=== PATIENT | male | born 1935 | race Caucasian/White ===

== ENCOUNTER 2016-06-18 19:48 | Emergency (ER) | payer MEDICARE ==
[2016-06-18 20:08] VITALS: BP 153/70
--- NOTE | 2016-06-18 21:49 | RAD ---
INDICATION: Renal injury. Anticoagulated. COMPARISON: CT brain January 01, 2015 TECHNIQUE: Noncontrast axial source images were acquired from the skull base to the vertex. FINDINGS: Ventricles/sulci: There is cortical atrophy with compensatory dilatation of the CSF spaces. Brain parenchyma: There is periventricular and subcortical white matter change compatible with chronic ischemia. Intracranial hemorrhage:None. Extra-axial spaces: There are no abnormal extra axial fluid collections or evidence of extra-axial mass. Calvarium: There is no calvarial fracture or other calvarial abnormality. Scalp: There is no evidence of scalp or extracalvarial soft tissue abnormality. Paranasal sinuses/mastoid: The paranasal sinuses and mastoid air cells are clear. Other: None. IMPRESSION: CORTICAL ATROPHY WITH CHRONIC MICROVASCULAR ISCHEMIC CHANGES. NO ACUTE FINDINGS.
--- NOTE | 2016-06-18 22:06 | RAD ---
INDICATION: Fall. Neck pain. COMPARISON: CTA head and neck October 10, 2014 TECHNIQUE: Noncontrast axial source images was performed from the skull base to the thoracic inlet. Coronal and and sagittal reformatted images were generated. FINDINGS: Vertebrae: There is no fracture or acute focal bony lesion. There is degenerative change from C3 through C6 with disc space narrowing, endplate sclerosis, anterior bony spur formation, and uncinate process spurring. There is mild multilevel foraminal narrowing. Alignment: The craniocervical junction appears normal. There is reversal normal cervical lordosis. Central Canal: There are no significant CT abnormalities of the central canal or foramina. MR imaging is a more sensitive method to evaluate the canal and foramina. Intervertebral disc spaces: Degenerative narrowing at C3 C6 through C6. Brain: The visualized brain appears unremarkable. Soft tissues: The visualized soft tissue elements of the neck are unremarkable. The prevertebral soft tissues appear normal. The lung apices are clear. IMPRESSION: MODERATE MIDCERVICAL OSTEOARTHRITIC CHANGE. NO ACUTE FINDINGS
--- NOTE | 2016-06-18 22:23 | RAD ---
INDICATION: Dislocation left third digit COMPARISON: None TECHNIQUE: AP, lateral, and oblique views were obtained. FINDINGS: There is dorsal dislocation at the proximal interphalangeal joint. No fracture is identified but postreduction films will better assess the presence of an underlying avulsion fracture. IMPRESSION: DORSAL DISLOCATION AT THE PIP
--- NOTE | 2016-06-19 07:40 | RAD ---
INDICATION: Left middle finger dislocation status post external reduction. COMPARISON: Comparison is made with a prior study of the same date. TECHNIQUE: 3 views of the left middle finger were obtained. FINDINGS: The bones are in normal alignment. There has been interval reduction of the previously noted dislocation of the proximal interphalangeal joint. There is focal soft tissue swelling at the level the proximal interphalangeal joint. In addition there is a small nondisplaced volar plate fracture at the base of the middle phalanx. IMPRESSION: STATUS POST EXTERNAL REDUCTION. THE BONES ARE IN NORMAL ALIGNMENT. THERE IS A NONDISPLACED VOLAR PLATE FRACTURE AT THE BASE OF THE MIDDLE PHALANX.
--- NOTE | 2016-07-05 22:52 | ED ---
Jerilyn Null Erika, scribed for Yash Joyner MD on 06/18/16 at 2123 . 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 Pt reports he tripped while holding something in his hands, so fell onto his left cheek. He states a painful abrasion to the face. He also reports that he injured the left middle finger, and notes pain and swelling to the finger. 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 Pt takes plavix. PSHx right carotid endarterectomy. 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 - Mechanism Of Injury: Fall From A Standing Position Onset/Duration: Started Hours Ago, Traumatic, Still Present Onset of Pain: Post Accident Severity Currently: Moderate Pain Intensity: 4 Pain Scale Used: 0-10 Numeric Location of Head Injury: Other: - Left facial Associated Signs And Symptoms: Swelling - middle finger left hand, Other: - abrasion Anticoagulant Therapy: Other: - plavix - Allergies/Home Medications Allergies/Adverse Reactions: Allergies Allergy/AdvReac Type Severity Reaction Status Date / Time Morphine AdvReac Hallucinati Verified 02/22/16 07:42 ons PMH/Surg Hx/FS Hx/Imm Hx Endocrine/Hematology History: Reports: Hx Anticoagulant Therapy, Hx Thyroid Disease, Hx Anemia - SLIGHT Denies: Hx Diabetes Cardiovascular History: Reports: Hx Angina, Hx Coronary Artery Disease, Hx Hypercholesterolemia, Hx Hypertension, Hx Myocardial Infarction Denies: Hx Congestive Heart Failure, Hx Pacemaker/ICD, Other Cardiovascular Problems/Disorders Respiratory History: Reports: Hx Sleep Apnea - has CPAP Denies: Hx Asthma, Hx Chronic Obstructive Pulmonary Disease (COPD), Other Respiratory Problems/Disorders GI History: Reports: Hx Gastroesophageal Reflux Disease, Hx Ulcer - Gastric, Other GI Disorders - ? gerd History: Reports: Other Problems/Disorders - ENLARGE PROSTATE Denies: Hx Renal Disease Musculoskeletal History: Reports: Hx Arthritis - LEFT KNEE, Hx Osteoporosis - LEFT KNEE, Other Musculoskeletal History - knee surgery Sensory History: Reports: Hx Cataracts, Hx Contacts or Glasses, Hx Hearing Aid, Other Sensory Impairments - left visual cut after CVA Opthamlomology History: Reports: Hx Cataracts, Hx Contacts or Glasses, Other Sensory Impairments - left visual cut after CVA Neurological History: Reports: Other Neuro Impairments/Disorders - CVA Denies: Hx Dementia, Hx Seizures Psychiatric History: Reports: Hx Anxiety - ONCE IN A WHILE Denies: Hx Panic Disorder, Hx Substance Abuse - Surgical History Surgery Procedure, Year, and Place: Coronary Angioplasty; Cataract Surgery; Right Bunionectomy; Right Knee Arthroscopy; Right Shoulder Surgery; Partial Thyroidectomy; Colonoscopy with Exc. of Polyps 2011, Knee surgery, 2015- right endarderectomy Hx Anesthesia Reactions: No Infectious Disease History: No Infectious Disease History: Reports: Hx Shingles - 2002 Denies: Hx Hepatitis, Hx Human Immunodeficiency Virus (HIV), Traveled Outside the [place] in Last 30 Days - Family History Known Family History: Positive: Cardiac Disease - Social History Lives: With Family Alcohol Use: None Hx Substance Use: No Substance Use Type: Reports: None Hx Tobacco Use: Yes Smoking Status (MU): Former Smoker Type: Cigarettes Amount Used/How Often: 3 packs a day 39 years ago Have You Smoked in the Last Year: No Review of Systems Positive: Arthralgia - left middle finger pain and swelling Skin: Other - painful abrasion to the left cheek Positive: Anxious All Other Systems Reviewed And Are Negative: Yes Physical Exam - Summary Physical Exam Summary: VITAL SIGNS: Reviewed. GENERAL: Patient is a well developed and nourished male who is lying comfortable in the stretcher. Patient is not in any acute respiratory distress. HEAD AND FACE: No ecchymosis, hematomas or skull depressions. No sinus tenderness. EYES: PERRLA, EOMI x 2, No injected conjunctiva, no nystagmus. No photophobia. EARS: Hearing grossly intact. Ear canals and tympanic membranes are within normal limits. MOUTH: Oropharynx within normal limits. NECK: Supple, trachea is midline, no adenopathy, no JVD, no carotid bruit, no c- spine tenderness, neck with full ROM. No meningeal signs, no Kernig's or brudzinskis signs. CHEST: Symmetric, no tenderness at palpation LUNGS: Clear to auscultation bilaterally. No wheezing or crackles. CVS: Regular rate and rhythm, S1 and S2 present, no murmurs or gallops appreciated. ABDOMEN: Soft, non-tender. No signs of distention. No rebound no guarding, and no masses palpated. Bowel sounds are normal. EXTREMITIES: FROM in all major joints, no edema, no cyanosis or clubbing. NEURO: Alert and oriented x 3. No acute neurological deficits. Speech is normal and follows commands. SKIN: Dry and warm. Positive abrasion of the left side of the face. Triage Information Reviewed: Yes Vital Signs On Initial Exam: Initial Vitals Temp Pulse Resp BP Pulse Ox 98.8 F 71 20 153/70 99 06/18/16 20:01 06/18/16 20:01 06/18/16 20:01 06/18/16 20:01 06/18/16 20:01 Vital Signs Reviewed: Yes - [place] Coma Scale Coma Scale Total: 15 Procedures - Procedure Summary Procedure Summary: Reduction of left middle finger: Infiltrated 2% lidocaine without epi for a digital block. I successfully reduced the dislocation. A splint was placed. The pt is feeling better. Diagnostics - Vital Signs Vital Signs Temp Pulse Resp BP Pulse Ox 06/18/16 20:01 98.8 F 71 20 153/70 99 - Laboratory Lab Statement: Any lab studies that have been ordered have been reviewed, and results considered in the medical decision making process. - Radiology L Middle Finger XR Radiology Interpretation Completed By: Radiologist - IMPRESSION: DORSAL DISLOCATION AT THE PIP L Middle Finger s/p reduction Xray Interpretation: No Acute Changes Radiology Interpretation Completed By: ED Physician - CT CT Brain CT Interpretation Completed By: Radiologist - IMPRESSION: CORTICAL ATROPHY WITH CHRONIC MICROVASCULAR ISCHEMIC CHANGES. NO ACUTE FINDINGS. C Spine CT CT Interpretation Completed By: Radiologist - IMPRESSION: MODERATE MIDCERVICAL OSTEOARTHRITIC CHANGE. 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 Pt reports he tripped while holding something in his hands, so fell onto his left cheek. He states a painful abrasion to the face. He also reports that he injured the left middle finger, and notes pain and swelling to the finger. 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 Pt takes plavix. PSHx right carotid endarterectomy. C spine CT impression : Osteoarthritis. No acute findings. Head Ct impression: Cortical atrophy with chronic microvascular ischemic changes. No acute. Left middle finger x ray impression: dorsally dislocated at the PIP. He is up to date with tetanus vaccine. I performed a digital block and I was able to reduce the dislocation. Post reduction X ray impression: successful reduction. I discussed all my findings and test results with the patient. Patient understands and agrees. Patient was instructed to return to the emergency room immediately if any of the symptoms return or worsens. Patient understands and agrees. Plan of care was discussed with the patient and patient understands and agrees with the plan of care. All questions were answered at patient satisfaction. There were no further complaints or concerns. Patient was instructed to follow up with primary care physician within 3 to 5 days. Patient is hemodynamically stable. Patient is alert and oriented x 3. No acute neurological deficits. - Diagnoses Differential Diagnosis/HQI/PQRI: Concussion Without LOC, Contusion Provider Diagnoses: Contusion of head, Facial contusion, Finger dislocation Discharge - Discharge Plan Condition: Stable Disposition: HOME Patient Education Materials: Scalp Contusion in Adults (ED), Finger Dislocation (ED) Referrals: Jason Dominguez MD [Primary Care Provider] - The documentation as recorded by the Jerilyn chambers Erika accurately reflects the service I personally performed and the decisions made by me, Yash Joyner MD.
== END 2016-06-18 23:54 | disposition home or self-care (01) ==
LOC: ED 19:48
DX: S00.93XA Contusion of unspecified part of head, initial encounter (principal); S63.253A Unspecified dislocation of left middle finger, initial encounter; W19.XXXA Unspecified fall, initial encounter; Y93.9 Activity, unspecified; Y92.9 Unspecified place or not applicable
CPT/HCPCS: 28510; 70450; 72125; 73140; 99282

== ENCOUNTER 2016-08-31 12:20 | Observation (INO) | payer MEDICARE ==
[2016-08-31 13:03] LABS: Hematocrit 40 % (42-52); Hemoglobin 13.5 g/dl (14.0-18.0); Mean Corpuscular HGB Conc 34 g/dl (31-36); Mean Corpuscular Hemoglobin 30 pg (27-31); Mean Corpuscular Volume 89 fL (80-94); Mean Platelet Volume 9 um3 (7.4-10.4); Red Blood Count 4.52 10^6/ul (4.0-5.4); Red Cell Distribution Width 13 % (10.5-15)
[2016-08-31 13:20] LABS: Albumin 3.6 g/dL (3.2-5.2); BUN/Creatinine Ratio 17.8 (8-20); Calcium 8.9 mg/dL (8.6-10.3); EGFR African American 104.4 (>60); EGFR Non-African American 81.2 (>60); Globulin 2.7 g/dL (2-4); Magnesium 2.2 mg/dL (1.9-2.7); Potassium 3.3 mmol/L (3.5-5.0); Total Bilirubin 0.4 mg/dL (0.2-1.0); Total Protein 6.3 g/dL (6.4-8.9)
[2016-08-31 13:39] LABS: TSH (Thyroid Stimulating Horm) 0.47 mcIU/mL (0.34-5.60)
[2016-08-31 16:18] LABS: Urine Bilirubin Negative (Negative); Urine Glucose Negative (Negative); Urine Nitrite Negative (Negative)
[2016-08-31] MEDS ORDERED: traZODone TAB* 50 MG TAB PO PRN (16:54)
[2016-08-31] MEDS ORDERED: LORazepam TAB(*) 0.5 MG PO PRN (16:54)
[2016-08-31] MEDS ORDERED: Enoxaparin(*) 40 MG/0.4 ML SYR SUBCUT SCH (17:00)
[2016-08-31] MEDS ORDERED: Ferrous Sulfate TAB* 325 MG PO SCH (17:00)
--- NOTE | 2016-08-31 17:20 | RAD ---
HISTORY: Dizziness, history of stroke COMPARISONS: June 18, 2016 TECHNIQUE: Multiple contiguous axial CT scans were obtained of the head without intravenous contrast. FINDINGS: HEMORRHAGE/INFARCT: There is no hemorrhage or acute infarct. MASSES/SHIFT: There is no mass or shift. EXTRA-AXIAL SPACES: There are no extra-axial fluid collections. SULCI AND VENTRICLES: The sulci and ventricles are normal in size and position for the patient's stated age. CEREBRUM: There is right parieto-occipital encephalomalacia consistent with remote infarct, stable from the previous examination. There is diffuse hypoattenuation of the periventricular and subcortical white matter BRAINSTEM: There are no focal parenchymal abnormalities. CEREBELLUM: There are no focal parenchymal abnormalities. VESSELS: The vessels are grossly normal. PARANASAL SINUSES: The paranasal sinuses are clear. ORBITS: The orbits are unremarkable. BONES AND SOFT TISSUE: No bone or soft tissue abnormalities are noted. OTHER: None IMPRESSION: PROXIMAL VESSEL ISCHEMIC CHANGES WITH STABLE RIGHT-SIDED ENCEPHALOMALACIA CONSISTENT WITH REMOTE INFARCT. NO ACUTE INTRACRANIAL PATHOLOGY.
[2016-08-31] MEDS ORDERED: Finasteride TAB* 5 MG PO SCH (18:00)
[2016-08-31] MEDS ORDERED: Tamsulosin CAP* 0.4 MG PO SCH (18:00)
--- NOTE | 2016-08-31 21:13 | HP ---
ADMISSION HISTORY AND PHYSICAL: DATE OF ADMISSION: 08/31/16 PRIMARY CARE PROVIDER: Dr. Jason Dominguez. ADMITTING PROVIDER: DEBORAH Hamm SUPERVISING PHYSICIAN: Dr. Cassidy Moeller.* (dictated by DEBORAH Hamm) CHIEF COMPLAINT: Dizziness. HISTORY OF PRESENT ILLNESS: This is an 81-year-old gentleman with history of coronary artery disease, status post balloon angioplasty, as well as history of prior CVA, hypertension, hyperlipidemia, hypothyroidism, obstructive sleep apnea , and GERD. The patient states that he has dizziness most morning. He states that it is not true dizziness. He reports it as "acclimating to being upright. " These symptoms generally last only a couple of minutes but today, he was dizzy for several hours this morning and became concerned about a new stroke, so he came to the emergency department via EMS. The patient was active this morning. He was up to eat breakfast and started working on renovation in his bathroom. He noted when he was carrying a piece of lumber outside to cut it that he was still quite dizzy. He did not lose consciousness or fall. He actually brought the piece of lumber back upstairs and secured it in place prior to letting his know about the dizziness at which point EMS was contacted. The patient reported developing left foot numbness after reaching the emergency department. His dizziness resolved after EMS arrived. No confusion, changes in speech, headache, blurred vision, double vision. No associated weakness, no other numbness apart from the left foot that was mentioned. The patient states that he did recently mention some difficulty swallowing to his primary care provider and it sounds like he has had a prior esophageal stricture and he is going to be scheduled for a repeat EGD in the near future. At the time of evaluation, the patient denies chest pain or shortness of breath. No palpitations. No recent illness. No abdominal pain, nausea, or vomiting. His only complaint is some persistent left foot numbness. PAST MEDICAL HISTORY: 1. Coronary artery disease, status post balloon angioplasty. 2. Hypertension. 3. Hyperlipidemia. 4. Hypothyroidism. 5. History of prior CVA with some mild residual left-sided neglect, but otherwise no significant residual deficits. 6. Anxiety and depression. 7. Obstructive sleep apnea, compliant with CPAP. PAST SURGICAL HISTORY: 1. Rotator cuff repair. 2. Bilateral cataracts. 3. Left knee arthroscopy. HOME MEDICATIONS: 1. Lisinopril 5 mg p.o. daily. 2. Levothyroxine 150 mcg p.o. daily. 3. Atenolol 25 mg p.o. daily. 4. Adderall extended release 15 mg p.o. daily. 5. Plavix 75 mg p.o. daily. 6. Atorvastatin 80 mg p.o. daily. 7. Lorazepam 0.5 mg p.o. as needed for anxiety. 8. Trazodone 50 mg p.o. at bedtime as needed for sleep. SOCIAL HISTORY: The patient lives at home with his . Has a greater than 120- pack-year smoking history and quit about 40 years ago. Denies any regular alcohol consumption. 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 REVIEW OF SYSTEMS: As listed above in HPI. PHYSICAL EXAMINATION GENERAL: This is a pleasant elderly gentleman in no acute distress, lying comfortably in hospital stretcher, accompanied by his . VITAL SIGNS: Temperature 98 degrees Fahrenheit, pulse 68 beats per minute , respiratory rate 18 per minute, oxygen saturation 96% on room air, and blood pressure 141/63 mmHg. HEENT: Head is normocephalic and atraumatic. Mucous membranes are pink and moist, with dentures in place. RESPIRATORY: Lungs are clear to auscultation without wheezes, crackles, or rhonchi. CARDIOVASCULAR: There is a subtle murmur appreciated; it sounds consistent with perhaps aortic stenosis but regular rate and rhythm. ABDOMEN: Abdomen is soft and nontender to palpation. EXTREMITIES: No lower extremity edema. PSYCH: The patient is alert and appropriately oriented. SKIN: Limited exam shows no concerning rashes or lesions. DIAGNOSTIC STUDIES/LAB DATA: CBC shows a white blood cell count of 6000, hemoglobin 13.5 g/dL, and platelet count of 162,000. Comprehensive metabolic panel shows a sodium of 140 mmol/L, potassium 3.3, BUN 16, and creatinine 0.90 with estimated GFR of 81. Lactic acid 1.5. Transaminases and total bilirubin within normal limits. Troponin negative at 0.00. TSH within normal limits at 0.47. Urinalysis is unremarkable. Imaging: EKG shows a normal sinus rhythm. CT of the brain is pending. ASSESSMENT AND PLAN: This is an 81-year-old gentleman with a history of prior cerebrovascular accident; coronary artery disease, status post balloon angioplasty; hypertension; hyperlipidemia; gastroesophageal reflux disease; obstructive sleep apnea; depression and anxiety, who presented to the emergency department with complaints of dizziness and left foot numbness. The patient is being admitted to observation status for concern of possible transient ischemic attack. 1. Dizziness - the patient is currently asymptomatic with the exception of left foot numbness. Low likelihood that this represents cerebrovascular accident or transient ischemic attack. He had carotid imaging done just 6 months ago in March of 2016, which demonstrated prior right carotid endarterectomy but no significant stenosis and less than 50% left internal carotid stenosis. We will not repeat vascular imaging. CT of the brain has been ordered and currently pending. We will order an MRI of the brain without contrast. There is also a subtle murmur appreciated on exam. Last echocardiogram is from 2014, which shows mild aortic stenosis. We will repeat echocardiogram to evaluate for progression of his aortic stenosis that may be contributing to his complaints of dizziness. Orthostatic vital signs were obtained in the emergency department and were negative. Also, consider pharmacologic causes of his dizziness. Specifically question the use of amphetamine in this elderly gentleman. The patient states that this was prescribed for his depression, but certainly maybe contributing to his complaint of dizziness. He states that the dizziness that occurs each morning has been there since his prior stroke and was not influenced after initiating amphetamines, which occurred about 9 months ago. 2. Coronary artery disease - no evidence of acute coronary syndrome. We will plan to continue his aspirin, beta marciano, and statin. 3. Hypothyroidism - TSH within normal limits. Continue his current dose of levothyroxine. 4. Hypertension - continue atenolol and lisinopril. 5. Hyperlipidemia - continue atorvastatin. 6. Depression and anxiety - we will continue his current home regimen, which includes extended release Adderall and p.r.n. lorazepam as well as bedtime trazodone, but recommend reviewing this regimen with primary care provider and psychiatrist. 7. Obstructive sleep apnea - the patient brought his CPAP with him and will be ordered for his use this evening. 8. Code status - the patient is full code. 9. Healthcare proxy is his . 10. DVT prophylaxis - the patient is at moderate risk for DVT and will be placed on Lovenox 40 mg subcu daily. DISPOSITION: The patient is being admitted to observation status for complaints of dizziness. Anticipate discharge tomorrow following appropriate evaluation. DEBORAH HAMM CC: Dr. Jason Dominguez* [id number]/CPS #: [id number] MTDD
--- NOTE | 2016-08-31 22:14 | RAD ---
HISTORY: Dizziness COMPARISONS: PET CT dated August 31, 2016, MRI dated July 04, 2011 TECHNIQUE: The following sequences were obtained of the head: Sagittal T1-weighted images, axial T2-weighted images, axial FLAIR images, axial susceptibility weighted images, axial T1-weighted images. Additionally, axial diffusion-weighted images were obtained with calculated apparent diffusion coefficients. FINDINGS: HEMORRHAGE/INFARCT: There is no hemorrhage or acute infarct. MASSES/SHIFT: There is no mass or shift. EXTRA-AXIAL SPACES/MENINGES: There are no extra-axial fluid collections. SULCI AND VENTRICLES: The sulci and ventricles are normal in size and position for the patient's stated age. CEREBRUM: There is confluent elevated T2/FLAIR signal in the periventricular and subcortical white matter, with more focal areas of encephalization within the right frontal and parieto-occipital regions consistent with remote infarct. There are innumerable punctate foci susceptibility artifact suggestive of chronic microhemorrhage. BRAINSTEM: There are no focal parenchymal abnormalities. CEREBELLUM: There are no focal parenchymal abnormalities. The cerebellar tonsils are normal in size and position. SELLA: The sella is normal. PINEAL: The pineal region is clear. CP ANGLE/TEMPORAL BONES: The labyrinthine structures are grossly normal. VESSELS: Normal flow-voids are noted within the visualized vertebral vasculature. DIFFUSION ABNORMALITIES: There are no diffusion abnormalities. PARANASAL SINUSES/MASTOIDS: The paranasal sinuses are clear. ORBITS: The orbits are unremarkable. BONES AND SOFT TISSUE: No bone or soft tissue abnormalities are noted. OTHER: None IMPRESSION: 1. FINDINGS SUGGESTIVE OF REMOTE WATERSHED INFARCT ON THE RIGHT. 2. CHRONIC SMALL VESSEL ISCHEMIC CHANGES. 3. INNUMERABLE FOCI OF SUSCEPTIBILITY ARTIFACT SUGGESTIVE OF CHRONIC HEMORRHAGE IN THE SETTING OF UNTREATED HYPERTENSION, THOUGH AMYLOID ANGIOPATHY IS ALSO WITHIN THE DIFFERENTIAL.. 4. THERE IS NO RESTRICTED DIFFUSION TO SUGGEST ACUTE INFARCT.
[2016-09-01 05:48] LABS: BUN/Creatinine Ratio 14.3 (8-20); Calcium 8.5 mg/dL (8.6-10.3); EGFR African American 113.1 (>60); EGFR Non-African American 87.9 (>60); Potassium 3.2 mmol/L (3.5-5.0)
[2016-09-01] MEDS ORDERED: Levothyroxine TAB* 150 MCG TAB PO SCH (06:00)
--- NOTE | 2016-09-01 07:33 | ED ---
Josh Null Salem, scribed for Jorge Watt MD on 08/31/16 at 1326 . Dizziness - HPI Summary HPI Summary: Patient is a 81 y/o male who presents to the ED with dizziness and lightheadedness since this morning. He explains that he has sleep apnea and that he woke up this morning (around 0230) because his mask was leaking. He states that while his mask has leaked in the past, this is the worse it has been. Pt reports he has dizziness every morning for approximately 30 minutes. He denies diarrhea, abd pain, SOB, or chest pain. 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 Pt is on Plavix. 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 Timing: Intermittent Episode Lasting - 30 minutes, every morning. Severity Initially: Moderate Severity Currently: Moderate Character: Lightheaded, Dizzy Aggravating Factor(s): Nothing Alleviating Factor(s): Nothing Associated Signs And Symptoms: Negative: Nausea, Vomiting, Diarrhea, Chest Pain , SOB - Allergies/Home Medications Allergies/Adverse Reactions: Allergies Allergy/AdvReac Type Severity Reaction Status Date / Time Morphine AdvReac Hallucinati Verified 08/31/16 13:02 ons Home Medications: Home Medications Amphetamine/Dextroamph ER(NF) [Adderal XR (NF)] 15 mg PO DAILY 08/31/16 [ History Confirmed 08/31/16] Cholecalciferol [Vitamin D] 1,000 mg PO DAILY 08/31/16 [History Confirmed ] PMH/Surg Hx/FS Hx/Imm Hx Endocrine/Hematology History: Reports: Hx Anticoagulant Therapy, Hx Thyroid Disease, Hx Anemia - SLIGHT Denies: Hx Diabetes Cardiovascular History: Reports: Hx Angina, Hx Coronary Artery Disease, Hx Hypercholesterolemia, Hx Hypertension, Hx Myocardial Infarction Denies: Hx Congestive Heart Failure, Hx Pacemaker/ICD, Other Cardiovascular Problems/Disorders Respiratory History: Reports: Hx Sleep Apnea - has CPAP Denies: Hx Asthma, Hx Chronic Obstructive Pulmonary Disease (COPD), Other Respiratory Problems/Disorders GI History: Reports: Hx Gastroesophageal Reflux Disease, Hx Ulcer - Gastric, Other GI Disorders - ? gerd History: Reports: Other Problems/Disorders - ENLARGE PROSTATE Denies: Hx Renal Disease Musculoskeletal History: Reports: Hx Arthritis - LEFT KNEE, Hx Osteoporosis - LEFT KNEE, Other Musculoskeletal History - knee surgery Sensory History: Reports: Hx Cataracts, Hx Contacts or Glasses, Hx Hearing Aid, Other Sensory Impairments - left visual cut after CVA Opthamlomology History: Reports: Hx Cataracts, Hx Contacts or Glasses, Other Sensory Impairments - left visual cut after CVA Neurological History: Reports: Other Neuro Impairments/Disorders - CVA Denies: Hx Dementia, Hx Seizures Psychiatric History: Reports: Hx Anxiety - ONCE IN A WHILE Denies: Hx Panic Disorder, Hx Substance Abuse - Surgical History Surgery Procedure, Year, and Place: Coronary Angioplasty; Cataract Surgery; Right Bunionectomy; Right Knee Arthroscopy; Right Shoulder Surgery; Partial Thyroidectomy; Colonoscopy with Exc. of Polyps 2011, Knee surgery, 2014- right endarderectomy Hx Anesthesia Reactions: No Infectious Disease History: No Infectious Disease History: Reports: Hx Shingles - 2002 Denies: Hx Hepatitis, Hx Human Immunodeficiency Virus (HIV), Traveled Outside the [place] in Last 30 Days - Family History Known Family History: Positive: Cardiac Disease - Social History Alcohol Use: None Hx Substance Use: No Substance Use Type: Reports: None Hx Tobacco Use: Yes Smoking Status (MU): Former Smoker Type: Cigarettes Amount Used/How Often: 3 packs a day 39 years ago Have You Smoked in the Last Year: No Review of Systems Negative: Fever, Chills Negative: Erythema Negative: Sore Throat Negative: Chest Pain Negative: Shortness Of Breath, Cough Negative: Abdominal Pain, Vomiting, Diarrhea, Nausea Negative: dysuria, hematuria Negative: Myalgia Negative: Rash Neurological: Other - Dizziness. Lightheadedness. All Other Systems Reviewed And Are Negative: Yes Physical Exam - Summary Physical Exam Summary: Physical Exam: Constitutional: Well-developed, Well-nourished, Alert. (-) Distressed Skin: Warm, Dry HENT: Eyes: Conjunctiva normal Neck: Musculoskeletal ROM normal neck. (-) JVD, (-) Stridor, (-) Tracheal deviation Cardio: Rhythm regular, rate normal, Heart sounds normal; Intact distal pulses ; The pedal pulses are 2+ and symmetric. Radial pulses are 2+ and symmetric. (- ) Murmur Pulmonary/Chest wall: Effort normal. (-) Respiratory distress, (-) Wheezes, (-) Rales Abd: Soft. (-) Tenderness, (-) Distension, (-) Guarding, (-) Rebound Musculoskeletal: (-) Edema Lymph: (-) Cervical adenopathy Neuro: Alert, Oriented x3, Strength normal, Cranial nerves II-XII are grossly intact. (-) Dysmetria, (-) Nystagmus, (-) Ataxia by finger to nose testing, (-) Sensory deficit. Chronic slight dysarthric speech. Chronic left facial droop. Psych: Mood and affect Normal Physical Exam repeated @ 1541: Constitutional: Well-developed, Well-nourished, Alert. (-) Distressed Skin: Warm, Dry HENT: Eyes: Conjunctiva normal Neck: Musculoskeletal ROM normal neck. (-) JVD, (-) Stridor, (-) Tracheal deviation Cardio: Rhythm regular, rate normal, Heart sounds normal; Intact distal pulses ; The pedal pulses are 2+ and symmetric. Radial pulses are 2+ and symmetric. (- ) Murmur Pulmonary/Chest wall: Effort normal. (-) Respiratory distress, (-) Wheezes, (-) Rales Abd: Soft. (-) Tenderness, (-) Distension, (-) Guarding, (-) Rebound Musculoskeletal: (-) Edema Lymph: (-) Cervical adenopathy Neuro: Alert, Oriented x3, Strength normal, Cranial nerves II-XII are grossly intact. (-) Dysmetria, (-) Nystagmus, (-) Ataxia by finger to nose testing, (-) Sensory deficit. Diminished sensation over the left foot. Psych: Mood and affect Normal Triage Information Reviewed: Yes Vital Signs On Initial Exam: Initial Vitals Temp Pulse Resp BP Pulse Ox 98.0 F 62 16 128/59 96 08/31/16 12:25 08/31/16 12:25 08/31/16 12:25 08/31/16 12:25 08/31/16 12:25 Vital Signs Reviewed: Yes - [place] Coma Scale Coma Scale Total: 15 Diagnostics - Vital Signs Vital Signs Temp Pulse Resp BP Pulse Ox 08/31/16 13:16 74 137/99 08/31/16 13:10 58 13 137/99 95 08/31/16 13:07 60 16 114/51 96 08/31/16 13:00 63 16 95 08/31/16 12:35 61 15 96 08/31/16 12:25 98.0 F 62 16 128/59 96 - Laboratory Lab Results: Lab Results 08/31/16 08/31/16 08/31/16 Range/Units 12:45 12:45 12:45 WBC 6.0 (3.5-10.8) 10^3/ul RBC 4.52 (4.0-5.4) 10^6/ul Hgb 13.5 L (14.0-18.0) g/dl Hct 40 L (42-52) % MCV 89 (80-94) fL MCH 30 (27-31) pg MCHC 34 (31-36) g/dl RDW 13 (10.5-15) % Plt Count 162 (150-450) 10^3/ul MPV 9 (7.4-10.4) um3 Neut % (Auto) 69.4 (38-83) % Lymph % (Auto) 19.9 L (25-47) % [place] % (Auto) 8.4 (1-9) % Eos % (Auto) 2.0 (0-6) % Baso % (Auto) 0.3 (0-2) % Absolute Neuts (auto) 4.2 (1.5-7.7) 10^3/ul Absolute Lymphs (auto) 1.2 (1.0-4.8) 10^3/ul Absolute Monos (auto) 0.5 (0-0.8) 10^3/ul Absolute Eos (auto) 0.1 (0-0.6) 10^3/ul Absolute Basos (auto) 0 (0-0.2) 10^3/ul Absolute Nucleated RBC 0 10^3/ul Nucleated RBC % 0 Sodium 140 (133-145) mmol/L Potassium 3.3 L (3.5-5.0) mmol/L Chloride 103 (101-111) mmol/L Carbon Dioxide 32 (22-32) mmol/L Anion Gap 5 (2-11) mmol/L BUN 16 (6-24) mg/dL Creatinine 0.90 (0.67-1.17) mg/dL Est GFR ( Amer) 104.4 (>60) Est GFR (Non-Af Amer) 81.2 (>60) BUN/Creatinine Ratio 17.8 (8-20) Glucose 153 H (70-100) mg/dL Lactic Acid 1.5 (0.5-2.0) mmol/L Calcium 8.9 (8.6-10.3) mg/dL Magnesium 2.2 (1.9-2.7) mg/dL Total Bilirubin 0.40 (0.2-1.0) mg/dL AST 20 (13-39) U/L ALT 22 (7-52) U/L Alkaline Phosphatase 58 (34-104) U/L Troponin I 0.00 (<0.04) ng/mL Total Protein 6.3 L (6.4-8.9) g/dL Albumin 3.6 (3.2-5.2) g/dL Globulin 2.7 (2-4) g/dL Albumin/Globulin Ratio 1.3 (1-3) TSH Pending Result Diagrams: 08/31/16 12:45 08/31/16 12:45 Lab Statement: Any lab studies that have been ordered have been reviewed, and results considered in the medical decision making process. - EKG 1240 EKG Rhythm: Sinus Bradycardia - 59 bpm. EKG Interpretation: No STEMI. Dizzy Course/Dx - Course Course Of Treatment: Pt came in for dizziness. EKG was negative. R/o neurologic event and r/o cardiac event given past hx of CAD and prior stroke. - Diagnoses Provider Diagnoses: Dizziness, CVA (cerebral vascular accident) - Provider Notifications Discussed Care Of Patient with: Dr. Rios (hospitalist) @ 1214. Will admit. Dr. Rois @ 6251. Informed her that pt has been experiencing diminished sensation over his left foot since the initial physical exam. Discharge - Discharge Plan Condition: Stable Disposition: ADMITTED TO [facility] Referrals: Jason Dominguez MD [Primary Care Provider] - The documentation as recorded by the Josh chambers [place] accurately reflects the service I personally performed and the decisions made by , Jorge Watt MD.
--- NOTE | 2016-09-01 08:30 | PN ---
Subjective Date of Service: 09/01/16 Interval History: Patient seen by his PCP Dr. Dominguez this AM. In their discussion, Mr. Black expressed that he usually wakes up with dizziness following his previous CVA. This episode was different, as the dizziness persisted longer than normal and was accompanied by left foot numbness/tingling. This morning he denies any dizziness and reports that the left foot tingling/numbness has resolved. In regards to the patient's Adderall, the patient states that this is prescribed by Dr. Aparicio for the patient's depression; he reports that without the medication, he has a harder time managing his depression. The patient has been on this medication for awhile and denies that the dizziness occurred or worsened after the initiation of this medication. Family History: Unchanged from Admission Social History: Unchanged from Admission Past Medical History: Unchanged from Admission Objective Active Medications: Amphetamine/Dextroamphetamine (Adderal Xr (Nf)) 15 mg PO DAILY [facility] Aspirin (Aspirin Ec Low Dose*) 81 mg PO DAILY [facility] Atenolol (Tenormin Tab*) 25 mg PO DAILY [facility] Clopidogrel Bisulfate (Plavix Tab*) 75 mg PO DAILY [facility] Enoxaparin Sodium (Lovenox(*)) 40 mg SUBCUT Q24H [facility] Last Admin: 08/31/16 17:47 Dose: 40 mg Ferrous Sulfate (Ferrous Sulfate Tab*) 325 mg PO TUTH [facility] Last Admin: 08/31/16 17:46 Dose: 325 mg Finasteride (Proscar Tab*) 5 mg PO QPM [facility] Last Admin: 08/31/16 17:47 Dose: 5 mg Levothyroxine Sodium (Synthroid Tab*) 150 mcg PO 0600 [facility] Last Admin: 09/01/16 05:10 Dose: 150 mcg Lisinopril (Prinivil Tab*) 5 mg PO DAILY [facility] Lorazepam (Ativan Tab(*)) 0.5 mg PO DAILY PRN PRN Reason: ANXIETY Last Admin: 08/31/16 22:33 Dose: 0.5 mg Potassium Chloride (Klor Con Er Tab*) 40 meq PO ONCE ONE Stop: 09/01/16 09:01 Tamsulosin HCl (Flomax Cap*) 0.4 mg PO QPM [facility] Last Admin: 08/31/16 17:47 Dose: 0.4 mg Trazodone HCl (Desyrel Tab*) 50 mg PO BEDTIME PRN PRN Reason: SLEEP Last Admin: 08/31/16 22:33 Dose: 50 mg Vital Signs 08/31/16 08/31/16 08/31/16 16:00 16:30 16:33 Temperature 98.1 F Pulse Rate 80 69 68 Respiratory 20 17 18 Rate Blood Pressure 167/83 141/63 (mmHg) O2 Sat by Pulse 96 96 Oximetry 08/31/16 08/31/16 08/31/16 17:19 17:20 19:35 Temperature 98.3 F 98.3 F Pulse Rate 66 63 Respiratory 18 18 17 Rate Blood Pressure 165/68 133/64 (mmHg) O2 Sat by Pulse 96 98 Oximetry 08/31/16 08/31/16 09/01/16 22:33 23:31 00:33 Temperature 97.2 F Pulse Rate 65 Respiratory 17 16 17 Rate Blood Pressure 136/75 (mmHg) O2 Sat by Pulse 98 Oximetry 09/01/16 09/01/16 09/01/16 02:33 04:00 07:04 Temperature 97.8 F Pulse Rate 66 Respiratory 17 18 18 Rate Blood Pressure 134/62 (mmHg) O2 Sat by Pulse 97 Oximetry 09/01/16 07:19 Temperature 98.1 F Pulse Rate 67 Respiratory 18 Rate Blood Pressure 139/61 (mmHg) O2 Sat by Pulse 98 Oximetry Oxygen Devices in Use Now: None Appearance: Elderly male, lying in bed, in NAD Eyes: PERRLA Ears/Nose/Mouth/Throat: Clear Oropharnyx, Mucous Membranes Moist Neck: NL Appearance and Movements; NL JVP Respiratory: Symmetrical Chest Expansion and Respiratory Effort, Clear to Auscultation Cardiovascular: NL Sounds; No Murmurs; No JVD, RRR Abdominal: NL Sounds; No Tenderness; No Distention Extremities: No Edema Skin: No Rash or Ulcers Neurological: Alert and Oriented x 3, - - mild left facial droop - within baseline per Lines/Tubes/Other Access: Clean, Dry and Intact Peripheral IV Nutrition: Taking PO's Result Diagrams: 08/31/16 12:45 09/01/16 05:00 Additional Lab and Data: Lab Results 08/31/16 08/31/16 08/31/16 Range/Units 12:45 12:45 12:45 WBC 6.0 (3.5-10.8) 10^3/ul RBC 4.52 (4.0-5.4) 10^6/ul Hgb 13.5 L (14.0-18.0) g/dl Hct 40 L (42-52) % MCV 89 (80-94) fL MCH 30 (27-31) pg MCHC 34 (31-36) g/dl RDW 13 (10.5-15) % Plt Count 162 (150-450) 10^3/ul MPV 9 (7.4-10.4) um3 Neut % (Auto) 69.4 (38-83) % Lymph % (Auto) 19.9 L (25-47) % [place] % (Auto) 8.4 (1-9) % Eos % (Auto) 2.0 (0-6) % Baso % (Auto) 0.3 (0-2) % Absolute Neuts (auto) 4.2 (1.5-7.7) 10^3/ul Absolute Lymphs (auto) 1.2 (1.0-4.8) 10^3/ul Absolute Monos (auto) 0.5 (0-0.8) 10^3/ul Absolute Eos (auto) 0.1 (0-0.6) 10^3/ul Absolute Basos (auto) 0 (0-0.2) 10^3/ul Absolute Nucleated RBC 0 10^3/ul Nucleated RBC % 0 Sodium 140 (133-145) mmol/L Potassium 3.3 L (3.5-5.0) mmol/L Chloride 103 (101-111) mmol/L Carbon Dioxide 32 (22-32) mmol/L Anion Gap 5 (2-11) mmol/L BUN 16 (6-24) mg/dL Creatinine 0.90 (0.67-1.17) mg/dL Est GFR ( Amer) 104.4 (>60) Est GFR (Non-Af Amer) 81.2 (>60) BUN/Creatinine Ratio 17.8 (8-20) Glucose 153 H (70-100) mg/dL Lactic Acid 1.5 (0.5-2.0) mmol/L Calcium 8.9 (8.6-10.3) mg/dL Magnesium 2.2 (1.9-2.7) mg/dL Total Bilirubin 0.40 (0.2-1.0) mg/dL AST 20 (13-39) U/L ALT 22 (7-52) U/L Alkaline Phosphatase 58 (34-104) U/L Troponin I 0.00 (<0.04) ng/mL Total Protein 6.3 L (6.4-8.9) g/dL Albumin 3.6 (3.2-5.2) g/dL Globulin 2.7 (2-4) g/dL Albumin/Globulin Ratio 1.3 (1-3) TSH Pending Assess/Plan/Problems-Billing Assessment: Mr. Black is an 81 yo male with a PMH of CAD s/p balloon angioplasty, HTN, HLD, hypothyroidism, previous CVA, anxiety and depression, and PRAKASH who presented to the ED on 08/31/16 with dizziness. - Patient Problems (1) Dizziness Code(s): R42 - DIZZINESS AND GIDDINESS Comment: No further episodes. Patient has chronic dizziness following previous CVA. CT/MRI negative for acute pathology but show old infarct and chronic changes. May be secondary to medications, but patient reluctant to stop any of his medications. Plan to f/u with PCP next week for continued evaluation. (2) Coronary atherosclerosis Code(s): I25.10 - ATHSCL HEART DISEASE OF [place] CORONARY ARTERY W/O ANG PCTRS Comment: No evidence of ACS. Continue ASA, atenolol, atorvastatin. (3) Hyperlipemia Code(s): E78.5 - HYPERLIPIDEMIA, UNSPECIFIED Comment: Continue statin. (4) Hypertension Code(s): I10 - ESSENTIAL (PRIMARY) HYPERTENSION Comment: Normotensive, continue atenolol and lisinopril. (5) Hypothyroidism Code(s): E03.9 - HYPOTHYROIDISM, UNSPECIFIED Comment: Continue levothyroxine. (6) History of CVA (cerebrovascular accident) Code(s): Z86.73 - PRSNL HX OF TIA (TIA), AND CEREB INFRC W/O RESID DEFICITS Comment: With mild residual left-sided neglect. (7) Depression with anxiety Comment: Patient reluctant to adjust medications as they manage his symptoms well; medications discussed with PCP this AM at bedside. Plan to continue Adderall, trazodone, prn lorazepam Outpatient follow-up with PCP and Member (8) PRAKASH (obstructive sleep apnea) Code(s): G47.33 - OBSTRUCTIVE SLEEP APNEA (ADULT) (PEDIATRIC) Comment: Continue home CPAP use. (9) DVT prophylaxis Code(s): [id number] - Comment: SQ Lovenox (10) Full code status Code(s): Z78.9 - OTHER SPECIFIED HEALTH STATUS Status and Disposition: OBV admit. D/c to home.
[2016-09-01] MEDS ORDERED: Aspirin EC Low Dose* 81 MG TAB.EC PO SCH (09:00)
[2016-09-01] MEDS ORDERED: Potassium Chlor TAB* 20 MEQ TAB.ER PO ONE (09:00)
[2016-09-01] MEDS ORDERED: Atenolol TAB* 25 MG PO SCH (09:00)
[2016-09-01] MEDS ORDERED: Lisinopril TAB* 5 MG PO SCH (09:00)
[2016-09-01] MEDS ORDERED: Clopidogrel TAB* 75 MG PO SCH (09:00)
[2016-09-01] MEDS ORDERED: Amphetamine/Dextroamph ER(NF) 15 MG CAP.ER PO SCH (09:00)
--- NOTE | 2016-09-01 10:53 | ECHO ---
Patient: HUMA BLUE [facility] Rec#: [id number] : 1935 Date: 09/01/2016 Age: 81y Height: 176.53 cm / 69.5 in Weight: 86.64 kg / 191.0 lbs Sex: M BSA: 2.04 Room#: [facility] Admit Date#: 08/31/2016 Type: Inpatient Referring: Percy Gavin Reading: Olaf Hahn MD Script Artist: Merna Rodriguez RN RDCS Script Artist: Veronica Soto CC: Jason Dominguez MD Transthoracic Echocardiogram Indication: Dizziness, cardiac murmur BP: 134/62 HR: 65 Rhythm: NSR Findings History: HTN, CAD s/p PCI and balloon angioplasty, prior CVA, HLD, hypothyroidism, PRAKASH with CPAP, GERD, depression and anxiety, mild . Technical Comments: The study is technically limited due to patient body habitus. Completed at 0945. Left Ventricle: The left ventricular chamber size is normal. Mild concentric left ventricular hypertrophy is observed. There is a prominent septal knuckle. Global left ventricular wall motion and contractility are within normal limits. There is normal left ventricular systolic function. The estimated ejection fraction is 55-60%. Abnormal left ventricular diastolic filling is observed, consistent with impaired relaxation. The left ventricular diastolic filling pattern is consistent with elevated left ventricular end-diastolic pressure. Left Atrium: The left atrium is mildly dilated. Right Ventricle: The right ventricular cavity size is normal. The right ventricular global systolic function is normal. Right Atrium: The right atrial cavity size is normal. Aortic Valve: The aortic valve is trileaflet. Mild aortic leaflet calcification is visualized. Systolic excursion of the aortic valve cusps is reduced. There is aortic annular calcification. There is mild aortic regurgitation. There is mild aortic stenosis. Highest aortic valve velocity was acquired with Pedoff in apical position. Mitral Valve: There is mitral annular calcification. The mitral valve leaflets are mildly thickened. There is mild mitral regurgitation. There is no evidence of mitral stenosis. Tricuspid Valve: The tricuspid valve leaflets are normal. There is mild tricuspid regurgitation. No pulmonary hypertension is noted. There is no tricuspid stenosis. Pulmonic Valve: The pulmonic valve appears normal. There is a trace pulmonic regurgitation. There is no pulmonic stenosis. Pericardium: There is no significant pericardial effusion. A pericardial fat pad is visualized. Aorta: There is no dilatation of the ascending aorta. There is no dilatation of the aortic arch. There is no dilation of the aortic root. Pulmonary Artery: The main pulmonary artery appears normal. Venous: The inferior vena cava appears normal in size. There is a greater than 50% respiratory change in the inferior vena cava dimension. Summary: There are changes noted when compared to the previous study done on 02/29/2016, TR is mild instead of trace then. Conclusions The left ventricular chamber size is normal. Mild concentric left ventricular hypertrophy is observed. There is normal left ventricular systolic function. The estimated ejection fraction is 55-60%. Abnormal left ventricular diastolic filling is observed, consistent with impaired relaxation. The left ventricular diastolic filling pattern is consistent with elevated left ventricular end-diastolic pressure. The left atrium is mildly dilated. There is mild aortic regurgitation. There is mild aortic stenosis. There is mild mitral regurgitation. There is mild tricuspid regurgitation. No pulmonary hypertension is noted. Measurements Name Value Normal Range RVIDd (AP) 2D 2.5 cm (0.9 - 2.6) RVDdMajor (2D) 3.3 cm (2.2 - 4.4) RAd ISD 4CH 4.8 cm (3.4 - 4.9) RA (A4C)W 3.8 cm (2.9 - 4.6) IVSd (2D) 1.2 cm (0.6 - 1) LVPWd (2D) 1.1 cm (0.6 - 1) LVIDd (2D) 4.9 cm (3.6 - 5.4) LVIDs (2D) 3.1 cm - LV FS (2D) 35 % (25 - 45) Aortic Annulus 2 cm (1.4 - 2.6) Ao root diameter (2D) 3.2 cm (2.1 - 3.5) Ascending Ao 3.1 cm (2.1 - 3.4) Aortic arch 2 cm (1.8 - 3.4) LA dimension (AP) 2D 4.6 cm (2.3 - 3.8) LAd ISD 4CH 5.7 cm (2.9 - 5.3) LA ISD 4CH W 5.8 cm (2.5 - 4.5) Name Value Normal Range LA ESV SP 4CH (A/L) 98 ml - LA ESV SP 2CH (A/L) 60 ml - LA ESV BP (A/L) 79 ml - LA ESV BP (A/L) index 38.49 ml/m2 - LA ESV SP 4CH (MOD) 89 ml - LA ESV SP 2CH (MOD) 57 ml - Name Value Normal Range MV E-wave Vmax 0.7 m/sec - MV deceleration time 230 msec - MV A-wave Vmax 1.1 m/sec - MV E:A ratio 0.6 ratio - LV septal e' Vmax 0.04 m/sec - LV lateral e' Vmax 0.05 m/sec - LV E:e' septal ratio 17.5 ratio - LV E:e' lateral ratio 14 ratio - Name Value Normal Range AV Vmax 2.4 m/sec - AV VTI 37 cm - AV peak gradient 24 mmHg - AV mean gradient 12 mmHg - LVOT diameter 2.1 cm - LVOT Vmax 1.1 m/sec - LVOT VTI 21 cm - LVOT peak gradient 5 mmHg - LVOT mean gradient 3 mmHg - LINUS (continuity Vmax) 2 cm2 - LINUS (continuity VTI) 1.6 cm2 - Name Value Normal Range TR Vmax 2.5 m/sec - TR peak gradient 25 mmHg - RAP 3 mmHg - RVSP 28 mmHg - IVC diameter 1.2 cm - Name Value Normal Range PV Vmax 0.9 m/sec - PV peak gradient 4 mmHg -
[2016-09-01 11:41] VITALS: BP 133/56
--- NOTE | 2016-09-04 11:41 | DS ---
DISCHARGE SUMMARY: DATE OF ADMISSION: 08/31/16 DATE OF DISCHARGE: 09/01/16 PROVIDER: Khloe Crews NP. ATTENDING PHYSICIAN: Dr. Cassidy Moeller *(as dictated by Khloe Crews NP). PRIMARY CARE PHYSICIAN: Dr. Jason Dominguez. PRIMARY DISCHARGE DIAGNOSIS: Dizziness. SECONDARY DISCHARGE DIAGNOSES: 1. Coronary artery disease, status post balloon angioplasty. 2. Hypertension. 3. Hyperlipidemia. 4. Hypothyroidism. 5. 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 6. Anxiety. 7. Depression. 8. Obstructive sleep apnea, compliant with CPAP. MEDICATIONS AT DISCHARGE: 1. Vitamin D 1000 mg daily. 2. Adderall XR 15 mg daily. 3. Plavix 75 mg daily. 4. Atenolol 25 mg daily. 5. Aspirin 81 mg daily. 6. Ferrous sulfate 325 mg Tuesdays and . 7. Levothyroxine 150 mcg daily. 8. Lorazepam 0.5 mg daily p.r.n. 9. Trazodone 50 to 100 mg at bedtime p.r.n. 10. Tamsulosin 0.4 mg q.p.m. 11. Lisinopril 5 mg daily. 12. Finasteride 5 mg q.p.m. HOSPITAL TESTING DURING THIS ADMISSION: CT of the brain from 08/31/16, impression: Proximal vessel ischemic changes with stable right-sided encephalomalacia consistent with remote infarct. No acute intracranial pathology. MRI of the brain from 08/31/16, impression: 1. Findings suggestive of remote watershed infarct on the right. 2. Chronic small vessel ischemic changes. 3. Innumerable foci of susceptibility artifact suggestive of chronic hemorrhage in the setting of untreated hypertension, though amyloid angiopathy is also in the differential. 4. There is no restricted diffusion to suggest acute infarct. Transthoracic echocardiogram from 09/01/16, conclusions: The left ventricular chamber size is normal. Mild concentric left ventricular hypertrophy is observed. There is normal left ventricular systolic function. The estimated ejection fraction is 55% to 60%. Abnormal left ventricular diastolic filling is observed, consistent with impaired relaxation. The left ventricular diastolic filling pattern is consistent with elevated left ventricular end- diastolic pressure. The left atrium is mildly dilated. There is mild aortic regurgitation. There is mild aortic stenosis. There is mild mitral regurgitation. There is mild tricuspid regurgitation. No pulmonary hypertension is noted. HOSPITAL COURSE OF STAY: For full details, please refer to the H and P provided by Percy CABRERA. In summary, Mr. Black is an 81-year-old gentleman who presented to the ER with prolonged dizziness. He states that he does have dizziness most mornings that lasts for a couple of minutes, but on the morning of 08/31/16, he was dizzy for several hours and became concerned about having a new stroke. He was brought in to the emergency department by EMS. He denies any loss of consciousness or falls. He also reported some left foot numbness that persisted through his ER visit but eventually resolved. He denies any other symptoms such as confusion, changes of speech, headache, blurred vision or double vision. The patient did notably have carotid imaging done 6 months prior in March 2016, which demonstrated prior right carotid endarterectomy but no significant stenosis and less than 50% left internal carotid stenosis. CT of the brain and MRI were negative as previously mentioned. His echocardiogram did not show any change to the severity of his aortic stenosis. The patient did stay overnight and woke up the next morning and denied having dizziness. He was seen by his primary care provider. In the discussion between Dr. Dominguez and the patient, it was mentioned by the patient that he does indeed have dizziness most mornings, but he was concerned for a new stroke given the severity of his dizziness. He now denies any OCAMPO, weakness, or dizziness or other concerning symptoms. He was able to demonstrate safe ambulation here in the hospital and as his TIA and CVA workup was negative, we discussed having a followup with his PCP in the outpatient setting. We also did discuss his current medication regimen, which includes Adderall. He states that he has been on this medication for a while and that he had dizziness prior to the start of this medication and that did not change or worsen with the initiation of the Adderall. Additionally, he states that this medication is very important in controlling his depression. Mr. Black has no acute complaints prior to discharge. He elected to further discuss his medication regimen in the outpatient with his PCP and Dr. Aparicio who treats him for his depression and anxiety. No other acute concerns. CONCERNS AT DISCHARGE: Mr. Black will be discharged to home on 09/01/16 with outpatient follow-up. DIET: Heart healthy diet. ACTIVITY: As tolerated. CONDITION: Stable. DISPOSITION: To home. TIME SPENT: Time spent on this discharge was approximately 40 minutes. Again, this is a brief summary of the patient's hospital course of stay. For full details, please refer to the full medical record. If you have any questions or need further assistance, please feel free to contact me at . KHLOE CREWS NP CC: Dr. Jason Dominguez * [id number]/CPS #: [id number] MTDD
== END 2016-09-01 13:46 | disposition home or self-care (01) ==
LOC: ED 12:20 → MEDTELE 15:18
PROVIDERS: ADMIT Internal Medicine; ATTEND Hospitalist
DX: R42 Dizziness and giddiness (principal); I25.10 Atherosclerotic heart disease of native coronary artery without angina pectoris; Z95.5 Presence of coronary angioplasty implant and graft; I10 Essential (primary) hypertension; E78.5 Hyperlipidemia, unspecified; E03.9 Hypothyroidism, unspecified; I69.351 Hemiplegia and hemiparesis following cerebral infarction affecting right dominant side; F32.9 Major depressive disorder, single episode, unspecified; F41.9 Anxiety disorder, unspecified; G47.33 Obstructive sleep apnea (adult) (pediatric); R00.1 Bradycardia, unspecified; I51.7 Cardiomegaly; I35.0 Nonrheumatic aortic (valve) stenosis; Z79.82 Long term (current) use of aspirin; Z79.899 Other long term (current) drug therapy; Z79.02 Long term (current) use of antithrombotics/antiplatelets; Z88.5 Allergy status to narcotic agent; Z87.891 Personal history of nicotine dependence
CPT/HCPCS: 36415; 70450; 70551; 80048; 80053; 81003; 83605; 83735; 84443; 84484; 85025; 93005; 93306; 96372; 99284; A9270-GY; G0378; G8978-GP-CI; G8979-GP-CI; G8980-GP-CI; J1650

== ENCOUNTER 2016-12-22 18:17 | Emergency (ER) | payer MEDICARE ==
[2016-12-22] MEDS ORDERED: Tetan/Diph/Pertus SYR(Tdap)* 0.5 ML SYR(BOOSTRIX) use SYR IM ONE (20:56)
--- NOTE | 2016-12-22 21:14 | ED ---
Skin Complaint - HPI Summary HPI Summary: Rt hand dominant pt here w/ Lt pinky injury - cut lateral aspect of finger while using a log splitter. Denies pain, numbness, tingling, weakness - some deformity. Bleeding controlled with pressure. Mild deformity. Pt does take clopidrogel and ASA daily. Unsure if imms are UTD - open to boostrix today. - History of Current Complaint Chief Complaint: EDLacSutureRecheck Time Seen by Provider: 12/22/16 20:37 Stated Complaint: FINGER LAC FROM WOOD SPLITTER Hx Obtained From: Patient, Family/Clinical Pharmacologist - Pain Intensity: 0 - Allergy/Home Medications Allergies/Adverse Reactions: Allergies Allergy/AdvReac Type Severity Reaction Status Date / Time Morphine AdvReac Hallucinati Verified 09/19/16 12:46 ons PMH/Surg Hx/FS Hx/Imm Hx Previously Healthy: Yes Endocrine/Hematology History: Reports: Hx Anticoagulant Therapy - plavix and ASA , Hx Thyroid Disease, Hx Anemia - SLIGHT Denies: Hx Diabetes Cardiovascular History: Reports: Hx Angina, Hx Coronary Artery Disease, Hx Hypercholesterolemia, Hx Hypertension, Hx Myocardial Infarction Denies: Hx Congestive Heart Failure, Hx Pacemaker/ICD, Other Cardiovascular Problems/Disorders Respiratory History: Reports: Hx Sleep Apnea - has CPAP Denies: Hx Asthma, Hx Chronic Obstructive Pulmonary Disease (COPD), Other Respiratory Problems/Disorders GI History: Reports: Hx Gastroesophageal Reflux Disease, Hx Ulcer - Gastric, Other GI Disorders - ? gerd History: Reports: Other Problems/Disorders - ENLARGE PROSTATE Denies: Hx Renal Disease Musculoskeletal History: Reports: Hx Arthritis - LEFT KNEE, Hx Osteoporosis - LEFT KNEE, Other Musculoskeletal History - knee surgery Sensory History: Reports: Hx Cataracts, Hx Contacts or Glasses, Hx Hearing Aid, Other Sensory Impairments - left visual cut after CVA Opthamlomology History: Reports: Hx Cataracts, Hx Contacts or Glasses, Other Sensory Impairments - left visual cut after CVA Neurological History: Reports: Other Neuro Impairments/Disorders - CVA Denies: Hx Dementia, Hx Seizures Psychiatric History: Reports: Hx Anxiety - ONCE IN A WHILE Denies: Hx Panic Disorder, Hx Substance Abuse - Surgical History Surgery Procedure, Year, and Place: Coronary Angioplasty; Cataract Surgery; Right Bunionectomy; Right Knee Arthroscopy; Right Shoulder Surgery; Partial Thyroidectomy; Colonoscopy with Exc. of Polyps 2011, Knee surgery, 2015- right endarderectomy Hx Anesthesia Reactions: No Infectious Disease History: No Infectious Disease History: Reports: Hx Shingles - 2003 Denies: Hx Hepatitis, Hx Human Immunodeficiency Virus (HIV), Traveled Outside the [place] in Last 30 Days - Family History Known Family History: Positive: Cardiac Disease - Social History Occupation: Retired Lives: With Family Alcohol Use: None Hx Substance Use: No Substance Use Type: Reports: None Hx Tobacco Use: Yes Smoking Status (MU): Former Smoker Type: Cigarettes Amount Used/How Often: 3 packs a day 39 years ago Have You Smoked in the Last Year: No Review of Systems Constitutional: Negative Positive: no symptoms reported Musculoskeletal: Negative Skin: Other - see HPI Neurological: Negative Psychological: Normal All Other Systems Reviewed And Are Negative: Yes Physical Exam Triage Information Reviewed: Yes Vital Signs On Initial Exam: Initial Vitals Temp Pulse Resp BP Pulse Ox 98.8 F 72 18 149/85 98 12/22/16 18:49 12/22/16 18:49 12/22/16 18:49 12/22/16 18:49 12/22/16 18:49 Vital Signs Reviewed: Yes Appearance: Positive: Well-Appearing, No Pain Distress, Well-Nourished Skin: Positive: Warm - linear laceration over lateral aspect of Lt pinky finger - bleeding controlled Cardiovascular: Positive: Pulses are Symmetrical in both Upper and Lower Extremities Musculoskeletal: Positive: Abnormal @ - Lt pinky w/ mild deformity and ecchymosis along palmar aspect of PIP joint. Negative: Pain @ Neurological: Positive: Sensory/Motor Intact, Alert, Oriented to Person Place, Time Psychiatric: Positive: Normal Procedures - Splinting Pre-Made Type: metal - finger splint Pre-Proc Neuro Vasc Exam: normal Post-Proc Neuro Vasc Exam: normal - Laceration/Wound Repair 1 Location: upper extremity - Lt pinky - vessels and nerves observed - possible sheath injury Description: Linear Anesthesia: Digital, Lido Length, Depth and Shape: 3cm x 3mm Betadine Prep?: Yes Irrigated w/ Saline (ccs): 100 - sterile saline Laceration/Wound Explored: clean Closure: Single Layer Suture Type: Prolene - 5-0 Number of Sutures: 3 Layer Closure?: No Sterile Dressing Applied?: Yes - xerform + gauze + coban Diagnostics - Vital Signs Vital Signs Temp Pulse Resp BP Pulse Ox 12/22/16 20:25 98.8 F 72 18 149/85 98 12/22/16 18:49 98.8 F 72 18 149/85 98 - Laboratory Lab Statement: Any lab studies that have been ordered have been reviewed, and results considered in the medical decision making process. Course/Dx - Diagnoses Provider Diagnoses: Open fracture of phalanx of finger of left hand, Laceration of finger, left Discharge - Discharge Plan Condition: Stable Disposition: HOME Prescriptions: Cephalexin CAP* [Keflex CAP*] 500 mg PO QID #38 cap Patient Education Materials: Care For Your Stitches (ED), Splint Care (ED), Finger Laceration (ED), Finger Fracture (ED) Referrals: Chriss Romero MD [Primary Care Provider] - Additional Instructions: Keep dressing clean, dry and intact until seen by hand specialist for wound check and suture removal. Dr. Harvey's office will call you in the next few days with details about follow-up care. Rest, ice, elevate for pain, swelling. Complete antibiotics as directed. You may take tylenol for pain - 650mg every 6 hours as needed. *If you develop swelling, redness, streaking, purulent drainage, fever, chills, seek medical attention sooner
--- NOTE | 2016-12-22 21:40 | RAD ---
HISTORY: Left fifth finger laceration COMPARISONS: None relevant VIEWS: 3, Frontal, lateral, and oblique views of the fifth digit of the left hand FINDINGS: BONE DENSITY: Normal. BONES: There is a transverse fracture with dorsal angulation of the middle phalanx of the fifth digit. There is no significant displacement. JOINTS: There is no arthropathy. ALIGNMENT: There is no dislocation. SOFT TISSUES: There is a punctate radiopaque foreign body in the soft tissues along the volar and ulnar (medial) aspect of the distal phalanx OTHER FINDINGS: None IMPRESSION: 1. TRANSVERSING ANGULATED FRACTURE OF THE MIDDLE PHALANX THE FIFTH DIGIT. 2. SMALL RADIOPAQUE FOREIGN BODY IN THE SOFT TISSUES ALONG THE DISTAL PHALANX
[2016-12-22] MEDS ORDERED: Cephalexin CAP* 500 MG PO ONE (21:58)
[2016-12-23] MEDS ORDERED: Cephalexin CAP* 500 MG ONE (01:36)
[2016-12-23 01:50] VITALS: BP 162/69
== END 2016-12-23 01:49 | disposition home or self-care (01) ==
LOC: ED 18:17
DX: S62.617B Displaced fracture of proximal phalanx of left little finger, initial encounter for open fracture (principal); Z87.891 Personal history of nicotine dependence; W31.89XA Contact with other specified machinery, initial encounter; Y92.9 Unspecified place or not applicable; Z79.82 Long term (current) use of aspirin; Z79.02 Long term (current) use of antithrombotics/antiplatelets; I25.10 Atherosclerotic heart disease of native coronary artery without angina pectoris; E78.00 Pure hypercholesterolemia, unspecified; G47.30 Sleep apnea, unspecified
CPT/HCPCS: 29130; 73140; 90471; 90715; 96360; 99282; A9270-GY; J0690

== ENCOUNTER 2017-01-25 08:43 | Observation (INO) | payer MEDICARE ==
[2017-01-25] MEDS ORDERED: NS 0.9% 1000 ML* 1,000 ML IV ONE (08:54)
[2017-01-25 09:13] LABS: Hematocrit 40 % (42-52); Hemoglobin 13.5 g/dl (14.0-18.0); Mean Corpuscular HGB Conc 34 g/dl (31-36); Mean Corpuscular Hemoglobin 30 pg (27-31); Mean Corpuscular Volume 89 fL (80-94); Mean Platelet Volume 8 um3 (7.4-10.4); Red Blood Count 4.46 10^6/ul (4.0-5.4); Red Cell Distribution Width 14 % (10.5-15); White Blood Count 6.7 10^3/ul (3.5-10.8)
[2017-01-25 09:29] LABS: Albumin 3.8 g/dL (3.2-5.2); BUN/Creatinine Ratio 13.6 (8-20); Calcium 8.7 mg/dL (8.6-10.3); EGFR African American 107.2 (>60); EGFR Non-African American 83.3 (>60); Globulin 3.1 g/dL (2-4); Potassium 3.4 mmol/L (3.5-5.0); Total Bilirubin 0.4 mg/dL (0.2-1.0); Total Protein 6.9 g/dL (6.4-8.9)
--- NOTE | 2017-01-25 09:34 | RAD ---
INDICATION: 81-year-old with visual changes COMPARISON: CT brain August 31, 2016; MRI brain August 31, 2016 TECHNIQUE: Noncontrast axial source images were acquired from the skull base to the vertex. FINDINGS: Ventricles/sulci: There is cortical atrophy with compensatory dilatation of the CSF spaces. Brain parenchyma: There is periventricular and subcortical white matter change compatible with chronic ischemia. There is an old watershed type infarct in the right parietal occipital region, unchanged. Intracranial hemorrhage:None. Extra-axial spaces: There are no abnormal extra axial fluid collections or evidence of extra-axial mass. Calvarium: There is no calvarial fracture or other calvarial abnormality. Scalp: There is no evidence of scalp or extracalvarial soft tissue abnormality. Paranasal sinuses/mastoid: The paranasal sinuses and mastoid air cells are clear. Other: None. IMPRESSION: Cortical atrophy with chronic ischemic changes.
[2017-01-25] MEDS ORDERED: Iohexol 350* (CONTRAST) 500 ML MDV IV ONE (10:45)
[2017-01-25 11:21] LABS: Urine Bilirubin Negative (Negative); Urine Glucose 1+(50 mg/dL) (Negative); Urine Nitrite Negative (Negative)
[2017-01-25] MEDS ORDERED: Ondansetron INJ* 2 MG/ML VIAL IV PRN (11:24)
[2017-01-25] MEDS ORDERED: Acetaminophen TAB* 325 MG PO PRN (11:24)
[2017-01-25] MEDS ORDERED: LORazepam TAB(*) 0.5 MG PO PRN (11:26)
[2017-01-25] MEDS ORDERED: traZODone TAB* 50 MG TAB PO PRN (11:28)
[2017-01-25] MEDS ORDERED: Potassium Chlor TAB* 10 MEQ TAB.ER PO ONE (11:38)
--- NOTE | 2017-01-25 11:57 | ED ---
Phillip Null Angela, scribed for Yakov Holcomb MD on 01/25/17 at 0855 . Throat Pain/Nasal Congestion - HPI Summary HPI Summary: This pt is an 81 y/o male BIBA presenting to [facility] c/o left eye blurry vision and numbness of left index and thumb fingers since today at 6:00 AM. Pt reports he had a previous strokes in 2011 and October 2014, resulting in left sided deficits including visual problems (left neglect). Pt notes that since his last stroke in 2014, he was able to get his vision back and drive again. He states that over this past week he feels like there is "dirt" in his left eye. He endorses blurry vision with his left eye. Pt denies chest pain, SOB, palpitations, lower extremity weakness and numbness. - History of Current Complaint Hx Obtained From: Patient Onset/Duration: Lasting Hours Associated Signs And Symptoms: Positive: FB Sensation - left eye - Allergies/Home Medications Allergies/Adverse Reactions: Allergies Allergy/AdvReac Type Severity Reaction Status Date / Time Morphine AdvReac Hallucinati Verified 09/19/16 12:46 ons Home Medications: Home Medications Bupropion XL* [Wellbutrin XL *] 150 mg PO DAILY 01/25/17 [History Confirmed ] Cyanocobalamin TAB* [Vitamin B12 TAB*] 1 tab PO SEE INSTRUCTIONS 01/25/17 [ History Confirmed 01/25/17] PMH/Surg Hx/FS Hx/Imm Hx Endocrine/Hematology History: Reports: Hx Anticoagulant Therapy - plavix and ASA , Hx Thyroid Disease, Hx Anemia - SLIGHT Denies: Hx Diabetes Cardiovascular History: Reports: Hx Angina, Hx Coronary Artery Disease, Hx Hypercholesterolemia, Hx Hypertension, Hx Myocardial Infarction Denies: Hx Congestive Heart Failure, Hx Pacemaker/ICD, Other Cardiovascular Problems/Disorders Respiratory History: Reports: Hx Sleep Apnea - has CPAP Denies: Hx Asthma, Hx Chronic Obstructive Pulmonary Disease (COPD), Other Respiratory Problems/Disorders GI History: Reports: Hx Gastroesophageal Reflux Disease, Hx Ulcer - Gastric, Other GI Disorders - ? gerd History: Reports: Other Problems/Disorders - ENLARGE PROSTATE Denies: Hx Renal Disease Musculoskeletal History: Reports: Hx Arthritis - LEFT KNEE, Hx Osteoporosis - LEFT KNEE, Other Musculoskeletal History - knee surgery Sensory History: Reports: Hx Cataracts, Hx Contacts or Glasses, Hx Hearing Aid, Other Sensory Impairments - left visual cut after CVA Opthamlomology History: Reports: Hx Cataracts, Hx Contacts or Glasses, Other Sensory Impairments - left visual cut after CVA Neurological History: Reports: Other Neuro Impairments/Disorders - CVA Denies: Hx Dementia, Hx Seizures Psychiatric History: Reports: Hx Anxiety - ONCE IN A WHILE Denies: Hx Panic Disorder, Hx Substance Abuse - Surgical History Surgery Procedure, Year, and Place: Coronary Angioplasty; Cataract Surgery; Right Bunionectomy; Right Knee Arthroscopy; Right Shoulder Surgery; Partial Thyroidectomy; Colonoscopy with Exc. of Polyps 2011, Knee surgery, 2015- right endarderectomy Hx Anesthesia Reactions: No Infectious Disease History: Reports: Hx Shingles - 2002 Denies: Hx Hepatitis, Hx Human Immunodeficiency Virus (HIV) - Family History Known Family History: Positive: Cardiac Disease - Social History Alcohol Use: None Hx Substance Use: No Substance Use Type: Reports: None Hx Tobacco Use: Yes Smoking Status (MU): Former Smoker Type: Cigarettes Amount Used/How Often: 3 packs a day 39 years ago Have You Smoked in the Last Year: No Review of Systems Negative: Fever, Chills Positive: Blurred Vision, Other - Left eye discomfort Negative: Palpitations, Chest Pain Negative: Shortness Of Breath Positive: Numbness - left index and thumb. Negative: Weakness All Other Systems Reviewed And Are Negative: Yes Physical Exam Triage Information Reviewed: Yes Vital Signs On Initial Exam: Initial Vitals Temp Pulse Resp BP Pulse Ox 98.6 F 57 14 125/66 96 01/25/17 08:53 01/25/17 08:53 01/25/17 08:53 01/25/17 08:53 01/25/17 08:53 Vital Signs Reviewed: Yes Appearance: Positive: Well-Appearing Skin: Positive: Warm, Skin Color Reflects Adequate Perfusion, Dry Head/Face: Positive: Normal Head/Face Inspection Eyes: Positive: Normal ENT: Positive: Normal ENT inspection Neck: Positive: Supple, Nontender Respiratory/Lung Sounds: Positive: Clear to Auscultation, Breath Sounds Present Cardiovascular: Positive: RRR Abdomen Description: Positive: Nontender, Soft Musculoskeletal: Positive: Normal Neurological: Positive: Normal, Sensory/Motor Intact, Alert, Oriented to Person Place, Time, CN Intact II-III, Other - left sided neglect Psychiatric: Positive: Normal, Affect/Mood Appropriate Diagnostics - Vital Signs Vital Signs Temp Pulse Resp BP Pulse Ox 01/25/17 11:53 97.9 F 81 16 160/56 99 01/25/17 11:00 53 13 132/61 97 01/25/17 10:30 60 16 158/66 98 01/25/17 10:00 50 11 140/59 94 01/25/17 09:30 52 16 136/61 97 01/25/17 09:27 53 15 120/50 98 01/25/17 09:11 54 13 97 01/25/17 08:53 98.6 F 57 14 125/66 96 - Laboratory Lab Results: Lab Results 01/25/17 01/25/17 01/25/17 Range/Units 09:00 09:00 09:00 WBC 6.7 (3.5-10.8) 10^3/ul RBC 4.46 (4.0-5.4) 10^6/ul Hgb 13.5 L (14.0-18.0) g/dl Hct 40 L (42-52) % MCV 89 (80-94) fL MCH 30 (27-31) pg MCHC 34 (31-36) g/dl RDW 14 (10.5-15) % Plt Count 168 (150-450) 10^3/ul MPV 8 (7.4-10.4) um3 Neut % (Auto) 72.3 (38-83) % Lymph % (Auto) 17.0 L (25-47) % Whiteside % (Auto) 8.6 (1-9) % Eos % (Auto) 1.5 (0-6) % Baso % (Auto) 0.6 (0-2) % Absolute Neuts (auto) 4.8 (1.5-7.7) 10^3/ul Absolute Lymphs (auto) 1.1 (1.0-4.8) 10^3/ul Absolute Monos (auto) 0.6 (0-0.8) 10^3/ul Absolute Eos (auto) 0.1 (0-0.6) 10^3/ul Absolute Basos (auto) 0 (0-0.2) 10^3/ul Absolute Nucleated RBC 0 10^3/ul Nucleated RBC % 0.1 INR (Anticoag Therapy) 0.93 (0.89-1.11) Sodium 140 (133-145) mmol/L Potassium 3.4 L (3.5-5.0) mmol/L Chloride 104 (101-111) mmol/L Carbon Dioxide 31 (22-32) mmol/L Anion Gap 5 (2-11) mmol/L BUN 12 (6-24) mg/dL Creatinine 0.88 (0.67-1.17) mg/dL Est GFR ( Amer) 107.2 (>60) Est GFR (Non-Af Amer) 83.3 (>60) BUN/Creatinine Ratio 13.6 (8-20) Glucose 127 H (70-100) mg/dL Lactic Acid (0.5-2.0) mmol/L Calcium 8.7 (8.6-10.3) mg/dL Total Bilirubin 0.40 (0.2-1.0) mg/dL AST 16 (13-39) U/L ALT 17 (7-52) U/L Alkaline Phosphatase 65 (34-104) U/L Troponin I 0.00 (<0.04) ng/mL Total Protein 6.9 (6.4-8.9) g/dL Albumin 3.8 (3.2-5.2) g/dL Globulin 3.1 (2-4) g/dL Albumin/Globulin Ratio 1.2 (1-3) Urine Color Urine Appearance Urine pH (5-9) Ur Specific [place] (1.010-1.030) Urine Protein (Negative) Urine Ketones (Negative) Urine Blood (Negative) Urine Nitrate (Negative) Urine Bilirubin (Negative) Urine Urobilinogen (Negative) Ur Leukocyte Esterase (Negative) Urine Glucose (Negative) 01/25/17 01/25/17 Range/Units 09:00 10:59 WBC (3.5-10.8) 10^3/ul RBC (4.0-5.4) 10^6/ul Hgb (14.0-18.0) g/dl Hct (42-52) % MCV (80-94) fL MCH (27-31) pg MCHC (31-36) g/dl RDW (10.5-15) % Plt Count (150-450) 10^3/ul MPV (7.4-10.4) um3 Neut % (Auto) (38-83) % Lymph % (Auto) (25-47) % Whiteside % (Auto) (1-9) % Eos % (Auto) (0-6) % Baso % (Auto) (0-2) % Absolute Neuts (auto) (1.5-7.7) 10^3/ul Absolute Lymphs (auto) (1.0-4.8) 10^3/ul Absolute Monos (auto) (0-0.8) 10^3/ul Absolute Eos (auto) (0-0.6) 10^3/ul Absolute Basos (auto) (0-0.2) 10^3/ul Absolute Nucleated RBC 10^3/ul Nucleated RBC % INR (Anticoag Therapy) (0.89-1.11) Sodium (133-145) mmol/L Potassium (3.5-5.0) mmol/L Chloride (101-111) mmol/L Carbon Dioxide (22-32) mmol/L Anion Gap (2-11) mmol/L BUN (6-24) mg/dL Creatinine (0.67-1.17) mg/dL Est GFR ( Amer) (>60) Est GFR (Non-Af Amer) (>60) BUN/Creatinine Ratio (8-20) Glucose (70-100) mg/dL Lactic Acid 1.8 (0.5-2.0) mmol/L Calcium (8.6-10.3) mg/dL Total Bilirubin (0.2-1.0) mg/dL AST (13-39) U/L ALT (7-52) U/L Alkaline Phosphatase (34-104) U/L Troponin I (<0.04) ng/mL Total Protein (6.4-8.9) g/dL Albumin (3.2-5.2) g/dL Globulin (2-4) g/dL Albumin/Globulin Ratio (1-3) Urine Color Yellow Urine Appearance Clear Urine pH 6.0 (5-9) Ur Specific [place] 1.011 (1.010-1.030) Urine Protein Negative (Negative) Urine Ketones Negative (Negative) Urine Blood Negative (Negative) Urine Nitrate Negative (Negative) Urine Bilirubin Negative (Negative) Urine Urobilinogen Negative (Negative) Ur Leukocyte Esterase Negative (Negative) Urine Glucose 1+(50 mg/dl) H (Negative) Result Diagrams: 01/25/17 09:00 08/24/17 09:00 Lab Statement: Any lab studies that have been ordered have been reviewed, and results considered in the medical decision making process. - CT Brain CT CT Interpretation: Positive (See Comments) - IMPRESSION: Cortical atrophy with chronic ischemic changes. ED physician has reviewed this radiology report and agrees. CT Interpretation Completed By: Radiologist - EKG 9:07 Cardiac Rate: Bradycardia - 54 bpm EKG Rhythm: Sinus Rhythm EENT Course/Dx - Course Course Of Treatment: It's unclear whether this represents another CVA, focal seizure activity or just dehydration and exhaustion. He is being admitted to the hospitalist service and has been seen by Dr. Coleman. - Diagnoses Provider Diagnoses: CVA (cerebral vascular accident) - Provider Notifications Discussed Care Of Patient With: Dr. Coleman Time Discussed With Above Provider: 08:52 Instructed by Provider To: Other - Discussed the pt's case with Dr. Coleman ( neurologist). He will come to the ED to see the pt. 10:13 AM - Discussed care of pt with Dr. Sousa, hospitalist. She has agreed to admit the pt. Discharge - Discharge Plan Condition: Stable Disposition: ADMITTED TO [facility] Referrals: Chriss Romero MD [Primary Care Provider] - NIH Scale - NIH Scale NIH Stroke Scale Comment: NIH Stroke Scale = 1. There is left hemineglect. The documentation as recorded by the Phillip chambers Angela accurately reflects the service I personally performed and the decisions made by me, Yakov Holcomb MD.
[2017-01-25 12:03] LABS: TSH (Thyroid Stimulating Horm) 0.49 mcIU/mL (0.34-5.60)
[2017-01-25 12:09] LABS: Free T4 0.98 ng/dL (0.61-1.12)
[2017-01-25 12:15] LABS: Folate > 20.00 ng/mL (>3.99)
[2017-01-25 12:17] LABS: Vitamin B12 301 pg/mL (180-914)
[2017-01-25] MEDS: Heparin VIAL(*) 5000 UNITS/ML VIAL (FIVE THOUSAND) SUBCUT SCH ×2 (12:32→21:20)
--- NOTE | 2017-01-25 12:32 | RAD ---
INDICATION: New LEFT side deficits. Previous strokes. History of RIGHT carotid endarterectomy. COMPARISON: Noncontrast CT head of the same date and October 10, 2014 CT angiogram. TECHNIQUE: Multidetector CT images were obtained from the aortic arch to the vertex of the head with 80 mL Omnipaque 350 IV contrast. Arterial phase of enhancement. Multiplanar reformation including maximum intensity projection. 3-D arterial volume rendering. Stenosis estimations based on denominator of distal arterial diameter. NECK ANGIOGRAM REPORT: Normal variant common origin of the RIGHT brachiocephalic and LEFT common carotid arteries from the aortic arch. Mild atherosclerotic plaque without significant ostial stenosis. Mild circumferential noncalcified plaque at the RIGHT carotid bulb and proximal internal carotid artery with approximate 20% stenosis resulting markedly improved from the exam prior to the RIGHT carotid endarterectomy. Tortuous LEFT common carotid artery. Moderate predominant calcific plaque at the LEFT carotid bulb and proximal internal carotid artery with approximate 50% stenosis resulting without significant change. Significant calcific plaque at the ostia of the bilateral vertebral arteries limiting assessment with high-grade stenosis not excluded. Both vertebral arteries demonstrate normal opacification distal to the ostia and contribute to the basilar artery. Diffuse advanced cervical spine degenerative spondylosis and facet joint osteoarthritis. NECK ANGIOGRAM IMPRESSION: 1. Negative for significant restenosis of the post endarterectomy RIGHT internal carotid artery. 2. Approximate 50% stenosis of the LEFT proximal internal carotid artery without significant change. 3. Significant calcific plaque at the ostia of the bilateral vertebral arteries limiting assessment with high-grade stenosis not excluded. Both vertebral arteries demonstrate normal opacification distal to the ostia and contribute to the basilar artery. HEAD ANGIOGRAM REPORT: Increased noncalcific plaque at the RIGHT internal carotid artery at the carotid canal with approximate 50% stenosis resulting with significant progression compared with the 2015 exam. Less marked noncalcific plaque at the LEFT internal carotid artery at the carotid canal without hemodynamic significant stenosis resulting. Calcific plaque at the carotid siphons without suggestion of hemodynamic significant stenosis. Unremarkable M1 and M2 segments of the middle cerebral arteries and A1 and A2 segments of the anterior cerebral arteries. No anterior communicating artery visualized. Unremarkable vertebral artery and cerebellar artery origins. Patent LEFT posterior cerebral artery is supplied by the posterior circulation with normal variant hypoplastic posterior indicating artery. Patent LEFT posterior cerebral artery is supplied primarily by the anterior circulation with variant hypoplastic P1 segment. No intracranial aneurysm, vascular malformation, or abnormal focus of arterial phase enhancement evident. Normal opacification of the dominant dural venous sinuses. HEAD ANGIOGRAM IMPRESSION: 1. Increased noncalcific plaque at the RIGHT internal carotid artery at the carotid canal with approximate 50% stenosis resulting with significant progression compared with the 2015 exam. Less marked noncalcific plaque at the LEFT internal carotid artery at the carotid canal without hemodynamic significant stenosis resulting. 2. No central large vessel intracranial arterial occlusion or high-grade stenosis evident. CPT II: CPT II Codes: 3100F
--- NOTE | 2017-01-25 13:07 | CONS ---
DATE OF CONSULTATION: 01/25/2017. Patient is currently in the ED, being admitted. REASON FOR CONSULT: Left eye blurriness and left second finger numbness. HISTORY OF PRESENT ILLNESS: Mr. Black is a right-handed, 82-year-old gentleman who is very pleasant. He reports a history of heart attack in the past. He also reports a history of several strokes, one he states in 2011, another one in 2014. I did review the notes at that time. At that time, he presented with what appears to be some left-sided weakness and possible hemineglect on that side. He notes that he had residual left hand weakness, states that he could not use his hand at all. He subsequently had physical therapy and has improved dramatically. He notes some residual clumsiness on the left side at times. He was noted at that time to have some carotid stenosis on the right side. He also notes a previous stroke in 2011 with weakness on the right side. It is unclear how much weakness was a residual, but he was subsequently transferred to [facility] where he underwent carotid endarterectomy. 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 He is on an aspirin, statin and blood pressure medications at home. About two weeks ago, the patient notes that he developed some blurriness in his left eye. He states that he closed his right eye and had blurriness and he closed his left eye and could see clearly. He did not do anything about it. At one point, he was chopping wood and he hit his finger. He thought it might be because of his vision, but this blurriness continued and has not resolved. Otherwise, he feels that he was in his usual state of health. He notes some balance issues at baseline. He did not sleep well last night, but this morning woke up at 5 to 5:30 and noticed that his left index finger from the knuckle down was numb. Based on the vision changes and the numbness in his left index finger, he came to the ER for further evaluation. He has since had a brain CT which I reviewed. I see no evidence of acute bleeding. There is atrophy noted. There is an area in the right parietal region that appears to be from a chronic right MCA stroke. He states that the symptoms have persisted, have not improved. He notes no focal weakness, other numbness or tingling. He notes no headache, speech changes, or swallowing difficulties. He has had the blurriness in his left eye which he states is unchanged. He notes no recent falls. His gait has been stable. He notes a history of left hemineglect, but states that that largely resolved and has not worsened in the last several weeks. PAST MEDICAL HISTORY: Hypertension, hyperlipidemia, hypothyroidism, GERD, prior MN and prior stroke times two, a history of severe depression on medication, obstructive sleep apnea, questionable mitral valve disorder is listed. PAST SURGICAL HISTORY: Thyroidectomy in 1980, left knee arthroscopy in 1980, right rotator cuff repair in 1990, the stroke noted in June 2011, transesophageal echocardiogram in 2011, left knee arthroplasty in 2011, left knee replacement 2012, left knee revision in 2012, heart cath in 2013 with two stents placed, angioplasty in 1992, colonoscopy in 2009 and 2011, right carotid endarterectomy in 2014. CURRENT MEDICATIONS AT HOME: 1. Atenolol 25 mg daily. 2. Bupropion XL 150 mg daily. 3. Clopidogrel 75 mg daily. 4. Levothyroxine 0.15 mg daily. 5. Lisinopril 5 mg daily. 6. Aspirin 325 daily. 7. Atorvastatin 80 mg at bedtime. 8. Lorazepam 0.5 mg prn. 9. Tamsulosin 0.4 mg daily. 10. Finasteride 5 mg daily. 11. Trazodone 50 mg two at bedtime. 12. Vitamin B12 50 mcg daily. ALLERGIES: MORPHINE FAMILY HISTORY: Noncontributory. SOCIAL HISTORY: Prior smoking, but quit many years ago. No significant alcohol use. 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 He is , he lives at home with his . REVIEW OF SYSTEMS: His review of system in 14 organ systems as above, otherwise negative. He denies any shortness of breath, dyspnea on exertion, chest pain, nausea, vomiting, diarrhea, constipation, dysuria, musculoskeletal aches or pains, recent falls. He has otherwise been in his usual state of health. PHYSICAL EXAM: General: He is a well-nourished, well-developed gentleman lying in his hospital bed. He is pleasant, well-dressed, well-groomed. His is at the bedside. Vital Signs: Blood pressure 136/61 to 140/59, heart rate 52, pulse 50, respiratory rate 11, O2 sat 94. HEENT: Normocephalic, atraumatic. Sclerae are anicteric. Mucus membranes are moist. Oropharynx is clear. Nares are patent. Neck: Supple. No thyromegaly, no carotid bruits, no meningismus. Chest: Clear to auscultation bilaterally. Cardiovascular: Regular rate and rhythm. Abdomen: Nontender, obese. Extremities: No clubbing , cyanosis or edema is appreciated. Neurologic: He is awake, alert and oriented times three. His speech is fluent. There is no dysarthria. Repetition is intact. Recall of recent and remote events are intact. His mood is euthymic. Cranial nerves II through XII. His pupils are equally round and reactive to light. Extraocular muscles are intact. Visual hayes: He has central and peripheral blurriness when he closes his right eye, but he is able to see and count fingers. He is light sensitive. He notes more of a generalized blurriness. His visual hayes are full. His extraocular muscles are intact. There is no diplopia. His facial sensation is intact and symmetric. He has left lower facial weakness. 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 Giles, who saw him in 2015, notes that he had a left lower facial droop. He has hearing aids, but is intact. His palate elevates symmetrically. Tongue is midline. Sternocleidomastoid and shoulder shrug are both normal. On motor exam, he spontaneously moves all extremities antigravity. He has good strength 5/5 throughout. There is no drift apparent in all four extremities. His tone and bulk are both normal. Specifically, he has no pronator drift on the left upper extremity. Sensation: He is intact to light touch, pinprick, vibration, proprioception on the right. He does have some loss of all modalities in the left second digit from the knuckle down, circumferential around the finger. There is some double extinction on the left. Otherwise, no significant neglect at this time. His DTR's were 1+ in the upper extremities, biceps, brachioradialis and triceps, 1+ in the patellae bilaterally, ankles were absent, downgoing Babinski's. Nmkobi-uj-dncy and rapid alternating movements were intact on the right, there is no tremor; on the left , he had some difficulty with gpxqbs-xr-fbtb, some pass pointing. Lnoj-ih-fwtz was normal on both sides. Gait was good arm swing, good stride. He had some minimal sway on Romberg with eyes closed. DIAGNOSTIC STUDIES/LAB DATA: CBC with diff: Hemoglobin 13.5, hematocrit 40. INR 0.93. His complete metabolic profile was significant for a potassium of 3.4 and a glucose of 127. CT scan as noted above. Finger x-ray of the left small finger was obtained, there is a fracture site since 01/03/2017, unchanged. ASSESSMENT AND PLAN: Mr. Black is an 81-year-old gentleman with significant cardiovascular risk factors, including a history of an MN reported in the past, a history of several strokes, one in 2011 and one in 2014 in which he large resolved, but has some issues with hemineglect on the left at times. He also has had a carotid endarterectomy on the right. He is on medications for hypertension and hyperlipidemia. He is on aspirin and Plavix. He presents to the hospital with a two week history of left eye blurriness which has not resolved, present when he closes his right eye, but not present in the right eye. He has full visual hayes. He also presents with a history of left index finger numbness from the knuckle down which started at approximately 5:30 or 6: 00 this morning. He came to the hospital for further evaluation. At this point, it is difficult to tease out whether this is unmasking of old symptoms versus a new stroke. When asked about his left lower facial droop, he could not remember, although Dr. Giles did mention this in 2015. Given his risk factors, I do think a full stroke work is appropriate. He will be admitted for an MRI, CTA of the head and neck, and transthoracic echocardiogram. I will check lab work. Will continue his aspirin and Plavix for now. Should his MRI show evidence of a new stroke, we will hold all blood pressure medications and allow for permissive hypertension. Continue his statin. He did present within the three hour window, but his symptoms started two weeks ago and I did not feel he was a TPA candidate. He has some blurriness in the left eye which certainly could represent left retinal artery stroke. He will need to see Ophthalmology at some point, although I do not think this is acute. I will continue to follow him closely and make further recommendations as necessary. Thank you for the opportunity to participate in his care. [id number]/[facility] #: [id number] CARRIE
--- NOTE | 2017-01-25 14:21 | HP ---
ATTENDING'S ADDENDUM NOW INCLUDED ON THIS REPORT CC: Dr. Romero; Dr. Coleman. * HISTORY AND PHYSICAL: DATE OF ADMISSION: 01/25/17. PRIMARY CARE PROVIDER: Dr. Romero. ATTENDING PHYSICIAN WHILE IN THE HOSPITAL: Dr. Belen Sousa MD * (report dictated by Gerber Shaver NP) CONSULTING NEUROLOGIST: Dr. Coleman. CHIEF COMPLAINT: 1. Blurry vision. 2. Left index finger numbness. HISTORY OF PRESENT ILLNESS: Mr. Black is an 81-year-old male patient who has a history of CAD, hypertension, hyperlipidemia, hypothyroidism, CVA x2, anxiety, depression, PRAKASH and a history of AR. He comes into the ER today stating that last week or so, he has noticed that the he has been having blurry vision with worsening in his left eye. He says when he opens right eye and closes the left eye, he can see very well and if he has the right eye closed and looks through the left eye, he is having trouble. He says that he also has noticed that this morning, woke up around 5:30, he was starting to make his breakfast and then he noticed on his left pointer finger that he was having some numbness just from the tip of the knuckle. He went down, talked to his , there was concern because of his history of stroke and he came into the hospital. The patient denies having any chest pain, denies having any shortness of breath, denies having any abdominal pain. Denies any weakness to one side. He does deny having any trouble with speech and no other visual disturbances. Again, there was concern because of his history, he came into the ER, was evaluated and we were asked to evaluate for admission for possible stroke versus TIA. PAST MEDICAL HISTORY: Significant for: 1. CAD. 2. Hypertension. 3. Hyperlipidemia. 4. Hypothyroidism. 5. CVA x3. 6. Anxiety. 7. Depression. 8. PRAKASH. 9. History of AR. PAST SURGICAL HISTORY: 1. The patient has had a heart catheterization 2. Rotator cuff. 3. Carotid artery endarterectomy. 4. Left total knee replacement. 5. Left knee arthroscopy. 6. Cataracts. HOME MEDICATIONS: According to the list they provided includes: 1. Trazodone 50 to 100 mg at bedtime as needed. 2. Flomax 0.4 mg p.o. at bedtime. 3. Lisinopril 5 mg p.o. daily. 4. Synthroid 150 mcg daily. 5. Ativan 0.5 mg p.o. at bedtime as needed. 6. Proscar 5 mg daily. 7. B12 one tablet p.o. as directed. 8. Plavix 75 mg daily. 9. Wellbutrin 150 mg p.o. daily. 10. Lipitor 80 mg daily. 11. Atenolol 25 mg daily. 12. Aspirin 325 mg p.o. daily. ALLERGIES TO MEDICATION: Include MORPHINE. FAMILY HISTORY: Mother of old age. According to him, she at the age of 92 and the father had a history of cancer and he at age 88. SOCIAL HISTORY: He is a former smoker. He does not drink alcohol any more. Surrogate decision maker is his . REVIEW OF SYSTEMS: There is no documented fevers. He denied having any significant weight change. There was no double vision. There is no ear discharge. He denies having any rhinorrhea. No sore throat. No thyroid enlargement. He denied having any chest pain. There is no orthopnea. No nocturnal dyspnea. There is no abdominal pain. There is no nausea. There is no vomiting. No dysuria, no frequency. No seizure. There was no loss of consciousness. No pruritus and no skin ulceration. Review of 14 systems completed, all others negative. PHYSICAL EXAMINATION GENERAL: At this time, Mr. Black is an 81-year-old male patient. He appears to be well nourished, well developed. He is sitting in the ER stretcher. He does not appear to be in any acute distress. VITAL SIGNS: Blood pressure 132/61, pulse 53, respirations 13, O2 sat 97%, temperature 98.6. HEENT: Head is atraumatic, normocephalic. Eyes: EOMs are intact. Sclerae was anicteric. Throat: Oral mucosa appears to be moist. No oropharyngeal erythema. NECK: Supple. LUNGS: Clear to auscultation bilaterally. No wheezes, rales or rhonchi. HEART: Sounds S1 and S2. Regular rate and rhythm. No murmurs, rubs or gallops. ABDOMEN: Soft, flat. Nontender. Bowel sounds present. EXTREMITIES: Pulses were 2+ throughout. He is able to move all 4 extremities with 5/5 strength. No peripheral edema. NEUROLOGIC: He is awake, he is alert. Speech is clear. His tongue is midline. Actually his visual hayes are intact. His dress fitter are equal. Finger-to -nose intact bilaterally. Vtuu-or-djey intact bilaterally. He does have equal sensation in the lower extremities bilaterally. He had no gross obvious focal deficits. SKIN: Intact. LABORATORY DATA/IMAGING: Revealed a WBC of 6.7, RBC of 4.46, hemoglobin of 13.5, hematocrit of 40, platelet count of 158. INR 0.93. Sodium is 140, potassium is 3.4, chloride of 104, bicarb 31, BUN 12, creatinine 0.88, glucose 127, lactic 1.8, calcium 8.7. Total bili is 0.4, AST 16, ALT 17, alk phos is 55. Troponin 0. Albumin is 3.8. He did have a brain CT obtained today which revealed cortical atrophy with chronic ischemic changes. There was an EKG which showed sinus bradycardia rate of 54, no ST elevation or T -wave inversions. Reviewed the previous EKG, it is similar. Heart rate then was 59, it is today 54. Old medical records were reviewed. ASSESSMENT AND PLAN: Mr. Black is an 81-year-old male patient with multiple medical problems, coming into the ER today with complaints of his left pointer finger having some numbness. In addition, he is having a change in his vision. He will be admitted under observation status for: 1. Cerebrovascular accident versus transient ischemic attack. At this point, Dr. Coleman did evaluate the patient and felt that given his history of stroke and his symptoms now, it will be prudent to go ahead and check an MRI, get a CTA of the head and neck, echo, we will check a lipid panel in addition to A1c in the morning. He is on Plavix, aspirin, statin therapy for the time being. Because of concern for stroke, I am going allow for permissive hypertension. I will hold his atenolol and his lisinopril and will restart these if the MRI is negative and we will get neuro checks every 2 hours and we will continue to follow closely. We will place him on telemetry. 2. Coronary artery disease. He is on Plavix and aspirin, we will continue and a statin, holding the beta-marciano for the time being. 3. Hypertension. We will allow for permissive hypertension in the setting of CVA, holding lisinopril and atenolol. 4. Hyperlipidemia. Continue statin therapy. 5. Hypothyroidism. Continue his meds as prescribed. 6. History of anxiety and depression. Continue Wellbutrin. 7. Obstructive sleep apnea, CPAP has been ordered. 8. DVT prophylaxis. He is high risk. He will be placed on heparin subcutaneous. 9. Code status. He is actually DNR. 10. Fluids, nutrition. He can have a heart healthy diet and no caffeine. TIME SPENT: Time spent on the admission was approximately 60 minutes, greater than half the time was spent face to face with the patient obtaining my history and physical, the other half of the time was spent on going over the plan of care with the patient and implementing the place of care. I did discuss the plan of care with my attending Dr. Sousa, she is in agreement. GERBER SHAVER NP ADDENDUM: Mr. Black is an 81-year-old male, status post carotid endarterectomy and ischemic CVA in the past with residual left-sided hemineglect, who presented to the hospital complaining of some specific new finding including worsening vision on the left side as well as numbness in one of the fingers of the left hand. The patient was seen by Dr. Coleman from Neurology. He is going to be placed on observation for telemetry monitoring bed and further work up of the stroke. For further details for the patient's presentation and plan, please see the history and physical evaluated by Gerber Shaver on 01/25/17, with which I agree. BELEN SOUSA MD [id number]/[facility] #: [id number]/[facility] #: [id number] CARRIE
--- NOTE | 2017-01-25 16:01 | HP ---
*ADDENDUM: Mr. Black is an 81-year-old male, status post carotid endarterectomy and ischemic CVA in the past with residual left-sided hemineglect , who presented to the hospital complaining of some specific new finding including worsening vision on the left side as well as numbness in one of the fingers of the left hand. The patient was seen by Dr. Coleman from Neurology. He is going to be placed on observation for telemetry monitoring bed and further work up of the stroke. For further details for the patient's presentation and plan, please see the history and physical evaluated by Gerber Shaver on 01/25/17 , with which I agree. [id number]/[facility] #: [id number]
--- NOTE | 2017-01-25 17:28 | ECHO ---
Patient: HUMA BLUE [facility] Rec#: [id number] : 1935 Date: 01/25/2017 Age: 81y Height: 177.8 cm / 70.0 in Weight: 87.5 kg / 192.9 lbs Sex: M BSA: 2.06 Room#: 433 Admit Date#: 01/25/2017 Type: Inpatient Referring: Javon Coleman Reading: Harrison Schultz MD Cook Helper Meat: Merna Rodriguez RN RDCS CC: Chriss Romero MD Transthoracic Echocardiogram Indication: New CVA BP: 140/59 HR: 56 Rhythm: Bradycardia Findings History: CAD, PCI, HTN, HLD, CVA, PRAKASH Technical Comments: The study quality is fair. Completed at 1705. Left Ventricle: The left ventricular chamber size is normal. Mild to moderate concentric left ventricular hypertrophy is observed. There is a prominent septal knuckle. Global left ventricular wall motion and contractility are within normal limits. Left ventricular systolic function is at the lower limits of normal. The estimated ejection fraction is 50-55%. Abnormal left ventricular diastolic filling is observed, consistent with impaired relaxation. Left Atrium: The left atrium is moderately dilated. Right Ventricle: The right ventricular chamber size and systolic function are within normal limits. Right Atrium: The right atrium is mild to moderately dilated. Aortic Valve: The aortic valve is trileaflet. The aortic valve leaflets are moderately thickened. Systolic excursion of the aortic valve cusps is reduced. There is trace to mild aortic regurgitation. There is mild aortic stenosis. The mean gradient of the aortic valve is 11.3 mmHg. The peak instantaneous gradient of the aortic valve is 20.9 mmHg. The aortic valve area, by peak velocities, is calculated at 1.7 cm2. The aortic valve area, by VTI's, is calculated at 1.7 cm2. Mitral Valve: The mitral valve leaflets are mildly thickened. There is trace to mild mitral regurgitation. There is no evidence of mitral stenosis. Tricuspid Valve: The tricuspid valve leaflets are normal. There is trace to mild tricuspid regurgitation. There is evidence of borderline pulmonary hypertension. Pulmonic Valve: The pulmonic valve appears normal. There is a trace pulmonic regurgitation. There is no pulmonic stenosis. Pericardium: There is no significant pericardial effusion. A pericardial fat pad is visualized. Aorta: There is no dilatation of the ascending aorta. The aortic arch is not well visualized. The aortic root is normal in size. Pulmonary Artery: The main pulmonary artery appears normal. Venous: The venous system is not well visualized. Conclusions The left ventricular chamber size is normal. Mild to moderate concentric left ventricular hypertrophy is observed. There is a prominent septal knuckle. Global left ventricular wall motion and contractility are within normal limits. Left ventricular systolic function is at the lower limits of normal. The estimated ejection fraction is 50-55%. Abnormal left ventricular diastolic filling is observed, consistent with impaired relaxation. The left atrium is moderately dilated. The right atrium is mild to moderately dilated. There is trace to mild aortic regurgitation. There is mild aortic stenosis. The mean gradient of the aortic valve is 11.3 mmHg. The aortic valve area, by VTI's, is calculated at 1.7 cm2. There is trace to mild mitral regurgitation. There is trace to mild tricuspid regurgitation. Compared to the report of the study from 09/01/2016 there are no significant changes. The LV systolic function is mildly decreased (was reported as 55-60%. The degree of LV hypertrophy is mildly increased (was mild). The patient is noted to be in normal sinus rhythm. Measurements Name Value Normal Range RVDdMajor (2D) 3.6 cm (2.2 - 4.4) RAd ISD 4CH 5.1 cm (3.4 - 4.9) RA (A4C)W 5.7 cm (2.9 - 4.6) IVSd (2D) 1.4 cm (0.6 - 1) LVPWd (2D) 1.2 cm (0.6 - 1) LVIDd (2D) 4.8 cm (3.6 - 5.4) LVIDs (2D) 3.6 cm - LV FS (2D) 25 % (25 - 45) Aortic Annulus 2.1 cm (1.4 - 2.6) Ao root diameter (2D) 3.1 cm (2.1 - 3.5) Ascending Ao 3.1 cm (2.1 - 3.4) LA dimension (AP) 2D 4.6 cm (2.3 - 3.8) LAd ISD 4CH 6.8 cm (2.9 - 5.3) LA ISD 4CH W 4.8 cm (2.5 - 4.5) Aortic root diameter (2D1 cm/m2 - Name Value Normal Range LA ESV SP 4CH (A/L) 102 ml - LA ESV SP 2CH (A/L) 83 ml - LA ESV BP (A/L) 94 ml - LA ESV BP (A/L) index 46 ml/m2 - LA ESV SP 4CH (MOD) 98 ml - LA ESV SP 2CH (MOD) 78 ml - LV mass (2D) 244.55 g - LV mass (2D) index 118.71 g/m2 - Name Value Normal Range MV E-wave Vmax 0.88 m/sec - MV deceleration time 306 msec - MV A-wave Vmax 1.2 m/sec - MV E:A ratio 0.75 ratio - LV septal e' Vmax 0.06 m/sec - LV lateral e' Vmax 0.08 m/sec - LV E:e' septal ratio 14.7 ratio - LV E:e' lateral ratio 11 ratio - Name Value Normal Range AV Vmax 2.3 m/sec - AV VTI 53.5 cm - AV peak gradient 20.9 mmHg - AV mean gradient 11.3 mmHg - LVOT diameter 2.1 cm - LVOT Vmax 1.1 m/sec - LVOT VTI 26.5 cm - LVOT peak gradient 4.6 mmHg - LVOT mean gradient 2.6 mmHg - DOI (VTI) 0.5 ratio - DOI (Vmax) 0.48 ratio - SV LVOT 92 ml - CO LVOT 5.1 l/min - Cardiac index 2.5 l/min/m2 - LINUS (continuity Vmax) 1.7 cm2 - LINUS (continuity VTI) 1.7 cm2 - AR PHT 666 msec - Name Value Normal Range TR Vmax 2.6 m/sec - TR peak gradient 27 mmHg - RAP 8 mmHg - RVSP 35 mmHg - Name Value Normal Range PV Vmax 0.96 m/sec -
[2017-01-25] MEDS ORDERED: Atorvastatin* 80 MG TAB PO SCH (18:00)
[2017-01-25] MEDS ORDERED: Tamsulosin CAP* 0.4 MG PO SCH (18:00)
[2017-01-25] MEDS ORDERED: Finasteride TAB* 5 MG PO SCH (18:00)
--- NOTE | 2017-01-25 18:37 | RAD ---
HISTORY: Left hand numbness, new stroke COMPARISONS: August 31, 2016 TECHNIQUE: The following sequences were obtained of the head: Sagittal T1-weighted images, axial T2-weighted images, axial FLAIR images, axial susceptibility weighted images, axial T1-weighted images. Additionally, axial diffusion-weighted images were obtained with calculated apparent diffusion coefficients. FINDINGS: HEMORRHAGE/INFARCT: There is no acute hemorrhage or acute infarct. MASSES/SHIFT: There is no mass or shift. EXTRA-AXIAL SPACES/MENINGES: There are no extra-axial fluid collections. SULCI AND VENTRICLES: There is diffuse and proportional enlargement of the sulci and ventricles. CEREBRUM: Again noted is inseparable malacia consistent with a remote right cerebral infarct. There is diffuse multifocal elevated T2/flair signal in periventricular and subcortical white matter. Again noted are innumerable foci of susceptibility artifact consistent with chronic microhemorrhage, similar to the previous examination.. BRAINSTEM: There are no focal parenchymal abnormalities. CEREBELLUM: There are no focal parenchymal abnormalities. The cerebellar tonsils are normal in size and position. SELLA: The sella is normal. PINEAL: The pineal region is clear. CP ANGLE/TEMPORAL BONES: The labyrinthine structures are grossly normal. VESSELS: Normal flow-voids are noted within the visualized vertebral vasculature. DIFFUSION ABNORMALITIES: There are no diffusion abnormalities. PARANASAL SINUSES/MASTOIDS: The paranasal sinuses are clear. ORBITS: The orbits are unremarkable. BONES AND SOFT TISSUE: No bone or soft tissue abnormalities are noted. OTHER: None IMPRESSION: 1. NO RESTRICTED DIFFUSION TO SUGGEST ACUTE INFARCT. 2. DIFFUSE INVOLUTIONAL CHANGE 3. MULTIFOCAL REMOTE INFARCT. 4. CHRONIC SMALL VESSEL ISCHEMIC CHANGES. 5. AGAIN NOTED ARE INNUMERABLE CHRONIC MICROHEMORRHAGES, STABLE
[2017-01-26 05:53] LABS: Hematocrit 40 % (42-52); Hemoglobin 13.9 g/dl (14.0-18.0); Mean Corpuscular HGB Conc 35 g/dl (31-36); Mean Corpuscular Hemoglobin 31 pg (27-31); Mean Corpuscular Volume 88 fL (80-94); Mean Platelet Volume 8 um3 (7.4-10.4); Red Blood Count 4.55 10^6/ul (4.0-5.4); Red Cell Distribution Width 13 % (10.5-15); White Blood Count 6.1 10^3/ul (3.5-10.8)
[2017-01-26 06:10] LABS: HDL Cholesterol 40.6 mg/dL
[2017-01-26 06:11] LABS: BUN/Creatinine Ratio 16.9 (8-20); Calcium 8.9 mg/dL (8.6-10.3); EGFR African American 114.6 (>60); EGFR Non-African American 89.1 (>60); Potassium 3.6 mmol/L (3.5-5.0)
[2017-01-26] MEDS: Heparin VIAL(*) 5000 UNITS/ML VIAL (FIVE THOUSAND) SUBCUT SCH ×2 (06:25→12:52)
[2017-01-26] MEDS ORDERED: BuPROPion XL* 150 MG TAB.XL PO SCH (09:00)
[2017-01-26] MEDS ORDERED: Aspirin EC TAB* 325 MG PO SCH (09:00)
[2017-01-26] MEDS ORDERED: Clopidogrel TAB* 75 MG PO SCH (09:00)
[2017-01-26] MEDS ORDERED: Levothyroxine TAB* 150 MCG TAB PO SCH (09:00)
[2017-01-26 11:37] VITALS: BP 138/69
--- NOTE | 2017-01-27 04:54 | PN ---
PROGRESS NOTE: DATE OF PROGRESS NOTE: 01/26/17 LOCATION: He is currently in room 433, bed 1. SUBJECTIVE: He is an 81-year-old gentleman. Overnight, he has done very well. He has no further symptoms. He states that his vision is cleared and that his left index finger numbness has resolved. He currently has no symptoms and feels "great." OBJECTIVE: Vital Signs: Temp of 98.5, heart rate of 52 to 63, respiratory rate of 18, saturating 97%, blood pressure 145/62. Generally, his blood pressures have been running from the 120s to 140s over 50s to 60s. In general, he is a well- nourished, well-developed gentleman in no acute distress. He is normocephalic, Atraumatic. Sclerae are anicteric. Mucous membranes are moist. Neck is supple. Chest: Clear to auscultation bilaterally. Cardiovascular is regular rate and rhythm. Abdomen is nontender, nondistended. Extremities: No edema present. On neurologic exam, he is awake, alert and oriented x3. Speech is fluent. There is no dysarthria. Repetition is intact. Cranial nerves II through XII. His visual hayes are full and intact. He has no blurriness currently. His pupils are equally round and reactive to light. Extra-ocular muscles are intact. He has a left lower facial droop, which seems to have improved slightly. Face: Sensation is intact. Tongue is midline. Palate raises symmetrically. He is spontaneously moving all extremities antigravity. No drift is apparent and motor exam is symmetric bilaterally. Sensation is intact to light touch and pinprick throughout. No further numbness in his left index finger. Lonoyc-ju-otnw and rapid alternating movements are intact without tremor. DIAGNOSTIC STUDIES/LAB DATA: His lab work includes a hemoglobin of 13.9, hematocrit of 40. INR of 0.94. Basic metabolic panel today was normal except for a slightly elevated glucose of 108. Hemoglobin A1c is 6.5, calcium of 8.9. LDL cholesterol 77, vitamin B12 301, folate of greater than 20. TSH of 0.49, free T4 of 0.98. Studies include transthoracic echocardiogram, which shows left ventricular chamber size normal, [id number] concentric left ventricular hypertrophy observed, prominent septal knuckle, estimated ejection fraction 50% to 55%, abnormal left ventricular diastolic filling is observed consistent with impaired relaxation, mild- to-moderate dilatation of the atria, trace amount of regurg, trace mild aortic stenosis. Compared to prior report from 09/01/16, no significant changes. He had a CTA of the head and neck. The head angiogram report head and neck shows approximately 50% left stenosis at the proximal internal carotid without significant change, carotid plaque at the ostia bilateral vertebral arteries limiting assessment with high-grade stenosis not excluded. Vertebral arteries demonstrate normal opacification distal to the ostia and contributed to the basilar arteries. No intracranial aneurysm, vascular malformation or abnormal focus of arterial phase enhancement evident. Impression: Increased noncalcific plaque at the right internal carotid artery at the carotid canal with approximately 50% stenosis resulting with significant progression compared with the 2015 exam, a small noncalcific plaque at the left internal carotid artery at the carotid canal without hemodynamically significant stenosis. No central large vessel intracranial arterial occlusion or high-grade stenosis evident. Brain MRI showed significant widespread white matter disease but no restricted effusion multifocal remote infarct noted and stable enumerable chronic microhemorrhages. ASSESSMENT AND PLAN: Mr. Black is an 81-year-old gentleman who presented to the hospital with a history of blurry vision and some vision changes ongoing for approximately 2 weeks and then acute onset of left index finger numbness, which has since resolved. His vision has also improved. His workup shows evidence of old stroke but nothing new. He does have multiple stroke risk factors and at this point the plan needs to be secondary stroke risk factor reduction. 1. Continue aspirin and Plavix. 2. Continue tight blood pressure control. 3. If his hemoglobin A1c is elevated, follow and monitor and control his blood sugars. 4. He is a nonsmoker. 5. His LDL cholesterol is 77 on full dose statin, I would follow up with his primary care physician regarding the addition of medication, diet control, etc. Goal LDL of less than 70. Lab work was otherwise essentially normal. 6. 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 He needs followup with serial exams over time. 7. I would recommend that he follow up with an elder counselor as well regarding his vision issues. I plan to see him as an outpatient for a followup in approximately 1 month. [id number]/[facility] #: [id number] [facility] HOSPITALStarla
--- NOTE | 2017-01-27 06:35 | DS ---
CC: Dr. Javon Coleman, neurologist; Dr. Chriss Romero * DISCHARGE SUMMARY: DATE OF ADMISSION: 01/25/17 DATE OF DISCHARGE: 01/26/17 ADMISSION DIAGNOSES: 1. Possible transient ischemic attack. 2. Coronary artery disease. 3. Hypertension. 4. Hyperlipidemia. 5. Hypothyroidism. 6. Anxiety. 7. Depression. 8. Obstructive sleep apnea. DISCHARGE DIAGNOSES: 1. Possible transient ischemic attack. 2. Coronary artery disease. 3. Hypertension. 4. Hyperlipidemia. 5. Hypothyroidism. 6. Anxiety. 7. Depression. 8. Obstructive sleep apnea. HOSPITAL COURSE: The patient is an 81-year-old gentleman who presented to [facility] with a chief complaint of numbness and tingling on the tip of his finger and some blurry vision. Please see H and P for further details. The patient was admitted and seen by Neurology. The patient did have neurological checks. The patient had an MRI, CT of the head and neck and transthoracic echocardiogram all of which were fairly unremarkable, detailed below. The patient is without any evidence of a stroke. There is a question of whether or not this is even a TIA. The patient was back to his usual state of health on the date of discharge. The patient was stable to be discharged to home on 01/26/17 with close follow up with his PCP. PHYSICAL EXAMINATION: On the date of discharge, a well-developed, well- nourished gentleman lying in bed in no distress. Vital signs: Temperature 98.2 degrees, heart rate 68 beats per minute, respiratory rate 16 breaths per minute, pulse ox 98%, blood pressure 130/69. HEENT: Normocephalic, atraumatic. Pupils equal, round, and reactive to light. Moist mucous membranes. Neck: Supple. No JVD, bruits, palpable thyroid, or lymphadenopathy. Chest: Clear to auscultation and percussion bilaterally. Cardiovascular Exam: S1 and S2 appreciated. Abdominal Exam: Positive bowel sounds in all 4 quadrants, soft, nontender and nondistended. Extremities: No cyanosis, clubbing or edema. +2 peripheral pulses bilaterally. Neuro: Alert and oriented x3. Moves all extremities. Nonfocal. Skin: No rashes or abnormalities. STUDIES DONE WHILE IN THE HOSPITAL: Brain CT on 01/25/17. Impression: Cortical atrophy with chronic ischemic change. Brain MRI on 01/25/17. Impression: No restrictive diffusion to suggest acute infarct, diffuse involutional change, multifocal remote infarct, chronic small vessel ischemic changes, again noted innumerable chronic microhemorrhages stable. Head CTA on 01/25/17. Impression: Negative for significant restenosis at the post endarterectomy right internal carotid artery, approximately 50% stenosis of the left proximal internal carotid artery without significant change, significant calcific plaque at the ostia of bilateral vertebral arteries limiting assessment with high grade stenosis is not excluded. Both vertebral arteries demonstrate no opacification distal to the contributing to the basilar artery. Head angiogram. Impression: Increased noncalcific plaque of the right internal carotid artery at the carotid canal with approximately 50% stenosis resulting with significant progression compared with 2015 exam. Less marked noncalcific plaque left internal carotid artery at the carotid canal without hemodynamically significant stenosis resulting. No central large vessel intracranial arterial occlusion or high grade stenosis evident. Transthoracic echocardiogram, left ventricular chamber size is normal. Mild-to - moderate concentric left ventricular hypertrophy is observed, prominent septal knuckle, global left ventricular wall motion and contractility within normal limits. Left ventricular systolic function at lower limits of normal. Estimated ejection fraction 50% to 55%, abnormal left ventricular diastolic function filling is observed consistent with impaired relaxation. The left atrium is moderately dilated. The right atrium is [id number]-[id number]-[id number] dilated, trace to mild aortic regurgitation, mild aortic stenosis mean gradient of the aortic valve is 11.3 mmHg. Aortic valve area by VTI is calculated to be 1.7 cm sq. There was trace to mild mitral regurgitation, trace to mild tricuspid regurgitation. Compared to the study from 08/22/16, there are no significant changes. The left ventricular systolic function is mildly decreased, it was reported 55% to 60%, degree of left ventricular hypertrophy is mildly increased , but was mild. The patient was noted to be normal sinus rhythm. DISCHARGE MEDICATIONS: 1. Trazodone 50 mg at bedtime as needed. 2. Vitamin B12 as directed. 3. Bupropion 150 mg daily. 4. Lisinopril 5 mg daily. 5. Levothyroxine 160 mcg daily. 6. Plavix 75 mg daily. 7. Lipitor 80 mg in the evening. 8. Atenolol 25 mg daily. 9. Aspirin 325 mg daily. 10. Tamsulosin 0.4 mg in the evening. 11. Lorazepam 0.5 mg at bedtime. 12. Finasteride 5 mg in the evening. DISCHARGE PLAN: The patient will be discharged to home. Follow with his PCP within one week. The patient will return to ED if symptoms recur. TIME SPENT: Over 40 minutes was spent on this discharge, more than 25 minutes of which was spent in direct [id number] contact with the patient in evaluation , physical exam, counseling, and coordination of care. [id number]/[facility] #: [id number] CARRIE
== END 2017-01-26 13:59 | disposition home or self-care (01) ==
LOC: ED 08:43 → MEDTELE 10:15
PROVIDERS: ADMIT Internal Medicine; ATTEND Internal Medicine
DX: G45.9 Transient cerebral ischemic attack, unspecified (principal); I25.10 Atherosclerotic heart disease of native coronary artery without angina pectoris; I10 Essential (primary) hypertension; E78.5 Hyperlipidemia, unspecified; E03.9 Hypothyroidism, unspecified; F41.8 Other specified anxiety disorders; G47.33 Obstructive sleep apnea (adult) (pediatric); Z79.01 Long term (current) use of anticoagulants; I67.82 Cerebral ischemia; G31.89 Other specified degenerative diseases of nervous system; I65.22 Occlusion and stenosis of left carotid artery; I65.03 Occlusion and stenosis of bilateral vertebral arteries; I35.1 Nonrheumatic aortic (valve) insufficiency; I35.0 Nonrheumatic aortic (valve) stenosis; I34.0 Nonrheumatic mitral (valve) insufficiency; I36.1 Nonrheumatic tricuspid (valve) insufficiency; H53.8 Other visual disturbances; R20.0 Anesthesia of skin; Z87.891 Personal history of nicotine dependence; Z79.899 Other long term (current) drug therapy; Z86.73 Personal history of transient ischemic attack (TIA), and cerebral infarction without residual deficits
CPT/HCPCS: 36415; 70450; 70496; 70498; 70551; 80048; 80053; 80061; 81003; 82607; 82746; 83036; 83090; 83605; 84439; 84443; 84484; 85025; 85610; 86038; 93005; 93306; 99284; A9270-GY; G0378; J1644; Q9967

== ENCOUNTER 2017-02-06 15:29 | Emergency (ER) | payer MEDICARE ==
--- NOTE | 2017-02-06 18:49 | ED ---
Phillip Null Angela, scribed for Luis Soni MD on 02/06/17 at 1606 . Hypertension - HPI Summary HPI Summary: This pt is a 81 y/o male presenting to [facility] c/o high blood pressure. Pt was at Dr. Hahn's office for a routine check-up when they noticed a high blood pressure and was transferred to the ED. Pt denies chest pain, SOB, LE swelling, calf pain, abd pain. Per , pt has depression. Pt states changing depth perception, losing vision of the right eye and losing sensation of the left fingers s/p CVA. He notes he has stopped driving due to this. Pt had a tomato for lunch today. Pt had a stroke in 2011 and since has had left neglect. 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 Well Service Operator Helper - Aggravating Factor(s): Nothing Alleviating Factor(s): Nothing - Allergies/Home Medications Allergies/Adverse Reactions: Allergies Allergy/AdvReac Type Severity Reaction Status Date / Time Cephalexin [From Keflex] Allergy Unknown Verified 02/06/17 15:50 Reaction Details Morphine AdvReac Hallucinati Verified 09/19/16 12:46 ons Home Medications: Home Medications ARIPiprazole TAB* [Abilify 2 MG TAB*] 1 mg PO DAILY 02/06/17 [History Confirmed 02/06/17] Aspirin TAB* [Aspirin 325 MG TAB*] 325 mg PO DAILY 02/06/17 [History Confirmed 02/06/17] Cyanocobalamin TAB* [Vitamin B12 TAB*] 500 mcg PO TUTH 02/06/17 [History Confirmed 02/06/17] Lisinopril TAB* [Prinivil TAB*] 10 mg PO DAILY 02/06/17 [History Confirmed 02/06] PMH/Surg Hx/FS Hx/Imm Hx Endocrine/Hematology History: Reports: Hx Anticoagulant Therapy - plavix and ASA , Hx Thyroid Disease, Hx Anemia - SLIGHT Denies: Hx Diabetes Cardiovascular History: Reports: Hx Angina, Hx Coronary Artery Disease, Hx Hypercholesterolemia, Hx Hypertension, Hx Myocardial Infarction Denies: Hx Congestive Heart Failure, Hx Pacemaker/ICD, Other Cardiovascular Problems/Disorders Respiratory History: Reports: Hx Sleep Apnea - has CPAP Denies: Hx Asthma, Hx Chronic Obstructive Pulmonary Disease (COPD), Other Respiratory Problems/Disorders GI History: Reports: Hx Gastroesophageal Reflux Disease, Hx Ulcer - Gastric, Other GI Disorders - ? gerd History: Reports: Other Problems/Disorders - ENLARGE PROSTATE Denies: Hx Renal Disease Musculoskeletal History: Reports: Hx Arthritis - LEFT KNEE, Hx Osteoporosis - LEFT KNEE, Other Musculoskeletal History - knee surgery Sensory History: Reports: Hx Cataracts, Hx Contacts or Glasses, Hx Hearing Aid - REMOVED, Other Sensory Impairments - left visual cut after CVA Opthamlomology History: Reports: Hx Cataracts, Hx Contacts or Glasses, Other Sensory Impairments - left visual cut after CVA Neurological History: Reports: Hx CVA - stroke 2011 and 10/2014 - Lt deficits, Other Neuro Impairments/Disorders - CVA Denies: Hx Dementia, Hx Seizures Psychiatric History: Reports: Hx Anxiety - ONCE IN A WHILE Denies: Hx Panic Disorder, Hx Substance Abuse - Surgical History Surgery Procedure, Year, and Place: RIGHT ENDAREDECTOMY; CARDIAC STENTS PLACED; RIGHT SHOULDER ROTATOR CUFF REPAIR; PARTIAL THYROIDECTOMY; LEFT KNEE REPLACEMENT ; RIGHT BUNIONECTOMY; RIGHT KNEE ARTHROSCOPE; Hx Anesthesia Reactions: No Infectious Disease History: No Infectious Disease History: Reports: Hx Shingles - 2002 Denies: Hx Hepatitis, Hx Human Immunodeficiency Virus (HIV), Traveled Outside the [place] in Last 30 Days - Family History Known Family History: Positive: Cardiac Disease - Social History Alcohol Use: None Hx Substance Use: No Substance Use Type: Reports: None Hx Tobacco Use: Yes Smoking Status (MU): Former Smoker Type: Cigarettes Amount Used/How Often: 3 packs a day 39 years ago Have You Smoked in the Last Year: No Review of Systems Negative: Fever, Chills Eyes: Negative ENT: Negative Negative: Chest Pain Negative: Shortness Of Breath Negative: Abdominal Pain Genitourinary: Negative Negative: Edema Skin: Negative Neurological: Other - baseline left side neglect Negative: Headache, Weakness, Numbness All Other Systems Reviewed And Are Negative: Yes Physical Exam Triage Information Reviewed: Yes Vital Signs On Initial Exam: Initial Vitals Temp Pulse Resp BP Pulse Ox 98.7 F 57 17 161/67 96 02/06/17 15:40 02/06/17 15:40 02/06/17 15:40 02/06/17 15:40 02/06/17 15:40 Vital Signs Reviewed: Yes Appearance: Positive: Well-Appearing, No Pain Distress Skin: Positive: Warm, Skin Color Reflects Adequate Perfusion, Dry Head/Face: Positive: Normal Head/Face Inspection Eyes: Positive: EOMI, DEBBY ENT: Positive: Normal ENT inspection Neck: Positive: Supple, Nontender Respiratory/Lung Sounds: Positive: Clear to Auscultation, Breath Sounds Present Cardiovascular: Positive: RRR, Murmur Abdomen Description: Positive: Nontender, Soft Bowel Sounds: Positive: Present Musculoskeletal: Positive: Normal, Strength/ROM Intact Neurological: Positive: Normal, Sensory/Motor Intact, Alert, Oriented to Person Place, Time Psychiatric: Positive: Affect/Mood Appropriate Diagnostics - Vital Signs Vital Signs Temp Pulse Resp BP Pulse Ox 02/06/17 15:48 97.8 F 57 17 161/76 99 02/06/17 15:40 98.7 F 57 17 161/67 96 - Laboratory Lab Statement: Any lab studies that have been ordered have been reviewed, and results considered in the medical decision making process. - EKG 15:49 Cardiac Rate: Bradycardia - 59 bpm EKG Rhythm: Sinus Rhythm Ectopy: None EKG Interpretation: LVH Re-Evaluation - Re-Evaluation First Eval Re-Evaluation Time: 18:35 Comment: I reviewed the results with the pt. Hypertension Course/Dx - Course Course Of Treatment: BPS IN ED; 200/76, 158/69, 154/63, 173/71, 151/98. PATIENT FEELS WELL IN ED. NO CRITICAL CARE TIME. Assessment/Plan: This pt is a 81 y/o male presenting to [facility] c/o high blood pressure. Pt was at Dr. Hahn's office for a routine check-up when they noticed a high blood pressure and was transferred to the ED. Pt denies chest pain, SOB, LE swelling, calf pain, abd pain. Per , pt has depression. Pt states changing depth perception, losing vision of the right eye and losing sensation of the left fingers s/p CVA. He notes he has stopped driving due to this. Pt had a tomato for lunch today. Pt had a stroke in 2011 and since has had left neglect. EKG was obtained. EKG shows sinus bradycardia and LVH. Elevated BP noted and advised to follow up with PCP. Medications reviewed. - Diagnoses Provider Diagnoses: Hypertension Discharge - Discharge Plan Condition: Stable Disposition: HOME Patient Education Materials: Hypertension (ED) Referrals: Chriss Romero MD [Primary Care Provider] - Additional Instructions: FOLLOW UP WITH YOUR DOCTOR. RETURN TO THE EMERGENCY DEPARTMENT FOR ANY WORSENING OF YOUR CONDITION OR QUESTIONS OR CONCERNS. The documentation as recorded by the Phillip chambers Angela accurately reflects the service I personally performed and the decisions made by me, Luis Soni MD.
[2017-02-06 19:04] VITALS: BP 154/69
== END 2017-02-06 19:04 | disposition home or self-care (01) ==
LOC: ED 15:29
DX: I10 Essential (primary) hypertension (principal); Z87.891 Personal history of nicotine dependence
CPT/HCPCS: 93005; 99282

== ENCOUNTER 2017-02-13 14:03 | Emergency (ER) | payer MEDICARE ==
--- NOTE | 2017-02-13 14:47 | UC ---
Phillip Null Angela, scribed for Catalina Galvin MD on 02/13/17 at 1426 . Cardiac HPI - HPI Summary HPI Summary: This pt is an 81 y/o male accompanied by his presenting to [facility] c/o intermittent chest pain since today at 0600. Pt notes that since then it has become more pronounced intermittently. He states his chest pain "is neither 0 nor 10, it is just there." He further reports "there is not an elephant sitting on my chest" but there is an unusual feeling for him on his chest. Pt denies nausea, SOB, vomiting, headache, numbness, tingling or weakness. Pt has a PMHx of VA (25 years ago) associated with nausea. He was last in the ED on 02/06/17 for high blood pressure and possible TIA in January. Pt notes taking Plavix and Aspirin, per usual, this morning. - History of Current Complaint Chief Complaint: UCChestPain Stated Complaint: CHEST PAIN Time Seen by Provider: 02/13/17 14:15 Hx Obtained From: Patient, Family/Contingents Supervisor - Onset/Duration: Sudden Onset Timing: Intermittent Episodes Lasting: Chest Pain Location: Upper Sternal Aggravating: Nothing Alleviating: Nothing Associated Signs & Symptoms: Positive: Chest Pain. Negative: Headaches, Numbness, Tingling, Weakness, Nausea/Vomiting - Allergy/Home Medications Allergies/Adverse Reactions: Allergies Allergy/AdvReac Type Severity Reaction Status Date / Time Cephalexin [From Keflex] Allergy Severe Unknown Verified 02/13/17 14:38 Reaction Details Morphine AdvReac Hallucinati Verified 02/13/17 14:29 ons PMH/Surg Hx/FS Hx/Imm Hx Previously Healthy: No - cardiac dz with hx mi, recent tia (Jan 2017). Recent admission Endocrine History: Thyroid Disease Cardiovascular History: Hypertension GI/ History: Ulcer Neurological History: CVA Other History Of: Anticoagulant Therapy - plavix and ASA - Surgical History Surgical History: Yes Surgery Procedure, Year, and Place: RIGHT ENDAREDECTOMY; CARDIAC STENTS PLACED; RIGHT SHOULDER ROTATOR CUFF REPAIR; PARTIAL THYROIDECTOMY; LEFT KNEE REPLACEMENT ; RIGHT BUNIONECTOMY; RIGHT KNEE ARTHROSCOPE; - Family History Known Family History: Positive: Cardiac Disease - Social History Alcohol Use: None Substance Use Type: None Smoking Status (MU): Former Smoker Type: Cigarettes Amount Used/How Often: 3 packs a day 39 years ago Have You Smoked in the Last Year: No - Immunization History Most Recent Influenza Vaccination: 2013 Most Recent Tetanus Shot: 2011 Most Recent Pneumonia Vaccination: 2010 Review of Systems Constitutional: Negative Skin: Negative Eyes: Negative ENT: Negative Respiratory: Cough - dry, nonproductive Cardiovascular: Chest Pain Gastrointestinal: Negative Genitourinary: Negative Motor: Negative Neurovascular: Negative Musculoskeletal: Negative Neurological: Negative - denies new h/a, new p/dw. Psychological: Anxious - states feels a little anxious but not unusual All Other Systems Reviewed And Are Negative: Yes Physical Exam Triage Information Reviewed: Yes Appearance: Well-Nourished Vital Signs: Initial Vital Signs Temp 99.2 F 02/13/17 14:18 Pulse 72 02/13/17 14:18 Resp 18 02/13/17 14:18 BP 157/66 02/13/17 14:18 Pulse Ox 98 02/13/17 14:18 Vital Signs Reviewed: Yes Eye Exam: Normal ENT Exam: Normal Neck: Positive: Nontender Respiratory Exam: Normal Respiratory: Positive: Chest non-tender, Lungs clear, Normal breath sounds, No respiratory distress, No accessory muscle use Cardiovascular: Positive: RRR, Brisk Capillary Refill. Negative: No Murmur - approx 3/6 syst murm at LSB, correlates with L rad pulse Abdominal Exam: Normal - no abd bruit appreciated Abdomen Description: Positive: Nontender, No Organomegaly, Soft Bowel Sounds: Positive: Present Musculoskeletal Exam: Normal Musculoskeletal: Positive: Strength Intact - grossly intact, moves all 4 ext's Neurological Exam: Normal - nonfocal, grossly intact - detailed neurological exam not performed (transfer to ED) Psychological Exam: Normal - conversing easily and appropriately. Skin Exam: Normal - no visible or reported rash nono-diaphoretic - Assessment/Plan Course Of Treatment: Took asa 324mg po x 1 this am, also plavix 75mg pox1, both per usual routine. EKG sr 63. ST dep vs lvh (ekg hx lvh). Noted morphine allergy -> hallucinations. Saline lock ordered. D/w Dr. Mancuso, ED 1430. Pt transferred to ED via EMS. Oxygen via transfer. - Clinical Impression Provider Diagnoses: chest pain / discomfort. hx previous cardiac and cardiovascular dz Discharge - Discharge Plan Condition: Guarded Disposition: ADMITTED TO [facility] documentation as recorded by the Phillip chambers Angela accurately reflects the service I personally performed and the decisions made by me, Catalina Galvin MD.
[2017-02-13 15:20] VITALS: BP 141/68
== END 2017-02-13 14:55 | disposition short-term general hospital (02) ==
LOC: UCEAST 14:03
DX: R07.9 Chest pain, unspecified (principal); R07.89 Other chest pain; Z87.891 Personal history of nicotine dependence
CPT/HCPCS: 93005; 99213; G0463

== ENCOUNTER 2017-02-13 15:12 | Observation (INO) | payer MEDICARE ==
[2017-02-13 15:50] LABS: Hematocrit 39 % (42-52); Hemoglobin 13.5 g/dl (14.0-18.0); Mean Corpuscular HGB Conc 34 g/dl (31-36); Mean Corpuscular Hemoglobin 30 pg (27-31); Mean Corpuscular Volume 88 fL (80-94); Mean Platelet Volume 9 um3 (7.4-10.4); Red Blood Count 4.47 10^6/ul (4.0-5.4); Red Cell Distribution Width 13 % (10.5-15); White Blood Count 5.9 10^3/ul (3.5-10.8)
--- NOTE | 2017-02-13 16:07 | RAD ---
HISTORY: Chest pain COMPARISONS: January 30, 2015 VIEWS: 1: frontal portable view of the chest at 3:47 PM FINDINGS: LINES AND TUBES: None. CARDIOMEDIASTINAL SILHOUETTE: The cardiomediastinal silhouette is normal for portable technique. PLEURA: The costophrenic angles are sharp. No pleural abnormalities are noted. LUNG PARENCHYMA: The lungs are clear. ABDOMEN: The upper abdomen is clear. There is no subphrenic gas. BONES AND SOFT TISSUES: No bone or soft tissue abnormalities are noted. IMPRESSION: NO ACTIVE CARDIOPULMONARY DISEASE.
[2017-02-13 16:12] LABS: Albumin 3.9 g/dL (3.2-5.2); BUN/Creatinine Ratio 16.5 (8-20); EGFR African American 111.5 (>60); EGFR Non-African American 86.7 (>60); Globulin 2.7 g/dL (2-4); Potassium 3.7 mmol/L (3.5-5.0); Total Bilirubin 0.5 mg/dL (0.2-1.0); Total Protein 6.6 g/dL (6.4-8.9)
[2017-02-13] MEDS ORDERED: Tamsulosin CAP* 0.4 MG PO SCH (18:00)
[2017-02-13] MEDS ORDERED: Finasteride TAB* 5 MG PO SCH (18:00)
[2017-02-13] MEDS ORDERED: Atorvastatin* 80 MG TAB PO SCH (18:00)
[2017-02-13 18:12] LABS: HDL Cholesterol 36.8 mg/dL
[2017-02-13] MEDS ORDERED: hydrALAZINE IV* 20 MG/ML VIAL IV SLOW PU PRN (18:18)
[2017-02-13] MEDS ORDERED: Enoxaparin(*) 40 MG/0.4 ML SYR SUBCUT SCH (19:00)
[2017-02-13] MEDS ORDERED: LORazepam TAB(*) 0.5 MG PO PRN (21:00)
[2017-02-13] MEDS ORDERED: traZODone TAB* 50 MG TAB PO PRN (21:00)
--- NOTE | 2017-02-13 23:56 | HP ---
ATTENDING PHYSICIAN ADDENDUM NOW INCLUDED ON THIS REPORT CC: Chriss Romero MD * ADMISSION HISTORY AND PHYSICAL: DATE OF ADMISSION: 02/13/17 PRIMARY CARE DOCTOR: Chriss Romero MD MY ATTENDING WHILE IN THE HOSPITAL: Belen Sousa MD * (DICTATED BY DEBORAH SCRUGGS) CHIEF COMPLAINT: Chest pressure since this morning. HISTORY OF PRESENT ILLNESS: The patient is an 81-year-old man with a past medical history significant for coronary artery disease with an IA in 2013 with cath and stent, hypertension, hyperlipidemia, stroke, obstructive sleep apnea who presents with approximately 12 hours of chest pressure on the left side of his chest, which he acquaints to feeling like a pulled muscle. The patient denies any increase in activity using his chest muscles. The patient denies that the pain is reproducible with palpation. The patient cannot identify any palliative or provocative factors. The patient denies any shortness of breath, diaphoresis or nausea with this pain. The patient states that with his previous IA, he had predominantly nausea and pressure on his chest, but that was not similar to today. The patient states that the pain has been intermittent throughout the day and is not associated with exercise. The patient checks his blood pressure occasionally and states it is usually 150/mid 90's. The patient was seen in the emergency department on 02/06/17 for hypertensive urgency. The patient followed up with his primary care doctor, Dr. Romero, and is scheduled for a renal ultrasound to assess for renal artery stenosis causing secondary hypertension. The patient denies any increase in exercise intolerance or increased swelling in his legs. The patient states that he does have stable swelling in his legs ever since his stroke. The patient states that he has a murmur identified by echocardiogram, but he cannot specify which. The patient states that he has been exercising more and has lost 21 pounds intentionally in the past month. The patient did try to eat a good diet with lots of fish and avoiding red meat. The patient states he has been drinking a lot of water in preparation for his renal scan. Otherwise, the patient denies any change in urine, any constipation, diarrhea or any sick contacts. The patient had recurrence of chest tightness after we began the interview and an EKG was obtained which showed no change from ED admission EKG. PAST MEDICAL HISTORY: Coronary artery disease with IA, hypertension, hyperlipidemia, hypothyroidism, CVA, anxiety, depression, obstructive sleep apnea. PAST SURGICAL HISTORY: Thyroidectomy in 1980, rotator cuff surgery, carotid endarterectomy, left total knee replacement, cataract surgery, cath in 2013. CURRENT MEDICATIONS: 1. Trazodone 50 mg p.o. nightly. 2. Wellbutrin 150 mg p.o. daily. 3. Lisinopril 10 mg p.o. daily. 4. Synthroid 150 mcg p.o. daily. 5. Plavix 75 mg p.o. daily. 6. Lipitor 80 mg p.o. daily. 7. Tylenol 75 mg p.o. daily. 8. Aspirin 325 mg p.o. daily. 9. Flomax 0.4 mg p.o. daily. 10. Ativan 0.5 mg p.o. nightly for insomnia. 11. Finasteride 5 mg p.o. daily. 12. Abilify 1 mg p.o. daily. 13. Omeprazole 20 mg p.o. daily. 14. Amlodipine 5 mg p.o. daily. ALLERGIES: The patient is allergic to CEPHALEXIN and MORPHINE. FAMILY HISTORY: The patient's father has a strong history of hyperlipidemia. The patient denies any family history of coronary artery disease, diabetes, or cancer. SOCIAL HISTORY: The patient smoked from the ages of 17 to 40. The patient has not had alcohol since his most recent stroke and then before that, only drank socially. The patient denies any illicit drugs. 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 The patient used to be an avid bicyclist. The patient is and has 3 kids. REVIEW OF SYSTEMS: The patient denies fever, chills, nausea, vomiting, anorexia , diarrhea, constipation, abdominal pain, hematuria, dysuria, new-onset weakness , visual complaints, dysphagia, and new rashes. The patient attest to increased depression since his stroke, which is why he was recently put on Abilify. PHYSICAL EXAMINATION GENERAL: The patient is an 81-year-old male, who appears younger than stated age, who is sitting on the ER stretcher, in no acute distress. VITAL SIGNS: Heart rate 71, respiratory rate 21, oxygen saturation 97% on room air, blood pressure 159/65. HEENT: Head: Atraumatic, normocephalic. Sclerae anicteric. No conjunctival injection. Pharynx: Nonerythematous. Mucous membranes are moist and pink. NECK: No lymphadenopathy, supple. No carotid bruits auscultated. RESPIRATORY: Clear to auscultation. No wheezes, rales, or rhonchi. Good air exchange bilaterally. CARDIAC: Regular rate and rhythm. Grade 2/6 systolic murmur heard at the left and right upper sternal border, louder at the left. Grade 3/6 holosystolic murmur heard best at the apex radiating to the axilla. Radial, posterior tibial , and dorsalis pedis pulses are 2+ bilaterally. 1+ pitting edema bilaterally. ABDOMEN: Soft, nontender, nondistended. Bowel sounds are present, normoactive in all 4 quadrants. No abdominal bruits auscultated. No hepatosplenomegaly. NEURO: The patient has a slight facial droop on the left side. Cranial nerves II through XII are otherwise intact. The patient is alert and oriented x3. SKIN: [place], dry, and intact. DIAGNOSTIC STUDIES/LAB DATA: White blood cell count 5.9, hemoglobin 13.5, hematocrit 39, platelets 165. Sodium 140, potassium 3.7, chloride 104, carbon dioxide 31, anion gap of 5, BUN 14, creatinine 0.85, glucose 109, lactic acid 1.3. Calcium 9.0, AST 19, AST 16, troponin I 0.00. Cholesterol 93, LDL cholesterol 40, HDL cholesterol 36.8. EKG on arrival shows no ST segment changes, normal axis, no hypertrophy or enlargement. No other pertinent findings. EKG taken an hour and a half later at the beginning of the interview shows no changes. Chest x-ray read as no active cardiopulmonary disease. IMPRESSION: The patient is an 81-year-old male with past medical history significant for coronary artery disease with myocardial infarction, hypertension , hyperlipidemia, cerebrovascular accident, and obstructive sleep apnea who presents today with intermittent chest pain that could be of cardiac origin. We will admit for observation to telemetry, trend troponins, and do an exercise stress test in the morning. 1. Chest pain, rule out myocardial infarction. The patient has significant risk factors and chest pain that could be related to myocardial ischemia. I will trend troponin at this time and perform a nuclear exercise stress test in the morning to assess for ischemia. The patient is already on maximum secondary prevention and has a very good lipid profile. 2. Hypertension. The patient has had issues with increasing and relatively uncontrolled hypertension. The patient is now on 4 blood pressure lowering agents and still has a blood pressure that is 150/90 approximately at home. We will continue all blood pressure medications in the hospital and order IV hydralazine for sustained hypertension. The patient should continue outpatient workup for secondary cause of hypertension including renal artery ultrasound. 3. Hyperlipidemia. Continue the patient's home Lipitor. The patient has excellent lipids at this time. 4. History of cerebrovascular accident. The patient is still on Plavix and aspirin for secondary prevention of stroke. We will continue these while in the hospital. 5. Hypothyroidism. Continue the patient's levothyroxine home dose. 6. Anxiety and depression. Continue the patient's trazodone and Abilify home dose. We will discontinue the patient's Wellbutrin while in the hospital. 7. Obstructive sleep apnea. CPAP ordered while the patient is in the hospital with the patient's home settings. 8. FEN. The patient is on a heart healthy, no caffeine diet until midnight. The patient is NPO after midnight. We will start normal saline at 125 mL an hour at that time. 9. DVT prophylaxis. The patient is high risk. We will start on Lovenox 40 mg subcutaneous every 24 hours. We will order SCDs while in bed. The patient is ad kobi. 10. Code status. The patient would like to be a DNR. He does not have a MOLST form filled out. The patient's healthcare proxy is his , Laurita Black. 11. Disposition: The patient is admitted to telemetry observation. TIME SPENT: Approximately 60 minutes were spent on this admission, over half of which was spent [id number] with the patient obtaining history and physical. The plan was discussed with my attending, Dr. Belen Sousa, and she is in agreement with this plan. DEBORAH SCRUGGS ADDENDUM: Mr. Black is an 81-year-old male with history of coronary artery disease, who presents complaining of chest pain. His workup so far is unremarkable. He is going to be placed on overnight observation and treadmill stress test in the morning. For further details of the patient's presentation and plan, please see history and physical dictated by Luis Mcintosh on 02/13/17, with which I agree. BELEN SOUSA MD [id number]/[facility] #: [id number]/[facility]PS #: [id number] CARRIE
--- NOTE | 2017-02-13 23:56 | HP ---
HISTORY AND PHYSICAL:* ADDENDUM: Mr. Black is an 81-year-old male with history of coronary artery disease, who presents complaining of chest pain. His workup so far is unremarkable. He is going to be placed on overnight observation and treadmill stress test in the morning. For further details of the patient's presentation and plan, please see history and physical dictated by Luis Mcintosh on 02/13/17 , with which I agree. [id number]/[facility] #: [id number] CARRIE
[2017-02-14] MEDS ORDERED: NS 0.9% 1000 ML* 1,000 ML IV SCH
[2017-02-14] MEDS ORDERED: Levothyroxine TAB* 150 MCG TAB PO SCH (06:00)
[2017-02-14 07:08] LABS: Hematocrit 39 % (42-52); Hemoglobin 13.6 g/dl (14.0-18.0); Mean Corpuscular HGB Conc 35 g/dl (31-36); Mean Corpuscular Hemoglobin 30 pg (27-31); Mean Corpuscular Volume 87 fL (80-94); Mean Platelet Volume 8 um3 (7.4-10.4); Red Blood Count 4.49 10^6/ul (4.0-5.4); Red Cell Distribution Width 13 % (10.5-15); White Blood Count 5.9 10^3/ul (3.5-10.8)
[2017-02-14 07:22] LABS: BUN/Creatinine Ratio 14.6 (8-20); Calcium 8.6 mg/dL (8.6-10.3); EGFR African American 116.3 (>60); EGFR Non-African American 90.4 (>60); Potassium 3.4 mmol/L (3.5-5.0)
[2017-02-14] MEDS ORDERED: Aminophylline IV* 25 MG/ML 10 ML VIAL ONE (08:40)
[2017-02-14] MEDS ORDERED: Regadenoson* 0.4 MG/5 ML SYRINGE ONE (08:40)
[2017-02-14] MEDS ORDERED: Lisinopril TAB* 10 MG PO SCH (09:00)
[2017-02-14] MEDS ORDERED: Atenolol TAB* 25 MG PO SCH (09:00)
[2017-02-14] MEDS ORDERED: amLODIPine TAB* 5 MG PO SCH (09:00)
[2017-02-14] MEDS ORDERED: Aspirin TAB* 325 MG PO SCH (09:00)
[2017-02-14] MEDS ORDERED: CMCS:Pantoprazole TAB (NF) 40 MG TAB PO SCH (09:00)
[2017-02-14] MEDS ORDERED: ARIPiprazole TAB* 2 MG PO SCH (09:00)
[2017-02-14] MEDS ORDERED: Clopidogrel TAB* 75 MG PO SCH (09:00)
--- NOTE | 2017-02-14 10:29 | RAD ---
HISTORY: Chest pain, previous VA, hypertension, hyperlipidemia COMPARISONS: July 03, 2013 TECHNIQUE: A 1 day stress/rest myocardial perfusion study was performed, with exercise stress. The exercise portion was performed using the Jos protocol, for a total METs of 7. The stress portion was monitored by Dr. Schultz. Gated SPECT imaging was performed, with CT-based attenuation correction DOSE: Stress: Technetium 99m tetrofosmin, 25.39 millicuries, injected at 8:50 AM on February 14, 2017 Rest: Technetium 99m tetrofosmin, 10.17 millicuries, injected at 6:51 AM on February 14, 2017 Pharmacologic agent: None FINDINGS: CARDIAC MONITORING: Peak heart rate of 142 bpm, 101% of predicted. EF: 55 % TID: 1.08 MOTION: Normal motion, with normal wall thickening. PERFUSION: There is hypoperfusion of the apex which may be physiologic or reflect remote infarct. There are no reversible perfusion defects.. OTHER: None IMPRESSION: PHYSIOLOGIC APICAL THINNING VERSUS REMOTE APICAL INFARCT. NO REVERSIBLE PERFUSION DEFECTS. ASSESSMENT: LOW RISK. Based on imaging criteria from ACC/AHA 2002. Guideline Update for the Management of Patient's with Chronic Stable Angina, table 23. Noninvasive Risk Stratification.
[2017-02-14 11:03] VITALS: BP 133/65
--- NOTE | 2017-02-14 11:56 | PN ---
Subjective Date of Service: 02/14/17 Interval History: Patient had an uneventful night and went to the stress test this morning which was completed without incident. Patient denies any CP, SOB, Diaphoresis, or nausea. Patient denies any other acute complaints before discharge. Patient is concerned that he missed his renal ultrasound this morning and would like to reschedule it as soon as possible. Family History: Unchanged from Admission Social History: Unchanged from Admission Past Medical History: Unchanged from Admission Objective Active Medications: Aripiprazole (Abilify Tab*) 1 mg PO DAILY [facility] Last Admin: 02/14/17 10:27 Dose: 1 mg Aspirin (Aspirin Tab*) 325 mg PO DAILY [facility] Last Admin: 02/14/17 09:04 Dose: 325 mg Atenolol (Tenormin Tab*) 25 mg PO DAILY [facility] Last Admin: 02/14/17 09:04 Dose: 25 mg Atorvastatin Calcium (Lipitor*) 80 mg PO QPM [facility] Last Admin: 02/13/17 21:34 Dose: 80 mg Clopidogrel Bisulfate (Plavix Tab*) 75 mg PO DAILY [facility] Last Admin: 02/14/17 09:05 Dose: 75 mg Enoxaparin Sodium (Lovenox(*)) 40 mg SUBCUT Q24H [facility] Last Admin: 02/13/17 21:35 Dose: 40 mg Finasteride (Proscar Tab*) 5 mg PO QPM [facility] Last Admin: 02/13/17 21:35 Dose: 5 mg Hydralazine HCl (Apresoline Iv*) 5 mg IV SLOW PU Q6H PRN PRN Reason: SYSTOLIC BP GREATER THAN: Sodium Chloride (Ns 0.9% 1000 Ml*) 1,000 mls @ 125 mls/hr IV PER RATE [facility] Last Admin: 02/13/17 23:53 Dose: 125 mls/hr Levothyroxine Sodium (Synthroid Tab*) 150 mcg PO DAILY@0600 [facility] Last Admin: 02/14/17 05:49 Dose: 150 mcg Lisinopril (Prinivil Tab*) 10 mg PO DAILY [facility] Last Admin: 02/14/17 09:05 Dose: 10 mg Lorazepam (Ativan Tab(*)) 0.5 mg PO BEDTIME PRN PRN Reason: INSOMNIA Last Admin: 02/13/17 21:54 Dose: 0.5 mg Pantoprazole Sodium (Protonix Tab (Nf)) 40 mg PO DAILY [facility] Last Admin: 02/14/17 10:27 Dose: 40 mg Tamsulosin HCl (Flomax Cap*) 0.4 mg PO QPM [facility] Last Admin: 02/13/17 21:34 Dose: 0.4 mg Trazodone HCl (Desyrel Tab*) 50 mg PO BEDTIME PRN PRN Reason: SLEEP Vital Signs 02/13/17 02/13/17 02/13/17 17:00 17:30 18:00 Temperature Pulse Rate 62 67 63 Respiratory 16 19 18 Rate Blood Pressure 159/65 135/74 128/54 (mmHg) O2 Sat by Pulse 97 95 95 Oximetry 02/13/17 02/13/17 02/13/17 18:11 18:35 20:00 Temperature 98.4 F 97.3 F Pulse Rate 58 73 Respiratory 16 16 20 Rate Blood Pressure 136/68 134/64 (mmHg) O2 Sat by Pulse 95 96 Oximetry 02/13/17 02/13/17 02/13/17 20:15 21:00 21:54 Temperature Pulse Rate 61 Respiratory 20 20 20 Rate Blood Pressure 107/53 (mmHg) O2 Sat by Pulse 97 Oximetry 02/14/17 02/14/17 02/14/17 00:14 04:07 07:52 Temperature 98.4 F 97.7 F Pulse Rate 61 58 Respiratory 16 16 16 Rate Blood Pressure 118/51 136/53 (mmHg) O2 Sat by Pulse 96 96 Oximetry 02/14/17 10:08 Temperature 97.5 F Pulse Rate 62 Respiratory 14 Rate Blood Pressure 133/65 (mmHg) O2 Sat by Pulse 96 Oximetry Oxygen Devices in Use Now: None Appearance: Patient is a 81 yo male sitting comfortably in bed in [facility]. Eyes: No Scleral Icterus, PERRLA Ears/Nose/Mouth/Throat: NL Teeth, Lips, Gums, Clear Oropharnyx, Mucous Membranes Moist Neck: NL Appearance and Movements; NL JVP, Trachea Midline Respiratory: Symmetrical Chest Expansion and Respiratory Effort, Clear to Auscultation Cardiovascular: RRR, No Edema, - - 2/6 murmur heard best at Right upper sternal border at the second intercostal space. 3/6 murmur heard at apex radiating to axilla. Consistent with yesterday. Radial, DP, PT pulses 2+ B/L. Abdominal: NL Sounds; No Tenderness; No Distention, No Hepatosplenomegaly Lymphatic: No Cervical Adenopathy Extremities: No Edema Skin: No Rash or Ulcers Neurological: Alert and Oriented x 3, NL Gait, - - Residual facial droop and lowering of the homonomous soft palate consistent with yesterday. Result Diagrams: 02/14/17 06:46 02/14/17 06:46 Additional Lab and Data: Lab Results 02/13/17 Range/Units 15:30 WBC 5.9 (3.5-10.8) 10^3/ul RBC 4.47 (4.0-5.4) 10^6/ul Hgb 13.5 L (14.0-18.0) g/dl Hct 39 L (42-52) % MCV 88 (80-94) fL MCH 30 (27-31) pg MCHC 34 (31-36) g/dl RDW 13 (10.5-15) % Plt Count 165 (150-450) 10^3/ul MPV 9 (7.4-10.4) um3 Neut % (Auto) 64.5 (38-83) % Lymph % (Auto) 21.2 L (25-47) % [place] % (Auto) 11.1 H (1-9) % Eos % (Auto) 2.8 (0-6) % Baso % (Auto) 0.4 (0-2) % Absolute Neuts (auto) 3.8 (1.5-7.7) 10^3/ul Absolute Lymphs (auto) 1.3 (1.0-4.8) 10^3/ul Absolute Monos (auto) 0.7 (0-0.8) 10^3/ul Absolute Eos (auto) 0.2 (0-0.6) 10^3/ul Absolute Basos (auto) 0 (0-0.2) 10^3/ul Absolute Nucleated RBC 0 10^3/ul Nucleated RBC % 0.1 02/13/17 02/13/17 02/13/17 15:30 15:30 15:30 WBC 5.9 RBC 4.47 Hgb 13.5 L Hct 39 L MCV 88 MCH 30 MCHC 34 RDW 13 Plt Count 165 MPV 9 Neut % (Auto) 64.5 Lymph % (Auto) 21.2 L [place] % (Auto) 11.1 H Eos % (Auto) 2.8 Baso % (Auto) 0.4 Absolute Neuts (auto) 3.8 Absolute Lymphs (auto) 1.3 Absolute Monos (auto) 0.7 Absolute Eos (auto) 0.2 Absolute Basos (auto) 0 Absolute Nucleated RBC 0 Nucleated RBC % 0.1 Sodium 140 Potassium 3.7 Chloride 104 Carbon Dioxide 31 Anion Gap 5 BUN 14 Creatinine 0.85 Est GFR ( Amer) 111.5 Est GFR (Non-Af Amer) 86.7 BUN/Creatinine Ratio 16.5 Glucose 109 H Lactic Acid 1.3 Calcium 9.0 Total Bilirubin 0.50 AST 19 ALT 16 Alkaline Phosphatase 52 Troponin I 0.00 Total Protein 6.6 Albumin 3.9 Globulin 2.7 Albumin/Globulin Ratio 1.4 Triglycerides 80 Cholesterol 93 LDL Cholesterol 40 HDL Cholesterol 36.8 02/13/17 02/13/17 02/14/17 18:38 21:49 06:46 WBC 5.9 RBC 4.49 Hgb 13.6 L Hct 39 L MCV 87 MCH 30 MCHC 35 RDW 13 Plt Count 155 MPV 8 Neut % (Auto) 66.3 Lymph % (Auto) 22.6 L [place] % (Auto) 8.1 Eos % (Auto) 2.5 Baso % (Auto) 0.5 Absolute Neuts (auto) 3.9 Absolute Lymphs (auto) 1.3 Absolute Monos (auto) 0.5 Absolute Eos (auto) 0.1 Absolute Basos (auto) 0 Absolute Nucleated RBC 0 Nucleated RBC % 0.1 Sodium Potassium Chloride Carbon Dioxide Anion Gap BUN Creatinine Est GFR ( Amer) Est GFR (Non-Af Amer) BUN/Creatinine Ratio Glucose Lactic Acid Calcium Total Bilirubin AST ALT Alkaline Phosphatase Troponin I 0.00 0.00 Total Protein Albumin Globulin Albumin/Globulin Ratio Triglycerides Cholesterol LDL Cholesterol HDL Cholesterol 02/14/17 06:46 WBC RBC Hgb Hct MCV MCH MCHC RDW Plt Count MPV Neut % (Auto) Lymph % (Auto) [place] % (Auto) Eos % (Auto) Baso % (Auto) Absolute Neuts (auto) Absolute Lymphs (auto) Absolute Monos (auto) Absolute Eos (auto) Absolute Basos (auto) Absolute Nucleated RBC Nucleated RBC % Sodium 138 Potassium 3.4 L Chloride 104 Carbon Dioxide 28 Anion Gap 6 BUN 12 Creatinine 0.82 Est GFR ( Amer) 116.3 Est GFR (Non-Af Amer) 90.4 BUN/Creatinine Ratio 14.6 Glucose 86 Lactic Acid Calcium 8.6 Total Bilirubin AST ALT Alkaline Phosphatase Troponin I Total Protein Albumin Globulin Albumin/Globulin Ratio Triglycerides Cholesterol LDL Cholesterol HDL Cholesterol Assess/Plan/Problems-Billing Assessment: Patient is a 81yo male with a PMH significant for CAD with previous ME, HTN, HLD , Previous CVA, PRAKASH, and anxiety/depression who presented yesterday with chest pain and was kept overnight for a stress test in the morning. - Patient Problems (1) Chest pain of unknown etiology Current Visit: Yes Status: Acute Code(s): R07.89 - OTHER CHEST PAIN SNOMED Code(s): 10967812 Comment: Patient admitted for ME ruleout with stress test this morning which was negative. Patient no longer having chest pain. No other symptoms associated with chest pain. (2) Coronary atherosclerosis Current Visit: No Status: Chronic Priority: Medium Onset Date: 02/06/14 Code(s): I25.10 - ATHSCL HEART DISEASE OF [place] CORONARY ARTERY W/O ANG PCTRS SNOMED Code(s): 519844273 Comment: No current evidence of new cardiac ischemia. Continue home secondary prevention. (3) Hyperlipemia Current Visit: No Status: Chronic Priority: Medium Onset Date: 10/10/14 Code(s): E78.5 - HYPERLIPIDEMIA, UNSPECIFIED SNOMED Code(s): 52608332 Comment: Continue Lipitor at current dose Lipid profile from 06/27 was excellent. (4) Hypertension Current Visit: No Status: Chronic Priority: Medium Onset Date: 10/10/14 Code(s): I10 - ESSENTIAL (PRIMARY) HYPERTENSION SNOMED Code(s): 93028621 Comment: BP fluctuated throughout admission. Continue home antihypertensive medications. Continue outpatient workup for secondary causes of HTN. (5) Hypothyroidism Current Visit: No Status: Chronic Priority: Medium Onset Date: 10/10/14 Code(s): E03.9 - HYPOTHYROIDISM, UNSPECIFIED SNOMED Code(s): 30412867 Comment: Continue levothyroxine. (6) PRAKASH (obstructive sleep apnea) Current Visit: No Status: Chronic Code(s): G47.33 - OBSTRUCTIVE SLEEP APNEA (ADULT) (PEDIATRIC) SNOMED Code(s): 69807351 Comment: Continue home CPAP use. (7) DVT prophylaxis Current Visit: No Status: Acute Code(s): VCC1250 - SNOMED Code(s): 400849826 Comment: SQ Lovenox SCDs on in bed. Status and Disposition: Patient will be discharged home today.
--- NOTE | 2017-02-14 12:26 | DS ---
DATE OF ADMISSION: 02/13/2017. DATE OF DISCHARGE: 02/14/2017. ATTENDING PHYSICIAN WHILE IN THE HOSPITAL: Dr. Belen Sousa * (dictated by DEBORAH Scruggs). PRIMARY CARE PHYSICIAN: Dr. Seven Romero. PRIMARY DISCHARGE DIAGNOSIS: Chest pain. SECONDARY DIAGNOSES: Coronary artery disease with history of TX, hypertension, hyperlipidemia, hypothyroidism, history of CVA, anxiety, depression, and obstructive sleep apnea. MEDICATIONS AT DISCHARGE: 1. Tamsulosin 0.4 mg p.o. daily. 2. Finasteride 5 mg p.o. every evening. 3. Trazodone 50 mg p.o. at bedtime as needed. 4. Plavix 75 mg p.o. daily. 5. Ativan 0.5 mg p.o. at bedtime as needed. 6. Synthroid 150 mcg oral daily. 7. Atenolol 25 mg oral daily. 8. Lipitor 80 mg oral every evening. 9. Wellbutrin 150 mg oral daily. 10. Abilify 1 mg oral daily. 11. Lisinopril 10 mg oral daily. 12. Aspirin 325 mg oral daily. 13. Amlodipine 5 mg oral daily. 14. Omeprazole 25 mg oral daily. TESTING DONE DURING THIS ADMISSION: 1. EKG showed no ST segment changes, normal sinus rhythm, and no other significant changes consistent with previous studies. 2. Chest x-ray from February 13 read as no acute cardiopulmonary process. 3. Nuclear medicine stress test showed physiologic apical thinning versus remote apical infarct, no reversible perfusion defects. Low risk. HOSPITAL COURSE OF STAY: For full details, please refer to the history and physical from February 13 by DEBORAH Scruggs. In summary, Mr. Black is an 81-year-old male with a past medical history as stated above who presented to the ER with 12 hours of chest discomfort that he equated to a pulled muscle. He went to Urgent Care and they were concerned that it was of cardiac origin and he was sent to the emergency department. In the emergency department, his EKG's were normal, but he was decided to be admitted for observation with a stress test in the morning due to previous TX with significant comorbidities and risk factors. The patient stayed overnight uneventfully and was taken to the stress test in the morning. The patient tolerated the stress test well with no recurrence of chest discomfort, nausea, vomiting or diaphoresis. The patient denied any other complaints overnight. The patient was most concerned about outpatient renal ultrasound that he had scheduled through his primary care doctor that was this morning and that he was unable to go to due to the stress test. Mr. Black had no acute complaints prior to discharge. He will follow-up with his PCP, Dr. Seven Romero, this Sunday and will reschedule his renal vascular ultrasound. DIET: Heart healthy diet, no caffeine. ACTIVITY: As tolerated. CONDITION: Stable. DISPOSITION: To home. TIME SPENT: Approximately 60 minutes were spent on this discharge. This is a brief discharge summary of the patient's hospital course of stay. For full details, please refer to the full medical record. If you have any questions or need further assistance, please feel free to contact me at . DEBORAH SCRUGGS [id number]/[facility] #: [id number] CARRIE
--- NOTE | 2017-02-15 08:43 | ED ---
Blossom Null Thomas, scribed for Jorge Watt MD on 02/13/17 at 1604 . HPI Chest Pain - HPI Summary HPI Summary: The pt is a 81 y/o M BIBA from [facility] [place] c/o CP just under the nipple that began at 06:00 but has since resolved at time of examination in the ED. He describes an unusual feeling in his chest described as a finger inside my chest. The patient does not give a rating out of ten for his pain but says it is neither 0 nor 10, it is just there. The pain is aggravated and alleviated by nothing. The patient took ASA 324mg PO and Plavix 75mg PO this morning. He was a patient at [facility] ED last week for hypertension. Pt denies cough, painful breathing , nausea, SOB, vomiting, OCAMPO, numbness, tingling, and weakness. PMHx: RI (25 years ago), TIA, HTN, CVA. PSHx: cardiac stents, right endarterectomy. SHx: former smoker, no alcohol use, no substance use. FHx: CAD. He has a renal scan scheduled for tomorrow to evaluate possible renal artery stenosis. He sees Dr. Hahn. His PCP is Dr. Romero. - History of Current Complaint Chief Complaint: EDChestPainROMI Time Seen by Provider: 02/13/17 16:02 Hx Obtained From: Patient, Family/Tow Truck Operator - is present Onset/Duration: Started Hours Ago - onset today at 06:00, Resolved Timing: Constant Pain Intensity: 0 Pain Scale Used: 0-10 Numeric Chest Pain Location: Discrete at: - "just under the nipple" Chest Pain Radiates: No Aggravating Factor(s): Nothing Alleviating Factor(s): Nothing Associated Signs and Symptoms: Positive: Chest Pain. Negative: Headaches, Numbness, Tingling, Weakness, Cough, Other: - NEG: painful breathing, headache, nausea - Additional Pertinent History Primary Care Physician: [id number] - Allergy/Home Medications Allergies/Adverse Reactions: Allergies Allergy/AdvReac Type Severity Reaction Status Date / Time Cephalexin [From Keflex] Allergy Severe Unknown Verified 02/13/17 14:38 Reaction Details Morphine AdvReac Hallucinati Verified 02/13/17 14:29 ons Home Medications: Home Medications Amlodipine Besylate 5 mg PO DAILY 02/13/17 [History Confirmed 02/13/17] Omeprazole 20 mg PO DAILY 02/13/17 [History Confirmed 02/13/17] PMH/Surg Hx/FS Hx/Imm Hx Previously Healthy: No Endocrine/Hematology History: Reports: Hx Anticoagulant Therapy - plavix and ASA , Hx Thyroid Disease, Hx Anemia - SLIGHT Denies: Hx Diabetes Cardiovascular History: Reports: Hx Angina, Hx Coronary Artery Disease, Hx Hypercholesterolemia, Hx Hypertension, Hx Myocardial Infarction Denies: Hx Congestive Heart Failure, Hx Pacemaker/ICD, Other Cardiovascular Problems/Disorders Respiratory History: Reports: Hx Sleep Apnea - has CPAP Denies: Hx Asthma, Hx Chronic Obstructive Pulmonary Disease (COPD), Other Respiratory Problems/Disorders GI History: Reports: Hx Gastroesophageal Reflux Disease, Hx Ulcer - Gastric, Other GI Disorders - ? gerd History: Reports: Other Problems/Disorders - ENLARGE PROSTATE Denies: Hx Renal Disease Musculoskeletal History: Reports: Hx Arthritis - LEFT KNEE, Hx Osteoporosis - LEFT KNEE, Other Musculoskeletal History - knee surgery Sensory History: Reports: Hx Cataracts, Hx Contacts or Glasses, Hx Hearing Aid - REMOVED, Other Sensory Impairments - left visual cut after CVA Opthamlomology History: Reports: Hx Cataracts, Hx Contacts or Glasses, Other Sensory Impairments - left visual cut after CVA Neurological History: Reports: Hx CVA - stroke 2011 and 10/2014 - Lt deficits, Other Neuro Impairments/Disorders - CVA Denies: Hx Dementia, Hx Seizures Psychiatric History: Reports: Hx Anxiety - ONCE IN A WHILE Denies: Hx Panic Disorder, Hx Substance Abuse - Surgical History Surgery Procedure, Year, and Place: RIGHT ENDAREDECTOMY; CARDIAC STENTS PLACED; RIGHT SHOULDER ROTATOR CUFF REPAIR; PARTIAL THYROIDECTOMY; LEFT KNEE REPLACEMENT ; RIGHT BUNIONECTOMY; RIGHT KNEE ARTHROSCOPE; Hx Anesthesia Reactions: No Infectious Disease History: Reports: Hx Shingles - 2002 Denies: Hx Clostridium Difficile, Hx Hepatitis, Hx Human Immunodeficiency Virus (HIV), Hx of Known/Suspected MRSA, Hx Tuberculosis, Hx Known/Suspected VRE , Hx Known/Suspected VRSA, History Other Infectious Disease, Traveled Outside the [place] in Last 30 Days - Family History Known Family History: Positive: Cardiac Disease - Social History Alcohol Use: None Hx Substance Use: No Substance Use Type: Reports: None Hx Tobacco Use: Yes Smoking Status (MU): Former Smoker Type: Cigarettes Amount Used/How Often: 3 packs a day 39 years ago Have You Smoked in the Last Year: No Review of Systems Negative: Fever, Chills Negative: Erythema - eyes Negative: Sore Throat Positive: Chest Pain - "just under the nipple" Negative: Shortness Of Breath, Cough, Other - NEG: painful breathing Negative: Abdominal Pain, Vomiting, Nausea Negative: dysuria, hematuria Negative: Myalgia, Edema - eyes Negative: Rash Neurological: Other - NEG: dizziness, tingling weakness Negative: Headache, Numbness All Other Systems Reviewed And Are Negative: Yes Physical Exam - Summary Physical Exam Summary: Constitutional: Well-developed, Well-nourished, Alert. (-) Distressed Skin: Warm, Dry HENT: Normocephalic; Atraumatic Eyes: Conjunctiva normal Neck: Musculoskeletal ROM normal neck. (-) JVD, (-) Stridor, (-) Tracheal deviation Cardio: Rhythm regular, rate normal, Heart sounds normal; Intact distal pulses; The pedal pulses are 2+ and symmetric. Radial pulses are 2+ and symmetric. (-) Murmur Pulmonary/Chest wall: Effort normal. (-) Respiratory distress, (-) Wheezes, (-) Rales Abd: Soft, (-) Tenderness, (-) Distension, (-) Guarding, (-) Rebound Musculoskeletal: (-) Edema Lymph: (-) Cervical adenopathy Neuro: Alert, Oriented x3 Psych: Mood and affect Normal Triage Information Reviewed: Yes Vital Signs On Initial Exam: Temp = 98.4, HR = 60, RR = 15, SaO2 = 97, BP = 134/63. Vital Signs Reviewed: Yes Diagnostics - Vital Signs Temp = 98.4, HR = 60, RR = 15, SaO2 = 97, BP = 134/63. - Laboratory Lab Results: Lab Results 02/13/17 Range/Units 15:30 WBC 5.9 (3.5-10.8) 10^3/ul RBC 4.47 (4.0-5.4) 10^6/ul Hgb 13.5 L (14.0-18.0) g/dl Hct 39 L (42-52) % MCV 88 (80-94) fL MCH 30 (27-31) pg MCHC 34 (31-36) g/dl RDW 13 (10.5-15) % Plt Count 165 (150-450) 10^3/ul MPV 9 (7.4-10.4) um3 Neut % (Auto) 64.5 (38-83) % Lymph % (Auto) 21.2 L (25-47) % [place] % (Auto) 11.1 H (1-9) % Eos % (Auto) 2.8 (0-6) % Baso % (Auto) 0.4 (0-2) % Absolute Neuts (auto) 3.8 (1.5-7.7) 10^3/ul Absolute Lymphs (auto) 1.3 (1.0-4.8) 10^3/ul Absolute Monos (auto) 0.7 (0-0.8) 10^3/ul Absolute Eos (auto) 0.2 (0-0.6) 10^3/ul Absolute Basos (auto) 0 (0-0.2) 10^3/ul Absolute Nucleated RBC 0 10^3/ul Nucleated RBC % 0.1 Result Diagrams: 02/14/17 06:46 02/14/17 06:46 Lab Statement: Any lab studies that have been ordered have been reviewed, and results considered in the medical decision making process. - Radiology CXR Xray Interpretation: No Acute Changes - No active cardiopulmonary disease. ED Physician has read this report and agrees. Radiology Interpretation Completed By: Radiologist - EKG 15:16 Cardiac Rate: Bradycardia - 54 BPM EKG Interpretation: Sinus bradycardia. No STEMI. Chest Pain Course/Dx - Course Assessment/Plan: The pt is a 81 y/o M BIBA from [facility] [place] c/o CP just under the nipple that began at 06:00 but has since resolved at time of examination in the ED. He describes an unusual feeling in his chest described as a finger inside my chest. The pain is aggravated and alleviated by nothing. The patient took ASA 324mg PO and Plavix 75mg PO this morning. He was a patient at [facility] last week for hypertension. Pt denies cough, painful breathing, nausea, SOB, vomiting, OCAMPO, numbness, tingling, and weakness. PMHx: RI (25 years ago), TIA, HTN, CVA. PSHx: cardiac stents, right endarterectomy. SHx: former smoker, no alcohol use, no substance use. FHx: CAD. He has a renal scan scheduled for tomorrow to evaluate possible renal artery stenosis. He sees Dr. Hahn. His PCP is Dr. Romero. Bloodwork was obtained and it shows Hgb 13.5, Hct 39. EKG shows SB with no STEMI. CXR was negative. I consulted with Dr. Sousa, hospitalist , who admits the patient to [facility] at 16:59 for observation. - Diagnoses Provider Diagnoses: Hypertension, Chest pain, unspecified - Provider Notifications Discussed Care Of Patient With: Belen Sousa Time Discussed With Above Provider: 16:59 Instructed by Provider To: Other - Dr. Sousa, hospitalist, admits the patient to [facility]. Discharge - Discharge Plan Condition: Stable Disposition: ADMITTED TO [facility] The documentation as recorded by the Blossom chambers Thomas accurately reflects the service I personally performed and the decisions made by me, Jorge Watt MD.
== END 2017-02-14 11:50 | disposition home or self-care (01) ==
LOC: ED 15:12 → MEDTELE 16:59
PROVIDERS: ADMIT Internal Medicine; ATTEND Internal Medicine
DX: R07.9 Chest pain, unspecified (principal); I25.10 Atherosclerotic heart disease of native coronary artery without angina pectoris; I10 Essential (primary) hypertension; I25.2 Old myocardial infarction; E78.5 Hyperlipidemia, unspecified; E03.9 Hypothyroidism, unspecified; Z86.73 Personal history of transient ischemic attack (TIA), and cerebral infarction without residual deficits; G47.33 Obstructive sleep apnea (adult) (pediatric); F41.9 Anxiety disorder, unspecified; F32.9 Major depressive disorder, single episode, unspecified; Z79.899 Other long term (current) drug therapy; Z79.01 Long term (current) use of anticoagulants; Z79.82 Long term (current) use of aspirin; Z88.1 Allergy status to other antibiotic agents; Z88.5 Allergy status to narcotic agent; R00.1 Bradycardia, unspecified
CPT/HCPCS: 36415; 71010; 78452; 80048; 80053; 80061; 83605; 84484; 85025; 93005; 93017; 94660; 99283; A9270-GY; A9502; G0378; J0280; J1650; J2785

== ENCOUNTER 2017-09-17 18:07 | Emergency (ER) | payer MEDICARE ==
--- OUTSIDE RECORDS SUMMARY | 2017-09-17 18:17 | XMS REPORT ---
:1935 External Reference #:[id number] Author Organization [id number] Address [address] [address] Phone [phone] Care Team Providers Name Role Phone Chriss Romero MD Primary Care Physician Unavailable Payers Type Date Identification Numbers Payment Provider Subscriber Medicare Primary Effective: Policy Number: Medicare Huma Blue 2001 [id number] PayID: [id number] [address] [place] [address] Medigap Part B Policy Number: [id number] 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 Active Onset: 07/13/2011 Coronary arteriosclerosis Yash Nevarez M.D. Active Onset: 10/06/2011 Hyperlipidemia Luma Avila M.D. Onset: 05/02/2012 Hypothyroidism Shauna Chávez, N.P. 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 Active Onset: 02/26/2013 Aortic valve disorder Olaf Hahn M.D. Active Onset: 02/26/2013 Mitral valve disorder Olaf Hahn M.D. Active Onset: 06/23/2013 Edema Olaf Hahn M.D. 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 Member Onset: 02/12/2017 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 Active Onset: 09/10/2017 Renal artery stenosis Chriss Romero M.D.,IGLESIA Active Note: RT Onset: 09/10/2017 Impaired fasting glycaemia Chriss Romero M.D.,FACRajinder Active Onset: 07/21/2011 Electrocardiogram abnormal Olaf Hahn M.D. Inactive Inactive: 01/03/2017 Onset: 06/23/2013 Chest pain Olaf Hahn M.D. Inactive Inactive: 01/03/2017 Onset: 06/23/2013 Heart murmur Olaf Hahn M.D. Inactive Inactive: 01/03/2017 Onset: 07/13/2011 Benign essential hypertension Yash Nevarez M.D. Inactive Inactive: 01/03/2017 Onset: 09/20/2011 Diarrhea Yash Nevarez M.D. 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 Exercise Type/Frequency Exercises regularly General Hx Text 3 children Personal Habits Text Allergies, Adverse Reactions, Alerts Date Description Reaction Status Severity Comments 11/14/2013 Narcotic active after surgery, confusion, hypotention 12/27/2016 Morphine Liposomal active 01/03/2017 Cephalexin active nausea, candidiasis 11/14/2013 NKDA inactive Medications Medication Date Status Form Strength Qnty SIG Indications Ordering Provider Levothyroxine Active Tablets 137mcg 90tabs 1 by mouth Balwinder Terry Sodium 018 every day [facility] Amlodipine Active Tablets 10mg 90tabs 1 by mouth Chriss Besylate 018 every day Aldair Romero M.D.,FACP Cpap Mask And Active Device cpap R06.81 Chriss Supplies 018 supplies - jayne Cabrera M.D.,FACP cushion, tubing, filters, for sleep apnea R06.02 Clopidogrel 03/14/2017 Active Tablets 75mg 90tabs 1 po qd [place] Bisulfate Brissa Soliz Atenolol 02/16/2017 Active Tablets 50mg 90tabs Take 1 Tablet Balwinder Quinteros By Mouth Nick Every Day Brissa,FACRajinder Omeprazole 02/15/2017 Active Capsules 20mg 30caps [address] every day Ordering Provider Ezetimibe 02/06/2017 Active Tablets 10mg 30tabs 1 tab by E7 Qutaybeh S. mouth every 8. jennie Hahn. 5 MGlo Lisinopril 01/31/2017 Active Tablets 10mg 90tabs take 1 tablet Balwinder Quinteros by mouth Nick, every day Brissa,IGLESIA Bupropion HCL 01/30/2017 Active Tablets ER 150mg 30tabs 1 by mouth Other ER (SR) 12HR every day Ordering Provider Flomax Active Capsules 0.4mg 90caps 1 by mouth Chriss Quinteros every day Brissa Romero,IGLESIA Proscar Active Tablets 5mg 30tabs 1 po qd Unknown Trazodone HCL Active Tablets 50mg 90tabs 1 tablet at [place] bedtime as shayna Soliz M.D. Aspirin Active Tablets DR 325mg 1 by mouth Unknown every day Atorvastatin Active Tablets 80mg 90tabs 1 by mouth [place] Calcium every day Brissa Soliz Lorazepam Active Tablets 0.5mg 30tabs 1 tab by Chriss Quinteros mouth every [place], at bedtime Brissa,IGLESIA Aripiprazole Active Tablets 5mg take 1 tablet Unknown by mouth at bedtime Aripiprazole 02/15/2017 - Hx Tablets 2mg 1/2 tab q day Other 09/10/2017 Ordering Provider Amlodipine 02/07/2017 - Hx Tablets 5mg 30tabs Take 1 Tablet Chriss Quinteros Besylate 09/10/2017 By Mouth Nick, Every Day Brissa,IGLESIA Levothyroxine 01/30/2017 - Hx Tablets 150mcg 30tabs 1 by mouth Balwinder Quinteros Sodium 09/10/2017 every day Brissa Romero,IGLESIA Fluoxetine HCL 01/03/2017 - Hx Tablets 20mg 3 by mouth Chriss Quinteros 01/30/2017 every day Brissa Romero,IGLESIA Fluconazole 12/29/2016 - Hx Tablets 150mg 1tabs take one pill Mellissa 01/30/2017 by mouth Brissa Harvey Finasteride 06/05/2014 - Hx Tablets 5mg 90tabs 1 by mouth Other 06/05/2014 every day Ordering Provider Aspirin 81 07/23/2013 - Hx Tablets DR 81mg po qd Other 02/03/2015 Ordering Provider Zoloft 07/15/2013 - Hx Tablets 100mg 1 po qd Yash Guerrero 11/14/2013 Brissa Nevarez Oxycodone HCL 04/08/2013 - Hx Tablets 5mg 60tabs take 1-2 Neymar Marrero, 03/18/2013 tabs po q 4-6 M.D. hours prn pain Voltaren 11/07/2012 - Hx Gel 1% Lrgtube apply 2 grams Neymar Marrero, 03/18/2013 topically M.D. three times a day Percocet 08/29/2012 - Hx Tablets 5-325m 60tabs take 1-2 tabs Neymar Marrero, 03/18/2013 g po q4-6 hours M.D. prn pain Hydrocodone/Jose 05/23/2012 - Hx Tablets 5-325m 60tabs 1-2 po q 4-6 Neymar Marrero taminophen 02/26/2013 g hours prn M.D. pain Percocet 05/06/2012 - Hx Tablets 5-325m 30tabs 1-2 po q4-6h Neymar Marrero 02/26/2013 g prn pain M.D. Ultram 03/26/2012 - Hx Tablets 50mg 40tabs 1 po qid prn Yash Guerrero 05/02/2012 Brissa Nevarez Zolofapril 02/12/2012 - Hx Tablets 50mg 90tabs 1 po qd Yash Guerrero 07/15/2013 Brissa Nevarez 10/06/2011 - Hx Tablets 100mg 1/2 po qd Yash Guerrero 02/12/2012 Brissa Nevarez Levoxyl 07/24/2011 - Hx Tablets 150mcg 90tabs po q day Yash Guerrero 01/30/2017 Brissa Nevarez Zofran 07/10/2011 - Hx Tablets 4mg 20tabs 1 q4-6 hours Yash Guerrero 10/06/2011 prn nausea Brissa Nevarez Levoxyl 01/04/2011 - Hx 15mg 90units po qday Yash Guerrero 07/24/2011 Brissa Nevarez Prilosec 04/26/2010 - Hx Capsules 20mg 90caps 1 po qd Yo 01/04/2011 DR Heydi M.D. Simvastatin 02/14/2010 - Hx Tablets 80mg 90tabs 1 po qhs Yash E. 02/01/2016 Brissa Nevarez Zoloft 05/19/2009 - Hx Tablets 50mg 90tabs 1 po qd Yash E. 10/06/2011 Brissa Nevarez Diltiazem CD 07/10/2008 - Hx Caps ER 180mg 90caps 1 po qd Yash EDana 07/13/2011 24HR Brissa Nevarez Simvastatin 06/22/2008 - Hx Tablets 20mg 90tabs 1 po qd Yash E. 02/14/2010 take with Brissa Nevarez existing Rx of simvastatin 40 mgm Zithromax Z-Jose [place] 03/30/2008 - Hx Tablets 250mg 1Pack as per Yash Guerrero 05/04/2009 directions Brissa Nevarez Atenolol 10/10/2007 - Hx Tablets 25mg 90tabs 1 po qd Yash Guerrero 02/16/2017 Brissa Nevarez Simvastatin 10/10/2007 - Hx Tablets 40mg 90tabs 1 po qhs Yash E. 02/14/2010 (take with Brissa Nevarez simvastatin 40 mgm) Aspirin 03/25/2007 - Hx Tablets 81mg 100tabs 1 PO qd Yash EDana 07/13/2011 Brissa Nevarez Doxycycline 03/25/2007 - Hx Capsules 100mg. 2caps 2 caps po x 1 Yash E. 10/10/2007 dose Brissa Nevarez Levoxyl - Hx Tablets .15 90tabs 1 po qd Yash EDana 01/04/2011 Brissa Nevarez Cardizem [place] - Hx Tablets ER 180mg 90tabs 1 po qd Yash EDana 07/10/2008 24HR Brissa Nevarez Zoloft - Hx Tablets 50mg 90tabs 1 po qd Yash E. 05/04/2009 Brissa Nevarez Zetia - Hx Tablets 10[facility]tabs [facility] MD Kristian Lipitor - Hx Tablets 20mg 1Tab PO [place], 10/10/2007 MD Kristian Omeprazole - Hx Capsules 20mg 90caps 1 po qd Yash Guerrero 02/01/2016 DR Geri M.D. Aggrenox - Hx Caps ER 25-200 180caps 1 Tab bid Yash Guerrero 07/15/2013 12HR mg Brissa Nevarez Lorazepam - Hx Tablets 1mg 60tabs 1 q 6 hours Unknown 10/06/2011 prn Ativan - Hx Tablets 1mg 20tabs 1/2-1 po bid Unknown 10/06/2011 prn Centrum Silver - Hx Tablets 1 po qd Unknown 02/02/2015 Melatonin - Hx Capsules 1mg 1 qd hs prn Unknown 02/26/2013 Aspirin - Hx Tablets 325mg 100tabs 1 po qd Yash Guerrero 05/02/2012 Brissa Nevarez Prednisone - Hx Tablets 5mg 70tabs daily for 12 Unknown 02/26/2013 days Pain Reliever - Hx Tab unk name, prn Unknown 07/15/2013 Potassium - Hx Capsules 20Meq 90caps 1 po qd Unknown Chloride ER 07/15/2013 ER Wellbutrin SR - Hx Tablets ER 150mg 180tabs 1 po bid Unknown 07/15/2013 12HR Buspirone HCL - Hx Tablets 10mg 60tabs 1 po bid Unknown 07/15/2013 Diclofenac - Hx Tablets DR 50mg 60tabs 1 tab by Unknown Sodium DR 11/14/2013 mouth twice a day Finasteride - Hx Unknown 07/15/2013 Tamsulosin HCL - Hx Unknown 07/15/2013 Bupropion - Hx Unknown 07/15/2013 Clopidogrel - Hx Tablets 75mg 90tabs 1 po qd Unknown 03/14/2017 Sertraline HCL - Hx Tablets 50mg 30tabs 1 by mouth Unknown 02/01/2016 every day Fluoxetine HCL - Hx Capsules 60mg 1 by mouth Unknown 01/03/2017 every day Lisinopril - Hx Tablets 5mg 1 by mouth Unknown 01/31/2017 every day Iron Supplement - Hx Tablets 325(65 by mouth q Unknown 02/01/2016 Fe) mg and Vitamin B12 - Hx Tab 1 po q Tues Unknown 02/05/2017 and Prozac - Hx Capsules 10mg 1 by mouth Unknown 01/03/2017 every day Bupropion HCL - Hx Tablets ER 150mg Unknown ER (XL) 02/01/2016 24HR Aripiprazole - Hx Tablets 2mg 1 by mouth Unknown 01/30/2017 every day Amphetamine-Dex - Hx Tablets 15mg one tablet Unknown troamphetamine 01/30/2017 twice daily as needed Aripiprazole - Hx Tablets 2mg 1/2 tablet Unknown 02/15/2017 per day Medications Administered in Office Medication Date Status Form Strength Qnty SIG Indications Ordering Provider Germain Administered Injection Neymar 80MG Vladimir Marrero M.D. Immunizations CPT Code Status Date Vaccine Reaction Lot # [id number] Given 02/07/2017 Influenza Virus Vaccine, 572kt Quadrivalent, Split, Preservative Free 53609 Given 02/07/2017 Pneumococcal Conjugate Vaccine pt tolerated well [id number] Valent For Intramuscular Use Q2037 Given 03/09/2012 Fluvirin Im 3Yrs And Older Q2038 Given 02/17/2011 Fluzone Vaccine [id number] 22575 Given 03/25/2010 Influenza Virus 3Yrs & [id number] Over 15640 Given 03/25/2007 Influenza Virus 3Yrs & Over 34698 Given 03/25/2007 Influenza Virus 3Yrs & Over 04513 Given 10/12/2002 Td (History By Patient) 69614 Given 11/11/2001 Pneumovax (History By Patient) Vital Signs Date Vital Result Comment 09/10/2017 Height 67 inches 5'7" Weight 194.00 lb Heart Rate 73 /min BP Systolic Sitting 142 mmHg BP Diastolic Sitting 70 mmHg BP Systolic Recheck 152 mmHg BP Diastolic Recheck 72 mmHg Body Temperature 97.1 F O2 % BldC Oximetry 98 % BMI (Body Mass Index) 30.4 kg/m2 03/21/2017 Height 70 inches 5'10" Weight 196.00 lb w/ shoes Heart Rate 66 /min BP Systolic Sitting 150 mmHg lue reg cuff BP Diastolic Sitting 58 mmHg lue reg cuff Respiratory Rate 18 /min BMI (Body Mass Index) 28.1 kg/m2 03/01/2017 Weight 193.25 lb Heart Rate 78 /min BP Systolic Sitting 150 mmHg BP Diastolic Sitting 90 mmHg Body Temperature 97.6 F O2 % BldC Oximetry 96 % 02/16/2017 Weight 191.50 lb Heart Rate 68 /min BP Systolic Sitting 140 mmHg BP Diastolic Sitting 80 mmHg BP Systolic Recheck 170 mmHg BP Diastolic Recheck 92 mmHg Body Temperature 97.9 F O2 % BldC Oximetry 97 % 02/12/2017 Height 67 inches 5'7" Weight 184.00 lb Heart Rate 72 /min BP Systolic Sitting 156 mmHg BP Diastolic Sitting 90 mmHg Respiratory Rate 16 /min BMI (Body Mass Index) 28.8 kg/m2 02/07/2017 Weight 194.25 lb Heart Rate 74 /min BP Systolic Sitting 170 mmHg BP Diastolic Sitting 86 mmHg BP Systolic Recheck 180 mmHg BP Diastolic Recheck 82 mmHg Body Temperature 97.9 F O2 % BldC Oximetry 95 % 02/06/2017 BP Systolic Sitting 202 mmHg Lue regular cuff BP Diastolic Sitting 100 mmHg Lue regular cuff 02/06/2017 Height 67 inches 5'7" Weight 198.00 lb with shoes Heart Rate 66 /min BP Systolic Sitting 180 mmHg Rue reg cuff BP Diastolic Sitting 90 mmHg Rue reg cuff BP Systolic Standing 182 mmHg Rue reg cuff BP Diastolic Standing 98 mmHg Rue reg cuff Respiratory Rate 17 /min BMI (Body Mass Index) 31.0 kg/m2 Ejection Fraction 50-55% 01/26/2017-echo 01/31/2017 Weight 202.00 lb w/shoes Heart Rate 88 /min BP Systolic Sitting 150 mmHg BP Diastolic Sitting 78 mmHg BP Systolic Recheck 162 mmHg BP Diastolic Recheck 90 mmHg Body Temperature 97.8 F O2 % BldC Oximetry 96 % 01/24/2017 Height 67 inches 5'7" Weight 194.00 lb Body Temperature 97.4 F Pain Level 0 BMI (Body Mass Index) 30.4 kg/m2 01/03/2017 Height 67 inches 5'7" Weight 194.00 lb Heart Rate 80 /min Respiratory Rate 18 /min Pain Level 0 BMI (Body Mass Index) 30.4 kg/m2 01/03/2017 Height 70 inches 5'10" Weight 198.00 lb Heart Rate 64 /min BP Systolic Sitting 140 mmHg BP Diastolic Sitting 66 mmHg Body Temperature 98.3 F O2 % BldC Oximetry 96 % BMI (Body Mass Index) 28.4 kg/m2 12/27/2016 Height 67 inches 5'7" Weight 194.00 lb Heart Rate 76 /min BP Systolic 115 mmHg BP Diastolic 79 mmHg Respiratory Rate 17 /min Body Temperature 97.8 F Pain Level 0 BMI (Body Mass Index) 30.4 kg/m2 08/22/2016 Height 67 inches 5'7" Weight 191.00 lb with shoes Heart Rate 72 /min BP Systolic Sitting 120 mmHg LA lrg cuff BP Diastolic Sitting 82 mmHg LA lrg cuff BMI (Body Mass Index) 29.9 kg/m2 Ejection Fraction 55% -60% echo 02/29/16 02/02/2016 Height 67 inches 5'7" Weight 194.00 lb w/shoes Heart Rate 70 /min BP Systolic Sitting 140 mmHg LA reg cuff BP Diastolic Sitting 72 mmHg LA reg cuff BMI (Body Mass Index) 30.4 kg/m2 Ejection Fraction 55-60% Echo 10/12/15 08/16/2015 Height 67 inches 5'7" Weight 181.00 lb Pain Level 2 BMI (Body Mass Index) 28.3 kg/m2 06/01/2015 Height 67 inches 5'7" Weight 180.00 lb Heart Rate 56 /min BP Systolic Sitting 132 mmHg BP Diastolic Sitting 72 mmHg Respiratory Rate 14 /min BMI (Body Mass Index) 28.2 kg/m2 05/10/2015 Height 67 inches 5'7" Weight 181.00 lb Pain Level 3 /10 constant worse with activity BMI (Body Mass Index) 28.3 kg/m2 02/03/2015 Height 67 inches 5'7" Weight 181.00 lb BP Systolic Sitting 104 mmHg BP Diastolic Sitting 62 mmHg BP Systolic Standing 104 mmHg BP Diastolic Standing 16 mmHg BMI (Body Mass Index) 28.3 kg/m2 06/05/2014 Height 67 inches 5'7" Weight 184.00 lb Heart Rate 58 /min BP Systolic Sitting 170 mmHg LA, reg BP Diastolic Sitting 72 mmHg LA, reg BMI (Body Mass Index) 28.8 kg/m2 05/04/2014 Height 67 inches 5'7" Weight 176.00 lb Heart Rate 60 /min BMI (Body Mass Index) 27.6 kg/m2 02/10/2014 Height 67 inches 5'7" Weight 176.25 lb Heart Rate 58 /min BP Systolic Sitting 140 mmHg LA reg cuff BP Diastolic Sitting 76 mmHg LA reg cuff Respiratory Rate 12 /min BMI (Body Mass Index) 27.6 kg/m2 01/28/2014 Height 67 inches 5'7" Weight 176.00 lb Heart Rate 64 /min BP Systolic Sitting 132 mmHg BP Diastolic Sitting 68 mmHg Respiratory Rate 15 /min BMI (Body Mass Index) 27.6 kg/m2 11/14/2013 Height 67 inches 5'7" Weight 180.00 lb Heart Rate 64 /min BP Systolic Sitting 162 mmHg left BP Diastolic Sitting 82 mmHg left Respiratory Rate 16 /min BMI (Body Mass Index) 28.2 kg/m2 10/06/2013 Height 67 inches 5'7" Heart Rate 57 /min BP Systolic 156 mmHg BP Diastolic 64 mmHg 07/24/2013 Height 69 inches 5'9" Weight 195.00 lb Heart Rate 64 /min BP Systolic Sitting 138 mmHg BP Diastolic Sitting 70 mmHg BMI (Body Mass Index) 28.8 kg/m2 07/11/2013 Heart Rate 66 /min BP Systolic 156 mmHg BP Diastolic 76 mmHg 07/04/2013 Height 67 inches 5'7" Heart Rate 76 /min BP Systolic Sitting 190 mmHg BP Diastolic Sitting 90 mmHg Respiratory Rate 16 /min 06/23/2013 Height 67 inches 5'7" Weight 197.00 lb Heart Rate 72 /min BP Systolic 140 mmHg BP Diastolic 68 mmHg BMI (Body Mass Index) 30.9 kg/m2 02/26/2013 Height 67 inches 5'7" Weight 193.00 lb Heart Rate 72 /min BP Systolic Sitting 166 mmHg BP Diastolic Sitting 78 mmHg Respiratory Rate 20 /min BMI (Body Mass Index) 30.2 kg/m2 06/07/2012 Height 67 inches 5'7" Weight 187.00 lb Heart Rate 74 /min BP Systolic Sitting 154 mmHg BP Diastolic Sitting 78 mmHg Respiratory Rate 20 /min BMI (Body Mass Index) 29.3 kg/m2 05/02/2012 Height 67 inches 5'7" Weight 183.00 lb Heart Rate 80 /min BP Systolic Sitting 120 mmHg BP Diastolic Sitting 60 mmHg BMI (Body Mass Index) 28.7 kg/m2 03/27/2012 Height 67 inches 5'7" Weight 189.00 lb w/leg brace Heart Rate 60 /min BP Systolic Sitting 148 mmHg BP Diastolic Sitting 68 mmHg BMI (Body Mass Index) 29.6 kg/m2 03/22/2012 Height 67 inches 5'7" Weight 186.00 lb Heart Rate 64 /min BP Systolic Sitting 120 mmHg BP Diastolic Sitting 60 mmHg BMI (Body Mass Index) 29.1 kg/m2 10/19/2011 Height 67 inches 5'7" Weight 180.00 lb Heart Rate 64 /min BP Systolic Sitting 140 mmHg BP Diastolic Sitting 80 mmHg BMI (Body Mass Index) 28.2 kg/m2 10/06/2011 Height 66.75 inches 5'6.75" Weight 182.00 lb Heart Rate 60 /min BP Systolic Sitting 120 mmHg BP Diastolic Sitting 78 mmHg BMI (Body Mass Index) 28.7 kg/m2 09/20/2011 Height 66.75 inches 5'6.75" Weight 179.00 lb Heart Rate 60 /min BP Systolic Sitting 140 mmHg BP Diastolic Sitting 82 mmHg BMI (Body Mass Index) 28.2 kg/m2 07/21/2011 Height 66.75 inches 5'6.75" Weight 184.00 lb Heart Rate 54 /min BP Systolic Sitting 130 mmHg left arm, right arm 124 BP Diastolic Sitting 80 mmHg left arm, right arm 124 BP Systolic Standing 110 mmHg 78 BP Diastolic Standing 70 mmHg 78 BMI (Body Mass Index) 29.0 kg/m2 07/13/2011 Height 66.75 inches 5'6.75" Weight 178.50 lb Heart Rate 56 /min BP Systolic Sitting 120 mmHg BP Diastolic Sitting 66 mmHg BMI (Body Mass Index) 28.2 kg/m2 01/04/2011 Height 68 inches 5'8" Weight 173.00 lb Heart Rate 60 /min BP Systolic Sitting 132 mmHg BP Diastolic Sitting 80 mmHg BMI (Body Mass Index) 26.3 kg/m2 07/06/2010 Weight 179.00 lb Heart Rate 64 /min BP Systolic Sitting 126 mmHg BP Diastolic Sitting 68 mmHg 02/16/2010 Weight 209.00 lb Heart Rate 80 /min BP Systolic 130 mmHg BP Diastolic 88 mmHg BP Systolic Sitting 128 mmHg BP Diastolic Sitting 80 mmHg 02/10/2010 Weight 213.00 lb Heart Rate 60 /min BP Systolic Sitting 148 mmHg BP Diastolic Sitting 88 mmHg 05/04/2009 Weight 203.00 lb Heart Rate 60 /min BP Systolic Sitting 128 mmHg BP Diastolic Sitting 62 mmHg 03/30/2008 Height 67.5 inches 5'7.50" Weight 205.00 lb Heart Rate 64 /min BP Systolic Sitting 132 mmHg BP Diastolic Sitting 86 mmHg Body Temperature 96.7 F BMI (Body Mass Index) 31.6 kg/m2 10/10/2007 Height 67.5 inches 5'7.50" Weight 205.00 lb Heart Rate 68 /min BP Systolic Sitting 132 mmHg BP Diastolic Sitting 74 mmHg BMI (Body Mass Index) 31.6 kg/m2 04/10/2007 Height 67.5 inches 5'7.50" BP Systolic Sitting 150 mmHg BP Diastolic Sitting 88 mmHg 03/25/2007 Height 67.5 inches 5'7.50" Weight 202.00 lb Heart Rate 68 /min BP Systolic Sitting 114 mmHg BP Diastolic Sitting 82 mmHg BMI (Body Mass Index) 31.2 kg/m2 Results Test Date Test Result H/L Range Note Lipid Profile (Trig/Chol/HDL) 08/30/2017 Triglycerides 79 mg/dL 1 Cholesterol 122 mg/dL 2 HDL Cholesterol 43.4 mg/dL 3 LDL Cholesterol 63 mg/dL 4 Basic Metabolic Panel 08/30/2017 Sodium 142 mmol/L 139-145 Potassium 3.6 mmol/L 3.5-5.0 Chloride 104 mmol/L 101-111 Co2 Carbon Dioxide 30 mmol/L 22-32 Anion Gap 8 mmol/L 2-11 Glucose 123 mg/dL High 70-100 Blood Urea Nitrogen 17 mg/dL 6-24 Creatinine 0.94 mg/dL 0.67-1.17 BUN/Creatinine Ratio 18.1 8-20 Calcium 8.8 mg/dL 8.6-10.3 Egfr Non- 77.0 >60 Egfr 99.1 >60 5 Laboratory test finding 08/30/2017 Vitamin B12 310 pg/mL 180-914 6 TSH (Thyroid Stim Horm) 0.15 mcIU/mL Low 0.34-5.60 7 Laboratory test finding 04/17/2017 Renin <0.6 ng/mL/h 8 Laboratory test finding 04/17/2017 Renin <0.6 ng/mL/h 9 Laboratory test finding 02/13/2017 Lactic Acid 1.3 mmol/L 0.5-2.0 10 CBC Auto Diff 02/13/2017 White Blood Count 5.9 10^3/uL 3.5-10.8 Red Blood Count 4.47 10^6/uL 4.0-5.4 Hemoglobin 13.5 g/dL Low 14.0-18.0 Hematocrit 39 % Low 42-52 Mean Corpuscular Volume 88 fL 80-94 Mean Corpuscular Hemoglobin 30 pg 27-31 Mean Corpuscular HGB Conc 34 g/dL 31-36 Red Cell Distribution Width 13 % 10.5-15 Platelet Count 165 10^3/uL 150-450 Mean Platelet Volume 9 um3 7.4-10.4 Abs Neutrophils 3.8 10^3/uL 1.5-7.7 Abs Lymphocytes 1.3 10^3/uL 1.0-4.8 Abs Monocytes 0.7 10^3/uL 0-0.8 Abs Eosinophils 0.2 10^3/uL 0-0.6 Abs Basophils 0 10^3/uL 0-0.2 Abs Nucleated RBC 0 10^3/uL Granulocyte % 64.5 % 38-83 Lymphocyte % 21.2 % Low 25-47 Monocyte % 11.1 % High 1-9 Eosinophil % 2.8 % 0-6 Basophil % 0.4 % 0-2 Nucleated Red Blood Cells % 0.1 Comp Metabolic Panel 02/13/2017 Sodium 140 mmol/L 133-145 Potassium 3.7 mmol/L 3.5-5.0 Chloride 104 mmol/L 101-111 Co2 Carbon Dioxide 31 mmol/L 22-32 Anion Gap 5 mmol/L 2-11 Glucose 109 mg/dL High 70-100 Blood Urea Nitrogen 14 mg/dL 6-24 Creatinine 0.85 mg/dL 0.67-1.17 BUN/Creatinine Ratio 16.5 8-20 Calcium 9.0 mg/dL 8.6-10.3 Total Protein 6.6 g/dL 6.4-8.9 Albumin 3.9 g/dL 3.2-5.2 Globulin 2.7 g/dL 2-4 Albumin/Globulin Ratio 1.4 1-3 Total Bilirubin 0.50 mg/dL 0.2-1.0 Alkaline Phosphatase 52 U/L 34-104 Alt 16 U/L 7-52 Ast 19 U/L 13-39 Egfr Non- 86.7 >60 Egfr 111.5 >60 11 Laboratory test finding 02/13/2017 Troponin-I (TnI) 0.00 ng/mL <0.04 Lipid Profile (Trig/Chol/HDL) 02/13/2017 Triglycerides 80 mg/dL 12 Cholesterol 93 mg/dL 13 HDL Cholesterol 36.8 mg/dL 14 LDL Cholesterol 40 mg/dL 15 Laboratory test finding 02/01/2017 Vitamin B12 310 pg/mL 180-914 16 Lipid Profile (Trig/Chol/HDL) 02/01/2017 Triglycerides 149 mg/dL 17 Cholesterol 178 mg/dL 18 HDL Cholesterol 47.9 mg/dL 19 LDL Cholesterol 100 mg/dL 20 Basic Metabolic Panel 02/01/2017 Sodium 140 mmol/L 133-145 Potassium 3.9 mmol/L 3.5-5.0 Chloride 103 mmol/L 101-111 Co2 Carbon Dioxide 33 mmol/L High 22-32 Anion Gap 4 mmol/L 2-11 Glucose 123 mg/dL High 70-100 Blood Urea Nitrogen 12 mg/dL 6-24 Creatinine 0.78 mg/dL 0.67-1.17 BUN/Creatinine Ratio 15.4 8-20 Calcium 9.2 mg/dL 8.6-10.3 Egfr Non- 95.8 >60 Egfr 123.2 >60 21 Laboratory test finding 01/17/2017 Magnesium 2.2 mg/dL 1.9-2.7 Basic Metabolic Panel 01/17/2017 Sodium 140 mmol/L 133-145 Potassium 3.6 mmol/L 3.5-5.0 Chloride 104 mmol/L 101-111 Co2 Carbon Dioxide 30 mmol/L 22-32 Anion Gap 6 mmol/L 2-11 Glucose 100 mg/dL 70-100 Blood Urea Nitrogen 17 mg/dL 6-24 Creatinine 0.90 mg/dL 0.67-1.17 BUN/Creatinine Ratio 18.9 8-20 Calcium 8.7 mg/dL 8.6-10.3 Egfr Non- 81.2 >60 Egfr 104.4 >60 22 Inr/Protime 02/03/2014 Inr 0.89 0.85-1.06 Basic Metabolic Panel 02/03/2014 Sodium 139 mmol/L 133-145 Potassium 3.8 mmol/L 3.7-5.6 Chloride 102 mmol/L 101-111 Co2 Carbon Dioxide 31 mmol/L 22-32 Anion Gap 6 mmol/L 2-11 Glucose 97 mg/dL 70-100 Blood Urea Nitrogen 13 mg/dL 6-24 Creatinine 0.84 mg/dL 0.67-1.17 BUN/Creatinine Ratio 15.5 8-20 Calcium 8.9 mg/dL 8.6-10.3 Egfr Non- 88.6 >60 Egfr 114.0 >60 23 CBC Auto Diff 02/03/2014 White Blood Count 5.8 10^3/uL 4.8-10.8 Red Blood Count 4.42 10^6/uL 4.0-5.4 Hemoglobin 13.6 g/dL Low 14.0-18.0 Hematocrit 40 % Low 42-52 Mean Corpuscular Volume 91 fL 80-94 Mean Corpuscular Hemoglobin 31 pg 27-31 Mean Corpuscular HGB Conc 34 g/dL 31-36 Red Cell Distribution Width 14 % 10.5-15 Platelet Count 170 10^3/uL 150-450 Mean Platelet Volume 8 um3 7.4-10.4 Abs Neutrophils 3.7 10^3/uL 1.5-7.7 Abs Lymphocytes 1.4 10^3/uL 1.0-4.8 Abs Monocytes 0.6 10^3/uL 0-0.8 Abs Eosinophils 0.2 10^3/uL 0-0.6 Abs Basophils 0 10^3/uL 0-0.2 Abs Nucleated RBC 0 10^3/uL Granulocyte % 62.9 % 38-83 Lymphocyte % 23.9 % Low 25-47 Monocyte % 9.6 % High 1-9 Eosinophil % 2.8 % 0-6 Basophil % 0.8 % 0-2 Nucleated Red Blood Cells % 0.1 Cath Panel 02/03/2014 Activated Partial Thrombo Time 30.6 seconds 24.0- 36.1 Cath Panel 07/11/2013 Activated Partial Thrombo Time 31.3 seconds 24.0- 36.1 24 CBC Auto Diff 07/11/2013 White Blood Count 6.4 10^3/uL 4.8-10.8 Red Blood Count 4.20 10^6/uL 4.0-5.4 Hemoglobin 10.8 g/dL Low 14.0-18.0 Hematocrit 33 % Low 42-52 Mean Corpuscular Volume 78 fL Low 80-94 Mean Corpuscular Hemoglobin 26 pg Low 27-31 Mean Corpuscular HGB Conc 33 g/dL 31-36 Red Cell Distribution Width 16 % High 10.5-15 Platelet Count 185 10^3/uL 150-450 Mean Platelet Volume 9 um3 7.4-10.4 Abs Neutrophils 3.7 10^3/uL 1.5-7.7 Abs Lymphocytes 1.7 10^3/uL 1.0-4.8 Abs Monocytes 0.8 10^3/uL 0-0.8 Abs Eosinophils 0.2 10^3/uL 0-0.6 Abs Basophils 0 10^3/uL 0-0.2 Abs Nucleated RBC 0 10^3/uL Granulocyte % 58.2 % 38-83 Lymphocyte % 26.8 % 25-47 Monocyte % 12.0 % High 1-9 Eosinophil % 2.5 % 0-6 Basophil % 0.5 % 0-2 Nucleated Red Blood Cells % 0 Basic Metabolic Panel 07/11/2013 Sodium 141 mmol/L 133-145 Potassium 3.8 mmol/L 3.5-5.0 Chloride 104 mmol/L 101-111 Co2 Carbon Dioxide 31.0 mmol/L 22-32 Anion Gap 6.0 mmol/L 2-11 Glucose 87 mg/dL 70-100 Blood Urea Nitrogen 21 mg/dL 6-24 Creatinine 0.70 mg/dL 0.50-1.40 BUN/Creatinine Ratio 30.0 High 8-20 Calcium 9.1 mg/dL 8.1-9.9 Egfr Non- 109.4 >60 Egfr 140.6 >60 25 Inr/Protime 07/11/2013 Inr 0.97 0.85-1.06 Laboratory test finding 04/24/2013 Inr 1.08 High 0.85-1.06 26 Laboratory test finding 04/21/2013 Inr 1.24 High 0.85-1.06 27 Urinalysis 04/08/2013 Urine Color Yellow Urine Appearance Clear Urine Specific Madeline 1.020 1.010-1.030 Urine Esterase Trace Negative Urine Nitrate Negative Negative Urine Urobilinogen Negative E.U./dL Negative Urine Protein Negative mg/dL Negative Urine pH 6.5 5-9 Urine Blood Negative Negative Urine Ketones Negative mg/dL Negative Urine Bilirubin Negative Negative Urine Glucose Negative mg/dL Negative Urine Microscopic 04/08/2013 Urine WBC 1+ (<3 /hpf) None Seen Urine RBC 1+ (<3 /hpf) None Seen Bacteria Urine None Seen None Seen CBC No Diff 04/08/2013 White Blood Count 6.3 10^3/uL 4.8-10.8 Red Blood Count 4.37 10^6/uL 4.0-5.4 Hemoglobin 13.0 g/dL Low 14.0-18.0 Hematocrit 40 % Low 42-52 Mean Corpuscular Volume 92 fL 80-94 Mean Corpuscular Hemoglobin 30 pg 27-31 Mean Corpuscular HGB Conc 33 g/dL 31-36 Red Cell Distribution Width 13 % 10.5-15 Platelet Count 180 10^3/uL 150-450 Mean Platelet Volume 9 um3 7.4-10.4 Inr/Protime 04/08/2013 Inr 0.91 0.85-1.06 28 Laboratory test finding 04/08/2013 Activated Partial 30.4 seconds 24.0- 36.1 29 Thrombo Time Basic Metabolic Panel 04/08/2013 Sodium 140 mmol/L 133-145 Potassium 3.7 mmol/L 3.5-5.0 Chloride 104 mmol/L 101-111 Co2 Carbon Dioxide 32.0 mmol/L 22-32 Anion Gap 4.0 mmol/L 2-11 Glucose 108 mg/dL High 70-100 Blood Urea Nitrogen 15 mg/dL 6-24 Creatinine 0.80 mg/dL 0.50-1.40 BUN/Creatinine Ratio 18.8 8-20 Calcium 9.0 mg/dL 8.1-9.9 Egfr Non- 94.0 >60 Egfr 120.9 >60 30 Type & Screen 04/08/2013 Patient Blood Type A Negative Antibody Screen NEGATIVE Laboratory test finding 01/21/2013 Fluid Crystals None Seen 31 Body Fluid C&S 01/21/2013 Body Fluid Cult Gram (SEE NOTE) 32 Stain Body Fluid Cell Count 01/21/2013 Body Fluid Source Synovial Fluid Body Fluid Appearance Cloudy Body Fluid Color Yellow Body Fluid Volume 1.5 mL Body Fluid WBC 67 Body Fluid RBC 2770 Body Fluid Polys 21 Body Fluid Lymph [address] [facility] 22 Body Fluid Eosinophil 2 Body Fluid Total Cells Counted 100 Fluid Reviewed By MD (SEE NOTE) 33 Laboratory test 01/07/2013 C Reactive Protein < 0.5 mg/dL Less than 0.5 finding CBC Auto Diff 01/07/2013 White Blood Count 5.6 10^3/uL 4.8-10.8 Red Blood Count 4.30 10^6/uL 4.0-5.4 Hemoglobin 12.4 g/dL Low 14.0-18.0 Hematocrit 38 % Low 42-52 Mean Corpuscular Volume 89 fL 80-94 Mean Corpuscular Hemoglobin 29 pg 27-31 Mean Corpuscular HGB Conc 33 g/dL 31-36 Red Cell Distribution Width 15 % 10.5-15 Platelet Count 188 10^3/uL 150-450 Mean Platelet Volume 8 um3 7.4-10.4 Abs Neutrophils 3.4 10^3/uL 1.5-7.7 Abs Lymphocytes 1.4 10^3/uL 1.0-4.8 Abs Monocytes 0.6 10^3/uL 0-0.8 Abs Eosinophils 0.1 10^3/uL 0-0.6 Abs Basophils 0 10^3/uL 0-0.2 Abs Nucleated RBC 0 10^3/uL Granulocyte % 60.4 % 38-83 Lymphocyte % 25.8 % 25-47 Monocyte % 10.9 % High 1-9 Eosinophil % 2.4 % 0-6 Basophil % 0.5 % 0-2 Nucleated Red Blood Cells % 0 Laboratory test finding 01/07/2013 Erythrocyte Sed Rate 18 mm/Hr 0-40 CBC With Manual Diff 05/02/2012 White Blood Count 9.7 10^3/uL 4.8-10.8 Red Blood Count 4.11 10^6/uL 4.0-5.4 Hemoglobin 12.5 g/dL Low 14.0-18.0 Hematocrit 38 % Low 42-52 Mean Corpuscular Volume 92 fL 80-94 Mean Corpuscular Hemoglobin 30 pg 27-31 Mean Corpuscular HGB Conc 33 g/dL 31-36 Red Cell Distribution Width 13 % 10.5-15 Platelet Count 201 10^3/uL 150-450 Mean Platelet Volume 9 um3 7.4-10.4 Abs Neutrophils 7.5 10^3/uL 1.5-7.7 Abs Lymphocytes 1.3 10^3/uL 1.0-4.8 Abs Monocytes 0.8 10^3/uL 0-0.8 Abs Eosinophils 0.1 10^3/uL 0-0.6 Abs Basophils 0 10^3/uL 0-0.2 Abs Nucleated RBC 0 10^3/uL Neutrophil % 79.0 % 38-83 Band % 0 % 0-8 Lymphocytes % 16.0 % Low 25-47 Monocytes % 3.0 % 0-13 Eosinophils % 1.0 % 0-6 Basophil % 1.0 % 0-2 Reactive Lymph % 0 % 0-6 Metamyelocytes % 0 % 0-2 Myelocytes % 0 % 0-1 Promyelocytes % 0 % Blast % 0 % RBC Morphology Normal Normal Basic Metabolic Panel 05/02/2012 Sodium 138 mmol/L 133-145 Potassium 3.3 mmol/L Low 3.5-5.0 Chloride 101 mmol/L 101-111 Co2 Carbon Dioxide 32.0 mmol/L 22-32 Anion Gap 5.0 mmol/L 2-11 Glucose 119 mg/dL High 70-100 Blood Urea Nitrogen 15 mg/dL 6-24 Creatinine 0.80 mg/dL 0.50-1.40 BUN/Creatinine Ratio 18.8 8-20 Calcium 8.4 mg/dL 8.1-9.9 Egfr Non- 94.2 >60 Egfr 121.2 >60 34 Laboratory test finding 05/02/2012 Creatine Kinase 110 U/L 0-200 Comp Metabolic Panel 03/23/2012 Sodium 138 mmol/L 133-145 Potassium 3.4 mmol/L Low 3.5-5.0 Chloride 104 mmol/L 101-111 Co2 Carbon Dioxide 30.0 mmol/L 22-32 Anion Gap 4.0 mmol/L 2-11 Glucose 147 mg/dL High 70-100 Blood Urea Nitrogen 18 mg/dL 6-24 Creatinine 0.80 mg/dL 0.50-1.40 BUN/Creatinine Ratio 22.5 High 8-20 Calcium 8.5 mg/dL 8.1-9.9 Total Protein 6.2 GM/DL 6.2-8.1 Albumin 3.3 GM/DL 3.2-5.2 Globulin 2.9 GM/DL 2-4 Albumin/Globulin Ratio 1.1 1-3 Total Bilirubin 0.5 mg/dL 0.1-1.0 35 Alkaline Phosphatase 56 U/L 30-110 Alt 18 U/L 14-54 Ast 22 U/L 12-42 Egfr Non- 94.2 >60 Egfr 121.2 >60 36 Laboratory test finding 03/23/2012 Uric Acid 3.9 mg/dL 2.6-7.2 CBC Auto Diff 03/23/2012 White Blood Count 7.1 10^3/uL 4.8-10.8 Red Blood Count 3.86 10^6/uL Low 4.0-5.4 Hemoglobin 12.2 g/dL Low 14.0-18.0 Hematocrit 36 % Low 42-52 Mean Corpuscular Volume 92 fL 80-94 Mean Corpuscular Hemoglobin 32 pg High 27-31 Mean Corpuscular HGB Conc 34 g/dL 31-36 Red Cell Distribution Width 13 % 10.5-15 Platelet Count 174 10^3/uL 150-450 Mean Platelet Volume 9 um3 7.4-10.4 Abs Neutrophils 5.4 10^3/uL 1.5-7.7 Abs Lymphocytes 0.9 10^3/uL Low 1.0-4.8 Abs Monocytes 0.7 10^3/uL 0-0.8 Abs Eosinophils 0.1 10^3/uL 0-0.6 Abs Basophils 0 10^3/uL 0-0.2 Abs Nucleated RBC 0 10^3/uL Granulocyte % 76.2 % 38-83 Lymphocyte % 12.9 % Low 25-47 Monocyte % 9.5 % High 1-9 Eosinophil % 1.2 % 0-6 Basophil % 0.2 % 0-2 Nucleated Red Blood Cells % 0 Laboratory test finding 03/23/2012 Erythrocyte Sed Rate 41 MM/HR High 0- 40 Laboratory test finding 01/24/2012 TSH 1.02 MIU/ML 0.34-5.60 Basic Metabolic Panel 01/24/2012 Sodium 137 mmol/L 135-145 Potassium 4.2 mmol/L 3.5-5.0 Chloride 103 mmol/L 101-111 Co2 (Carbon Dioxide) 29.0 mmol/L 22-32 Anion Gap 5.0 mmol/L 2-11 37 Glucose 84 mg/dL 70-100 BUN 20 mg/dL 6-24 Creatinine 0.8 mg/dL 0.50-1.40 One Over Creatinine 1.25 BUN/Creatinine Ratio 25.0 High 8-20 Calcium 9.0 mg/dL 8.1-9.9 eGFR Non- 94.2 > 60 eGFR 121.2 > 60 38 Laboratory test finding 01/24/2012 Iron Total 63 g/dL 45-182 Ferritin 92 NG/ML 24-336 Vitamin B12 369 pg/mL 180-914 Folic Acid > 25.8 NG/ML See Below 39 CBC Auto Diff 01/24/2012 White Blood Count 6.3 CUMM 4.8-10.8 Red Cell Count 3.83 CUMM Low 4.6-6.2 Hemoglobin 12.5 g/dL Low 14.0-18.0 Hematocrit 35 % Low 42-52 Mean Corpuscular Volume 92 um3 80-94 Mean Corpuscular Hemoglob 33 pg High 27-31 Mean Corpuscular HGB Cone 36 g/dL 32-36 Redcell Distribution WDTH 13 % 10.5-15 Platelet Count 166 CUMM 150-450 Mean Platelet Volume 8.9 um3 7.4-10.4 Gran % 61.9 % 38-83 Lymph % 25.7 % 20-45 Mononuclear % 10.5 % High 1-9 Eosinophil % 1.7 % 0-6 Basophil % 0.2 % 0-2 Abs Lymphs 1.6 1.0-4.8 Abs Mononuclear 0.7 0-0.8 Absolute Neutrophil Count 3.9 1.5-7.7 Abs Eosinophils 0.1 0-0.6 Abs Basophils 0 0-0.2 Surgical Pathology 12/13/2011 Surgical Pathology <SEE 40 NOTE> CBC Auto Diff 10/19/2011 White Blood Count 6.6 CUMM 4.8-10.8 Red Cell Count 4.25 CUMM Low 4.6-6.2 Hemoglobin 13.8 g/dL Low 14.0-18.0 Hematocrit 39 % Low 42-52 Mean Corpuscular Volume 92 um3 80-94 Mean Corpuscular Hemoglob 32 pg High 27-31 Mean Corpuscular HGB Cone 35 g/dL 32-36 Redcell Distribution WDTH 13 % 10.5-15 Platelet Count 172 CUMM 150-450 Mean Platelet Volume 9.8 um3 7.4-10.4 Gran % 69.1 % 38-83 Lymph % 19.4 % Low 25-47 Mononuclear % 10.0 % High 1-9 Eosinophil % 1.2 % 0-6 Basophil % 0.3 % 0-2 Abs Lymphs 1.3 1.0-4.8 Abs Mononuclear 0.7 0-0.8 Absolute Neutrophil Count 4.5 1.5-7.7 Abs Eosinophils 0.1 0-0.6 Abs Basophils 0 0-0.2 41 Comp Metabolic Panel 10/19/2011 Sodium 140 mmol/L 135-145 Potassium 3.8 mmol/L 3.5-5.0 Chloride 105 mmol/L 101-111 Co2 (Carbon Dioxide) 31.0 mmol/L 22-32 Anion Gap 4.0 mmol/L 2-11 42 Glucose 100 mg/dL 70-100 BUN 20 mg/dL 6-24 Creatinine 0.9 mg/dL 0.50-1.40 One Over Creatinine 1.11 BUN/Creatinine Ratio 22.2 High 8-20 Calcium 8.9 mg/dL 8.1-9.9 Total Protein 6.5 GM/DL 6.2-8.1 Albumin 3.9 GM/DL 3.2-5.2 Globulin 2.6 GM/DL 2-4 Albumin/Globulin Ratio 1.5 1-3 Bilirubin Total 0.6 mg/dL 0.4-1.5 43 Alkaline Phosphatase 54 U/L 39-117 Alt (SGPT) 24 U/L 17-63 Ast (Sgot) 25 U/L 12-42 eGFR Non- 82.3 > 60 eGFR 105.8 > 60 44 Laboratory test finding 10/19/2011 Erythrocyte Sed Rate 13 MM/HR 0-40 C Reactive Protein < 0.5 mg/dL Less Than 0.5 TSH 0.82 MIU/ML 0.34-5.60 Laboratory test 10/03/2011 Stool Culture 45 finding <SEE NOTE> Manual Differential 10/02/2011 Polysegmented 71 % 38-83 Neutrophil Band Neutrophil 1 % 0-8 Lymphocyte 21 % Low 25-47 Monocyte 7 % 0-13 Absolute Neutrophil Count 4.30 RBC Morphology NORMAL Laboratory test finding 10/02/2011 Erythrocyte Sed Rate 10 MM/HR 0-40 Comp Metabolic Panel 10/02/2011 Sodium 138 mmol/L 135-145 Potassium 3.4 mmol/L Low 3.5-5.0 Chloride 100 mmol/L Low 101-111 Co2 (Carbon Dioxide) 29.0 mmol/L 22-32 Anion Gap 9.0 mmol/L 2-11 46 Glucose 70 mg/dL 70-100 BUN 16 mg/dL 6-24 Creatinine 1.0 mg/dL 0.50-1.40 One Over Creatinine 1.00 BUN/Creatinine Ratio 16.0 8-20 Calcium 8.9 mg/dL 8.1-9.9 Total Protein 6.5 GM/DL 6.2-8.1 Albumin 4.0 GM/DL 3.2-5.2 Globulin 2.5 GM/DL 2-4 Albumin/Globulin Ratio 1.6 1-3 Bilirubin Total 0.5 mg/dL 0.4-1.5 47 Alkaline Phosphatase 59 U/L 39-117 Alt (SGPT) 24 U/L 17-63 Ast (Sgot) 28 U/L 12-42 eGFR Non- 72.8 > 60 eGFR 93.7 > 60 48 CBC Auto Diff 10/02/2011 White Blood Count 6.1 CUMM 4.8-10.8 Red Cell Count 4.34 CUMM Low 4.6-6.2 Hemoglobin 13.9 g/dL Low 14.0-18.0 Hematocrit 40 % Low 42-52 Mean Corpuscular Volume 93 um3 80-94 Mean Corpuscular Hemoglob 32 pg High 27-31 Mean Corpuscular HGB Cone 34 g/dL 32-36 Redcell Distribution WDTH 13 % 10.5-15 Platelet Count 190 CUMM 150-450 Mean Platelet Volume 9.5 um3 7.4-10.4 49 Laboratory test finding 01/04/2011 Hemoglobin A1c 5.7 5-7 Laboratory test finding 12/27/2010 Thyroxine 5.9 g/dL 5-12 CBC W/Electronic Diff 12/27/2010 White Blood Count 6.5 CUMM 4.8-10.8 Red Cell Count 4.30 CUMM Low 4.6-6.2 Hemoglobin 13.7 g/dL Low 14.0-18.0 Hematocrit 40 % Low 42-52 Mean Corpuscular Volume 93 um3 80-94 Mean Corpuscular Hemoglob 32 pg High 27-31 Mean Corpuscular HGB Cone 34 g/dL 32-36 Redcell Distribution WDTH 13 % 10.5-15 Platelet Count 180 CUMM 150-450 Mean Platelet Volume 9.2 um3 7.4-10.4 Gran % 60.1 % 38-83 Lymph % 26.8 % 25-47 Mononuclear % 9.1 % High 1-9 Eosinophil % 3.7 % 0-6 Basophil % 0.3 % 0-2 Abs Lymphs 1.7 1.0-4.8 Abs Mononuclear 0.6 0-0.8 Absolute Neutrophil Count 3.9 1.5-7.7 Abs Eosinophils 0.2 0-0.6 Abs Basophils 0 0-0.2 Lipid Panel 12/27/2010 Cholesterol 165 mg/dL Less Than 200 50 Triglyceride 96 mg/dL 40-200 High Density Lipoprotein 43 mg/dL 40-60 51 Cholesterol/HDL Ratio 3.84 AVERAGE 1-4.97 Low Density Lipoprotein 103 mg/dL High Less Than 100 52 CMP Panel 12/27/2010 Albumin 4.1 GM/DL 3.2-5.2 Alt (SGPT) 19 U/L 17-63 Calcium 9.1 mg/dL 8.1-9.9 Co2 (Carbon Dioxide) 32.0 mmol/L 22-32 Chloride 101 mmol/L 101-111 Glucose 92 mg/dL 70-100 Alkaline Phosphatase 55 U/L 39-117 Potassium 3.8 mmol/L 3.5-5.0 Total Protein 6.7 GM/DL 6.2-8.1 Sodium 139 mmol/L 135-145 Ast (Sgot) 24 U/L 12-42 BUN 14 mg/dL 6-24 Anion Gap 6.0 mmol/L 2-11 53 Creatinine 0.80 mg/dL 0.50-1.40 One Over Creatinine 1.20 BUN/Creatinine Ratio 17.5 8-20 Globulin 2.6 GM/DL 2-4 Albumin/Globulin Ratio 1.6 1-3 Bilirubin Total 0.8 mg/dL 0.4-1.5 54 eGFR Non- 94.5 > 60 eGFR 121.5 > [address] Nevarez's Lab Panel 12/27/2010 TSH 0.63 MIU/ML 0.34-5.60 Laboratory test finding 07/06/2010 Hemoglobin A1c 6.3 5-7 Laboratory test finding 04/26/2010 Ast (Sgot) 25 U/L 12-42 Alt (SGPT) 28 U/L 17-63 Basic Metabolic Panel 04/26/2010 Sodium 140 mmol/L 135-145 Potassium 3.8 mmol/L 3.5-5.0 Chloride 103 mmol/L 101-111 Co2 (Carbon Dioxide) 32.0 mmol/L 22-32 Anion Gap 5.0 mmol/L 2-11 56 Glucose 92 mg/dL 70-100 57 BUN 14 mg/dL 6-24 Creatinine 0.90 mg/dL 0.50-1.40 One Over Creatinine 1.10 BUN/Creatinine Ratio 15.6 8-20 Calcium 9.0 mg/dL 8.1-9.9 eGFR Non- 87.9 > 60 eGFR 106.4 > 60 58 Laboratory test finding 04/26/2010 Hemoglobin A1c 6.3 % High Less Than 6.0 59 Lipid Profile 04/26/2010 Triglyceride 83 mg/dL 40-200 (Trig/Chol/HDL) Cholesterol 156 mg/dL Less Than 200 60 High Density Lipoprotein 41 mg/dL 40-60 61 Cholesterol/HDL Ratio 3.80 AVERAGE 1-4.97 Low Density Lipoprotein 98 mg/dL Less Than 100 62 Laboratory test finding 04/13/2010 PSA,Diagnostic 1.48 NG/ML 0-[address] Nevarez's Lab Panel 02/11/2010 TSH 1.55 MIU/ML 0.34-5.60 Comp Metabolic Panel 02/11/2010 Sodium 143 mmol/L 135-145 Potassium 3.8 mmol/L 3.5-5.0 Chloride 105 mmol/L 101-111 Co2 (Carbon Dioxide) 30.0 mmol/L 22-32 Anion Gap 8.0 mmol/L 2-11 64 Glucose 115 mg/dL High 70-100 65 BUN 13 mg/dL 6-24 Creatinine 0.90 mg/dL 0.50-1.40 One Over Creatinine 1.10 BUN/Creatinine Ratio 14.4 8-20 Calcium 8.8 mg/dL 8.1-9.9 Total Protein 6.9 GM/DL 6.2-8.1 Albumin 4.1 GM/DL 3.2-5.2 Globulin 2.8 GM/DL 2-4 Albumin/Globulin Ratio 1.5 1-3 Bilirubin Total 0.7 mg/dL 0.4-1.5 66 Alkaline Phosphatase 54 U/L 39-117 Alt (SGPT) 52 U/L 17-63 Ast (Sgot) 39 U/L 12-42 eGFR Non- 87.9 > 60 eGFR 106.4 > 60 67 Lipid Profile (Trig/Chol/HDL) 02/11/2010 Triglyceride 203 mg/dL High 40- 200 Cholesterol 233 mg/dL High Less Than 200 68 High Density Lipoprotein 42 mg/dL 40-60 69 Cholesterol/HDL Ratio 5.55 AVERAGE High 1-4.97 Low Density Lipoprotein 150 mg/dL High Less Than 100 70 CBC With Electronic Diff 02/11/2010 White Blood Count 6.9 CUMM 4.8-10.8 Red Cell Count 4.59 CUMM Low 4.6-6.2 Hemoglobin 14.8 g/dL 14.0-18.0 Hematocrit 42 % 42-52 Mean Corpuscular Volume 91 um3 80-94 Mean Corpuscular Hemoglob 32 pg High 27-31 Mean Corpuscular HGB Cone 35 g/dL 32-36 Redcell Distribution WDTH 13 % 10.5-15 Platelet Count 209 CUMM 150-450 Mean Platelet Volume 7.9 um3 7.4-10.4 Gran % 57.0 % 38-83 Lymph % 29.5 % 25-47 Mononuclear % 9.6 % High 1-9 Eosinophil % 3.5 % 0-6 Basophil % 0.4 % 0-2 Abs Lymphs 2.0 1.0-4.8 Abs Mononuclear 0.7 0-0.8 Absolute Neutrophil Count 3.9 1.5-7.7 Abs Eosinophils 0.2 0-0.6 Abs Basophils 0 0-0.2 Surgical Pathology 06/08/2009 Surgical Pathology <SEE 71 NOTE> Laboratory test 04/14/2009 PSA,Diagnostic 1.70 NG/ML 0-4 72 finding CBC With Electronic 04/01/2008 White Blood Count 5.3 CUMM 4.8-10.8 73 Diff Red Cell Count 4.68 CUMM 4.6-6.2 73 Hemoglobin 14.7 g/dL 14.0-18.0 73 Hematocrit 41 % Low 42-52 73 Mean Corpuscular Volume 88 um3 80-94 73 Mean Corpuscular Hemoglob 31 pg 27-31 73 Mean Corpuscular HGB Cone 36 g/dL 32-36 73 Redcell Distribution WDTH 13 % 10.5-15 73 Platelet Count 186 CUMM 150-450 73 Mean Platelet Volume 8.0 um3 7.4-10.4 73 Gran % 50.4 % 38-83 73 Lymph % 36.0 % 20-45 73 Mononuclear % 11.2 % High 1-9 73 Eosinophil % 1.9 % 0-6 73 Basophil % 0.5 % 0-2 73 Abs Lymphs 1.9 1.0-4.8 73 Abs Mononuclear 0.6 0-0.8 73 Absolute Neutrophil Count 2.7 1.5-7.7 73 Abs Eosinophils 0.1 0-0.6 73 Abs Basophils 0 0-0.2 73 Comp Metabolic Panel 04/01/2008 Sodium 141 mmol/L 135-145 73 Potassium 3.3 mmol/L Low 3.5-5.0 73 Chloride 106 mmol/L 101-111 73 Co2 (Carbon Dioxide) 31.0 mmol/L 22-32 73 Anion Gap 4.0 mmol/L 2-11 73, 74 Glucose 104 mg/dL High 70-100 73, 75 BUN 15 mg/dL 6-24 73 Creatinine 0.82 mg/dL 0.50-1.40 73 One Over Creatinine 1.20 73 BUN/Creatinine Ratio 18.3 8-20 73 Calcium 9.0 mg/dL 8.1-9.9 73, 76 Total Protein 6.9 GM/DL 6.2-8.1 73 Albumin 3.8 GM/DL 3.2-5.2 73 Globulin 3.1 GM/DL 2-4 73 Albumin/Globulin Ratio 1.2 1-3 73 Bilirubin Total 0.6 mg/dL 0.4-1.5 73 Alkaline Phosphatase 67 U/L 39-117 73 Alt (SGPT) 47 U/L 17-63 73 Ast (Sgot) 34 U/L 12-42 73 Lipid Profile (Trig/Chol/HDL) 04/01/2008 Triglyceride 295 mg/dL High 40- 200 73 Cholesterol 165 mg/dL Less Than 200 73, 77 High Density Lipoprotein 33 mg/dL Low 40-60 73, 78 Cholesterol/HDL Ratio 5.00 AVERAGE High 1-4.97 73 Low Density Lipoprotein 73 mg/dL Less Than 100 73, 79 Thyroxine Free 04/01/2008 Free Thyroxine 0.86 NG/ML 0.61-1.24 73, 80 Laboratory test finding 04/01/2008 TSH 0.93 MIU/ML 0.34-5.60 73 PSA Screening 1.42 NG/ML 0-4 73, 81 Comp Metabolic Panel 04/04/2007 One Over Creatinine 0.90 82 Anion Gap 6.0 mmol/L 2-11 82, 83 Albumin/Globulin Ratio 1.2 1-3 82 Albumin 3.8 GM/DL 3.2-5.2 82 Alkaline Phosphatase 64 U/L 39-117 82 Alt (SGPT) 31 U/L 17-63 82 Ast (Sgot) 27 U/L 12-42 82 BUN 16 mg/dL 6-24 82 Calcium 8.9 mg/dL 8.7-10.2 82 Chloride 102 mmol/L 101-111 82 Co2 (Carbon Dioxide) 33.0 mmol/L High 22-32 82 Globulin 3.1 GM/DL 2-4 82 Glucose 105 mg/dL 70-105 82 Potassium 3.6 mmol/L 3.5-5.0 82 Sodium 141 mmol/L 135-145 82 Bilirubin Total 0.6 mg/dL 0.4-1.5 82 Total Protein 6.9 GM/DL 6.2-8.1 82 BUN/Creatinine Ratio 14.5 8-20 82 Creatinine 1.1 mg/dL 0.5-1.4 82 Lipid Profile 04/04/2007 Cholesterol/HDL Ratio 4.81 AVERAGE 1-4.97 82 (Trig/Chol/HDL) Cholesterol 202 mg/dL High Less Than 200 82, 84 Triglyceride 218 mg/dL High 40-200 82 High Density Lipoprotein 42 mg/dL 40-60 82 Low Density Lipoprotein 116 mg/dL High Less Than 100 82, 85 Laboratory test finding 04/04/2007 PSA Screening 1.58 NG/ML 0-4 82, 86 TSH 1.33 MIU/ML 0.34-5.60 82 CBC W/ Electronic Diff 04/04/2007 White Blood Count 7.2 CUMM 4.8-10.8 Abs Basophils 0 0-0.2 Abs Eosinophils 0.3 0-0.6 Absolute Neutrophil Count 3.9 1.5-7.7 Abs Lymphs 2.2 1.0-4.8 Abs Mononuclear 0.8 0-0.8 Basophil % 0.4 % 0-2 Hematocrit 42 % 42-52 Hemoglobin 14.5 g/dL 14.0-18.0 Eosinophil % 3.8 % 0-6 Gran % 54.3 % 38-83 Lymph % 29.8 % 20-45 Mean Corpuscular HGB Cone 35 g/dL 32-36 Mean Corpuscular Hemoglob 31 pg 27-31 Mean Corpuscular Volume 91 um3 80-94 Mean Platelet Volume 8.1 um3 7.4-10.4 Mononuclear % 11.7 % High 1-9 Platelet Count 216 CUMM 150-450 Red Cell Count 4.62 CUMM 4.6-6.2 Redcell Distribution WDTH 13 % 10.5-15 1 Desirable: <150 Borderline High: 150-199 High: 200-499 Very High: >500 2 Desirable: <200 Borderline High: 200-239 High: >239 3 Low: <40 Desirable: 40-60 High: >60 4 Desirable: <100 Near Optimal: 100-129 Borderline High: 130-159 High: 160-189 Very High: >189 5 Because ethnic data is not always readily available, this report includes an eGFR for both -Americans and non- Americans. The National Kidney Disease Education Program (NKDEP) does not endorse the use of the MDRD equation for patients that are not between the ages of 18 and 70, are , have extremes of body size, muscle mass, or nutritional status, or are non- or non-. According to the National Kidney Foundation, irrespective of diagnosis, the stage of the disease is based on the level of kidney function: Stage Description GFR(mL/min/1.73 m(2)) 1 Kidney damage with normal or decreased GFR 90 2 Kidney damage with mild decrease in GFR 60-89 3 Moderate decrease in GFR 30-59 4 Severe decrease in GFR 15-29 5 Kidney failure <15 (or dialysis) 6 Normal Range 180 to 914 Indeterminate Range 145 to 180 Deficient Range <145 7 FASTING 10 HOUR 8 REFERENCE VALUE (Peripheral vein specimen) Na-deplete, upright: Mean: 5.9 Range: 2.9-10.8 Na-replete, upright: Mean: 1.0 Range: < or=0.6-3.0 ADDITIONAL INFORMATION Testing performed by Liquid Chromatography-Tandem Mass Spectrometry (LC-MS/MS). This test was developed and its performance characteristics determined by [facility] in a manner consistent with CLIA requirements. This test has not been cleared or approved by the [place].S. Food and Drug Administration. Test Performed by: [facility] - [address] [id number] 9 REFERENCE VALUE (Peripheral vein specimen) Na-deplete, upright: Mean: 5.9 Range: 2.9-10.8 Na-replete, upright: Mean: 1.0 Range: < or=0.6-3.0 ADDITIONAL INFORMATION Testing performed by Liquid Chromatography-Tandem Mass Spectrometry (LC-MS/MS). This test was developed and its performance characteristics determined by [facility] in a manner consistent with CLIA requirements. This test has not been cleared or approved by the U.S. Food and Drug Administration. Test Performed by: [facility] [place] [address] [address] [facility] Severe Sepsis and Septic Shock Management Bundle Measure requires all lactic acids initially measuring >2.0 mmol/L be repeated. 11 Because ethnic data is not always readily available, this report includes an eGFR for both -Americans and non- Americans. The National Kidney Disease Education Program (NKDEP) does not endorse the use of the MDRD equation for patients that are not between the ages of 18 and 70, are , have extremes of body size, muscle mass, or nutritional status, or are non- or non-. According to the National Kid[employer], irrespective of diagnosis, the stage of the disease is based on the level of kidney function: Stage Description GFR(mL/min/1.73 m(2)) 1 Kidney damage with normal or decreased GFR 90 2 Kidney damage with mild decrease in GFR 60-89 3 Moderate decrease in GFR 30-59 4 Severe decrease in GFR 15-29 5 Kidney failure <15 (or dialysis) 12 Desirable <150 Borderline high 150-199 High 200-499 Very High >500 13 Desirable <200 Borderline high 200-239 High >239 14 Low <40 Desirable: 40-60 High: >60 15 Desirable: <100 mg/dL Near Optimal: 100-129 mg/dL Borderline High: 130-159 mg/dL High: 160-189 mg/dL Very High: >189 mg/dL 16 Normal Range 180 to 914 Indeterminate Range 145 to 180 Deficient Range <145 17 Desirable <150 Borderline high 150-199 High 200-499 Very High >500 18 Desirable <200 Borderline high 200-239 High >239 19 Low <40 Desirable: 40-60 High: >60 20 Desirable: <100 mg/dL Near Optimal: 100-129 mg/dL Borderline High: 130-159 mg/dL High: 160-189 mg/dL Very High: >189 mg/dL 21 Because ethnic data is not always readily available, this report includes an eGFR for both -Americans and non- Americans. The National Kidney Disease Education Program (NKDEP) does not endorse the use of the MDRD equation for patients that are not between the ages of 18 and 70, are , have extremes of body size, muscle mass, or nutritional status, or are non- or non-. According to the National Kidney Foundation, irrespective of diagnosis, the stage of the disease is based on the level of kidney function: Stage Description GFR(mL/min/1.73 m(2)) 1 Kidney damage with normal or decreased GFR 90 2 Kidney damage with mild decrease in GFR 60-89 3 Moderate decrease in GFR 30-59 4 Severe decrease in GFR 15-29 5 Kidney failure <15 (or dialysis) 22 Because ethnic data is not always readily available, this report includes an eGFR for both -Americans and non- Americans. The National Kidney Disease Education Program (NKDEP) does not endorse the use of the MDRD equation for patients that are not between the ages of 18 and 70, are , have extremes of body size, muscle mass, or nutritional status, or are non- or non-. According to the National Kidney Foundation, irrespective of diagnosis, the stage of the disease is based on the level of kidney function: Stage Description GFR(mL/min/1.73 m(2)) 1 Kidney damage with normal or decreased GFR 90 2 Kidney damage with mild decrease in GFR 60-89 3 Moderate decrease in GFR 30-59 4 Severe decrease in GFR 15-29 5 Kidney failure <15 (or dialysis) 23 Because ethnic data is not always readily available, this report includes an eGFR for both -Americans and non- Americans. The National Kidney Disease Education Program (NKDEP) does not endorse the use of the MDRD equation for patients that are not between the ages of 18 and 70, are , have extremes of body size, muscle mass, or nutritional status, or are non- or non-. According to the National Kidney Foundation, irrespective of diagnosis, the stage of the disease is based on the level of kidney function: Stage Description GFR(mL/min/1.73 m(2)) 1 Kidney damage with normal or decreased GFR 90 2 Kidney damage with mild decrease in GFR 60-89 3 Moderate decrease in GFR 30-59 4 Severe decrease in GFR 15-29 5 Kidney failure <15 (or dialysis) 24 labs to be drawn between July 09 - 2013 25 Because ethnic data is not always readily available, this report includes an eGFR for both -Americans and non- Americans. The National Kidney Disease Education Program (NKDEP) does not endorse the use of the MDRD equation for patients that are not between the ages of 18 and 70, are , have extremes of body size, muscle mass, or nutritional status, or are non- or non-. According to the National Kidney Foundation, irrespective of diagnosis, the stage of the disease is based on the level of kidney function: Stage Description GFR(mL/min/1.73 m(2)) 1 Kidney damage with normal or decreased GFR 90 2 Kidney damage with mild decrease in GFR 60-89 3 Moderate decrease in GFR 30-59 4 Severe decrease in GFR 15-29 5 Kidney failure <15 (or dialysis) 26 Please note the change in the INR reference range effective 13. 27 Please note the change in the INR reference range effective 13. 28 Please note the change in the INR reference range effective 13. 29 AA 04/16/13 30 Because ethnic data is not always readily available, this report includes an eGFR for both -Americans and non- Americans. The National Kidney Disease Education Program (NKDEP) does not endorse the use of the MDRD equation for patients that are not between the ages of 18 and 70, are , have extremes of body size, muscle mass, or nutritional status, or are non- or non-. According to the National Kidney Foundation, irrespective of diagnosis, the stage of the disease is based on the level of kidney function: Stage Description GFR(mL/min/1.73 m(2)) 1 Kidney damage with normal or decreased GFR 90 2 Kidney damage with mild decrease in GFR 60-89 3 Moderate decrease in GFR 30-59 4 Severe decrease in GFR 15-29 5 Kidney failure <15 (or dialysis) 31 LEFT KNEE Synovial (Joint) Fluid 32 RUN DATE: 01/25/13 [facility] LAB LIVE PAGE 1 RUN TIME: 1010 [address] [address] Specimen Inquiry Name: HUMA BLUE : [address]: Neymar Marrero MD Acct: [id number] Unit: [id number] AGE: 77 Location: [facility] Re01/21/13 SEX: M Status: REG REF SPEC: [id number] ANJUM: 01/21/13 [facility] DR: Neymar Marrero MD REQ: [id number] RECD: 01/21/13 STATUS: COMP _ SOURCE: JOINT FLUI SPDESC:KNEE LEFT ORDERED: BF Cult/GS COMMENTS: LEFT KNEE Procedure Result Verified Site Body Fluid Gram Stain Final 01/21/13- 1229 ML 1+ Polys No Organisms Seen Preparation By Direct Smear Body Fluid Culture Final 01/25/13- 1010 ML No Growth Day 4 END OF REPORT * ML=Testing performed at Main Lab DEPARTMENT OF PATHOLOGY, [address] [place] [address] Jeb Reyes M.D. Director [facility] Permit #[id number] 33 Slide and differential reviewed. No bacteria, blasts or other malignant cells seen. REVIEWED BY JEB REYES MD 34 Because ethnic data is not always readily available, this report includes an eGFR for both -Americans and non- Americans. The National Kidney Disease Education Program (NKDEP) does not endorse the use of the MDRD equation for patients that are not between the ages of 18 and 70, are , have extremes of body size, muscle mass, or nutritional status, or are non- or non-. According to the National Kidney Foundation, irrespective of diagnosis, the stage of the disease is based on the level of kidney function: Stage Description GFR(mL/min/1.73 m(2)) 1 Kidney damage with normal or decreased GFR 90 2 Kidney damage with mild decrease in GFR 60-89 3 Moderate decrease in GFR 30-59 4 Severe decrease in GFR 15-29 5 Kidney failure <15 (or dialysis) 35 A metabolite of Naproxen, O-desmethylnaproxen, has been shown to interfere with the Jendrassik-Lindsay method for measuring total bilirubin. Samples from patients who have taken Naproxen have shown spurious elevation in total bilirubin levels. 36 Because ethnic data is not always readily available, this report includes an eGFR for both -Americans and non- Americans. The National Kidney Disease Education Program (NKDEP) does not endorse the use of the MDRD equation for patients that are not between the ages of 18 and 70, are , have extremes of body size, muscle mass, or nutritional status, or are non- or non-. According to the National Kidney Foundation, irrespective of diagnosis, the stage of the disease is based on the level of kidney function: Stage Description GFR(mL/min/1.73 m(2)) 1 Kidney damage with normal or decreased GFR 90 2 Kidney damage with mild decrease in GFR 60-89 3 Moderate decrease in GFR 30-59 4 Severe decrease in GFR 15-29 5 Kidney failure <15 (or dialysis) 37 Anion gap measurement may be of limited value in the presence of any alkalosis, especially in a combined acid base disorder. . 38 Because ethnic data is not always readily available, this report includes an eGFR for both -Americans and non- Americans. The National Kidney Disease Education Program (NKDEP) does not endorse the use of the MDRD equation for patients that are not between the ages of 18 and 70, are , have extremes of body size, muscle mass, or nutritional status, or are non- or non-. According to the National Kidney Foundation, irrespective of diagnosis, the stage of the disease is based on the level of kidney function: Stage Description GFR(mL/min/1.73 m(2)) 1 Kidney damage with normal or decreased GFR 90 2 Kidney damage with mild decrease in GFR 60-89 3 Moderate decrease in GFR 30-59 4 Severe decrease in GFR 15-29 5 Kidney failure <15 (or dialysis) 39 Please note: New reference range, effective 05/25/11 NORMAL REFERENCE RANGE: GREATER THAN 4.1 NG/ML 40 ---- RUN DATE: 12/15/11 [facility] NMI LIVE PAGE 1 RUN TIME: 1323 Specimen Inquiry RUN USER: INTERFACE -- Name: HUMA BULE Status: REG REF Re12/13/11 Age/Sex: 76/M Unit#: [id number] Location: [facility] : 37 -- Specimen: [id number] Spec Date:12/13/11 Dr: Clayton Damon MD Spec Type: SURGICAL P Received:12/14/11-1001 Copies to: Yash Nevarez III, MD SPECIMEN 1) BIOPSY DISTAL TRANSVERSE COLON POLYP 2) RANDOM SIGMOID COLON BIOPSIES 3) BIOPSY SIGMOID NODULE HISTORY PRE-OP DIAGNOSIS: 2) Rule out microscopic colitis POST-OP DIAGNOSIS: To cecum with ease - terminal ileum normal; 2 nodules distal and proximal sigmoid; diverticulosis CLINICAL INFORMATION: Change in bowels - diarrhea 2-3x per day with no bl ood; history of polyps; family history of colorectal carcinoma GROSS DESCRIPTION 1) The specimen is received in formalin labelled Huma Wayne, Biopsy Distal Transverse Colon Polyp, and consists of two fragments of brown tissue each measuring 0.4 x 0.4 x 0.3 cm. Submitted entirely, one cassette labelled 1. 2) The specimen is received in formalin labelled Huma Blue, Random Sigmoid Colon Biopsies, and consists of two fragments of yellow tissue each measuring 0.3 x 0.2 x 0.2 cm. Submitted entirely, one cassette labelled 2. 3) The specimen is received in formalin labelled Huma Blue, Biopsy Sigmoid Nodule, and consists of one fragment of tovar-brown tissue measuring 0.3 x 0.3 x 0.2 cm. Submitted entirely, one cassette labelled 3. DIAGNOSIS 1) Distal transverse colon, biopsy: A. Tubular adenoma. B. No high grade dysplasia or malignancy. 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 3) Sigmoid nodule, biopsy: Inflamed hyperplastic polyp (see comment). -- DEPARTMENT OF PATHOLOGY, [address] [place] [address] [facility] Permit #[id number] Jeb Reyes M.D. Director Iona Denise M.D. Process Control Programmer florentin -- -- RUN DATE: 12/15/11 [facility] NMI LIVE PAGE 2 RUN TIME: 1323 Specimen Inquiry RUN USER: INTERFACE -- Name: HUMA BLUE Accapril#: [id number] Status: REG REF Re12/13/11 Age/Sex: 76/M Unit#: [id number] Location: [facility] 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 Part 3 (sigmoid nodule) shows colonic mucosa with again evidence of collagenous colitis and with hyperplastic change. Signed Electronically by: IONA DENISE 12/15/11 1323 -- -- DEPARTMENT OF PATHOLOGY, [address] [place] [address] [facility] Permit #[id number] Jeb Reyes M.D. Director Iona Denise M.D. Process Control Programmer Dir florentin -- 41 Lymphopenia % 42 Anion gap measurement may be of limited value in the presence of any alkalosis, especially in a combined acid base disorder. . 43 A metabolite of Naproxen, O-desmethylnaproxen, has been shown to interfere with the Jendrassik-Lindsay method for measuring total bilirubin. Samples from patients who have taken Naproxen have shown spurious elevation in total bilirubin levels. 44 Because ethnic data is not always readily available, this report includes an eGFR for both -Americans and non- Americans. The National Kidney Disease Education Program (NKDEP) does not endorse the use of the MDRD equation for patients that are not between the ages of 18 and 70, are , have extremes of body size, muscle mass, or nutritional status, or are non- or non-. According to the National Kidney Foundation, irrespective of diagnosis, the stage of the disease is based on the level of kidney function: Stage Description GFR(mL/min/1.73 m(2)) 1 Kidney damage with normal or decreased GFR 90 2 Kidney damage with mild decrease in GFR 60-89 3 Moderate decrease in GFR 30-59 4 Severe decrease in GFR 15-29 5 Kidney failure <15 (or dialysis) 45 RUN DATE: 10/10/11 [facility] NMI LIVE PAGE 1 RUN TIME: 1455 Specimen Inquiry RUN USER: INTERFACE Name: HUMA BLUE Accapril#: [id number] Status: REG REF Re10/03/11 Age/Sex: 76/M Unit#: [id number] Location: [facility] : 37 SPEC #: [id number] ANJUM: 10/03/11 STATUS: COMP REQ #: [id number] RECD: 10/03/11 [facility] DR[facility]: STOOL ENTR: 10/03/[address] [facility] DR: [facility]: ORDERED: STOOL CULTURE, O P (FULL), O P: GLO/Eva KEATING AMP DNA, STL LACTOF QUERIES: MEDENT REQUISITION # [id number] ACT WKST: P 10/07/11 #1 Procedure Result Verified Site > STOOL CULT SENSITIVITY Final -1222 ML NEGATIVE FOR THE ENTERIC PATHOGENS - SALMONELLA, SHIGELLA, AEROMONAS, PLESIOMONAS AND YERSINIA. VIBRIO AND E. COLI 0157 NOT ROUTINELY TESTED FOR IN A STOOL CULTURE. PLEASE SUBMIT SAMPLE WITH SPECIFIC REQUEST FOR DESIRED ORGANISM(S). > STOOL SPECIMEN DESCRIPTION Final -1243 ML STOOL COLOR BROWN STOOL FORM SEMI-FORMED STOOL CONSISTENCY SOFT > CAMPYLOBACTER CULTURE Final -1222 ML NO GROWTH OF CAMPYLOBACTER AFTER 48 HOURS > SHIGA TOXIN 1 AND 2 (EHEC) Final -1216 ML SHIGA TOXIN 1 NEGATIVE BY IMMUNOCHROMATOGRAPHIC ASSAY SHIGA TOXIN 2 NEGATIVE BY IMMUNOCHROMATOGRAPHIC ASSAY > OVA PARASITE CONCEN - FULL Final -1455 ML NO OVA PARASITES OBSERVED BY GAVIN ACETATE CONCENTRATION. NO CYSTS /OR TROPHOZOITES OBSERVED BY TRICHROME STAIN. CRYPTOSPORIDIUM, CYCLOSPORA AND MICROSPORIDIUM TESTING NOT ROUTINELY PERFORMED WITH FULL OVA AND PARASITE ANALYSIS. > O P: GIARDIA/CRYPTO SCREEN Final -1217 ML GIARDIA ANTIGEN NEGATIVE BY IMMUNOASSAY CRYPTOSPORIDIUM ANTIGEN NEGATIVE BY IMMUNOASSAY DEPARTMENT OF PATHOLOGY, [address] [place] [address] [facility] Permit #[id number] Brissa Cummings M.D. [employer]room [employer] Optician RUN DATE: 10/10/11 [facility] NMI LIVE PAGE 2 RUN TIME: 1455 Specimen Inquiry RUN USER: INTERFACE Name: HUMA BLUE Status: REG REF Re10/03/11 Age/Sex: 76/M Unit#: [id number] Location: [facility] : 37 -- -- CONTINU ED Procedure Result Verified Site O P: GIARDIA/CRYPTO SCREEN Final (continued) 10/04/11- 1217 Giardia and cryptosporidium antigen testing performed by immunoassay. If patient is immunocompromised or has traveled to or is from a developing country, a full ova and parasite exam with microscopic (OPMIC) is recommended. All samples will be held one month in case full ova and parasite testing is requested. Contact the Microbiology Department at [phone]. TEST LIMITATIONS: As with all diagnostic procedures, the results obtained should be used in conjunction with other clinical information available the physician. Negative results can occur in samples containing antigen below lower limits of detection of the assay. The use of colonic washes, aspirates or other diluted sample types has not been established and could affect the performance of the assay. Stool samples contaminated with an oily or particulate base (eg. Barium, mineral oil etc.) could interfere with the test and are not recommended. > C. DIFFICILE AMPLIFIED DNA Final -1444 ML C. DIFFICILE AMPLIF DNA NEGATIVE: NO TOXIGENIC C. DIFFICILE DETECTED TEST LIMITATIONS: Assay does not distinguish between viable and non-viable organisms. Test results are to be used in conjunction with information available from the patient clinical evaluation and other diagnostic procedures. Two distinct groups have been identified that can harbor C. difficile asymptomatically at very high rates. Colonization at rates up to 50% and higher have been reported in infants and rates up to 32% in cystic fibrosis patients. > FECAL LACTOFERRIN (STOOL WBC) Final -1456 ML FECAL LACTOFERRIN POSITIVE BY IMMUNOASSAY DEPARTMENT OF PATHOLOGY, [address] [place] [id number] [facility] Permit #[id number] Jeb Reyes M.D. Director Iona Denise M.D. [employer]room Shop Optician RUN DATE: 10/10/11 [facility] NMI LIVE PAGE 3 RUN TIME: 1455 Specimen Inquiry RUN USER: INTERFACE Name: HUMA BLUE Status: REG REF Re10/03/11 Age/Sex: 76/M Unit#: [id number] Location: [facility] : 37 -- -- CONTINU ED Procedure Result Verified Site FECAL LACTOFERRIN (STOOL WBC) Final (continued) 10/03/111455 TEST LIMITATIONS: Assay detects elevated levels of lactoferrin released from fecal leukocytes as a marker of intestinal inflammation. The test may not be appropriate in immunocompromised persons. Fecal samples from breast fed infants should not be used with this assay. - [facility] Permit #[id number] [facility] [employer] [place] [address] DEPARTMENT OF PATHOLOGY, [address] [place] [address] [facility] Permit #[id number] Jeb Reyes M.D. Director Iona Denise M.D. Benchroom Shop Optician 46 Anion gap measurement may be of limited value in the presence of any alkalosis, especially in a combined acid base disorder. . 47 A metabolite of Naproxen, O-desmethylnaproxen, has been shown to interfere with the Jendrassik-Lindsay method for measuring total bilirubin. Samples from patients who have taken Naproxen have shown spurious elevation in total bilirubin levels. 48 Because ethnic data is not always readily available, this report includes an eGFR for both -Americans and non- Americans. The National Kidney Disease Education Program (NKDEP) does not endorse the use of the MDRD equation for patients that are not between the ages of 18 and 70, are , have extremes of body size, muscle mass, or nutritional status, or are non- or non-. According to the National Kidney Foundation, irrespective of diagnosis, the stage of the disease is based on the level of kidney function: Stage Description GFR(mL/min/1.73 m(2)) 1 Kidney damage with normal or decreased GFR 90 2 Kidney damage with mild decrease in GFR 60-89 3 Moderate decrease in GFR 30-59 4 Severe decrease in GFR 15-29 5 Kidney failure <15 (or dialysis) 49 Imm. NE 1 50 CHOLESTEROL INTERPRETATION: Desirable: Less than 200 MG/DL Borderline-High Risk: 200-239 MG/DL High-Risk: 240 MG/DL and over 51 HDL INTERPRETATION: Undesirable: High Risk: Less than 40 MG/DL Desirable: Low Risk: Greater than 60 MG/DL 52 LDL INTERPRETATION: Low Risk Optimal Level: LDL Less than 100 MG/DL Near or Above Optimal: LDL 100-129 MG/DL Borderline High Risk: LDL 130-159 MG/DL High Risk: LDL 160-189 MG/DL Very High Risk: LDL Greater than 189 MG/DL 53 Anion gap measurement may be of limited value in the presence of any alkalosis, especially in a combined acid base disorder. . 54 A metabolite of Naproxen, O-desmethylnaproxen, has been shown to interfere with the Jendrassik-Fallston method for measuring total bilirubin. Samples from patients who have taken Naproxen have shown spurious elevation in total bilirubin levels. 55 Because ethnic data is not always readily available, this report includes an eGFR for both -Americans and non- Americans. The National Kidney Disease Education Program (NKDEP) does not endorse the use of the MDRD equation for patients that are not between the ages of 18 and 70, are , have extremes of body size, muscle mass, or nutritional status, or are non- or non-. According to the National Kidney Foundation, irrespective of diagnosis, the stage of the disease is based on the level of kidney function: Stage Description GFR(mL/min/1.73 m(2)) 1 Kidney damage with normal or decreased GFR 90 2 Kidney damage with mild decrease in GFR 60-89 3 Moderate decrease in GFR 30-59 4 Severe decrease in GFR 15-29 5 Kidney failure <15 (or dialysis) 56 Anion gap measurement may be of limited value in the presence of any alkalosis, especially in a combined acid base disorder. . 57 Note change in reference range as of 01/23/08. The change was based on recommendations from the [place] [employer]. 58 Because ethnic data is not always readily available, this report includes an eGFR for both -Americans and non- Americans. The National Kidney Disease Education Program (NKDEP) does not endorse the use of the MDRD equation for patients that are not between the ages of 18 and 70, are , have extremes of body size, muscle mass, or nutritional status, or are non- or non-. According to the National Kidney Foundation, irrespective of diagnosis, the stage of the disease is based on the level of kidney function: Stage Description GFR(mL/min/1.73 m(2)) 1 Kidney damage with normal or decreased GFR 90 2 Kidney damage with mild decrease in GFR 60-89 3 Moderate decrease in GFR 30-59 4 Severe decrease in GFR 15-29 5 Kidney failure <15 (or dialysis) 59 THERAPEUTIC TARGET FOR THE TREATMENT OF DIABETES MELLITUS PATIENTS IS <7% HBA1C, AND IN SELECTIVE PATIENTS <6.0%. PLEASE REFER TO [place] [employer] DIABETIC CARE GUIDELINES FOR FURTHER INFORMATION. 60 CHOLESTEROL INTERPRETATION: Desirable: Less than 200 MG/DL Borderline-High Risk: 200-239 MG/DL High-Risk: 240 MG/DL and over 61 HDL INTERPRETATION: Undesirable: High Risk: Less than 40 MG/DL Desirable: Low Risk: Greater than 60 MG/DL 62 LDL INTERPRETATION: Low Risk Optimal Level: LDL Less than 100 MG/DL Near or Above Optimal: LDL 100-129 MG/DL Borderline High Risk: LDL 130-159 MG/DL High Risk: LDL 160-189 MG/DL Very High Risk: LDL Greater than 189 MG/DL 63 * SERUM LEVELS OF PSA MEASURED USING THE Razer ACCESS HYBRITECH IMMUNOASSAY SHOULD NOT BE INTERPRETED ABSOLUTE EVIDENCE OF THE PRESENCE OR ABSENCE OF DISEASE. THE PSA VALUE SHOULD BE USED IN CONJUNCTION WITH OTHER PERTINENT CLINICAL DIAGNOSTIC PROCEDURES. 64 Anion gap measurement may be of limited value in the presence of any alkalosis, especially in a combined acid base disorder. . 65 Note change in reference range as of 01/23/08. The change was based on recommendations from the [place] [employer]. 66 A metabolite of Naproxen, O-desmethylnaproxen, has been shown to interfere with the Jendrassik-Lindsay method for measuring total bilirubin. Samples from patients who have taken Naproxen have shown spurious elevation in total bilirubin levels. 67 Because ethnic data is not always readily available, this report includes an eGFR for both -Americans and non- Americans. The National Kidney Disease Education Program (NKDEP) does not endorse the use of the MDRD equation for patients that are not between the ages of 18 and 70, are , have extremes of body size, muscle mass, or nutritional status, or are non- or non-. According to the National Kidney Foundation, irrespective of diagnosis, the stage of the disease is based on the level of kidney function: Stage Description GFR(mL/min/1.73 m(2)) 1 Kidney damage with normal or decreased GFR 90 2 Kidney damage with mild decrease in GFR 60-89 3 Moderate decrease in GFR 30-59 4 Severe decrease in GFR 15-29 5 Kidney failure <15 (or dialysis) 68 CHOLESTEROL INTERPRETATION: Desirable: Less than 200 MG/DL Borderline-High Risk: 200-239 MG/DL High-Risk: 240 MG/DL and over 69 HDL INTERPRETATION: Undesirable: High Risk: Less than 40 MG/DL Desirable: Low Risk: Greater than 60 MG/DL 70 LDL INTERPRETATION: Low Risk Optimal Level: LDL Less than 100 MG/DL Near or Above Optimal: LDL 100-129 MG/DL Borderline High Risk: LDL 130-159 MG/DL High Risk: LDL 160-189 MG/DL Very High Risk: LDL Greater than 189 MG/DL 71 ---- RUN DATE: 06/10/09 [facility] NMI LIVE PAGE 1 RUN TIME: 1526 Specimen Inquiry RUN USER: INTERFACE -- Name: HUMA BLUE Accapril#: [id number] Status: REG REF Re06/08/09 Age/Sex: 73/M Unit#: [id number] Location: END : 36 -- Specimen: [id number] SOUT Spec Date: 06/08/[address]: Clayton liang MD Spec Type: SURGICAL P Received: 06/09/094302 Copies to: Yash Nevarez III, MD SPECIMEN RECTAL POLYP AT 3 CM. HISTORY POST-OP DIAGNOSIS: Rectal polyp; hiatal hernia, dysphagia CLINICAL INFORMATION: Dysphagia for solids; positive family history for c olorectal carcinoma (father) GROSS DESCRIPTION The specimen is received in formalin labelled Huma Blue, Rectal Polyp at 3 cm., and consists of a tovar-brown tissue without a stalk measuring 0.5 x 0.5 x 0.3 cm. Submitted entirely, one cassette. DIAGNOSIS Colon, rectum, 3 cm., biopsy: Inflamed hyperplastic polyp. Signed Electronically by: JEB REYES MD 06/10/09 1524 -- -- DEPARTMENT OF PATHOLOGY, [address] [place] [address] [facility] Permit #[id number] Jeb Reyes M.D. Director Iona Denise M.D. Process Control Programmer Dir florentin -- 72 * SERUM LEVELS OF PSA MEASURED USING THE Razer ACCESS HYBRITECH IMMUNOASSAY SHOULD NOT BE INTERPRETED ABSOLUTE EVIDENCE OF THE PRESENCE OR ABSENCE OF DISEASE. THE PSA VALUE SHOULD BE USED IN CONJUNCTION WITH OTHER PERTINENT CLINICAL DIAGNOSTIC PROCEDURES. 73 PATIENT MAY HAVE RESULTS PER DOCTOR'S AUTHORIZATION. Questions regarding this report should be directed to your doctor. FASTING 74 Anion gap measurement may be of limited value in the presence of any alkalosis, especially in a combined acid base disorder. . 75 Note change in reference range as of 01/23/08. The change was based on recommendations from the [place] [employer]. 76 Please note change in reference range effective 07 . 77 CHOLESTEROL INTERPRETATION: Desirable: Less than 200 MG/DL Borderline-High Risk: 200-239 MG/DL High-Risk: 240 MG/DL and over 78 HDL INTERPRETATION: Undesirable: High Risk: Less than 40 MG/DL Desirable: Low Risk: Greater than 60 MG/DL 79 LDL INTERPRETATION: Low Risk Optimal Level: LDL Less than 100 MG/DL Near or Above Optimal: LDL 100-129 MG/DL Borderline High Risk: LDL 130-159 MG/DL High Risk: LDL 160-189 MG/DL Very High Risk: LDL Greater than 189 MG/DL 80 PLEASE NOTE NEW REFERENCE RANGES. 81 * SERUM LEVELS OF PSA MEASURED USING THE [employer] ACCESS HYBRITECH IMMUNOASSAY SHOULD NOT BE INTERPRETED ABSOLUTE EVIDENCE OF THE PRESENCE OR ABSENCE OF DISEASE. THE PSA VALUE SHOULD BE USED IN CONJUNCTION WITH OTHER PERTINENT CLINICAL DIAGNOSTIC PROCEDURES. 82 FASTING 83 Anion gap measurement may be of limited value in the presence of any alkalosis, especially in a combined acid base disorder. . 84 Classification: Borderline High . 85 CALCULATED LDL APPROXIMATES THE VALUE OF A DIRECT LDL MEASUREMENT. Classification: Near or above optimal . 86 * SERUM LEVELS OF PSA MEASURED USING THE [employer] ACCESS HYBRITECH IMMUNOASSAY SHOULD NOT BE INTERPRETED ABSOLUTE EVIDENCE OF THE PRESENCE OR ABSENCE OF DISEASE. THE PSA VALUE SHOULD BE USED IN CONJUNCTION WITH OTHER PERTINENT CLINICAL DIAGNOSTIC PROCEDURES. Procedures Date CPT Code Description Status Comment 02/14/2017 27228 Treadmill Interp/Report Only Completed 02/14/2017 67936 Stress Test Supervsn W/Out Completed I/R 02/06/2017 47608 EKG Tracing & Completed Interpretation 02/06/2017 13402 EKG Tracing & Completed Interpretation 01/25/2017 15695 ECHO Transthorasic Realtime Completed 2D W Doppler & Color Flow Hosp 12/27/2016 79809 Closed TX Phalanx Completed finger/thumb shaft w/o manipulation 09/01/2016 41671 ECHO Transthorasic Realtime Completed 2D W Doppler & Color Flow Hosp 08/22/2016 76928 EKG Tracing & Completed Interpretation 02/29/2016 03586 ECHO Transthoracic, Real-Time Completed 2D With Doppler And Color Flow 02/02/2016 30770 EKG Tracing & Completed Interpretation 10/11/2014 19530 ECHO Transthorasic Realtime Completed 2D W Doppler & Color Flow Hosp 06/05/2014 21185 EKG Tracing & Completed Interpretation 05/04/2014 57273 Xray Knee 3 Views Completed 05/04/2014 55813 Rad Exam; Knee, Ap&L Completed 02/06/2014 23886 Intravascular Blood Flow Completed Velocity 02/06/2014 61288 Left Heart Cath. Incl S/I Completed Coronaries, Angio S/I V Gram If Done 01/27/2014 01550 ECHO Transthoracic, Real-Time Completed 2D With Doppler And Color Flow 01/22/2014 81008 ECHO Stress Test Incl Perf Completed Contiuous ekg Monitoring W/Phys Superv 01/22/2014 28006 ECHO Stress Test Incl Perf Completed Contiuous ekg Monitoring W/Phys Superv 11/14/2013 60033 EKG Tracing & Completed Interpretation 10/06/2013 49541 Xray Knee 3 Views Completed 07/24/2013 75912 EKG Tracing & Completed Interpretation 07/19/2013 06830 EKG, Interpretation Only Completed 07/18/2013 70525 Percutaneous Transcatheter Completed Placement Of Intracoronary Stent 07/18/2013 46002 EKG, Interpretation Only Completed 07/18/2013 92713 Left Health Catheterization Completed W/Inj For Left Ventriculography,S&I 07/18/2013 07619 Cath PLMT&NJX L Completed Ventriculog Img S&I 07/18/2013 33325 Left Heart Cath. Incl S/I Completed Coronaries, Angio S/I V Gram If Done 07/18/2013 44889 Cardiac Cath,LT Hrtmincl Completed Intraprocedural Ink LT Ventricul Mammary 07/07/2013 Mammogram Completed 07/04/2013 26485 ECHO Transthorasic Realtime Completed 2D W Doppler & Color Flow Hosp 07/04/2013 04705 EKG Tracing & Completed Interpretation 07/02/2013 45412 Treadmill Interp/Report Only Completed 07/02/2013 99284 Stress Test Supervsn W/Out Completed I/R 06/23/2013 18488 EKG Tracing & Completed Interpretation 05/30/2013 86750 Rad Exam; Knee Comp Completed 04/24/2013 00996 Xray Knee 3 Views Completed 04/16/2013 74863 Revision TKA W Or W/O Completed Allograft;Femoral & Entire Tibial Component 04/16/2013 55253 Revision TKA W Or W/O Completed Allograft;Femoral & Entire Tibial Component 02/26/2013 10450 EKG Tracing & Completed Interpretation 01/29/2013 81513 ECHO Transthoracic, Real-Time Completed 2D With Doppler And Color Flow 01/21/2013 53490 Inject/Drain Joint/Bursa Completed Major 11/07/2012 80098 Xray Knee 3 Views Completed 11/07/2012 03055 Rad Exam; Knee, Ap&L Completed 08/14/2012 17614 TKR Total Knee Replacement Completed 08/14/2012 52730 TKR Total Knee Replacement Completed 06/08/2012 96208 Treadmill Interp/Report Only Completed 06/08/2012 44916 Stress Test Supervsn W/Out Completed I/R 06/08/2012 85499 EKG, Interpretation Only Completed 05/15/2012 14062 Arthroscopy,Knee,Meniscectomy Completed Media & Lateral 05/15/2012 26359 Arthroscopy,Knee,Meniscectomy Completed Media & Lateral 05/02/2012 83745 EKG Tracing & Completed Interpretation 04/16/2012 72808 Inject/Drain Joint/Bursa Completed Major 12/13/2011 Colonoscopy Completed 11/30/2011 85841 Polysomnography Sleep Staging Completed 4+ Parameters W/Cpap 09/28/2011 53152 Stress Test Supervsn W/Out Completed I/R 09/28/2011 79771 Treadmill Interp/Report Only Completed 09/06/2011 70902 Holter Monitoring 24 HR New Completed 09/04/2011 64023 ECHO Stress Test Incl Perf Completed Contiuous ekg Monitoring W/Phys Superv 07/21/2011 69229 EKG Tracing & Completed Interpretation 07/04/2011 06313 Color Flow Doppler/Interp Completed & Reprt 07/04/2011 43486 Pulse Completed Wave/Continuous-Interp.RPT 07/04/2011 07029 ECHO Transthorasic Realtime Completed 2D W Doppler & Color Flow Hosp 01/04/2011 58489 EKG Tracing & Completed Interpretation 03/25/2010 25690 Admin Of Inj Completed 12/15/2009 Diabetic Retinal Eye Exam Completed Document: 12/15/09 - Consult Ophthalmology 06/08/2009 Colonoscopy Completed 08/05/2003 Colonoscopy Completed 03/31/1999 Colonoscopy Completed Encounters Type Date Location Provider CPT E/M Dx Office Visit 03/21/2017 1:30p [facility] Aleksandr Simon M.D. 57089 I10 Of [facility] E78.5 Office Visit 03/01/2017 8:20a [facility] Chriss Romero, 10412 I70.1 - Clement Centeno M.D.,FACP I10 Office Visit 02/16/2017 3:40p [facility] Chriss Romero, 12075 R07.9 - Clement Centeno M.D.,FACP I25.110 I15.0 Office Visit 02/13/2017 2:33p [facility], DEBORAH Townsend 87397 R07.9 Hospitalists G47.33 I25.110 I10 Office Visit 02/12/2017 2:30p [facility] Javon Jared, 66904 Z86.73 Services Of Katerina Brumfield I10 E78.5 Z79.02 Office Visit 02/07/2017 2:00p [facility] Chriss Romero, 72114 I15.0 - Clement Centeno M.D.,FACP Z23 Office Visit 02/06/2017 1:30p [facility] DEBORAH Damon 80939 G45.8 I25.10 I10 E78.5 Office Visit 01/31/2017 1:40p [facility] Chriss Romero, 40681 G45.8 - Tbwallace Centeno M.D.,FACP I10 E78.5 Office Visit 01/26/2017 2:08p [facility] Rodriguezjigar Jared, 00114 G45.9 M.D. I10 Z79.02 Office Visit 01/26/2017 12:56p [facility], Enoc Figueroa M.D. 12647 G45.8 Hospitalists E78.5 I25.10 I10 Office Visit 01/25/2017 2:03p [facility] Javon Coleman, 19335 G45.9 M.D. I10 Z79.02 Office Visit 01/25/2017 12:55p [facility], Roby Shaver, 83069 I63.9 Hospitalists N.PDana E78.5 I25.10 I10 Office Visit 01/03/2017 10:30a [facility] Internal Chriss Romero, 20805 I25.10 Medicine - [address] Brissa,FACP S62.627D E03.9 I10 I63.411 F33.1 Office Visit 09/01/2016 11:17a [facility], Kecia Snowden, DERMATOLOGY TECHNICIAN 87623 R42 Hospitalists Z86.73 I25.10 G47.33 Office Visit 08/31/2016 11:16a [facility] Percy Meier, 94843 R42 Assoc, [place] Hospitalists Z86.73 I25.10 G47.33 Office Visit 08/22/2016 3:00p [facility] Qutaybeh S. Jovani, 74121 I35.0 M.D. I10 I25.10 I34.0 Office Visit 02/02/2016 2:00p [facility] Qutaybeh S. Maghaydah, 93832 I10 M.D. I25.10 I34.0 I35.0 Office Visit 08/16/2015 8:45a [facility] Temi Rivera M.D. 58383 Z96.652 C.M.A. Office Visit 06/01/2015 10:45a [facility] Quirino Giles, 90651 I63.511 Services Of Katerina Brumfield Office Visit 05/10/2015 10:45a [facility] Temi Rivera M.D. 95183 Z47.1 C.M.ADana Z96.652 Office Visit 02/03/2015 10:00a [facility] Quirino Giles, 04527 434.91 M.D. Office Visit 10/28/2014 9:47a [facility] [place] [address] 434.91 Office Visit 10/11/2014 3:00p [facility] Quirino Giles, 91662 434.91 M.D. 435.9 414.01 Office Visit 10/11/2014 7:08p [facility],pc Rosaleenicolas Gandara, 46943 434.91 Hospitalists M.DDana 401.9 244.9 Office Visit 10/10/2014 2:34p [facility] Quirino Giles, 61019 434.91 M.D. 435.9 Office Visit 10/10/2014 7:07p [facility] Loc Tasha, 64393 434.91 Assoc,pc Hospitalists M.DDana 401.9 244.9 272.4 Office Visit 10/09/2014 7:06p [facility],pc Enoc Figueroa M.D. 73850 434.91 Hospitalists 401.9 244.9 272.4 Office Visit 06/05/2014 3:20p [facility] Qutaybeh S. Ralphah, 30097 414.01 M.DDana V45.82 401.1 424.0 Office Visit 05/04/2014 11:30a [facility] Temi Rivera M.D. 28256 715.96 C.M.A. 719.46 Office Visit 02/10/2014 5:00p [facility] Qutaybeh S. Maghaydah, 91495 414.01 M.D. V45.82 401.1 Office Visit 02/07/2014 10:03a [facility] Qutaybeh S. Maghaydah, 20708 414.9 M.D. Office Visit 02/06/2014 3:22p [facility] Qutaybeh S. Maghaydah, 48258 794.39 M.D. 794.31 414.9 Office Visit 01/28/2014 1:20p [facility] Qutaybeh S. Jovani, 28067 414.01 M.D. 424.0 424.1 V45.82 Office Visit 01/22/2014 11:30a [facility] Olaf S. Jovani, 64874 414.01 M.D. 424.0 424.1 V45.82 Office Visit 11/14/2013 8:20a [facility] Olaf S. Jovani, 83434 414.01 M.D. 424.0 397.0 424.1 401.0 272.2 Office Visit 10/06/2013 10:00a [facility] Temi Rivera M.D. 76378 719.46 C.M.A. 715.96 Office Visit 07/24/2013 3:40p [facility] Olaf S. Jovani, 97239 414.01 M.D. 424.0 397.0 424.1 785.2 Office Visit 07/18/2013 11:30a [facility] Jefferysugey S. Jovani, 21623 786.50 M.D. 786.05 794.39 Office Visit 07/04/2013 4:00p [facility] Olaf S. Jovani, 57300 414.01 M.D. 786.50 424.0 397.0 424.1 Office Visit 07/02/2013 9:30a [facility] Olaf S. Jovani, 21649 786.50 M.D. 414.9 Office Visit 06/23/2013 1:40p [facility] Olaf S. Jovani, 71214 414.01 M.D. 786.50 424.0 397.0 424.1 785.2 782.3 Office Visit 02/26/2013 3:00p [facility] Olaf S. Jovani, 11771 414.01 M.D. 412 424.1 424.0 Office Visit 01/21/2013 9:15a [facility] Neymar Marrero M.D. 91960 996.78 C.M.A. 715.96 V43.65 996.77 Office Visit 01/07/2013 9:30a [facility] Neymar Marrero M.D. 15301 996.78 C.M.A. Office Visit 08/17/2012 1:23p [facility], Patricia Whelan, N.P. 84305 276.8 Hospitalists 780.97 Office Visit 06/08/2012 11:51a [facility], Enoc Figueroa M.D. 00173 786.51 Hospitalists 401.9 272.2 285.9 Office Visit 06/07/2012 11:50a [facility], Cassidy Moeller, 24541 786.51 Hospitalists M.DDana 401.9 272.2 285.9 Office Visit 06/07/2012 2:00p [facility] Olaf Hahn 69824 414.01 Brissa 401.1 434.11 Office Visit 05/02/2012 8:30a [facility] Shauna Chávez, N.P. 45819 836.0 - Zo 786.03 414.01 401.1 434.11 272.2 V72.84 244.9 Office Visit 04/29/2012 8:30a [facility] Neymar Marrero M.D. 89505 836.0 C.M.A. Office Visit 04/16/2012 2:30p [facility] Neymar Marrero M.D. 36429 715.36 C.M.A. 727.49 719.06 Office Visit 03/27/2012 3:40p [facility] Yash Nevarez, 23568 729.5 - Zo Brumfield Office Visit 03/22/2012 10:20a [facility] Yash Nevarez, 64319 719.46 - Zo Brumfield 729.5 Office Visit 10/19/2011 10:20a [facility] Yash Nevarez, 70468 787.91 - Zo Brumfield Office Visit 10/06/2011 10:40a [facility] Olaf SDana 20937 414.01 Brissa Hahn 401.1 272.4 424.0 424.1 Office Visit 09/20/2011 2:20p [facility] Yash Nevarez 09388 787.91 [facility] 09/04/2011 2:30p [facility], 58430 401.1 M.D. 414.01 794.31 Office Visit 07/21/2011 10:00a [facility], 57601 401.1 M.D. 272.2 414.01 794.31 424.0 424.1 434.11 Office Visit 07/13/2011 10:00a [facility], 07740 434.11 - [place] Brissa 401.1 272.2 414.01 Office Visit 01/04/2011 10:00a DO Not Use [facility], 20554 V70.0 [facility].D. 401.1 414.01 272.0 790.21 244.9 724.1 530.81 Office Visit 07/06/2010 10:20a DO Not Use [facility], 84786 401.1 [facility].D. 414.01 272.0 790.21 Office Visit 02/16/2010 3:00p DO Not Use [facility], 82184 401.1 [facility].D. 272.2 414.01 244.9 Office Visit 02/10/2010 11:00a DO Not Use [facility], 83523 V72.81 [facility].D. 401.1 272.2 414.01 244.9 Office Visit 05/04/2009 2:00p DO Not Use [facility], 61887 401.1 [facility].D. 272.2 414.01 244.9 311 787.20 Office Visit 03/30/2008 1:45p [facility], 05390 465.9 [facility] M.D. Office Visit 10/10/2007 10:00a [facility], 64418 272.0 [facility] M.D. 414.01 401.1 Office Visit 04/10/2007 10:45a [facility], 52081 272.2 [facility] 244.9 796.2 414.01 Office Visit 03/25/2007 2:45p [facility], 72188 272.0 [facility] 414.01 V04.81 Plan of Care Future Appointment(s):03/13/2018 10:00 am - ROBERTH Crow at [facility] Internal Medicine - [address]09/10/2017 - Chriss Romero M.D.,FACPZ00.01 Encounter for general adult medical exam w abnormal findingsComments:Advised flu vaccine in fall. Routine Health Maintenance up to date. Depression screen: on fileADL screen: negativeAdvance directives: HCP discussed, form to be obtainedCognitive impairment screen: negative Reviewed [facility] DM/HM form.Follow up:Print DM/HM for [id number] Essential (primary) hypertensionComments:Your blood pressure is elevated. Increased Amlodipine to 10mg daily from 5mg daily. Continue low salt diet.Aerobic exercise 30 minutes 5 times per week should improve blood pressure.Goals:Blood pressure goal <140/90 in general. Blood pressure goal & lt;150/90 in people older than 75. Blood pressure goal <130/85 in diabetic patients. Goal BMI is less than 25.I25.110 [place] heart disease of [place] art w unstable ang pctrsComments:Cholesterol on recent bloodwork is on target. Continue current dosage of medications.I70.1 Atherosclerosis of renal arteryComments:Discussed visits with Dr. Simon. Follow up with Dr. Brizuela03.9 Hypothyroidism, unspecifiedComments:Decreased dosage of L-thyroxine to 137mcg daily from 150mcg daily. Take medication on an empty stomach.F33.1 Major depressive disorder, recurrent, moderateComments:Continue current treatment for now. I will give Dr. Aparicio a call and contact you with any updates to treatment plan.
[2017-09-17 19:50] LABS: ABS Basophils 0 10^3/ul (0-0.2); ABS Eosinophils 0.1 10^3/ul (0-0.6); ABS Lymphocytes 1.5 10^3/ul (1.0-4.8); ABS Monocytes 0.6 10^3/ul (0-0.8); ABS Neutrophils 4.3 10^3/ul (1.5-7.7); ABS Nucleated RBC 0 10^3/ul; Eosinophil % 2.1 % (0-6); Hematocrit 40 % (42-52); Hemoglobin 13.5 g/dl (14.0-18.0); Lymphocyte % 22.3 % (25-47); Mean Corpuscular HGB Conc 34 g/dl (31-36); Mean Corpuscular Hemoglobin 30 pg (27-31); Mean Corpuscular Volume 87 fL (80-94); Mean Platelet Volume 8.7 um3 (7.4-10.4); Nucleated Red Blood Cells % 0.1; Platelet Count 158 10^3/ul (150-450); Red Blood Count 4.56 10^6/ul (4.0-5.4); Red Cell Distribution Width 14 % (10.5-15); White Blood Count 6.5 10^3/ul (3.5-10.8)
[2017-09-17 20:08] LABS: EGFR Non-African American 85.4 (>60)
[2017-09-17 21:22] VITALS: BP 152/69
--- NOTE | 2017-09-17 21:32 | ED ---
Jackie Null Edward, scribed for Yakov Holcomb MD on 09/17/17 at 1833 . Hypertension - HPI Summary HPI Summary: 82 y/o male BIBA c/o one episode of high blood pressure earlier today, checked at home. The episode was at 16:30 this afternoon. No aggravating and alleviating factors. Episode resolved spontaneously. Pt had a lengthy conversation with his brother before the episode. Denies pain, nausea. Currently the pt states that he is asymptomatic. PMHx CVA. PCP Nick. - History of Current Complaint Chief Complaint: EDHypertension Stated Complaint: ELEVATED BP Time Seen by Provider: 09/17/17 18:27 Hx Obtained From: Patient Onset/Duration: Resolved Timing: Intermittent Aggravating Factor(s): Nothing Alleviating Factor(s): Nothing Associated Signs & Symptoms: Negative - Allergies/Home Medications Allergies/Adverse Reactions: Allergies Allergy/AdvReac Type Severity Reaction Status Date / Time cephalexin Allergy Unknown Verified 09/17/17 18:40 Reaction Details morphine Allergy Hallucinati Verified 09/17/17 18:40 ons Home Medications: Home Medications ARIPiprazole TAB* [Abilify TAB*] 5 mg PO BEDTIME 09/17/17 [History Confirmed ] Aspirin TAB* [Aspirin 325 MG TAB*] 325 mg PO QAM 09/17/17 [History Confirmed ] Atenolol TAB* [Tenormin TAB* 25 MG] 25 mg PO QAM 09/17/17 [History Confirmed ] Atorvastatin* [Lipitor*] 80 mg PO DAILY 09/17/17 [History Confirmed 09/17/17] Clopidogrel TAB* [Plavix TAB*] 75 mg PO QAM 09/17/17 [History Confirmed 09/17/17 ] Ezetimibe TAB* [Zetia TAB*] 10 mg PO DAILY 09/17/17 [History Confirmed 09/17/17] Finasteride TAB* [Proscar TAB*] 5 mg PO DAILY 09/17/17 [History Confirmed ] LORazepam TAB(*) [Ativan 0.5 MG TAB (*)] 0.5 mg PO BEDTIME PRN 09/17/17 [ History Confirmed 09/17/17] Levothyroxine TAB* [Synthroid TAB*] 137 mcg PO DAILY 09/17/17 [History Confirmed 09/17/17] Lisinopril TAB* [Prinivil TAB*] 10 mg PO DAILY 09/17/17 [History Confirmed 09/17] Omeprazole CAP* [Prilosec CAP* 20 MG] 20 mg PO QAM 09/17/17 [History Confirmed 09/17/17] Tamsulosin CAP* [Flomax CAP*] 0.4 mg PO DAILY 09/17/17 [History Confirmed ] amLODIPine TAB* [Norvasc 5 mg TAB*] 5 mg PO QAM 09/17/17 [History Confirmed ] traZODone TAB* [Desyrel TAB*] 50 mg PO BEDTIME 09/17/17 [History Confirmed 09/17] PMH/Surg Hx/FS Hx/Imm Hx Previously Healthy: No Endocrine/Hematology History: Reports: Hx Anticoagulant Therapy - plavix and ASA , Hx Thyroid Disease, Hx Anemia - SLIGHT Denies: Hx Diabetes Cardiovascular History: Reports: Hx Angina, Hx Coronary Artery Disease, Hx Hypercholesterolemia, Hx Hypertension, Hx Myocardial Infarction Denies: Hx Congestive Heart Failure, Hx Pacemaker/ICD, Other Cardiovascular Problems/Disorders Respiratory History: Reports: Hx Sleep Apnea - has CPAP Denies: Hx Asthma, Hx Chronic Obstructive Pulmonary Disease (COPD), Other Respiratory Problems/Disorders GI History: Reports: Hx Gastroesophageal Reflux Disease, Hx Ulcer - Gastric, Other GI Disorders - ? gerd History: Reports: Other Problems/Disorders - ENLARGE PROSTATE Denies: Hx Renal Disease Musculoskeletal History: Reports: Hx Arthritis - LEFT KNEE, Hx Osteoporosis - LEFT KNEE, Other Musculoskeletal History - knee surgery Sensory History: Reports: Hx Cataracts, Hx Contacts or Glasses, Hx Hearing Aid, Other Sensory Impairments - left visual cut after CVA Opthamlomology History: Reports: Hx Cataracts, Hx Contacts or Glasses, Other Sensory Impairments - left visual cut after CVA Neurological History: Reports: Hx CVA - stroke 2011 and 10/2014 - Lt deficits, Other Neuro Impairments/Disorders - CVA Denies: Hx Dementia, Hx Seizures Psychiatric History: Reports: Hx Anxiety - ONCE IN A WHILE Denies: Hx Panic Disorder, Hx Substance Abuse - Surgical History Surgery Procedure, Year, and Place: RIGHT ENDAREDECTOMY; CARDIAC STENTS PLACED; RIGHT SHOULDER ROTATOR CUFF REPAIR; PARTIAL THYROIDECTOMY; LEFT KNEE REPLACEMENT ; RIGHT BUNIONECTOMY; RIGHT KNEE ARTHROSCOPE; Hx Anesthesia Reactions: No Infectious Disease History: No Infectious Disease History: Reports: Hx Shingles - 30 years ago Denies: Hx Clostridium Difficile, Hx Hepatitis, Hx Human Immunodeficiency Virus (HIV), Hx of Known/Suspected MRSA, Hx Tuberculosis, Hx Known/Suspected VRE , Hx Known/Suspected VRSA, History Other Infectious Disease, Traveled Outside the [place] in Last 30 Days - Family History Known Family History: Positive: Cardiac Disease - Social History Alcohol Use: None Hx Substance Use: No Substance Use Type: Reports: None Hx Tobacco Use: Yes Smoking Status (MU): Former Smoker Type: Cigarettes Amount Used/How Often: 3 packs a day 39 years ago Have You Smoked in the Last Year: No Review of Systems Constitutional: Negative Eyes: Negative ENT: Negative Cardiovascular: Negative Respiratory: Negative Gastrointestinal: Negative Genitourinary: Negative Musculoskeletal: Negative Skin: Negative Neurological: Negative Psychological: Normal All Other Systems Reviewed And Are Negative: Yes Physical Exam - Summary Physical Exam Summary: Appearance: The patient is well-nourished in no acute distress and in no acute pain. Skin: The skin is warm and dry and skin color reflects adequate perfusion. HEENT: The head is normocephalic and atraumatic. The pupils are equal and reactive. The conjunctivae are clear and without drainage. Nares are patent and without drainage. Mouth reveals moist mucous membranes and the throat is without erythema and exudate. The external ears are intact. The ear canals are patent and without drainage. The tympanic membranes are intact. Neck: the neck is supple with full range of motion and non-tender. There are no carotid bruits. There is no neck vein distension. Respiratory: Chest is non-tender. Lungs are clear to auscultation and breath sounds are symmetrical and equal. Cardiovascular: Heart is regular rate and rhythm. There is a soft systolic ejection murmur. There is no peripheral edema and pulses are symmetrical and equal. Abdomen: The abdomen is soft and non-tender. There are normal bowel sounds heard in all four quadrants and there is no organomegaly palpated. Musculoskeletal: There is no back tenderness noted. Extremities are non-tender with full range of motion. There is good capillary refill. There is pitting edema in the ankles L worse than R. Neurological: Patient is alert and oriented to person, place and time. The patient has symmetrical motor strength in all four extremities. Cranial nerves are grossly intact. Deep tendon reflexes are symmetrical and equal in all four extremities. The patient has a L lower facial droop. Psychiatric: The patient has an appropriate affect and does not exhibit any anxiety or depression. Triage Information Reviewed: Yes Vital Signs On Initial Exam: Initial Vitals Temp Pulse Resp BP Pulse Ox 98.6 F 58 18 162/64 96 09/17/17 18:17 09/17/17 18:17 09/17/17 18:17 09/17/17 18:17 09/17/17 18:17 Vital Signs Reviewed: Yes Diagnostics - Vital Signs Vital Signs Temp Pulse Resp BP Pulse Ox 09/17/17 18:26 59 12 95 09/17/17 18:17 98.6 F 58 18 162/64 96 - Laboratory Lab Results: Lab Results 09/17/17 09/17/17 09/17/17 Range/Units 19:40 19:40 19:40 WBC 6.5 (3.5-10.8) 10^3/ul RBC 4.56 (4.0-5.4) 10^6/ul Hgb 13.5 L (14.0-18.0) g/dl Hct 40 L (42-52) % MCV 87 (80-94) fL MCH 30 (27-31) pg MCHC 34 (31-36) g/dl RDW 14 (10.5-15) % Plt Count 158 (150-450) 10^3/ul MPV 8.7 (7.4-10.4) um3 Neut % (Auto) 65.7 (38-83) % Lymph % (Auto) 22.3 L (25-47) % Gates % (Auto) 9.6 H (0-7) % Eos % (Auto) 2.1 (0-6) % Baso % (Auto) 0.3 (0-2) % Absolute Neuts (auto) 4.3 (1.5-7.7) 10^3/ul Absolute Lymphs (auto) 1.5 (1.0-4.8) 10^3/ul Absolute Monos (auto) 0.6 (0-0.8) 10^3/ul Absolute Eos (auto) 0.1 (0-0.6) 10^3/ul Absolute Basos (auto) 0 (0-0.2) 10^3/ul Absolute Nucleated RBC 0 10^3/ul Nucleated RBC % 0.1 Sodium 142 (139-145) mmol/L Potassium 3.3 L (3.5-5.0) mmol/L Chloride 105 (101-111) mmol/L Carbon Dioxide 30 (22-32) mmol/L Anion Gap 7 (2-11) mmol/L BUN 21 (6-24) mg/dL Creatinine 0.86 (0.67-1.17) mg/dL Est GFR ( Amer) 109.8 (>60) Est GFR (Non-Af Amer) 85.4 (>60) BUN/Creatinine Ratio 24.4 H (8-20) Glucose 107 H (70-100) mg/dL Lactic Acid 0.7 (0.5-2.0) mmol/L Calcium 8.9 (8.6-10.3) mg/dL Total Bilirubin 0.40 (0.2-1.0) mg/dL AST 17 (13-39) U/L ALT 19 (7-52) U/L Alkaline Phosphatase 65 (34-104) U/L Troponin I 0.01 (<0.04) ng/mL Total Protein 7.1 (6.4-8.9) g/dL Albumin 4.2 (3.2-5.2) g/dL Globulin 2.9 (2-4) g/dL Albumin/Globulin Ratio 1.4 (1-3) TSH 0.02 L (0.34-5.60) mcIU/mL Result Diagrams: 09/17/17 19:40 09/17/17 19:40 Lab Statement: Any lab studies that have been ordered have been reviewed, and results considered in the medical decision making process. - EKG 1 EKG Interpretation: SINUS BRADYCARDIA @ 56 BPM Re-Evaluation - Re-Evaluation 1 Re-Evaluation Time: 20:56 Comment: Discuss lab results, plan to d/c Hypertension Course/Dx - Course Course Of Treatment: After a difficult conversation with his [id number], Mr. Sloan began to feel unusual and took his BP to find it quite elevated. He felt better by the time he got to the ED and his BP was only slightly elevated. He remained stable here and his W/U was only remarkable for a very low TSH. I recommended that he hold his synthroid until speaking with Dr. Romero tomorrow. He did see Dr. Romero a few days ago and had his TSH checked and was advised to cut down on his synthroid but has not yet. He has been C/O some blurry vision in his left eye and was seen by Dr. Holder recently. He denies any change in that tonight. - Diagnoses Provider Diagnoses: Hyperthyroidism Discharge - Sign-Out/Discharge Documenting (check all that apply): Discharge - Discharge Plan Condition: Stable Disposition: HOME Patient Education Materials: Hyperthyroidism (ED) Referrals: Chriss Romero MD [Primary Care Provider] - 1 Day (PLEASE CALL TOMORROW TO SET UP AN APPOINTMENT) Additional Instructions: HOLD THYROID MEDICATIONS UNTIL SEEN BY DR. ROMERO PLEASE RETURN TO THE ED FOR CHANGING OR WORSENING OF SYMPTOMS - Billing Disposition and Condition Condition: STABLE Disposition: HOME The documentation as recorded by the Jackie chambers Edward accurately reflects the service I personally performed and the decisions made by me, Yakov Holcomb MD.
== END 2017-09-17 21:21 | disposition home or self-care (01) ==
LOC: ED 18:07
DX: E05.90 Thyrotoxicosis, unspecified without thyrotoxic crisis or storm (principal); I25.10 Atherosclerotic heart disease of native coronary artery without angina pectoris; E78.00 Pure hypercholesterolemia, unspecified; G47.30 Sleep apnea, unspecified; Z87.891 Personal history of nicotine dependence; Z79.82 Long term (current) use of aspirin; Z79.02 Long term (current) use of antithrombotics/antiplatelets; I25.2 Old myocardial infarction; I69.398 Other sequelae of cerebral infarction
CPT/HCPCS: 36415; 80053; 83605; 84443; 84484; 85025; 93005; 99283

== ENCOUNTER 2017-12-08 09:53 | Inpatient (IN) | payer MEDICARE ==
--- OUTSIDE RECORDS SUMMARY | 2017-12-08 10:30 | XMS REPORT ---
:1935 External Reference #:[id number] Author Organization [employer] Address [address] [place] [address] Phone [phone] Care Team Providers Name Role Phone Chriss Romero MD Primary Care Physician Unavailable Payers Type Date Identification Numbers Payment Provider Subscriber Medicare Primary Effective: Policy Number: Medicare [employer]uma Blue 2001 [id number] PayID: [id number] [address] [place] [address] [facility] Policy Number: [id number] [facility] Huma Blue PayID: [id number] [address] [place] [address] [facility] Expires: 2009 Policy Number: [facility] Huma Blue [id number] PayID: [id number] [address] [place] [address] Problems Date Description Provider Status Onset: 07/13/2011 [...] Chriss Romero M.D.,IGLESIA Active disorder Note: sees DrDana Member Onset: 02/12/2017 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 Exercise Type/Frequency Exercises regularly General Hx Text 3 children Personal Habits Text Allergies, Adverse Reactions, Alerts Date Description Reaction Status Severity Comments 11/14/2013 Narcotic active after surgery, confusion, hypotention 12/27/2016 Morphine Liposomal active 01/03/2017 Cephalexin active nausea, candidiasis 11/14/2013 NKDA inactive Medications Medication Date Status Form Strength Qnty SIG Indications Ordering Provider Levothyroxine Active Tablets 125mcg 30tabs 1 by mouth Balwinder Terry Sodium 018 every day Aldair Romero M.D.,NORYP Amlodipine Active Tablets 10mg 90tabs 1 by mouth Chriss Besylate 018 every day Aldair Romero M.D.,FACP Cpap Mask And Active Device cpap R06.81 Chriss Supplies 018 supplies - jayne Cabrera M.D.,FACP cushion, tubing, filters, for sleep apnea R06.02 Clopidogrel 03/14/2017 Active Tablets 75mg 90tabs 1 po qd Yo Bisulfate Brissa Soliz Atenolol 02/16/2017 Active Tablets 50mg 90tabs take 1 tablet Chriss by kezia Romero every day Brissa,FACRajinder Bupropion HCL 01/30/2017 Active Tablets ER 150mg 30tabs 1 by mouth Other ER (SR) 12HR every day Ordering Provider Trazodone HCL Active Tablets 50mg 90tabs 1 tablet at [place] bedtime as shayna Soliz M.D. Aspirin Active Tablets DR 325mg 1 by mouth Unknown every day Atorvastatin Active Tablets 80mg 90tabs 1 by mouth Yo Calcium every day Brissa Soliz Lorazepam Active Tablets 0.5mg 45tabs 1 tab by Chriss mouth bid prn Aldair Romero M.D.,[facility] Aripiprazole Active Tablets 5mg take 1 tablet Unknown by mouth daily Amphetamine-Dex Active Tablets 15mg 1 by mouth Unknown troamphetamine every day Abilify Active Tablets 2mg 1/2 tab in Am Unknown Lisinopril 09/19/2017 - Hx Tablets 20mg 90tabs 1 by mouth Chriss 11/20/2017 every day Aldair Romero M.D.,[facility] Levothyroxine 09/10/2017 - Hx Tablets 137mcg 30tabs 1 by mouth Balwinder Terry Sodium 11/08/2017 every day Aldair Romero M.D.,[facility] Omeprazole 02/15/2017 - Hx Capsules DR 20mg 30caps 1 by mouth Other 11/20/2017 every day Ordering Provider Aripiprazole 02/15/2017 - Hx Tablets 2mg 1/2 tab q day Other 09/10/2017 Ordering Provider Amlodipine 02/07/2017 - Hx Tablets 5mg 30tabs Take 1 Tablet Chriss Besylate 09/10/2017 By Mouth Aldair Romero, Every Day M.DDana,[facility] Ezetimibe 02/06/2017 - Hx Tablets 10mg 30tabs 1 tab by Brooke Rodriguez 11/20/2017 mouth every 7 Maghayd[place], day. 8 M.D. . 5 Lisinopril 01/31/2017 - Hx Tablets 10mg 90tabs take 1 tablet Chriss 09/19/2017 by mouth Aldair Romero, every day M.Aldair,NORY Levothyroxine 01/30/2017 - Hx Tablets 150mcg 30tabs 1 by mouth Balwinder Terry Sodium 09/10/2017 every day Aldair Romero M.D.,[facility] Fluoxetine HCL 01/03/2017 - Hx Tablets 20mg 3 by mouth Chriss 01/30/2017 every day Aldair Romero M.D.,FACP Fluconazole 12/29/2016 - Hx Tablets 150mg 1tabs take one pill Mellissa 01/30/2017 by mouth Brissa Harvey Finasteride 06/05/2014 - Hx Tablets 5mg 90tabs 1 by mouth Other 06/05/2014 every day Ordering Provider Aspirin 81 07/23/2013 - Hx Tablets DR 81mg po qd Other 02/03/2015 Ordering Provider Zoloft 07/15/2013 - Hx Tablets 100mg 1 po qd Yash Guerrero 11/14/2013 rBissa Nevarez Oxycodone HCL 04/08/2013 - Hx Tablets 5mg 60tabs take 1-2 Neymar 03/18/2013 tabs po q 4-6 Brissa Marrero hours prn pain Voltaren 11/07/2012 - Hx Gel 1% Lrgtube apply 2 grams Neymar 03/18/2013 topically Brissa Marrero three times a day Percocet 08/29/2012 - Hx Tablets 5-325m 60tabs take 1-2 tabs Neymar 03/18/2013 g po q4-6 hours Brissa Marrero prn pain Hydrocodone/Jose 05/23/2012 - Hx Tablets 5-325m 60tabs 1-2 po q 4-6 Neymar taminophen 02/26/2013 g hours prn Brissa Marrero pain Percocet 05/06/2012 - Hx Tablets 5-325m 30tabs 1-2 po q4-6h Neymar 02/26/2013 g prn pain Brissa Marrero Ultram 03/26/2012 - Hx Tablets 50mg 40tabs 1 po qid prn Yash Guerrero 05/02/2012 Brissa Nevarez Zoloft 02/12/2012 - Hx Tablets 50mg 90tabs 1 po qd Yash Guerrero 07/15/2013 Brissa Nevarez Zoloft 10/06/2011 - Hx Tablets 100mg 1/2 po qd Yash Guerrero 02/12/2012 Brissa Nevarez Levoxyl 07/24/2011 - Hx Tablets 150mcg 90tabs po q day Yash Guerrero 01/30/2017 Brissa Nevarez Zofran 07/10/2011 - Hx Tablets 4mg 20tabs 1 q4-6 hours Yash E. 10/06/2011 prn nausea Brissa Nevarez Levoxyl 01/04/2011 - Hx 15mg 90units po qday Yash Guerrero 07/24/2011 Brissa Nevarez Prilosec 04/26/2010 - Hx Capsules DR 20mg 90caps 1 po qd Yo 01/04/2011 Brissa Soliz Simvastatin 02/14/2010 - Hx Tablets 80mg 90tabs 1 po qhs Yash EDana 02/01/2016 Brissa Nevarez Zoloft 05/19/2009 - Hx Tablets 50mg 90tabs 1 po qd Yash EDana 10/06/2011 Brissa Nevarez Diltiazem CD 07/10/2008 - Hx Caps ER 24HR 180mg 90caps 1 po qd Yash EDana 07/13/2011 Brissa Nevarez Simvastatin 06/22/2008 - Hx Tablets 20mg 90tabs 1 po qd Yash Guerrero 02/14/2010 take with loly Nevarez M.D. of simvastatin 40 mgm Zithromax Z-Jose Guadalupe 03/30/2008 - Hx Tablets 250mg 1Pack as per Yash Guerrero 05/04/2009 directions Brissa Nevarez Atenolol 10/10/2007 - Hx Tablets 25mg 90tabs 1 po qd Yash EDana 02/16/2017 Brissa Nevarez Simvastatin 10/10/2007 - Hx Tablets 40mg 90tabs 1 po qhs Yash Guerrero 02/14/2010 (take with brunilda Nevarez M.D. 40 mgm) Aspirin 03/25/2007 - Hx Tablets DR 81mg 100tabs 1 PO qd Yash Guerrero 07/13/2011 Brissa Nevarez Doxycycline 03/25/2007 - Hx Capsules 100mg. 2caps 2 caps po x 1 Yash Guerrero 10/10/2007 dose Brissa Nevarez Levoxyl - Hx Tablets .15 90tabs 1 po qd Yash EDana 01/04/2011 Brissa Nevarez Cardizem LA - Hx Tablets ER 180mg 90tabs 1 po qd Yash EDana 07/10/2008 24HR Brissa Nevarez Zoloft - Hx Tablets 50mg 90tabs 1 po qd Yash Guerrero 05/04/2009 Brissa Nevarez Zetia - Hx Tablets 10mg 90tabs 1 PO QHS Jeffreykely, 10/10/2007 MD Kristian Lipitor - Hx Tablets 20mg 1Tab PO hs Jeffrey, 10/10/2007 MD Kristian Omeprazole - Hx Capsules DR 20mg 90caps 1 po qd Yash Guerrero 02/01/2016 Brissa Nevarez Proscar - Hx Tablets 5mg 30tabs 1 po qd Unknown 11/20/2017 Aggrenox - Hx Caps ER 12HR 25-200 180caps 1 Tab bid Yash Guerrero 07/15/2013 mg Brissa Nevarez Lorazepam - Hx Tablets 1mg 60tabs 1 q 6 hours Unknown 10/06/2011 prn Ativan - Hx Tablets 1mg 20tabs 1/2-1 po bid Unknown 10/06/2011 prn Centrum Silver - Hx Tablets 1 po qd Unknown 02/02/2015 Melatonin - Hx Capsules 1mg 1 qd prn Unknown 02/26/2013 Aspirin - Hx Tablets 325mg 100tabs 1 po qd Yash Guerrero 05/02/2012 Brissa Nevarez Prednisone - Hx Tablets 5mg 70tabs daily for 12 Unknown 02/26/2013 days Pain Reliever - Hx Tab unk name, prn Unknown 07/15/2013 Potassium - Hx Capsules ER 20Meq 90caps 1 po qd Unknown Chloride ER 07/15/2013 Wellbutrin SR - Hx Tablets ER 150mg 180tabs 1 po bid Unknown 07/15/2013 12HR Buspirone HCL - Hx Tablets 10mg 60tabs 1 po bid Unknown 07/15/2013 Diclofenac - Hx Tablets DR 50mg 60tabs 1 tab by Unknown Sodium 11/14/2013 mouth twice a day Finasteride - [...] B12 - Hx Tab 1 po q Unknown 02/05/2017 and Prozac - Hx Capsules [...] 2mg 1/2 tablet Unknown 02/15/2017 per day Flomax - Hx Capsules 0.4mg 90caps Take 1 Chriss 11/20/2017 Capsule By Aldair Romero, Kezia Every M.D.,FACP Day Shingrix - Hx Suspension 50mcg To Be Given Unknown 11/20/2017 Rec By Pharmacist Per Standing Order Medications Administered in Office Medication Date Status Form Strength Qnty SIG Indications Ordering Provider Germain Administered Injection Neymar 80MG 012 Brissa Marrero Immunizations CPT Code Status Date Vaccine Reaction Lot # [id number] Given 10/16/2017 Zoster (Shingles) Vaccine (HZV), Recombinant, Subunit, Adjuvanted 91393 Given 02/07/2017 Influenza Virus Vaccine, 572kt Quadrivalent, Split, Preservative Free 01771 Given 02/07/2017 Pneumococcal Conjugate Vaccine pt tolerated well [id number] Valent For Intramuscular Use Q2037 Given 03/09/2012 Fluvirin Im 3Yrs And Older Q2038 Given 02/17/2011 Fluzone Vaccine [id number] 82963 Given 03/25/2010 Influenza Virus 3Yrs & Over [id number] 59831 Given 03/25/2007 Influenza Virus 3Yrs & Over 96715 Given 03/25/2007 Influenza Virus 3Yrs & Over 89334 Given 10/12/2002 Td (History By Patient) 38501 Given 11/11/2001 Pneumovax (History By Patient) Vital Signs Date Vital Result Comment 11/20/2017 Height 65 inches 5'5" Weight 188.50 lb Heart Rate 67 /min BP Systolic 142 mmHg BP Diastolic 66 mmHg Body Temperature 97.5 F O2 % BldC Oximetry 97 % BMI (Body Mass Index) 31.4 kg/m2 10/19/2017 Weight 191.00 lb Heart Rate 69 /min BP Systolic Sitting 112 mmHg BP Diastolic Sitting 60 mmHg Body Temperature 98.3 F O2 % BldC Oximetry 96 % 09/19/2017 Weight 198.00 lb Heart Rate 65 /min BP Systolic Sitting 180 mmHg BP Diastolic Sitting 90 mmHg BP Systolic Recheck 160 mmHg BP Diastolic Recheck 70 mmHg Body Temperature 97.6 F O2 % BldC Oximetry 93 % 09/10/2017 Height 67 inches 5'7" Weight 194.00 [...] 5'7" Weight 181.00 lb Pain Level 3 08/11 constant worse with activity BMI (Body Mass [...] Test Date Test Result H/L Range Note Laboratory test finding 11/02/2017 TSH (Thyroid Stim 0.18 mcIU/mL Low 0.34 -5.60 Horm) Hemoglobin A1c (Glyco HGB) 6.3 % High 4.0-5.6 1 Laboratory test finding 09/17/2017 Lactic Acid 0.7 mmol/L 0.5-2.0 2 CBC Auto Diff 09/17/2017 White Blood Count 6.5 10^3/uL 3.5-10.8 Red Blood Count 4.56 10^6/uL 4.0-5.4 Hemoglobin 13.5 g/dL Low 14.0-18.0 Hematocrit 40 % Low 42-52 Mean Corpuscular Volume 87 fL 80-94 Mean Corpuscular Hemoglobin 30 pg 27-31 Mean Corpuscular HGB Conc 34 g/dL 31-36 Red Cell Distribution Width 14 % 10.5-15 Platelet Count 158 10^3/uL 150-450 Mean Platelet Volume 8.7 um3 7.4-10.4 Abs Neutrophils 4.3 10^3/uL 1.5-7.7 Abs Lymphocytes 1.5 10^3/uL 1.0-4.8 Abs Monocytes 0.6 10^3/uL 0-0.8 Abs Eosinophils 0.1 10^3/uL 0-0.6 Abs Basophils 0 10^3/uL 0-0.2 Abs Nucleated RBC 0 10^3/uL Granulocyte % 65.7 % 38-83 Lymphocyte % 22.3 % Low 25-47 Monocyte % 9.6 % High 0-7 Eosinophil % 2.1 % 0-6 Basophil % 0.3 % 0-2 Nucleated Red Blood Cells % 0.1 Comp Metabolic Panel 09/17/2017 Potassium 3.3 mmol/L Low 3.5-5.0 Chloride 105 mmol/L 101-111 Co2 Carbon Dioxide 30 mmol/L 22-32 Glucose 107 mg/dL High 70-100 Blood Urea Nitrogen 21 mg/dL 6-24 Creatinine 0.86 mg/dL 0.67-1.17 BUN/Creatinine Ratio 24.4 High 8-20 Calcium 8.9 mg/dL 8.6-10.3 Total Protein 7.1 g/dL 6.4-8.9 Albumin 4.2 g/dL 3.2-5.2 Globulin 2.9 g/dL 2-4 Albumin/Globulin Ratio 1.4 1-3 Total Bilirubin 0.40 mg/dL 0.2-1.0 Alkaline Phosphatase 65 U/L 34-104 Alt 19 U/L 7-52 Ast 17 U/L 13-39 Egfr Non- 85.4 >60 Egfr 109.8 >60 3 Sodium 142 mmol/L 139-145 Anion Gap 7 mmol/L 2-11 Laboratory test finding 09/17/2017 Troponin-I (TnI) 0.01 ng/mL <0.04 TSH (Thyroid Stim Horm) 0.02 mcIU/mL Low 0.34-5.60 Lipid Profile (Trig/Chol/HDL) 08/30/2017 Triglycerides 79 mg/dL 4 Cholesterol 122 mg/dL 5 HDL Cholesterol 43.4 mg/dL 6 LDL Cholesterol 63 mg/dL 7 Basic Metabolic Panel 08/30/2017 Sodium 142 mmol/L 139-145 Potassium 3.6 mmol/L 3.5-5.0 Chloride 104 mmol/L 101-111 Co2 Carbon Dioxide 30 mmol/L 22-32 Anion Gap 8 mmol/L 2-11 Glucose 123 mg/dL High 70-100 Blood Urea Nitrogen 17 mg/dL 6-24 Creatinine 0.94 mg/dL 0.67-1.17 BUN/Creatinine Ratio 18.1 8-20 Calcium 8.8 mg/dL 8.6-10.3 Egfr Non- 77.0 >60 Egfr 99.1 >60 8 Laboratory test finding 08/30/2017 Vitamin B12 310 pg/mL 180-914 9 TSH (Thyroid Stim Horm) 0.15 mcIU/mL Low 0.34-5.60 10 Laboratory test finding 04/17/2017 Renin <0.6 ng/mL/h 11 Laboratory test finding 04/17/2017 Renin <0.6 ng/mL/h 12 Lipid Profile (Trig/Chol/HDL) 02/13/2017 Triglycerides 80 mg/dL 13 Cholesterol 93 mg/dL 14 HDL Cholesterol 36.8 mg/dL 15 LDL Cholesterol 40 mg/dL 16 Laboratory test finding 02/13/2017 Troponin-I (TnI) 0.00 ng/mL <0.04 Comp Metabolic Panel 02/13/2017 Sodium 140 mmol/L [...] Egfr Non- 86.7 >60 Egfr 111.5 >60 17 CBC Auto Diff 02/13/2017 White Blood Count [...] 0-2 Nucleated Red Blood Cells % 0.1 Laboratory test finding 02/13/2017 Lactic Acid 1.3 mmol/L 0.5-2.0 18 Basic Metabolic Panel 02/01/2017 Sodium 140 mmol/L 133-145 Potassium 3.9 mmol/L 3.5-5.0 Chloride 103 mmol/L 101-111 Co2 Carbon Dioxide 33 mmol/L High 22-32 Anion Gap 4 mmol/L 2-11 Glucose 123 mg/dL High 70-100 Blood Urea Nitrogen 12 mg/dL 6-24 Creatinine 0.78 mg/dL 0.67-1.17 BUN/Creatinine Ratio 15.4 8-20 Calcium 9.2 mg/dL 8.6-10.3 Egfr Non- 95.8 >60 Egfr 123.2 >60 19 Lipid Profile (Trig/Chol/HDL) 02/01/2017 Triglycerides 149 mg/dL 20 Cholesterol 178 mg/dL 21 HDL Cholesterol 47.9 mg/dL 22 LDL Cholesterol 100 mg/dL 23 Laboratory test finding 02/01/2017 Vitamin B12 310 pg/mL 180-914 24 Laboratory test finding 01/17/2017 Magnesium 2.2 mg/dL [...] Egfr Non- 81.2 >60 Egfr 104.4 >60 25 Inr/Protime 02/03/2014 Inr 0.89 0.85-1.06 Basic Metabolic Panel 02/03/2014 Sodium 139 mmol/L 133-145 Potassium 3.8 mmol/L 3.7-5.6 Chloride 102 mmol/L 101-111 Co2 Carbon Dioxide 31 mmol/L 22-32 Anion Gap 6 mmol/L 2-11 Glucose 97 mg/dL 70-100 Blood Urea Nitrogen 13 mg/dL 6-24 Creatinine 0.84 mg/dL 0.67-1.17 BUN/Creatinine Ratio 15.5 8-20 Calcium 8.9 mg/dL 8.6-10.3 Egfr Non- 88.6 >60 Egfr 114.0 >60 26 CBC Auto Diff 02/03/2014 White Blood Count [...] Partial Thrombo Time 31.3 seconds 24.0- 36.1 27 CBC Auto Diff 07/11/2013 White Blood Count [...] Egfr Non- 109.4 >60 Egfr 140.6 >60 28 Inr/Protime 07/11/2013 Inr 0.97 0.85-1.06 Laboratory test finding 04/24/2013 Inr 1.08 High 0.85-1.06 29 Laboratory test finding 04/21/2013 Inr 1.24 High 0.85-1.06 30 Urinalysis 04/08/2013 Urine Color Yellow Urine Appearance Clear Urine Specific [place] 1.020 1.010-1.030 Urine Esterase Trace Negative Urine [...] um3 7.4-10.4 Inr/Protime 04/08/2013 Inr 0.91 0.85-1.06 31 Laboratory test finding 04/08/2013 Activated Partial 30.4 seconds 24.0- 36.1 32 Thrombo Time Basic Metabolic Panel 04/08/2013 Sodium 140 mmol/L 133-145 Potassium 3.7 mmol/L 3.5-5.0 Chloride 104 mmol/L 101-111 Co2 Carbon Dioxide 32.0 mmol/L 22-32 Anion Gap 4.0 mmol/L 2-11 Glucose 108 mg/dL High 70-100 Blood Urea Nitrogen 15 mg/dL 6-24 Creatinine 0.80 mg/dL 0.50-1.40 BUN/Creatinine Ratio 18.8 8-20 Calcium 9.0 mg/dL 8.1-9.9 Egfr Non- 94.0 >60 Egfr 120.9 >60 33 Type & Screen 04/08/2013 Patient Blood Type A Negative Antibody Screen NEGATIVE Laboratory test finding 01/21/2013 Fluid Crystals None Seen 34 Body Fluid C&S 01/21/2013 Body Fluid Cult Gram (SEE NOTE) 35 Stain Body Fluid Cell Count 01/21/2013 Body Fluid Source Synovial Fluid Body Fluid Appearance Cloudy Body Fluid Color Yellow Body Fluid Volume 1.5 mL Body Fluid WBC 67 Body Fluid RBC 2770 Body Fluid Polys 21 Body Fluid Lymph 54 Body Fluid Wilkinson 22 Body Fluid Eosinophil 2 Body Fluid Total Cells Counted 100 Fluid Reviewed By MD (SEE NOTE) 36 Laboratory test finding 01/07/2013 C Reactive Protein < 0.5 mg/dL Less than 0.5 CBC Auto Diff 01/07/2013 White Blood Count [...] Egfr Non- 94.2 >60 Egfr 121.2 >60 37 Laboratory test finding 05/02/2012 Creatine Kinase 110 [...] 1.1 1-3 Total Bilirubin 0.5 mg/dL 0.1-1.0 38 Alkaline Phosphatase 56 U/L 30-110 Alt 18 U/L 14-54 Ast 22 U/L 12-42 Egfr Non- 94.2 >60 Egfr 121.2 >60 39 Laboratory test finding 03/23/2012 Uric Acid 3.9 [...] mmol/L 22-32 Anion Gap 5.0 mmol/L 2-11 40 Glucose 84 mg/dL 70-100 BUN 20 mg/dL 6-24 Creatinine 0.8 mg/dL 0.50-1.40 One Over Creatinine 1.25 BUN/Creatinine Ratio 25.0 High 8-20 Calcium 9.0 mg/dL 8.1-9.9 eGFR Non- 94.2 > 60 eGFR 121.2 > 60 41 Laboratory test finding 01/24/2012 Iron Total 63 g/dL 45-182 Ferritin 92 NG/ML 24-336 Vitamin B12 369 pg/mL 180-914 Folic Acid > 25.8 NG/ML See Below 42 CBC Auto Diff 01/24/2012 White Blood Count [...] 0-0.2 Surgical Pathology 12/13/2011 Surgical Pathology <SEE 43 NOTE> CBC Auto Diff 10/19/2011 White Blood [...] Eosinophils 0.1 0-0.6 Abs Basophils 0 0-0.2 44 Comp Metabolic Panel 10/19/2011 Sodium 140 mmol/L 135-145 Potassium 3.8 mmol/L 3.5-5.0 Chloride 105 mmol/L 101-111 Co2 (Carbon Dioxide) 31.0 mmol/L 22-32 Anion Gap 4.0 mmol/L 2-11 45 Glucose 100 mg/dL 70-100 BUN 20 mg/dL 6-24 Creatinine 0.9 mg/dL 0.50-1.40 One Over Creatinine 1.11 BUN/Creatinine Ratio 22.2 High 8-20 Calcium 8.9 mg/dL 8.1-9.9 Total Protein 6.5 GM/DL 6.2-8.1 Albumin 3.9 GM/DL 3.2-5.2 Globulin 2.6 GM/DL 2-4 Albumin/Globulin Ratio 1.5 1-3 Bilirubin Total 0.6 mg/dL 0.4-1.5 46 Alkaline Phosphatase 54 U/L 39-117 Alt (SGPT) 24 U/L 17-63 Ast (Sgot) 25 U/L 12-42 eGFR Non- 82.3 > 60 eGFR 105.8 > 60 47 Laboratory test finding 10/19/2011 Erythrocyte Sed Rate 13 MM/HR 0-40 C Reactive Protein < 0.5 mg/dL Less Than 0.5 TSH 0.82 MIU/ML 0.34-5.60 Laboratory test 10/03/2011 Stool Culture <SEE 48 finding NOTE> Manual Differential 10/02/2011 Polysegmented 71 % [...] mmol/L 22-32 Anion Gap 9.0 mmol/L 2-11 49 Glucose 70 mg/dL 70-100 BUN 16 mg/dL 6-24 Creatinine 1.0 mg/dL 0.50-1.40 One Over Creatinine 1.00 BUN/Creatinine Ratio 16.0 8-20 Calcium 8.9 mg/dL 8.1-9.9 Total Protein 6.5 GM/DL 6.2-8.1 Albumin 4.0 GM/DL 3.2-5.2 Globulin 2.5 GM/DL 2-4 Albumin/Globulin Ratio 1.6 1-3 Bilirubin Total 0.5 mg/dL 0.4-1.5 50 Alkaline Phosphatase 59 U/L 39-117 Alt (SGPT) 24 U/L 17-63 Ast (Sgot) 28 U/L 12-42 eGFR Non- 72.8 > 60 eGFR 93.7 > 60 51 CBC Auto Diff 10/02/2011 White Blood Count [...] 150-450 Mean Platelet Volume 9.5 um3 7.4-10.4 52 Laboratory test finding 01/04/2011 Hemoglobin A1c 5.7 [...] 12/27/2010 Cholesterol 165 mg/dL Less Than 200 53 Triglyceride 96 mg/dL 40-200 High Density Lipoprotein 43 mg/dL 40-60 54 Cholesterol/HDL Ratio 3.84 AVERAGE 1-4.97 Low Density Lipoprotein 103 mg/dL High Less Than 100 55 CMP Panel 12/27/2010 Albumin 4.1 GM/DL 3.2-5.2 Alt (SGPT) 19 U/L 17-63 Calcium 9.1 mg/dL 8.1-9.9 Co2 (Carbon Dioxide) 32.0 mmol/L 22-32 Chloride 101 mmol/L 101-111 Glucose 92 mg/dL 70-100 Alkaline Phosphatase 55 U/L 39-117 Potassium 3.8 mmol/L 3.5-5.0 Total Protein 6.7 GM/DL 6.2-8.1 Sodium 139 mmol/L 135-145 Ast (Sgot) 24 U/L 12-42 BUN 14 mg/dL 6-24 Anion Gap 6.0 mmol/L 2-11 56 Creatinine 0.80 mg/dL 0.50-1.40 One Over Creatinine 1.20 BUN/Creatinine Ratio 17.5 8-20 Globulin 2.6 GM/DL 2-4 Albumin/Globulin Ratio 1.6 1-3 Bilirubin Total 0.8 mg/dL 0.4-1.5 57 eGFR Non- 94.5 > 60 eGFR 121.5 > [address] Nevarez's Lab Panel 12/27/2010 TSH 0.63 MIU/ML 0.34-5.60 Laboratory test finding 07/06/2010 Hemoglobin A1c 6.3 5-7 Laboratory test finding 04/26/2010 Ast (Sgot) 25 U/L 12-42 Alt (SGPT) 28 U/L 17-63 Basic Metabolic Panel 04/26/2010 Sodium 140 mmol/L 135-145 Potassium 3.8 mmol/L 3.5-5.0 Chloride 103 mmol/L 101-111 Co2 (Carbon Dioxide) 32.0 mmol/L 22-32 Anion Gap 5.0 mmol/L 2-11 59 Glucose 92 mg/dL 70-100 60 BUN 14 mg/dL 6-24 Creatinine 0.90 mg/dL 0.50-1.40 One Over Creatinine 1.10 BUN/Creatinine Ratio 15.6 8-20 Calcium 9.0 mg/dL 8.1-9.9 eGFR Non- 87.9 > 60 eGFR 106.4 > 60 61 Laboratory test finding 04/26/2010 Hemoglobin A1c 6.3 % High Less Than 6.0 62 Lipid Profile 04/26/2010 Triglyceride 83 mg/dL 40-200 (Trig/Chol/HDL) Cholesterol 156 mg/dL Less Than 200 63 High Density Lipoprotein 41 mg/dL 40-60 64 Cholesterol/HDL Ratio 3.80 AVERAGE 1-4.97 Low Density Lipoprotein 98 mg/dL Less Than 100 65 Laboratory test finding 04/13/2010 PSA,Diagnostic 1.48 NG/ML 0-[address] Nevarez's Lab Panel 02/11/2010 TSH 1.55 MIU/ML 0.34-5.60 Comp Metabolic Panel 02/11/2010 Sodium 143 mmol/L 135-145 Potassium 3.8 mmol/L 3.5-5.0 Chloride 105 mmol/L 101-111 Co2 (Carbon Dioxide) 30.0 mmol/L 22-32 Anion Gap 8.0 mmol/L 2-11 67 Glucose 115 mg/dL High 70-100 68 BUN 13 mg/dL 6-24 Creatinine 0.90 mg/dL 0.50-1.40 One Over Creatinine 1.10 BUN/Creatinine Ratio 14.4 8-20 Calcium 8.8 mg/dL 8.1-9.9 Total Protein 6.9 GM/DL 6.2-8.1 Albumin 4.1 GM/DL 3.2-5.2 Globulin 2.8 GM/DL 2-4 Albumin/Globulin Ratio 1.5 1-3 Bilirubin Total 0.7 mg/dL 0.4-1.5 69 Alkaline Phosphatase 54 U/L 39-117 Alt (SGPT) 52 U/L 17-63 Ast (Sgot) 39 U/L 12-42 eGFR Non- 87.9 > 60 eGFR 106.4 > 60 70 Lipid Profile (Trig/Chol/HDL) 02/11/2010 Triglyceride 203 mg/dL High 40- 200 Cholesterol 233 mg/dL High Less Than 200 71 High Density Lipoprotein 42 mg/dL 40-60 72 Cholesterol/HDL Ratio 5.55 AVERAGE High 1-4.97 Low Density Lipoprotein 150 mg/dL High Less Than 100 73 CBC With Electronic Diff 02/11/2010 White Blood [...] 0-0.2 Surgical Pathology 06/08/2009 Surgical Pathology <SEE 74 NOTE> Laboratory test 04/14/2009 PSA,Diagnostic 1.70 NG/ML 0-4 75 finding CBC With Electronic 04/01/2008 White Blood Count 5.3 CUMM 4.8-10.8 76 Diff Red Cell Count 4.68 CUMM 4.6-6.2 76 Hemoglobin 14.7 g/dL 14.0-18.0 76 Hematocrit 41 % Low 42-52 76 Mean Corpuscular Volume 88 um3 80-94 76 Mean Corpuscular Hemoglob 31 pg 27-31 76 Mean Corpuscular HGB Cone 36 g/dL 32-36 76 Redcell Distribution WDTH 13 % 10.5-15 76 Platelet Count 186 CUMM 150-450 76 Mean Platelet Volume 8.0 um3 7.4-10.4 76 Gran % 50.4 % 38-83 76 Lymph % 36.0 % 20-45 76 Mononuclear % 11.2 % High 1-9 76 Eosinophil % 1.9 % 0-6 76 Basophil % 0.5 % 0-2 76 Abs Lymphs 1.9 1.0-4.8 76 Abs Mononuclear 0.6 0-0.8 76 Absolute Neutrophil Count 2.7 1.5-7.7 76 Abs Eosinophils 0.1 0-0.6 76 Abs Basophils 0 0-0.2 76 Comp Metabolic Panel 04/01/2008 Sodium 141 mmol/L 135-145 76 Potassium 3.3 mmol/L Low 3.5-5.0 76 Chloride 106 mmol/L 101-111 76 Co2 (Carbon Dioxide) 31.0 mmol/L 22-32 76 Anion Gap 4.0 mmol/L 2-11 76, 77 Glucose 104 mg/dL High 70-100 76, 78 BUN 15 mg/dL 6-24 76 Creatinine 0.82 mg/dL 0.50-1.40 76 One Over Creatinine 1.20 76 BUN/Creatinine Ratio 18.3 8-20 76 Calcium 9.0 mg/dL 8.1-9.9 76, 79 Total Protein 6.9 GM/DL 6.2-8.1 76 Albumin 3.8 GM/DL 3.2-5.2 76 Globulin 3.1 GM/DL 2-4 76 Albumin/Globulin Ratio 1.2 1-3 76 Bilirubin Total 0.6 mg/dL 0.4-1.5 76 Alkaline Phosphatase 67 U/L 39-117 76 Alt (SGPT) 47 U/L 17-63 76 Ast (Sgot) 34 U/L 12-42 76 Lipid Profile (Trig/Chol/HDL) 04/01/2008 Triglyceride 295 mg/dL High 40- 200 76 Cholesterol 165 mg/dL Less Than 200 76, 80 High Density Lipoprotein 33 mg/dL Low 40-60 76, 81 Cholesterol/HDL Ratio 5.00 AVERAGE High 1-4.97 76 Low Density Lipoprotein 73 mg/dL Less Than 100 76, 82 Thyroxine Free 04/01/2008 Free Thyroxine 0.86 NG/ML 0.61-1.24 76, 83 Laboratory test finding 04/01/2008 TSH 0.93 MIU/ML 0.34-5.60 76 PSA Screening 1.42 NG/ML 0-4 76, 84 Comp Metabolic Panel 04/04/2007 One Over Creatinine 0.90 85 Anion Gap 6.0 mmol/L 2-11 85, 86 Albumin/Globulin Ratio 1.2 1-3 85 Albumin 3.8 GM/DL 3.2-5.2 85 Alkaline Phosphatase 64 U/L 39-117 85 Alt (SGPT) 31 U/L 17-63 85 Ast (Sgot) 27 U/L 12-42 85 BUN 16 mg/dL 6-24 85 Calcium 8.9 mg/dL 8.7-10.2 85 Chloride 102 mmol/L 101-111 85 Co2 (Carbon Dioxide) 33.0 mmol/L High 22-32 85 Globulin 3.1 GM/DL 2-4 85 Glucose 105 mg/dL 70-105 85 Potassium 3.6 mmol/L 3.5-5.0 85 Sodium 141 mmol/L 135-145 85 Bilirubin Total 0.6 mg/dL 0.4-1.5 85 Total Protein 6.9 GM/DL 6.2-8.1 85 BUN/Creatinine Ratio 14.5 8-20 85 Creatinine 1.1 mg/dL 0.5-1.4 85 Lipid Profile 04/04/2007 Cholesterol/HDL Ratio 4.81 AVERAGE 1-4.97 85 (Trig/Chol/HDL) Cholesterol 202 mg/dL High Less Than 200 85, 87 Triglyceride 218 mg/dL High 40-200 85 High Density Lipoprotein 42 mg/dL 40-60 85 Low Density Lipoprotein 116 mg/dL High Less Than 100 85, 88 Laboratory test finding 04/04/2007 PSA Screening 1.58 NG/ML 0-4 85, 89 TSH 1.33 MIU/ML 0.34-5.60 85 CBC W/ Electronic Diff 04/04/2007 White Blood [...] Redcell Distribution WDTH 13 % 10.5-15 1 Therapeutic target for the treatment of diabetes mellitus patients is <7% HBA1C, and in selective patients <6.0%. Please refer to [place] [employer] diabetic care guidelines for further information. 2 [place] Severe Sepsis and Septic Shock Management Bundle Measure requires all lactic acids initially measuring >2.0 mmol/L be repeated. 3 Because ethnic data is not always readily [...] 15-29 5 Kidney failure <15 (or dialysis) 4 Desirable: <150 Borderline High: 150-199 High: 200-499 Very High: >500 5 Desirable: <200 Borderline High: 200-239 High: >239 6 Low: <40 Desirable: 40-60 High: >60 7 Desirable: <100 Near Optimal: 100-129 Borderline High: 130-159 High: 160-189 Very High: >189 8 Because ethnic data is not always readily [...] 15-29 5 Kidney failure <15 (or dialysis) 9 Normal Range 180 to 914 Indeterminate Range 145 to 180 Deficient Range <145 10 FASTING 10 HOUR 11 REFERENCE VALUE (Peripheral vein specimen) Na-deplete, upright: Mean: 5.9 Range: 2.9-10.8 Na-replete, upright: Mean: 1.0 Range: < or=0.6-3.0 ADDITIONAL INFORMATION Testing performed by Liquid Chromatography-Tandem Mass Spectrometry (LC-MS/MS). This test was developed and its performance characteristics determined by [facility] in a manner consistent with CLIA requirements. This test has not been cleared or approved by the U.S. Food and Drug Administration. Test Performed by: [facility] [email or web address] - [address] [address] 12 REFERENCE VALUE (Peripheral vein specimen) Na-deplete, upright: Mean: 5.9 Range: 2.9-10.8 Na-replete, upright: Mean: 1.0 Range: < or=0.6-3.0 ADDITIONAL INFORMATION Testing performed by Liquid Chromatography-Tandem Mass Spectrometry (LC-MS/MS). This test was developed and its performance characteristics determined by [facility] in a manner consistent with CLIA requirements. This test has not been cleared or approved by the U.S. Food and Drug Administration. Test Performed by: [place] [address] 13 Desirable <150 Borderline high 150-199 High 200-499 Very High >500 14 Desirable <200 Borderline high 200-239 High >239 15 Low <40 Desirable: 40-60 High: >60 16 Desirable: <100 mg/dL Near Optimal: 100-129 mg/dL Borderline High: 130-159 mg/dL High: 160-189 mg/dL Very High: >189 mg/dL 17 Because ethnic data is not always readily [...] 15-29 5 Kidney failure <15 (or dialysis) 18 [facility] Severe Sepsis and Septic Shock Management Bundle Measure requires all lactic acids initially measuring >2.0 mmol/L be repeated. 19 Because ethnic data is not always readily [...] 15-29 5 Kidney failure <15 (or dialysis) 20 Desirable <150 Borderline high 150-199 High 200-499 Very High >500 21 Desirable <200 Borderline high 200-239 High >239 22 Low <40 Desirable: 40-60 High: >60 23 Desirable: <100 mg/dL Near Optimal: 100-129 mg/dL Borderline High: 130-159 mg/dL High: 160-189 mg/dL Very High: >189 mg/dL 24 Normal Range 180 to 914 Indeterminate Range 145 to 180 Deficient Range <145 25 Because ethnic data is not always [...] 5 Kidney failure <15 (or dialysis) 26 Because ethnic data is not always readily [...] 15-29 5 Kidney failure <15 (or dialysis) 27 labs to be drawn between July 09 - 2013 28 Because ethnic data is not always readily [...] 15-29 5 Kidney failure <15 (or dialysis) 29 Please note the change in the INR reference range effective 13. 30 Please note the change in the INR reference range effective 13. 31 Please note the change in the INR reference range effective 13. 32 AA 04/16/13 33 Because ethnic data is not always readily [...] 15-29 5 Kidney failure <15 (or dialysis) 34 LEFT KNEE Synovial (Joint) Fluid 35 RUN DATE: 01/25/13 [facility] LAB LIVE PAGE 1 RUN TIME: 101[address] [place], [place] [address] Specimen Inquiry Name: HUMA BLUE : [address]: Neymar Marrero MD Acct: [id number] Unit: [id number] AGE: 77 Location: [facility] Re01/21/13 SEX: M Status: REG REF SPEC: [id number] ANJUM: 01/21/13-[address]: Neymar Marrero MD REQ: [id number] RECD: 01/21/13 STATUS: COMP _ SOURCE: JOINT FLUI SPDESC:KNEE LEFT ORDERED: BF Marco/HERMELINDO COMMENTS: LEFT KNEE Procedure Result Verified Site Body Fluid Gram Stain Final 01/21/13- 1229 ML 1+ Polys No Organisms Seen Preparation By Direct Smear Body Fluid Culture Final 01/25/13- 1010 ML No Growth Day 4 END OF REPORT * ML=Testing performed at Main Lab DEPARTMENT OF PATHOLOGY, [address] [place] [address] Jeb Reyes M.D. Director [facility] Permit #[id number] 36 Slide and differential reviewed. No bacteria, blasts or other malignant cells seen. REVIEWED BY JEB REYES MD 37 Because ethnic data is not always readily [...] 15-29 5 Kidney failure <15 (or dialysis) 38 A metabolite of Naproxen, O-desmethylnaproxen, has been shown to interfere with the Jendrassik-Lindsay method for measuring total bilirubin. Samples from patients who have taken Naproxen have shown spurious elevation in total bilirubin levels. 39 Because ethnic data is not always readily [...] 15-29 5 Kidney failure <15 (or dialysis) 40 Anion gap measurement may be of limited value in the presence of any alkalosis, especially in a combined acid base disorder. . 41 Because ethnic data is not always readily [...] 15-29 5 Kidney failure <15 (or dialysis) 42 Please note: New reference range, effective 05/25/11 NORMAL REFERENCE RANGE: GREATER THAN 4.1 NG/ML 43 ---- RUN DATE: 12/15/11 [facility] NMI LIVE PAGE 1 RUN TIME: 1323 Specimen Inquiry RUN USER: INTERFACE -- Name: HUMA BLUE Accapril#: [id number] Status: REG REF Re12/13/11 Age/Sex: 76/M Unit#: [id number] Location: [address] [place] [address]. : [birth year] -- Specimen: [id number] [facility] Spec Date:12/13/11- Dr: Clayton Damon MD Spec Type: SURGICAL [...] polyp (see comment). -- DEPARTMENT OF PATHOLOGY, [address] [place] [address] [facility] Permit #[id number] Brissa Cummings M.D. Twisting Press Operator Dir florentin -- -- RUN DATE: 12/15/11 [facility] NMI LIVE PAGE 2 RUN TIME: 1323 Specimen Inquiry RUN USER: INTERFACE -- Name: HUMA BLUE Accapril#: [id number] Status: REG REF Re12/13/11 Age/Sex: 76/M Unit#: [id number] [facility] [birth year] -- -- CONTINUED -- COMMENT Part 2 shows definitive evidence of lymphocytic colitis. 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 Part 3 (sigmoid nodule) shows colonic mucosa with again evidence of collagenous colitis and with hyperplastic change. Signed Electronically by: IONA DENISE 12/15/11 1323 -- -- DEPARTMENT OF PATHOLOGY, [address] [place] [address] [facility] Permit #[id number] Jeb Reyes M.D. Director Iona Denise M.D. Twisting Press Operator Dir lerma -- 44 Lymphopenia % 45 Anion gap measurement may be of limited value in the presence of any alkalosis, especially in a combined acid base disorder. . 46 A metabolite of Naproxen, O-desmethylnaproxen, has been shown to interfere with the Jendrassik-Lindsya method for measuring total bilirubin. Samples from patients who have taken Naproxen have shown spurious elevation in total bilirubin levels. 47 Because ethnic data is not always readily [...] 15-29 5 Kidney failure <15 (or dialysis) 48 RUN DATE: 10/10/11 [facility] NMI LIVE PAGE 1 RUN TIME: 1455 Specimen Inquiry RUN USER: INTERFACE Name: HUMA BLUE Status: REG REF Re10/03/11 Age/Sex: 76/M Unit#: [id number] [facility] SPEC #: [id number] ANJUM: 10/03/11 STATUS: COMP REQ #: [id number] RECD: 10/03/[address] [facility] [address]: Geri GEORGES MDYash SOURCE: STOOL ENTR: 10/03/[address]: [facility]: ORDERED: STOOL CULTURE, O P (FULL), O P: GLO/Eva KEATING DIFF AMP DNA, STL LACTOF QUERIES: MEDENT REQUISITION # [id number] ACT WKST: P 10/07/11 #1 Procedure Result Verified Site > STOOL CULT SENSITIVITY Final 10/05/11- 1222 ML NEGATIVE FOR THE ENTERIC PATHOGENS - SALMONELLA, SHIGELLA, AEROMONAS, PLESIOMONAS AND YERSINIA. VIBRIO AND E. COLI 0157 NOT ROUTINELY TESTED FOR IN A STOOL CULTURE. PLEASE SUBMIT SAMPLE WITH SPECIFIC REQUEST FOR DESIRED ORGANISM(S). > STOOL SPECIMEN DESCRIPTION Final 10/03/11- 1243 ML STOOL COLOR BROWN STOOL FORM SEMI-FORMED STOOL CONSISTENCY SOFT > CAMPYLOBACTER CULTURE Final 10/05/11- 1222 ML NO GROWTH OF CAMPYLOBACTER AFTER 48 HOURS > SHIGA TOXIN 1 AND 2 (EHEC) Final 10/04/11- 1216 ML SHIGA TOXIN 1 NEGATIVE BY IMMUNOCHROMATOGRAPHIC ASSAY SHIGA TOXIN 2 NEGATIVE BY IMMUNOCHROMATOGRAPHIC ASSAY > OVA PARASITE CONCEN - FULL Final 10/10/11- 1455 ML NO OVA PARASITES OBSERVED BY GAVIN ACETATE CONCENTRATION. NO CYSTS /OR TROPHOZOITES OBSERVED BY TRICHROME STAIN. CRYPTOSPORIDIUM, CYCLOSPORA AND MICROSPORIDIUM TESTING NOT ROUTINELY PERFORMED WITH FULL OVA AND PARASITE ANALYSIS. > O P: GIARDIA/CRYPTO SCREEN Final 10/04/11- 1217 ML GIARDIA ANTIGEN NEGATIVE BY IMMUNOASSAY CRYPTOSPORIDIUM ANTIGEN NEGATIVE BY IMMUNOASSAY DEPARTMENT OF PATHOLOGY, [address] [place] [address] [facility] Permit #[id number] Brissa Cummings M.D. Scenic Designer RUN DATE: 10/10/11 [facility] NMI LIVE PAGE 2 RUN TIME: 1455 Specimen Inquiry RUN USER: INTERFACE Name: HUMA BLUE Status: REG REF Re10/03/11 Age/Sex: 76/M Unit#: [id number] Location: [facility] : 36 -- -- CONTINU ED Procedure [...] is requested. Contact the Microbiology Department at [phone]. TEST LIMITATIONS: As with all diagnostic procedures, [...] recommended. > C. DIFFICILE AMPLIFIED DNA Final 10/04/11- 1444 ML C. DIFFICILE AMPLIF DNA NEGATIVE: NO [...] patients. > FECAL LACTOFERRIN (STOOL WBC) Final 10/03/11- 1456 ML FECAL LACTOFERRIN POSITIVE BY IMMUNOASSAY DEPARTMENT OF PATHOLOGY, [address] [place] [address] [facility] Permit #[id number] Jeb Reyes M.D. Director Iona Denise M.D. Scenic Designer RUN DATE: 10/10/11 [facility] NMI LIVE PAGE 3 RUN TIME: 1125 Specimen Inquiry RUN USER: INTERFACE Name: HUMA BLUE Status: REG REF Re10/03/11 Age/Sex: 76/M Unit#: [id number] Location: [facility] : 36 -- -- CONTINU ED Procedure Result Verified Site FECAL LACTOFERRIN (STOOL WBC) Final (continued) 10/03/11- 4502 TEST LIMITATIONS: Assay detects elevated levels of lactoferrin released from fecal leukocytes as a marker of intestinal inflammation. The test may not be appropriate in immunocompromised persons. Fecal samples from breast fed infants should not be used with this assay. [facility] Permit #[id number] [facility] [place][note 2] [facility] [address] DEPARTMENT OF PATHOLOGY, [facility] [place]note 2] Frequency [place], [place] [address] [facility] Permit #[id number] Jeb Reyes M.D. Director Iona Denise M.D. Scenic Designer 49 Anion gap measurement may be of limited value in the presence of any alkalosis, especially in a combined acid base disorder. . 50 A metabolite of Naproxen, O-desmethylnaproxen, has been shown to interfere with the Jendrassik-Lindsay method for measuring total bilirubin. Samples from patients who have taken Naproxen have shown spurious elevation in total bilirubin levels. 51 Because ethnic data is not always readily [...] 15-29 5 Kidney failure <15 (or dialysis) 52 Imm. NE 1 53 CHOLESTEROL INTERPRETATION: Desirable: Less than 200 MG/DL Borderline-High Risk: 200-239 MG/DL High-Risk: 240 MG/DL and over 54 HDL INTERPRETATION: Undesirable: High Risk: Less than 40 MG/DL Desirable: Low Risk: Greater than 60 MG/DL 55 LDL INTERPRETATION: Low Risk Optimal Level: LDL Less than 100 MG/DL Near or Above Optimal: LDL 100-129 MG/DL Borderline High Risk: LDL 130-159 MG/DL High Risk: LDL 160-189 MG/DL Very High Risk: LDL Greater than 189 MG/DL 56 Anion gap measurement may be of limited value in the presence of any alkalosis, especially in a combined acid base disorder. . 57 A metabolite of Naproxen, O-desmethylnaproxen, has been shown to interfere with the Jendrassik-Lindsay method for measuring total bilirubin. Samples from patients who have taken Naproxen have shown spurious elevation in total bilirubin levels. 58 Because ethnic data is not always [...] 5 Kidney failure <15 (or dialysis) 59 Anion gap measurement may be of limited value in the presence of any alkalosis, especially in a combined acid base disorder. . 60 Note change in reference range as of 01/23/08. The change was based on recommendations from the [place] [employer]. 61 Because ethnic data is not always readily [...] 15-29 5 Kidney failure <15 (or dialysis) 62 THERAPEUTIC TARGET FOR THE TREATMENT OF DIABETES MELLITUS PATIENTS IS <7% HBA1C, AND IN SELECTIVE PATIENTS <6.0%. PLEASE REFER TO [place] [employer] DIABETIC CARE GUIDELINES FOR FURTHER INFORMATION. 63 CHOLESTEROL INTERPRETATION: Desirable: Less than 200 MG/DL Borderline-High Risk: 200-239 MG/DL High-Risk: 240 MG/DL and over 64 HDL INTERPRETATION: Undesirable: High Risk: Less than 40 MG/DL Desirable: Low Risk: Greater than 60 MG/DL 65 LDL INTERPRETATION: Low Risk Optimal Level: LDL Less than 100 MG/DL Near or Above Optimal: LDL 100-129 MG/DL Borderline High Risk: LDL 130-159 MG/DL High Risk: LDL 160-189 MG/DL Very High Risk: LDL Greater than 189 MG/DL 66 * SERUM LEVELS OF PSA MEASURED USING THE BAKARI Sokolin ACCESS HYBRITECH IMMUNOASSAY SHOULD NOT BE INTERPRETED ABSOLUTE EVIDENCE OF THE PRESENCE OR ABSENCE OF DISEASE. THE PSA VALUE SHOULD BE USED IN CONJUNCTION WITH OTHER PERTINENT CLINICAL DIAGNOSTIC PROCEDURES. 67 Anion gap measurement may be of limited value in the presence of any alkalosis, especially in a combined acid base disorder. . 68 Note change in reference range as of 01/23/08. The change was based on recommendations from the [place] [employer]. 69 A metabolite of Naproxen, O-desmethylnaproxen, has been shown to interfere with the Jendrassik-[place] method for measuring total bilirubin. Samples from patients who have taken Naproxen have shown spurious elevation in total bilirubin levels. 70 Because ethnic data is not always readily [...] 15-29 5 Kidney failure <15 (or dialysis) 71 CHOLESTEROL INTERPRETATION: Desirable: Less than 200 MG/DL Borderline-High Risk: 200-239 MG/DL High-Risk: 240 MG/DL and over 72 HDL INTERPRETATION: Undesirable: High Risk: Less than 40 MG/DL Desirable: Low Risk: Greater than 60 MG/DL 73 LDL INTERPRETATION: Low Risk Optimal Level: LDL Less than 100 MG/DL Near or Above Optimal: LDL 100-129 MG/DL Borderline High Risk: LDL 130-159 MG/DL High Risk: LDL 160-189 MG/DL Very High Risk: LDL Greater than 189 MG/DL 74 ---- RUN DATE: 06/10/09 [facility] NMI LIVE PAGE 1 RUN TIME: 1526 Specimen Inquiry RUN USER: INTERFACE -- Name: HUMA BLUE Accapril#: [id number] Status: REG REF Re06/08/09 Age/Sex: 73/M Unit#: [id number] Location: [facility] : 36 -- Specimen: [id number] SOUT Spec Date: 06/08/[address]: Clayton liang MD Spec Type: SURGICAL P Received: 06/09/0931 Copies to: Yash Nevarez III, MD SPECIMEN [...] 06/10/09 1524 -- -- DEPARTMENT OF PATHOLOGY, [address] [place] [address] [facility] Permit #[id number] Brissa Cummings M.D. Twisting Press Operator Dir florentin -- 76 * SERUM LEVELS OF PSA MEASURED USING THE BAKARI Sokolin ACCESS HYBRITECH IMMUNOASSAY SHOULD NOT BE INTERPRETED ABSOLUTE EVIDENCE OF THE PRESENCE OR ABSENCE OF DISEASE. THE PSA VALUE SHOULD BE USED IN CONJUNCTION WITH OTHER PERTINENT CLINICAL DIAGNOSTIC PROCEDURES. 76 PATIENT MAY HAVE RESULTS PER DOCTOR'S AUTHORIZATION. Questions regarding this report should be directed to your doctor. FASTING 77 Anion gap measurement may be of limited value in the presence of any alkalosis, especially in a combined acid base disorder. . 78 Note change in reference range as of 01/23/08. The change was based on recommendations from the [place] [employer]. 79 Please note change in reference range effective 07 . 80 CHOLESTEROL INTERPRETATION: Desirable: Less than 200 MG/DL Borderline-High Risk: 200-239 MG/DL High-Risk: 240 MG/DL and over 81 HDL INTERPRETATION: Undesirable: High Risk: Less than 40 MG/DL Desirable: Low Risk: Greater than 60 MG/DL 82 LDL INTERPRETATION: Low Risk Optimal Level: LDL Less than 100 MG/DL Near or Above Optimal: LDL 100-129 MG/DL Borderline High Risk: LDL 130-159 MG/DL High Risk: LDL 160-189 MG/DL Very High Risk: LDL Greater than 189 MG/DL 83 PLEASE NOTE NEW REFERENCE RANGES. 84 * SERUM LEVELS OF PSA MEASURED USING THE BAKARI VONDA ACCESS HYBRITECH IMMUNOASSAY SHOULD NOT BE INTERPRETED ABSOLUTE EVIDENCE OF THE PRESENCE OR ABSENCE OF DISEASE. THE PSA VALUE SHOULD BE USED IN CONJUNCTION WITH OTHER PERTINENT CLINICAL DIAGNOSTIC PROCEDURES. 85 FASTING 86 Anion gap measurement may be of limited value in the presence of any alkalosis, especially in a combined acid base disorder. . 87 Classification: Borderline High . 88 CALCULATED LDL APPROXIMATES THE VALUE OF A DIRECT LDL MEASUREMENT. Classification: Near or above optimal . 89 * SERUM LEVELS OF PSA MEASURED USING THE BAKARI VONDA ACCESS HYBRITECH IMMUNOASSAY SHOULD NOT BE INTERPRETED ABSOLUTE EVIDENCE OF THE PRESENCE OR ABSENCE OF DISEASE. THE PSA VALUE SHOULD BE USED IN CONJUNCTION WITH OTHER PERTINENT CLINICAL DIAGNOSTIC PROCEDURES. Procedures Date CPT Code Description Status Comment 02/14/2017 48769 Treadmill Interp/Report Only Completed 02/14/2017 04351 Stress Test Supervsn W/Out Completed I/R 02/06/2017 82649 EKG Tracing & Interpretation Completed 02/06/2017 04730 EKG Tracing & Interpretation Completed 01/25/2017 48557 ECHO Transthorasic Realtime Completed 2D W Doppler & Color Flow Hosp 12/27/2016 47453 Closed TX Phalanx Completed finger/thumb shaft w/o manipulation 09/01/2016 82126 ECHO Transthorasic Realtime Completed 2D W Doppler & Color Flow Hosp 08/22/2016 16621 EKG Tracing & Interpretation Completed 02/29/2016 75071 ECHO Transthoracic, Real-Time Completed 2D With Doppler And Color Flow 02/02/2016 72993 EKG Tracing & Interpretation Completed 10/11/2014 28931 ECHO Transthorasic Realtime Completed 2D W Doppler & Color Flow Hosp 06/05/2014 18936 EKG Tracing & Interpretation Completed 05/04/2014 64965 Xray Knee 3 Views Completed 05/04/2014 75381 Rad Exam; Knee, Ap&L Completed 02/06/2014 04552 Intravascular Blood Flow Completed Velocity 02/06/2014 44966 Left Heart Cath. Incl S/I Completed Coronaries, Angio S/I V Gram If Done 01/27/2014 94518 ECHO Transthoracic, Real-Time Completed 2D With Doppler And Color Flow 01/22/2014 16588 ECHO Stress Test Incl Perf Completed Contiuous ekg Monitoring W/Phys Superv 01/22/2014 36757 ECHO Stress Test Incl Perf Completed Contiuous ekg Monitoring W/Phys Superv 11/14/2013 46733 EKG Tracing & Interpretation Completed 10/06/2013 20426 Xray Knee 3 Views Completed 07/24/2013 67325 EKG Tracing & Interpretation Completed 07/19/2013 14013 EKG, Interpretation Only Completed 07/18/2013 57940 Percutaneous Transcatheter Completed Placement Of Intracoronary Stent 07/18/2013 91154 EKG, Interpretation Only Completed 07/18/2013 76932 Left Health Catheterization Completed W/Inj For Left Ventriculography,S&I 07/18/2013 89896 Cath PLMT&NJX L Ventriculog Completed Img S&I 07/18/2013 53671 Left Heart Cath. Incl S/I Completed Coronaries, Angio S/I V Gram If Done 07/18/2013 94318 Cardiac Cath,LT Hrtmincl Completed Intraprocedural Ink LT Ventricul Mammary 07/07/2013 Mammogram Completed 07/04/2013 49931 ECHO Transthorasic Realtime Completed 2D W Doppler & Color Flow Hosp 07/04/2013 25759 EKG Tracing & Interpretation Completed 07/02/2013 59793 Treadmill Interp/Report Only Completed 07/02/2013 21830 Stress Test Supervsn W/Out Completed I/R 06/23/2013 39592 EKG Tracing & Interpretation Completed 05/30/2013 26369 Rad Exam; Knee Comp Completed 04/24/2013 12479 Xray Knee 3 Views Completed 04/16/2013 03706 Revision TKA W Or W/O Completed Allograft;Femoral & Entire Tibial Component 04/16/2013 13874 Revision TKA W Or W/O Completed Allograft;Femoral & Entire Tibial Component 02/26/2013 63163 EKG Tracing & Interpretation Completed 01/29/2013 64400 ECHO Transthoracic, Real-Time Completed 2D With Doppler And Color Flow 01/21/2013 97623 Inject/Drain Joint/Bursa Completed Major W/O US 11/07/2012 88591 Xray Knee 3 Views Completed 11/07/2012 34494 Rad Exam; Knee, Ap&L Completed 08/14/2012 44027 TKR Total Knee Replacement Completed 08/14/2012 03519 TKR Total Knee Replacement Completed 06/08/2012 72971 Treadmill Interp/Report Only Completed 06/08/2012 06970 Stress Test Supervsn W/Out Completed I/R 06/08/2012 66997 EKG, Interpretation Only Completed 05/15/2012 84419 Arthroscopy,Knee,Meniscectomy Completed Media & Lateral 05/15/2012 97055 Arthroscopy,Knee,Meniscectomy Completed Media & Lateral 05/02/2012 67447 EKG Tracing & Interpretation Completed 04/16/2012 69729 Inject/Drain Joint/Bursa Completed Major W/O US 12/13/2011 Colonoscopy Completed 11/30/2011 10206 Polysomnography Sleep Staging Completed 4+ Parameters W/Cpap 09/28/2011 29348 Stress Test Supervsn W/Out Completed I/R 09/28/2011 44574 Treadmill Interp/Report Only Completed 09/06/2011 26053 Holter Monitoring 24 HR New Completed 09/04/2011 60234 ECHO Stress Test Incl Perf Completed Contiuous ekg Monitoring W/Phys Superv 07/21/2011 68087 EKG Tracing & Interpretation Completed 07/04/2011 54870 Color Flow Doppler/Interp & Completed Reprt 07/04/2011 85138 Pulse Completed Wave/Continuous-Interp.RPT 07/04/2011 24481 ECHO Transthorasic Realtime Completed 2D W Doppler & Color Flow Hosp 01/04/2011 47975 EKG Tracing & Interpretation Completed 03/25/2010 15729 Admin Of Inj Completed 12/15/2009 Diabetic Retinal Eye Exam Completed Document: 12/15/09 - Consult Ophthalmology 06/08/2009 Colonoscopy Completed 08/05/2003 Colonoscopy Completed 03/31/1999 Colonoscopy Completed Encounters Type Date Location Provider CPT E/M Dx Office Visit 10/19/2017 2:20p [facility] Chriss Romero, 24769 I10 - Clement Centeno M.D.,FACP F33.1 E03.9 Office Visit 09/19/2017 2:40p [facility] Chriss Romero, 03274 I10 - Clement Centeno M.D.,FACP F41.9 Office Visit 03/21/2017 1:30p [facility] Vascular Medicine Aleksandr Simon M.D. 16685 I10 Of [facility] E78.5 Office Visit 03/01/2017 8:20a [facility] Chriss Romero, 45201 I70.1 - Clement Centeno M.D.,FACP I10 Office Visit 02/16/2017 3:40p [facility] Chriss Romero, 15872 R07.9 - Clement Centeno M.D.,FACP I25.110 I15.0 Office Visit 02/13/2017 2:33p [facility],DEBORAH Piña 94079 R07.9 Hospitalists G47.33 I25.110 I10 Office Visit 02/12/2017 2:30p [facility] Javon Coleman, 44999 Z86.73 Services Of Katerina Brumfield I10 E78.5 Z79.02 Office Visit 02/07/2017 2:00p [facility] Chriss Romero, 26217 I15.0 - Clement Centeno M.D.,FACP Z23 Office Visit 02/06/2017 1:30p [facility] DEBORAH Damon 07534 G45.8 I25.10 I10 E78.5 Office Visit 01/31/2017 1:40p [facility] Chriss Romero, 88440 G45.8 - [place] Jacobo Brumfield,FACP I10 E78.5 Office Visit 01/26/2017 2:08p [facility] Javon Coleman, 27579 G45.9 M.D. I10 Z79.02 Office Visit 01/26/2017 12:56p [facility], Enoc Figueroa M.D. 17324 G45.8 Hospitalists E78.5 I25.10 I10 Office Visit 01/25/2017 2:03p [facility] Javon Coleman, 15237 G45.9 M.DDana I10 Z79.02 Office Visit 01/25/2017 12:55p [facility] [facility], Roby Shaver, 40835 I63.9 Hospitalists N.P. E78.5 I25.10 I10 Office Visit 01/03/2017 10:30a [facility] Internal Chriss Romero, 51034 I25.10 Medicine - [place] Jacobo Brumfield,FACP S62.627D E03.9 I10 I63.411 F33.1 Office Visit 09/01/2016 11:17a [facility],pc Kecia Snowden, HERBER 18868 R42 Hospitalists Z86.73 I25.10 G47.33 Office Visit 08/31/2016 11:16a [facility] Percy Meier, 37558 R42 Assoc, [place] Hospitalists Z86.73 I25.10 G47.33 Office Visit 08/22/2016 3:00p [facility] Qutaybeh SDana Hahn, 10814 I35.0 M.D. I10 I25.10 I34.0 Office Visit 02/02/2016 2:00p [facility] Qutaybeh S. Criseldaydlopez, 02879 I10 M.D. I25.10 I34.0 I35.0 Office Visit 08/16/2015 8:45a [facility] Rivera M.D. 47160 Z96.652 C.M.A. Office Visit 06/01/2015 10:45a [facility] Quirino Giles, 78528 I63.511 Services Of Katerina Brumfield Office Visit 05/10/2015 10:45a [facility] eTmi Rivera M.D. 63352 Z47.1 C.M.A. Z96.652 Office Visit 02/03/2015 10:00a [facility] Quirino Giles, 56105 434.91 M.DDana Office Visit 10/28/2014 9:47a [facility] [address] 434.91 Office Visit 10/11/2014 3:00p [facility] Quirino Giles, 73315 434.91 M.DDana 435.9 414.01 Office Visit 10/11/2014 7:08p [facility] Rosalee Gandara, 34996 434.91 Hospitalists Brissa 401.9 244.9 Office Visit 10/10/2014 7:07p [facility] Loc Cordova, 30793 434.91 Assoc, Hospitalists M.DDana 401.9 244.9 272.4 Office Visit 10/10/2014 2:34p [facility] Quirino Giles, 12263 434.91 M.DDana 435.9 Office Visit 10/09/2014 7:06p [facility], Enoc Figueroa M.D. 64827 434.91 Hospitalists 401.9 244.9 272.4 Office Visit 06/05/2014 3:20p [facility] Qutaybeh S. Jovani, 63544 414.01 M.DDana V45.82 401.1 424.0 Office Visit 05/04/2014 11:30a [facility] Rivera M.D. 77666 715.96 C.M.A. 719.46 Office Visit 02/10/2014 5:00p [facility] Qutaybeh S. Jovani, 99814 414.01 M.DDana V45.82 401.1 Office Visit 02/07/2014 10:03a [facility] Qutaybeh S. Jovani, 94991 414.9 M.D. Office Visit 02/06/2014 3:22p [facility] Romietaybsugey SDana Hahn, 12717 794.39 M.D. 794.31 414.9 Office Visit 01/28/2014 1:20p [facility] Romietaybsugey S. Jovani, 91842 414.01 M.D. 424.0 424.1 V45.82 Office Visit 01/22/2014 11:30a [facility] Romietaybsugey S. Jovani, 53120 414.01 M.D. 424.0 424.1 V45.82 Office Visit 11/14/2013 8:20a [facility] Romietaybsugey S. Jovani, 78616 414.01 M.D. 424.0 397.0 424.1 401.0 272.2 Office Visit 10/06/2013 10:00a [facility] Rivera M.D. 96253 719.46 C.M.A. 715.96 Office Visit 07/24/2013 3:40p [facility] Romietaybsugey S. Jovani, 78826 414.01 M.D. 424.0 397.0 424.1 785.2 Office Visit 07/18/2013 11:30a [facility] Romietaybsugey S. Jovani, 85471 786.50 M.D. 786.05 794.39 Office Visit 07/04/2013 4:00p [facility] Romietaybsugey S. Jovani, 47942 414.01 M.D. 786.50 424.0 397.0 424.1 Office Visit 07/02/2013 9:30a [facility] Romietaybsugey S. Jovani, 05391 786.50 M.D. 414.9 Office Visit 06/23/2013 1:40p [facility] Qutaybsugey S. Criseldaydlopez, 79677 414.01 M.D. 786.50 424.0 397.0 424.1 785.2 782.3 Office Visit 02/26/2013 3:00p [facility] Romietaybsugey S. Jovani, 46282 414.01 M.D. 412 424.1 424.0 Office Visit 01/21/2013 9:15a [facility] Neymar Marrero M.D. 97888 996.78 C.M.A. 715.96 V43.65 996.77 Office Visit 01/07/2013 9:30a [facility] Neymar Marrero M.D. 32611 996.78 C.M.A. Office Visit 08/17/2012 1:23p [facility], Patricia Whelan N.P. 26354 276.8 Hospitalists 780.97 Office Visit 06/08/2012 11:51a [facility], Enoc Figueroa M.D. 81723 786.51 Hospitalists 401.9 272.2 285.9 Office Visit 06/07/2012 11:50a [facility], Cassidy Moeller 33075 786.51 Hospitalists D.O. 401.9 272.2 285.9 Office Visit 06/07/2012 2:00p [facility] Olaf Hahn, 43853 414.01 M.DDana 401.1 434.11 Office Visit 05/02/2012 8:30a [facility] Medicine Shauna Chávez N.P. 47600 836.0 - Zo 786.03 414.01 401.1 434.11 272.2 V72.84 244.9 Office Visit 04/29/2012 8:30a [facility] Neymar Marrero M.D. 60080 836.0 C.M.A. Office Visit 04/16/2012 2:30p [facility] Neymar Marrero M.D. 35800 715.36 C.M.A. 727.49 719.06 Office Visit 03/27/2012 3:40p [facility] Yash Nevarez, 35162 729.5 - Zo Brumfield Office Visit 03/22/2012 10:20a [facility] Yash Nevarez, 07739 719.46 - Zo Brumfield 729.5 Office Visit 10/19/2011 10:20a [facility] Yash Nevarez, 77352 787.91 - Zo Brumfield Office Visit 10/06/2011 10:40a [facility] S. 65646 414.01 Brissa Hahn 401.1 272.4 424.0 424.1 Office Visit 09/20/2011 2:20p [facility] 88883 787.91 - [place] Brissa 434.11 Office Visit 09/04/2011 2:30p [facility], 77678 401.1 M.DDana 414.01 794.31 Office Visit 07/21/2011 10:00a [facility] S. [place]ty, 95014 401.1 M.DDana 272.2 414.01 794.31 424.0 424.1 434.11 Office Visit 07/13/2011 10:00a [facility] 36914 434.11 Zo Brumfield 401.1 272.2 414.01 Office Visit 01/04/2011 10:00a DO Not Use [employer] AT [facility], 66500 V70.0 [facility] 401.1 414.01 272.0 790.21 244.9 724.1 530.81 Office Visit 07/06/2010 10:20a DO Not Use [employer] AT [facility], 46490 401.1 [facility] 414.01 272.0 790.21 Office Visit 02/16/2010 3:00p DO Not Use [employer] [facility], 24428 401.1 [facility] 272.2 414.01 244.9 Office Visit 02/10/2010 11:00a DO Not Use [employer] [facility], 28266 V72.81 [facility] 401.1 272.2 414.01 244.9 Office Visit 05/04/2009 2:00p DO Not Use [employer] [facility], 76718 401.1 [facility] 272.2 414.01 244.9 311 787.20 Office Visit 03/30/2008 1:45p [facility], 01342 465.9 [facility] 10/10/2007 10:00a [facility], 46290 272.0 [facility] 414.01 401.1 Office Visit 04/10/2007 10:45a [facility], 02947 272.2 [facility] 244.9 796.2 414.01 Office Visit 03/25/2007 2:45p 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 Other causes could be an infection. Please do a stool test to investigate if you have an infection ; follow the directions explained by the nurse. Please discontinue Ezetimibe medication.E03.9 Hypothyroidism, unspecifiedComments:Your dose for Levothyroxine was decreased two weeks ago to 125 mcg. Please continue this dose of Levothyroxine as prescribed. We will check your thyroid levels in a couple of months.
[2017-12-08 11:05] LABS: ABS Basophils 0 10^3/ul (0-0.2); ABS Eosinophils 0.1 10^3/ul (0-0.6); ABS Lymphocytes 1.2 10^3/ul (1.0-4.8); ABS Monocytes 0.5 10^3/ul (0-0.8); ABS Neutrophils 3.5 10^3/ul (1.5-7.7); ABS Nucleated RBC 0 10^3/ul; Eosinophil % 1.3 % (0-6); Hematocrit 40 % (42-52); Hemoglobin 13.6 g/dl (14.0-18.0); Lymphocyte % 23.1 % (25-47); Mean Corpuscular HGB Conc 34 g/dl (31-36); Mean Corpuscular Hemoglobin 30 pg (27-31); Mean Corpuscular Volume 88 fL (80-94); Mean Platelet Volume 7.8 um3 (7.4-10.4); Nucleated Red Blood Cells % 0; Platelet Count 162 10^3/ul (150-450); Red Blood Count 4.54 10^6/ul (4.00-5.40); Red Cell Distribution Width 14 % (10.5-15); White Blood Count 5.3 10^3/ul (3.5-10.8)
[2017-12-08 11:13] LABS: INR 0.94 (0.77-1.02)
[2017-12-08 11:24] LABS: EGFR Non-African American 86.5 (>60)
--- NOTE | 2017-12-08 11:28 | RAD ---
INDICATION: TIA. COMPARISON: Comparison is made with a prior study from February 13, 2017. TECHNIQUE: A portable view of the chest was obtained. FINDINGS: The heart is within normal limits in size. The lungs are clear. No pleural effusion is seen. IMPRESSION: NO EVIDENCE FOR ACUTE DISEASE.
--- NOTE | 2017-12-08 11:34 | RAD ---
INDICATION: TIA. COMPARISON: Comparison is made with a prior CT of the brain from January 25, 2017. TECHNIQUE: Contiguous axial sections of the brain were obtained from the skull base to the vertex without contrast. FINDINGS: The ventricles, cisterns and sulci are enlarged consistent with diffuse atrophy. There are multiple focal areas of decreased density in the subcortical and periventricular white matter suggestive of severe chronic small vessel ischemic changes. In addition there is a focal area of encephalomalacia present in the posterior right parietal lobe which is unchanged consistent with an old infarct. No other focal abnormality or mass effect is seen. No significant focal osseous abnormality is seen. The visualized portion of the paranasal sinuses and mastoid air cells appear clear. IMPRESSION: 1. NO EVIDENCE FOR GROSS ACUTE INFARCT, MASS EFFECT OR HEMORRHAGE. 2. OLD RIGHT PARIETAL LOBE INFARCT. 3. ATROPHY AND FINDINGS CONSISTENT WITH SEVERE CHRONIC SMALL VESSEL ISCHEMIC CHANGES.
[2017-12-08] MEDS ORDERED: Ondansetron INJ* 2 MG/ML VIAL IV PRN (13:29)
[2017-12-08] MEDS ORDERED: Acetaminophen TAB* 325 MG PO PRN (13:29)
[2017-12-08] MEDS ORDERED: Iohexol 350* (CONTRAST) 500 ML MDV IV ONE (13:33)
[2017-12-08] MEDS ORDERED: Potassium Chlor TAB* 20 MEQ TAB.ER PO ONE (13:45)
--- NOTE | 2017-12-08 14:18 | RAD ---
INDICATION: TIA versus CVA, visual disturbance. COMPARISON: Comparison is made with a prior CT of the brain from December 08, [address] angiogram of the head and neck from January 25, 2017. TECHNIQUE: A CT angiogram of the head and neck was performed following intravenous injection of 80 ml of Omnipaque 350 nonionic contrast. Contiguous axial sections were obtained from the thoracic inlet through the skull vertex. Images were reconstructed in the coronal and sagittal planes and in a 3-D volume rendered format. The distal cervical internal carotid artery diameter is used as the denominator for stenosis measurement. FINDINGS: RIGHT CAROTID: The common and internal carotid arteries appear widely patent without evidence for stenosis. LEFT CAROTID: The common carotid artery appears widely patent. There is moderate calcific plaque within the carotid bulb and proximal internal carotid artery giving rise to approximately a 50% stenosis which is unchanged. VERTEBRALS: The vertebral arteries appear patent. There is mild calcific plaque present. CTA BRAIN: There is mild to moderate calcific plaque within the cavernous portion of the internal carotid arteries on both sides. No significant stenosis is seen. The anterior and middle cerebral arteries appear widely patent. The vertebral, basilar and posterior cerebral arteries appear patent without evidence for high-grade stenosis or occlusion. The left posterior cerebral artery arises from the posterior communicating artery consistent with normal variation. No gross focal perfusion abnormalities are seen. No aneurysm or vascular malformation is seen. NECK: There is focal increased soft tissue density present in the left tonsillar fossa and at the base of the tongue on the left side which may represent mucosal redundancy although a mass cannot be excluded recommend direct inspection for further evaluation. No significant enlarged lymph nodes are seen within the neck. The parotid and submandibular glands appear to be within normal limits. The thyroid gland appears atrophic. There is a small nodule in the left lobe measuring 0.3 cm in size. There is bilateral apical pleural-parenchymal scarring. The lung apices are otherwise clear. The paranasal sinuses and mastoid air cells appear clear IMPRESSION: 1. NO EVIDENCE FOR HEMODYNAMICALLY SIGNIFICANT CAROTID STENOSIS. 2. NO EVIDENCE FOR LARGE VESSEL INTRACRANIAL THROMBUS. 3. THERE IS INCREASED SOFT TISSUE DENSITY PRESENT AT THE BASE OF THE TONGUE ON THE LEFT SIDE AND IN THE LEFT TONSILLAR FOSSA POSSIBLY REPRESENTING MUCOSAL REDUNDANCY ALTHOUGH A MASS CANNOT BE EXCLUDED. RECOMMEND DIRECT INSPECTION. CPT II Codes: 3100F
--- NOTE | 2017-12-08 14:37 | ED ---
Johan Null Tariq, scribed for Yakov Holcomb MD on 12/08/17 at 1023 . Throat Pain/Nasal Congestion - HPI Summary HPI Summary: A 82 y/o male presents to the ED c/o vision changes. According to the pt, he has difficulty reading as the words were jumping around on the page and could not follow them. One hour ago the "words were dancing around". Currently, he feels fine with no other problems that are known and can read with no issues, however, he feels a "inner vibration". The pt stated that he tried putting a straight edge on the reading, however, it did not alleviate the Sx. 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 As per family, additional symptoms with the CVA included left-side negligence. He had difficulty with vision and trouble with routine activities. 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 PCP is Dr. Romero. Pt is currently on blood thinners. - History of Current Complaint Chief Complaint: EDEyeProblem Time Seen by Provider: 12/08/17 10:19 Hx Obtained From: Patient Onset/Duration: Sudden Onset, Lasting Hours - 1 hour ago, Resolved - Currently can read with no discrepancies. Cough: None Related History: Other (Noted In Comments) - CVA 4.5 years ago with the same symptoms - Allergies/Home Medications Allergies/Adverse Reactions: Allergies Allergy/AdvReac Type Severity Reaction Status Date / Time cephalexin Allergy Unknown Verified 12/08/17 10:03 Reaction Details morphine AdvReac Hallucinati Verified 12/08/17 13:47 ons PMH/Surg Hx/FS Hx/Imm Hx Endocrine/Hematology History: Reports: Hx Anticoagulant Therapy - plavix and ASA , Hx Thyroid Disease, Hx Anemia - SLIGHT Denies: Hx Diabetes Cardiovascular History: Reports: Hx Angina, Hx Coronary Artery Disease, Hx Hypercholesterolemia, Hx Hypertension, Hx Myocardial Infarction Denies: Hx Congestive Heart Failure, Hx Pacemaker/ICD, Other Cardiovascular Problems/Disorders Respiratory History: Reports: Hx Sleep Apnea - has CPAP Denies: Hx Asthma, Hx Chronic Obstructive Pulmonary Disease (COPD), Other Respiratory Problems/Disorders GI History: Reports: Hx Gastroesophageal Reflux Disease, Hx Ulcer - Gastric, Other GI Disorders - ? gerd History: Reports: Other Problems/Disorders - ENLARGE PROSTATE Denies: Hx Renal Disease Musculoskeletal History: Reports: Hx Arthritis - LEFT KNEE, Hx Osteoporosis - LEFT KNEE, Other Musculoskeletal History - knee surgery Sensory History: Reports: Hx Cataracts, Hx Contacts or Glasses, Hx Hearing Aid, Other Sensory Impairments - left visual cut after CVA Opthamlomology History: Reports: Hx Cataracts, Hx Contacts or Glasses, Other Sensory Impairments - left visual cut after CVA Neurological History: Reports: Hx CVA - stroke 2011 and 10/2014 - Lt deficits, Other Neuro Impairments/Disorders - CVA Denies: Hx Dementia, Hx Seizures Psychiatric History: Reports: Hx Anxiety - ONCE IN A WHILE Denies: Hx Panic Disorder, Hx Substance Abuse - Surgical History Surgery Procedure, Year, and Place: RIGHT ENDAREDECTOMY; CARDIAC STENTS PLACED; RIGHT SHOULDER ROTATOR CUFF REPAIR; PARTIAL THYROIDECTOMY; LEFT KNEE REPLACEMENT ; RIGHT BUNIONECTOMY; RIGHT KNEE ARTHROSCOPE; Hx Anesthesia Reactions: No Infectious Disease History: No Infectious Disease History: Reports: Hx Shingles - 30 years ago Denies: Hx Clostridium Difficile, Hx Hepatitis, Hx Human Immunodeficiency Virus (HIV), Hx of Known/Suspected MRSA, Hx Tuberculosis, Hx Known/Suspected VRE , Hx Known/Suspected VRSA, History Other Infectious Disease, Traveled Outside the [place] in Last 30 Days - Family History Known Family History: Positive: Cardiac Disease - Social History Alcohol Use: None Hx Substance Use: No Substance Use Type: Reports: None Hx Tobacco Use: Yes Smoking Status (MU): Former Smoker Type: Cigarettes Amount Used/How Often: 3 packs a day 39 years ago Have You Smoked in the Last Year: No Review of Systems Negative: Fever Positive: Other - POSITIVE: Vision changes All Other Systems Reviewed And Are Negative: Yes Physical Exam - Summary Physical Exam Summary: Appearance: The patient is well-nourished in no acute distress and in no acute pain. Skin: The skin is warm and dry and skin color reflects adequate perfusion. HEENT: The head is normocephalic and atraumatic. The pupils are equal and reactive. The conjunctivae are clear and without drainage. Nares are patent and without drainage. Mouth reveals moist mucous membranes and the throat is without erythema and exudate. The external ears are intact. The ear canals are patent and without drainage. The tympanic membranes are intact. Neck: The neck is supple with full range of motion and non-tender. There are no carotid bruits. There is no neck vein distension. Respiratory: Chest is non-tender. Lungs are clear to auscultation and breath sounds are symmetrical and equal. Cardiovascular: Heart is regular rate and rhythm. Soft systolic ejection murmur. There is no peripheral edema and pulses are symmetrical and equal. Abdomen: The abdomen is soft and non-tender. There are normal bowel sounds heard in all four quadrants and there is no organomegaly palpated. Musculoskeletal: There is no back tenderness noted. Extremities are non-tender with full range of motion. There is good capillary refill. There is no peripheral edema or calf tenderness elicited. Neurological: Patient is alert and oriented to person, place and time. The patient has symmetrical motor strength in all four extremities. Cranial nerves are grossly intact. Deep tendon reflexes are symmetrical and equal in all four extremities. Psychiatric: The patient has an appropriate affect and does not exhibit any anxiety or depression. GCS: 15 Triage Information Reviewed: Yes Vital Signs On Initial Exam: Initial Vitals Temp Pulse Resp BP Pulse Ox 98.9 F 84 16 121/61 98 12/08/17 09:57 12/08/17 09:57 12/08/17 09:57 12/08/17 09:57 12/08/17 09:57 Vital Signs Reviewed: Yes Diagnostics - Vital Signs Vital Signs Temp Pulse Resp BP Pulse Ox 12/08/17 09:57 98.9 F 84 16 121/61 98 - Laboratory Lab Results: Lab Results 12/08/17 12/08/17 12/08/17 Range/Units 10:58 10:58 10:58 WBC 5.3 (3.5-10.8) 10^3/ul RBC 4.54 (4.00-5.40) 10^6/ul Hgb 13.6 L (14.0-18.0) g/dl Hct 40 L (42-52) % MCV 88 (80-94) fL MCH 30 (27-31) pg MCHC 34 (31-36) g/dl RDW 14 (10.5-15) % Plt Count 162 (150-450) 10^3/ul MPV 7.8 (7.4-10.4) um3 Neut % (Auto) 66.3 (38-83) % Lymph % (Auto) 23.1 L (25-47) % Adams % (Auto) 8.9 H (0-7) % Eos % (Auto) 1.3 (0-6) % Baso % (Auto) 0.4 (0-2) % Absolute Neuts (auto) 3.5 (1.5-7.7) 10^3/ul Absolute Lymphs (auto) 1.2 (1.0-4.8) 10^3/ul Absolute Monos (auto) 0.5 (0-0.8) 10^3/ul Absolute Eos (auto) 0.1 (0-0.6) 10^3/ul Absolute Basos (auto) 0 (0-0.2) 10^3/ul Absolute Nucleated RBC 0 10^3/ul Nucleated RBC % 0 INR (Anticoag Therapy) 0.94 (0.77-1.02) Sodium 140 (135-145) mmol/L Potassium 3.4 L (3.5-5.0) mmol/L Chloride 100 L (101-111) mmol/L Carbon Dioxide 34 H (22-32) mmol/L Anion Gap 6 (2-11) mmol/L BUN 12 (6-24) mg/dL Creatinine 0.85 (0.67-1.17) mg/dL Est GFR ( Amer) 104.7 (>60) Est GFR (Non-Af Amer) 86.5 (>60) BUN/Creatinine Ratio 14.1 (8-20) Glucose 131 H (70-100) mg/dL Lactic Acid (0.5-2.0) mmol/L Calcium 8.8 (8.6-10.3) mg/dL Magnesium 2.1 (1.9-2.7) mg/dL Total Bilirubin 0.40 (0.2-1.0) mg/dL AST 16 (13-39) U/L ALT 18 (7-52) U/L Alkaline Phosphatase 65 (34-104) U/L Troponin I 0.00 (<0.04) ng/mL Total Protein 6.5 (6.4-8.9) g/dL Albumin 3.7 (3.2-5.2) g/dL Globulin 2.8 (2-4) g/dL Albumin/Globulin Ratio 1.3 (1-3) TSH 0.75 (0.34-5.60) mcIU/mL 12/08/17 Range/Units 10:58 WBC (3.5-10.8) 10^3/ul RBC (4.00-5.40) 10^6/ul Hgb (14.0-18.0) g/dl Hct (42-52) % MCV (80-94) fL MCH (27-31) pg MCHC (31-36) g/dl RDW (10.5-15) % Plt Count (150-450) 10^3/ul MPV (7.4-10.4) um3 Neut % (Auto) (38-83) % Lymph % (Auto) (25-47) % Adams % (Auto) (0-7) % Eos % (Auto) (0-6) % Baso % (Auto) (0-2) % Absolute Neuts (auto) (1.5-7.7) 10^3/ul Absolute Lymphs (auto) (1.0-4.8) 10^3/ul Absolute Monos (auto) (0-0.8) 10^3/ul Absolute Eos (auto) (0-0.6) 10^3/ul Absolute Basos (auto) (0-0.2) 10^3/ul Absolute Nucleated RBC 10^3/ul Nucleated RBC % INR (Anticoag Therapy) (0.77-1.02) Sodium (135-145) mmol/L Potassium (3.5-5.0) mmol/L Chloride (101-111) mmol/L Carbon Dioxide (22-32) mmol/L Anion Gap (2-11) mmol/L BUN (6-24) mg/dL Creatinine (0.67-1.17) mg/dL Est GFR ( Amer) (>60) Est GFR (Non-Af Amer) (>60) BUN/Creatinine Ratio (8-20) Glucose (70-100) mg/dL Lactic Acid 1.5 (0.5-2.0) mmol/L Calcium (8.6-10.3) mg/dL Magnesium (1.9-2.7) mg/dL Total Bilirubin (0.2-1.0) mg/dL AST (13-39) U/L ALT (7-52) U/L Alkaline Phosphatase (34-104) U/L Troponin I (<0.04) ng/mL Total Protein (6.4-8.9) g/dL Albumin (3.2-5.2) g/dL Globulin (2-4) g/dL Albumin/Globulin Ratio (1-3) TSH (0.34-5.60) mcIU/mL Result Diagrams: 12/08/17 10:58 12/08/17 10:58 Lab Statement: Any lab studies that have been ordered have been reviewed, and results considered in the medical decision making process. - Radiology CXR Xray Interpretation: No Acute Changes Radiology Interpretation Completed By: Radiologist - NO EVIDENCE FOR ACUTE DISEASE. ED PHYSICIAN REVIEWED THIS RADIOLOGY REPORT. - CT BRAIN CT CT Interpretation Completed By: Radiologist - 1. NO EVIDENCE FOR GROSS ACUTE INFARCT, MASS EFFECT OR HEMORRHAGE. 2. OLD RIGHT PARIETAL LOBE INFARCT. 3. ATROPHY AND FINDINGS CONSISTENT WITH SEVERE CHRONIC SMALL VESSEL ISCHEMIC CHANGES. ED PHYSICIAN REVIEWED THIS RADIOLOGY REPORT. - EKG 1053 Cardiac Rate: NL - 64 BPM EKG Rhythm: Sinus Rhythm EKG Interpretation: NO CHANGE FROM 09/17/2017 EKG Comparison: No Significant Change - 09/17/2017 Re-Evaluation - Re-Evaluation First Eval Re-Evaluation Time: 12:37 Comment: DISCUSSED PLAN WITH PATIENT EENT Course/Dx - Course Course Of Treatment: Mr. Black presents with visual symptoms that are the same as he had with his stroke 4-5 years ago. At that time he also had a left karime-neglect. With PT and he has been free of residual symptoms. He couldn't read this morning because the letters were jumping around on the page. It occurred about an hour prior to presentation and only lasted a few minutes. His initial preliminary workup is negative. I don't know whether this represents a TIA or as a result of the weekend state bringing back some of his previous symptomatology. Dr. Haas was contacted and recommended CTA and admission and the hospitalist service was consulted. - Diagnoses Provider Diagnoses: TIA (transient ischemic attack) - Provider Notifications Discussed Care Of Patient With: Loc Cordova - Will see patient Discharge - Sign-Out/Discharge Documenting (check all that apply): Discharge/Admit/Transfer - ADMIT - Discharge Plan Condition: Stable Disposition: [facility]MITTED TO [facility] - Billing Disposition and Condition Condition: STABLE Disposition: Admitted to [facility] NIH Scale - NIH Scale Level of Consciousness: Alert/Keenly Responsive Ask Patient the Month and His/Her Age: Both Correct Ask Pt to Open/Close Eyes and Maintenance Chief/Release Non-Paretic Hand: Both Correctly Best Gaze (Only Horizontal Eye Movement): Normal Visual Field Testing: No Visual Loss Facial Paresis-Pt to Smile & Close Eyes or Grimace Symmetry: Minor Paralysis - Left-side Motor Function - Right Arm: No Drift-Holds 10 Seconds Motor Function - Left Arm: No Drift-Holds 10 Seconds Motor Function - Right Leg: No Drift-Holds 10 Seconds Motor Function - Left Leg: No Drift-Holds 10 Seconds Limb Ataxia-Must be out of Proportion to Weakness Present: Absent Sensory (Use Pinprick to Test Arms/Legs/Trunk/Face): Normal Best Language (Describe Picture, Name Items): No Aphasia Dysarthria (Read Several Words): Normal Extinction and Inattention: No Abnormality Total Score: 1 The documentation as recorded by the Johan chambers Tariq accurately reflects the service I personally performed and the decisions made by me, Yakov Holcomb MD.
[2017-12-08] MEDS: Heparin VIAL(*) 5000 UNITS/ML VIAL (FIVE THOUSAND) SUBCUT SCH ×2 (15:17→23:01)
--- NOTE | 2017-12-08 16:28 | HP ---
CC: Dr. Chriss Romero; Dr. Hahn * MEDICINE HISTORY AND PHYSICAL: DATE OF ADMISSION: 12/08/17 PROVIDER: Khloe Crews NP. ATTENDING PHYSICIAN: Dr. Loc Cordova * (dictated by Khloe Crews NP). PRIMARY CARE PROVIDER: Dr. Chriss Romero. PRIMARY OIL WELL FISHING TOOL OPERATOR: Dr. Hahn. CONSULTING UROLOGIST: Dr. Haas. CHIEF COMPLAINT: Visual disturbance. HISTORY OF PRESENT ILLNESS: Mr. 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 He presents today with concern for visual disturbance. Mr. Black reports that he woke up this morning and thinks it was approximately around 7:30 a.m. He had woken up previously overnight with new noted concerns. About an hour after waking up, he states that he was attempting to read the news paper as it was lying on the table and felt that the words were jumbled. He had difficulties tracking the words and could not tell or differentiate between either eye. He denies that it was double vision. He states that he can and could recognize the words that were on the page, he just had difficulty following them. He also reports that he had some right hand "finger vibrations" and also qualifies his feeling as jumpy. He also felt cold. Given these symptoms and his previous strokes, his recommended that he come in to the ER and brought him here to the hospital for further evaluation. He does have a history of right parietal CVA with left- sided neglect per his , this has since improved; however, he does state that since his stroke that he can no longer participate in the activities he enjoys such as bike riding due to he residual weaknesses. During his time here , he does report some improvement in his ability to be able to read and process words on the page. He denies any chest pain, trouble breathing. He denies any headache. He denies any recent cold or flu-like symptoms or fevers. He denies abdominal pain, nausea, vomiting, diarrhea. He denies any difficulty urinating , hematuria. He denies any dysphagia, joint pains, muscle pains, new rashes or lesions. PAST MEDICAL HISTORY: Significant for: 1. Previous CVA. 2. Coronary artery disease with PA in 2013, status post catheterization and stent placement. 3. Hypertension. 4. Hyperlipidemia. 5. Obstructive sleep apnea with CPAP use. 6. Depression. 7. Anxiety. 8. Hypothyroidism. PAST SURGICAL HISTORY: Includes: 1. Thyroidectomy in 1980. 2. History of carotid endarterectomy. 3. History of left total knee replacement in 2012. 4. History of right rotator cuff surgery in 1990. 5. History of cataract surgery. 6. History of cardiac catheterization. HOME MEDICATIONS: 1. Atorvastatin 80 mg q.p.m. 2. Abilify 5 mg q.p.m. 3. Aspirin 325 mg q.a.m. 4. Plavix 75 mg q.a.m. 5. Levothyroxine 125 mg q.a.m. 6. Tamsulosin 0.4 mg q.p.m. 7. Finasteride 5 mg q.p.m. 8. Atenolol 50 mg q.a.m. 9. Trazodone 50 mg q.p.m. 10. Amlodipine 10 mg q.p.m. This list was obtained from the patient's , who has all of his medication listed on a piece of paper. ALLERGIES: Include CEPHALEXIN and MORPHINE. FAMILY HISTORY: He reports her father, who had a history of CVA and coronary artery disease. He also reports a brother who has a history of coronary artery disease, and a sister who of leukemia at age 85. SOCIAL HISTORY: He reports a 4-pack a day smoking history from ages 16 to ages 39. He denies any alcohol use and has stopped drinking as a whole since his stroke. He denies any history of illicit drug use. He is retired. He is . He has 3 children and his , Laurita Black, is his healthcare proxy. REVIEW OF SYSTEMS: A 12-point review of systems was completed. All pertinent positives and negatives as per HPI. All others not mentioned are negative. PHYSICAL EXAMINATION GENERAL: This is a well-developed, well-nourished, older male patient, lying in bed, in no acute distress. VITAL SIGNS: Temperature 97.9, heart rate 52, respiratory rate 16, blood pressure 121/60 and O2 saturation 98% on room air. HEENT: Head is normocephalic. The patient does have a left-sided facial droop most notably at the mouth. Pupils are equal, round and reactive to light. Extraocular movements are intact. Peripheral vision is grossly intact. Oral mucosa is moist. There is no erythema or exudate or lesions noted. NECK: Supple with full range of motion and nontender. There are no carotid bruits. There is no JVD noted. No adenopathy appreciated. RESPIRATORY: Lungs are clear to auscultation. CARDIAC: S1 and S2 heart sounds with regular rate and rhythm. I may have appreciated a soft systolic murmur best heard along the left upper sternal border. There is trace peripheral edema to the bilateral lower extremities. Distal pulses are 2+ symmetric and equal. ABDOMEN: Soft, nontender, nondistended. Bowel sounds are normoactive. MUSCULOSKELETAL: The patient actively moves all 4 extremities and there is full range of motion. There is no clubbing or cyanosis. NEURO: Cranial nerves II through XII are grossly intact. There is symmetrical motor strength in all 4 extremities. There is no pronator drift. Finger-to- nose and ganomq-or-objamc motions are intact. [id number]-tc-[id number] is intact. PSYCH: He is alert and oriented x3. Affect is appropriate. Last NIH stroke scale was 1 in the ER prior to admission. SKIN: Appears grossly intact. DIAGNOSTIC STUDIES/LAB DATA: CBC: WBC 5.3, hemoglobin 13.6, hematocrit 40, platelet count 162. INR 0.94. CMP: Sodium 140, potassium 3.4, chloride 100, carbon dioxide 34, BUN 12, creatinine 0.85. Glucose 131, lactic acid 1.5, calcium 8.8, magnesium 2.1, total bilirubin 0.4, AST 16, ALT 18 and alk phos 65. Troponin 0.0. Albumin 3.7, TSH 0.75. EKG shows sinus rhythm with borderline interventricular conduction delay. No significant ST or T-wave changes. CT of the brain, impression: No evidence for gross acute infarct, mass effect or hemorrhage. Old right parietal lobe infarct and atrophy and findings consistent with severe chronic small vessel ischemic changes. Chest x-ray shows no evidence for acute disease. Old medical records were reviewed. ASSESSMENT AND PLAN: This is an 82-year-old gentleman with a history significant for previous cerebrovascular accident, hypertension, hyperlipidemia , coronary artery disease, obstructive sleep apnea, depression, anxiety and hypothyroidism who presents today with visual disturbances concerning for potential transient ischemic attacks or new cerebrovascular accident. He will be admitted under observation status to the telemetry floor. Plan is as follows : 1. Suspected transient ischemic attack versus cerebrovascular accident. We will admit him to telemetry and monitor him on the potline monitor for any signs of arrhythmias. Additionally, we will order neuro checks. We will obtain a CT of the head and neck as he last had one last year. He will also have an echo and we will recheck a lipid profile, A1c and likely an MRI given his risk factors. He is already on dual therapy with aspirin and Plavix, which we will continue. We will also continue his statins. Given the concerns for potential neurological event and also hypertension, although he is currently not hypertensive, we will hold his anti- hypertensives at this time, consider resuming as appropriate. I did discuss this patient with Dr. Haas, who was notified of his arrival when the patient arrived to the ER, and he will consult on this patient. 2. History of coronary artery disease. Appeared stable. The patient does not have any complaints of chest pain, trouble breathing or other concerns. We will continue his aspirin and statins, but in the presence of an acute neurological deficit, we will hold his metoprolol until it is appropriate to resume. 3. History of hypertension. Currently normotensive, anti-hypertensives held in the presence of acute neurological deficit, resume when appropriate. 4. Hyperlipidemia. Continue statin. We will recheck a lipid panel. 5. Hypothyroidism. Continue levothyroxine. The patient's TSH is 0.75. 6. Depression and anxiety. Continue current regimen of trazodone and Abilify. 7. History of obstructive sleep apnea. The patient may use home CPAP or facility equipment. 8. FEN. The patient does have a mild hypokalemia, for which he will receive a one time replacement for this. He does not need IV fluid supplementation, but we have ordered a heart-healthy diet. 9. Code status. He wishes to be a full code. 10. DVT prophylaxis. He has ordered subcu heparin and SCDs. 11. Disposition. Pending stroke workup, but likely discharge to home. TIME SPENT: Time spent on this admission was approximately 60 minutes with more than half that the time spent [id number] with the patient and family obtaining history and physical, performing the physical examination and reviewing the plan of care. Plan of care was also reviewed with my attending, Dr. Cordova, who is in agreement. KHLOE CREWS NP [id number]/[facility] #: [id number] CARRIE
--- NOTE | 2017-12-08 20:16 | CONS ---
CC: Dr. Chriss Romero NEUROLOGY CONSULT REPORT: DATE OF CONSULT: 12/08/17 REQUESTING CLINICIAN: Kecia Snowden NP PRIMARY CARE PHYSICIAN: Dr. Chriss Romero. REASON FOR CONSULT: Visual disturbance, rule out TIA. HISTORY OF PRESENT ILLNESS: The patient is an 82-year-old right-handed gentleman with a history of previous stroke, who came to the hospital because of a visual disturbance today. The patient woke up about 7:30 this morning and about an hour later when he was looking at the newspaper, he felt that the words were jumbled. I verified with him and this was not an issue of comprehension of the words, but rather not being able to follow the line straightly and the words were difficult for him to read. He is not sure if this symptom was monocular or binocular, but he said it was relatively similar to the symptoms that he had before his previous stroke. Because of his previous history, his suggested that he come to the hospital for evaluation. About 45 minutes after arrival to the hospital he thought that the symptoms resolved. He did not report any other associated symptoms such as no dizziness, no numbness in arms, legs, or face; no dysarthria or dysphagia. Although the patient's visual symptoms have resolved, he states he has a chronic problem with his left eye sometimes being watery and blurry since his cataract surgery. The patient had a history of stroke in June 2011 presenting with left-sided vision loss, left-sided weakness and numbness. Again in 2014, the patient presented with fluctuating symptoms of left-sided weakness and eventually he was transferred to [facility] in [place] for further evaluation. Although it is not clear to me whether he had a confirmed stroke that time, but seem he had a right carotid endarterectomy in [place]. He had another visit to the ED in January 2017 with left eye blurriness and left second finger numbness and workup at that time did not show any new or acute stroke. Patient has been on dual antiplatelet therapy for years. He believes he still has some degree of left sided neglect and for that reason he does not drive long distances. PAST MEDICAL HISTORY: 1. As mentioned above, stroke. 2. Coronary artery disease with IA in 2013. 3. Hyperlipidemia. 4. Hypertension. 5. Sleep apnea, with CPAP use. 6. Depression and anxiety. 7. Hypothyroidism. PAST SURGICAL HISTORY: 1. Carotid endarterectomy on the right side. 2. Left knee replacement. 3. Rotator cuff surgery. 4. Bilateral cataract surgery. 5. Thyroidectomy in 1980. MEDICATIONS: Home medications include: 1. Aspirin 325 mg p.o. daily. 2. Abilify 5 mg p.o. at bedtime. 3. Atenolol 50 mg p.o. daily. 4. Lipitor 80 mg p.o. daily. 5. Plavix 75 mg p.o. daily. 6. Zetia 10 mg p.o. daily. 7. Proscar 5 mg p.o. daily. 8. Levothyroxine 125 mcg p.o. daily. 9. Amlodipine 10 mg p.o. daily. 10. Trazodone 50 mg p.o. at bedtime. 11. Ativan p.r.n. at bedtime. ALLERGIES: To CEPHALEXIN and MORPHINE. FAMILY HISTORY: Father and brother both had history of coronary artery disease. Sister had history of leukemia. (Maternal?) grandmother had history of seizures. SOCIAL HISTORY: The patient was a smoker from age 16 to 39. He does not drink alcohol now (quit after his stroke). He does not use drugs. REVIEW OF SYSTEMS: Complete review of systems was performed and other than what was mentioned above is negative. PHYSICAL EXAM: Blood pressure 136/60, temperature 97.5, respiratory rate 20, pulse rate 81, O2 sat 97% on room air. The patient is awake, alert, and oriented x3. Speech is fluent and naming in intact. There is no dysarthria. Pupils are symmetric and reactive to light. Visual hayes are intact by confrontation, but seems there is some degree of left-sided visual neglect. Face is symmetric. V1 to V3 is intact to light touch and pinprick. Tongue is slightly deviated to the left side. Palate elevates upward. There is a subtle of facial droop on the left side, which seems to be old per the notes. There is a mild pronator drift on the left arm. Otherwise, the strength is 5/5 throughout. Sensation is intact to light touch and pinprick bilaterally. Juaqtl-aa-evju is intact bilaterally. Deep tendon reflexes are 1+ in the upper and lower extremities and are symmetric. There is occasional left sided neglect on simultaneous bilateral sensory touch. Babinski sign is absent bilaterally. Heart has regular rate and rhythm, lungs clear to auscultation. DIAGNOSTIC STUDIES/LAB DATA: WBC 5.3, hemoglobin 13.6, hematocrit 40, platelets 162. Sodium 140, potassium 3.4, BUN 12, creatinine 0.85. Urine is negative. Imaging: CTA of the head shows no evidence of hemodynamically significant carotid stenosis or intracranial thrombus. There is increased tissue density at the base of the tongue at the left side and the left tonsillar fossa probably mucosal redundancy. His last MRI on 01/25/2017 showed multifocal remote infracts. ASSESSMENT AND PLAN: This is an 82-year-old male with history of stroke in the past and right carotid endarterectomy, who presents with a visual disturbance that he describes are similar to his previous stroke. At this point, neurological exam is negative of new findings; he has a pronator drift on the left, subtle facial droop on the left and some degree of left sided neglect which are residual of his previous stroke. His visual symptoms form this morning have resolved, therefore, he was not a candidate for any thrombolytic therapy. In the absence of any other associated neurological symptom, it is not very likely that the etiology was a TIA. However, the patient identified the episode similar to his symptoms associated with his previous stroke. It may have been that the described visual symptom was secondary to an acute incomplete visual filed deficit that resolved. It is not clear if the symptom was mono or binocular. Therefore, it would be essential to continue the workup by obtaining an MRI of the brain to ensure a new small acute stroke is not present, because in the absence of significant vascular stenosis in his CTA this may suggest an embolic stroke. The patient will continue on dual therapy with antiplatelets and continue with statins. Also, to complete the TIA workup he needs an echocardiogram. [id number]/[facility] #: [id number] [facility] SURGERYStarla
[2017-12-08] MEDS: Atorvastatin* 80 MG TAB PO SCH (21:00)
[2017-12-08] MEDS: Tamsulosin CAP* 0.4 MG PO SCH (21:00)
[2017-12-08] MEDS: traZODone TAB* 50 MG TAB PO SCH (21:00)
[2017-12-08] MEDS: ARIPiprazole TAB* 5 MG PO SCH (21:00)
[2017-12-09] MEDS: Heparin VIAL(*) 5000 UNITS/ML VIAL (FIVE THOUSAND) SUBCUT SCH ×3 (05:57→22:27)
[2017-12-09] MEDS: Levothyroxine TAB* 125 MCG TAB PO SCH ×2 (05:58→07:48)
[2017-12-09 05:59] LABS: EGFR Non-African American 88.9 (>60)
[2017-12-09] MEDS: Clopidogrel TAB* 75 MG PO SCH (07:50)
[2017-12-09] MEDS: Finasteride TAB* 5 MG PO SCH (07:50)
[2017-12-09] MEDS: Ezetimibe TAB* 10 MG PO SCH (07:50)
[2017-12-09] MEDS: Aspirin TAB* 325 MG PO SCH (07:50)
--- NOTE | 2017-12-09 12:11 | ECHO ---
Patient: HUMA BLUE [facility] Rec#: [id number] : 1935 Date: 12/09/2017 Age: 82y Height: 175.26 cm / 69.0 in Weight: 83.01 kg / 183.0 lbs Sex: M BSA: 1.99 Room#: 440 Admit Date#: 12/08/2017 Type: Inpatient Referring: Kecia Snowden Reading: Rula Calero MD Digital Asset Coordinator: Donna Barclay RDCS CC: Chriss Romero MD Transthoracic Echocardiogram Indication: TIA vs. CVA BP: 126/73 HR: 68 Rhythm: NSR Findings History: Prior CVA, CAD with PCI 2003.HLD,PRAKASH with CPAP,hypothyroid,former smoker,soft systolic murmur. Technical Comments: The study quality is good. Completed at 1117. Left Ventricle: The left ventricular chamber size is normal. Mild concentric left ventricular hypertrophy is observed. Global left ventricular wall motion and contractility are within normal limits. The estimated ejection fraction is 50-55%. Abnormal left ventricular diastolic filling is observed, consistent with impaired relaxation. Left Atrium: The left atrium is mildly dilated. Right Ventricle: The right ventricular cavity size is normal. The right ventricular global systolic function is normal. Right Atrium: The right atrial cavity size is normal. There is no patent foramen ovale visualized. A patent foramen ovale is not demonstrated with color Doppler and agitated contrast. Aortic Valve: The aortic valve is trileaflet. The aortic valve leaflets are mildly thickened. Systolic excursion of the aortic valve cusps is reduced. There is mild aortic regurgitation. There is mild aortic stenosis. Highest aortic valve velocity was acquired with Pedoff in apical position. Mitral Valve: The mitral valve leaflets are mildly thickened. There is mild mitral regurgitation. There is no evidence of mitral stenosis. Tricuspid Valve: The tricuspid valve leaflets are normal. There is mild tricuspid regurgitation. The right ventricular systolic pressure is estimated at 51 mmHg. There is evidence of moderate pulmonary hypertension. There is no tricuspid stenosis. Pulmonic Valve: The pulmonic valve appears normal. There is trace to mild pulmonic regurgitation. There is no pulmonic stenosis. Pericardium: A pericardial fat pad is visualized. Aorta: There is no dilatation of the ascending aorta. There is no dilatation of the aortic arch. There is mild dilatation of the aortic root. Pulmonary Artery: The main pulmonary artery appears normal. Venous: The venous system is not well visualized. Contrast: Normal saline was used as contrast for the bubble study. Intravenous contrast was used to help determine presence of intracardiac shunting. Conclusions Mild concentric left ventricular hypertrophy is observed. Global left ventricular wall motion and contractility are within normal limits. No evidence of a patent foramen ovale with color Doppler and agitated contrast. There is mild aortic regurgitation. There is mild aortic stenosis: mean gradient 9 mmHg, DI 0.47. There is mild mitral regurgitation. There is mild tricuspid regurgitation. There is evidence of moderate pulmonary hypertension, estimated at 51 mmHg. Compared with prior echo of 01/25/17, ventricular and valvular function are stable, PA pressure has increased from 35 mmHg. Measurements Name Value Normal Range RVIDd (AP) 2D 3.1 cm (0.9 - 2.6) RVDdMajor (2D) 3.5 cm (2.2 - 4.4) RAd ISD 4CH 4.3 cm (3.4 - 4.9) RA (A4C)W 4.3 cm (2.9 - 4.6) IVSd (2D) 1.3 cm (0.6 - 1) LVPWd (2D) 1.2 cm (0.6 - 1) LVIDd (2D) 3.8 cm (3.6 - 5.4) LVIDs (2D) 2.7 cm - LV FS (2D) 24 % (25 - 45) Aortic Annulus 2.3 cm (1.4 - 2.6) Ao root diameter (2D) 3.7 cm (2.1 - 3.5) Ascending Ao 3.3 cm (2.1 - 3.4) Aortic arch 2.5 cm (1.8 - 3.4) Descending Ao 0.63 cm - LA dimension (AP) 2D 4.7 cm (2.3 - 3.8) LAd ISD 4CH 5.2 cm (2.9 - 5.3) LA ISD 4CH W 4.5 cm (2.5 - 4.5) Name Value Normal Range LA ESV SP 4CH (A/L) 49 ml - LA ESV SP 2CH (A/L) 53 ml - LA ESV BP (A/L) 57 ml - LA ESV BP (A/L) index 28.73 ml/m2 - LA ESV SP 4CH (MOD) 44 ml - LA ESV SP 2CH (MOD) 48 ml - Name Value Normal Range MV E-wave Vmax 0.7 m/sec - MV deceleration time 297 msec - MV A-wave Vmax 1.1 m/sec - MV E:A ratio 0.6 ratio - LV septal e' Vmax 0.06 m/sec - LV lateral e' Vmax 0.05 m/sec - LV E:e' septal ratio 11.67 ratio - LV E:e' lateral ratio 14 ratio - Name Value Normal Range AV Vmax 2.5 m/sec - AV VTI 48.7 cm - AV peak gradient 24.05 mmHg - AV mean gradient 8.97 mmHg - LVOT diameter 2.2 cm - LVOT Vmax 1.1 m/sec - LVOT VTI 22.9 cm - LVOT peak gradient 4.64 mmHg - LVOT mean gradient 2.18 mmHg - LINUS (continuity Vmax) 1.7 cm2 - LINUS (continuity VTI) 1.8 cm2 - AR PHT 498 msec - AR peak gradient 27.71 mmHg - Name Value Normal Range MR Vmax 5.7 m/sec - MR VTI 184 cm - Name Value Normal Range TR Vmax 3.3 m/sec - TR peak gradient 43 mmHg - RAP 8 mmHg - RVSP 51 mmHg - Name Value Normal Range PV Vmax 1 m/sec - PV peak gradient 3.93 mmHg -
--- NOTE | 2017-12-09 13:11 | PN ---
Subjective Date of Service: 12/09/17 Interval History: Pt feels " back to baseline" with left facial droop and left hand weakness as residual from previous CVA Objective Active Medications: Acetaminophen (Tylenol Tab*) 650 mg PO Q4H PRN PRN Reason: FEVER/PAIN Aripiprazole (Abilify Tab*) 5 mg PO BEDTIME [facility] Last Admin: 12/08/17 21:00 Dose: 5 mg Aspirin (Aspirin Tab*) 325 mg PO QAM [facility] Last Admin: 12/09/17 07:50 Dose: 325 mg Atorvastatin Calcium (Lipitor*) 80 mg PO BEDTIME [facility] Last Admin: 12/08/17 21:00 Dose: 80 mg Clopidogrel Bisulfate (Plavix Tab*) 75 mg PO QAM [facility] Last Admin: 12/09/17 07:50 Dose: 75 mg Ezetimibe (Zetia Tab*) 10 mg PO DAILY [facility] Last Admin: 12/09/17 07:50 Dose: 10 mg Finasteride (Proscar Tab*) 5 mg PO DAILY [facility] Last Admin: 12/09/17 07:50 Dose: 5 mg Heparin Sodium (Porcine) (Heparin Vial(*)) 5,000 units SUBCUT Q8HR [facility] Last Admin: 12/09/17 05:57 Dose: 5,000 units Levothyroxine Sodium (Synthroid Tab*) 125 mcg PO QAM [facility] Last Admin: 12/09/17 07:48 Dose: Not Given Ondansetron HCl (Zofran Inj*) 4 mg IV Q4H PRN PRN Reason: NAUSEA/VOMITING Tamsulosin HCl (Flomax Cap*) 0.4 mg PO BEDTIME [facility] Last Admin: 12/08/17 21:00 Dose: 0.4 mg Trazodone HCl (Desyrel Tab*) 50 mg PO BEDTIME [facility] Last Admin: 12/08/17 21:00 Dose: 50 mg Vital Signs - 8 hr 12/09/17 12/09/17 12/09/17 07:25 07:34 07:50 Temperature 97.6 F 97.7 F Pulse Rate 74 76 Respiratory 16 18 Rate Blood Pressure 106/54 132/47 (mmHg) O2 Sat by Pulse 94 95 Oximetry 12/09/17 11:10 Temperature 98.3 F Pulse Rate 63 Respiratory 15 Rate Blood Pressure 107/42 (mmHg) O2 Sat by Pulse 94 Oximetry Oxygen Devices in Use Now: None Appearance: 82 yo M in NAD, AAOx3 Eyes: No Scleral Icterus, PERRLA Ears/Nose/Mouth/Throat: NL Teeth, Lips, Gums, Mucous Membranes Moist Neck: NL Appearance and Movements; NL JVP, Trachea Midline Respiratory: Symmetrical Chest Expansion and Respiratory Effort Cardiovascular: NL Sounds; No Murmurs; No JVD, RRR Abdominal: NL Sounds; No Tenderness; No Distention, No Hepatosplenomegaly Lymphatic: No Cervical Adenopathy Extremities: No Edema, No Clubbing, Cyanosis Skin: No Rash or Ulcers, No Nodules or Sclerosis Neurological: Alert and Oriented x 3, - - [place], left facial droop, left handgrip at 4+/5 Result Diagrams: 12/08/17 10:58 12/09/17 05:23 Additional Lab and Data: Lab Results 12/08/17 12/08/17 12/08/17 Range/Units 10:58 10:58 10:58 WBC 5.3 (3.5-10.8) 10^3/ul RBC 4.54 (4.00-5.40) 10^6/ul Hgb 13.6 L (14.0-18.0) g/dl Hct 40 L (42-52) % MCV 88 (80-94) fL MCH 30 (27-31) pg MCHC 34 (31-36) g/dl RDW 14 (10.5-15) % Plt Count 162 (150-450) 10^3/ul MPV 7.8 (7.4-10.4) um3 Neut % (Auto) 66.3 (38-83) % Lymph % (Auto) 23.1 L (25-47) % Lares % (Auto) 8.9 H (0-7) % Eos % (Auto) 1.3 (0-6) % Baso % (Auto) 0.4 (0-2) % Absolute Neuts (auto) 3.5 (1.5-7.7) 10^3/ul Absolute Lymphs (auto) 1.2 (1.0-4.8) 10^3/ul Absolute Monos (auto) 0.5 (0-0.8) 10^3/ul Absolute Eos (auto) 0.1 (0-0.6) 10^3/ul Absolute Basos (auto) 0 (0-0.2) 10^3/ul Absolute Nucleated RBC 0 10^3/ul Nucleated RBC % 0 INR (Anticoag Therapy) 0.94 (0.77-1.02) Sodium 140 (135-145) mmol/L Potassium 3.4 L (3.5-5.0) mmol/L Chloride 100 L (101-111) mmol/L Carbon Dioxide 34 H (22-32) mmol/L Anion Gap 6 (2-11) mmol/L BUN 12 (6-24) mg/dL Creatinine 0.85 (0.67-1.17) mg/dL Est GFR ( Amer) 104.7 (>60) Est GFR (Non-Af Amer) 86.5 (>60) BUN/Creatinine Ratio 14.1 (8-20) Glucose 131 H (70-100) mg/dL Lactic Acid (0.5-2.0) mmol/L Calcium 8.8 (8.6-10.3) mg/dL Magnesium 2.1 (1.9-2.7) mg/dL Total Bilirubin 0.40 (0.2-1.0) mg/dL AST 16 (13-39) U/L ALT 18 (7-52) U/L Alkaline Phosphatase 65 (34-104) U/L Troponin I 0.00 (<0.04) ng/mL Total Protein 6.5 (6.4-8.9) g/dL Albumin 3.7 (3.2-5.2) g/dL Globulin 2.8 (2-4) g/dL Albumin/Globulin Ratio 1.3 (1-3) TSH 0.75 (0.34-5.60) mcIU/mL 12/08/17 Range/Units 10:58 WBC (3.5-10.8) 10^3/ul RBC (4.00-5.40) 10^6/ul Hgb (14.0-18.0) g/dl Hct (42-52) % MCV (80-94) fL MCH (27-31) pg MCHC (31-36) g/dl RDW (10.5-15) % Plt Count (150-450) 10^3/ul MPV (7.4-10.4) um3 Neut % (Auto) (38-83) % Lymph % (Auto) (25-47) % Lares % (Auto) (0-7) % Eos % (Auto) (0-6) % Baso % (Auto) (0-2) % Absolute Neuts (auto) (1.5-7.7) 10^3/ul Absolute Lymphs (auto) (1.0-4.8) 10^3/ul Absolute Monos (auto) (0-0.8) 10^3/ul Absolute Eos (auto) (0-0.6) 10^3/ul Absolute Basos (auto) (0-0.2) 10^3/ul Absolute Nucleated RBC 10^3/ul Nucleated RBC % INR (Anticoag Therapy) (0.77-1.02) Sodium (135-145) mmol/L Potassium (3.5-5.0) mmol/L Chloride (101-111) mmol/L Carbon Dioxide (22-32) mmol/L Anion Gap (2-11) mmol/L BUN (6-24) mg/dL Creatinine (0.67-1.17) mg/dL Est GFR ( Amer) (>60) Est GFR (Non-Af Amer) (>60) BUN/Creatinine Ratio (8-20) Glucose (70-100) mg/dL Lactic Acid 1.5 (0.5-2.0) mmol/L Calcium (8.6-10.3) mg/dL Magnesium (1.9-2.7) mg/dL Total Bilirubin (0.2-1.0) mg/dL AST (13-39) U/L ALT (7-52) U/L Alkaline Phosphatase (34-104) U/L Troponin I (<0.04) ng/mL Total Protein (6.4-8.9) g/dL Albumin (3.2-5.2) g/dL Globulin (2-4) g/dL Albumin/Globulin Ratio (1-3) TSH (0.34-5.60) mcIU/mL Assess/Plan/Problems-Billing Assessment: 82 yo M with h/o hypothyroidism, previous carotid endartectomy, 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 -pt has his baseline left facial droop - Neurology consult appreciated. - CTA neck showed 50% carotid stenosis on the Right. - Awaiting MRI in AM -Echo shows increase in pulm HTN, no PFO -cont plavix/ASA - Continue Aspirin, Plavix and Atorvastatin. - PT/OT/ST consults. - Continue neurochecks. (2) Depression with anxiety Comment: Cont home meds (3) History of CVA (cerebrovascular accident) Comment: With mild residual left-sided neglect. (4) Hyperlipemia Comment: Continue Lipitor ansd Zetia (5) Hypothyroidism Comment: Continue levothyroxine. TSH 0.7 (6) DM2 (diabetes mellitus, type 2) Comment: HbA1C 6.6 makes the dx of DM2-nutrition consult requested (7) DVT prophylaxis Comment: HSQ (8) Tongue abnormality Comment: noted on CTA neck at the base of tongue recommended ENT eval as outpatient Status and Disposition: inpatient
--- NOTE | 2017-12-09 14:27 | PN ---
Progress Note - Progress Note Date of Service: 12/09/17 SOAP: Neurology progress note: Date of service: 12/09/17 Subjective: The patient had no new symptoms and is feeling 'great". Objective: Vital Signs Temp Pulse Resp BP Pulse Ox 98.3 F 63 15 107/42 94 12/09/17 11:10 12/09/17 11:10 12/09/17 11:10 12/09/17 11:10 12/09/17 11:10 Current Medications Acetaminophen (Tylenol Tab*) 650 mg PO Q4H PRN PRN Reason: FEVER/PAIN Aripiprazole (Abilify Tab*) 5 mg PO BEDTIME [facility] Last Admin: 12/08/17 21:00 Dose: 5 mg Aspirin (Aspirin Tab*) 325 mg PO QAM [facility] Last Admin: 12/09/17 07:50 Dose: 325 mg Atorvastatin Calcium (Lipitor*) 80 mg PO BEDTIME [facility] Last Admin: 12/08/17 21:00 Dose: 80 mg Clopidogrel Bisulfate (Plavix Tab*) 75 mg PO QAM [facility] Last Admin: 12/09/17 07:50 Dose: 75 mg Ezetimibe (Zetia Tab*) 10 mg PO DAILY [facility] Last Admin: 12/09/17 07:50 Dose: 10 mg Finasteride (Proscar Tab*) 5 mg PO DAILY [facility] Last Admin: 12/09/17 07:50 Dose: 5 mg Heparin Sodium (Porcine) (Heparin Vial(*)) 5,000 units SUBCUT Q8HR [facility] Last Admin: 12/09/17 05:57 Dose: 5,000 units Levothyroxine Sodium (Synthroid Tab*) 125 mcg PO QAM [facility] Last Admin: 12/09/17 07:48 Dose: Not Given Ondansetron HCl (Zofran Inj*) 4 mg IV Q4H PRN PRN Reason: NAUSEA/VOMITING Tamsulosin HCl (Flomax Cap*) 0.4 mg PO BEDTIME [facility] Last Admin: 12/08/17 21:00 Dose: 0.4 mg Trazodone HCl (Desyrel Tab*) 50 mg PO BEDTIME [facility] Last Admin: 12/08/17 21:00 Dose: 50 mg Laboratory Last Values WBC 5.3 10^3/ul (3.5-10.8) 12/08/17 10:58 RBC 4.54 10^6/ul (4.00-5.40) 12/08/17 10:58 Hgb 13.6 g/dl (14.0-18.0) L 12/08/17 10:58 Hct 40 % (42-52) L 12/08/17 10:58 MCV 88 fL (80-94) 12/08/17 10:58 MCH 30 pg (27-31) 12/08/17 10:58 MCHC 34 g/dl (31-36) 12/08/17 10:58 RDW 14 % (10.5-15) 12/08/17 10:58 Plt Count 162 10^3/ul (150-450) 12/08/17 10:58 MPV 7.8 um3 (7.4-10.4) 12/08/17 10:58 Neut % (Auto) 66.3 % (38-83) 12/08/17 10:58 Lymph % (Auto) 23.1 % (25-47) L 12/08/17 10:58 [place] % (Auto) 8.9 % (0-7) H 12/08/17 10:58 Eos % (Auto) 1.3 % (0-6) 12/08/17 10:58 Baso % (Auto) 0.4 % (0-2) 12/08/17 10:58 Absolute Neuts (auto) 3.5 10^3/ul (1.5-7.7) 12/08/17 10:58 Absolute Lymphs (auto) 1.2 10^3/ul (1.0-4.8) 12/08/17 10:58 Absolute Monos (auto) 0.5 10^3/ul (0-0.8) 12/08/17 10:58 Absolute Eos (auto) 0.1 10^3/ul (0-0.6) 12/08/17 10:58 Absolute Basos (auto) 0 10^3/ul (0-0.2) 12/08/17 10:58 Absolute Nucleated RBC 0 10^3/ul 12/08/17 10:58 Nucleated RBC % 0 12/08/17 10:58 INR (Anticoag Therapy) 0.94 (0.77-1.02) 12/08/17 10:58 Sodium 140 mmol/L (135-145) 12/09/17 05:23 Potassium 3.6 mmol/L (3.5-5.0) 12/09/17 05:23 Chloride 103 mmol/L (101-111) 12/09/17 05:23 Carbon Dioxide 31 mmol/L (22-32) 12/09/17 05:23 Anion Gap 6 mmol/L (2-11) 12/09/17 05:23 BUN 12 mg/dL (6-24) 12/09/17 05:23 Creatinine 0.83 mg/dL (0.67-1.17) 12/09/17 05:23 Est GFR ( Amer) 107.6 (>60) 12/09/17 05:23 Est GFR (Non-Af Amer) 88.9 (>60) 12/09/17 05:23 BUN/Creatinine Ratio 14.5 (8-20) 12/09/17 05:23 Glucose 123 mg/dL (70-100) H 12/09/17 05:23 Hemoglobin A1c 6.6 % (4.0-5.6) H 12/08/17 10:58 Lactic Acid 1.5 mmol/L (0.5-2.0) 12/08/17 10:58 Calcium 8.7 mg/dL (8.6-10.3) 12/09/17 05:23 Magnesium 2.1 mg/dL (1.9-2.7) 12/08/17 10:58 Total Bilirubin 0.40 mg/dL (0.2-1.0) 12/08/17 10:58 AST 16 U/L (13-39) 12/08/17 10:58 ALT 18 U/L (7-52) 12/08/17 10:58 Alkaline Phosphatase 65 U/L (34-104) 12/08/17 10:58 Troponin I 0.00 ng/mL (<0.04) 12/08/17 10:58 Total Protein 6.5 g/dL (6.4-8.9) 12/08/17 10:58 Albumin 3.7 g/dL (3.2-5.2) 12/08/17 10:58 Globulin 2.8 g/dL (2-4) 12/08/17 10:58 Albumin/Globulin Ratio 1.3 (1-3) 12/08/17 10:58 Triglycerides 117 mg/dL 12/09/17 05:23 Cholesterol 136 mg/dL 12/09/17 05:23 LDL Cholesterol 74 mg/dL 12/09/17 05:23 HDL Cholesterol 38.9 mg/dL 12/09/17 05:23 TSH 0.75 mcIU/mL (0.34-5.60) 12/08/17 10:58 PHYSICAL EXAM: The patient is awake, alert, and oriented x3. Speech is fluent and naming in intact. There is no dysarthria. Pupils are symmetric and reactive to light. Visual hayes are intact by confrontation, but seems there is some degree of left-sided visual neglect. Face is symmetric. V1 to V3 is intact to light touch and pinprick. Tongue is slightly deviated to the left side. Palate elevates upward. There is a subtle of facial droop on the left side, which seems to be old per the notes. There is a mild pronator drift on the left arm. Otherwise, the strength is 5/5 throughout. Sensation is intact to light touch and pinprick bilaterally. [id number] is intact bilaterally. Deep tendon reflexes are 1+ in the upper and lower extremities and are symmetric. There is occasional left sided neglect on simultaneous bilateral sensory touch. Babinski sign is absent bilaterally. ASSESSMENT AND PLAN: This is an 82-year-old male with history of stroke in the past and right carotid endarterectomy, who presents with a visual disturbance that he describes are similar to his previous stroke. At this point, neurological exam is negative of new findings; he has a pronator drift on the left, subtle facial droop on the left and some degree of left sided neglect which are residual of his previous stroke. His visual symptoms have resolved In the absence of any other associated neurological symptom, it is not very likely that the etiology was a TIA or a small stroke. However, the patient identified the episode similar to his symptoms associated with his previous stroke. It may have been that the described visual symptom was secondary to an acute incomplete visual filed deficit that resolved. It is not clear if the symptom was mono or binocular. Therefore, it would be essential to continue the workup by obtaining an MRI of the brain to ensure a new small acute stroke is not present, because in the absence of significant vascular stenosis in his CTA this may suggest an embolic stroke. The patient will continue on dual therapy with antiplatelets and continue with statins. Also echocardiogram is completed and unremarkable. Awaiting MRI brain.
[2017-12-09 14:46] LABS: Urine Appearance Cloudy; Urine Blood 1+ (Negative); Urine Color Yellow; Urine Ketones Negative (Negative); Urine Protein Negative (Negative); Urine Specific Gravity 1.016 (1.010-1.030); Urine Urobilinogen Negative (Negative)
[2017-12-09] MEDS: traZODone TAB* 50 MG TAB PO SCH (19:51)
[2017-12-09] MEDS: Atorvastatin* 80 MG TAB PO SCH (19:51)
[2017-12-09] MEDS: Tamsulosin CAP* 0.4 MG PO SCH (19:51)
[2017-12-09] MEDS: ARIPiprazole TAB* 5 MG PO SCH (19:51)
[2017-12-10] MEDS: Heparin VIAL(*) 5000 UNITS/ML VIAL (FIVE THOUSAND) SUBCUT SCH (06:17)
[2017-12-10] MEDS: Levothyroxine TAB* 125 MCG TAB PO SCH (06:48)
[2017-12-10] MEDS: Clopidogrel TAB* 75 MG PO SCH (08:53)
[2017-12-10] MEDS: Ezetimibe TAB* 10 MG PO SCH (08:53)
[2017-12-10] MEDS: Aspirin TAB* 325 MG PO SCH (08:53)
[2017-12-10] MEDS: Finasteride TAB* 5 MG PO SCH (08:53)
--- NOTE | 2017-12-10 11:28 | RAD ---
HISTORY: TIA vs CVA COMPARISONS: Head CT dated December 08, 2017, MRI dated January 25, 2017 TECHNIQUE: The following sequences were obtained of the head: Sagittal T1-weighted images, axial T2-weighted images, axial FLAIR images, axial susceptibility weighted images, axial T1-weighted images. Additionally, axial diffusion-weighted images were obtained with calculated apparent diffusion coefficients. FINDINGS: HEMORRHAGE/INFARCT: There is no hemorrhage or acute infarct. MASSES/SHIFT: There is no mass or shift. EXTRA-AXIAL SPACES/MENINGES: There are no extra-axial fluid collections. SULCI AND VENTRICLES: There is mild diffuse and proportional enlargement of the sulci and ventricles. CEREBRUM: There is elevated T2/FLAIR signal in the periventricular and subcortical white matter. There is stable right parietal encephalomalacia consistent with previous right MCA infarct. Again noted are multiple punctate foci susceptibility artifact with chronic microhemorrhage. BRAINSTEM: There are no focal parenchymal abnormalities. CEREBELLUM: There are no focal parenchymal abnormalities. The cerebellar tonsils are normal in size and position. SELLA: The sella is normal. PINEAL: The pineal region is clear. CP ANGLE/TEMPORAL BONES: The labyrinthine structures are grossly normal. VESSELS: Normal flow-voids are noted within the visualized vertebral vasculature. DIFFUSION ABNORMALITIES: There are no diffusion abnormalities. PARANASAL SINUSES/MASTOIDS: The paranasal sinuses are clear. ORBITS: The orbits are unremarkable. BONES AND SOFT TISSUE: No bone or soft tissue abnormalities are noted. OTHER: None IMPRESSION: 1. NO RESTRICTED DIFFUSION TO SUGGEST ACUTE INFARCT. 2. CHRONIC SMALL VESSEL ISCHEMIC CHANGE WITH EVIDENCE OF REMOTE RIGHT MCA INFARCT. 3. STABLE CHRONIC MICROHEMORRHAGES. 4. MILD DIFFUSE INVOLUTIONAL CHANGE.
--- NOTE | 2017-12-10 13:08 | PN ---
PROGRESS NOTE: DATE OF VISIT: 12/10/17 PATIENT OF: Dr. Sousa. HISTORY: This is an 82-year-old man I am seeing in neurological followup for a possible left field cut that lasted 30 minutes. His history is a little hard because he also says the words were jumbled, but he felt this off to the left side. He has had no further symptoms and is feeling good and his Dr. Haas outlined in his note he had similar episodes associated with a prior stroke. His CTA was negative. CURRENT MEDICATIONS: Include: 1. Desyrel 50 mg at bedtime. 2. Flomax 0.4 at bedtime. 3. Synthroid 125 mcg a day. 4. Proscar 5 mg daily. 5. Zetia 10 mg daily. 6. Plavix 75 mg daily. 7. Aspirin 325 mg at bedtime. 8. Lipitor 80 mg a day. 9. Abilify 5 mg at bedtime. PHYSICAL EXAMINATION: On exam, temperature 97.6, pulse 73, respirations 18, blood pressure 133/70. He is alert and oriented with normal speech and comprehension. Cranial nerves II through XII were intact. There was no field cut by confrontation. He has slight left facial droop. Strength is 5/5. Reflexes 1 and equal. Toes were downgoing. ASSESSMENT AND PLAN: Mr. Black had a transient visual loss that is now completely resolved and he is asymptomatic. He will continue on his dual antiplatelet medicine and statin. Depending on the results of the MRI scan, we may get a JORGE ALBERTO echo if there is suspicion for embolic stroke. Otherwise, he will be able to go home later today. Thank you for sharing his case. [id number]/[facility] #: [id number] CARRIE
[2017-12-10 13:09] VITALS: BP 117/64
[2017-12-11] MEDS ORDERED: Levothyroxine TAB* 125 MCG TAB PO SCH (06:00)
--- NOTE | 2017-12-11 07:49 | DS ---
CC: Dr. Romero; Dr. Haas; Dr. Milner; Dr. Coleman; [facility] DISCHARGE SUMMARY: DATE OF ADMISSION: 12/08/17 DATE OF DISCHARGE: 12/10/17 PRIMARY CARE PROVIDER: Dr. Romero. DISCHARGE DIAGNOSES: 1. Transient episode of visual disturbance in the left eye, likely due to transient ischemic attack. 2. Hemoglobin A1c of 6.6 in a patient who was diagnosed with diabetes type 2. 3. Abnormality on the left base of the tongue detected on CT angiogram of the neck, full followup as outpatient. SECONDARY DIAGNOSES: 1. History of old cerebrovascular accident with residual left-sided facial droop and left arm weakne ss. 2. History of hypertension. 3. Hyperlipidemia. 4. History of obstructive sleep apnea, on CPAP. 5. History of coronary artery disease, status post cardiac catheterization and stent placement in . 6. History of carotid endarterectomy. MEDICATIONS AT DISCHARGE: Unchanged from admission and include: 1. Amlodipine 10 mg daily. 2. Abilify 5 mg at bedtime. 3. Aspirin 325 mg daily. 4. Atenolol 50 mg daily. 5. Lipitor 80 mg at bedtime. 6. Plavix 75 mg daily. 7. Zetia 10 mg daily. 8. Proscar 5 mg daily. 9. Levothyroxine 125 mcg daily. 10. Ativan 0.5 mg at bedtime p.r.n. 11. Flomax 0.4 mg at bedtime. 12. Desyrel 50 mg at bedtime. LABORATORY DATA AND STUDIES PERFORMED DURING THE HOSPITAL STAY: Included the patient's cholesterol s howed total cholesterol of 136, triglycerides of 117, LDL of 74, HDL of 38, TSH of 0.75. Hemoglobin A1c 6.6. On 12/09/17, sodium of 140, potassium 3.6, chloride 103, carbon dioxide 31, BUN 12, creatinine 0.83, glucose level of 123. Brain MRI reported on 12/10/17, impression: "No restricted diffusion to suggest acute infarct. Conference Organizer bill small vessel ischemic change with evidence of remote right MCA infarct. Severe chronic microhemo rrhages. Mild diffuse involutional change." Transthoracic echocardiogram obtained on 12/09/17 showed mild concentric LVH. There was no evidence o f PFO. There was mild aortic stenosis, mild tricuspid regurgitation and mitral regurgitation. There was evidence of moderate pulmonary hypertension, estimated at 51 mmHg. There was also mild aortic r egurgitation. CT angiogram of the head and neck obtained on 12/08/17, impression: "No evidence of hemodynamically significant carotid stenosis. No evidence of large vessel intracranial thrombus. There was increase d soft tissue density present at the base of the tongue on the left side as well as in the left tonsi llar fossa, possibly representing mucosal redundancy, although a mass cannot be excluded. Recommend direct inspection." Brain CT, impression: "No evidence of gross acute infarct. There was no mass effect or hemorrhage. Old right parietal lobe infarct. Atrophy and findings consistent with severe chronic small vessel i schemic changes." CONSULTATIONS DURING THE HOSPITAL STAY: Included Dr. Haas and Dr. Milner from Neurology. HOSPITALIZATION COURSE: Yakov Black is an 82-year-old male with history of left-sided facial dr oop and left hand weakness, which is baseline after his right MCA stroke, who presented complaining o f transient visual disturbance for approximately 40 minutes that occurred on the day of admission. H e was placed on telemetry monitored bed with no arrhythmias noted. His workup had included transthor acic echocardiogram, which showed no PFO. His CT angiogram of the head and neck showed no significan t carotid stenosis. The patient did have history of carotid endarterectomy and his left carotid with 50% stenosis noted. His brain MRI obtained on the day of discharge showed no evidence of new acute stroke. At this point, the working diagnosis is TIA. Dr. Haas and Dr. Milner saw the patient in consultation. The patient had been already on aspirin and Plavix, likely due to history of cardiac disease as well as carotid endarterectomy in the past. At this point, the recommendation is to shayna nue dual antiplatelet therapy for at least a month and then from neurologic standpoint, the patient c ould be continued on aspirin or Plavix only afterwards. It also depends if the patient's cardiologis t recommends stopping dual antiplatelet therapy after. The patient continues on with his baseline neurological deficits by the time of discharge with his le ft-sided facial droop and left hand data management manager being slightly weaker. Otherwise, his physical exam is manpreet sly unchanged at the time of discharge. He will follow up with Dr. Romero in approximately 4 to 7 days. Follow up with Dr. Coleman from Neurology, which is a neurologist that the patient chose for followup as it can be done in 4 to 6 weeks. The patient also was given a phone number to [facility] to follow up on incidentally noted abnormality at the left base of the patient's tongue. PHYSICAL EXAMINATION: At the time of discharge, blood pressure of 133/70, heart rate of 73 and regul ar, respiratory rate 16, oxygen saturation 96% on room air, temperature 97.6. General: The patient is a very pleasant 82-year-old male who is in no acute distress. Alert, awake, and oriented x3. VISHNU NT: Head: Atraumatic, normocephalic. Eyes: Pupils are equal, reactive to light and accommodation. Oropharynx is clear. Mucosa moist. Neck: Supple. No JVD. No bruits bilaterally. Cardiovascular : Regular rate and rhythm. No murmur. Respiratory: Clear to auscultation bilaterally. Abdomen: S oft, nontender. Bowel sounds are present in all 4 quadrants. Extremities: There is no edema. Puls es are +2 bilaterally. No clubbing or cyanosis. Neuro Evaluation: Left facial droop noted. The pat ient also has left hand data management manager that is weaker at 4+/5. There is no pronator drift. The patient ambula suha with a steady gait with a walker at discharge. Please note that this is a short summary of the patient's hospitalization. Please refer to further edical records for details. TIME SPENT: Approximately 45 minutes was spent on the patient's discharge. [id number]/[facility] #: [id number]
== END 2017-12-10 13:21 | disposition home or self-care (01) | DRG 69 ==
LOC: ED 09:53 → MEDTELE 12:51 → OBSVTOIN 12-09 13:03
PROVIDERS: ADMIT Internal Medicine; ATTEND Internal Medicine
DX: G45.8 Other transient cerebral ischemic attacks and related syndromes (principal); I69.354 Hemiplegia and hemiparesis following cerebral infarction affecting left non-dominant side; H53.9 Unspecified visual disturbance; E11.9 Type 2 diabetes mellitus without complications; E78.5 Hyperlipidemia, unspecified; G47.33 Obstructive sleep apnea (adult) (pediatric); I25.10 Atherosclerotic heart disease of native coronary artery without angina pectoris; E87.6 Hypokalemia; I11.9 Hypertensive heart disease without heart failure; F32.9 Major depressive disorder, single episode, unspecified; F41.9 Anxiety disorder, unspecified; E03.9 Hypothyroidism, unspecified; R93.8 Abnormal findings on diagnostic imaging of other specified body structures; Z96.652 Presence of left artificial knee joint; Z79.02 Long term (current) use of antithrombotics/antiplatelets; Z95.5 Presence of coronary angioplasty implant and graft; Z79.82 Long term (current) use of aspirin; Z79.899 Other long term (current) drug therapy; Z88.5 Allergy status to narcotic agent; Z88.8 Allergy status to other drugs, medicaments and biological substances; Z82.49 Family history of ischemic heart disease and other diseases of the circulatory system; Z80.6 Family history of leukemia; Z82.3 Family history of stroke; Z87.891 Personal history of nicotine dependence
CPT/HCPCS: 36415; 70450; 70496; 70498; 70551; 71045; 80048; 80053; 80061; 81003; 81015; 83036; 83605; 83735; 84443; 84484; 85025; 85610; 87086; 93005; 93306; 94660; 99283; A9270-GY; G0378; J1644; Q9967

== ENCOUNTER 2018-05-20 08:38 | Emergency (ER) | payer MEDICARE ==
[2018-05-20] MEDS ORDERED: NS 0.9% 1000 ML* 1,000 ML IV ONE (09:09)
--- NOTE | 2018-05-20 09:26 | ED ---
Dizziness - HPI Summary HPI Summary: Patient is a 82 y/o M presenting to ED with complaints of being "wobbly" and unsteady gait for the past two days. He states that Sx worsened this morning, notes that moving head quickly aggravates Sx. Hx of right sided CVA and endarterectomy three years ago, patient has left sided deficits as a result from stroke. Patient is on Plavix. On triage, pain is denied, nothing is noted to aggravate/alleviate Sx. Home medications and allergies are reviewed. - History Of Current Complaint Chief Complaint: EDWeakness Stated Complaint: WOBBLY Time Seen by Provider: 05/20/18 09:09 Hx Obtained From: Patient Onset/Duration: Still Present Timing: Days - two Severity Currently: None - pain denied Character: Dizzy - patient reports being "wobby" and unsteady gait Aggravating Factor(s): Change In Head Position Alleviating Factor(s): Nothing Associated Signs And Symptoms: Positive: Unsteady Gait, Other: - "wobbly" - Allergies/Home Medications Allergies/Adverse Reactions: Allergies Allergy/AdvReac Type Severity Reaction Status Date / Time cephalexin Allergy Unknown Verified 05/20/18 08:44 Reaction Details morphine AdvReac Hallucinati Verified 05/20/18 08:44 ons Home Medications: Home Medications Lisinopril 10 mg PO DAILY 05/20/18 [History Confirmed 05/20/18] Omeprazole 20 mg PO DAILY 05/20/18 [History Confirmed 05/20/18] PMH/Surg Hx/FS Hx/Imm Hx Endocrine/Hematology History: Reports: Hx Anticoagulant Therapy - plavix and ASA , Hx Thyroid Disease, Hx Anemia - SLIGHT Denies: Hx Diabetes Cardiovascular History: Reports: Hx Angina, Hx Coronary Artery Disease, Hx Hypercholesterolemia, Hx Hypertension, Hx Myocardial Infarction Denies: Hx Congestive Heart Failure, Hx Pacemaker/ICD, Other Cardiovascular Problems/Disorders Respiratory History: Reports: Hx Sleep Apnea - has CPAP Denies: Hx Asthma, Hx Chronic Obstructive Pulmonary Disease (COPD), Other Respiratory Problems/Disorders GI History: Reports: Hx Gastroesophageal Reflux Disease, Hx Ulcer - Gastric, Other GI Disorders - ? gerd History: Reports: Other Problems/Disorders - ENLARGE PROSTATE Denies: Hx Renal Disease Musculoskeletal History: Reports: Hx Arthritis - LEFT KNEE, Hx Osteoporosis - LEFT KNEE, Other Musculoskeletal History - knee surgery Sensory History: Reports: Hx Cataracts, Hx Contacts or Glasses, Hx Hearing Aid, Other Sensory Impairments - left visual cut after CVA Opthamlomology History: Reports: Hx Cataracts, Hx Contacts or Glasses, Other Sensory Impairments - left visual cut after CVA Neurological History: Reports: Hx CVA - stroke 2011 and 10/2014 - Lt deficits, Other Neuro Impairments/Disorders - CVA Denies: Hx Dementia, Hx Seizures Psychiatric History: Reports: Hx Anxiety - ONCE IN A WHILE Denies: Hx Panic Disorder, Hx Substance Abuse - Surgical History Surgery Procedure, Year, and Place: RIGHT ENDAREDECTOMY; CARDIAC STENTS PLACED; RIGHT SHOULDER ROTATOR CUFF REPAIR; PARTIAL THYROIDECTOMY; LEFT KNEE REPLACEMENT ; RIGHT BUNIONECTOMY; RIGHT KNEE ARTHROSCOPE; Hx Anesthesia Reactions: No Infectious Disease History: No Infectious Disease History: Reports: Hx Shingles - 30 years ago Denies: Hx Clostridium Difficile, Hx Hepatitis, Hx Human Immunodeficiency Virus (HIV), Hx of Known/Suspected MRSA, Hx Tuberculosis, Hx Known/Suspected VRE , Hx Known/Suspected VRSA, History Other Infectious Disease, Traveled Outside the [place] in Last 30 Days - Family History Known Family History: Positive: Cardiac Disease - Social History Alcohol Use: None Hx Substance Use: No Substance Use Type: Reports: None Hx Tobacco Use: Yes Smoking Status (MU): Former Smoker Type: Cigarettes Amount Used/How Often: 3 packs a day 39 years ago Have You Smoked in the Last Year: No Review of Systems Negative: Fever - on vitals, temp is 97.9 F Neurological: Other - POSITIVE - "WOBBLY", UNSTEADY GAIT All Other Systems Reviewed And Are Negative: Yes Physical Exam - Summary Physical Exam Summary: VITAL SIGNS: Reviewed. GENERAL: Patient is a well-developed and nourished male who is lying comfortable in the stretcher. Patient is not in any acute respiratory distress. HEAD AND FACE: No signs of trauma. No ecchymosis, hematomas or skull depressions. No sinus tenderness. EYES: PERRLA, EOMI x 2, No injected conjunctiva, no nystagmus. EARS: Hearing grossly intact. Ear canals and tympanic membranes are within normal limits. MOUTH: Oropharynx within normal limits. NECK: Supple, trachea is midline, no adenopathy, no JVD, no carotid bruit, no c- spine tenderness, neck with full ROM. CHEST: Symmetric, no tenderness at palpation LUNGS: Clear to auscultation bilaterally. No wheezing or crackles. CVS: Regular rate and rhythm, S1 and S2 present, no murmurs or gallops appreciated. ABDOMEN: Soft, non-tender. No signs of distention. No rebound no guarding, and no masses palpated. Bowel sounds are normal. EXTREMITIES: FROM in all major joints, no edema, no cyanosis or clubbing. NEURO: Alert and oriented x 3. No acute neurological deficits. Speech is normal and follows commands. Patient has slight weakness in left side from old stroke, has unsteady gait. GCS 15, NIH 1. SKIN: Dry and warm Triage Information Reviewed: Yes Vital Signs On Initial Exam: Initial Vitals Temp Pulse Resp BP Pulse Ox 97.9 F 59 16 129/90 98 05/20/18 08:40 05/20/18 08:40 05/20/18 08:40 05/20/18 08:40 05/20/18 08:40 Vital Signs Reviewed: Yes Diagnostics - Vital Signs Vital Signs Temp Pulse Resp BP Pulse Ox 05/20/18 09:00 55 97 05/20/18 08:52 54 122/60 96 05/20/18 08:40 97.9 F 59 16 129/90 98 - Laboratory Result Diagrams: 05/20/18 10:14 05/20/18 10:14 Lab Statement: Any lab studies that have been ordered have been reviewed, and results considered in the medical decision making process. - Radiology CXR Radiology Interpretation Completed By: Radiologist Summary of Radiographic Findings: IMPRESSION: HYPERINFLATION, CONSISTENT WITH COPD. NO ACTIVE CARDIOPULMONARY DISEASE. THIS REPORT WAS REVIEWED BY ED PHYSICIAN. - CT BRAIN CT CT Interpretation Completed By: Radiologist Summary of CT Findings: IMPRESSION: 1. NO ACUTE INTRACRANIAL PATHOLOGY. 2. PROXIMAL VESSEL ISCHEMIC CHANGES WITH EVIDENCE OF PREVIOUS INFARCTS OF THE RIGHT. CEREBRAL HEMISPHERE. THIS REPORT WAS REVIEWED BY ED PHYSICIAN. - EKG 0926 Cardiac Rate: Bradycardia - RATE OF 52 BPM EKG Rhythm: Sinus Bradycardia ST Segment: Normal EKG Comparison: No Significant Change - COMPARED TO 12/08/17 EKG Summary of EKG Findings: EKG showed sinus bradycardia with rate of 52 bpm, no ST elevation, no significant change from 12/08/17 EKG. [employer] - NIH Scale Level of Consciousness: Alert/Keenly Responsive Ask Patient the Month and His/Her Age: Both Correct Ask Pt to Open/Close Eyes and Contingents Supervisor/Release Non-Paretic Hand: Both Correctly Best Gaze (Only Horizontal Eye Movement): Normal Visual Field Testing: No Visual Loss Facial Paresis-Pt to Smile & Close Eyes or Grimace Symmetry: Normal/Symmetrical Motor Function - Right Arm: No Drift-Holds 10 Seconds Motor Function - Left Arm: No Drift-Holds 10 Seconds Motor Function - Right Leg: No Drift-Holds 10 Seconds Motor Function - Left Leg: No Drift-Holds 10 Seconds Limb Ataxia-Must be out of Proportion to Weakness Present: Present in One Limb Sensory (Use Pinprick to Test Arms/Legs/Trunk/Face): Normal Best Language (Describe Picture, Name Items): No Aphasia Dysarthria (Read Several Words): Normal Extinction and Inattention: No Abnormality Total Score: 1 Re-Evaluation - Re-Evaluation First Eval Re-Evaluation Time: 14:35 Comment: Discussed all the findings and test results with the patient. Patient was instructed to return to the emergency room immediately if any of the symptoms return or worsens. Plan of care was discussed with the patient and understands and agrees. All questions were answered at patient satisfaction. There were no further complaints or concerns. Lung exam before discharge: CTA B /L. Good air exchange. No wheezing or crackles heard. CVS: S1 and S2 present. No murmurs appreciated. Patient is alert and oriented x 3. Patient is hemodynamically stable. Patient will be discharged home with follow up PCP and Dr. Giles in the next 2-3 days Dizzy Course/Dx - Course Assessment/Plan: Patient is a 82 y/o M presenting to ED with complaints of being "wobbly" and unsteady gait for the past two days. He states that Sx worsened this morning, notes that moving head quickly aggravates Sx. Hx of right sided CVA and endarterectomy three years ago, patient has left sided deficits as a result from stroke. Patient is on Plavix. On triage, pain is denied, nothing is noted to aggravate/alleviate Sx. Home medications and allergies are reviewed. Blood work without any significant abnormality except for glucose of 101. Head CT no acute intracranial pathology, only chronic findings. At this point I discussed my physical exam, findings and test results with Dr. Giles who came and examined the patient. After his assessment he recommends for the patient to be discharged home and follow-up at his office. The patient understands the plan, therefore he will be discharged home with follow-up with PCP and Dr. Giles. Patient is hemodynamically stable alert and oriented 3. I discussed all the findings and test results with the patient. Patient was instructed to return to the emergency room immediately if any of the symptoms return or worsens. Plan of care was discussed with the patient and understands and agrees. All questions were answered at patient satisfaction. There were no further complaints or concerns. Lung exam before discharge: CTA B/L. Good air exchange. No wheezing or crackles heard. CVS: S1 and S2 present. No murmurs appreciated. Patient is alert and oriented x 3. Patient is hemodynamically stable. Patient will be discharged home with follow up PCP and Dr. Giles in the next 2-3 days - Diagnoses Provider Diagnoses: Gait disturbance - Provider Notifications Discussed Care Of Patient With: Quirino Giles Time Discussed With Above Provider: 11:26 Instructed by Provider To: Other - Patient's case was discussed with Dr. Giles , Dr. Giles will come to ED to evaluate patient. 1405 - Dr. Giles arrived in ED; after his evaluation, he states patient can be discharged to home and follow up with him in office. Discharge - Sign-Out/Discharge Documenting (check all that apply): Patient Departure - discharge - Discharge Plan Condition: Stable Disposition: HOME Patient Education Materials: Weakness (ED) Referrals: Chriss Romero MD [Primary Care Provider] - 3 Days Quirino Giles MD [Medical Doctor] - 3 Days Additional Instructions: RETURN TO ED FOR ANY NEW OR WORSENING SYMPTOMS. FOLLOW UP WITH PRIMARY CARE PHYSICIAN AND NEUROLOGIST IN THREE DAYS. - Billing Disposition and Condition Condition: STABLE Disposition: Home - Attestation Statements Document Initiated by Scribe: Yes Documenting Scribe: LUCIANA COLLADO Provider For Whom Ana María is Documenting (Include Credential): TAMRA ESTES MD Scribe Attestation: LUCIANA Null , scribed for TAMRA ESTES MD on 05/20/18 at 1807. Scribe Documentation Reviewed: Yes Provider Attestation: The documentation as recorded by the LUCIANA chambers accurately reflects the service I personally performed and the decisions made by me, TAMRA ESTES MD Status of Scribe Document: Viewed
--- OUTSIDE RECORDS SUMMARY | 2018-05-20 09:37 | XMS REPORT | Continuity of Care Document ---
:1935 External Reference #:[id number] Author Name Snow Ontiveros Care Team Providers Name Role Phone Chriss Romero MD Primary Care Physician Unavailable Payers Type Date Identification Numbers Payment Provider Subscriber Effective: Policy Number: [id number] Medicare Huma [employer] 2001 PayID: [id number] [address] [place] [address] Policy Number: [id number] [facility] Huma Blue PayID: [id number] [address] [place] [address] Expires: 2009 Policy Number: [id number] [facility] Huma Blue PayID: [id number] [address] [place] [address] Advance Directives Type Date Description Status Comment Other Directive 11/20/2017 Health Care Proxy Current and Verified Problems Date Description Provider Status Onset: 07/13/2011 [...] 01/03/2017 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 Active episodes Onset: 04/03/2018 Dysphagia Mulu Blackwell NP Active Note: 09/19/2016 Onset: 07/21/2011 Electrocardiogram abnormal Olaf Hahn M.D. 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 Recreational Drug Use Denies Drug Use Smoking Status Reviewed: 05/09/18 Patient is a former patient quit when he smoker was 40 yrs old, smoked 3-4 ppd at most smoked for approx 20 yrs. Exercise Type/Frequency Exercises rarely Allergies, Adverse Reactions, Alerts Date Description Reaction Status Severity Comments 11/14/2013 Narcotic Active after surgery, confusion, hypotention 12/27/2016 Morphine Liposomal Active 01/03/2017 Cephalexin Active nausea, candidiasis 11/14/2013 NKDA Inactive Medications Medication Date Status Form Strength Qnty SIG Indications Ordering Provider Trazodone HCL 05/01/ Active Tablets 50mg 180tab take 2 G47.00 Zsofia 2017 s tablet by Sohail, mouth [employer] every night at bedtime as needed insomnia Lorazepam 05/01/ Active Tablets 0.5mg 60tabs 1 tab by F41.9 Zsofia 2018 mouth 2x Sohail, daily as [employer] needed for anxiety Omeprazole 03/28/ Active Capsules 20mg 90caps 1 by mouth Mulu Marin DR every day HERBER Blackwell Levothyroxine 11/08/ Active Tablets 125mcg 90tabs take 1 Ramila Sodium 2018 tablet by Cotton, mouth M.D. every day Amlodipine 09/10/ Active Tablets 10mg 90tabs 1 by mouth Chriss Besylate 2018 every day Aldair Romero M.D.,FACP Cpap Mask And 08/16/ Active Device cpap R06.81 Chriss Supplies 2018 supplies - jayne Cabrera M.D.,[facility] cushion, tubing, filters, for sleep apnea R06.02 Clopidogrel 03/14/2017 Active Tablets 75mg 90tabs Take 1 Ramila Bisulfate Tablet By Brissa Mansfield Mouth Every Day Atenolol 02/16/2017 Active Tablets 50mg 90tabs Take 1 Yash E. Tablet By Brissa Nevarez Mouth Every Day Trazodone HCL Active Tablets 50mg 90tabs 1 tablet at Balwinder Quinteros bedtime Brissa Romero,FAC Aspirin Active Tablets DR 325mg 1 by mouth Unknown every day Atorvastatin Active Tablets 80mg 90tabs 1 by mouth E78. [place] Calcium every day 5 Brissa Soliz Proscar Active Tablets 5mg 1 by mouth Unknown every day Flomax Active Capsules 0.4mg 1 by mouth Unknown at bedtime Escitalopram Active Tablets 10mg Take 1 F33. Unknown Oxalate Tablet By 1 Mouth Every Day I69.315 Lisinopril Active Tablets 10mg 1 by mouth Unknown every day Lisinopril 09/19/2017 - Hx Tablets 20mg 90tabs 1 by mouth Chriss 11/20/2017 every day Aldair Romero M.D.,[facility] Levothyroxine 09/10/2017 - Hx Tablets 137mcg 30tabs 1 by mouth Balwinder Terry Sodium 11/08/2017 every day Aldair Romero M.D.,[facility] Omeprazole 02/15/2017 - Hx Capsules DR 20mg 30caps 1 by mouth Other 11/20/2017 every day Ordering Provider Aripiprazole 02/15/2017 - Hx Tablets 2mg 1/2 tab q day Other 09/10/2017 Ordering Provider Amlodipine 02/07/2017 - Hx Tablets 5mg 30tabs Take 1 Tablet Chriss Besylate 09/10/2017 By Mouth Aldair Romero Every Day Brissa,[facility] Ezetimibe 02/06/2017 - Hx Tablets 10mg 30tabs 1 tab by E7 Qutaybeh 11/20/2017 mouth every 8. S. day. 5 Brissa Hahn Lisinopril 01/31/2017 - Hx Tablets 10mg 90tabs take 1 tablet Chriss 09/19/2017 by mouth Aldair Romero, every day Brissa,IGLESIA Levothyroxine 01/30/2017 - Hx Tablets 150mcg 30tabs 1 by mouth Balwinder Terry Sodium 09/10/2017 every day Aldair [facility] M.D.,[facility] Bupropion HCL 01/30/2017 - Hx Tablets ER 150mg 30tabs 1 by mouth Other ER (SR) 12/12/2017 12HR every day Ordering Provider Fluoxetine HCL 01/03/2017 - Hx Tablets 20mg 3 by mouth Chriss 01/30/2017 every day Aldair Romero M.D.,NORYP Fluconazole 12/29/2016 - Hx Tablets 150mg 1tabs [...] 1-2 Neymar 03/18/2013 tabs po q 4-6 Young, hours prn M.D. pain Voltaren 11/07/2012 - Hx Gel 1% Lrgtube apply 2 grams Neymar 03/18/2013 topically Young, three times a M.D. day Percocet 08/29/2012 - Hx Tablets 5-325m 60tabs take 1-2 tabs Neymar 03/18/2013 g po q4-6 hours Young, prn pain M.D. Hydrocodone/Jose 05/23/2012 - Hx Tablets 5-325m 60tabs 1-2 po q 4-6 Neymar taminophen 02/26/2013 g hours prn Young, pain M.D. Percocet 05/06/2012 - Hx Tablets 5-325m 30tabs 1-2 po q4-6h Neymar 02/26/2013 g prn susanna Marrero M.D. Ultram 03/26/2012 - Hx Tablets 50mg [...] Tablets 80mg 90tabs 1 po qhs Yash Guerrero 02/01/2016 Brissa Nevarez Zoloft 05/19/2009 - Hx Tablets 50mg 90tabs 1 po qd Yash Guerrero 10/06/2011 Brissa Nevarez Diltiazem CD 07/10/2008 - Hx Caps ER 24HR 180mg 90caps 1 po qd Yash Guerrero 07/13/2011 Brissa Nevarez Simvastatin 06/22/2008 - Hx Tablets 20mg 90tabs 1 po qd Yash Guerrero 02/14/2010 take with loly Nevarez M.D. of simvastatin 40 mgm Zithromax Z-Jose Guadalupe 03/30/2008 - Hx Tablets 250mg 1Pack as per Yash Guerrero 05/04/2009 luis antonio Nevarez M.D. Atenolol 10/10/2007 - Hx Tablets 25mg 90tabs 1 po qd Yash Geurrero 02/16/2017 Brissa Nevarez Simvastatin 10/10/2007 - Hx [...] Tablets .15 90tabs 1 po qd Yash Guerrero 01/04/2011 Brissa Nevarez Cardizem LA - Hx Tablets ER 180mg 90tabs 1 po qd Yash Guerrero 07/10/2008 24HR Brissa Nevarez Zoloft - Hx Tablets 50mg 90tabs 1 po qd Yash Guerrero 05/04/2009 Brissa Nevarez Zetia - Hx Tablets 10mg 90tabs 1 PO Q Latrell, 10/10/2007 MD Kristian Lipitor - Hx Tablets 20mg 1Tab PO hs Latrell, 10/10/2007 MD Kristian Omeprazole - Hx [...] 100tabs 1 po qd Yash Guerrero 05/02/2012 Geri, M.D. Prednisone - Hx Tablets 5mg 70tabs daily [...] 1 by mouth Unknown 01/31/2017 every day Lorazepam - Hx Tablets 0.5mg 45tabs 1 tab by Almaz Banerjee 05/01/2018 mouth twice a 1. D. Gamaliel, day as needed 9 M.D.,FACP Iron Supplement - Hx Tablets 325(65 by [...] 2mg 1/2 tablet Unknown 02/15/2017 per day Aripiprazole - Hx Tablets 5mg take 1 tablet Unknown 12/12/2017 by mouth daily Flomax - Hx Capsules 0.4mg 90caps Take 1 Chriss 11/20/2017 Capsule By Beatriz Cabrera Every M.D.,FACP Day Amphetamine-Dex - Hx Tablets 15mg 1 by mouth Unknown troamphetamine 12/12/2017 every day Shingrix - Hx Suspension 50mcg To Be Given Unknown 11/20/2017 Rec By Pharmacist Per Standing Order Abilify - Hx Tablets 5mg 1 tab at Unknown 02/07/2018 bedtime Zetia - Hx Tablets 10mg 1 by mouth Unknown 02/07/2018 every day Ezetimibe - Hx Tablets 10mg Take 1 Tablet Unknown 02/21/2018 By Mouth Every Day Aripiprazole - Hx Tablets 2mg Take 1/2 Unknown 02/21/2018 Tablet By Mouth Every Day Aripiprazole - Hx Tablets 5mg Take 1 Tablet Unknown 02/21/2018 By Mouth AT Bedtime Omeprazole - Hx Capsules DR 40mg 30caps 1 by mouth Mulu 03/28/2018 every day HERBER Blackwell Medications Administered in Office Medication Date Status Form Strength Qnty SIG Indications Ordering Provider PPD Administered Injection Nurse Visit 018 [place] Depomedrol Administered Injection Neymar 80MG 012 Brissa Marrero Immunizations CPT Code Status Date Vaccine Reaction Lot # [id number] Given 02/28/2018 Fluzone High Dose 19549 Given 10/16/2017 Zoster (Shingles) Vaccine (HZV), Recombinant, Subunit, Adjuvanted 56963 Given 02/07/2017 Influenza Virus Vaccine, [id number] Quadrivalent, Split, Preservative Free 93200 Given 02/07/2017 Pneumococcal Conjugate Vaccine pt tolerated well [id number] Valent For Intramuscular Use Q2037 Given 03/09/2012 Fluvirin Im 3Yrs And Older Q2038 Given 02/17/2011 Fluzone Vaccine [id number] 87569 Given 03/25/2010 Influenza Virus 3Yrs & Over [id number] 75147 Given 03/25/2007 Influenza Virus 3Yrs & Over 15250 Given 03/25/2007 Influenza Virus 3Yrs & Over 90646 Given 10/12/2002 Td (History By Patient) 05715 Given 11/11/2001 Pneumovax (History By Patient) Vital Signs Date Vital Result Comment 05/09/2018 3:23pm Height 65 inches 5'5" Weight 177.00 lb Heart Rate 60 /min BP Systolic 130 mmHg BP Diastolic 82 mmHg BMI (Body Mass Index) 29.5 kg/m2 05/01/2018 9:16am Height 65 inches 5'5" Weight 185.00 lb Heart Rate 56 /min BP Systolic Sitting 122 mmHg BP Diastolic Sitting 72 mmHg O2 % BldC Oximetry 96 % BMI (Body Mass Index) 30.8 kg/m2 04/03/2018 2:34pm Height 65 inches 5'5" Weight 183.00 lb Heart Rate 67 /min BP Systolic Sitting 122 mmHg BP Diastolic Sitting 78 mmHg O2 % BldC Oximetry 97 % BMI (Body Mass Index) 30.4 kg/m2 03/28/2018 10:57am Height 65 inches 5'5" Weight 185.00 lb Heart Rate 68 /min BP Systolic 117 mmHg BP Diastolic 59 mmHg Respiratory Rate 16 /min Body Temperature 98.0 F BMI (Body Mass Index) 30.8 kg/m2 02/22/2018 10:22am Height 65 inches 5'5" Weight 180.38 lb w/ shoes Heart Rate 58 /min BP Systolic Sitting 116 mmHg Lue Reg Cuff BP Diastolic Sitting 56 mmHg Lue Reg Cuff BMI (Body Mass Index) 30.0 kg/m2 Ejection Fraction 50-55% Echo12/09/17 02/08/2018 11:27am Height 65 inches 5'5" Weight 174.00 lb Heart Rate 60 /min BP Systolic 102 mmHg BP Diastolic 64 mmHg Respiratory Rate 16 /min BMI (Body Mass Index) 29.0 kg/m2 11/20/2017 2:40pm Height 65 inches 5'5" Weight 188.50 lb Heart Rate 67 /min BP Systolic 142 mmHg BP Diastolic 66 mmHg Body Temperature 97.5 F O2 % BldC Oximetry 97 % BMI (Body Mass Index) 31.4 kg/m2 10/19/2017 2:21pm Weight 191.00 lb Heart Rate 69 /min BP Systolic Sitting 112 mmHg BP Diastolic Sitting 60 mmHg Body Temperature 98.3 F O2 % BldC Oximetry 96 % 09/19/2017 2:19pm Weight 198.00 lb Heart Rate 65 /min BP Systolic Sitting 180 mmHg BP Diastolic Sitting 90 mmHg BP Systolic Recheck 160 mmHg BP Diastolic Recheck 70 mmHg Body Temperature 97.6 F O2 % BldC Oximetry 93 % 09/10/2017 10:09am Height 67 inches 5'7" Weight 194.00 lb Heart Rate 73 /min BP Systolic Sitting 142 mmHg BP Diastolic Sitting 70 mmHg BP Systolic Recheck 152 mmHg BP Diastolic Recheck 72 mmHg Body Temperature 97.1 F O2 % BldC Oximetry 98 % BMI (Body Mass Index) 30.4 kg/m2 03/21/2017 1:08pm Height 70 inches 5'10" Weight 196.00 lb w/ shoes Heart Rate 66 /min BP Systolic Sitting 150 mmHg lue reg cuff BP Diastolic Sitting 58 mmHg lue reg cuff Respiratory Rate 18 /min BMI (Body Mass Index) 28.1 kg/m2 03/01/2017 8:05am Weight 193.25 lb Heart Rate 78 /min BP Systolic Sitting 150 mmHg BP Diastolic Sitting 90 mmHg Body Temperature 97.6 F O2 % BldC Oximetry 96 % 02/16/2017 3:38pm Weight 191.50 lb Heart Rate 68 /min BP Systolic Sitting 140 mmHg BP Diastolic Sitting 80 mmHg BP Systolic Recheck 170 mmHg BP Diastolic Recheck 92 mmHg Body Temperature 97.9 F O2 % BldC Oximetry 97 % 02/12/2017 2:23pm Height 67 inches 5'7" Weight 184.00 lb Heart Rate 72 /min BP Systolic Sitting 156 mmHg BP Diastolic Sitting 90 mmHg Respiratory Rate 16 /min BMI (Body Mass Index) 28.8 kg/m2 02/07/2017 2:00pm Weight 194.25 lb Heart Rate 74 /min BP Systolic Sitting 170 mmHg BP Diastolic Sitting 86 mmHg BP Systolic Recheck 180 mmHg BP Diastolic Recheck 82 mmHg Body Temperature 97.9 F O2 % BldC Oximetry 95 % 02/06/2017 2:28pm BP Systolic Sitting 202 mmHg Lue regular cuff BP Diastolic Sitting 100 mmHg Lue regular cuff 02/06/2017 1:14pm Height 67 inches 5'7" Weight 198.00 lb with shoes Heart Rate 66 /min BP Systolic Sitting 180 mmHg Rue reg cuff BP Diastolic Sitting 90 mmHg Rue reg cuff BP Systolic Standing 182 mmHg Rue reg cuff BP Diastolic Standing 98 mmHg Rue reg cuff Respiratory Rate 17 /min BMI (Body Mass Index) 31.0 kg/m2 Ejection Fraction 50-55% 01/26/2017-echo 01/31/2017 1:23pm Weight 202.00 lb w/shoes Heart Rate 88 /min BP Systolic Sitting 150 mmHg BP Diastolic Sitting 78 mmHg BP Systolic Recheck 162 mmHg BP Diastolic Recheck 90 mmHg Body Temperature 97.8 F O2 % BldC Oximetry 96 % 01/24/2017 10:18am Height 67 inches 5'7" Weight 194.00 lb Body Temperature 97.4 F Pain Level 0 BMI (Body Mass Index) 30.4 kg/m2 01/03/2017 3:20pm Height 67 inches 5'7" Weight 194.00 lb Heart Rate 80 /min Respiratory Rate 18 /min Pain Level 0 BMI (Body Mass Index) 30.4 kg/m2 01/03/2017 10:12am Height 70 inches 5'10" Weight 198.00 lb Heart Rate 64 /min BP Systolic Sitting 140 mmHg BP Diastolic Sitting 66 mmHg Body Temperature 98.3 F O2 % BldC Oximetry 96 % BMI (Body Mass Index) 28.4 kg/m2 12/27/2016 1:36pm Height 67 inches 5'7" Weight 194.00 lb Heart Rate 76 /min BP Systolic 115 mmHg BP Diastolic 79 mmHg Respiratory Rate 17 /min Body Temperature 97.8 F Pain Level 0 BMI (Body Mass Index) 30.4 kg/m2 08/22/2016 2:36pm Height 67 inches 5'7" Weight 191.00 lb with shoes Heart Rate 72 /min BP Systolic Sitting 120 mmHg LA lrg cuff BP Diastolic Sitting 82 mmHg LA lrg cuff BMI (Body Mass Index) 29.9 kg/m2 Ejection Fraction 55% -60% echo 02/29/16 02/02/2016 1:36pm Height 67 inches 5'7" Weight 194.00 lb w/shoes Heart Rate 70 /min BP Systolic Sitting 140 mmHg LA reg cuff BP Diastolic Sitting 72 mmHg LA reg cuff BMI (Body Mass Index) 30.4 kg/m2 Ejection Fraction 55-60% Echo 10/12/15 08/16/2015 9:10am Height 67 inches 5'7" Weight 181.00 lb Pain Level 2 BMI (Body Mass Index) 28.3 kg/m2 06/01/2015 10:31am Height 67 inches 5'7" Weight 180.00 lb Heart Rate 56 /min BP Systolic Sitting 132 mmHg BP Diastolic Sitting 72 mmHg Respiratory Rate 14 /min BMI (Body Mass Index) 28.2 kg/m2 05/10/2015 11:14am Height 67 inches 5'7" Weight 181.00 lb Pain Level 3 08/11 constant worse with activity BMI (Body Mass Index) 28.3 kg/m2 02/03/2015 10:11am Height 67 inches 5'7" Weight 181.00 lb BP Systolic Sitting 104 mmHg BP Diastolic Sitting 62 mmHg BP Systolic Standing 104 mmHg BP Diastolic Standing 16 mmHg BMI (Body Mass Index) 28.3 kg/m2 06/05/2014 3:11pm Height 67 inches 5'7" Weight 184.00 lb Heart Rate 58 /min BP Systolic Sitting 170 mmHg LA, reg BP Diastolic Sitting 72 mmHg LA, reg BMI (Body Mass Index) 28.8 kg/m2 05/04/2014 11:42am Height 67 inches 5'7" Weight 176.00 lb Heart Rate 60 /min BMI (Body Mass Index) 27.6 kg/m2 02/10/2014 4:46pm Height 67 inches 5'7" Weight 176.25 lb Heart Rate 58 /min BP Systolic Sitting 140 mmHg LA reg cuff BP Diastolic Sitting 76 mmHg LA reg cuff Respiratory Rate 12 /min BMI (Body Mass Index) 27.6 kg/m2 01/28/2014 1:09pm Height 67 inches 5'7" Weight 176.00 lb Heart Rate 64 /min BP Systolic Sitting 132 mmHg BP Diastolic Sitting 68 mmHg Respiratory Rate 15 /min BMI (Body Mass Index) 27.6 kg/m2 11/14/2013 8:21am Height 67 inches 5'7" Weight 180.00 lb Heart Rate 64 /min BP Systolic Sitting 162 mmHg left BP Diastolic Sitting 82 mmHg left Respiratory Rate 16 /min BMI (Body Mass Index) 28.2 kg/m2 10/06/2013 10:02am Height 67 inches 5'7" Heart Rate 57 /min BP Systolic 156 mmHg BP Diastolic 64 mmHg 07/24/2013 3:37pm Height 69 inches 5'9" Weight 195.00 lb Heart Rate 64 /min BP Systolic Sitting 138 mmHg BP Diastolic Sitting 70 mmHg BMI (Body Mass Index) 28.8 kg/m2 07/11/2013 10:15am Heart Rate 66 /min BP Systolic 156 mmHg BP Diastolic 76 mmHg 07/04/2013 3:49pm Height 67 inches 5'7" Heart Rate 76 /min BP Systolic Sitting 190 mmHg BP Diastolic Sitting 90 mmHg Respiratory Rate 16 /min 06/23/2013 1:28pm Height 67 inches 5'7" Weight 197.00 lb Heart Rate 72 /min BP Systolic 140 mmHg BP Diastolic 68 mmHg BMI (Body Mass Index) 30.9 kg/m2 02/26/2013 2:58pm Height 67 inches 5'7" Weight 193.00 lb Heart Rate 72 /min BP Systolic Sitting 166 mmHg BP Diastolic Sitting 78 mmHg Respiratory Rate 20 /min BMI (Body Mass Index) 30.2 kg/m2 06/07/2012 1:51pm Height 67 inches 5'7" Weight 187.00 lb Heart Rate 74 /min BP Systolic Sitting 154 mmHg BP Diastolic Sitting 78 mmHg Respiratory Rate 20 /min BMI (Body Mass Index) 29.3 kg/m2 05/02/2012 8:34am Height 67 inches 5'7" Weight 183.00 lb Heart Rate 80 /min BP Systolic Sitting 120 mmHg BP Diastolic Sitting 60 mmHg BMI (Body Mass Index) 28.7 kg/m2 03/27/2012 3:58pm Height 67 inches 5'7" Weight 189.00 lb w/leg brace Heart Rate 60 /min BP Systolic Sitting 148 mmHg BP Diastolic Sitting 68 mmHg BMI (Body Mass Index) 29.6 kg/m2 03/22/2012 10:14am Height 67 inches 5'7" Weight 186.00 lb Heart Rate 64 /min BP Systolic Sitting 120 mmHg BP Diastolic Sitting 60 mmHg BMI (Body Mass Index) 29.1 kg/m2 10/19/2011 10:24am Height 67 inches 5'7" Weight 180.00 lb Heart Rate 64 /min BP Systolic Sitting 140 mmHg BP Diastolic Sitting 80 mmHg BMI (Body Mass Index) 28.2 kg/m2 10/06/2011 10:14am Height 66.75 inches 5'6.75" Weight 182.00 lb Heart Rate 60 /min BP Systolic Sitting 120 mmHg BP Diastolic Sitting 78 mmHg BMI (Body Mass Index) 28.7 kg/m2 09/20/2011 2:32pm Height 66.75 inches 5'6.75" Weight 179.00 lb Heart Rate 60 /min BP Systolic Sitting 140 mmHg BP Diastolic Sitting 82 mmHg BMI (Body Mass Index) 28.2 kg/m2 07/21/2011 9:16am Height 66.75 inches 5'6.75" Weight 184.00 lb Heart Rate 54 /min BP Systolic Sitting 130 mmHg left arm, right arm 124 BP Diastolic Sitting 80 mmHg left arm, right arm 124 BP Systolic Standing 110 mmHg 78 BP Diastolic Standing 70 mmHg 78 BMI (Body Mass Index) 29.0 kg/m2 07/13/2011 10:05am Height 66.75 inches 5'6.75" Weight 178.50 lb Heart Rate 56 /min BP Systolic Sitting 120 mmHg BP Diastolic Sitting 66 mmHg BMI (Body Mass Index) 28.2 kg/m2 01/04/2011 10:16am Height 68 inches 5'8" Weight 173.00 lb Heart Rate 60 /min BP Systolic Sitting 132 mmHg BP Diastolic Sitting 80 mmHg BMI (Body Mass Index) 26.3 kg/m2 07/06/2010 10:06am Weight 179.00 lb Heart Rate 64 /min BP Systolic Sitting 126 mmHg BP Diastolic Sitting 68 mmHg 02/16/2010 3:20pm Weight 209.00 lb Heart Rate 80 /min BP Systolic 130 mmHg BP Diastolic 88 mmHg BP Systolic Sitting 128 mmHg BP Diastolic Sitting 80 mmHg 02/10/2010 11:26am Weight 213.00 lb Heart Rate 60 /min BP Systolic Sitting 148 mmHg BP Diastolic Sitting 88 mmHg 05/04/2009 2:19pm Weight 203.00 lb Heart Rate 60 /min BP Systolic Sitting 128 mmHg BP Diastolic Sitting 62 mmHg 03/30/2008 1:28pm Height 67.5 inches 5'7.50" Weight 205.00 lb Heart Rate 64 /min BP Systolic Sitting 132 mmHg BP Diastolic Sitting 86 mmHg Body Temperature 96.7 F BMI (Body Mass Index) 31.6 kg/m2 10/10/2007 10:05am Height 67.5 inches 5'7.50" Weight 205.00 lb Heart Rate 68 /min BP Systolic Sitting 132 mmHg BP Diastolic Sitting 74 mmHg BMI (Body Mass Index) 31.6 kg/m2 04/10/2007 11:09am Height 67.5 inches 5'7.50" BP Systolic Sitting 150 mmHg BP Diastolic Sitting 88 mmHg 03/25/2007 3:16pm Height 67.5 inches 5'7.50" Weight 202.00 lb Heart Rate 68 /min BP Systolic Sitting 114 mmHg BP Diastolic Sitting 82 mmHg BMI (Body Mass Index) 31.2 kg/m2 Results Test Date Facility Test Result H/L Range Note Laboratory test 03/06/2018 [facility] TSH 0.60 mcIU/mL N 0.34- 5.[address] ([place] [address] Stim Horm) [phone] Hemoglobin A1c (Glyco HGB) 6.2 % High 4.0-5.6 1 Laboratory test 01/01/2018 [facility] TSH (Thyroid 0.83 mcIU/mL N 0.34-5.[address] Stim Horm) [place] [address] [phone] Hemoglobin A1c (Glyco HGB) 6.1 % High 4.0-5.6 2 Inr/Protime 12/08/2017 [facility] Inr 0.94 N 0.77-1.[address] [place] [address] [phone] CBC Auto Diff 12/08/2017 [facility] White Blood 5.3 10^3/uL N 3.5-10.[address] [place] [address] [phone] Red Blood Count 4.54 10^6/uL N 4.00-5.40 Hemoglobin 13.6 g/dL Low 14.0-18.0 Hematocrit 40 % Low 42-52 Mean Corpuscular Volume 88 fL N 80-94 Mean Corpuscular Hemoglobin 30 pg N 27-31 Mean Corpuscular HGB Conc 34 g/dL N 31-36 Red Cell Distribution Width 14 % N 10.5-15 Platelet Count 162 10^3/uL N 150-450 Mean Platelet Volume 7.8 um3 N 7.4-10.4 Abs Neutrophils 3.5 10^3/uL N 1.5-7.7 Abs Lymphocytes 1.2 10^3/uL N 1.0-4.8 Abs Monocytes 0.5 10^3/uL N 0-0.8 Abs Eosinophils 0.1 10^3/uL N 0-0.6 Abs Basophils 0 10^3/uL N 0-0.2 Abs Nucleated RBC 0 10^3/uL Granulocyte % 66.3 % N 38-83 Lymphocyte % 23.1 % Low 25-47 Monocyte % 8.9 % High 0-7 Eosinophil % 1.3 % N 0-6 Basophil % 0.4 % N 0-2 Nucleated Red Blood Cells % 0 Laboratory test 12/08/2017 [facility] Lactic Acid 1.5 mmol/L N 0.5-2.0 3 finding [address] [place] [address] [phone] Comp Metabolic 12/08/2017 [facility] Sodium 140 mmol/L N 135- 145 Panel [address] [place] [address] [phone] Potassium 3.4 mmol/L Low 3.5-5.0 Chloride 100 mmol/L Low 101-111 Co2 Carbon Dioxide 34 mmol/L High 22-32 Anion Gap 6 mmol/L N 2-11 Glucose 131 mg/dL High 70-100 Blood Urea Nitrogen 12 mg/dL N 6-24 Creatinine 0.85 mg/dL N 0.67-1.17 BUN/Creatinine Ratio 14.1 N 8-20 Calcium 8.8 mg/dL N 8.6-10.3 Total Protein 6.5 g/dL N 6.4-8.9 Albumin 3.7 g/dL N 3.2-5.2 Globulin 2.8 g/dL N 2-4 Albumin/Globulin Ratio 1.3 N 1-3 Total Bilirubin 0.40 mg/dL N 0.2-1.0 Alkaline Phosphatase 65 U/L N 34-104 Alt 18 U/L N 7-52 Ast 16 U/L N 13-39 Egfr Non- 86.5 >60 Egfr 104.7 >60 4 Laboratory test 12/08/2017 [facility] Troponin-I (TnI) 0.00 ng/ mL <0.04 finding [address] [place] [address] [phone] TSH (Thyroid Stim Horm) 0.75 mcIU/mL N 0.34-5.60 Magnesium 2.1 mg/dL N 1.9-2.7 Hemoglobin A1c (Glyco HGB) 6.6 % High 4.0-5.6 5 Urinalysis Profile 12/08/2017 [facility] Urine Color Yellow [address] [place] [address] [phone] Urine Appearance Cloudy Urine Specific Cook 1.016 N 1.010-1.030 Urine pH 7.0 N 5-9 Urine Urobilinogen Negative Negative Urine Ketones Negative Negative Urine Protein Negative Negative Urine Leukocytes Negative Negative Urine Blood 1+ Abnormal Negative Urine Nitrite Negative Negative Urine Bilirubin Negative Negative Urine Glucose 1+(50 mg/dL) Abnormal Negative Urine White Blood Cell Trace(0-5/hpf) Absent Urine Red Blood Cell 2+(6-10/hpf) Abnormal Absent Urine Bacteria Absent Absent Urine Squamous Epithelial Cell Present Abnormal Absent Urine Culture And 12/08/2017 [facility] Urine Culture SEE RESULT [address] [place] [address] [phone] Laboratory test 11/21/2017 [facility] Stool Culture SEE RESULT 7, [address] [place] [address] [phone] C Difficile PCR SEE RESULT BELOW 9 Stool Calprotectin 293 g/G Abnormal 10 O&P Ova & Parasites Screen SEE RESULT BELOW 11 Laboratory test 11/02/2017 [facility] TSH (Thyroid 0.18 Low 0.34-5.[address] Stim Horm) mcIU/[place] [address] [phone] Hemoglobin A1c (Glyco HGB) 6.3 % High 4.0-5.6 12 Laboratory test 09/17/2017 [facility] Lactic Acid 0.7 mmol/L N 0.5-2.0 [address] [place] [address] [phone] CBC Auto Diff 09/17/2017 [facility] White Blood 6.5 10^3/uL N 3.5-10.[address] [place] [address] [phone] Red Blood Count 4.56 10^6/uL N 4.0-5.4 Hemoglobin 13.5 g/dL Low 14.0-18.0 Hematocrit 40 % Low 42-52 Mean Corpuscular Volume 87 fL N 80-94 Mean Corpuscular Hemoglobin 30 pg N 27-31 Mean Corpuscular HGB Conc 34 g/dL N 31-36 Red Cell Distribution Width 14 % N 10.5-15 Platelet Count 158 10^3/uL N 150-450 Mean Platelet Volume 8.7 um3 N 7.4-10.4 Abs Neutrophils 4.3 10^3/uL N 1.5-7.7 Abs Lymphocytes 1.5 10^3/uL N 1.0-4.8 Abs Monocytes 0.6 10^3/uL N 0-0.8 Abs Eosinophils 0.1 10^3/uL N 0-0.6 Abs Basophils 0 10^3/uL N 0-0.2 Abs Nucleated RBC 0 10^3/uL Granulocyte % 65.7 % N 38-83 Lymphocyte % 22.3 % Low 25-47 Monocyte % 9.6 % High 0-7 Eosinophil % 2.1 % N 0-6 Basophil % 0.3 % N 0-2 Nucleated Red Blood Cells % 0.1 Comp Metabolic 09/17/2017 [facility] Potassium 3.3 mmol/L Low 3.5-5.0 Panel [address] [place] [address] [phone] Chloride 105 mmol/L N 101-111 Co2 Carbon Dioxide 30 mmol/L N 22-32 Glucose 107 mg/dL High 70-100 Blood Urea Nitrogen 21 mg/dL N 6-24 Creatinine 0.86 mg/dL N 0.67-1.17 BUN/Creatinine Ratio 24.4 High 8-20 Calcium 8.9 mg/dL N 8.6-10.3 Total Protein 7.1 g/dL N 6.4-8.9 Albumin 4.2 g/dL N 3.2-5.2 Globulin 2.9 g/dL N 2-4 Albumin/Globulin Ratio 1.4 N 1-3 Total Bilirubin 0.40 mg/dL N 0.2-1.0 Alkaline Phosphatase 65 U/L N 34-104 Alt 19 U/L N 7-52 Ast 17 U/L N 13-39 Egfr Non- 85.4 >60 Egfr 109.8 >60 14 Sodium 142 mmol/L N 139-145 Anion Gap 7 mmol/L N 2-11 Laboratory test 09/17/2017 [facility] Troponin-I (TnI) 0.01 ng/ mL <0.[address] [place] [address] [phone] TSH (Thyroid Stim Horm) 0.02 mcIU/mL Low 0.34-5.60 Laboratory test 08/30/2017 [facility] Vitamin B12 310 pg/mL N 180-914 15 finding [facility] [place] [address] [phone] TSH (Thyroid Stim Horm) 0.15 mcIU/mL Low 0.34-5.60 16 Basic Metabolic Panel 08/30/2017 [facility] Sodium 142 mmol/L N 139-[address] [place] [address] [phone] Potassium 3.6 mmol/L N 3.5-5.0 Chloride 104 mmol/L N 101-111 Co2 Carbon Dioxide 30 mmol/L N 22-32 Anion Gap 8 mmol/L N 2-11 Glucose 123 mg/dL High 70-100 Blood Urea Nitrogen 17 mg/dL N 6-24 Creatinine 0.94 mg/dL N 0.67-1.17 BUN/Creatinine Ratio 18.1 N 8-20 Calcium 8.8 mg/dL N 8.6-10.3 Egfr Non- 77.0 >60 Egfr 99.1 >60 17 Lipid Profile 08/30/2017 [facility] Triglycerides 79 mg/dL 18 (Trig/Chol/HDL) [facility] [place] [address] [phone] Cholesterol 122 mg/dL 19 HDL Cholesterol 43.4 mg/dL 20 LDL Cholesterol 63 mg/dL 21 Laboratory test 04/17/2017 [facility] Renin <0.6 ng/mL/h [address] [place] [address] [phone] Laboratory test 04/17/2017 [facility] Renin <0.6 ng/mL/h [address] [place] [address] [phone] Laboratory test 02/13/2017 [facility] Lactic Acid 1.3 mmol/L N 0.5-2. 24 finding [facility] [address] [place] [address] [phone] CBC Auto Diff 02/13/2017 [facility] White Blood 5.9 10^3/uL N 3.5-10 [facility] Count .8 [place] [address] [phone] Red Blood Count 4.47 10^6/uL N 4.0-5.4 Hemoglobin 13.5 g/dL Low 14.0-18.0 Hematocrit 39 % Low 42-52 Mean Corpuscular Volume 88 fL N 80-94 Mean Corpuscular Hemoglobin 30 pg N 27-31 Mean Corpuscular HGB Conc 34 g/dL N 31-36 Red Cell Distribution Width 13 % N 10.5-15 Platelet Count 165 10^3/uL N 150-450 Mean Platelet Volume 9 um3 N 7.4-10.4 Abs Neutrophils 3.8 10^3/uL N 1.5-7.7 Abs Lymphocytes 1.3 10^3/uL N 1.0-4.8 Abs Monocytes 0.7 10^3/uL N 0-0.8 Abs Eosinophils 0.2 10^3/uL N 0-0.6 Abs Basophils 0 10^3/uL N 0-0.2 Abs Nucleated RBC 0 10^3/uL N Granulocyte % 64.5 % N 38-83 Lymphocyte % 21.2 % Low 25-47 Monocyte % 11.1 % High 1-9 Eosinophil % 2.8 % N 0-6 Basophil % 0.4 % N 0-2 Nucleated Red Blood Cells % 0.1 N Comp Metabolic Panel 02/13/2017 [facility] Sodium 140 mmol/L N 133-145 [address] [place] [address] [phone] Potassium 3.7 mmol/L N 3.5-5.0 Chloride 104 mmol/L N 101-111 Co2 Carbon Dioxide 31 mmol/L N 22-32 Anion Gap 5 mmol/L N 2-11 Glucose 109 mg/dL High 70-100 Blood Urea Nitrogen 14 mg/dL N 6-24 Creatinine 0.85 mg/dL N 0.67-1.17 BUN/Creatinine Ratio 16.5 N 8-20 Calcium 9.0 mg/dL N 8.6-10.3 Total Protein 6.6 g/dL N 6.4-8.9 Albumin 3.9 g/dL N 3.2-5.2 Globulin 2.7 g/dL N 2-4 Albumin/Globulin Ratio 1.4 N 1-3 Total Bilirubin 0.50 mg/dL N 0.2-1.0 Alkaline Phosphatase 52 U/L N 34-104 Alt 16 U/L N 7-52 Ast 19 U/L N 13-39 Egfr Non- 86.7 N >60 Egfr 111.5 N >60 25 Laboratory test 02/13/2017 [facility] Troponin-I (TnI) 0.00 ng/ mL N <0.04 finding [address] [place] [address] [phone] Lipid Profile 02/13/2017 [facility] Triglycerides 80 mg/dL N 26 (Trig/Chol/HDL) [address] [place] [address] [phone] Cholesterol 93 mg/dL N 27 HDL Cholesterol 36.8 mg/dL N 28 LDL Cholesterol 40 mg/dL N 29 Basic Metabolic Panel 02/01/2017 [facility] Sodium 140 mmol/L N 133-145 [address] [place] [address] [phone] Potassium 3.9 mmol/L N 3.5-5.0 Chloride 103 mmol/L N 101-111 Co2 Carbon Dioxide 33 mmol/L High 22-32 Anion Gap 4 mmol/L N 2-11 Glucose 123 mg/dL High 70-100 Blood Urea Nitrogen 12 mg/dL N 6-24 Creatinine 0.78 mg/dL N 0.67-1.17 BUN/Creatinine Ratio 15.4 N 8-20 Calcium 9.2 mg/dL N 8.6-10.3 Egfr Non- 95.8 N >60 Egfr 123.2 N >60 30 Lipid Profile 02/01/2017 [facility] Triglycerides 149 mg/dL N 31 (Trig/Chol/HDL) [address] [place] [address] [phone] Cholesterol 178 mg/dL N 32 HDL Cholesterol 47.9 mg/dL N 33 LDL Cholesterol 100 mg/dL N 34 Laboratory test 02/01/2017 [facility] Vitamin B12 310 pg/mL N 180-914 35 finding [address] [place] [address] [phone] Laboratory test 01/17/2017 [facility] Magnesium 2.2 mg/dL N 1.9-2.7 finding [address] [place] [address] [phone] Basic Metabolic 01/17/2017 [facility] Sodium 140 mmol/L N 133- 145 Panel [address] [place] [address] [phone] Potassium 3.6 mmol/L N 3.5-5.0 Chloride 104 mmol/L N 101-111 Co2 Carbon Dioxide 30 mmol/L N 22-32 Anion Gap 6 mmol/L N 2-11 Glucose 100 mg/dL N 70-100 Blood Urea Nitrogen 17 mg/dL N 6-24 Creatinine 0.90 mg/dL N 0.67-1.17 BUN/Creatinine Ratio 18.9 N 8-20 Calcium 8.7 mg/dL N 8.6-10.3 Egfr Non- 81.2 N >60 Egfr 104.4 N >60 36 Basic Metabolic Panel 02/03/2014 Sodium 139 mmol/L N 133-145 Potassium 3.8 mmol/L N 3.7-5.6 Chloride 102 mmol/L N 101-111 Co2 Carbon Dioxide 31 mmol/L N 22-32 Anion Gap 6 mmol/L N 2-11 Glucose 97 mg/dL N 70-100 Blood Urea Nitrogen 13 mg/dL N 6-24 Creatinine 0.84 mg/dL N 0.67-1.17 BUN/Creatinine Ratio 15.5 N 8-20 Calcium 8.9 mg/dL N 8.6-10.3 Egfr Non- 88.6 N >60 Egfr 114.0 N >60 37 Inr/Protime 02/03/2014 Inr 0.89 N 0.85-1.06 CBC Auto Diff 02/03/2014 White Blood Count 5.8 10^3/uL N 4.8-10.8 Red Blood Count 4.42 10^6/uL N 4.0-5.4 Hemoglobin 13.6 g/dL Low 14.0-18.0 Hematocrit 40 % Low 42-52 Mean Corpuscular Volume 91 fL N 80-94 Mean Corpuscular Hemoglobin 31 pg N 27-31 Mean Corpuscular HGB Conc 34 g/dL N 31-36 Red Cell Distribution Width 14 % N 10.5-15 Platelet Count 170 10^3/uL N 150-450 Mean Platelet Volume 8 um3 N 7.4-10.4 Abs Neutrophils 3.7 10^3/uL N 1.5-7.7 Abs Lymphocytes 1.4 10^3/uL N 1.0-4.8 Abs Monocytes 0.6 10^3/uL N 0-0.8 Abs Eosinophils 0.2 10^3/uL N 0-0.6 Abs Basophils 0 10^3/uL N 0-0.2 Abs Nucleated RBC 0 10^3/uL N Granulocyte % 62.9 % N 38-83 Lymphocyte % 23.9 % Low 25-47 Monocyte % 9.6 % High 1-9 Eosinophil % 2.8 % N 0-6 Basophil % 0.8 % N 0-2 Nucleated Red Blood Cells % 0.1 N Cath Panel 02/03/2014 Activated 30.6 seconds N 24.0-36.1 Partial Thrombo Time Inr/Protime 07/11/2013 [facility] Inr 0.97 0.85-1.[address] [place] [address] [phone] Basic Metabolic 07/11/2013 [facility] Sodium 141 mmol/L 133- [address] [place] [address] [phone] Potassium 3.8 mmol/L 3.5-5.0 Chloride 104 mmol/L 101-111 Co2 Carbon Dioxide 31.0 mmol/L 22-32 Anion Gap 6.0 mmol/L 2-11 Glucose 87 mg/dL 70-100 Blood Urea Nitrogen 21 mg/dL 6-24 Creatinine 0.70 mg/dL 0.50-1.40 BUN/Creatinine Ratio 30.0 High 8-20 Calcium 9.1 mg/dL 8.1-9.9 Egfr Non- 109.4 >60 Egfr 140.6 >60 38 CBC Auto Diff 07/11/2013 [facility] White Blood 6.4 10^3/uL 4.8-10.[address] [place] [address] [phone] Red Blood Count 4.20 10^6/uL 4.0-5.4 Hemoglobin [...] 0-2 Nucleated Red Blood Cells % 0 Cath Panel 07/11/2013 [facility] Activated 31.3 24.0-36.[address] [place] [address] Thrombo Time [phone] Laboratory 04/24/2013 [facility] Inr 1.08 High 0.85-1.06 40 test finding [address] [place], [place] [address] [phone] Laboratory 04/21/2013 [facility] Inr 1.24 High 0.85-1.06 41 test finding [address] [place] [address] [phone] Basic 04/08/2013 [facility] Sodium 140 mmol/L 133-[address] [place] [address] [phone] Potassium 3.7 mmol/L 3.5-5.0 Chloride 104 mmol/L 101-111 Co2 Carbon Dioxide 32.0 mmol/L 22-32 Anion Gap 4.0 mmol/L 2-11 Glucose 108 mg/dL High 70-100 Blood Urea Nitrogen 15 mg/dL 6-24 Creatinine 0.80 mg/dL 0.50-1.40 BUN/Creatinine Ratio 18.8 8-20 Calcium 9.0 mg/dL 8.1-9.9 Egfr Non- 94.0 >60 Egfr 120.9 >60 42 Type & Screen 04/08/2013 [facility] Patient Blood Type A Negative [address] [place] [address] [phone] Antibody Screen NEGATIVE Laboratory test 04/08/2013 [facility] Activated 30.4 24.0- 36.1 [address] [place] [place] [address] Thrombo Time [phone] Inr/Protime 04/08/2013 [facility] Inr 0.91 0.85-1.[address] [place], [place] [address] [phone] CBC No Diff 04/08/2013 [facility] White Blood 6.3 10^3/uL 4.8 -10.[address] [place] [address] [phone] Red Blood Count 4.37 10^6/uL 4.0-5.4 Hemoglobin 13.0 g/dL Low 14.0-18.0 Hematocrit 40 % Low 42-52 Mean Corpuscular Volume 92 fL 80-94 Mean Corpuscular Hemoglobin 30 pg 27-31 Mean Corpuscular HGB Conc 33 g/dL 31-36 Red Cell Distribution Width 13 % 10.5-15 Platelet Count 180 10^3/uL 150-450 Mean Platelet Volume 9 um3 7.4-10.4 Urine Microscopic 04/08/2013 [facility] Urine WBC 1+ (<3 None Seen [address] /hpf) [place] [address] [phone] Urine RBC 1+ (<3 /hpf) None Seen Bacteria Urine None Seen None Seen Urinalysis 04/08/2013 [facility] Urine Color Yellow [address] [place] [address] [phone] Urine Appearance Clear Urine Specific Cook 1.020 1.010-1.030 Urine Esterase Trace Abnormal Negative Urine Nitrate Negative Negative Urine Urobilinogen Negative E.U./dL Negative Urine Protein Negative mg/dL Negative Urine pH 6.5 5-9 Urine Blood Negative Negative Urine Ketones Negative mg/dL Negative Urine Bilirubin Negative Negative Urine Glucose Negative mg/dL Negative Laboratory test 01/21/2013 [facility] Fluid Crystals None Seen [address] [place] [address] [phone] Body Fluid C&S 01/21/2013 [facility] Body Fluid Cult (SEE NOTE) [address] [place] [address] [phone] Body Fluid Cell 01/21/2013 [facility] Body Fluid Synovial Fluid Count [address] [place] [address] [phone] Body Fluid Appearance Cloudy Body Fluid Color Yellow Body Fluid Volume 1.5 mL Body Fluid WBC 67 Body Fluid RBC 2770 Body Fluid Polys 21 Body Fluid Lymph 54 Body Fluid [place] 22 Body Fluid Eosinophil 2 Body Fluid Total Cells Counted 100 Fluid Reviewed By MD (SEE NOTE) 47 Laboratory test 01/07/2013 [facility] C Reactive < 0.5 mg/dL Less than finding [address] Protein 0.5 [place] [address] [phone] CBC Auto Diff 01/07/2013 [facility] White Blood 5.6 10^3/uL 4.8-10.[address] [place] [address] [phone] Red Blood Count 4.30 10^6/uL 4.0-5.4 Hemoglobin [...] Red Blood Cells % 0 Laboratory test 01/07/2013 [facility] Erythrocyte Sed 18 mm/Hr 0-[address] [place] [address] [phone] CBC With Manual 05/02/2012 [facility] White Blood 9.7 4.8- 10.[address] Count 10^3/[place] [address] [phone] Red Blood Count 4.11 10^6/uL 4.0-5.4 Hemoglobin [...] Morphology Normal Normal Basic Metabolic Panel 05/02/2012 [facility] Sodium 138 mmol/L 133-[address] [place] [address] [phone] Potassium 3.3 mmol/L Low 3.5-5.0 Chloride 101 mmol/L 101-111 Co2 Carbon Dioxide 32.0 mmol/L 22-32 Anion Gap 5.0 mmol/L 2-11 Glucose 119 mg/dL High 70-100 Blood Urea Nitrogen 15 mg/dL 6-24 Creatinine 0.80 mg/dL 0.50-1.40 BUN/Creatinine Ratio 18.8 8-20 Calcium 8.4 mg/dL 8.1-9.9 Egfr Non- 94.2 >60 Egfr 121.2 >60 48 Laboratory test 05/02/2012 [facility] Creatine Kinase 110 U/L 0-[address] [place] [address] [phone] Comp Metabolic 03/23/2012 [facility] Sodium 138 133-[address] mmol/[place] [address] [phone] Potassium 3.4 mmol/L Low 3.5-5.0 Chloride 104 [...] 1.1 1-3 Total Bilirubin 0.5 mg/dL 0.1-1.0 49 Alkaline Phosphatase 56 U/L 30-110 Alt 18 U/L 14-54 Ast 22 U/L 12-42 Egfr Non- 94.2 >60 Egfr 121.2 >60 50 Laboratory test 03/23/2012 [facility] Uric Acid 3.9 mg/dL 2.6 -7.[address] [place] [address] [phone] CBC Auto Diff 03/23/2012 [facility] White Blood 7.1 10^3/uL 4.8-10.[address] [place] [address] [phone] Red Blood Count 3.86 10^6/uL Low 4.0-5.4 [...] Red Blood Cells % 0 Laboratory test 03/23/2012 [facility] Erythrocyte Sed 41 MM/HR High 0-[address] [place] [address] [phone] Basic Metabolic 01/24/2012 [facility] Sodium 137 135-[address] mmol/[place] [address] [phone] Potassium 4.2 mmol/L 3.5-5.0 Chloride 103 mmol/L 101-111 Co2 (Carbon Dioxide) 29.0 mmol/L 22-32 Anion Gap 5.0 mmol/L 2-11 51 Glucose 84 mg/dL 70-100 BUN 20 mg/dL 6-24 Creatinine 0.8 mg/dL 0.50-1.40 One Over Creatinine 1.25 BUN/Creatinine Ratio 25.0 High 8-20 Calcium 9.0 mg/dL 8.1-9.9 eGFR Non- 94.2 > 60 eGFR 121.2 > 60 52 Laboratory test 01/24/2012 [facility] TSH 1.02 MIU/ML 0.34- 5.[address] [place] [address] [phone] Laboratory test 01/24/2012 [facility] Iron Total 63 g/dL 45 -[address] [place] [address] [phone] Ferritin 92 NG/ML 24-336 Vitamin B12 369 pg/mL 180-914 Folic Acid > 25.8 NG/ML See Below 53 CBC Auto Diff 01/24/2012 [facility] White Blood 6.3 CUMM 4.8- 10.[address] [place] [address] [phone] Red Cell Count 3.83 CUMM Low 4.6-6.2 [...] 0.1 0-0.6 Abs Basophils 0 0-0.2 Surgical 12/13/2011 [facility] Surgical [address] Pathology <SEE NOTE> [place] [address] [phone] Laboratory 10/19/2011 [facility] Erythrocyte Sed 13 MM/HR 0- [address] [place] 0 [place] [address] [phone] C Reactive Protein < 0.5 mg/dL Less Than 0.5 TSH 0.82 MIU/ML 0.34-5.60 Comp Metabolic Panel 10/19/2011 [facility] Sodium 140 mmol/L 135-[address] [place] [address] [phone] Potassium 3.8 mmol/L 3.5-5.0 Chloride 105 mmol/L 101-111 Co2 (Carbon Dioxide) 31.0 mmol/L 22-32 Anion Gap 4.0 mmol/L 2-11 55 Glucose 100 mg/dL 70-100 BUN 20 mg/dL 6-24 Creatinine 0.9 mg/dL 0.50-1.40 One Over Creatinine 1.11 BUN/Creatinine Ratio 22.2 High 8-20 Calcium 8.9 mg/dL 8.1-9.9 Total Protein 6.5 GM/DL 6.2-8.1 Albumin 3.9 GM/DL 3.2-5.2 Globulin 2.6 GM/DL 2-4 Albumin/Globulin Ratio 1.5 1-3 Bilirubin Total 0.6 mg/dL 0.4-1.5 56 Alkaline Phosphatase 54 U/L 39-117 Alt (SGPT) 24 U/L 17-63 Ast (Sgot) 25 U/L 12-42 eGFR Non- 82.3 > 60 eGFR 105.8 > 60 57 CBC Auto Diff 10/19/2011 [facility] White Blood 6.6 CUMM 4.8- 10.[address] [place] [address] [phone] Red Cell Count 4.25 CUMM Low 4.6-6.2 [...] Eosinophils 0.1 0-0.6 Abs Basophils 0 0-0.2 58 Laboratory test 10/03/2011 [facility] Stool [address] Culture <SEE NOTE> [place] [address] [phone] Comp Metabolic 10/02/2011 [facility] Sodium 138 mmol/L 135- Panel [address] [place] [address] [phone] Potassium 3.4 mmol/L Low 3.5-5.0 Chloride 100 mmol/L Low 101-111 Co2 (Carbon Dioxide) 29.0 mmol/L 22-32 Anion Gap 9.0 mmol/L 2-11 60 Glucose 70 mg/dL 70-100 BUN 16 mg/dL 6-24 Creatinine 1.0 mg/dL 0.50-1.40 One Over Creatinine 1.00 BUN/Creatinine Ratio 16.0 8-20 Calcium 8.9 mg/dL 8.1-9.9 Total Protein 6.5 GM/DL 6.2-8.1 Albumin 4.0 GM/DL 3.2-5.2 Globulin 2.5 GM/DL 2-4 Albumin/Globulin Ratio 1.6 1-3 Bilirubin Total 0.5 mg/dL 0.4-1.5 61 Alkaline Phosphatase 59 U/L 39-117 Alt (SGPT) 24 U/L 17-63 Ast (Sgot) 28 U/L 12-42 eGFR Non- 72.8 > 60 eGFR 93.7 > 60 62 CBC Auto Diff 10/02/2011 [facility] White Blood 6.1 CUMM 4.8- 10.[address] [place] [address] [phone] Red Cell Count 4.34 CUMM Low 4.6-6.2 Hemoglobin 13.9 g/dL Low 14.0-18.0 Hematocrit 40 % Low 42-52 Mean Corpuscular Volume 93 um3 80-94 Mean Corpuscular Hemoglob 32 pg High 27-31 Mean Corpuscular HGB Cone 34 g/dL 32-36 Redcell Distribution WDTH 13 % 10.5-15 Platelet Count 190 CUMM 150-450 Mean Platelet Volume 9.5 um3 7.4-10.4 63 Laboratory test 10/02/2011 [facility] Erythrocyte Sed 10 MM/HR 0-[address] [place] [address] [phone] Manual 10/02/2011 [facility] Polysegmented 71 % 38-[address] [place] [address] [phone] Band Neutrophil 1 % 0-8 Lymphocyte 21 % Low 25-47 Monocyte 7 % 0-13 Absolute Neutrophil Count 4.30 RBC Morphology NORMAL Laboratory test 01/04/2011 [facility] Hemoglobin A1c 5.7 5-7 finding Laboratory test 12/27/2010 [facility] Thyroxine 5.9 g/dL 5- [address] [place] [address] [phone] CBC W/Electronic 12/27/2010 [facility] White Blood Count 6.5 CUMM 4.8-10.[address] [place] [address] [phone] Red Cell Count 4.30 CUMM Low 4.6-6.2 [...] Abs Basophils 0 0-0.2 Lipid Panel 12/27/2010 [facility] Cholesterol 165 mg/dL Less Than 200 [address] [place] [address] [phone] Triglyceride 96 mg/dL 40-200 High Density Lipoprotein 43 mg/dL 40-60 65 Cholesterol/HDL Ratio 3.84 AVERAGE 1-4.97 Low Density Lipoprotein 103 mg/dL High Less Than 100 66 CMP Panel 12/27/2010 [facility] Albumin 4.1 GM/DL 3.2-5.2 [address] [place] [address] [phone] Alt (SGPT) 19 U/L 17-63 Calcium 9.1 mg/dL 8.1-9.9 Co2 (Carbon Dioxide) 32.0 mmol/L 22-32 Chloride 101 mmol/L 101-111 Glucose 92 mg/dL 70-100 Alkaline Phosphatase 55 U/L 39-117 Potassium 3.8 mmol/L 3.5-5.0 Total Protein 6.7 GM/DL 6.2-8.1 Sodium 139 mmol/L 135-145 Ast (Sgot) 24 U/L 12-42 BUN 14 mg/dL 6-24 Anion Gap 6.0 mmol/L 2-11 67 Creatinine 0.80 mg/dL 0.50-1.40 One Over Creatinine 1.20 BUN/Creatinine Ratio 17.5 8-20 Globulin 2.6 GM/DL 2-4 Albumin/Globulin Ratio 1.6 1-3 Bilirubin Total 0.8 mg/dL 0.4-1.5 68 eGFR Non- 94.5 > 60 eGFR 121.5 > [address] [facility] 12/27/2010 [facility] TSH 0.63 MIU/ML 0.34- 5.[address] [place] [address] [phone] Laboratory test 07/06/2010 [facility] Hemoglobin A1c 6.3 5-7 finding Lipid Profile 04/26/2010 [facility] Triglyceride 83 mg/dL 40- 200 (Trig/Chol/HDL) [address] [place] [address] [phone] Cholesterol 156 mg/dL Less Than 200 70 High Density Lipoprotein 41 mg/dL 40-60 71 Cholesterol/HDL Ratio 3.80 AVERAGE 1-4.97 Low Density Lipoprotein 98 mg/dL Less Than 100 72 Laboratory test finding 04/26/2010 [facility] Ast (Sgot) 25 U/L 12-[address] [place] [address] [phone] Alt (SGPT) 28 U/L 17-63 Basic Metabolic Panel 04/26/2010 [facility] Sodium 140 mmol/L 135-[address] [place] [address] [phone] Potassium 3.8 mmol/L 3.5-5.0 Chloride 103 mmol/L 101-111 Co2 (Carbon Dioxide) 32.0 mmol/L 22-32 Anion Gap 5.0 mmol/L 2-11 73 Glucose 92 mg/dL 70-100 74 BUN 14 mg/dL 6-24 Creatinine 0.90 mg/dL 0.50-1.40 One Over Creatinine 1.10 BUN/Creatinine Ratio 15.6 8-20 Calcium 9.0 mg/dL 8.1-9.9 eGFR Non- 87.9 > 60 eGFR 106.4 > 60 75 Laboratory test 04/26/2010 [facility] Hemoglobin A1c 6.3 % High Less Than [address] 6.0 [place] [address] [phone] Laboratory test 04/13/2010 [facility] PSA,Diagnostic 1.48 0- [address] NG/[place] [address] [phone] [facility] 02/11/2010 [facility] TSH 1.55 0.34-5.[address] MIU/[place] [address] [phone] Comp Metabolic 02/11/2010 [facility] Sodium 143 135-[address] mmol/[place] [address] [phone] Potassium 3.8 mmol/L 3.5-5.0 Chloride 105 mmol/L 101-111 Co2 (Carbon Dioxide) 30.0 mmol/L 22-32 Anion Gap 8.0 mmol/L 2-11 78 Glucose 115 mg/dL High 70-100 79 BUN 13 mg/dL 6-24 Creatinine 0.90 mg/dL 0.50-1.40 One Over Creatinine 1.10 BUN/Creatinine Ratio 14.4 8-20 Calcium 8.8 mg/dL 8.1-9.9 Total Protein 6.9 GM/DL 6.2-8.1 Albumin 4.1 GM/DL 3.2-5.2 Globulin 2.8 GM/DL 2-4 Albumin/Globulin Ratio 1.5 1-3 Bilirubin Total 0.7 mg/dL 0.4-1.5 80 Alkaline Phosphatase 54 U/L 39-117 Alt (SGPT) 52 U/L 17-63 Ast (Sgot) 39 U/L 12-42 eGFR Non- 87.9 > 60 eGFR 106.4 > 60 81 Lipid Profile 02/11/2010 [facility] Triglyceride 203 mg/dL High 40-200 (Trig/Chol/HDL) [address] [place] [address] [phone] Cholesterol 233 mg/dL High Less Than 200 82 High Density Lipoprotein 42 mg/dL 40-60 83 Cholesterol/HDL Ratio 5.55 AVERAGE High 1-4.97 Low Density Lipoprotein 150 mg/dL High Less Than 100 84 CBC With 02/11/2010 [facility] White Blood 6.9 CUMM 4.8-10.8 Electronic Diff [address] [place] [address] [phone] Red Cell Count 4.59 CUMM Low 4.6-6.2 [...] 0.2 0-0.6 Abs Basophils 0 0-0.2 Surgical 06/08/2009 [facility] Surgical [address] Pathology <SEE NOTE> [place] [address] [phone] Laboratory 04/14/2009 [facility] PSA,Diagnosti 1.70 NG/ML 0- 4 86 test finding [address] [place] [address] [phone] CBC With 04/01/2008 [facility] White Blood 5.3 CUMM 4.8- [address] Count 10.8 [place] [address] [phone] Red Cell Count 4.68 CUMM 4.6-6.2 Hemoglobin 14.7 g/dL 14.0-18.0 Hematocrit 41 % Low 42-52 Mean Corpuscular Volume 88 um3 80-94 Mean Corpuscular Hemoglob 31 pg 27-31 Mean Corpuscular HGB Cone 36 g/dL 32-36 Redcell Distribution WDTH 13 % 10.5-15 Platelet Count 186 CUMM 150-450 Mean Platelet Volume 8.0 um3 7.4-10.4 Gran % 50.4 % 38-83 Lymph % 36.0 % 20-45 Mononuclear % 11.2 % High 1-9 Eosinophil % 1.9 % 0-6 Basophil % 0.5 % 0-2 Abs Lymphs 1.9 1.0-4.8 Abs Mononuclear 0.6 0-0.8 Absolute Neutrophil Count 2.7 1.5-7.7 Abs Eosinophils 0.1 0-0.6 Abs Basophils 0 0-0.2 Comp Metabolic Panel 04/01/2008 [facility] Sodium 141 mmol/L 135-[address] [place] [address] [phone] Potassium 3.3 mmol/L Low 3.5-5.0 Chloride 106 mmol/L 101-111 Co2 (Carbon Dioxide) 31.0 mmol/L 22-32 Anion Gap 4.0 mmol/L 2-11 88 Glucose 104 mg/dL High 70-100 89 BUN 15 mg/dL 6-24 Creatinine 0.82 mg/dL 0.50-1.40 One Over Creatinine 1.20 BUN/Creatinine Ratio 18.3 8-20 Calcium 9.0 mg/dL 8.1-9.9 90 Total Protein 6.9 GM/DL 6.2-8.1 Albumin 3.8 GM/DL 3.2-5.2 Globulin 3.1 GM/DL 2-4 Albumin/Globulin Ratio 1.2 1-3 Bilirubin Total 0.6 mg/dL 0.4-1.5 Alkaline Phosphatase 67 U/L 39-117 Alt (SGPT) 47 U/L 17-63 Ast (Sgot) 34 U/L 12-42 Lipid Profile 04/01/2008 [facility] Triglyceride 295 mg/dL High 40-200 (Trig/Chol/HDL) [address] [place] [address] [phone] Cholesterol 165 mg/dL Less Than 200 91 High Density Lipoprotein 33 mg/dL Low 40-60 92 Cholesterol/HDL Ratio 5.00 AVERAGE High 1-4.97 Low Density Lipoprotein 73 mg/dL Less Than 100 93 Thyroxine Free 04/01/2008 [facility] Free Thyroxine 0.86 NG/ML 0.61-1.[address] [place] [address] [phone] Laboratory test 04/01/2008 [facility] TSH 0.93 0.34-5.[address] MIU/[place] [address] [phone] PSA Screening 1.42 NG/ML 0-4 95 Comp Metabolic 04/04/2007 [facility] One Over Creatinine 0.90 [address] [place] [address] [phone] Anion Gap 6.0 mmol/L 2-11 97 Albumin/Globulin Ratio 1.2 1-3 Albumin 3.8 GM/DL 3.2-5.2 Alkaline Phosphatase 64 U/L 39-117 Alt (SGPT) 31 U/L 17-63 Ast (Sgot) 27 U/L 12-42 BUN 16 mg/dL 6-24 Calcium 8.9 mg/dL 8.7-10.2 Chloride 102 mmol/L 101-111 Co2 (Carbon Dioxide) 33.0 mmol/L High 22-32 Globulin 3.1 GM/DL 2-4 Glucose 105 mg/dL 70-105 Potassium 3.6 mmol/L 3.5-5.0 Sodium 141 mmol/L 135-145 Bilirubin Total 0.6 mg/dL 0.4-1.5 Total Protein 6.9 GM/DL 6.2-8.1 BUN/Creatinine Ratio 14.5 8-20 Creatinine 1.1 mg/dL 0.5-1.4 Lipid Profile 04/04/2007 [facility] Cholesterol/HDL 4.81 1- 4.97 (Trig/Chol/HDL) [address] [place] [address] [phone] Cholesterol 202 mg/dL High Less Than 200 98 Triglyceride 218 mg/dL High 40-200 High Density Lipoprotein 42 mg/dL 40-60 Low Density Lipoprotein 116 mg/dL High Less Than 100 99 CBC W/ Electronic 04/04/2007 [facility] White Blood 7.2 CUMM 4.8-10.[address] Count [place], [place] [id number] [phone] Abs Basophils 0 0-0.2 Abs Eosinophils 0.3 [...] 4.6-6.2 Redcell Distribution WDTH 13 % 10.5-15 Laboratory test 04/04/2007 [facility] PSA Screening 1.58 NG/ML 0-4 [address] [place] [address] [phone] TSH 1.33 MIU/ML 0.34-5.60 1 Therapeutic target for the treatment of diabetes mellitus patients is <7% HBA1C, and in selective patients <6.0%. Please refer to [employer] diabetic care guidelines for further information. 2 Therapeutic target for the treatment of diabetes mellitus patients is <7% HBA1C, and in selective patients <6.0%. Please refer to [employer] diabetic care guidelines for further information. 3 [facility] Severe Sepsis and Septic Shock Management Bundle Measure requires all lactic acids initially measuring >2.0 mmol/L be repeated. 4 Because ethnic data is not always readily [...] 15-29 5 Kidney failure <15 (or dialysis) 5 Therapeutic target for the treatment of diabetes mellitus patients is <7% HBA1C, and in selective patients <6.0%. Please refer to [employer] diabetic care guidelines for further information. 6 SEE RESULT BELOW Name: HUMA BLUE : [address]: Belen Sousa MD Acct: [id number] Unit: [id number] AGE: 82 Location: [facility] [place] 440- Re12/09/17 Dis: 12/10/17 SEX: M Status: DIS IN SPEC: [id number] ANJUM: 12/09/17-[address]: Huma Holcomb MD REQ: [id number] RECD: 12/09/17 STATUS: DIEUDONNE FERNANDEZ DR: Chriss Romero MD _ SOURCE: URINE SPDESC: ORDERED: Urine Culture Procedure Result Reported Site Urine Culture Final 12/11/17- 0815 ML No Growth (<1,000 CFU/mL) * - Main Lab . END OF REPORT DEPARTMENT OF PATHOLOGY, [address] [place] [address] Jeb Reyes M.D. Director [facility]Y # [id number] PATIENT WILL BRING BACK PLAIN CONTAINER ANOTHER DAY STOOL KIT ONLY 8 SEE RESULT BELOW Name: HUMA BLUE : [address]: Balwinder Romero MD Acct: [id number] Unit: [id number] AGE: 82 Location: [facility] Re11/21/17 SEX: M Status: REG REF SPEC: [id number] ANJUM: 11/21/17 [facility] DR: Chriss Romero MD REQ: [id number] RECD: 11/21/17 STATUS: COMP _ SOURCE: STOOL SPDESC: ORDERED: Stool Culture, O P: Giar/Crypt COMMENTS: PATIENT WILL BRING BACK PLAIN CONTAINER ANOTHER DAY STOOL KIT ONLY Procedure Result Reported Site Stool Culture Final 11/23/17- 0957 ML Result No enteric pathogens isolated Testing for Salmonella, Shigella, Aeromonas, Plesiomonas, Yersinia and Campylobacter are included in a Stool Culture. Vibrio spp not routinely tested for in a stool culture. If testing is desired, please request specifically when placing test order. Sensitivities not routinely performed on stool isolates, as antibiotics may prolong the carriage rate of bacteria. Please contact the microbiology lab if sensitivities are required. Shiga Toxin 1 2 Final 11/22/17- 1138 ML Organism 1 Negative Shiga Toxin 1 2 Immunochromatographic Assay O P: Giardia/Cryptospor Screen Final 11/21/17- 1450 ML Organism 1 Neg Cryptosporidium/Giardia CONTINUED ON NEXT PAGE DEPARTMENT OF PATHOLOGY, [address] [place] [address] Jeb Reyes M.D. Director ALY # [id number] Patient: HUMA BLUE [id number] (Continued) Specimen: [id number] Collected: 11/21/17 Received: 11/21/17-1055 (Continued) Procedure Result Reported Site O P: Giardia/Cryptospor Screen Final (continued) 11/21/17- 1450 Giardia and cryptosporidium antigen testing performed by enzyme immunoassay. If patient is immunocompromised or has traveled to or is from a developing country, a full ova and parasite exam with microscopic (OPMIC) is recommended. All samples will be held one month in case full ova and parasite testing is requested. Contact the Microbiology Department at [phone]. TEST LIMITATIONS: As with all diagnostic procedures, the results obtained should be used in conjunction with other clinical information available the physician, including confirmation by another method. Negative results can occur in samples containing antigen below lower limits of detection of the assay. One negative specimen does not rule out the possibility of a parasitic infection. To improve detection it is recommended that three specimens be collected on separate days over a period of not more than seven days. The use of colonic washes, aspirates or other diluted sample types has not been established and could affect the performance of the assay. Stool samples contaminated with an oily or particulate base (eg. Barium, mineral oil etc.) could interfere with the test and are not recommended. * ML - Main Lab . END OF REPORT DEPARTMENT OF PATHOLOGY, [address] [place] [address] Jeb Reyes M.D. Director [facility] # [id number] SEE RESULT BELOW Name: HUMA BLUE : [address]: Balwinder Romero MD Acct: [id number] Unit: [id number] AGE: 82 Location: [facility] Re11/21/17 SEX: M Status: REG REF SPEC: [id number] ANJUM: 11/21/17-1336 [facility] DR: Chriss Romero MD REQ: [id number] RECD: 11/22/17 STATUS: COMP _ SOURCE: STOOL SPDESC: ORDERED: C. diff PCR COMMENTS: Unable to perform Shiga Toxin testing. Specimen collection requirements were not met. Stool for Shiga Toxin testing must be received by the laboratory within 2 hours of collection or placed in Valdez-Ellis transport medium. *please interpret stool culture result with caution* Stool specimen was not placed into appropriate transport medium within recommended time-frame. Testing may be less Sensitive. Procedure Result Reported Site Stool Specimen Description Final 11/22/17- 1053 ML Stool Color Brown Stool Form Semi-formed Stool Consistency Soft C. difficile PCR Final 11/22/17- 1116 ML Organism 1 027 Presumptive NEGATIVE Organism 2 Toxigenic C.diff NEGATIVE * ML - [facility] . END OF REPORT DEPARTMENT OF PATHOLOGY, [address] [place] [address] Jeb Reyes M.D. Director [facility] # [id number] Interpretation: Abnormal (>120.0 mcg/g) REFERENCE VALUE <=50.0 (Normal) Test Performed by: [facility] [address] [address] 11 SEE RESULT BELOW Name: HUMA BLUE : [address]: Balwinder Romero MD Acct: [id number] Unit: [id number] AGE: 82 Location: [facility] Re11/21/17 SEX: M Status: REG REF SPEC: [id number] ANJUM: 11/21/[address]: Chriss Romero MD REQ: [id number] RECD: 11/21/17 STATUS: RES _ SOURCE: STOOL SPDESC: ORDERED: Stool Culture, O P: Giar/Crypt COMMENTS: PATIENT WILL BRING BACK PLAIN CONTAINER ANOTHER DAY STOOL KIT ONLY Procedure Result Reported Site Stool Culture PENDING Shiga Toxin 1 2 PENDING O P: Giardia/Cryptospor Screen Final 11/21/17- 1450 ML Organism 1 Neg Cryptosporidium/Giardia Giardia and cryptosporidium antigen testing performed by enzyme immunoassay. If patient is immunocompromised or has traveled to or is from a developing country, a full ova and parasite exam with microscopic (OPMIC) is recommended. All samples will be held one month in case full ova and parasite testing is requested. Contact the Microbiology Department at [phone]. TEST LIMITATIONS: As with all diagnostic procedures, the results obtained should be used in conjunction with other clinical information available the physician, including confirmation by another method. Negative results can occur in samples containing antigen below lower limits of detection of the assay. One negative specimen does not rule out the possibility of a parasitic infection. To improve detection it is recommended that three specimens be collected on separate days over a period of not more than seven CONTINUED ON NEXT PAGE DEPARTMENT OF PATHOLOGY, [address] [place] [address] Jeb Reyes M.D. Director [facility] # [id number] Patient: HUMA BLUE [id number] (Continued) Specimen: [id number] Collected: 11/21/17-799 Received: 11/21/17-1055 (Continued) Procedure Result Reported Site O P: Giardia/Cryptospor Screen Final (continued) 11/21/17- 1450 days. The use of colonic washes, aspirates or other diluted sample types has not been established and could affect the performance of the assay. Stool samples contaminated with an oily or particulate base (eg. Barium, mineral oil etc.) could interfere with the test and are not recommended. * ML - Main Lab . END OF REPORT DEPARTMENT OF PATHOLOGY, [address] [place] [address] Jeb Reyes M.D. Director [facility] # [id number] 12 Therapeutic target for the treatment of diabetes mellitus patients is <7% HBA1C, and in selective patients <6.0%. Please refer to [employer] diabetic care guidelines for further information. 13 [facility] Severe Sepsis and Septic Shock Management Bundle Measure requires all lactic acids initially measuring >2.0 mmol/L be repeated. 14 Because ethnic data is not always readily [...] 15-29 5 Kidney failure <15 (or dialysis) 15 Normal Range 180 to 914 Indeterminate Range 145 to 180 Deficient Range <145 16 FASTING 10 HOUR 17 Because ethnic data is not always [...] 5 Kidney failure <15 (or dialysis) 18 Desirable: <150 Borderline High: 150-199 High: 200-499 Very High: >500 19 Desirable: <200 Borderline High: 200-239 High: >239 20 Low: <40 Desirable: 40-60 High: >60 21 Desirable: <100 Near Optimal: 100-129 Borderline High: 130-159 High: 160-189 Very High: >189 22 REFERENCE VALUE (Peripheral vein specimen) Na-deplete, upright: Mean: 5.9 Range: 2.9-10.8 Na-replete, upright: Mean: 1.0 Range: < or=0.6-3.0 ADDITIONAL INFORMATION Testing performed by Liquid Chromatography-Tandem Mass Spectrometry (LC-MS/MS). This test was developed and its performance characteristics determined by [facility] in a manner consistent with CLIA requirements. This test has not been cleared or approved by the U.S. Food and Drug Administration. Test Performed by: [facility] - [address] [address] 23 REFERENCE VALUE (Peripheral vein specimen) Na-deplete, upright: Mean: 5.9 Range: 2.9-10.8 Na-replete, upright: Mean: 1.0 Range: < or=0.6-3.0 ADDITIONAL INFORMATION Testing performed by Liquid Chromatography-Tandem Mass Spectrometry (LC-MS/MS). This test was developed and its performance characteristics determined by [facility] in a manner consistent with CLIA requirements. This test has not been cleared or approved by the U.S. Food and Drug Administration. Test Performed by: [facility] - [address] [address] 24 [facility] Severe Sepsis and Septic Shock Management Bundle Measure requires all lactic acids initially measuring >2.0 mmol/L be repeated. 25 Because ethnic data is not always [...] 5 Kidney failure <15 (or dialysis) 26 Desirable <150 Borderline high 150-199 High 200-499 Very High >500 27 Desirable <200 Borderline high 200-239 High >239 28 Low <40 Desirable: 40-60 High: >60 29 Desirable: <100 mg/dL Near Optimal: 100-129 mg/dL Borderline High: 130-159 mg/dL High: 160-189 mg/dL Very High: >189 mg/dL 30 Because ethnic data is not always [...] 5 Kidney failure <15 (or dialysis) 31 Desirable <150 Borderline high 150-199 High 200-499 Very High >500 32 Desirable <200 Borderline high 200-239 High >239 33 Low <40 Desirable: 40-60 High: >60 34 Desirable: <100 mg/dL Near Optimal: 100-129 mg/dL Borderline High: 130-159 mg/dL High: 160-189 mg/dL Very High: >189 mg/dL 35 Normal Range 180 to 914 Indeterminate Range 145 to 180 Deficient Range <145 36 Because ethnic data is not always [...] 5 Kidney failure <15 (or dialysis) 37 Because ethnic data is not always [...] 5 Kidney failure <15 (or dialysis) 38 Because ethnic data is not always [...] 5 Kidney failure <15 (or dialysis) 39 labs to be drawn between July 09 - 2013 40 Please note the change in the INR reference range effective 13. 41 Please note the change in the INR reference range effective 13. 42 Because ethnic data is not always readily [...] 15-29 5 Kidney failure <15 (or dialysis) 43 AA 04/16/13 44 Please note the change in the INR reference range effective 13. 45 LEFT KNEE Synovial (Joint) Fluid 46 RUN DATE: 01/25/13 [facility] LAB LIVE PAGE 1 RUN TIME: 1010 [address] [place], [place] [address] Specimen Inquiry Name: HUMA BLUE : [address]: Neymar Marrero MD Acct: [id number] Unit: [id number] AGE: 77 Location: [facility] Re01/21/13 SEX: M Status: REG REF SPEC: [id number] ANJUM: 01/21/[address]: Neymar Marrero MD REQ: [id number] RECD: 01/21/13 STATUS: COMP _ SOURCE: JOINT FLUI SPDESC:KNEE LEFT ORDERED: BF Marco/HERMELINDO COMMENTS: LEFT KNEE Procedure Result Verified Site Body Fluid Gram Stain Final 01/21/13- 1229 ML 1+ Polys No Organisms Seen Preparation By Direct Smear Body Fluid Culture Final 01/25/13- 1010 ML No Growth Day 4 END OF REPORT * ML=Testing performed at Main Lab DEPARTMENT OF PATHOLOGY, [address] [place] [address] Jeb eRyes M.D. Director [facility] Permit #[id number] 47 Slide and differential reviewed. No bacteria, blasts or other malignant cells seen. REVIEWED BY JEB REYES MD 48 Because ethnic data is not always [...] 5 Kidney failure <15 (or dialysis) 49 A metabolite of Naproxen, O-desmethylnaproxen, has been shown to interfere with the Jendrassik-Lindsay method for measuring total bilirubin. Samples from patients who have taken Naproxen have shown spurious elevation in total bilirubin levels. 50 Because ethnic data is not always readily [...] 15-29 5 Kidney failure <15 (or dialysis) 51 Anion gap measurement may be of limited value in the presence of any alkalosis, especially in a combined acid base disorder. . 52 Because ethnic data is not always readily [...] 15-29 5 Kidney failure <15 (or dialysis) 53 Please note: New reference range, effective 05/25/11 NORMAL REFERENCE RANGE: GREATER THAN 4.1 NG/ML 54 ---- RUN DATE: 12/15/11 [facility] NMI LIVE PAGE 1 RUN TIME: 1323 Specimen Inquiry RUN USER: INTERFACE -- Name: HUMA BLUE Status: REG REF Re12/13/11 Age/Sex: 76/M Unit#: [id number] Location: [address] [place], [place] [address]B. : 37 -- Specimen: [id number] [facility] Spec Date:12/13/11 Dr: Clayton Damon MD Spec [...] polyp (see comment). -- DEPARTMENT OF PATHOLOGY, [address] [place] [address] [facility] Permit #[id number] Brissa Cummings M.D. Freelance Recruiter florentin -- -- RUN DATE: 12/15/11 [facility] NMI LIVE PAGE 2 RUN TIME: 1323 Specimen Inquiry RUN USER: INTERFACE -- Name: HUMA BLUE#: [id number] Status: REG REF Re12/13/11 Age/Sex: 76/M Unit#: [id number] Location: [facility] : 37 -- -- CONTINUED -- COMMENT Part 2 shows definitive evidence of lymphocytic colitis. 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 Part 3 (sigmoid nodule) shows colonic mucosa with again evidence of collagenous colitis and with hyperplastic change. Signed Electronically by: IONA DENISE 12/15/11 1323 -- -- DEPARTMENT OF PATHOLOGY, [address] [place] [address] [facility] Permit #[id number] Jeb Reyes M.D. Director Iona Denise M.D. Freelance Recruiter Dir florentin -- 55 Anion gap measurement may be of limited value in the presence of any alkalosis, especially in a combined acid base disorder. . 56 A metabolite of Naproxen, O-desmethylnaproxen, has been shown to interfere with the Jendrassik-Lindsay method for measuring total bilirubin. Samples from patients who have taken Naproxen have shown spurious elevation in total bilirubin levels. 57 Because ethnic data is not always readily [...] 15-29 5 Kidney failure <15 (or dialysis) 58 Lymphopenia % 59 RUN DATE: 10/10/11 [facility] NMI LIVE PAGE 1 RUN TIME: 1455 Specimen Inquiry RUN USER: INTERFACE [id number]: REG REF Re10/03/11 Age/Sex: 76/M Unit#: [id number] Location: [facility] : 37 SPEC #: [id number] ANJUM: 10/03/11 STATUS: COMP REQ #: [id number] RECD: 10/03/11 [facility] [address]: STOOL ENTR: 10/03/[address] [facility] [address]: [facility]: ORDERED: STOOL CULTURE, O P (FULL), O P: GLO/Eva KEATING DIFF AMP DNA, STL LACTOF QUERIES: MEDENT REQUISITION # [id number] ACT WKST: P 10/07/11 #1 Procedure Result [...] ANTIGEN NEGATIVE BY IMMUNOASSAY DEPARTMENT OF PATHOLOGY, [address] [place] [address] [facility] Permit #[id number] Brissa Cummings M.D. Plating Machine Operator RUN DATE: 10/10/11 [facility] NMI LIVE PAGE 2 RUN TIME: 1455 Specimen Inquiry RUN USER: INTERFACE Name: HUMA BLUE Status: REG REF Re10/03/11 Age/Sex: 76/M Unit#: [id number] Location: [facility] : 36 -- -- CONTINU ED Procedure [...] is requested. Contact the Microbiology Department at [phone]. TEST LIMITATIONS: As with all diagnostic procedures, [...] LACTOFERRIN POSITIVE BY IMMUNOASSAY DEPARTMENT OF PATHOLOGY, [address] [place] [address] [facility] Permit #[id number] Jeb Reyes M.D. Director Iona Denise M.D. Plating Machine Operator RUN DATE: 10/10/11 [facility] NMI LIVE PAGE 3 RUN TIME: 0783 Specimen Inquiry RUN USER: INTERFACE Name: HUMA BLUE Status: REG REF Re10/03/11 Age/Sex: 76/M Unit#: [id number] Location: [facility] : 36 -- -- CONTINU ED Procedure Result Verified Site FECAL LACTOFERRIN (STOOL WBC) Final (continued) 10/03/11 3357 TEST LIMITATIONS: Assay detects elevated levels of lactoferrin released from fecal leukocytes as a marker of intestinal inflammation. The test may not be appropriate in immunocompromised persons. Fecal samples from breast fed infants should not be used with this assay. [facility] Permit #[id number] [facility] [employer] [place] [address] DEPARTMENT OF PATHOLOGY, [facility] [employer] [place], [place] [address] [facility] Permit #[id number] Jeb Reyes M.D. Director Iona Denise M.D. Plating Machine Operator 60 Anion gap measurement may be of limited value in the presence of any alkalosis, especially in a combined acid base disorder. . 61 A metabolite of Naproxen, O-desmethylnaproxen, has been shown to interfere with the Jendrassik-Lindsay method for measuring total bilirubin. Samples from patients who have taken Naproxen have shown spurious elevation in total bilirubin levels. 62 Because ethnic data is not always readily [...] 15-29 5 Kidney failure <15 (or dialysis) 63 Imm. NE 1 64 CHOLESTEROL INTERPRETATION: Desirable: Less than 200 MG/DL Borderline-High Risk: 200-239 MG/DL High-Risk: 240 MG/DL and over 65 HDL INTERPRETATION: Undesirable: High Risk: Less than 40 MG/DL Desirable: Low Risk: Greater than 60 MG/DL 66 LDL INTERPRETATION: Low Risk Optimal Level: LDL Less than 100 MG/DL Near or Above Optimal: LDL 100-129 MG/DL Borderline High Risk: LDL 130-159 MG/DL High Risk: LDL 160-189 MG/DL Very High Risk: LDL Greater than 189 MG/DL 67 Anion gap measurement may be of limited value in the presence of any alkalosis, especially in a combined acid base disorder. . 68 A metabolite of Naproxen, O-desmethylnaproxen, has been shown to interfere with the Jendrassik-Lindsay method for measuring total bilirubin. Samples from patients who have taken Naproxen have shown spurious elevation in total bilirubin levels. 69 Because ethnic data is not always readily [...] 15-29 5 Kidney failure <15 (or dialysis) 70 CHOLESTEROL INTERPRETATION: Desirable: Less than 200 MG/DL Borderline-High Risk: 200-239 MG/DL High-Risk: 240 MG/DL and over 71 HDL INTERPRETATION: Undesirable: High Risk: Less than 40 MG/DL Desirable: Low Risk: Greater than 60 MG/DL 72 LDL INTERPRETATION: Low Risk Optimal Level: LDL Less than 100 MG/DL Near or Above Optimal: LDL 100-129 MG/DL Borderline High Risk: LDL 130-159 MG/DL High Risk: LDL 160-189 MG/DL Very High Risk: LDL Greater than 189 MG/DL 73 Anion gap measurement may be of limited value in the presence of any alkalosis, especially in a combined acid base disorder. . 74 Note change in reference range as of 01/23/08. The change was based on recommendations from the [employer]. 75 Because ethnic data is not always readily [...] 15-29 5 Kidney failure <15 (or dialysis) 76 THERAPEUTIC TARGET FOR THE TREATMENT OF DIABETES MELLITUS PATIENTS IS <7% HBA1C, AND IN SELECTIVE PATIENTS <6.0%. PLEASE REFER TO [employer] DIABETIC CARE GUIDELINES FOR FURTHER INFORMATION. 77 * SERUM LEVELS OF PSA MEASURED USING THE Candid io ACCESS HYBRITECH IMMUNOASSAY SHOULD NOT BE INTERPRETED ABSOLUTE EVIDENCE OF THE PRESENCE OR ABSENCE OF DISEASE. THE PSA VALUE SHOULD BE USED IN CONJUNCTION WITH OTHER PERTINENT CLINICAL DIAGNOSTIC PROCEDURES. 78 Anion gap measurement may be of limited value in the presence of any alkalosis, especially in a combined acid base disorder. . 79 Note change in reference range as of 01/23/08. The change was based on recommendations from the [employer]. 80 A metabolite of Naproxen, O-desmethylnaproxen, has been shown to interfere with the Jendrassik-Murphys method for measuring total bilirubin. Samples from patients who have taken Naproxen have shown spurious elevation in total bilirubin levels. 81 Because ethnic data is not always readily [...] 15-29 5 Kidney failure <15 (or dialysis) 82 CHOLESTEROL INTERPRETATION: Desirable: Less than 200 MG/DL Borderline-High Risk: 200-239 MG/DL High-Risk: 240 MG/DL and over 83 HDL INTERPRETATION: Undesirable: High Risk: Less than 40 MG/DL Desirable: Low Risk: Greater than 60 MG/DL 84 LDL INTERPRETATION: Low Risk Optimal Level: LDL Less than 100 MG/DL Near or Above Optimal: LDL 100-129 MG/DL Borderline High Risk: LDL 130-159 MG/DL High Risk: LDL 160-189 MG/DL Very High Risk: LDL Greater than 189 MG/DL 85 ---- RUN DATE: 06/10/09 [facility] NMI LIVE PAGE 1 RUN TIME: 1526 Specimen Inquiry RUN USER: INTERFACE -- Name: HUMA BLUE Status: REG REF Re06/08/09 Age/Sex: 73/M Unit#: [id number] Location: END : 36 -- Specimen: [id number] Spec Date: 06/08/[address]: Clayton liang MD Spec Type: SURGICAL P Received: 06/09/097871 Copies to: Yash Nevarez III, MD SPECIMEN [...] 06/10/09 1524 -- -- DEPARTMENT OF PATHOLOGY, [address] [place] [address] [facility] Permit #[id number] Jeb Reyes M.D. Director Iona Denise M.D. Freelance Recruiter Dir lerma -- 86 * SERUM LEVELS OF PSA MEASURED USING THE BAK[employer] ACCESS HYBRITECH IMMUNOASSAY SHOULD NOT BE INTERPRETED ABSOLUTE EVIDENCE OF THE PRESENCE OR ABSENCE OF DISEASE. THE PSA VALUE SHOULD BE USED IN CONJUNCTION WITH OTHER PERTINENT CLINICAL DIAGNOSTIC PROCEDURES. 87 PATIENT MAY HAVE RESULTS PER DOCTOR'S AUTHORIZATION. Questions regarding this report should be directed to your doctor. FASTING 88 Anion gap measurement may be of limited value in the presence of any alkalosis, especially in a combined acid base disorder. . 89 Note change in reference range as of 01/23/08. The change was based on recommendations from the [employer]. 90 Please note change in reference range effective 07 . 91 CHOLESTEROL INTERPRETATION: Desirable: Less than 200 MG/DL Borderline-High Risk: 200-239 MG/DL High-Risk: 240 MG/DL and over 92 HDL INTERPRETATION: Undesirable: High Risk: Less than 40 MG/DL Desirable: Low Risk: Greater than 60 MG/DL 93 LDL INTERPRETATION: Low Risk Optimal Level: LDL Less than 100 MG/DL Near or Above Optimal: LDL 100-129 MG/DL Borderline High Risk: LDL 130-159 MG/DL High Risk: LDL 160-189 MG/DL Very High Risk: LDL Greater than 189 MG/DL 94 PLEASE NOTE NEW REFERENCE RANGES. 95 * SERUM LEVELS OF PSA MEASURED USING THE BAKARI [employer] ACCESS HYBRITECH IMMUNOASSAY SHOULD NOT BE INTERPRETED ABSOLUTE EVIDENCE OF THE PRESENCE OR ABSENCE OF DISEASE. THE PSA VALUE SHOULD BE USED IN CONJUNCTION WITH OTHER PERTINENT CLINICAL DIAGNOSTIC PROCEDURES. 96 FASTING 97 Anion gap measurement may be of limited value in the presence of any alkalosis, especially in a combined acid base disorder. . 98 Classification: Borderline High . 99 CALCULATED LDL APPROXIMATES THE VALUE OF A DIRECT LDL MEASUREMENT. Classification: Near or above optimal . 100 * SERUM LEVELS OF PSA MEASURED USING THE BAKARI [employer] ACCESS HYBRITECH IMMUNOASSAY SHOULD NOT BE INTERPRETED ABSOLUTE EVIDENCE OF THE PRESENCE OR ABSENCE OF DISEASE. THE PSA VALUE SHOULD BE USED IN CONJUNCTION WITH OTHER PERTINENT CLINICAL DIAGNOSTIC PROCEDURES. Procedures Date Code Description Status 02/22/2018 12702 EKG Tracing & Interpretation Completed 12/09/2017 63861 ECHO Transthorasic Realtime 2D W Doppler & Color Flow Completed Hosp 02/14/2017 78780 Treadmill Interp/Report Only Completed 02/14/2017 26369 Stress Test Supervsn W/Out I/R Completed 02/06/2017 70974 EKG Tracing & Interpretation Completed 02/06/2017 48050 EKG Tracing & Interpretation Completed 01/25/2017 35047 ECHO Transthorasic Realtime 2D W Doppler & Color Flow Completed Hosp 12/27/2016 57143 Closed TX Phalanx finger/thumb shaft w/o manipulation Completed 09/01/2016 61032 ECHO Transthorasic Realtime 2D W Doppler & Color Flow Completed Hosp 08/22/2016 37644 EKG Tracing & Interpretation Completed 02/29/2016 92655 ECHO Transthoracic, Real-Time 2D With Doppler And Completed Color Flow 02/02/2016 56093 EKG Tracing & Interpretation Completed 10/11/2014 93779 ECHO Transthorasic Realtime 2D W Doppler & Color Flow Completed Hosp 06/05/2014 94192 EKG Tracing & Interpretation Completed 05/04/2014 96754 Xray Knee 3 Views Completed 05/04/2014 95386 Rad Exam; Knee, Ap&L Completed 02/06/2014 54164 Intravascular Blood Flow Velocity Completed 02/06/2014 73232 Left Heart Cath. Incl S/I Coronaries, Angio S/I V Gram Completed If Done 01/27/2014 86810 ECHO Transthoracic, Real-Time 2D With Doppler And Completed Color Flow 01/22/2014 70476 ECHO Stress Test Incl Perf Contiuous ekg Monitoring Completed W/Phys Superv 01/22/2014 97296 ECHO Stress Test Incl Perf Contiuous ekg Monitoring Completed W/Phys Superv 11/14/2013 98051 EKG Tracing & Interpretation Completed 10/06/2013 77339 Xray Knee 3 Views Completed 07/24/2013 56412 EKG Tracing & Interpretation Completed 07/19/2013 86783 EKG, Interpretation Only Completed 07/18/2013 01859 Percutaneous Transcatheter Placement Of Intracoronary Completed Stent 07/18/2013 34766 EKG, Interpretation Only Completed 07/18/2013 24159 Left Health Catheterization W/Inj For Left Completed Ventriculography,S&I 07/18/2013 69817 Cath PLMT&NJX L Ventriculog Img S&I Completed 07/18/2013 89920 Left Heart Cath. Incl S/I Coronaries, Angio S/I V Gram Completed If Done 07/18/2013 45496 Cardiac Cath,LT Hrtmincl Intraprocedural Ink LT Completed Ventricul Mammary 07/07/2013 16338457 Mammogram Completed 07/04/2013 51713 ECHO Transthorasic Realtime 2D W Doppler & Color Flow Completed Hosp 07/04/2013 89450 EKG Tracing & Interpretation Completed 07/02/2013 55885 Treadmill Interp/Report Only Completed 07/02/2013 67347 Stress Test Supervsn W/Out I/R Completed 06/23/2013 69135 EKG Tracing & Interpretation Completed 05/30/2013 29312 Rad Exam; Knee Comp Completed 04/24/2013 90043 Xray Knee 3 Views Completed 04/16/2013 75064 Revision TKA W Or W/O Allograft;Femoral & Entire Completed Tibial Component 04/16/2013 85943 Revision TKA W Or W/O Allograft;Femoral & Entire Completed Tibial Component 02/26/2013 89593 EKG Tracing & Interpretation Completed 01/29/2013 10395 ECHO Transthoracic, Real-Time 2D With Doppler And Completed Color Flow 01/21/2013 43179 Inject/Drain Joint/Bursa Major W/O US Completed 11/07/2012 39027 Xray Knee 3 Views Completed 11/07/2012 40951 Rad Exam; Knee, Ap&L Completed 08/14/2012 83444 TKR Total Knee Replacement Completed 08/14/2012 18474 TKR Total Knee Replacement Completed 06/08/2012 01609 Treadmill Interp/Report Only Completed 06/08/2012 13540 Stress Test Supervsn W/Out I/R Completed 06/08/2012 16477 EKG, Interpretation Only Completed 05/15/2012 70642 Arthroscopy,Knee,Meniscectomy Media & Lateral Completed 05/15/2012 95216 Arthroscopy,Knee,Meniscectomy Media & Lateral Completed 05/02/2012 19375 EKG Tracing & Interpretation Completed 04/16/2012 09063 Inject/Drain Joint/Bursa Major W/O US Completed 12/13/2011 68991661 Colonoscopy Completed 11/30/2011 44325 Polysomnography Sleep Staging 4+ Parameters W/Cpap Completed 09/28/2011 74251 Treadmill Interp/Report Only Completed 09/28/2011 74704 Stress Test Supervsn W/Out I/R Completed 09/06/2011 19645 Holter Monitoring 24 HR New Completed 09/04/2011 04407 ECHO Stress Test Incl Perf Contiuous ekg Monitoring Completed W/Phys Superv 07/21/2011 73018 EKG Tracing & Interpretation Completed 07/04/2011 63367 ECHO Transthorasic Realtime 2D W Doppler & Color Flow Completed Hosp 07/04/2011 09236 Pulse Wave/Continuous-Interp.RPT Completed 07/04/2011 14609 Color Flow Doppler/Interp & Reprt Completed 01/04/2011 08445 EKG Tracing & Interpretation Completed 03/25/2010 18739 Admin Of Inj Completed 12/15/2009 [id number] Diabetic Retinal Eye Exam Completed 06/08/2009 88860254 Colonoscopy Completed 08/05/2003 34925787 Colonoscopy Completed 03/31/1999 23572500 Colonoscopy Completed Encounters Type Date Location Provider Dx Diagnosis Office Visit 04/03/2018 [facility] Internal ROBERTH Crow R73.03 Prediabetes 2:20p Medicine - [address] K21.9 Gastro-esophageal reflux disease without esophagitis E78.5 Hyperlipidemia, unspecified 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 I10 Essential (primary) hypertension 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 Office 03/28/2018 [facility] Gastroenterology Mulu K21.9 Gastro-esophageal Visit 11:00a HERBER Blackwell reflux disease without esophagitis R13.10 Dysphagia, unspecified Z72.821 Inadequate sleep hygiene 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 Office Visit 02/22/2018 Sam Rodriguez G47.33 Obstructive sleep 10:40a Cardiology Brissa Hahn apnea (adult) (pediatric) I35.0 Nonrheumatic aortic (valve) stenosis I34.0 Nonrheumatic mitral (valve) insufficiency I25.10 Athscl heart disease of [place] coronary artery w/o ang pctrs Office Visit 02/08/2018 11:15a [facility] Javon Coleman, Z86.73 Prsnl hx of Services Of Katerina Brumfield TIA (TIA), and cereb infrc w/o resid deficits 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 other Hospitalists nontraumatic intracranial hemorrhage H53.8 Other visual disturbances I10 Essential (primary) hypertension E78.5 Hyperlipidemia, unspecified Office Visit 12/09/2017 Neurohospitalist Jamie H53.8 Other visual 7:00a Clinic Brissa Haas disturbances I10 Essential (primary) hypertension Z86.73 Prsnl hx of TIA (TIA), and cereb infrc w/o resid deficits Z79.02 group home (current) use of antithrombotics/antiplatelets Office Visit 12/09/2017 [facility] I69.298 Other sequelae of 3:03p artemio Zuniga M.D. 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 H53.8 Other visual 3:03p artemio Zuniga NP disturbances Hospitalists E78.5 Hyperlipidemia, unspecified E03.9 Hypothyroidism, unspecified F33.9 Major depressive disorder, recurrent, unspecified F41.9 Anxiety disorder, unspecified Office Visit 11/20/2017 2:40p [facility] Oscar Quinteros R19.7 DiarrheaAngelo M.D.,FACP unspecified [place] E03.9 Hypothyroidism, unspecified Office Visit 10/19/2017 2:20p [facility] Oscar Quinteros I10 Essential ( primary) Angelo Romero M.D.,FACP hypertension [address] F33.1 Major depressive disorder, recurrent, moderate E03.9 Hypothyroidism, unspecified Office Visit 09/19/2017 2:40p [facility] Internal Chriss Quinteros I10 Essential ( primary) Medicine Barbara Romero M.D.,FACP hypertension [address] F41.9 Anxiety disorder, unspecified Office Visit 03/21/2017 1:30p [facility] Aleksandr GDana I10 Essential ( primary) Medicine Of Katerina Simon M.D. 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 Office Visit 02/13/2017 2:33p [facility] Luis R07.9 Chest pain, Assoc,DEBORAH Ayala unspecified Hospitalists G47.33 Obstructive sleep apnea (adult) (pediatric) I25.110 Athscl heart disease of [place] cor art w unstable ang pctrs I10 Essential (primary) hypertension Office Visit 02/12/2017 2:30p [facility] Javon Coleman, Z86.73 Prsnl hx of Services Of [facility] Brissa TIA (TIA), and cereb infrc w/o resid deficits I10 Essential (primary) hypertension E78.5 Hyperlipidemia, unspecified Z79.02 group home (current) use of antithrombotics/antiplatelets Office Visit 02/07/2017 2:00p [facility] Internal Chriss Quinteros I15.0 Renovascular Medicine Barbara Romero M.D.,FACP hypertension [address] Z23 Encounter for immunization Office Visit 02/06/2017 1:30p [facility] DEBORAH Damon G45.8 Oth transient Of [facility] cerebral ischemic attacks and related synd I25.10 Athscl heart disease of [place] coronary artery w/o ang pctrs I10 Essential (primary) hypertension E78.5 Hyperlipidemia, unspecified Office Visit 01/31/2017 1:40p [facility] Internal Chriss Quinteros G45.8 Ot transient Medicine Barbara Romero M.D.,FACP cerebral Rd ischemic attacks and related synd I10 Essential (primary) hypertension E78.5 Hyperlipidemia, unspecified Office Visit 01/26/2017 12:56p [facility] Enoc Figueroa, G45.8 Ot transient Assoc,artemio Brumfield cerebral Hospitalists ischemic attacks and related synd E78.5 Hyperlipidemia, unspecified I25.10 Athscl heart disease of [place] coronary artery w/o ang pctrs I10 Essential (primary) hypertension Office 01/26/2017 Neurohospitalist Javon G45.9 Transient Visit 2:08p Clinic Brissa Coleman cerebral ischemic attack, unspecified I10 Essential (primary) hypertension 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 cerebral ischemic attack, unspecified I10 Essential (primary) hypertension Z79.02 group home (current) use of antithrombotics/antiplatelets Office Visit 01/25/2017 [facility] Roby I63.9 Cerebral 12:55p Assoc,artemio Shaver, N.P. 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10 Athscl heart disease of [place] coronary artery w/o ang pctrs G47.33 Obstructive sleep apnea (adult) (pediatric) Office Visit 08/22/2016 [facility] Qutaybeh S. I35.0 Nonrheumatic 3:00p Cardiology Brissa Hahn aortic (valve) stenosis I10 Essential (primary) hypertension I25.10 Athscl heart disease of [place] coronary artery w/o ang pctrs I34.0 Nonrheumatic mitral (valve) insufficiency Office Visit 02/02/2016 2:00p [facility] Qutaybeh S. I10 Essential Brissa Hahn (primary) hypertension I25.10 Athscl heart disease of [place] coronary artery w/o ang pctrs I34.0 Nonrheumatic mitral (valve) insufficiency I35.0 Nonrheumatic aortic (valve) stenosis Office Visit 08/16/2015 8:45a Orthopedic Temi Rivera, Z96.652 Presence of left Services Of Brissa artificial knee C.M.A. joint Office Visit 06/01/2015 10:45a [facility] Quirino Rodriguez I63.511 Cereb infrc d/t Services Of Katerina Giles M.D. unsp occls or stenos of right mid cereb art Office Visit 05/10/2015 10:45a Orthopedic Temi Rivera Z47.1 Aftercare Services Of Brissa following joint C.M.A. replacement surgery Z96.652 Presence of left artificial knee joint Office Visit 02/03/2015 Neurohospitalist Quirino Rodriguez 434.91 Occlusion 10:00a David Giles M.D. Cerebral Artery Unspec W/ Cerebral Infarc Office Visit 10/28/2014 Neurohospitalist Beck Annia, 434.91 Occlusion 9:47a Clinic Cerebral Artery Unspec W/ Cerebral Infarc Office Visit 10/11/2014 Neurohospitalist Quirino Rodriguez 434.91 Occlusion 3:00p Clinic Brissa Giles Cerebral Artery Unspec W/ Cerebral Infarc 435.9 TIA Ischemia Cerebral Transient Unspec 414.01 Coronary Atherosclerosis Solomon Office Visit 10/11/2014 7:08p [facility] Rosalee 434.91 Occlusion Assocartemio M.D. Cerebral Artery Hospitalists Unspec W/ Cerebral Infarc 401.9 Hypertension Unspec 244.9 Hypothyroidism Other Unspec Office Visit 10/10/2014 Neurohospitalist Quirino Rodriguez 434.91 Occlusion 2:34p Clinic Brissa Giles Cerebral Artery Unspec W/ Cerebral Infarc 435.9 TIA Ischemia Cerebral Transient Unspec Office Visit 10/10/2014 7:07p [facility] Loc 434.91 Occlusion Assoc,artemio Cordova M.D. Cerebral Artery Hospitalists Unspec W/ Cerebral Infarc 401.9 Hypertension Unspec 244.9 Hypothyroidism Other Unspec 272.4 Hyperlipidemia Other Unspec Office Visit 10/09/2014 7:06p [facility] Enocjill Figueroa, 434.91 Occlusion Assocartemio M.D. Cerebral Artery Hospitalists Unspec W/ Cerebral Infarc 401.9 Hypertension Unspec 244.9 Hypothyroidism Other Unspec 272.4 Hyperlipidemia Other Unspec Office Visit 06/05/2014 Sam Babin S. 414.01 Coronary 3:20p Cardiology Brissa Hahn Atherosclerosis Solomon V45.82 Percutaneous Transluminal Coronary Angioplas Postsurg Status 401.1 Hypertension Benign 424.0 Mitral Valve Disorder Office Visit 05/04/2014 11:30a Orthopedic Temi 715.96 Osteoarthrosis Services Of Brissa Rivera Unspec Genlzd Or C.M.A. Localized Lower Leg 719.46 Pain Joint Lower Leg Office Visit 02/10/2014 Sam Babin S. 414.01 Coronary 5:00p Cardiology Brissa Hahn Atherosclerosis Solomon V45.82 Percutaneous Transluminal Coronary Angioplas Postsurg Status 401.1 Hypertension Benign Office Visit 02/07/2014 Sam Babin S. 414.9 Ischemic Heart 10:03a Cardiology Brissa Hahn Disease Chronic Unspec Office Visit 02/06/2014 Sam Babin S. 794.39 Cardiovascular 3:22p Santa Hahn M.D. Study Other Abnormal 794.31 Electrocardiogram (ECG) (EKG) Abnormal 414.9 Ischemic Heart Disease Chronic Unspec Office Visit 01/28/2014 [facility] Olaf S. 414.01 Coronary 1:20p Santa Hahn M.D. Atherosclerosis Solomon 424.0 Mitral Valve Disorder 424.1 Aortic Valve Disorder V45.82 Percutaneous Transluminal Coronary Angioplas Postsurg Status Office Visit 01/22/2014 Sam Babin S. 414.01 Coronary 11:30a Santa Hahn M.D. Atherosclerosis Solomon 424.0 Mitral Valve Disorder 424.1 Aortic Valve Disorder V45.82 Percutaneous Transluminal Coronary Angioplas Postsurg Status Office Visit 11/14/2013 aSm Babin S. 414.01 Coronary 8:20a Santa aHhn M.D. Atherosclerosis Solomon 424.0 Mitral Valve Disorder 397.0 Tricuspid Valve Disease 424.1 Aortic Valve Disorder 401.0 Hypertension Malignant 272.2 Hyperlipidemia Mixed Office Visit 10/06/2013 10:00a Orthopedic Services Temi Rivera, 719.46 Pain Joint Of C.M.A. M.D. Lower Leg 715.96 Osteoarthrosis Unspec Genlzd Or Localized Lower Leg Office Visit 07/24/2013 Sam Babin S. 414.01 Coronary 3:40p Santa Hahn M.D. Atherosclerosis Solomon 424.0 Mitral Valve Disorder 397.0 Tricuspid Valve Disease 424.1 Aortic Valve Disorder 785.2 Murmur Cardiac Undiagnosed Office Visit 07/18/2013 11:30a [facility] Olaf S. 786.50 Pain Chest Brissa Hahn Unspec 786.05 Shortness Of Breath 794.39 Cardiovascular Study Other Abnormal Office Visit 07/04/2013 Sam Babin S. 414.01 Coronary 4:00p Santa Hahn M.D. Atherosclerosis Solomon 786.50 Pain Chest Unspec 424.0 Mitral Valve Disorder 397.0 Tricuspid Valve Disease 424.1 Aortic Valve Disorder Office Visit 07/02/2013 9:30a Sam Babin S. 786.50 Pain Chest Brissa Hahn Unspec 414.9 Ischemic Heart Disease Chronic Unspec Office Visit 06/23/2013 [facility] Olaf S. 414.01 Coronary 1:40p Cardiology Brissa Hahn Atherosclerosis Solomon 786.50 Pain Chest Unspec 424.0 Mitral Valve Disorder 397.0 Tricuspid Valve Disease 424.1 Aortic Valve Disorder 785.2 Murmur Cardiac Undiagnosed 782.3 Edema Office Visit 02/26/2013 [facility] Olaf S. 414.01 Coronary 3:00p Cardiology Brissa Hahn Atherosclerosis Solomon 412 Myocardial Infarction Old 424.1 Aortic Valve Disorder 424.0 Mitral Valve Disorder Office Visit 01/21/2013 9:15a Orthopedic Neymar Marrero, 996.78 Complication Due Services Of Brissa To Internal C.M.ADana Orthopedic Device Implant Other 715.96 Osteoarthrosis Unspec Genlzd Or Localized Lower Leg V43.65 Knee Replacement By Other Means 996.77 Complication Due To Internal Joint Prosthesis Office Visit 01/07/2013 Orthopedic Neymar Marrero, 996.78 Complication Due To 9:30a Services Of Oswald Brumfield Internal Orthopedic Device Implant Other Office Visit 08/17/2012 [facility] Patricia Tip, 276.8 Hypopotassemia 1:23p Assoc,pc N.P. Hospitalists 780.97 Altered Mental Status Office Visit 06/08/2012 11:51a [facility] Enoc Figueroa, 786.51 Pain Precordial Assoc,artemio Brumfield Hospitalists 401.9 Hypertension Unspec 272.2 Hyperlipidemia Mixed 285.9 Anemia Unspec Office Visit 06/07/2012 11:50a [facility] Cassidy 786.51 Pain Precordial Assoc,pc Micah Moeller Hospitalists 401.9 Hypertension Unspec 272.2 Hyperlipidemia Mixed 285.9 Anemia Unspec Office Visit 06/07/2012 [facility] Romietarun S. 414.01 Coronary 2:00p Cardiology Brissa Hahn Atherosclerosis Solomon 401.1 Hypertension Benign 434.11 Cerebral Embolism W/ Cerebral Infarc Office Visit 05/02/2012 8:30a [employer] Internal Shauna Saira, 836.0 Dislocation Knee Medicine - N.P. Tear Of Medial [place] Cartilage Or Meniscus Curren 786.03 Apnea 414.01 Coronary Atherosclerosis Solomon 401.1 Hypertension Benign 434.11 Cerebral Embolism W/ Cerebral Infarc 272.2 Hyperlipidemia Mixed V72.84 Examination Preoperative Unspec 244.9 Hypothyroidism Other Unspec Office Visit 04/29/2012 8:30a Orthopedic Neymar Marrero, 836.0 Dislocation Knee Services Of Brissa Tear Of Medial C.M.A. Cartilage Or Meniscus Curren Office Visit 04/16/2012 2:30p Orthopedic Neymar Marrero, 715.36 Osteoarthrosis Services Of Brissa Localzd Not Spec C.M.A. Prime Or 2Ndy Lower Leg 727.49 Cyst Synovial Other 719.06 Effusion Joint Lower Leg Office Visit 03/27/2012 3:40p [facility] Internal Yash Guerrero 729.5 Pain In Limb Brissa Navarro Office Visit 03/22/2012 10:20a [facility] Internal Yash Guerrero 719.46 Pain Joint Angelo Nevarez M.D. Lower Leg [place] 729.5 Pain In Limb Office Visit 10/19/2011 [facility] Oscar Guerrero 787.91 Diarrhea 10:20a Brissa Navarro Office Visit 10/06/2011 Sam Babin S. 414.01 Coronary 10:40a Mita Chambers M.D. Solomon 401.1 Hypertension Benign 272.4 Hyperlipidemia Other Unspec 424.0 Mitral Valve Disorder 424.1 Aortic Valve Disorder Office Visit 09/20/2011 2:20p [facility] Oscar Nevarez, 787.91 Diarrhea Angelo Pathak M.D. 434.11 Cerebral Embolism W/ Cerebral Infarc Office Visit 09/04/2011 Sam Babin S. 401.1 Hypertension 2:30p Santa Hahn M.D. Benign 414.01 Coronary Atherosclerosis Solomon 794.31 Electrocardiogram (ECG) (EKG) Abnormal Office Visit 07/21/2011 Sam Babin S. 401.1 Hypertension 10:00a Santa Hahn M.D. Benign 272.2 Hyperlipidemia Mixed 414.01 Coronary Atherosclerosis Solomon 794.31 Electrocardiogram (ECG) (EKG) Abnormal 424.0 Mitral Valve Disorder 424.1 Aortic Valve Disorder 434.11 Cerebral Embolism W/ Cerebral Infarc Office Visit 07/13/2011 10:00a Katerina Guerrero 434.11 Cerebral Medicine - Geri, M.D. Embolism W/ [place] Cerebral Infarc 401.1 Hypertension Benign 272.2 Hyperlipidemia Mixed 414.01 Coronary Atherosclerosis Solomon Office Visit 01/04/2011 10:00a DO Not Use [employer]enger Agent Yash E. V70.0 Examination AT Mynor Nevarez M.D. General Medical Routine AT Health Care Facility 401.1 Hypertension Benign 414.01 Coronary Atherosclerosis Solomon 272.0 Hypercholesterolemia Pure 790.21 Impaired Fasting Glucose 244.9 Hypothyroidism Other Unspec 724.1 Pain Thoracic Spine 530.81 Esophageal Reflux Office Visit 07/06/2010 10:20a DO Not Use [employer]enger Agent Yash E. 401.1 Hypertension Benign AT Mynor Nevarez M.D. 414.01 Coronary Atherosclerosis Solomon 272.0 Hypercholesterolemia Pure 790.21 Impaired Fasting Glucose Office Visit 02/16/2010 3:00p DO Not Use [employer]enger Agent Yash E. 401.1 Hypertension Benign AT Mynor Nevarez M.D. 272.2 Hyperlipidemia Mixed 414.01 Coronary Atherosclerosis Solomon 244.9 Hypothyroidism Other Unspec Office Visit 02/10/2010 11:00a DO Not Use [employer]enger Agent Yash E. V72.81 Examination AT Mynor Nevarez M.D. Preoperative Cardiovascular 401.1 Hypertension Benign 272.2 Hyperlipidemia Mixed 414.01 Coronary Atherosclerosis Solomon 244.9 Hypothyroidism Other Unspec Office Visit 05/04/2009 2:00p DO Not Use [employer]enger Agent Yash E. 401.1 Hypertension Benign AT Mynor Nevarez M.D. 272.2 Hyperlipidemia Mixed 414.01 Coronary Atherosclerosis Solomon 244.9 Hypothyroidism Other Unspec 311 Depressive Disorder Not Elsewhere Spec 787.20 Dysphagia, Unspecified Office Visit 03/30/2008 [facility] Yash E. 465.9 URI Upper Respiratory 1:45p Assoc AT Brissa Nevarez Infections Acute Unspec [facility] Office Visit 10/10/2007 [facility] Yash E. 272.0 Hypercholesterolemia Pure 10:00a Assoc AT Brissa Nevarez [facility] 414.01 Coronary Atherosclerosis Solomon 401.1 Hypertension Benign Office Visit 04/10/2007 10:45a [facility] Yash E. 272.2 Hyperlipidemia Mixed Assoc AT Brissa Nevarez [facility] 244.9 Hypothyroidism Other Unspec 796.2 Blood Pressure Reading Elevated W/O Hypertension 414.01 Coronary Atherosclerosis Solomon Office Visit 03/25/2007 [facility] Yash E. 272.0 Hypercholesterolemia Pure 2:45p Assoc AT Brissa Nevarez [facility] 414.01 Coronary Atherosclerosis Solomon V04.81 Need For Prophylactic Vaccination & Inoculation/Influenza Plan of Treatment Future Appointment(s):06/10/2018 1:15 pm - Javon Coleman M.D. at [facility]10/02/2018 2:40 pm - ROBERTH Crow at [facility] - [address]06/28/2018 11:00 am - Mulu Blackwell NP at [facility] Lbigdbyckpxhsoro77/21/2018 - Olaf Hahn M.D.G47.33 Obstructive sleep apnea (adult) (pediatric)I35.0 Nonrheumatic aortic (valve) axopmtqjK02.0 Nonrheumatic mitral (valve) rrtudwkgfaczjJ76.10 Atherosclerotic heart disease of [place] coronary artery withFollow up:6 months [employer] one yr ov with me
--- OUTSIDE RECORDS SUMMARY | 2018-05-20 09:38 | XMS REPORT | Continuity of Care Document ---
:1935 External Reference #:[id number] Author Name Kat Powell Care Team Providers Name Role Phone Chriss Romero MD Primary Care Physician Unavailable Payers Type Date Identification Numbers Payment Provider Subscriber Effective: Policy Number: [id number] Medicare [employer] 2001 PayID: [id number] [address] [place] [address] Policy Number: [id number] [facility] Huma Blue PayID: [id number] [address] [place] [address] Expires: 2009 Policy Number: [id number] [facility] Huma Blue PayID: [id number] [address] [place] [address] Advance Directives Type Date Description Status Comment [...] Onset: 09/10/2017 Renal artery stenosis Chriss Romero M.D.,FACP Active Note: RT Onset: 09/10/2017 Impaired fasting [...] Occupation Retired 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 Recreational Drug Use Denies Drug Use Smoking Status Reviewed: 05/01/18 Patient is a former patient quit when [...] Zsofia 2017 s tablet by Sohail, mouth [employer] every night at bedtime as needed insomnia Lorazepam 05/01/ Active Tablets 0.5mg 60tabs 1 tab by F41.9 Zsofia 2018 mouth 2x Sohail, daily as [employer] needed for anxiety Omeprazole 03/28/ Active Capsules 20mg 90caps 1 by mouth Mulu Marin DR every day HERBER Blackwell Levothyroxine 11/08/ Active Tablets 125mcg 90tabs take 1 Ramila Sodium 2018 tablet by Cotton, mouth M.D. every day Amlodipine 09/10/ Active Tablets 10mg 90tabs 1 by mouth Chriss Besylate 2018 every day Aldair Romero M.D.,FACP Cpap Mask And 08/16/ Active Device cpap R06.81 [facility] 2018 supplies - jayne Cabrera M.D.,FAC cushion, tubing, filters, for sleep apnea R06.02 Clopidogrel 03/14/2017 Active Tablets 75mg 90tabs Take 1 Ramila Bisulfate Tablet By Brissa Mansfield Mouth Every Day Atenolol 02/16/2017 Active Tablets 50mg 90tabs Take 1 Yash E. Tablet By Brissa Nevarez Mouth Every Day Trazodone HCL Active Tablets 50mg 90tabs 1 tablet at Balwinder Quinteros bedtime Brissa Romero,FACP Aspirin Active Tablets DR 325mg 1 by mouth Unknown every day Atorvastatin Active Tablets 80mg 90tabs 1 by mouth E78. Yo Calcium every day 5 Brissa Soliz Proscar [...] mouth Chriss 11/20/2017 every day Aldair Romero M.D.,[facility] Levothyroxine 09/10/2017 - Hx Tablets 137mcg 30tabs 1 by mouth Balwinder Terry Sodium 11/08/2017 every day Aldair Romero M.D.,[facility] Omeprazole 02/15/2017 - Hx Capsules DR 20mg 30caps 1 by mouth Other 11/20/2017 every day Ordering Provider Aripiprazole 02/15/2017 - Hx Tablets 2mg 1/2 tab q day Other 09/10/2017 Ordering Provider Amlodipine 02/07/2017 - Hx Tablets 5mg 30tabs Take 1 Tablet Chriss Besylate 09/10/2017 By Mouth Aldair Romero Every Dayana Brumfield,[facility] Ezetimibe 02/06/2017 - Hx Tablets 10mg 30tabs 1 tab by E7 Qutaybeh 11/20/2017 mouth every 8. S. day. 5 Brissa Hahn Lisinopril 01/31/2017 - Hx Tablets 10mg 90tabs take 1 tablet Chriss 09/19/2017 by mouth Aldair Romero, every day Brissa,IGLESIA Levothyroxine 01/30/2017 - Hx Tablets 150mcg 30tabs 1 by mouth Balwinder Terry Sodium 09/10/2017 every day Aldair Romero M.D.,[facility] Bupropion HCL 01/30/2017 - Hx Tablets ER [...] po q4-6h Neymar 02/26/2013 g prn pain Young, M.D. Ultram 03/26/2012 - Hx Tablets 50mg [...] Capsules DR 20mg 90caps 1 po qd [place] 01/04/2011 Brissa Soliz Simvastatin 02/14/2010 - Hx [...] po qd Yash Guerrero 02/14/2010 take with olly Nevarez M.D. of simvastatin 40 mgm Zithromax Z-Jose Guadalupe 03/30/2008 - Hx Tablets 250mg 1Pack as per Yash Guerrero 05/04/2009 luis antonio Nevarez M.D. Atenolol 10/10/2007 - Hx Tablets 25mg 90tabs 1 po qd Yash Guerrero 02/16/2017 Brissa Nevarez Simvastatin 10/10/2007 - Hx Tablets 40mg 90tabs 1 po qhs Yash E. 02/14/2010 (take with brunilda Nevarez M.D. 40 [...] Hx Tablets 0.5mg 45tabs 1 tab by F4 Chriss 05/01/2018 mouth twice a 1. D. [place], day as needed 9 M.D.,FACP Iron Supplement [...] Code Status Date Vaccine Reaction Lot # [id number] Given 02/28/2018 Fluzone High Dose 07633 Given 10/16/2017 Zoster (Shingles) Vaccine (HZV), Recombinant, Subunit, Adjuvanted 53497 Given 02/07/2017 Influenza Virus Vaccine, [id number] Quadrivalent, Split, Preservative Free 06316 Given 02/07/2017 Pneumococcal Conjugate Vaccine pt tolerated well [id number] Valent For Intramuscular Use Q2037 Given 03/09/2012 Fluvirin Im 3Yrs And Older Q2038 Given 02/17/2011 Fluzone Vaccine [id number] 88350 Given 03/25/2010 Influenza Virus 3Yrs & Over [id number] 54267 Given 03/25/2007 Influenza Virus 3Yrs & Over 59855 Given 03/25/2007 Influenza Virus 3Yrs & Over 55887 Given 10/12/2002 Td (History By Patient) 53958 Given 11/11/2001 Pneumovax (History By Patient) Vital Signs Date Vital Result Comment 05/01/2018 9:16am Height 65 inches 5'5" Weight [...] Result H/L Range Note Laboratory test 03/06/2018 [facility] TSH 0.60 mcIU/mL N 0.34- 5.[address] ([place] [address] Stim Horm) [phone] Hemoglobin A1c (Glyco HGB) 6.2 % High 4.0-5.6 1 Laboratory test 01/01/2018 [facility] TSH (Thyroid 0.83 mcIU/mL N 0.34-5.[address] Stim Horm) [place] [address] [phone] Hemoglobin A1c (Glyco HGB) 6.1 % High 4.0-5.6 2 Urine Culture And 12/08/2017 [facility] Urine Culture SEE RESULT [address] [place] [address] [phone] Urinalysis Profile 12/08/2017 [facility] [place] [address] [phone] Urine Appearance Cloudy Urine Specific [place] 1.016 N 1.010-1.030 Urine pH 7.0 N [...] Urine Squamous Epithelial Cell Present Abnormal Absent Laboratory test 12/08/2017 [facility] Troponin-I (TnI) 0.00 ng/ mL <0.[address] [place] [address] [phone] TSH (Thyroid Stim Horm) 0.75 mcIU/mL N 0.34-5.60 Magnesium 2.1 mg/dL N 1.9-2.7 Hemoglobin A1c (Glyco HGB) 6.6 % High 4.0-5.6 4 Comp Metabolic Panel 12/08/2017 [facility] Sodium 140 mmol/L N 135-[address] [place] [address] [phone] Potassium 3.4 mmol/L Low 3.5-5.0 Chloride 100 [...] Egfr Non- 86.5 >60 Egfr 104.7 >60 5 Laboratory test 12/08/2017 [facility] Lactic Acid 1.5 mmol/L N 0.5-2.0 [address] [place] [address] [phone] CBC Auto Diff 12/08/2017 [facility] White Blood 5.3 10^3/uL N 3.5-10.[address] [place] [address] [phone] Red Blood Count 4.54 10^6/uL N 4.00-5.40 [...] 0-2 Nucleated Red Blood Cells % 0 Inr/Protime 12/08/2017 [facility] Inr 0.94 N 0.77-1.[address] [place] [address] [phone] Laboratory test 11/21/2017 [facility] Stool SEE RESULT 7, [address] [place] [address] [phone] C Difficile PCR SEE RESULT BELOW 9 Stool Calprotectin 293 g/G Abnormal 10 O&P Ova & Parasites Screen SEE RESULT BELOW 11 Laboratory test 11/02/2017 [facility] TSH (Thyroid 0.18 Low 0.34-5.[address] Stim Horm) mcIU/[place] [address] [phone] Hemoglobin A1c (Glyco HGB) 6.3 % High 4.0-5.6 12 Laboratory test 09/17/2017 [facility] Lactic Acid 0.7 mmol/L N 0.5-2.0 [address] [place] [address] [phone] CBC Auto Diff 09/17/2017 [facility] White Blood 6.5 10^3/uL N 3.5-10.[address] [place] [address] [phone] Red Blood Count 4.56 10^6/uL N 4.0-5.4 [...] Blood Cells % 0.1 Comp Metabolic 09/17/2017 [facility] Potassium 3.3 mmol/L Low 3.5-5.0 Panel [address] [place] [address] [phone] Chloride 105 mmol/L N 101-111 Co2 Carbon [...] 7 mmol/L N 2-11 Laboratory test 09/17/2017 [facility] Troponin-I (TnI) 0.01 ng/ mL <0.04 finding [address] [place] [address] [phone] TSH (Thyroid Stim Horm) 0.02 mcIU/mL Low 0.34-5.60 Laboratory test 08/30/2017 [facility] Vitamin B12 310 pg/mL N 180-914 15 finding [address] [place] [address] [phone] TSH (Thyroid Stim Horm) 0.15 mcIU/mL Low 0.34-5.60 16 Basic Metabolic Panel 08/30/2017 [facility] Sodium 142 mmol/L N 139-[address] [place] [address] [phone] Potassium 3.6 mmol/L N 3.5-5.0 Chloride 104 mmol/L N 101-111 Co2 Carbon Dioxide 30 mmol/L N 22-32 Anion Gap 8 mmol/L N 2-11 Glucose 123 mg/dL High 70-100 Blood Urea Nitrogen 17 mg/dL N 6-24 Creatinine 0.94 mg/dL N 0.67-1.17 BUN/Creatinine Ratio 18.1 N 8-20 Calcium 8.8 mg/dL N 8.6-10.3 Egfr Non- 77.0 >60 Egfr 99.1 >60 17 Lipid Profile 08/30/2017 [facility] Triglycerides 79 mg/dL 18 (Trig/Chol/HDL) [address] [place] [address] [phone] Cholesterol 122 mg/dL 19 HDL Cholesterol 43.4 mg/dL 20 LDL Cholesterol 63 mg/dL 21 Laboratory test 04/17/2017 [facility] Renin <0.6 ng/mL/h [address] [place] [address] [phone] Laboratory test 04/17/2017 [facility] Renin <0.6 ng/mL/h [address] [place] [address] [phone] Laboratory test 02/13/2017 [facility] Lactic Acid 1.3 mmol/L N 0.5-2. [address] [place] [address] 0 [place] [address] [phone] CBC Auto Diff 02/13/2017 [facility] White Blood 5.9 10^3/uL N 3.5-[address] [place] [address] Count .8 [place] [address] [phone] Red Blood Count 4.47 10^6/uL N 4.0-5.4 [...] % 0.1 N Comp Metabolic Panel 02/13/2017 [facility] Sodium 140 mmol/L N 133-145 [address] [place] [address] [phone] Potassium 3.7 mmol/L N 3.5-5.0 Chloride 104 [...] 111.5 N >60 25 Laboratory test 02/13/2017 [facility] Troponin-I (TnI) 0.00 ng/ mL N <0.04 finding [address] [place] [address] [phone] Lipid Profile 02/13/2017 [facility] Triglycerides 80 mg/dL N 26 (Trig/Chol/HDL) [address] [place] [address] [phone] Cholesterol 93 mg/dL N 27 HDL Cholesterol 36.8 mg/dL N 28 LDL Cholesterol 40 mg/dL N 29 Basic Metabolic Panel 02/01/2017 [facility] Sodium 140 mmol/L N 133-145 [address] [place] [address] [phone] Potassium 3.9 mmol/L N 3.5-5.0 Chloride 103 mmol/L N 101-111 Co2 Carbon Dioxide 33 mmol/L High 22-32 Anion Gap 4 mmol/L N 2-11 Glucose 123 mg/dL High 70-100 Blood Urea Nitrogen 12 mg/dL N 6-24 Creatinine 0.78 mg/dL N 0.67-1.17 BUN/Creatinine Ratio 15.4 N 8-20 Calcium 9.2 mg/dL N 8.6-10.3 Egfr Non- 95.8 N >60 Egfr 123.2 N >60 30 Lipid Profile 02/01/2017 [facility] Triglycerides 149 mg/dL N 31 (Trig/Chol/HDL) [address] [place] [address] [phone] Cholesterol 178 mg/dL N 32 HDL Cholesterol 47.9 mg/dL N 33 LDL Cholesterol 100 mg/dL N 34 Laboratory test 02/01/2017 [facility] Vitamin B12 310 pg/mL N 180-914 35 finding [address] [place] [address] [phone] Basic Metabolic 01/17/2017 [facility] Sodium 140 mmol/L N 133- 145 Panel [address] [place] [address] [phone] Potassium 3.6 mmol/L N 3.5-5.0 Chloride 104 mmol/L N 101-111 Co2 Carbon Dioxide 30 mmol/L N 22-32 Anion Gap 6 mmol/L N 2-11 Glucose 100 mg/dL N 70-100 Blood Urea Nitrogen 17 mg/dL N 6-24 Creatinine 0.90 mg/dL N 0.67-1.17 BUN/Creatinine Ratio 18.9 N 8-20 Calcium 8.7 mg/dL N 8.6-10.3 Egfr Non- 81.2 N >60 Egfr 104.4 N >60 36 Laboratory test 01/17/2017 [facility] Magnesium 2.2 mg/dL N 1.9-2.[address] [place] [address] [phone] Cath Panel 02/03/2014 Activated 30.6 seconds N 24.0-36.1 Partial Thrombo Time CBC Auto Diff 02/03/2014 White Blood 5.8 10^3/uL N 4.8-10.8 Count Red Blood Count 4.42 10^6/uL N 4.0-5.4 [...] Nucleated Red Blood Cells % 0.1 N Inr/Protime 02/03/2014 Inr 0.89 N 0.85-1.06 Basic Metabolic Panel 02/03/2014 Sodium 139 [...] N >60 Egfr 114.0 N >60 37 Cath Panel 07/11/2013 [facility] Activated 31.3 seconds 24.0- 36.[address] [place] [address] Time [phone] CBC Auto 07/11/2013 [facility] White Blood 6.4 10^3/uL 4.8- 10.[address] [place] [address] [phone] Red Blood Count 4.20 10^6/uL 4.0-5.4 Hemoglobin [...] Cells % 0 Basic Metabolic Panel 07/11/2013 [facility] Sodium 141 mmol/L 133-[address] [place] [address] [phone] Potassium 3.8 mmol/L 3.5-5.0 Chloride 104 mmol/L 101-111 Co2 Carbon Dioxide 31.0 mmol/L 22-32 Anion Gap 6.0 mmol/L 2-11 Glucose 87 mg/dL 70-100 Blood Urea Nitrogen 21 mg/dL 6-24 Creatinine 0.70 mg/dL 0.50-1.40 BUN/Creatinine Ratio 30.0 High 8-20 Calcium 9.1 mg/dL 8.1-9.9 Egfr Non- 109.4 >60 Egfr 140.6 >60 39 Inr/Protime 07/11/2013 [facility] Inr 0.97 0.85-1.06 [address] [place] [address] [phone] Laboratory test 04/24/2013 [facility] Inr 1.08 High 0.85-1.06 40 [place] [address] [phone] Laboratory test 04/21/2013 [facility] Inr 1.24 High 0.85-1.06 41 [place] [address] [phone] Urinalysis 04/08/2013 [facility] [place] [address] [phone] Urine Appearance Clear Urine Specific [place] 1.020 1.010-1.030 Urine Esterase Trace Abnormal Negative Urine Nitrate Negative Negative Urine Urobilinogen Negative E.U./dL Negative Urine Protein Negative mg/dL Negative Urine pH 6.5 5-9 Urine Blood Negative Negative Urine Ketones Negative mg/dL Negative Urine Bilirubin Negative Negative Urine Glucose Negative mg/dL Negative Urine Microscopic 04/08/2013 [facility] Urine WBC 1+ (<3 None Seen /hpf) [place] [address] [phone] Urine RBC 1+ (<3 /hpf) None Seen Bacteria Urine None Seen None Seen CBC No Diff 04/08/2013 [facility] White Blood 6.3 10^3/uL 4.8 -10.8 [address] [place] [address] [phone] Red Blood Count 4.37 10^6/uL 4.0-5.4 Hemoglobin 13.0 g/dL Low 14.0-18.0 Hematocrit 40 % Low 42-52 Mean Corpuscular Volume 92 fL 80-94 Mean Corpuscular Hemoglobin 30 pg 27-31 Mean Corpuscular HGB Conc 33 g/dL 31-36 Red Cell Distribution Width 13 % 10.5-15 Platelet Count 180 10^3/uL 150-450 Mean Platelet Volume 9 um3 7.4-10.4 Inr/Protime 04/08/2013 [facility] Inr 0.91 0.85-1.[address] [place] [address] [phone] Laboratory test 04/08/2013 [facility] Activated 30.4 24.0- 36.[address] [place] [address] Thrombo Time [phone] Basic Metabolic 04/08/2013 [facility] Sodium 140 mmol/L 133- 145 Panel [place], [place] [address]85 [phone] Potassium 3.7 mmol/L 3.5-5.0 Chloride 104 mmol/L 101-111 Co2 Carbon Dioxide 32.0 mmol/L 22-32 Anion Gap 4.0 mmol/L 2-11 Glucose 108 mg/dL High 70-100 Blood Urea Nitrogen 15 mg/dL 6-24 Creatinine 0.80 mg/dL 0.50-1.40 BUN/Creatinine Ratio 18.8 8-20 Calcium 9.0 mg/dL 8.1-9.9 Egfr Non- 94.0 >60 Egfr 120.9 >60 44 Type & Screen 04/08/2013 [facility] Patient Blood Type A Negative [address] [place] [address] [phone] Antibody Screen NEGATIVE Laboratory test 01/21/2013 [facility] Fluid Crystals None Seen 45 finding [address] [place] [address] [phone] Body Fluid C&S 01/21/2013 [facility] Body Fluid Cult (SEE NOTE) 46 [facility] [place] [address] [phone] Body Fluid Cell 01/21/2013 [facility] Body Fluid Synovial Fluid Count [address] [place] [address] [phone] Body Fluid Appearance Cloudy Body Fluid Color Yellow Body Fluid Volume 1.5 mL Body Fluid WBC 67 Body Fluid RBC 2770 Body Fluid Polys 21 Body Fluid Lymph 54 Body Fluid Casey 22 Body Fluid Eosinophil 2 Body Fluid Total Cells Counted 100 Fluid Reviewed By MD (SEE NOTE) 47 Laboratory test 01/07/2013 [facility] C Reactive < 0.5 mg/dL Less than finding [facility] Protein 0.5 [place] [address] [phone] CBC Auto Diff 01/07/2013 [facility] White Blood 5.6 10^3/uL 4.8-10.[address] [place] [address] [phone] Red Blood Count 4.30 10^6/uL 4.0-5.4 Hemoglobin [...] Blood Cells % 0 Laboratory test 01/07/2013 [facility] Erythrocyte Sed 18 mm/Hr 0-[address] [place] [address] [phone] Basic Metabolic 05/02/2012 [facility] Sodium 138 mmol/L 133- [address] [place] [address] [phone] Potassium 3.3 mmol/L Low 3.5-5.0 Chloride 101 mmol/L 101-111 Co2 Carbon Dioxide 32.0 mmol/L 22-32 Anion Gap 5.0 mmol/L 2-11 Glucose 119 mg/dL High 70-100 Blood Urea Nitrogen 15 mg/dL 6-24 Creatinine 0.80 mg/dL 0.50-1.40 BUN/Creatinine Ratio 18.8 8-20 Calcium 8.4 mg/dL 8.1-9.9 Egfr Non- 94.2 >60 Egfr 121.2 >60 48 Laboratory test 05/02/2012 [facility] Creatine 110 U/L 0-[address] [place] [address] [phone] CBC With Manual 05/02/2012 [facility] White Blood 9.7 4.8- 10.[address] Count 10^3/[place] [address] [phone] Red Blood Count 4.11 10^6/uL 4.0-5.4 Hemoglobin [...] % 0 % RBC Morphology Normal Normal Comp Metabolic Panel 03/23/2012 [facility] Sodium 138 mmol/L 133-[address] [place] [address] [phone] Potassium 3.4 mmol/L Low 3.5-5.0 Chloride 104 [...] Egfr 121.2 >60 50 Laboratory test 03/23/2012 [facility] Uric Acid 3.9 mg/dL 2.6 -7.[address] [place] [address] [phone] CBC Auto Diff 03/23/2012 [facility] White Blood 7.1 10^3/uL 4.8-10.[address] [place] [address] [phone] Red Blood Count 3.86 10^6/uL Low 4.0-5.4 [...] Blood Cells % 0 Laboratory test 03/23/2012 [facility] Erythrocyte Sed 41 MM/HR High 0-[address] [place] [address] [phone] Laboratory test 01/24/2012 [facility] TSH 1.02 0.34-5.[address] MIU/ML 0 [place] [address] [phone] Basic Metabolic 01/24/2012 [facility] Sodium 137 135-[address] mmol/[place] [address] [phone] Potassium 4.2 mmol/L 3.5-5.0 Chloride 103 mmol/L 101-111 Co2 (Carbon Dioxide) 29.0 mmol/L 22-32 Anion Gap 5.0 mmol/L 2-11 51 Glucose 84 mg/dL 70-100 BUN 20 mg/dL 6-24 Creatinine 0.8 mg/dL 0.50-1.40 One Over Creatinine 1.25 BUN/Creatinine Ratio 25.0 High 8-20 Calcium 9.0 mg/dL 8.1-9.9 eGFR Non- 94.2 > 60 eGFR 121.2 > 60 52 Laboratory test 01/24/2012 [facility] Iron Total 63 g/dL 45 -[address] [place] [address] [phone] Ferritin 92 NG/ML 24-336 Vitamin B12 369 pg/mL 180-914 Folic Acid > 25.8 NG/ML See Below 53 CBC Auto Diff 01/24/2012 [facility] White Blood 6.3 CUMM 4.8- 10.[address] [place] [address] [phone] Red Cell Count 3.83 CUMM Low 4.6-6.2 [...] 0-0.6 Abs Basophils 0 0-0.2 Surgical 12/13/2011 [facility] Surgical [address] Pathology <SEE NOTE> [place] [address] [phone] Comp Metabolic 10/19/2011 [facility] Sodium 140 mmol/L 135- Panel [address] [place] [address] [phone] Potassium 3.8 mmol/L 3.5-5.0 Chloride 105 mmol/L [...] > 60 eGFR 105.8 > 60 57 Laboratory test 10/19/2011 [facility] Erythrocyte Sed 13 MM/HR 0-[address] [place] [address] [phone] C Reactive Protein < 0.5 mg/dL Less Than 0.5 TSH 0.82 MIU/ML 0.34-5.60 CBC Auto Diff 10/19/2011 [facility] White Blood 6.6 CUMM 4.8- 10.[address] [place] [address] [phone] Red Cell Count 4.25 CUMM Low 4.6-6.2 [...] Basophils 0 0-0.2 58 Laboratory test 10/03/2011 [facility] Stool Culture ---- [address] <SEE NOTE> [place] [address] [phone] Manual 10/02/2011 [facility] Polysegmented 71 % [address] Neutrophil -8 [place] [address] 3 [phone] Band Neutrophil 1 % 0-8 Lymphocyte 21 % Low 25-47 Monocyte 7 % 0-13 Absolute Neutrophil Count 4.30 RBC Morphology NORMAL Laboratory test 10/02/2011 [facility] Erythrocyte Sed 10 MM/HR 0-[address] [place] [address] [phone] Comp Metabolic 10/02/2011 [facility] Sodium 138 mmol/L 135- [address] [place] [address] [phone] Potassium 3.4 mmol/L Low 3.5-5.0 Chloride 100 [...] > 60 62 CBC Auto Diff 10/02/2011 [facility] White Blood 6.1 CUMM 4.8- 10.[address] [place] [address] [phone] Red Cell Count 4.34 CUMM Low 4.6-6.2 Hemoglobin 13.9 g/dL Low 14.0-18.0 Hematocrit 40 % Low 42-52 Mean Corpuscular Volume 93 um3 80-94 Mean Corpuscular Hemoglob 32 pg High 27-31 Mean Corpuscular HGB Cone 34 g/dL 32-36 Redcell Distribution WDTH 13 % 10.5-15 Platelet Count 190 CUMM 150-450 Mean Platelet Volume 9.5 um3 7.4-10.4 63 Laboratory test 01/04/2011 [facility] Hemoglobin A1c 5.7 5-7 finding Laboratory test 12/27/2010 [facility] Thyroxine 5.9 g/dL 5- [address] [place] [address] [phone] CBC W/Electronic 12/27/2010 [facility] White Blood Count 6.5 CUMM 4.8-10.[address] [place] [address] [phone] Red Cell Count 4.30 CUMM Low 4.6-6.2 [...] Abs Basophils 0 0-0.2 Lipid Panel 12/27/2010 [facility] Cholesterol 165 mg/dL Less Than [address] [place] [address] [phone] Triglyceride 96 mg/dL 40-200 High Density Lipoprotein 43 mg/dL 40-60 65 Cholesterol/HDL Ratio 3.84 AVERAGE 1-4.97 Low Density Lipoprotein 103 mg/dL High Less Than 100 66 CMP Panel 12/27/2010 [facility] Albumin 4.1 GM/DL 3.2-5.[address] [place] [address] [phone] Alt (SGPT) 19 U/L 17-63 Calcium 9.1 [...] eGFR 121.5 > [address] Nevarez's 12/27/2010 [facility] TSH 0.63 0.34-5.60 Lab Panel [address] MIU/[place] [address] [phone] Laboratory 07/06/2010 [facility] Hemoglobin A1c 6.3 5-7 test finding Laboratory 04/26/2010 [facility] Hemoglobin A1c 6.3 % High Less Than 70 test finding [address] 6.0 [place] [address] [phone] Lipid Profile 04/26/2010 [facility] Triglyceride 83 mg/dL 40- 200 (Trig/Chol/HD [address] L) [place] [address] [phone] Cholesterol 156 mg/dL Less Than 200 71 High Density Lipoprotein 41 mg/dL 40-60 72 Cholesterol/HDL Ratio 3.80 AVERAGE 1-4.97 Low Density Lipoprotein 98 mg/dL Less Than 100 73 Laboratory test finding 04/26/2010 [facility] Ast (Sgot) 25 U/L 12-[address] [place] [address] [phone] Alt (SGPT) 28 U/L 17-63 Basic Metabolic Panel 04/26/2010 [facility] Sodium 140 mmol/L 135-[address] [place] [address] [phone] Potassium 3.8 mmol/L 3.5-5.0 Chloride 103 mmol/L 101-111 Co2 (Carbon Dioxide) 32.0 mmol/L 22-32 Anion Gap 5.0 mmol/L 2-11 74 Glucose 92 mg/dL 70-100 75 BUN 14 mg/dL 6-24 Creatinine 0.90 mg/dL 0.50-1.40 One Over Creatinine 1.10 BUN/Creatinine Ratio 15.6 8-20 Calcium 9.0 mg/dL 8.1-9.9 eGFR Non- 87.9 > 60 eGFR 106.4 > 60 76 Laboratory test 04/13/2010 [facility] PSA,Diagnostic 1.48 NG/ML 0-4 [address] [place] [address] [phone] DR Nevarez's Lab 02/11/2010 [facility] TSH 1.55 0.34-5.[address] MIU/ML 0 [place] [address] [phone] Comp Metabolic 02/11/2010 [facility] Sodium 143 mmol/L 135- [address] [place] [address] [phone] Potassium 3.8 mmol/L 3.5-5.0 Chloride 105 mmol/L [...] 106.4 > 60 81 Lipid Profile 02/11/2010 [facility] Triglyceride 203 mg/dL High 40-200 (Trig/Chol/HDL) [address] [place] [address] [phone] Cholesterol 233 mg/dL High Less Than 200 82 High Density Lipoprotein 42 mg/dL 40-60 83 Cholesterol/HDL Ratio 5.55 AVERAGE High 1-4.97 Low Density Lipoprotein 150 mg/dL High Less Than 100 84 CBC With 02/11/2010 [facility] White Blood 6.9 CUMM 4.8-10.8 Electronic Diff 101 [place] [address] [phone] Red Cell Count 4.59 CUMM Low 4.6-6.2 [...] 0-0.6 Abs Basophils 0 0-0.2 Surgical 06/08/2009 [facility] Surgical [address] Pathology <SEE NOTE> [place] [address] [phone] Laboratory 04/14/2009 [facility] PSA,Diagnosti 1.70 NG/ML 0- 4 [address] [place] [address] [phone] CBC With 04/01/2008 [facility] White Blood 5.3 CUMM 4.8- [address] Count 10.8 [place] [address] [phone] Red Cell Count 4.68 CUMM 4.6-6.2 Hemoglobin [...] Basophils 0 0-0.2 Comp Metabolic Panel 04/01/2008 [facility] Sodium 141 mmol/L 135-[address] [place] [address] [phone] Potassium 3.3 mmol/L Low 3.5-5.0 Chloride 106 [...] (Sgot) 34 U/L 12-42 Lipid Profile 04/01/2008 [facility] Triglyceride 295 mg/dL High 40-200 (Trig/Chol/HDL) [address] [place] [address] [phone] Cholesterol 165 mg/dL Less Than 200 91 High Density Lipoprotein 33 mg/dL Low 40-60 92 Cholesterol/HDL Ratio 5.00 AVERAGE High 1-4.97 Low Density Lipoprotein 73 mg/dL Less Than 100 93 Thyroxine Free 04/01/2008 [facility] Free Thyroxine 0.86 NG/ML 0.61-1.[address] [place] [address] [phone] Laboratory test 04/01/2008 [facility] TSH 0.93 0.34-5.[address] MIU/[place] [address] [phone] PSA Screening 1.42 NG/ML 0-4 95 Comp Metabolic 04/04/2007 [facility] One Over Creatinine 0.90 [address] [place] [address] [phone] Anion Gap 6.0 mmol/L 2-11 97 Albumin/Globulin [...] Creatinine 1.1 mg/dL 0.5-1.4 Lipid Profile 04/04/2007 [facility] Cholesterol/HDL 4.81 1- 4.97 (Trig/Chol/HDL) [address] [place] [address] [phone] Cholesterol 202 mg/dL High Less Than 200 98 Triglyceride 218 mg/dL High 40-200 High Density Lipoprotein 42 mg/dL 40-60 Low Density Lipoprotein 116 mg/dL High Less Than 100 99 Laboratory test 04/04/2007 [facility] PSA Screening 1.58 NG/ML 0-4 [address] [place] [address] [phone] TSH 1.33 MIU/ML 0.34-5.60 CBC W/ Electronic 04/04/2007 [facility] White Blood 7.2 CUMM 4.8-10.[address] [place] [address] [phone] Abs Basophils 0 0-0.2 Abs Eosinophils 0.3 [...] in selective patients <6.0%. Please refer to [employer] diabetic care guidelines for further information. 2 Therapeutic target for the treatment of diabetes mellitus patients is <7% HBA1C, and in selective patients <6.0%. Please refer to [employer] Association diabetic care guidelines for further information. 3 SEE RESULT BELOW Name: HUMA BLUE : [address]: Belen Sousa MD Acct: [id number] Unit: [id number] AGE: 82 Location: [place] [address] Re12/09/17 Dis: 12/10/17 SEX: M Status: DIS IN SPEC: [id number] ANJUM: 12/09/17-[address] [facility] [address]: Huma Holcomb MD REQ: [id number] RECD: 12/09/17 STATUS: DIEUDONNE FERNANDEZ DR: Chriss Romero MD _ SOURCE: URINE SPDES: ORDERED: Urine Culture Procedure Result Reported Site Urine Culture Final 12/11/17- 0815 ML No Growth (<1,000 CFU/mL) * ML - Main Lab . END OF REPORT DEPARTMENT OF PATHOLOGY, [address] [place] [address] Jeb Reyes M.D. Director [facility] # [id number] 4 Therapeutic target for the treatment of diabetes mellitus patients is <7% HBA1C, and in selective patients <6.0%. Please refer to [employer] Diabetes Association diabetic care guidelines for further information. 5 Because ethnic data is not always [...] 5 Kidney failure <15 (or dialysis) 6 [place] Severe Sepsis and Septic Shock Management Bundle Measure requires all lactic acids initially measuring >2.0 mmol/L be repeated. 7 PATIENT WILL BRING BACK PLAIN CONTAINER ANOTHER DAY STOOL KIT ONLY 8 SEE RESULT BELOW Name: HUMA BLUE : [address]: Balwinder Romero MD Acct: [id number] Unit: [id number] AGE: 82 Location: [facility] Re11/21/17 SEX: M Status: REG REF SPEC: [id number] ANJUM: 11/21/17-[address]: Chriss Romero MD REQ: [id number] RECD: 11/21/17 STATUS: COMP _ SOURCE: STOOL [...] CONTINUED ON NEXT PAGE DEPARTMENT OF PATHOLOGY, [address] [place] [address] Jeb Reyes M.D. Director [facility] # [id number] Patient: HUMA BLUE [id number] (Continued) Specimen: [id number] Collected: 11/21/17 Received: 11/21/17-6 (Continued) Procedure Result Reported Site O P: Giardia/Cryptospor Screen Final (continued) 11/21/17 624 Giardia and cryptosporidium antigen testing performed by enzyme immunoassay. If patient is immunocompromised or has traveled to or is from a developing country, a full ova and parasite exam with microscopic (OPMIC) is recommended. All samples will be held one month in case full ova and parasite testing is requested. Contact the Microbiology Department at [phone]. TEST LIMITATIONS: As with all diagnostic procedures, [...] the test and are not recommended. * [facility] . END OF REPORT DEPARTMENT OF PATHOLOGY, [address] [place] [address] Jeb Reyes M.D. Director [facility] # [id number] 9 SEE RESULT BELOW Name: HUMA BLUE : [address]: Balwinder Romero MD Acct: [id number] Unit: [id number] AGE: 82 Location: [facility] Re11/21/17 SEX: M Status: REG REF SPEC: [id number] ANJUM: 11/21/17-[address] [facility] [address]: Chriss Romero MD REQ: [id number] RECD: 11/22/17 STATUS: COMP _ SOURCE: STOOL [...] 2 Toxigenic C.diff NEGATIVE * ML - Main Lab . END OF REPORT DEPARTMENT OF PATHOLOGY, [address] [place] [address] Jeb Reyes M.D. Director [facility] # [id number] Interpretation: Abnormal (>120.0 mcg/g) REFERENCE VALUE <=50.0 (Normal) Test Performed by: [facility] - [address] [address] 11 SEE RESULT BELOW Name: HUMA BLUE : [address]: Balwinder Romero MD Acct: [id number] Unit: [id number] AGE: 82 Location: [facility] Re11/21/17 SEX: M Status: REG REF SPEC: [id number] ANJUM: 11/21/[address]: Chriss Romero MD REQ: [id number] RECD: 11/21/17 STATUS: RES _ SOURCE: STOOL SPDESC: ORDERED: Stool Culture, O P: Glo/Jimbo COMMENTS: PATIENT WILL BRING BACK PLAIN CONTAINER [...] is requested. Contact the Microbiology Department at [phone]. TEST LIMITATIONS: As with all diagnostic procedures, [...] CONTINUED ON NEXT PAGE DEPARTMENT OF PATHOLOGY, [address] [place] [address] Jeb Reyes M.D. Director [facility] # [id number] Patient: HUMA BLUE [id number] (Continued) Specimen: [id number] Collected: 11/21/17-08 Received: 11/21/17-105 (Continued) Procedure Result Reported Site O P: Giardia/Cryptospor Screen Final (continued) 11/21/17- 1449 days. The use of colonic washes, aspirates or other diluted sample types has not been established and could affect the performance of the assay. Stool samples contaminated with an oily or particulate base (eg. Barium, mineral oil etc.) could interfere with the test and are not recommended. * ML - Main Lab . END OF REPORT DEPARTMENT OF PATHOLOGY, [address] [place] [address] Jeb Reyes M.D. Director [facility] # [id number] 12 Therapeutic target for the treatment of diabetes mellitus patients is <7% HBA1C, and in selective patients <6.0%. Please refer to [employer] Diabetes Association diabetic care guidelines for further information. 13 [facility] Severe Sepsis and Septic Shock Management [...] developed and its performance characteristics determined by [facility] in a manner consistent with CLIA requirements. This test has not been cleared or approved by the U.S. Food and Drug Administration. Test Performed by: [facility] - [address] [address] 23 REFERENCE VALUE (Peripheral vein specimen) Na-deplete, upright: Mean: 5.9 Range: 2.9-10.8 Na-replete, upright: Mean: 1.0 Range: < or=0.6-3.0 ADDITIONAL INFORMATION Testing performed by Liquid Chromatography-Tandem Mass Spectrometry (LC-MS/MS). This test was developed and its performance characteristics determined by [facility] in a manner consistent with CLIA requirements. This test has not been cleared or approved by the U.S. Food and Drug Administration. Test Performed by: [place] [address] 24 [facility] Severe Sepsis and Septic Shock Management [...] 5 Kidney failure <15 (or dialysis) 38 labs to be drawn between July 09 - 2013 39 Because ethnic data is not always [...] 5 Kidney failure <15 (or dialysis) 40 Please note the change in the INR reference range effective 13. 41 Please note the change in the INR reference range effective 13. 42 Please note the change in the INR reference range effective 13. 43 AA 04/16/13 44 Because ethnic data is not always [...] 5 Kidney failure <15 (or dialysis) 45 LEFT KNEE Synovial (Joint) Fluid 46 RUN DATE: 01/25/13 [facility] LAB LIVE PAGE 1 RUN TIME: 1010 [address] [place], [place] [address] Specimen Inquiry Name: HUMA BLUE : [address]: Neymar Marrero MD Acct: [id number] Unit: [id number] AGE: 77 Location: [facility] Re01/21/13 SEX: M Status: REG REF SPEC: [id number] ANJUM: 01/21/[address] [facility] [address]: Neymar Marrero MD REQ: [id number] RECD: 01/21/13 STATUS: COMP _ SOURCE: JOINT FLUI SPDESC:KNEE LEFT ORDERED: BF Cult/GS COMMENTS: LEFT KNEE Procedure Result Verified Site Body Fluid Gram Stain Final 01/21/13- 1229 ML 1+ Polys No Organisms Seen Preparation By Direct Smear Body Fluid Culture Final 01/25/13- 1010 ML No Growth Day 4 END OF REPORT * ML=Testing performed at Main Lab DEPARTMENT OF PATHOLOGY, [address] [place] [address] Jeb Reyes M.D. Director [facility] Permit #[id number] Slide and differential reviewed. No bacteria, [...] has been shown to interfere with the [place] method for measuring total bilirubin. Samples from [...] 4.1 NG/ML 54 ---- RUN DATE: 12/15/11 [facility] NMI LIVE PAGE 1 RUN TIME: 1323 Specimen Inquiry RUN USER: INTERFACE -- Name: HUMA BULE Status: REG REF Re12/13/11 Age/Sex: 76/M Unit#: [id number] Location: [address] [place] [address].O.B. : [birth year] -- Specimen: [id number] LOIDA Spec Date:12/13/11 Dr: Clayton Damon MD [...] polyp (see comment). -- DEPARTMENT OF PATHOLOGY, [address] [place] [address] [facility] Permit #[id number] Jeb Reyes M.D. Director Iona Denise M.D. Radiation Officer florentin -- -- RUN DATE: 12/15/11 [facility] NMI LIVE PAGE 2 RUN TIME: 1323 Specimen Inquiry RUN USER: INTERFACE -- Name: HUMA BLUE Accapril#: [id number] Status: REG REF Re12/13/11 Age/Sex: 76/M Unit#: [id number] Location: [place] Cha.O.B. 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 Part 3 (sigmoid nodule) shows colonic mucosa with again evidence of collagenous colitis and with hyperplastic change. Signed Electronically by: IONA DENISE 12/15/11 1323 -- -- DEPARTMENT OF PATHOLOGY, [address] [place] [address] [facility] Permit #[id number] Jeb Reyes M.D. Director Iona Denise M.D. Radiation Officer Dir florentin -- 55 Anion gap measurement may be of limited value in the presence of any alkalosis, especially in a combined acid base disorder. . 56 A metabolite of Naproxen, O-desmethylnaproxen, has been shown to interfere with the [place] method for measuring total bilirubin. Samples from [...] 58 Lymphopenia % 59 RUN DATE: 10/10/11 [facility] NMI LIVE PAGE 1 RUN TIME: 1455 Specimen Inquiry RUN USER: INTERFACE Name: HUMA BLUE Chele#: [id number] Status: REG REF Re10/03/11 Age/Sex: 76/M Unit#: [id number] Location: [facility] : 37 SPEC #: [id number] ANJUM: 10/03/11 STATUS: COMP REQ #: [id number] RECD: 10/03/[address] [facility] [address] S[facility]: STOOL ENTR: 10/03/[address] [facility] [address]: [facility]: ORDERED: STOOL CULTURE, O P (FULL), O P: GLO/Eva KEATING AMP DNA, STL LACTOF QUERIES: MEDENT REQUISITION # [id number] ACT WKST: P 10/07/11 #1 Procedure Result [...] ANTIGEN NEGATIVE BY IMMUNOASSAY DEPARTMENT OF PATHOLOGY, [address] [place] [address] [facility] Permit #[id number] Brissa Cummings M.D. Director Of Public Relations RUN DATE: 10/10/11 [facility] NMI LIVE PAGE 2 RUN TIME: 9253 Specimen Inquiry RUN USER: INTERFACE Name: HUMA BLUE Status: REG REF Re10/03/11 Age/Sex: 76/M Unit#: [id number] [facility] -- -- CONTINU ED Procedure [...] is requested. Contact the Microbiology Department at [phone]. TEST LIMITATIONS: As with all diagnostic procedures, [...] LACTOFERRIN POSITIVE BY IMMUNOASSAY DEPARTMENT OF PATHOLOGY, [address] [place] [address] [facility] Permit #[id number] Jeb Reyes M.D. Director Iona Denise M.D. Director Of Public Relations RUN DATE: 10/10/11 [facility] NMI LIVE PAGE 3 RUN TIME: 1451 Specimen Inquiry RUN USER: INTERFACE Name: HUMA BLUE Status: REG REF Re10/03/11 Age/Sex: 76/M Unit#: [id number] Location: [facility] : 36 -- -- CONTINU ED Procedure Result Verified Site FECAL LACTOFERRIN (STOOL WBC) Final (continued) 10/03/111455 TEST LIMITATIONS: Assay detects elevated levels of lactoferrin released from fecal leukocytes as a marker of intestinal inflammation. The test may not be appropriate in immunocompromised persons. Fecal samples from breast fed infants should not be used with this assay. [facility] Permit #[id number] [address] [place] [address] DEPARTMENT OF PATHOLOGY, [address] [place] [address] [facility] Permit #[id number] Jeb Reyes M.D. Director Iona Denise M.D. Director Of Public Relations 60 Anion gap measurement may be of [...] has been shown to interfere with the [place] method for measuring total bilirubin. Samples from [...] 5 Kidney failure <15 (or dialysis) 70 THERAPEUTIC TARGET FOR THE TREATMENT OF DIABETES MELLITUS PATIENTS IS <7% HBA1C, AND IN SELECTIVE PATIENTS <6.0%. PLEASE REFER TO [place] [employer]ATION DIABETIC CARE GUIDELINES FOR FURTHER INFORMATION. 71 CHOLESTEROL INTERPRETATION: Desirable: Less than 200 [...] Risk: LDL Greater than 189 MG/DL 74 Anion gap measurement may be of limited value in the presence of any alkalosis, especially in a combined acid base disorder. . 75 Note change in reference range as of 01/23/08. The change was based on recommendations from the [employer] Diabetes Association. 76 Because ethnic data is not always readily [...] 15-29 5 Kidney failure <15 (or dialysis) 77 * SERUM LEVELS OF PSA MEASURED USING THE BAKARI Templ[place]y ACCESS HYBRITECH IMMUNOASSAY SHOULD NOT BE INTERPRETED [...] change was based on recommendations from the [employer] Diabetes Association. 80 A metabolite of Naproxen, [...] 189 MG/DL 85 ---- RUN DATE: 06/10/09 [facility] NMI LIVE PAGE 1 RUN TIME: 1526 Specimen Inquiry RUN USER: INTERFACE -- Name: HUMA BLUE Status: REG REF Re06/08/09 Age/Sex: 73/M Unit#: [id number] Location: [facility] : 37 -- Specimen: [id number] SOUT Spec Date: 06/08/[address]: Clayton liang MD Spec Type: SURGICAL P Received: 06/09/09 Copies to: Yash Nevarez III, MD SPECIMEN [...] 06/10/09 1524 -- -- DEPARTMENT OF PATHOLOGY, [address] [place] [address] [facility] Permit #[id number] Brissa Cummings M.D. Radiation Officer Dir castor -- 86 * SERUM LEVELS OF PSA [...] change was based on recommendations from the [employer] Diabetes Association. 90 Please note change in [...] LEVELS OF PSA MEASURED USING THE BAKARI [place] ACCESS HYBRITECH IMMUNOASSAY SHOULD NOT BE INTERPRETED [...] LEVELS OF PSA MEASURED USING THE BAKARI [place] ACCESS HYBRITECH IMMUNOASSAY SHOULD NOT BE INTERPRETED ABSOLUTE EVIDENCE OF THE PRESENCE OR ABSENCE OF DISEASE. THE PSA VALUE SHOULD BE USED IN CONJUNCTION WITH OTHER PERTINENT CLINICAL DIAGNOSTIC PROCEDURES. Procedures Date Code Description Status 02/22/2018 89105 EKG Tracing & Interpretation Completed 12/09/2017 18106 ECHO Transthorasic Realtime 2D W Doppler & Color Flow Completed Hosp 02/14/2017 76070 Treadmill Interp/Report Only Completed 02/14/2017 01237 Stress Test Supervsn W/Out I/R Completed 02/06/2017 82430 EKG Tracing & Interpretation Completed 02/06/2017 99342 EKG Tracing & Interpretation Completed 01/25/2017 03536 ECHO Transthorasic Realtime 2D W Doppler & Color Flow Completed Hosp 12/27/2016 28889 Closed TX Phalanx finger/thumb shaft w/o manipulation Completed 09/01/2016 80723 ECHO Transthorasic Realtime 2D W Doppler & Color Flow Completed Hosp 08/22/2016 43147 EKG Tracing & Interpretation Completed 02/29/2016 23228 ECHO Transthoracic, Real-Time 2D With Doppler And Completed Color Flow 02/02/2016 06285 EKG Tracing & Interpretation Completed 10/11/2014 59686 ECHO Transthorasic Realtime 2D W Doppler & Color Flow Completed Hosp 06/05/2014 33081 EKG Tracing & Interpretation Completed 05/04/2014 29501 Xray Knee 3 Views Completed 05/04/2014 20131 Rad Exam; Knee, Ap&L Completed 02/06/2014 07027 Intravascular Blood Flow Velocity Completed 02/06/2014 00038 Left Heart Cath. Incl S/I Coronaries, Angio S/I V Gram Completed If Done 01/27/2014 34869 ECHO Transthoracic, Real-Time 2D With Doppler And Completed Color Flow 01/22/2014 82235 ECHO Stress Test Incl Perf Contiuous ekg Monitoring Completed W/Phys Superv 01/22/2014 41319 ECHO Stress Test Incl Perf Contiuous ekg Monitoring Completed W/Phys Superv 11/14/2013 81948 EKG Tracing & Interpretation Completed 10/06/2013 36316 Xray Knee 3 Views Completed 07/24/2013 91493 EKG Tracing & Interpretation Completed 07/19/2013 37927 EKG, Interpretation Only Completed 07/18/2013 52649 Percutaneous Transcatheter Placement Of Intracoronary Completed Stent 07/18/2013 49103 EKG, Interpretation Only Completed 07/18/2013 50256 Left Health Catheterization W/Inj For Left Completed Ventriculography,S&I 07/18/2013 64307 Cath PLMT&NJX L Ventriculog Img S&I Completed 07/18/2013 34493 Left Heart Cath. Incl S/I Coronaries, Angio S/I V Gram Completed If Done 07/18/2013 78418 Cardiac Cath,LT Hrtmincl Intraprocedural Ink LT Completed Ventricul Mammary 07/07/2013 16293594 Mammogram Completed 07/04/2013 84716 ECHO Transthorasic Realtime 2D W Doppler & Color Flow Completed Hosp 07/04/2013 29865 EKG Tracing & Interpretation Completed 07/02/2013 64952 Treadmill Interp/Report Only Completed 07/02/2013 01771 Stress Test Supervsn W/Out I/R Completed 06/23/2013 91608 EKG Tracing & Interpretation Completed 05/30/2013 11198 Rad Exam; Knee Comp Completed 04/24/2013 04321 Xray Knee 3 Views Completed 04/16/2013 11392 Revision TKA W Or W/O Allograft;Femoral & Entire Completed Tibial Component 04/16/2013 18922 Revision TKA W Or W/O Allograft;Femoral & Entire Completed Tibial Component 02/26/2013 00563 EKG Tracing & Interpretation Completed 01/29/2013 65127 ECHO Transthoracic, Real-Time 2D With Doppler And Completed Color Flow 01/21/2013 53486 Inject/Drain Joint/Bursa Major W/O US Completed 11/07/2012 47053 Xray Knee 3 Views Completed 11/07/2012 40316 Rad Exam; Knee, Ap&L Completed 08/14/2012 34176 TKR Total Knee Replacement Completed 08/14/2012 85152 TKR Total Knee Replacement Completed 06/08/2012 25550 Treadmill Interp/Report Only Completed 06/08/2012 82444 Stress Test Supervsn W/Out I/R Completed 06/08/2012 23122 EKG, Interpretation Only Completed 05/15/2012 86277 Arthroscopy,Knee,Meniscectomy Media & Lateral Completed 05/15/2012 93058 Arthroscopy,Knee,Meniscectomy Media & Lateral Completed 05/02/2012 29885 EKG Tracing & Interpretation Completed 04/16/2012 35346 Inject/Drain Joint/Bursa Major W/O US Completed 12/13/2011 45048774 Colonoscopy Completed 11/30/2011 19115 Polysomnography Sleep Staging 4+ Parameters W/Cpap Completed 09/28/2011 58668 Treadmill Interp/Report Only Completed 09/28/2011 75386 Stress Test Supervsn W/Out I/R Completed 09/06/2011 52549 Holter Monitoring 24 HR New Completed 09/04/2011 39745 ECHO Stress Test Incl Perf Contiuous ekg Monitoring Completed W/Phys Superv 07/21/2011 93886 EKG Tracing & Interpretation Completed 07/04/2011 23514 ECHO Transthorasic Realtime 2D W Doppler & Color Flow Completed Hosp 07/04/2011 02590 Pulse Wave/Continuous-Interp.RPT Completed 07/04/2011 52951 Color Flow Doppler/Interp & Reprt Completed 01/04/2011 88859 EKG Tracing & Interpretation Completed 03/25/2010 22243 Admin Of Inj Completed 12/15/2009 765059600 Diabetic Retinal Eye Exam Completed 06/08/2009 11057703 Colonoscopy Completed 08/05/2003 93381278 Colonoscopy Completed 03/31/1999 33034358 Colonoscopy Completed Encounters Type Date Location Provider Dx Diagnosis Office Visit 04/03/2018 [facility] Internal ROBERTH Crow R73.03 Prediabetes 2:20p Medicine - [address] K21.9 Gastro-esophageal reflux disease without esophagitis E78.5 Hyperlipidemia, unspecified 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 I10 Essential (primary) hypertension 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 Office 03/28/2018 [facility] Gastroenterology Mulu K21.9 Gastro-esophageal Visit 11:00a HERBER Blackwell reflux disease without esophagitis R13.10 Dysphagia, unspecified Z72.821 Inadequate sleep hygiene 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 other Hospitalists nontraumatic intracranial hemorrhage H53.8 Other visual disturbances I10 Essential (primary) hypertension E78.5 Hyperlipidemia, unspecified Office Visit 12/09/2017 Neuro[facility] Jamie H53.8 Other visual 7:00a David Haas M.D. disturbances I10 Essential (primary) hypertension Z86.73 Prsnl hx of TIA (TIA), and cereb infrc w/o resid deficits Z79.02 manager intermediate (current) use of antithrombotics/antiplatelets Office Visit 12/09/2017 [facility] I69.298 Other sequelae of 3:03p artemio Zuniga M.D. other Hospitalists nontraumatic intracranial hemorrhage H53.8 Other visual disturbances E11.9 Type 2 diabetes mellitus without complications F41.9 Anxiety disorder, unspecified F33.9 Major depressive disorder, recurrent, unspecified Office Visit 12/08/2017 Neurohospitalist Jamie H53.8 Other visual 7:00a David Haas M.D. disturbances I10 Essential (primary) hypertension Z86.73 Prsnl hx of TIA (TIA), and cereb infrc w/o resid deficits Z79.02 manager intermediate (current) use of antithrombotics/antiplatelets Office Visit 12/08/2017 [facility] H53.8 Other visual 3:03p artemio Zuniga, HVAC SERVICE TECH disturbances Hospitalists E78.5 Hyperlipidemia, unspecified E03.9 Hypothyroidism, unspecified F33.9 Major depressive disorder, recurrent, unspecified F41.9 Anxiety disorder, unspecified Office Visit 11/20/2017 2:40p [facility] Internal Chriss Quinteros R19.7 Diarrhea, Angelo Romero M.D.,FACP unspecified [place] E03.9 Hypothyroidism, unspecified Office Visit 10/19/2017 2:20p [facility] Internal Chriss Quinteros I10 Essential ( primary) Angelo Romero M.D.,FACP hypertension [address] F33.1 Major depressive disorder, recurrent, moderate E03.9 Hypothyroidism, unspecified Office Visit 09/19/2017 2:40p [facility] Internal Chriss Quinteros I10 Essential ( primary) Angelo Romero M.D.,FACP hypertension [address] F41.9 Anxiety disorder, unspecified Office Visit 03/21/2017 1:30p [facility]andr GDana I10 Essential ( primary) Medicine Of Katerina Simon M.D. 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 Office Visit 02/13/2017 2:33p [facility] Luis R07.9 Chest pain, Assoc,DEBORAH Ayala unspecified Hospitalists G47.33 Obstructive sleep apnea (adult) (pediatric) I25.110 [facility] heart disease of [place] cor art w unstable ang pctrs I10 Essential (primary) hypertension Office Visit 02/12/2017 2:30p [place] [facility] Javon Coleman, Z86.73 Prsnl hx of Services Of Katerina Brumfield TIA (TIA), and cereb infrc w/o resid deficits I10 Essential (primary) hypertension E78.5 Hyperlipidemia, unspecified Z79.02 penitentiary (current) use of antithrombotics/antiplatelets Office Visit 02/07/2017 2:00p [facility] Oscar Quinteros I15.0 Renovascular Angelo Romero M.D.,FACP hypertension [address] Z23 Encounter for immunization Office Visit 02/06/2017 1:30p [facility] DEBORAH Damon G45.8 Oth transient Of [facility] cerebral ischemic attacks and related synd I25.10 Athscl heart disease of [place] coronary artery w/o ang pctrs I10 Essential (primary) hypertension E78.5 Hyperlipidemia, unspecified Office Visit 01/31/2017 1:40p [facility] Internal Chriss Quinteros G45.8 Oth transient Wally Solis.D.,FACP cerebral Rd ischemic attacks and related synd I10 Essential (primary) hypertension E78.5 Hyperlipidemia, unspecified Office Visit 01/26/2017 12:56p [facility] Enoc Figueroa, G45.8 Oth transient Assoc,artemio Brumfield cerebral Hospitalists ischemic attacks and related synd E78.5 Hyperlipidemia, unspecified I25.10 Athscl heart disease of [place] coronary artery w/o ang pctrs I10 Essential (primary) hypertension Office 01/26/2017 Neurohospitalist Javon G45.9 Transient Visit 2:08p Clinic Brissa Coleman cerebral ischemic attack, unspecified I10 Essential (primary) hypertension Z79.02 manager intermediate (current) use of antithrombotics/antiplatelets Office 01/25/2017 Neurohospitalist Javon G45.9 Transient Visit 2:03p Clinic Brissa Coleman cerebral ischemic attack, unspecified I10 Essential (primary) hypertension Z79.02 penitentiary (current) use of antithrombotics/antiplatelets Office Visit 01/25/2017 [facility] Roby I63.9 Cerebral 12:55p Assoc,artemio Shaver, N.P. infarction, Hospitalists unspecified E78.5 Hyperlipidemia, unspecified I25.10 Athscl heart disease of [place] coronary artery w/o ang pctrs I10 Essential (primary) hypertension Office Visit 01/03/2017 10:30a [facility] Internal Chriss Quinteros I25.10 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 F33.1 Major depressive disorder, recurrent, moderate Office Visit 09/01/2016 11:17a [facility] Kecia Snowden, R42 Dizziness and Assoc,pc HVAC SERVICE TECH giddiness Hospitalists Z86.73 Prsnl hx of TIA (TIA), and cereb infrc w/o resid deficits I25.10 Athscl heart disease of [place] coronary artery w/o ang pctrs G47.33 Obstructive sleep apnea (adult) (pediatric) Office [facility]2016 [facility] Dizz[facility] and 11:16a Assoc,pc Hardeep, [facility] Hospitalists Z86.73 Prsnl hx of TIA (TIA), and cereb infrc w/o resid deficits I25.10 Athscl heart disease of [place] coronary artery w/o ang pctrs G47.33 Obstructive sleep apnea (adult) (pediatric) Office Visit 08/22/2016 [place] Qutaybeh S. I35.0 Nonrheumatic 3:00p Cardiology Brissa Hahn aortic (valve) stenosis I10 Essential (primary) hypertension I25.10 Athscl heart disease of [place] coronary artery w/o ang pctrs I34.0 Nonrheumatic mitral (valve) insufficiency Office Visit 02/02/2016 2:00p [place] [facility] Qutaybeh S. I10 Essential Brissa Hahn (primary) hypertension I25.10 Athscl heart disease of [place] coronary artery w/o ang pctrs I34.0 Nonrheumatic mitral (valve) insufficiency I35.0 Nonrheumatic aortic (valve) stenosis Office Visit 08/16/2015 8:45a Orthopedic Temi Rivera, Z96.652 Presence of left Services Of Brissa artificial knee C.M.A. joint Office Visit 06/01/2015 10:45a [place] [facility] Quirino Rodriguez I63.511 Cereb infrc d/t [...] Cerebral Infarc Office Visit 10/28/2014 Neurohospitalist Beck Milner 434.91 Occlusion 9:47a Clinic Cerebral Artery Unspec W/ Cerebral Infarc Office Visit 10/11/2014 Neurohospitalist Quirino Cerrato.91 Occlusion 3:00p David Giles M.D. Cerebral Artery Unspec W/ Cerebral Infarc 435.9 TIA Ischemia Cerebral Transient Unspec 414.01 Coronary Atherosclerosis [place] Office Visit 10/11/2014 7:08p [facility] Rosalee 434.91 Occlusion Assocartemio M.D. Cerebral Artery Hospitalists Unspec W/ Cerebral Infarc 401.9 Hypertension Unspec 244.9 Hypothyroidism Other Unspec Office Visit 10/10/2014 Neurohospitalist Quirino Rodriguez 434.91 Occlusion 2:34p Clinic Brissa Giles Cerebral Artery Unspec W/ Cerebral Infarc 435.9 TIA Ischemia Cerebral Transient Unspec Office Visit 10/10/2014 7:07p [facility] Loc 434.91 Occlusion Assoc,artemio Cordova M.D. Cerebral Artery Hospitalists Unspec W/ Cerebral Infarc 401.9 Hypertension Unspec 244.9 Hypothyroidism Other Unspec 272.4 Hyperlipidemia Other Unspec Office Visit 10/09/2014 7:06p [facility] Enoc Figueroa, 434.91 Occlusion Assartemio pride M.D. Cerebral Artery Hospitalists Unspec W/ Cerebral Infarc 401.9 Hypertension Unspec 244.9 Hypothyroidism Other Unspec 272.4 Hyperlipidemia Other Unspec Office Visit 06/05/2014 Sam Babin S. 414.01 Coronary 3:20p Santa Hahn M.D. Atherosclerosis [place] V45.82 Percutaneous Transluminal Coronary Angioplas Postsurg Status 401.1 Hypertension Benign 424.0 Mitral Valve Disorder Office Visit 05/04/2014 11:30a Orthopedic Temi 715.96 Osteoarthrosis Services Of Brissa Rivera Unspec Genlzd Or C.M.A. Localized Lower Leg 719.46 Pain Joint Lower Leg Office Visit 02/10/2014 Sam Babin S. 414.01 Coronary 5:00p Santa Hahn M.D. Atherosclerosis [place] V45.82 Percutaneous Transluminal Coronary Angioplas Postsurg Status 401.1 Hypertension Benign Office Visit 02/07/2014 Sam Babin S. 414.9 Ischemic Heart 10:03a Cardiology Brissa Hahn Disease Chronic Unspec Office Visit 02/06/2014 Sam Babin S. 794.39 Cardiovascular 3:22p Santa Hahn M.D. Study Other Abnormal 794.31 Electrocardiogram (ECG) (EKG) Abnormal 414.9 Ischemic Heart Disease Chronic Unspec Office Visit 01/28/2014 [place] Qumarshaeh S. 414.01 Coronary 1:20p Santa Hahn M.D. Atherosclerosis [place] 424.0 Mitral Valve Disorder 424.1 Aortic Valve Disorder V45.82 Percutaneous Transluminal Coronary Angioplas Postsurg Status Office Visit 01/22/2014 [place] Quariadneybeh S. 414.01 Coronary 11:30a Santa Hahn M.D. Atherosclerosis [place] 424.0 Mitral Valve Disorder 424.1 Aortic Valve Disorder V45.82 Percutaneous Transluminal Coronary Angioplas Postsurg Status Office Visit 11/14/2013 Sam Grubbsariadnemishaeh S. 414.01 Coronary 8:20a Santa Hahn M.D. Atherosclerosis [place] 424.0 Mitral Valve Disorder 397.0 Tricuspid Valve Disease 424.1 Aortic Valve Disorder 401.0 Hypertension Malignant 272.2 Hyperlipidemia Mixed Office Visit 10/06/2013 10:00a Orthopedic Services Temi Rivera, 719.46 Pain Joint Of C.M.A. MGlo Lower Leg 715.96 Osteoarthrosis Unspec Genlzd Or Localized Lower Leg Office Visit 07/24/2013 Sam Grubbstarun S. 414.01 Coronary 3:40p Santa Hahn M.D. Atherosclerosis [place] 424.0 Mitral Valve Disorder 397.0 Tricuspid Valve Disease 424.1 Aortic Valve Disorder 785.2 Murmur Cardiac Undiagnosed Office Visit 07/18/2013 11:30a Sam Babin S. 786.50 Pain Chest Brissa Hahn Unspec 786.05 Shortness Of Breath 794.39 Cardiovascular Study Other Abnormal Office Visit 07/04/2013 [place] Qutarun S. 414.01 Coronary 4:00p Santa Hahn M.D. Atherosclerosis [place] 786.50 Pain Chest Unspec 424.0 Mitral Valve Disorder 397.0 Tricuspid Valve Disease 424.1 Aortic Valve Disorder Office Visit 07/02/2013 9:30a Sam Babin S. 786.50 Pain Chest Brissa Hahn Unspec 414.9 Ischemic Heart Disease Chronic Unspec Office Visit 06/23/2013 [place] Qutarun S. 414.01 Coronary 1:40p Santa Hahn M.D. Atherosclerosis [place] 786.50 Pain Chest Unspec 424.0 Mitral Valve Disorder 397.0 Tricuspid Valve Disease 424.1 Aortic Valve Disorder 785.2 Murmur Cardiac Undiagnosed 782.3 Edema Office Visit 02/26/2013 [place] Olaf Rodriguez 414.01 Coronary 3:00p Cardiology Brissa Hahn Atherosclerosis [place] 412 Myocardial Infarction Old 424.1 Aortic Valve Disorder 424.0 Mitral Valve Disorder Office Visit 01/21/2013 9:15a Orthopedic Neymar Marrero, 996.78 Complication Due Services Of Brissa To Internal C.M.A. Orthopedic Device Implant Other 715.96 Osteoarthrosis Unspec Genlzd Or Localized Lower Leg V43.65 Knee Replacement By Other Means 996.77 Complication Due To Internal Joint Prosthesis Office Visit 01/07/2013 Leslee Marrero, 996.78 Complication Due To 9:30a Services Of CDanaMMaddi Brumfield Internal Orthopedic Device Implant Other Office Visit 08/17/2012 [facility] Patricia Whelan, 276.8 Hypopotassemia 1:23p Assoc,pc N.PDana Hospitalists 780.97 Altered Mental Status Office Visit 06/08/2012 11:51a [facility] Enoc Figueroa, 786.51 Pain Precordial Assoc,artemio Brumfield Hospitalists 401.9 Hypertension Unspec 272.2 Hyperlipidemia Mixed 285.9 Anemia Unspec Office Visit 06/07/2012 11:50a [facility] Cassidy 786.51 Pain Precordial Assoc,pc Micah Moeller Hospitalists 401.9 Hypertension Unspec 272.2 Hyperlipidemia Mixed 285.9 Anemia Unspec Office Visit 06/07/2012 [place] Olaf Rodriguez 414.01 Coronary 2:00p Cardiology Brissa Hahn Atherosclerosis [place] 401.1 Hypertension Benign 434.11 Cerebral Embolism W/ Cerebral Infarc Office Visit 05/02/2012 8:30a Pulverizer Feeder Internal Shauna Saira, 836.0 Dislocation Knee Medicine - N.P. Tear Of Medial [place] Cartilage Or Meniscus Curren 786.03 Apnea 414.01 Coronary Atherosclerosis [place] 401.1 Hypertension Benign 434.11 Cerebral Embolism W/ Cerebral Infarc 272.2 Hyperlipidemia Mixed V72.84 Examination Preoperative Unspec 244.9 Hypothyroidism Other Unspec Office Visit 04/29/2012 8:30a Orthopedic Neymar Marrero, 836.0 Dislocation Knee Services Of Brissa Tear Of Medial C.M.A. Cartilage Or Meniscus Curren Office Visit 04/16/2012 2:30p Orthopedic Neymar Marrero, 715.36 Osteoarthrosis Services Of Brissa Maldonadod Not Spec C.M.A. Prime Or 2Ndy Lower Leg 727.49 Cyst Synovial Other 719.06 Effusion Joint Lower Leg Office Visit 03/27/2012 3:40p [facility] Internal Yash Guerrero 729.5 Pain In Limb Angelo Nevarez M.D. [place] Office Visit 03/22/2012 10:20a [facility] Internal Yash uGerrero 719.46 Pain Joint Angelo Nevarez M.D. Lower Leg [place] 729.5 Pain In Limb Office Visit 10/19/2011 [facility] Oscar Guerrero 787.91 Diarrhea 10:20a Angelo Nevarez M.D. [place] Office Visit 10/06/2011 Sam Babin S. 414.01 Coronary 10:40a Cardiology Mita Hahn M.D. [place] 401.1 Hypertension Benign 272.4 Hyperlipidemia Other Unspec 424.0 Mitral Valve Disorder 424.1 Aortic Valve Disorder Office Visit 09/20/2011 2:20p [facility] Oscar Nevarez, 787.91 Diarrhea Angelo Pathak M.D. 434.11 Cerebral Embolism W/ Cerebral Infarc Office Visit 09/04/2011 Sam Babin S. 401.1 Hypertension 2:30p Santa Hahn M.D. Benign 414.01 Coronary Atherosclerosis [place] 794.31 Electrocardiogram (ECG) (EKG) Abnormal Office Visit 07/21/2011 Sam Qutarun S. 401.1 Hypertension 10:00a Santa Hahn M.D. Benign 272.2 Hyperlipidemia Mixed 414.01 Coronary Atherosclerosis [place] 794.31 Electrocardiogram (ECG) (EKG) Abnormal 424.0 Mitral Valve Disorder 424.1 Aortic Valve Disorder 434.11 Cerebral Embolism W/ Cerebral Infarc Office Visit 07/13/2011 10:00a Katerina Guerrero 434.11 Cerebral Angelo Nevarez M.D. Embolism W/ [place] Cerebral Infarc 401.1 Hypertension Benign 272.2 Hyperlipidemia Mixed 414.01 Coronary Atherosclerosis [place] Office Visit 01/04/2011 10:00a DO Not Use Pulverizer Feeder Yash E. V70.0 Examination AT Mynor Nevarez M.D. General Medical Routine AT [facility] 401.1 Hypertension Benign 414.01 Coronary Atherosclerosis [place] 272.0 Hypercholesterolemia Pure 790.21 Impaired Fasting Glucose 244.9 Hypothyroidism Other Unspec 724.1 Pain Thoracic Spine 530.81 Esophageal Reflux Office Visit 07/06/2010 10:20a DO Not Use Pulverizer Feeder Yash E. 401.1 Hypertension Benign AT Mynor Nevarez M.D. 414.01 Coronary Atherosclerosis [place] 272.0 Hypercholesterolemia Pure 790.21 Impaired Fasting Glucose Office Visit 02/16/2010 3:00p DO Not Use Pulverizer Feeder Yash E. 401.1 Hypertension Benign AT Mynor Nevarez M.D. 272.2 Hyperlipidemia Mixed 414.01 Coronary Atherosclerosis [place] 244.9 Hypothyroidism Other Unspec Office Visit 02/10/2010 11:00a DO Not Use Pulverizer Feeder Yash E. V72.81 Examination AT Mynor Nevarez M.D. Preoperative Cardiovascular 401.1 Hypertension Benign 272.2 Hyperlipidemia Mixed 414.01 Coronary Atherosclerosis [place] 244.9 Hypothyroidism Other Unspec Office Visit 05/04/2009 2:00p DO Not Use Pulverizer Feeder Yash E. 401.1 Hypertension Benign AT Mynor Nevarez M.D. 272.2 Hyperlipidemia Mixed 414.01 Coronary Atherosclerosis [place] 244.9 Hypothyroidism Other Unspec 311 Depressive Disorder Not Elsewhere Spec 787.20 Dysphagia, Unspecified Office Visit 03/30/2008 [place] [facility] Yash E. 465.9 URI Upper Respiratory 1:45p Assoc AT Brissa Nevarez Infections Acute Unspec [facility] [place] Office Visit 10/10/2007 [place] [facility] Yash E. 272.0 Hypercholesterolemia Pure 10:00a Assoc AT Brissa Nevarez [facility] 414.01 Coronary Atherosclerosis [place] 401.1 Hypertension Benign Office Visit 04/10/2007 10:45a [place] [facility] Yash E. 272.2 Hyperlipidemia Mixed Assoc AT Brissa Nevarez [facility] 244.9 Hypothyroidism Other Unspec 796.2 Blood Pressure Reading Elevated W/O Hypertension 414.01 Coronary Atherosclerosis [place] Office Visit 03/25/2007 [place] [facility] Yash E. 272.0 Hypercholesterolemia Pure 2:45p Assoc AT Brissa Nevarez [facility] 414.01 Coronary Atherosclerosis [place] V04.81 Need For Prophylactic Vaccination & Inoculation/Influenza Plan of Treatment Future Appointment(s):10/02/2018 2:40 pm - ROBERTH Crow at [facility] Internal Medicine - [address]06/28/2018 11:00 am - Mulu Blackwell NP at [facility] Goqgazrjdpfxzgho10/06/2018 3:15 pm - Javon Coleman M.D. at [place] [facility]05/01/2018 - Ritesh Sauceda, FNPG47.00 Insomnia, unspecifiedNew Medication:Trazodone HCL 50 mg - take 2 tablet by mouth every night at bedtime as needed insomniaComments:I sent Rx for Trazodone 2 tabs every night to [facility].Follow up:mid September for MedicareF41.9 Anxiety disorder, unspecifiedNew Medication:Lorazepam 0.5 mg - 1 tab by mouth 2x daily as needed for anxietyComments:We discussed that you should take the Lorazepam only 2 tabs daily as this medication can become less effective if taken more often.F33.1 Major depressive disorder, recurrent, moderateComments:We discussed that it would be good if you could engage in activities that you would like to be engages in. If you feel you feel your medication is not effective, please give me a call.E78.5 Hyperlipidemia, unspecifiedComments:Please continue on the [id number] Essential (primary) hypertensionComments:For your high blood pressure: Continue with your current medication.R73.03 PrediabetesComments: Discussed dietary intervention and role of exercise to prevent developing full blown diabetes. An A1C between 5.7 and 6.4 signals prediabetes.Your A1c is 6.2I recommend to have a nutritional counsellingReferral:[facility], [employer] Muff [employer]sembler
[2018-05-20 10:32] LABS: ABS Basophils 0 10^3/ul (0-0.2); ABS Eosinophils 0.1 10^3/ul (0-0.6); ABS Monocytes 0.5 10^3/ul (0-0.8); ABS Neutrophils 4.8 10^3/ul (1.5-7.7); ABS Nucleated RBC 0 10^3/ul; Eosinophil % 0.8 %; Hematocrit 39 % (42-52); Hemoglobin 13.2 g/dl (14.0-18.0); Lymphocyte % 15.9 %; Mean Corpuscular HGB Conc 34 g/dl (31-36); Mean Corpuscular Hemoglobin 31 pg (27-31); Mean Corpuscular Volume 91 fL (80-94); Mean Platelet Volume 8.8 fL (7.4-10.4); Nucleated Red Blood Cells % 0; Platelet Count 156 10^3/ul (150-450); Red Blood Count 4.31 10^6/ul (4.00-5.40); Red Cell Distribution Width 13 % (10.5-15); White Blood Count 6.4 10^3/ul (3.5-10.8)
[2018-05-20 10:40] LABS: INR 0.96 (0.77-1.02)
[2018-05-20 10:57] LABS: ALT 19 U/L (7-52); AST 20 U/L (13-39); Albumin 3.8 g/dL (3.2-5.2); Albumin/Globulin Ratio 1.5 (1-3); Alkaline Phosphatase 55 U/L (34-104); Anion Gap 6 mmol/L (2-11); BUN/Creatinine Ratio 23.5 (8-20); Blood Urea Nitrogen 19 mg/dL (6-24); CO2 Carbon Dioxide 29 mmol/L (22-32); Calcium 8.7 mg/dL (8.6-10.3); Chloride 107 mmol/L (101-111); EGFR Non-African American 91.5 (>60); Globulin 2.6 g/dL (2-4); Glucose 101 mg/dL (70-100); Potassium 3.7 mmol/L (3.5-5.0); Sodium 142 mmol/L (135-145); Total Protein 6.4 g/dL (6.4-8.9)
[2018-05-20 11:01] LABS: Alcohol < 10 mg/dL (<10)
[2018-05-20 12:51] LABS: Urine Appearance Cloudy; Urine Bilirubin Negative (Negative); Urine Blood Negative (Negative); Urine Color Yellow; Urine Glucose Negative (Negative); Urine Ketones Negative (Negative); Urine Nitrite Negative (Negative); Urine Protein Negative (Negative); Urine Specific Gravity 1.017 (1.010-1.030); Urine Urobilinogen Negative (Negative)
[2018-05-20 13:11] LABS: Barbiturates Urine Screen None Detected (None Detect); Benzodiazepine Urine Screen None Detected (None Detect); Urine Cannabinoids Screen None Detected (None Detect)
[2018-05-20 15:18] VITALS: BP 134/64
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
== END 2018-05-20 15:19 | disposition home or self-care (01) ==
LOC: ED 08:38
DX: R26.81 Unsteadiness on feet (principal); R00.1 Bradycardia, unspecified; I25.119 Atherosclerotic heart disease of native coronary artery with unspecified angina pectoris; I10 Essential (primary) hypertension; Z95.5 Presence of coronary angioplasty implant and graft; Z86.73 Personal history of transient ischemic attack (TIA), and cerebral infarction without residual deficits; Z96.652 Presence of left artificial knee joint; Z79.01 Long term (current) use of anticoagulants; Z79.82 Long term (current) use of aspirin; Z88.1 Allergy status to other antibiotic agents; Z88.5 Allergy status to narcotic agent; Z82.49 Family history of ischemic heart disease and other diseases of the circulatory system; Z87.891 Personal history of nicotine dependence
CPT/HCPCS: 36415; 70450; 71046; 80053; 80307; 80320; 81003; 83605; 84484; 85025; 85610; 93005; 96360; 96361; 99282; G0480

== ENCOUNTER 2018-07-01 11:12 | Observation (INO) | payer MEDICARE ==
[2018-07-01] MEDS ORDERED: NS 0.9% 1000 ML** 1,000 ML IV ONE (11:38)
--- NOTE | 2018-07-01 11:44 | ED ---
Neurological HPI - HPI Summary HPI Summary: Patient is a 83 y/o M presenting to ED via ambulance with complaints of confusion, unsteady gait, and left forearm numbness. Patient reports that he woke up at 0600 this morning and that around 0630 he began to experience unsteady gait and states that he was "feeling off". He reports that he was having some confusion while doing a crossword puzzle this morning and that he began to experience left hand numbness about 1.5 hours ago. Patient told his about these Sx, subsequently called EMS. In the room, patient reports that "I feel better". He states that numbness of left forearm is lesser but still present. EMS reports Hx of stroke and SD. He claims some facial droop when he talks but notes this is a residual from his prior stroke. Patient is on beta-marciano. On triage, pain is denied, nothing is noted to aggravate/ alleviate Sx. Home medications and allergies are reviewed. - History of Current Complaint Chief Complaint: EDWeakness Stated Complaint: WEAKNESS/CONFUSION Time Seen by Provider: 07/01/18 11:23 Hx Obtained From: Patient, EMS Onset/Duration: Started hours ago - unsteady gait 0630, numbness 1.5 hours ago, Still Present Timing: Constant Current Severity: None - pain denied Neurological Deficit Location: LUE - forearm Pain Intensity: 0 Pain Scale Used: 0-10 Numeric - 0/10 Character: Confusion, Other: - numbness and unsteady gait Aggravating: Nothing Alleviating: Nothing Associated Signs and Symptoms: Positive: Confusion, Numbness - left hand - Additional Pertinent History Primary Care Physician: [id number] - Allergy/Home Medications Allergies/Adverse Reactions: Allergies Allergy/AdvReac Type Severity Reaction Status Date / Time cephalexin Allergy Unknown Verified 05/23/18 12:43 Reaction Details morphine AdvReac Hallucinati Verified 05/23/18 12:43 ons Home Medications: Home Medications Atenolol TAB* [Tenormin TAB* 50 MG] 50 mg PO DAILY 07/01/18 [History Confirmed 07/01/18] LORazepam TAB(*) [Ativan 0.5 MG TAB (*)] 0.5 mg PO TID MDD 1.5 mg 07/01/18 [ History Confirmed 07/01/18] Levothyroxine TAB* [Synthroid TAB*] 125 mcg PO DAILY 07/01/18 [History Confirmed 07/01/18] Lisinopril TAB* [Prinivil TAB*] 10 mg PO DAILY 07/01/18 [History Confirmed 07/01] Omeprazole CAP (NF) [Prilosec CAP* 20 MG] 20 mg PO DAILY 07/01/18 [History Confirmed 07/01/18] amLODIPine TAB* [Norvasc 5 mg TAB*] 10 mg PO DAILY 07/01/18 [History Confirmed 07/01/18] PMH/Surg Hx/FS Hx/Imm Hx Endocrine/Hematology History: Reports: Hx Anticoagulant Therapy - plavix and ASA , Hx Thyroid Disease, Hx Anemia - SLIGHT Denies: Hx Diabetes Cardiovascular History: Reports: Hx Angina, Hx Coronary Artery Disease, Hx Hypercholesterolemia, Hx Hypertension, Hx Myocardial Infarction Denies: Hx Congestive Heart Failure, Hx Pacemaker/ICD, Other Cardiovascular Problems/Disorders Respiratory History: Reports: Hx Sleep Apnea - has CPAP Denies: Hx Asthma, Hx Chronic Obstructive Pulmonary Disease (COPD), Other Respiratory Problems/Disorders GI History: Reports: Hx Gastroesophageal Reflux Disease, Hx Ulcer - Gastric, Other GI Disorders - ? gerd History: Reports: Other Problems/Disorders - ENLARGE PROSTATE Denies: Hx Renal Disease Musculoskeletal History: Reports: Hx Arthritis - LEFT KNEE, Hx Osteoporosis - LEFT KNEE, Other Musculoskeletal History - knee surgery Sensory History: Reports: Hx Cataracts, Hx Contacts or Glasses, Hx Hearing Aid, Other Sensory Impairments - left visual cut after CVA Opthamlomology History: Reports: Hx Cataracts, Hx Contacts or Glasses, Other Sensory Impairments - left visual cut after CVA Neurological History: Reports: Hx CVA - stroke 2011 and 10/2014 - Lt deficits, Other Neuro Impairments/Disorders - CVA Denies: Hx Dementia, Hx Seizures Psychiatric History: Reports: Hx Anxiety - ONCE IN A WHILE Denies: Hx Panic Disorder, Hx Substance Abuse - Surgical History Surgery Procedure, Year, and Place: RIGHT ENDAREDECTOMY; CARDIAC STENTS PLACED; RIGHT SHOULDER ROTATOR CUFF REPAIR; PARTIAL THYROIDECTOMY; LEFT KNEE REPLACEMENT ; RIGHT BUNIONECTOMY; RIGHT KNEE ARTHROSCOPE; Hx Anesthesia Reactions: No Infectious Disease History: No Infectious Disease History: Reports: Hx Shingles - 30 years ago Denies: Hx Clostridium Difficile, Hx Hepatitis, Hx Human Immunodeficiency Virus (HIV), Hx of Known/Suspected MRSA, Hx Tuberculosis, Hx Known/Suspected VRE , Hx Known/Suspected VRSA, History Other Infectious Disease, Traveled Outside the [place] in Last 30 Days - Family History Known Family History: Positive: Cardiac Disease - Social History Alcohol Use: None Hx Substance Use: No Substance Use Type: Reports: None Hx Tobacco Use: Yes Smoking Status (MU): Former Smoker Type: Cigarettes Amount Used/How Often: 3 packs a day 39 years ago Have You Smoked in the Last Year: No Review of Systems Negative: Fever - on vitals, temp is 98.4 F Neurological: Other - POSITIVE - UNSTEADY GAIT, CONFUSION Positive: Numbness - forearm All Other Systems Reviewed And Are Negative: Yes Physical Exam - Summary Physical Exam Summary: Appearance: Well appearing, no pain distress Skin: warm, dry, reflects adequate perfusion Head/face: normal Eyes: EOMI, DEBBY ENT: normal Neck: supple, non-tender Respiratory: CTA, breath sounds present Cardiovascular: RRR, pulses symmetrical Abdomen: non-tender, soft Musculoskeletal: normal, strength/ROM intact Neuro: normal, sensory motor intact, A&Ox3, GCS 15, NIH 0 Triage Information Reviewed: Yes Vital Signs On Initial Exam: Initial Vitals Temp Pulse Resp BP Pulse Ox 98.4 F 51 16 120/69 98 07/01/18 11:15 07/01/18 11:15 07/01/18 11:15 07/01/18 11:15 07/01/18 11:15 Vital Signs Reviewed: Yes Diagnostics - Vital Signs Vital Signs Temp Pulse Resp BP Pulse Ox 07/01/18 11:15 98.4 F 51 16 120/69 98 - Laboratory Result Diagrams: 07/01/18 12:04 07/01/18 11:17 Lab Statement: Any lab studies that have been ordered have been reviewed, and results considered in the medical decision making process. - Radiology cxr Radiology Interpretation Completed By: Radiologist Summary of Radiographic Findings: IMPRESSION: NO ACTIVE CARDIOPULMONARY DISEASE. THIS REPORT WAS REVIEWED BY ED PHYSICIAN. - CT brain ct CT Interpretation Completed By: Radiologist Summary of CT Findings: IMPRESSION: 1. NO EVIDENCE FOR GROSS ACUTE INFARCT, MASS EFFECT OR HEMORRHAGE. 2. FINDINGS SUGGESTIVE OF MODERATE TO SEVERE CHRONIC SMALL VESSEL ISCHEMIC CHANGES. 3. OLD RIGHT PARIETAL LOBE INFARCT. THIS REPORT WAS REVIEWED BY ED PHYSICIAN. head/neck cta CT Interpretation Completed By: Radiologist Summary of CT Findings: CTA HEAD/NECK IMPRESSION: 1. ATHEROMATOUS DISEASE. 2. 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 3. NO INTERNAL CAROTID ARTERY STENOSIS BY NASCET CRITERIA. 4. NO ANEURYSM, VASCULAR MALFORMATION, OCCLUSION, OR STENOSIS OF THE VISUALIZED. INTRACRANIAL CIRCULATION.. 5. CHRONIC SMALL VESSEL ISCHEMIC CHANGE. 6. AGAIN NOTED IS ASYMMETRY OF THE MUCOSA OF THE OROPHARYNX WITH EFFACEMENT OF THE LEFT. VALLECULA. RECOMMEND CORRELATION WITH DIRECT VISUALIZATION TO EXCLUDE PHARYNGEAL MUCOSAL. NEOPLASM. THIS REPORT WAS REVIEWED BY ED PHYSICIAN. - EKG 1205 Cardiac Rate: Bradycardia - rate of 48 BPM EKG Rhythm: Sinus Bradycardia Summary of EKG Findings: EKG showed sinus bradycardia with rate of 48 BPM, no acute changes. NIH Scale - NIH Scale Level of Consciousness: Alert/Keenly Responsive Ask Patient the Month and His/Her Age: Both Correct Ask Pt to Open/Close Eyes and Research Animal Attendant/Release Non-Paretic Hand: Both Correctly Best Gaze (Only Horizontal Eye Movement): Normal Visual Field Testing: No Visual Loss Facial Paresis-Pt to Smile & Close Eyes or Grimace Symmetry: Normal/Symmetrical Motor Function - Right Arm: No Drift-Holds 10 Seconds Motor Function - Left Arm: No Drift-Holds 10 Seconds Motor Function - Right Leg: No Drift-Holds 10 Seconds Motor Function - Left Leg: No Drift-Holds 10 Seconds Limb Ataxia-Must be out of Proportion to Weakness Present: Absent Sensory (Use Pinprick to Test Arms/Legs/Trunk/Face): Normal Best Language (Describe Picture, Name Items): No Aphasia Dysarthria (Read Several Words): Normal Extinction and Inattention: No Abnormality Total Score: 0 Course/Dx - Course Course Of Treatment: Patient is a 83 y/o M presenting to ED via ambulance with complaints of confusion, unsteady gait, and left forearm numbness. Patient reports that he woke up at 0600 this morning and that around 0630 he began to experience unsteady gait and states that he was "feeling off". He reports that he was having some confusion while doing a crossword puzzle this morning and that he began to experience left hand numbness about 1.5 hours ago. Patient told his about these Sx, subsequently called EMS. In the room, patient reports that "I feel better". He states that numbness of left forearm is lesser but still present. EMS reports Hx of stroke and SD. He claims some facial droop when he talks but notes this is a residual from his prior stroke. Patient is on beta-marciano. Physical exam is normal, GCS 15, NIH 0. Bloodwork obtained. During ED course, patient received fluids. EKG showed sinus bradycardia with rate of 48 BPM, no acute changes. BRAIN CT IMPRESSION: 1. NO EVIDENCE FOR GROSS ACUTE INFARCT, MASS EFFECT OR HEMORRHAGE. 2. FINDINGS SUGGESTIVE OF MODERATE TO SEVERE CHRONIC SMALL VESSEL ISCHEMIC CHANGES. 3. OLD RIGHT PARIETAL LOBE INFARCT. CXR IMPRESSION: NO ACTIVE CARDIOPULMONARY DISEASE. Patient's case was discussed with Dr. Villela at 1308, Dr. Villela accepts for admission. CTA HEAD/NECK IMPRESSION: 1. ATHEROMATOUS DISEASE. 2. 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 3. NO INTERNAL CAROTID ARTERY STENOSIS BY NASCET CRITERIA. 4. NO ANEURYSM, VASCULAR MALFORMATION, OCCLUSION, OR STENOSIS OF THE VISUALIZED. INTRACRANIAL CIRCULATION.. 5. CHRONIC SMALL VESSEL ISCHEMIC CHANGE. 6. AGAIN NOTED IS ASYMMETRY OF THE MUCOSA OF THE OROPHARYNX WITH EFFACEMENT OF THE LEFT. VALLECULA. RECOMMEND CORRELATION WITH DIRECT VISUALIZATION TO EXCLUDE PHARYNGEAL MUCOSAL. NEOPLASM. 1411 - patient's case was discussed with Dr. Milner. - Differential Dx Differential Diagnoses Neuro: Positive: Cerebrovascular Accident, Intracranial Bleed, Transient Ischemic Attack - Diagnoses Provider Diagnoses: TIA (transient ischemic attack) - Physician Notifications Discussed Care Of Patient With: Bunny Villela Time Discussed With Above Provider: 13:08 Instructed by Provider To: Other - Patient's case was discussed with Dr. Villela at 1308, Dr. Villela accepts for admission. 1411 - patient's case was discussed with Dr. Milner. - Critical Care Time Critical Care Time: 30-74 min Discharge - Sign-Out/Discharge Documenting (check all that apply): Patient Departure - admit - Discharge Plan Condition: Stable Disposition: ADMITTED TO [facility] Referrals: Chriss Romero MD [Primary Care Provider] - - Billing Disposition and Condition Condition: STABLE Disposition: Admitted to [facility] - Attestation Statements Document Initiated by Scribe: Yes Documenting Scribe: LUCIANA COLLADO Provider For Whom Scribe is Documenting (Include Credential): LINN QUICK MD Scribe Attestation: LUCIANA Null , scribed for LINN QUICK MD on 07/01/18 at 1505. Scribe Documentation Reviewed: Yes Provider Attestation: The documentation as recorded by the scribe, LUCIANA COLLADO accurately reflects the service I personally performed and the decisions made by me, LINN QUICK MD Status of Scribe Document: Viewed
--- OUTSIDE RECORDS SUMMARY | 2018-07-01 12:18 | XMS REPORT | Continuity of Care Document ---
:1935 External Reference #:[id number] Author Name Dao Saldañahne Care Team Providers Name Role Phone Chriss Romero MD Primary Care Physician Unavailable Payers Type Date Identification Numbers Payment Provider Subscriber Effective: Policy Number: [id number] Medicare Huma Blue 2001 PayID: [id number] [address] [place] [address] Policy Number: [id number] [facility] Huma Blue PayID: [id number] [address] [place] [address] Expires: 2009 Policy Number: [id number] [facility] Huma Blue PayID: [id number] [address] [place] [address] Advance Directives Type Date Description Status Comment [...] Occupation Retired 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 Recreational Drug Use Denies Drug Use Smoking Status Reviewed: 06/28/18 Patient is a former patient quit when [...] Zsofia 2017 s tablet by Sohail, mouth LOAN ADVISER every night at bedtime as needed insomnia Lorazepam 05/01/ Active Tablets 0.5mg 60tabs 1 tab by F41.9 Zsofia 2018 mouth 2x Sohail, daily as LOAN ADVISER needed for anxiety Omeprazole 03/28/ Active Capsules 20mg 90caps 1 by mouth [address]ulu [address] DR every day HERBER Blackwell Levothyroxine 11/08/ Active Tablets 125mcg 90tabs take 1 Ramila Sodium 2018 tablet by Cotton, mouth M.D. every day Cpap Mask And 08/16/ Active Device cpap R06.81 [facility] 2018 supplies - jayne Cabrera M.D.,FACP cushion, tubing, filters, for sleep apnea R06.02 Clopidogrel 03/14/2017 Active Tablets 75mg 90tabs Take 1 Ramila Bisulfate Tablet By Brissa Mansfield Mouth Every Day Atenolol 02/16/2017 Active Tablets 50mg 90tabs Take 1 Yash Brooke. Tablet By Brissa Nevarez Mouth Every Day Proscar Active Tablets 5mg 1 by mouth Unknown every day Flomax Active Capsules 0.4mg 90caps 1 by mouth Zsofia at bedtime Sohail, [facility] Escitalopram Active Tablets 10mg Take 1 F33. Unknown Oxalate Tablet By 1 Mouth Every Day I69.315 Lisinopril Active Tablets 10mg 90tabs Take 1 Tablet Zsofia By Mouth Sohail, Every Day LOAN ADVISER Atorvastatin Active Tablets 80mg 30tabs Take 1 Tablet E7 Zsofia Calcium By Mouth 8. Sohail, Every Day 5 LOAN ADVISER Stool Softener Active Capsules 100mg 1 by mouth Unknown every day Lisinopril 09/19/2017 - Hx Tablets 20mg 90tabs 1 by mouth Chriss 11/20/2017 every day Aldair Romero M.D.,[facility] Levothyroxine 09/10/2017 - Hx Tablets 137mcg 30tabs 1 by mouth Seven- Harrison Sodium 11/08/2017 every day Aldair Romero M.D.,[facility] Amlodipine 09/10/2017 - Hx Tablets 10mg 90tabs 1 by mouth Chriss Besylate 06/25/2018 every day Aldair Romero M.D.,[facility] Omeprazole 02/15/2017 - Hx Capsules DR 20mg 30caps 1 by mouth Other 11/20/2017 every day Ordering Provider Aripiprazole 02/15/2017 - Hx Tablets 2mg 1/2 tab q day Other 09/10/2017 Ordering Provider Amlodipine 02/07/2017 - Hx Tablets 5mg 30tabs Take 1 Tablet Chriss Besylate 09/10/2017 By Mouth Aldair Romero, Every Day Brissa,[facility] Ezetimibe 02/06/2017 - Hx Tablets 10mg 30tabs 1 tab by E7 Qutaybeh 11/20/2017 mouth every 8. S. day. 5 Brissa Hahn Lisinopril 01/31/2017 - Hx Tablets 10mg 90tabs take 1 tablet Chriss 09/19/2017 by mouth Aldair Romero every day Brissa,IGLESIA Levothyroxine 01/30/2017 - Hx Tablets 150mcg 30tabs 1 by mouth Seven- [place] Sodium 09/10/2017 every day Aldair Romero M.D.,[facility] Bupropion HCL 01/30/2017 - Hx Tablets ER 150mg 30tabs 1 by mouth Other ER (SR) 12/12/2017 12HR every day Ordering Provider Fluoxetine HCL 01/03/2017 - Hx Tablets 20mg 3 by mouth Chriss 01/30/2017 every day Aldair Romero M.D.,[facility] Fluconazole 12/29/2016 - Hx Tablets 150mg 1tabs take one pill Mellissa 01/30/2017 by mouth Brissa Harvey Finasteride 06/05/2014 - Hx Tablets 5mg 90tabs 1 by mouth Other 06/05/2014 every day Ordering Provider Aspirin 81 07/23/2013 - Hx Tablets DR 81mg po qd Other 02/03/2015 Ordering Provider Zoloft 07/15/2013 - Hx Tablets 100mg 1 po qd Yash EDana 11/14/2013 Brissa Nevarez Oxycodone HCL 04/08/2013 - [...] po q4-6h Neymar 02/26/2013 g prn pain Janes, M.D. Ultram 03/26/2012 - Hx Tablets 50mg 40tabs 1 po qid prn Yash Guerrero 05/02/2012 Brissa Nevarez Zoloft 02/12/2012 - Hx Tablets 50mg 90tabs 1 po qd Yash EDana 07/15/2013 Brissa Nevarez Zoloft 10/06/2011 - Hx Tablets 100mg 1/2 po qd Yash EDana 02/12/2012 Brissa Nevarez Levoxyl 07/24/2011 - Hx Tablets 150mcg 90tabs po q day Yash E. 01/30/2017 Brissa Nevarez Zofran 07/10/2011 - Hx [...] Tablets 20mg 90tabs 1 po qd Yash EDana 02/14/2010 take with loly Nevarez M.D. of simvastatin 40 mgm Zithromax Z-Jose Guadalupe 03/30/2008 - Hx Tablets 250mg 1Pack as per Yash Guerrero 05/04/2009 luis antonio Nevarez M.D. Atenolol 10/10/2007 - Hx Tablets 25mg 90tabs 1 po qd Yash EDana 02/16/2017 Brissa Nevarez Simvastatin 10/10/2007 - Hx Tablets 40mg 90tabs 1 po qhs Yash EDana 02/14/2010 (take with brunilda Nevarez M.D. 40 [...] - Hx Tablets 20mg 1Tab PO hs [facility], 10/10/2007 MD Kristian Omeprazole - Hx Capsules [...] Hx Tab unk name, prn Unknown 07/15/2013 Trazodone HCL - Hx Tablets 50mg 90tabs 1 tablet at Balwinder Terry 06/26/2018 bedtime Aldair Romero M.D.,FACP Potassium - Hx Capsules ER 20Meq 90caps [...] 1 by mouth Unknown 02/01/2016 every day Aspirin - Hx Tablets DR 325mg 1 by mouth Unknown 06/12/2018 every day Fluoxetine HCL - Hx Capsules 60mg 1 by mouth Unknown 01/03/2017 every day Lisinopril - Hx Tablets 5mg 1 by mouth Unknown 01/31/2017 every day Lorazepam - Hx Tablets 0.5mg 45tabs 1 tab by F4 Chriss 05/01/2018 mouth twice a 1. D. Nick, jennie as needed 9 M.D.,FACP Iron Supplement - [...] Chriss 11/20/2017 Capsule By Beatriz Cabrera Every M.DDana,FACP Day Amphetamine-Dex - Hx Tablets 15mg 1 [...] Code Status Date Vaccine Reaction Lot # [id number] Given 02/28/2018 Fluzone High Dose 12744 Given 10/16/2017 Zoster (Shingles) Vaccine (HZV), Recombinant, Subunit, Adjuvanted 98627 Given 02/07/2017 Influenza Virus Vaccine, [id number] Quadrivalent, Split, Preservative Free 31080 Given 02/07/2017 Pneumococcal Conjugate Vaccine pt tolerated well [id number] Valent For Intramuscular Use Q2037 Given 03/09/2012 Fluvirin Im 3Yrs And Older [id number] Given 02/17/2011 Fluzone Vaccine [id number] 87791 Given 03/25/2010 Influenza Virus 3Yrs & Over [id number] 06634 Given 03/25/2007 Influenza Virus 3Yrs & Over 31442 Given 03/25/2007 Influenza Virus 3Yrs & Over 32437 Given 10/12/2002 Td (History By Patient) 32210 Given 11/11/2001 Pneumovax (History By Patient) Vital Signs Date Vital Result Comment 06/28/2018 11:04am Height 65 inches 5'5" Weight 190.38 lb Heart Rate 60 /min BP Systolic 129 mmHg BP Diastolic 60 mmHg Respiratory Rate 18 /min Body Temperature 97.0 F O2 % BldC Oximetry 98 % BMI (Body Mass Index) 31.7 kg/m2 06/10/2018 1:27pm Height 65 inches 5'5" Weight 185.38 lb Heart Rate 68 /min BP Systolic Sitting 126 mmHg BP Diastolic Sitting 66 mmHg Respiratory Rate 20 /min BMI (Body Mass Index) 30.8 kg/m2 05/09/2018 3:23pm Height 65 inches 5'5" Weight [...] Date Facility Test Result H/L Range Note Urine Drug 05/20/2018 [facility] Amphetamine Ur None Detected None Detect SCR ED & [address] [place] [address] [phone] Barbiturates Urine Screen None Detected None Detect Benzodiazepine Urine Screen None Detected None Detect Urine Cannabinoids Screen None Detected None Detect Urine Cocaine Screen None Detected None Detect Urine Opiates Screen None Detected None Detect Urine Phencyclidine Screen None Detected None Detect 1 CBC Auto Diff 05/20/2018 [facility] White Blood 6.4 10^3/uL N 3.5-10.[address] [place] [address] [phone] Red Blood Count 4.31 10^6/uL N 4.00-5.40 Hemoglobin 13.2 g/dL Low 14.0-18.0 Hematocrit 39 % Low 42-52 Mean Corpuscular Volume 91 fL N 80-94 Mean Corpuscular Hemoglobin 31 pg N 27-31 Mean Corpuscular HGB Conc 34 g/dL N 31-36 Red Cell Distribution Width 13 % N 10.5-15 Platelet Count 156 10^3/uL N 150-450 Mean Platelet Volume 8.8 fL N 7.4-10.4 Abs Neutrophils 4.8 10^3/uL N 1.5-7.7 Abs Lymphocytes 1.0 10^3/uL N 1.0-4.8 Abs Monocytes 0.5 10^3/uL N 0-0.8 Abs Eosinophils 0.1 10^3/uL N 0-0.6 Abs Basophils 0 10^3/uL N 0-0.2 Abs Nucleated RBC 0 10^3/uL Granulocyte % 75.7 % Lymphocyte % 15.9 % Monocyte % 7.4 % Eosinophil % 0.8 % Basophil % 0.2 % Nucleated Red Blood Cells % 0 Inr/Protime 05/20/2018 [facility] Inr 0.96 N 0.77-1.02 [address] [place] [address] [phone] Laboratory test 05/20/2018 [facility] Lactic Acid 1.1 mmol/L N 0.5-2.0 2 finding [address] [place] [address] [phone] Troponin-I (TnI) 0.00 ng/mL <0.04 3 Comp Metabolic Panel 05/20/2018 [facility] Sodium 142 mmol/L N 135-145 [address] [place] [address] [phone] Potassium 3.7 mmol/L N 3.5-5.0 Chloride 107 mmol/L N 101-111 Co2 Carbon Dioxide 29 mmol/L N 22-32 Anion Gap 6 mmol/L N 2-11 Glucose 101 mg/dL High 70-100 Blood Urea Nitrogen 19 mg/dL N 6-24 Creatinine 0.81 mg/dL N 0.67-1.17 BUN/Creatinine Ratio 23.5 High 8-20 Calcium 8.7 mg/dL N 8.6-10.3 Total Protein 6.4 g/dL N 6.4-8.9 Albumin 3.8 g/dL N 3.2-5.2 Globulin 2.6 g/dL N 2-4 Albumin/Globulin Ratio 1.5 N 1-3 Total Bilirubin 0.40 mg/dL N 0.2-1.0 Alkaline Phosphatase 55 U/L N 34-104 Alt 19 U/L N 7-52 Ast 20 U/L N 13-39 Egfr Non- 91.5 >60 Egfr 110.7 >60 4 Laboratory test 05/20/2018 [facility] Alcohol < 10 mg/dL N < 10 finding [address] [place] [address] [phone] Urinalysis Profile 05/20/2018 [facility] Urine Color Yellow [address] [place] [address] [phone] Urine Appearance Cloudy Urine Specific Eden 1.017 N 1.010-1.030 Urine pH 7.0 N 5-9 Urine Urobilinogen Negative Negative Urine Ketones Negative Negative Urine Protein Negative Negative Urine Leukocytes Negative Negative Urine Blood Negative Negative Urine Nitrite Negative Negative Urine Bilirubin Negative Negative Urine Glucose Negative Negative Laboratory test 03/06/2018 [facility] TSH (Thyroid 0.60 mcIU/mL N 0.34-5.[address] Stim Horm) [place] [address] [phone] Hemoglobin A1c (Glyco HGB) 6.2 % High 4.0-5.6 5 Laboratory test 01/01/2018 [facility] TSH (Thyroid 0.83 mcIU/mL N 0.34-5.[address] Stim Horm) [place] [address] [phone] Hemoglobin A1c (Glyco HGB) 6.1 % High 4.0-5.6 6 Inr/Protime 12/08/2017 [facility] Inr 0.94 N 0.77-1.02 [place] [address] [phone] CBC Auto Diff 12/08/2017 [facility] White Blood 5.3 10^3/uL N 3.5-10.8 [place] [address] [phone] Red Blood Count 4.54 10^6/uL N 4.00-5.40 [...] Blood Cells % 0 Laboratory test 12/08/2017 [facility] Lactic Acid 1.5 mmol/L N 0.5-2.0 7 finding [address] [place] [address] [phone] Comp Metabolic 12/08/2017 [facility] Sodium 140 mmol/L N 135- 145 Panel [address] [place] [address] [phone] Potassium 3.4 mmol/L Low 3.5-5.0 Chloride 100 [...] Egfr Non- 86.5 >60 Egfr 104.7 >60 8 Laboratory test 12/08/2017 [facility] Troponin-I (TnI) 0.00 ng/ mL <0.04 finding [address] [place] [address] [phone] TSH (Thyroid Stim Horm) 0.75 mcIU/mL N 0.34-5.60 Magnesium 2.1 mg/dL N 1.9-2.7 Hemoglobin A1c (Glyco HGB) 6.6 % High 4.0-5.6 9 Urine Culture And 12/08/2017 [facility] Urine Culture SEE RESULT [address] [place] [address] [phone] Urinalysis Profile 12/08/2017 [facility] [place] [address] [phone] Urine Appearance Cloudy Urine Specific Eden 1.016 N 1.010-1.030 Urine pH 7.0 N [...] Epithelial Cell Present Abnormal Absent Laboratory test 11/21/2017 [facility] Stool Culture SEE RESULT 11, [address] [place] [address] [phone] C Difficile PCR SEE RESULT BELOW 13 Stool Calprotectin 293 g/G Abnormal 14 O&P Ova & Parasites Screen SEE RESULT BELOW 15 Laboratory test 11/02/2017 [facility] TSH (Thyroid 0.18 Low 0.34-5.[address] Stim Horm) mcIU/[place] [address] [phone] Hemoglobin A1c (Glyco HGB) 6.3 % High 4.0-5.6 16 Comp Metabolic 09/17/2017 [facility] Potassium 3.3 mmol/L Low 3.5-5.[address] [place] [address] [phone] Chloride 105 mmol/L N 101-111 Co2 Carbon [...] Egfr Non- 85.4 >60 Egfr 109.8 >60 17 Sodium 142 mmol/L N 139-145 Anion Gap 7 mmol/L N 2-11 Laboratory test 09/17/2017 [facility] Troponin-I (TnI) 0.01 ng/ mL <0.[address] [place] [address] [phone] TSH (Thyroid Stim Horm) 0.02 mcIU/mL Low 0.34-5.60 CBC Auto Diff 09/17/2017 [facility] White Blood 6.5 10^3/uL N 3.5-10.[address] [place] [address] [phone] Red Blood Count 4.56 10^6/uL N 4.0-5.4 [...] Red Blood Cells % 0.1 Laboratory test 09/17/2017 [facility] Lactic Acid 0.7 mmol/L N 0.5-2.0 [address] [place] [address] [phone] Lipid Profile 08/30/2017 [facility] Triglycerides 79 mg/dL 19 (Trig/Chol/HDL) [address] [place] [address] [phone] Cholesterol 122 mg/dL 20 HDL Cholesterol 43.4 mg/dL 21 LDL Cholesterol 63 mg/dL 22 Basic Metabolic Panel 08/30/2017 [facility] Sodium 142 mmol/L N 139-[address] [place] [address] [phone] Potassium 3.6 mmol/L N 3.5-5.0 Chloride 104 mmol/L N 101-111 Co2 Carbon Dioxide 30 mmol/L N 22-32 Anion Gap 8 mmol/L N 2-11 Glucose 123 mg/dL High 70-100 Blood Urea Nitrogen 17 mg/dL N 6-24 Creatinine 0.94 mg/dL N 0.67-1.17 BUN/Creatinine Ratio 18.1 N 8-20 Calcium 8.8 mg/dL N 8.6-10.3 Egfr Non- 77.0 >60 Egfr 99.1 >60 23 Laboratory test 08/30/2017 [facility] Vitamin B12 310 pg/mL N 180-914 [address] [place] [address] [phone] TSH (Thyroid Stim Horm) 0.15 mcIU/mL Low 0.34-5.60 25 Laboratory test 04/17/2017 [facility] Renin <0.6 ng/mL/h 26 finding [address] [place] [address] [phone] Laboratory test 04/17/2017 [facility] Renin <0.6 ng/mL/h [address] [place] [address] [phone] Laboratory test 02/13/2017 [facility] Lactic Acid 1.3 mmol/L N 0.5-2. 28 finding [address] [address] [phone] CBC Auto Diff 02/13/2017 [facility] White Blood 5.9 10^3/uL N 3.5-[address] Count .8 [place] [address] [phone] Red Blood Count 4.47 10^6/uL N 4.0-5.4 [...] % 0.1 N Comp Metabolic Panel 02/13/2017 [facility] Sodium 140 mmol/L N 133-[address] [place] [address] [phone] Potassium 3.7 mmol/L N 3.5-5.0 Chloride 104 [...] 86.7 N >60 Egfr 111.5 N >60 29 Laboratory test 02/13/2017 [facility] Troponin-I (TnI) 0.00 ng/ mL N <0.04 finding [address] [place] [address] [phone] Lipid Profile 02/13/2017 [facility] Triglycerides 80 mg/dL N 30 (Trig/Chol/HDL) [address] [place] [address] [phone] Cholesterol 93 mg/dL N 31 HDL Cholesterol 36.8 mg/dL N 32 LDL Cholesterol 40 mg/dL N 33 Basic Metabolic Panel 02/01/2017 [facility] Sodium 140 mmol/L N 133-145 [address] [place] [address] [phone] Potassium 3.9 mmol/L N 3.5-5.0 Chloride 103 mmol/L N 101-111 Co2 Carbon Dioxide 33 mmol/L High 22-32 Anion Gap 4 mmol/L N 2-11 Glucose 123 mg/dL High 70-100 Blood Urea Nitrogen 12 mg/dL N 6-24 Creatinine 0.78 mg/dL N 0.67-1.17 BUN/Creatinine Ratio 15.4 N 8-20 Calcium 9.2 mg/dL N 8.6-10.3 Egfr Non- 95.8 N >60 Egfr 123.2 N >60 34 Laboratory test 02/01/2017 [facility] Vitamin B12 310 pg/mL N 180-914 35 finding [address] [place] [address] [phone] Lipid Profile 02/01/2017 [facility] Triglycerides 149 mg/dL N 36 (Trig/Chol/HDL) [address] [place] [address] [phone] Cholesterol 178 mg/dL N 37 HDL Cholesterol 47.9 mg/dL N 38 LDL Cholesterol 100 mg/dL N 39 Laboratory test 01/17/2017 [facility] Magnesium 2.2 mg/dL N 1.9-2.7 finding [address] [place] [address] [phone] Basic Metabolic 01/17/2017 [facility] Sodium 140 mmol/L N 133- [address] [place] [address] [phone] Potassium 3.6 mmol/L N 3.5-5.0 Chloride 104 mmol/L N 101-111 Co2 Carbon Dioxide 30 mmol/L N 22-32 Anion Gap 6 mmol/L N 2-11 Glucose 100 mg/dL N 70-100 Blood Urea Nitrogen 17 mg/dL N 6-24 Creatinine 0.90 mg/dL N 0.67-1.17 BUN/Creatinine Ratio 18.9 N 8-20 Calcium 8.7 mg/dL N 8.6-10.3 Egfr Non- 81.2 N >60 Egfr 104.4 N >60 40 Inr/Protime 02/03/2014 Inr 0.89 N 0.85-1.06 Basic [...] 88.6 N >60 Egfr 114.0 N >60 41 CBC Auto Diff 02/03/2014 White Blood Count [...] % 0.1 N Cath Panel 02/03/2014 Activated Partial 30.6 seconds N 24.0-36.1 Thrombo Time Cath Panel 07/11/2013 [facility] Activated Partial 31.3 seconds 24.0-36.[address] [place] [address] [phone] Inr/Protime 07/11/2013 [facility] Inr 0.97 0.85-1.[address] [place] [address] [phone] CBC Auto Diff 07/11/2013 [facility] White Blood Count 6.4 10^3/ uL 4.8-10.[address] [place] [address] [phone] Red Blood Count 4.20 10^6/uL 4.0-5.4 Hemoglobin [...] Cells % 0 Basic Metabolic Panel 07/11/2013 [facility] Sodium 141 mmol/L 133-145 [place] [address] [phone] Potassium 3.8 mmol/L 3.5-5.0 Chloride 104 mmol/L 101-111 Co2 Carbon Dioxide 31.0 mmol/L 22-32 Anion Gap 6.0 mmol/L 2-11 Glucose 87 mg/dL 70-100 Blood Urea Nitrogen 21 mg/dL 6-24 Creatinine 0.70 mg/dL 0.50-1.40 BUN/Creatinine Ratio 30.0 High 8-20 Calcium 9.1 mg/dL 8.1-9.9 Egfr Non- 109.4 >60 Egfr 140.6 >60 43 Laboratory test 04/24/2013 [facility] Inr 1.08 High 0.85-1.[address] [place] [address] [phone] Laboratory test 04/21/2013 [facility] Inr 1.24 High 0.85-1.06 [address] [place] [address] [phone] Type & Screen 04/08/2013 [facility] Patient A Negative [facility] [place] [address] [phone] Antibody Screen NEGATIVE Urinalysis 04/08/2013 [facility] Urine Color Yellow [address] [place] [address] [phone] Urine Appearance Clear Urine Specific Eden 1.020 1.010-1.030 Urine Esterase Trace Abnormal Negative Urine Nitrate Negative Negative Urine Urobilinogen Negative E.U./dL Negative Urine Protein Negative mg/dL Negative Urine pH 6.5 5-9 Urine Blood Negative Negative Urine Ketones Negative mg/dL Negative Urine Bilirubin Negative Negative Urine Glucose Negative mg/dL Negative Urine Microscopic 04/08/2013 [facility] Urine WBC 1+ (<[address] /hpf) [place] [address] [phone] Urine RBC 1+ (<3 /hpf) None Seen Bacteria Urine None Seen None Seen Basic Metabolic Panel 04/08/2013 [facility] Sodium 140 mmol/L 133-[address] [place] [address] [phone] Potassium 3.7 mmol/L 3.5-5.0 Chloride 104 mmol/L 101-111 Co2 Carbon Dioxide 32.0 mmol/L 22-32 Anion Gap 4.0 mmol/L 2-11 Glucose 108 mg/dL High 70-100 Blood Urea Nitrogen 15 mg/dL 6-24 Creatinine 0.80 mg/dL 0.50-1.40 BUN/Creatinine Ratio 18.8 8-20 Calcium 9.0 mg/dL 8.1-9.9 Egfr Non- 94.0 >60 Egfr 120.9 >60 46 Laboratory test 04/08/2013 [facility] Activated 30.4 24.0- 36.[address] [place] [address] Thrombo Time [phone] Inr/Protime 04/08/2013 [facility] Inr 0.91 0.85-1.[address] [place] [address] [phone] CBC No Diff 04/08/2013 [facility] White Blood 6.3 10^3/uL 4.8 -10.[address] [place] [address] [phone] Red Blood Count 4.37 10^6/uL 4.0-5.4 Hemoglobin 13.0 g/dL Low 14.0-18.0 Hematocrit 40 % Low 42-52 Mean Corpuscular Volume 92 fL 80-94 Mean Corpuscular Hemoglobin 30 pg 27-31 Mean Corpuscular HGB Conc 33 g/dL 31-36 Red Cell Distribution Width 13 % 10.5-15 Platelet Count 180 10^3/uL 150-450 Mean Platelet Volume 9 um3 7.4-10.4 Laboratory test 01/21/2013 [facility] Fluid Crystals None Seen [address] [place], [place] [address] [phone] Body Fluid C&S 01/21/2013 [facility] Body Fluid Cult (SEE NOTE) [address] [place] [address] [phone] Body Fluid Cell 01/21/2013 [facility] Body Fluid Synovial Fluid Count [address] [place] [address] [phone] Body Fluid Appearance Cloudy Body Fluid Color Yellow Body Fluid Volume 1.5 mL Body Fluid WBC 67 Body Fluid RBC 2770 Body Fluid Polys 21 Body Fluid Lymph 54 Body Fluid [place] 22 Body Fluid Eosinophil 2 Body Fluid Total Cells Counted 100 Fluid Reviewed By MD (SEE NOTE) 51 Laboratory test 01/07/2013 [facility] C Reactive < 0.5 mg/dL Less than finding [address] Protein 0.5 [place] [address] [phone] CBC Auto Diff 01/07/2013 [facility] White Blood 5.6 10^3/uL 4.8-10.[address] [place] [address] [phone] Red Blood Count 4.30 10^6/uL 4.0-5.4 Hemoglobin [...] Blood Cells % 0 Laboratory test 01/07/2013 [facility] Erythrocyte Sed 18 mm/Hr 0-[address] [place] [address] [phone] CBC With Manual 05/02/2012 [facility] White Blood 9.7 4.8- 10.[address] Count 10^3/[place] [address] [phone] Red Blood Count 4.11 10^6/uL 4.0-5.4 Hemoglobin [...] Morphology Normal Normal Basic Metabolic Panel 05/02/2012 [facility] Sodium 138 mmol/L 133-145 [address] [place] [address] [phone] Potassium 3.3 mmol/L Low 3.5-5.0 Chloride 101 mmol/L 101-111 Co2 Carbon Dioxide 32.0 mmol/L 22-32 Anion Gap 5.0 mmol/L 2-11 Glucose 119 mg/dL High 70-100 Blood Urea Nitrogen 15 mg/dL 6-24 Creatinine 0.80 mg/dL 0.50-1.40 BUN/Creatinine Ratio 18.8 8-20 Calcium 8.4 mg/dL 8.1-9.9 Egfr Non- 94.2 >60 Egfr 121.2 >60 52 Laboratory test 05/02/2012 [facility] Creatine Kinase 110 U/L 0-200 finding [address] [place] [address] [phone] Laboratory test 03/23/2012 [facility] Erythrocyte Sed 41 MM/HR High 0-[address] [place] [address] [phone] CBC Auto Diff 03/23/2012 [facility] White Blood 7.1 4.8-10.[address] Count 10^3/uL [place], [place] [address] [phone] Red Blood Count 3.86 10^6/uL Low 4.0-5.4 [...] Blood Cells % 0 Laboratory test 03/23/2012 [facility] Uric Acid 3.9 mg/dL 2.6 -7.[address] [place] [address] [phone] Comp Metabolic 03/23/2012 [facility] Sodium 138 mmol/L 133- [address] [place] [address] [phone] Potassium 3.4 mmol/L Low 3.5-5.0 Chloride 104 [...] 1.1 1-3 Total Bilirubin 0.5 mg/dL 0.1-1.0 53 Alkaline Phosphatase 56 U/L 30-110 Alt 18 U/L 14-54 Ast 22 U/L 12-42 Egfr Non- 94.2 >60 Egfr 121.2 >60 54 CBC Auto Diff 01/24/2012 [facility] White Blood 6.3 CUMM 4.8- 10.[address] [place] [address] [phone] Red Cell Count 3.83 CUMM Low 4.6-6.2 [...] Eosinophils 0.1 0-0.6 Abs Basophils 0 0-0.2 Laboratory test 01/24/2012 [facility] Iron Total 63 g/dL 45 -[address] [place] [address] [phone] Ferritin 92 NG/ML 24-336 Vitamin B12 369 pg/mL 180-914 Folic Acid > 25.8 NG/ML See Below 55 Basic Metabolic Panel 01/24/2012 [facility] Sodium 137 mmol/L 135-[address] [place] [address] [phone] Potassium 4.2 mmol/L 3.5-5.0 Chloride 103 mmol/L 101-111 Co2 (Carbon Dioxide) 29.0 mmol/L 22-32 Anion Gap 5.0 mmol/L 2-11 56 Glucose 84 mg/dL 70-100 BUN 20 mg/dL 6-24 Creatinine 0.8 mg/dL 0.50-1.40 One Over Creatinine 1.25 BUN/Creatinine Ratio 25.0 High 8-20 Calcium 9.0 mg/dL 8.1-9.9 eGFR Non- 94.2 > 60 eGFR 121.2 > 60 57 Laboratory test 01/24/2012 [facility] TSH 1.02 MIU/ML 0.34- 5.[address] [place] [address] [phone] Surgical 12/13/2011 [facility] Surgical 58 Pathology 101 [facility] Pathology ----- <[place] [address] NOTE> [phone] CBC Auto Diff 10/19/2011 [facility] White Blood 6.6 CUMM 4.8- 10.[address] [place] [address] [phone] Red Cell Count 4.25 CUMM Low 4.6-6.2 [...] Eosinophils 0.1 0-0.6 Abs Basophils 0 0-0.2 59 Comp Metabolic Panel 10/19/2011 [facility] Sodium 140 mmol/L 135-[address] [place] [address] [phone] Potassium 3.8 mmol/L 3.5-5.0 Chloride 105 mmol/L 101-111 Co2 (Carbon Dioxide) 31.0 mmol/L 22-32 Anion Gap 4.0 mmol/L 2-11 60 Glucose 100 mg/dL 70-100 BUN 20 mg/dL 6-24 Creatinine 0.9 mg/dL 0.50-1.40 One Over Creatinine 1.11 BUN/Creatinine Ratio 22.2 High 8-20 Calcium 8.9 mg/dL 8.1-9.9 Total Protein 6.5 GM/DL 6.2-8.1 Albumin 3.9 GM/DL 3.2-5.2 Globulin 2.6 GM/DL 2-4 Albumin/Globulin Ratio 1.5 1-3 Bilirubin Total 0.6 mg/dL 0.4-1.5 61 Alkaline Phosphatase 54 U/L 39-117 Alt (SGPT) 24 U/L 17-63 Ast (Sgot) 25 U/L 12-42 eGFR Non- 82.3 > 60 eGFR 105.8 > 60 62 Laboratory test 10/19/2011 [facility] Erythrocyte Sed 13 MM/HR 0-[address] [place] [address] [phone] C Reactive Protein < 0.5 mg/dL Less Than 0.5 TSH 0.82 MIU/ML 0.34-5.60 Laboratory test 10/03/2011 [facility] Stool [address] Culture <SEE NOTE> [place] [address] [phone] CBC Auto Diff 10/02/2011 [facility] White Blood 6.1 CUMM 4.8 - [address] Count 10.8 [place] [address] [phone] Red Cell Count 4.34 CUMM Low 4.6-6.2 Hemoglobin 13.9 g/dL Low 14.0-18.0 Hematocrit 40 % Low 42-52 Mean Corpuscular Volume 93 um3 80-94 Mean Corpuscular Hemoglob 32 pg High 27-31 Mean Corpuscular HGB Cone 34 g/dL 32-36 Redcell Distribution WDTH 13 % 10.5-15 Platelet Count 190 CUMM 150-450 Mean Platelet Volume 9.5 um3 7.4-10.4 64 Comp Metabolic Panel 10/02/2011 [facility] Sodium 138 mmol/L 135-145 [place] [address] [phone] Potassium 3.4 mmol/L Low 3.5-5.0 Chloride 100 mmol/L Low 101-111 Co2 (Carbon Dioxide) 29.0 mmol/L 22-32 Anion Gap 9.0 mmol/L 2-11 65 Glucose 70 mg/dL 70-100 BUN 16 mg/dL 6-24 Creatinine 1.0 mg/dL 0.50-1.40 One Over Creatinine 1.00 BUN/Creatinine Ratio 16.0 8-20 Calcium 8.9 mg/dL 8.1-9.9 Total Protein 6.5 GM/DL 6.2-8.1 Albumin 4.0 GM/DL 3.2-5.2 Globulin 2.5 GM/DL 2-4 Albumin/Globulin Ratio 1.6 1-3 Bilirubin Total 0.5 mg/dL 0.4-1.5 66 Alkaline Phosphatase 59 U/L 39-117 Alt (SGPT) 24 U/L 17-63 Ast (Sgot) 28 U/L 12-42 eGFR Non- 72.8 > 60 eGFR 93.7 > 60 67 Laboratory test 10/02/2011 [facility] Erythrocyte Sed 10 MM/HR 0-[address] [place] [address] [phone] Manual 10/02/2011 [facility] Polysegmented 71 % 38-83 [place] [address] [phone] Band Neutrophil 1 % 0-8 Lymphocyte 21 % Low 25-47 Monocyte 7 % 0-13 Absolute Neutrophil Count 4.30 RBC Morphology NORMAL Laboratory test 01/04/2011 [facility] Hemoglobin A1c 5.7 5-7 finding Laboratory test 12/27/2010 [facility] Thyroxine 5.9 g/dL 5- [address] [place] [address] [phone] CBC W/Electronic 12/27/2010 [facility] White Blood Count 6.5 CUMM 4.8-10.[address] [place] [address] [phone] Red Cell Count 4.30 CUMM Low 4.6-6.2 [...] Abs Basophils 0 0-0.2 Lipid Panel 12/27/2010 [facility] Cholesterol 165 mg/dL Less Than 200 68 [address] [place] [address] [phone] Triglyceride 96 mg/dL 40-200 High Density Lipoprotein 43 mg/dL 40-60 69 Cholesterol/HDL Ratio 3.84 AVERAGE 1-4.97 Low Density Lipoprotein 103 mg/dL High Less Than 100 70 CMP Panel 12/27/2010 [facility] Albumin 4.1 GM/DL 3.2-5.2 [address] [place] [address] [phone] Alt (SGPT) 19 U/L 17-63 Calcium 9.1 mg/dL 8.1-9.9 Co2 (Carbon Dioxide) 32.0 mmol/L 22-32 Chloride 101 mmol/L 101-111 Glucose 92 mg/dL 70-100 Alkaline Phosphatase 55 U/L 39-117 Potassium 3.8 mmol/L 3.5-5.0 Total Protein 6.7 GM/DL 6.2-8.1 Sodium 139 mmol/L 135-145 Ast (Sgot) 24 U/L 12-42 BUN 14 mg/dL 6-24 Anion Gap 6.0 mmol/L 2-11 71 Creatinine 0.80 mg/dL 0.50-1.40 One Over Creatinine 1.20 BUN/Creatinine Ratio 17.5 8-20 Globulin 2.6 GM/DL 2-4 Albumin/Globulin Ratio 1.6 1-3 Bilirubin Total 0.8 mg/dL 0.4-1.5 72 eGFR Non- 94.5 > 60 eGFR 121.5 > [address] [facility] 12/27/2010 [facility] TSH 0.63 MIU/ML 0.34- 5.60 Panel [address] [place] [address] [phone] Laboratory test 07/06/2010 [facility] Hemoglobin A1c 6.3 5-7 finding Laboratory test 04/26/2010 [facility] Ast (Sgot) 25 U/L 12- 42 finding [address] [place] [address] [phone] Alt (SGPT) 28 U/L 17-63 Lipid Profile 04/26/2010 [facility] Triglyceride 83 mg/dL 40- 200 (Trig/Chol/HDL) [address] [place] [address] [phone] Cholesterol 156 mg/dL Less Than 200 74 High Density Lipoprotein 41 mg/dL 40-60 75 Cholesterol/HDL Ratio 3.80 AVERAGE 1-4.97 Low Density Lipoprotein 98 mg/dL Less Than 100 76 Basic Metabolic Panel 04/26/2010 [facility] Sodium 140 mmol/L 135-145 [address] [place] [address] [phone] Potassium 3.8 mmol/L 3.5-5.0 Chloride 103 mmol/L 101-111 Co2 (Carbon Dioxide) 32.0 mmol/L 22-32 Anion Gap 5.0 mmol/L 2-11 77 Glucose 92 mg/dL 70-100 78 BUN 14 mg/dL 6-24 Creatinine 0.90 mg/dL 0.50-1.40 One Over Creatinine 1.10 BUN/Creatinine Ratio 15.6 8-20 Calcium 9.0 mg/dL 8.1-9.9 eGFR Non- 87.9 > 60 eGFR 106.4 > 60 79 Laboratory test 04/26/2010 [facility] Hemoglobin A1c 6.3 % High Less Than [address] 6[address]0 [place] [address] [phone] Laboratory test 04/13/2010 [facility] PSA,Diagnostic 1.48 0- [address] NG/[place] [address] [phone] DR [facility] 02/11/2010 [facility] TSH 1.55 0.34-5.[address] MIU/[place] [address] [phone] Comp Metabolic 02/11/2010 [facility] Sodium 143 135-[address] mmol/[place] [address] [phone] Potassium 3.8 mmol/L 3.5-5.0 Chloride 105 mmol/L 101-111 Co2 (Carbon Dioxide) 30.0 mmol/L 22-32 Anion Gap 8.0 mmol/L 2-11 82 Glucose 115 mg/dL High 70-100 83 BUN 13 mg/dL 6-24 Creatinine 0.90 mg/dL 0.50-1.40 One Over Creatinine 1.10 BUN/Creatinine Ratio 14.4 8-20 Calcium 8.8 mg/dL 8.1-9.9 Total Protein 6.9 GM/DL 6.2-8.1 Albumin 4.1 GM/DL 3.2-5.2 Globulin 2.8 GM/DL 2-4 Albumin/Globulin Ratio 1.5 1-3 Bilirubin Total 0.7 mg/dL 0.4-1.5 84 Alkaline Phosphatase 54 U/L 39-117 Alt (SGPT) 52 U/L 17-63 Ast (Sgot) 39 U/L 12-42 eGFR Non- 87.9 > 60 eGFR 106.4 > 60 85 Lipid Profile 02/11/2010 [facility] Triglyceride 203 mg/dL High 40-200 (Trig/Chol/HDL) [address] [place] [address] [phone] Cholesterol 233 mg/dL High Less Than 200 86 High Density Lipoprotein 42 mg/dL 40-60 87 Cholesterol/HDL Ratio 5.55 AVERAGE High 1-4.97 Low Density Lipoprotein 150 mg/dL High Less Than 100 88 CBC With 02/11/2010 [facility] White Blood 6.9 CUMM 4.8-10.8 Electronic Diff [address] [place] [address] [phone] Red Cell Count 4.59 CUMM Low 4.6-6.2 [...] 0-0.6 Abs Basophils 0 0-0.2 Surgical 06/08/2009 [facility] Surgical 89 Pathology 101 Pathology <SEE NOTE> [place], [place] [id number] [phone] Laboratory 04/14/2009 [facility] PSA,Diagnosti 1.70 NG/ML 0- [address] [place], [place] [address] [phone] Laboratory 04/01/2008 [facility] TSH 0.93 MIU/ML 0.34 [address] -5.6 [place] [address] [phone] PSA Screening 1.42 NG/ML 0-4 92 Thyroxine Free 04/01/2008 [facility] Free Thyroxine 0.86 0.61 -1.[address] NG/[place] [address] [phone] Lipid Profile 04/01/2008 [facility] Triglyceride 295 mg/dL High 40-200 (Trig/Chol/HDL [address] ) [place] [address] [phone] Cholesterol 165 mg/dL Less Than 200 94 High Density Lipoprotein 33 mg/dL Low 40-60 95 Cholesterol/HDL Ratio 5.00 AVERAGE High 1-4.97 Low Density Lipoprotein 73 mg/dL Less Than 100 96 Comp Metabolic Panel 04/01/2008 [facility] Sodium 141 mmol/L 135-[address] [place] [address] [phone] Potassium 3.3 mmol/L Low 3.5-5.0 Chloride 106 mmol/L 101-111 Co2 (Carbon Dioxide) 31.0 mmol/L 22-32 Anion Gap 4.0 mmol/L 2-11 97 Glucose 104 mg/dL High 70-100 98 BUN 15 mg/dL 6-24 Creatinine 0.82 mg/dL 0.50-1.40 One Over Creatinine 1.20 BUN/Creatinine Ratio 18.3 8-20 Calcium 9.0 mg/dL 8.1-9.9 99 Total Protein 6.9 GM/DL 6.2-8.1 Albumin 3.8 GM/DL 3.2-5.2 Globulin 3.1 GM/DL 2-4 Albumin/Globulin Ratio 1.2 1-3 Bilirubin Total 0.6 mg/dL 0.4-1.5 Alkaline Phosphatase 67 U/L 39-117 Alt (SGPT) 47 U/L 17-63 Ast (Sgot) 34 U/L 12-42 CBC With 04/01/2008 [facility] White Blood 5.3 CUMM 4.8-10.8 Electronic Diff [address] [place] [address] [phone] Red Cell Count 4.68 CUMM 4.6-6.2 Hemoglobin [...] 0-0.6 Abs Basophils 0 0-0.2 Comp Metabolic 04/04/2007 [facility] One Over Creatinine 0.90 [address] [place] [address] [phone] Anion Gap 6.0 mmol/L 2-11 101 Albumin/Globulin Ratio 1.2 1-3 Albumin 3.8 GM/DL [...] Ratio 14.5 8-20 Creatinine 1.1 mg/dL 0.5-1.4 CBC W/ Electronic 04/04/2007 [facility] White Blood 7.2 CUMM 4.8-10.[address] [place] [address] [phone] Abs Basophils 0 0-0.2 Abs Eosinophils 0.3 [...] WDTH 13 % 10.5-15 Laboratory test 04/04/2007 [facility] PSA Screening 1.58 NG/ML 0-[address] [place] [address] [phone] TSH 1.33 MIU/ML 0.34-5.60 Lipid Profile 04/04/2007 [facility] Cholesterol/HDL 4.81 1- 4.97 (Trig/Chol/HDL) [address] [place] [address] [phone] Cholesterol 202 mg/dL High Less Than 200 103 Triglyceride 218 mg/dL High 40-200 High Density Lipoprotein 42 mg/dL 40-60 Low Density Lipoprotein 116 mg/dL High Less Than 100 104 1 The urine specimen was tested at the listed cutoffs: Drug class test level (ng/mL) Amphetamines 500 Barbiturates 200 Benzodiazepine metabolites 200 Cocaine metabolites 150 Cannabinoids 50 Opiates 300 Pcp 25 Specimen was received without chain of custody. Results should be used for medical purposes only. 2 [facility] Severe Sepsis and Septic Shock Management Bundle Measure requires all lactic acids initially measuring >2.0 mmol/L be repeated. 3 Troponin-I testing on Plasma Separator Tubes (PST) has a known false positive rate of 0.20-0.40%. All positive troponins reflex immediate secondary confirmatory testing. 4 Because ethnic data is not always [...] in selective patients <6.0%. Please refer to [place] [employer] diabetic care guidelines for further information. 6 Therapeutic target for the treatment of diabetes mellitus patients is <7% HBA1C, and in selective patients <6.0%. Please refer to [place] [employer] diabetic care guidelines for further information. 7 [facility] Severe Sepsis and Septic Shock Management Bundle Measure requires all lactic acids initially measuring >2.0 mmol/L be repeated. 8 Because ethnic data is not always [...] 5 Kidney failure <15 (or dialysis) 9 Therapeutic target for the treatment of diabetes mellitus patients is <7% HBA1C, and in selective patients <6.0%. Please refer to [place] [employer] diabetic care guidelines for further information. 10 SEE RESULT BELOW Name: BLUEHUMA : [address]: Belen Sousa MD Acct: [id number] Unit: [id number] AGE: 82 Location: [place] [address] Re12/09/17 Dis: 12/10/17 SEX: M Status: DIS IN SPEC: [id number] ANJUM: 12/09/[address] [facility] [address]: Huma Holcomb MD REQ: [id number] RECD: 12/09/17 STATUS: DIEUDONNE FERNANDEZ DR: Chriss Romero MD _ SOURCE: URINE SPDESC: ORDERED: Urine Culture Procedure Result Reported Site Urine Culture Final 12/11/17- 0815 ML No Growth (<1,000 CFU/mL) * ML - Main Lab . END OF REPORT DEPARTMENT OF PATHOLOGY, [address] [place] [address] Jeb Reyse M.D. Director [facility] # [id number] 11 PATIENT WILL BRING BACK PLAIN CONTAINER ANOTHER DAY STOOL KIT ONLY 12 SEE RESULT BELOW Name: HUMA BLUE : [address]: Balwinder Romero MD Acct: [id number] Unit: [id number] AGE: 82 Location: [facility] Re11/21/17 SEX: M Status: REG REF SPEC: [id number] ANJUM: 11/21/[address]: Chriss Romero MD REQ: [id number] RECD: 11/21/17 STATUS: COMP _ SOURCE: STOOL SPDESC: ORDERED: Stool Culture, O P: Bernarda/Jimbo COMMENTS: PATIENT WILL BRING BACK PLAIN CONTAINER [...] CONTINUED ON NEXT PAGE DEPARTMENT OF PATHOLOGY, [address] [place] [address] Jeb Reyes M.D. Director [facility] # [id number] Patient: HUMA BLUE [id number] (Continued) Specimen: [id number] Collected: 11/21/17-799 Received: 11/21/17 (Continued) Procedure Result Reported Site O P: [...] is requested. Contact the Microbiology Department at [phone]. TEST LIMITATIONS: As with all diagnostic procedures, [...] . END OF REPORT DEPARTMENT OF PATHOLOGY, [address] [place] [address] Jeb Reyes M.D. Director [facility] # [id number] 13 SEE RESULT BELOW Name: HUMA BLUE : [address]: Balwinder Romero MD Acct: [id number] Unit: [id number] AGE: 82 Location: [facility] Re11/21/17 SEX: M Status: REG REF SPEC: [id number] ANJUM: 11/21/[address] [facility] [address]: Chriss Romero MD REQ: [id number] RECD: 11/22/17 STATUS: COMP _ SOURCE: STOOL SPDESC: ORDERED: C. diff PCR COMMENTS: Unable to perform Shiga Toxin testing. Specimen collection requirements were not met. Stool for Shiga Toxin testing must be received by the laboratory within 2 hours of collection or placed in [place] transport medium. *please interpret stool culture result [...] . END OF REPORT DEPARTMENT OF PATHOLOGY, [address] [place] [address] Jeb Reyes M.D. Director [facility] # [id number] Interpretation: Abnormal (>120.0 mcg/g) REFERENCE VALUE <=50.0 (Normal) Test Performed by: [address] [address] 15 SEE RESULT BELOW Name: HUMA BLUE : [address]: Balwinder Romero MD Acct: [id number] Unit: [id number] AGE: 82 Location: [facility] Re11/21/17 SEX: M Status: REG REF SPEC: [id number] ANJUM: 11/21/17-[address]: Chriss Romero MD REQ: [id number] RECD: 11/21/17-1055 STATUS: RES _ SOURCE: STOOL SPDESC: ORDERED: [...] is requested. Contact the Microbiology Department at [phone]. TEST LIMITATIONS: As with all diagnostic procedures, [...] CONTINUED ON NEXT PAGE DEPARTMENT OF PATHOLOGY, [address] [place] [address] Jeb Reyes M.D. Director [facility] # [id number] Patient: HUMA BLUE [id number] (Continued) Specimen: [id number] Collected: 11/21/17-799 Received: 11/21/17-1055 (Continued) Procedure Result [...] . END OF REPORT DEPARTMENT OF PATHOLOGY, [address] [place] [address] Jeb Reyes M.D. Director [facility] # [id number] 16 Therapeutic target for the treatment of diabetes mellitus patients is <7% HBA1C, and in selective patients <6.0%. Please refer to [place] [employer] diabetic care guidelines for further information. 17 Because ethnic data is not always [...] 5 Kidney failure <15 (or dialysis) 18 [facility] Severe Sepsis and Septic Shock Management Bundle Measure requires all lactic acids initially measuring >2.0 mmol/L be repeated. 19 Desirable: <150 Borderline High: 150-199 High: 200-499 Very High: >500 20 Desirable: <200 Borderline High: 200-239 High: >239 21 Low: <40 Desirable: 40-60 High: >60 22 Desirable: <100 Near Optimal: 100-129 Borderline High: 130-159 High: 160-189 Very High: >189 23 Because ethnic data is not always [...] 5 Kidney failure <15 (or dialysis) 24 Normal Range 180 to 914 Indeterminate Range 145 to 180 Deficient Range <145 25 FASTING 10 HOUR 26 REFERENCE VALUE (Peripheral vein specimen) Na-deplete, upright: Mean: 5.9 Range: 2.9-10.8 Na-replete, upright: Mean: 1.0 Range: < or=0.6-3.0 ADDITIONAL INFORMATION Testing performed by Liquid Chromatography-Tandem Mass Spectrometry (LC-MS/MS). This test was developed and its performance characteristics determined by [facility] in a manner consistent with CLIA requirements. This test has not been cleared or approved by the U.S. Food and Drug Administration. Test Performed by: [facility] - [address] [address] 27 REFERENCE VALUE (Peripheral vein specimen) Na-deplete, upright: Mean: 5.9 Range: 2.9-10.8 Na-replete, upright: Mean: 1.0 Range: < or=0.6-3.0 ADDITIONAL INFORMATION Testing performed by Liquid Chromatography-Tandem Mass Spectrometry (LC-MS/MS). This test was developed and its performance characteristics determined by [facility] in a manner consistent with CLIA requirements. This test has not been cleared or approved by the U.S. Food and Drug Administration. Test Performed by: [facility] - [address] [address] 28 [facility] Severe Sepsis and Septic Shock Management Bundle Measure requires all lactic acids initially measuring >2.0 mmol/L be repeated. 29 Because ethnic data is not always readily [...] 15-29 5 Kidney failure <15 (or dialysis) 30 Desirable <150 Borderline high 150-199 High 200-499 Very High >500 31 Desirable <200 Borderline high 200-239 High >239 32 Low <40 Desirable: 40-60 High: >60 33 Desirable: <100 mg/dL Near Optimal: 100-129 mg/dL Borderline High: 130-159 mg/dL High: 160-189 mg/dL Very High: >189 mg/dL 34 Because ethnic data is not always [...] 5 Kidney failure <15 (or dialysis) 35 Normal Range 180 to 914 Indeterminate Range 145 to 180 Deficient Range <145 36 Desirable <150 Borderline high 150-199 High 200-499 Very High >500 37 Desirable <200 Borderline high 200-239 High >239 38 Low <40 Desirable: 40-60 High: >60 39 Desirable: <100 mg/dL Near Optimal: 100-129 mg/dL Borderline High: 130-159 mg/dL High: 160-189 mg/dL Very High: >189 mg/dL 40 Because ethnic data is not always readily [...] 15-29 5 Kidney failure <15 (or dialysis) 41 Because ethnic data is not always [...] 5 Kidney failure <15 (or dialysis) 42 labs to be drawn between July 09 - 2013 43 Because ethnic data is not always readily [...] 15-29 5 Kidney failure <15 (or dialysis) 44 Please note the change in the INR reference range effective 13. 45 Please note the change in the INR reference range effective 13. 46 Because ethnic data is not always readily [...] 15-29 5 Kidney failure <15 (or dialysis) 47 AA 04/16/13 48 Please note the change in the INR reference range effective 13. 49 LEFT KNEE Synovial (Joint) Fluid 50 RUN DATE: 01/25/13 [facility] LAB LIVE PAGE 1 RUN TIME: [address] [place] [address] Specimen Inquiry Name: HUMA BLUE : [address]: Neymar Marrero MD Acct: [id number] Unit: [id number] AGE: 77 Location: [facility] Re01/21/13 SEX: M Status: REG REF SPEC: [id number] ANJUM: 01/21/13-[address] [facility] [address]: Neymar Marrero MD REQ: [id number] RECD: 01/21/13-1035 STATUS: COMP _ SOURCE: JOINT FLUI SPDESC:KNEE LEFT ORDERED: BF Cult/GS COMMENTS: LEFT KNEE Procedure Result Verified Site Body Fluid Gram Stain Final 01/21/13- 1229 ML 1+ Polys No Organisms Seen Preparation By Direct Smear Body Fluid Culture Final 01/25/13- 1010 ML No Growth Day 4 END OF REPORT * ML=Testing performed at Main Lab DEPARTMENT OF PATHOLOGY, [address] [place] [address] Jeb Reyes M.D. Director [facility] Permit #[id number] Slide and differential reviewed. No bacteria, blasts or other malignant cells seen. REVIEWED BY JEB REYES MD 52 Because ethnic data is not always [...] 5 Kidney failure <15 (or dialysis) 53 A metabolite of Naproxen, O-desmethylnaproxen, has been shown to interfere with the Jendrassik-Lindsay method for measuring total bilirubin. Samples from patients who have taken Naproxen have shown spurious elevation in total bilirubin levels. 54 Because ethnic data is not always readily [...] 15-29 5 Kidney failure <15 (or dialysis) 55 Please note: New reference range, effective 05/25/11 NORMAL REFERENCE RANGE: GREATER THAN 4.1 NG/ML 56 Anion gap measurement may be of limited value in the presence of any alkalosis, especially in a combined acid base disorder. . 57 Because ethnic data is not always [...] 5 Kidney failure <15 (or dialysis) 58 ---- RUN DATE: 12/15/11 [facility] NMI LIVE PAGE 1 RUN TIME: 1323 Specimen Inquiry RUN USER: INTERFACE -- Name: HUMA BLUE Accapril#: [id number] Status: REG REF Re12/13/11 Age/Sex: 76/M Unit#: [id number] Location: 2END : 36 -- Specimen: [id number] [id number] Spec Date:12/13/11- Dr: Clayton Damon MD Spec [...] received in formalin labelled Huma Blue, Biopsy Distal Transverse Colon Polyp, and consists [...] polyp (see comment). -- DEPARTMENT OF PATHOLOGY, [address] [place] [address] [facility] Permit #[id number] Jeb Reyes M.D. Director Iona Denise M.D. Property Adjuster Dir florentin -- -- RUN DATE: 12/15/11 [facility] NMI LIVE PAGE 2 RUN TIME: 1323 Specimen Inquiry RUN USER: INTERFACE -- Name: HUMA BLUE Status: REG REF Re12/13/11 Age/Sex: 76/M Unit#: [id number] Location: [address] [place] [address].O.B. 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 Part 3 (sigmoid nodule) shows colonic mucosa with again evidence of collagenous colitis and with hyperplastic change. Signed Electronically by: IONA DENISE 12/15/11 1323 -- -- DEPARTMENT OF PATHOLOGY, [address] [place] [address] [facility] Permit #[id number] Jeb Reyes M.D. Director Iona Denise M.D. Property Adjuster Dir florentin -- 59 Lymphopenia % 60 Anion gap measurement may be of limited value in the presence of any alkalosis, especially in a combined acid base disorder. . 61 A metabolite of Naproxen, O-desmethylnaproxen, has been shown to interfere with the Jenlaurenik-Saulsbury method for measuring total bilirubin. Samples from [...] 5 Kidney failure <15 (or dialysis) 63 RUN DATE: 10/10/11 [facility] NMI LIVE PAGE 1 RUN TIME: 1455 Specimen Inquiry RUN USER: INTERFACE Name: HUMA BLUE#: [id number] Status: REG REF Re10/03/11 Age/Sex: 76/M Unit#: [id number] Location: [facility] : 37 SPEC #: [id number] ANJUM: 10/03/11 STATUS: COMP REQ #: [id number] RECD: 10/03/[address] [facility] [address]: Yash Nevarez III, MD SOURCE: STOOL ENTR: 10/03/[address] [facility] [address]: LESLI: ORDERED: STOOL CULTURE, O P (FULL), O P: GIAR/CRYP, C. DIFF AMP DNA, STL LACTOF QUERIES: MEDENT REQUISITION # [id number] ACT WKST: P 10/07/11 #1 Procedure Result [...] ANTIGEN NEGATIVE BY IMMUNOASSAY DEPARTMENT OF PATHOLOGY, [address] [place] [address] [facility] Permit #[id number] Brissa Cummings M.D. [employer] RUN DATE: 10/10/11 [facility] NMI LIVE PAGE 2 RUN TIME: 7093 Specimen Inquiry RUN USER: INTERFACE Name: HUMA BLUE Status: REG REF Re10/03/11 Age/Sex: 76/M Unit#: [id number] [facility] -- -- CONTINU ED Procedure [...] is requested. Contact the Microbiology Department at [phone]. TEST LIMITATIONS: As with all diagnostic procedures, [...] LACTOFERRIN POSITIVE BY IMMUNOASSAY DEPARTMENT OF PATHOLOGY, [address] [place] [address] [facility] Permit #[id number] Brissa Cummings M.D. [employer] RUN DATE: 10/10/11 [facility] NMI LIVE PAGE 3 RUN TIME: 3129 Specimen Inquiry RUN USER: INTERFACE Name: BLUEHUMA Status: REG REF Re10/03/11 Age/Sex: 76/M Unit#: [id number] Location: [facility] : 36 -- -- CONTINU ED Procedure Result Verified Site FECAL LACTOFERRIN (STOOL WBC) Final (continued) 10/03/11- 1456 TEST LIMITATIONS: Assay detects elevated levels of lactoferrin released from fecal leukocytes as a marker of intestinal inflammation. The test may not be appropriate in immunocompromised persons. Fecal samples from breast fed infants should not be used with this assay. [facility] Permit #[id number] [address] [place] [address] DEPARTMENT OF PATHOLOGY, [address] [place] [address] [facility] Permit #[id number] Brissa Cummings M.D. Polisher Eyeglass Frames [address] 1 65 Anion gap measurement may be of limited value in the presence of any alkalosis, especially in a combined acid base disorder. . 66 A metabolite of Naproxen, O-desmethylnaproxen, has [...] Risk: LDL Greater than 189 MG/DL 71 Anion gap measurement may be of limited value in the presence of any alkalosis, especially in a combined acid base disorder. . 72 A metabolite of Naproxen, O-desmethylnaproxen, has been shown to interfere with the Jendrassik-Lindsay method for measuring total bilirubin. Samples from patients who have taken Naproxen have shown spurious elevation in total bilirubin levels. 73 Because ethnic data is not always readily [...] 15-29 5 Kidney failure <15 (or dialysis) 74 CHOLESTEROL INTERPRETATION: Desirable: Less than 200 MG/DL Borderline-High Risk: 200-239 MG/DL High-Risk: 240 MG/DL and over 75 HDL INTERPRETATION: Undesirable: High Risk: Less than 40 MG/DL Desirable: Low Risk: Greater than 60 MG/DL 76 LDL INTERPRETATION: Low Risk Optimal Level: LDL Less than 100 MG/DL Near or Above Optimal: LDL 100-129 MG/DL Borderline High Risk: LDL 130-159 MG/DL High Risk: LDL 160-189 MG/DL Very High Risk: LDL Greater than 189 MG/DL 77 Anion gap measurement may be of limited value in the presence of any alkalosis, especially in a combined acid base disorder. . 78 Note change in reference range as of 01/23/08. The change was based on recommendations from the [place] [employer]. 79 Because ethnic data is not always readily [...] 15-29 5 Kidney failure <15 (or dialysis) 80 THERAPEUTIC TARGET FOR THE TREATMENT OF DIABETES MELLITUS PATIENTS IS <7% HBA1C, AND IN SELECTIVE PATIENTS <6.0%. PLEASE REFER TO [place] DIABETIC CARE GUIDELINES FOR FURTHER INFORMATION. 81 * SERUM LEVELS OF PSA MEASURED USING THE BAKARI RRT Global ACCESS HYBRITECH IMMUNOASSAY SHOULD NOT BE INTERPRETED ABSOLUTE EVIDENCE OF THE PRESENCE OR ABSENCE OF DISEASE. THE PSA VALUE SHOULD BE USED IN CONJUNCTION WITH OTHER PERTINENT CLINICAL DIAGNOSTIC PROCEDURES. 82 Anion gap measurement may be of limited value in the presence of any alkalosis, especially in a combined acid base disorder. . 83 Note change in reference range as of 01/23/08. The change was based on recommendations from the [place] [employer]. 84 A metabolite of Naproxen, O-desmethylnaproxen, has been shown to interfere with the Jendrassik-Lindsay method for measuring total bilirubin. Samples from patients who have taken Naproxen have shown spurious elevation in total bilirubin levels. 85 Because ethnic data is not always readily [...] 15-29 5 Kidney failure <15 (or dialysis) 86 CHOLESTEROL INTERPRETATION: Desirable: Less than 200 MG/DL Borderline-High Risk: 200-239 MG/DL High-Risk: 240 MG/DL and over 87 HDL INTERPRETATION: Undesirable: High Risk: Less than 40 MG/DL Desirable: Low Risk: Greater than 60 MG/DL 88 LDL INTERPRETATION: Low Risk Optimal Level: LDL Less than 100 MG/DL Near or Above Optimal: LDL 100-129 MG/DL Borderline High Risk: LDL 130-159 MG/DL High Risk: LDL 160-189 MG/DL Very High Risk: LDL Greater than 189 MG/DL 89 ---- RUN DATE: 06/10/09 [facility] NMI LIVE PAGE 1 RUN TIME: 1526 Specimen Inquiry RUN USER: INTERFACE -- Name: HUMA BLUE Status: REG REF Re06/08/09 Age/Sex: 73/M Unit#: [id number] Location: [facility] : 37 -- Specimen: [id number] SOUT Spec Date: 06/08/[address]: Clayton liang MD Spec Type: SURGICAL P Received: 06/09/092199 Copies to: Yash Nevarez III, MD SPECIMEN [...] 06/10/09 1524 -- -- DEPARTMENT OF PATHOLOGY, [address] [place] [address] [facility] Permit #[id number] Jeb Reyes M.D. Director Iona Denise M.D. Property Adjuster Dir florentin -- 90 * SERUM LEVELS OF PSA MEASURED USING THE BAKARI RRT Global ACCESS HYBRITECH IMMUNOASSAY SHOULD NOT BE INTERPRETED ABSOLUTE EVIDENCE OF THE PRESENCE OR ABSENCE OF DISEASE. THE PSA VALUE SHOULD BE USED IN CONJUNCTION WITH OTHER PERTINENT CLINICAL DIAGNOSTIC PROCEDURES. 91 PATIENT MAY HAVE RESULTS PER DOCTOR'S AUTHORIZATION. Questions regarding this report should be directed to your doctor. FASTING 92 * SERUM LEVELS OF PSA MEASURED USING THE BAKARI VONDA ACCESS HYBRITECH IMMUNOASSAY SHOULD NOT BE INTERPRETED ABSOLUTE EVIDENCE OF THE PRESENCE OR ABSENCE OF DISEASE. THE PSA VALUE SHOULD BE USED IN CONJUNCTION WITH OTHER PERTINENT CLINICAL DIAGNOSTIC PROCEDURES. 93 PLEASE NOTE NEW REFERENCE RANGES. 94 CHOLESTEROL INTERPRETATION: Desirable: Less than 200 MG/DL Borderline-High Risk: 200-239 MG/DL High-Risk: 240 MG/DL and over 95 HDL INTERPRETATION: Undesirable: High Risk: Less than 40 MG/DL Desirable: Low Risk: Greater than 60 MG/DL 96 LDL INTERPRETATION: Low Risk Optimal Level: LDL Less than 100 MG/DL Near or Above Optimal: LDL 100-129 MG/DL Borderline High Risk: LDL 130-159 MG/DL High Risk: LDL 160-189 MG/DL Very High Risk: LDL Greater than 189 MG/DL 97 Anion gap measurement may be of limited value in the presence of any alkalosis, especially in a combined acid base disorder. . 98 Note change in reference range as of 01/23/08. The change was based on recommendations from the [place] [employer]. 99 Please note change in reference range effective 07 . 100 FASTING 101 Anion gap measurement may be of limited value in the presence of any alkalosis, especially in a combined acid base disorder. . 102 * SERUM LEVELS OF PSA MEASURED USING THE BAKARI VONDA ACCESS HYBRITECH IMMUNOASSAY SHOULD NOT BE INTERPRETED ABSOLUTE EVIDENCE OF THE PRESENCE OR ABSENCE OF DISEASE. THE PSA VALUE SHOULD BE USED IN CONJUNCTION WITH OTHER PERTINENT CLINICAL DIAGNOSTIC PROCEDURES. 103 Classification: Borderline High . 104 CALCULATED LDL APPROXIMATES THE VALUE OF A DIRECT LDL MEASUREMENT. Classification: Near or above optimal . Procedures Date Code Description Status 06/07/2018 31337 EEG Recording Awake & Drowsy Completed 02/22/2018 73019 EKG Tracing & Interpretation Completed 12/09/2017 18541 ECHO Transthorasic Realtime 2D W Doppler & Color Flow Completed Hosp 02/14/2017 78992 Treadmill Interp/Report Only Completed 02/14/2017 81981 Stress Test Supervsn W/Out I/R Completed 02/06/2017 22320 EKG Tracing & Interpretation Completed 02/06/2017 54854 EKG Tracing & Interpretation Completed 01/25/2017 14118 ECHO Transthorasic Realtime 2D W Doppler & Color Flow Completed Hosp 12/27/2016 93971 Closed TX Phalanx finger/thumb shaft w/o manipulation Completed 09/01/2016 36425 ECHO Transthorasic Realtime 2D W Doppler & Color Flow Completed Hosp 08/22/2016 48741 EKG Tracing & Interpretation Completed 02/29/2016 53066 ECHO Transthoracic, Real-Time 2D With Doppler And Completed Color Flow 02/02/2016 31302 EKG Tracing & Interpretation Completed 10/11/2014 77739 ECHO Transthorasic Realtime 2D W Doppler & Color Flow Completed Hosp 06/05/2014 05007 EKG Tracing & Interpretation Completed 05/04/2014 54109 Xray Knee 3 Views Completed 05/04/2014 00792 Rad Exam; Knee, Ap&L Completed 02/06/2014 14277 Left Heart Cath. Incl S/I Coronaries, Angio S/I V Gram Completed If Done 02/06/2014 16311 Intravascular Blood Flow Velocity Completed 01/27/2014 31400 ECHO Transthoracic, Real-Time 2D With Doppler And Completed Color Flow 01/22/2014 57856 ECHO Stress Test Incl Perf Contiuous ekg Monitoring Completed W/Phys Superv 01/22/2014 89825 ECHO Stress Test Incl Perf Contiuous ekg Monitoring Completed W/Phys Superv 11/14/2013 87293 EKG Tracing & Interpretation Completed 10/06/2013 62799 Xray Knee 3 Views Completed 07/24/2013 91240 EKG Tracing & Interpretation Completed 07/19/2013 14192 EKG, Interpretation Only Completed 07/18/2013 96351 Percutaneous Transcatheter Placement Of Intracoronary Completed Stent 07/18/2013 16333 EKG, Interpretation Only Completed 07/18/2013 25722 Left Health Catheterization W/Inj For Left Completed Ventriculography,S&I 07/18/2013 17942 Cath PLMT&NJX L Ventriculog Img S&I Completed 07/18/2013 45144 Left Heart Cath. Incl S/I Coronaries, Angio S/I V Gram Completed If Done 07/18/2013 92427 Cardiac Cath,LT Hrtmincl Intraprocedural Ink LT Completed Ventricul Mammary 07/07/2013 15632819 Mammogram Completed 07/04/2013 05120 ECHO Transthorasic Realtime 2D W Doppler & Color Flow Completed Hosp 07/04/2013 02530 EKG Tracing & Interpretation Completed 07/02/2013 73233 Treadmill Interp/Report Only Completed 07/02/2013 56357 Stress Test Supervsn W/Out I/R Completed 06/23/2013 90040 EKG Tracing & Interpretation Completed 05/30/2013 48987 Rad Exam; Knee Comp Completed 04/24/2013 30636 Xray Knee 3 Views Completed 04/16/2013 01541 Revision TKA W Or W/O Allograft;Femoral & Entire Completed Tibial Component 04/16/2013 28809 Revision TKA W Or W/O Allograft;Femoral & Entire Completed Tibial Component 02/26/2013 24571 EKG Tracing & Interpretation Completed 01/29/2013 38738 ECHO Transthoracic, Real-Time 2D With Doppler And Completed Color Flow 01/21/2013 43032 Inject/Drain Joint/Bursa Major W/O US Completed 11/07/2012 66985 Xray Knee 3 Views Completed 11/07/2012 56308 Rad Exam; Knee, Ap&L Completed 08/14/2012 06258 TKR Total Knee Replacement Completed 08/14/2012 35238 TKR Total Knee Replacement Completed 06/08/2012 87345 Treadmill Interp/Report Only Completed 06/08/2012 07409 Stress Test Supervsn W/Out I/R Completed 06/08/2012 30694 EKG, Interpretation Only Completed 05/15/2012 33915 Arthroscopy,Knee,Meniscectomy Media & Lateral Completed 05/15/2012 38505 Arthroscopy,Knee,Meniscectomy Media & Lateral Completed 05/02/2012 60378 EKG Tracing & Interpretation Completed 04/16/2012 17344 Inject/Drain Joint/Bursa Major W/O US Completed 12/13/2011 97591468 Colonoscopy Completed 11/30/2011 23429 Polysomnography Sleep Staging 4+ Parameters W/Cpap Completed 09/28/2011 99880 Treadmill Interp/Report Only Completed 09/28/2011 11380 Stress Test Supervsn W/Out I/R Completed 09/06/2011 76181 Holter Monitoring 24 HR New Completed 09/04/2011 28811 ECHO Stress Test Incl Perf Contiuous ekg Monitoring Completed W/Phys Superv 07/21/2011 61106 EKG Tracing & Interpretation Completed 07/04/2011 21270 ECHO Transthorasic Realtime 2D W Doppler & Color Flow Completed Hosp 07/04/2011 71979 Pulse Wave/Continuous-Interp.RPT Completed 07/04/2011 95853 Color Flow Doppler/Interp & Reprt Completed 01/04/2011 15509 EKG Tracing & Interpretation Completed 03/25/2010 60150 Admin Of Inj Completed 12/15/2009 365261317 Diabetic Retinal Eye Exam Completed 06/08/2009 83805168 Colonoscopy Completed 08/05/2003 57256433 Colonoscopy Completed 03/31/1999 95192764 Colonoscopy Completed Encounters Type Date Location Provider Dx Diagnosis Office Visit 06/10/2018 [facility] Javon Coleman, F33.1 Major depressive 1:15p Services Of [facility] Brissa disorder, recurrent, moderate 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 Office 05/20/2018 Neurohospitalist Quirino Rodriguez R41.0 Disorientation, Visit 7:00a Clinic Brissa Giles unspecified Z86.73 Prsnl hx of TIA (TIA), and cereb infrc w/o resid deficits Z79.02 MCC (current) use of antithrombotics/antiplatelets Office Visit 05/09/2018 [place] Javon Coleman, 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 3:15p Neurologic MGlo 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 Office Visit 05/01/2018 9:20a [facility] Ritesh Sauceda, G47.00 Insomnia , Medicine - LOAN ADVISER unspecified [address] F33.1 Major depressive disorder, recurrent, moderate E78.5 Hyperlipidemia, unspecified I10 Essential (primary) hypertension R73.03 Prediabetes F41.1 Generalized anxiety disorder Office Visit 04/03/2018 2:20p [facility] Ritesh Sauceda, R73.03 Prediabetes Medicine - [address] K21.9 Gastro-esophageal reflux disease without esophagitis E78.5 Hyperlipidemia, unspecified 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 other Hospitalists nontraumatic intracranial hemorrhage H53.8 Other visual disturbances I10 Essential (primary) hypertension E78.5 Hyperlipidemia, unspecified Office Visit 12/09/2017 Neurohospitalist Jamie H53.8 Other visual 7:00a David Haas M.D. disturbances I10 Essential (primary) hypertension Z86.73 Prsnl hx of TIA (TIA), and cereb infrc w/o resid deficits Z79.02 terminal worker (current) use of antithrombotics/antiplatelets Office Visit 12/09/2017 [facility] I69.298 Other sequelae of 3:03p artemio [...] and cereb infrc w/o resid deficits Z79.02 terminal worker (current) use of antithrombotics/antiplatelets Office Visit 12/08/2017 [facility] Kecia H53.8 Other visual 3:03p Assoc,artemio Snowden, HERBER disturbances Hospitalists E78.5 Hyperlipidemia, unspecified E03.9 Hypothyroidism, unspecified F33.9 Major depressive disorder, recurrent, unspecified F41.9 Anxiety disorder, unspecified Office Visit 11/20/2017 2:40p [facility] Chriss Quinteros R19.7 Diarrhea, Angelo Romero M.D.,FACP unspecified [place] E03.9 Hypothyroidism, unspecified Office Visit 10/19/2017 2:20p [facility] Chriss Quinteros I10 Essential ( primary) Angelo Romero M.D.,FACP hypertension [address] F33.1 Major depressive disorder, recurrent, moderate E03.9 Hypothyroidism, unspecified Office Visit 09/19/2017 2:40p [facility] Oscar Quinteros I10 Essential ( primary) Angelo Romero M.D.,FACP hypertension [address] F41.9 Anxiety disorder, unspecified Office Visit 03/21/2017 1:30p [facility] Aleksandr Bagley I10 Essential ( primary) Medicine Of K[facility]ina Simon M.D. 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 I15.0 Renovascular hypertension Office Visit 02/13/2017 2:33p [facility] Luis R07.9 Chest pain, Assoc,DEBORAH Ayala unspecified Hospitalists G47.33 Obstructive sleep apnea (adult) (pediatric) 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 I10 Essential (primary) hypertension Office Visit 02/12/2017 2:30p [facility] Javon Coleman, Z86.73 Prsnl hx of Services Of Katerina Brumfield TIA (TIA), and cereb infrc w/o resid deficits I10 Essential (primary) hypertension E78.5 Hyperlipidemia, unspecified Z79.02 terminal worker (current) use of antithrombotics/antiplatelets Office Visit 02/07/2017 2:00p [facility] Oscar Quniteros I15.0 Renovascular Medicine - [place] Romero,FACP hypertension [address] Z23 Encounter for immunization Office Visit 02/06/2017 1:30p [facility] DEBORAH Damon G45.8 Oth transient Of [facility] cerebral ischemic attacks and related synd I25.10 Athscl heart disease of [place] coronary artery w/o ang pctrs I10 Essential (primary) hypertension E78.5 Hyperlipidemia, unspecified Office Visit 01/31/2017 1:40p [facility] Oscar Quinteros G45.8 Oth transient Medicine Barbara Romero M.D.,FACP cerebral Rd ischemic attacks and related synd I10 Essential (primary) hypertension E78.5 Hyperlipidemia, unspecified Office 01/26/2017 Neurohospitalist Javon G45.9 Transient Visit 2:08p Clinic Brissa Coleman cerebral ischemic attack, unspecified I10 Essential (primary) hypertension Z79.02 terminal worker (current) use of antithrombotics/antiplatelets Office Visit 01/26/2017 12:56p [facility] Enoc Figueroa, G45.8 Oth transient Assocartemio M.D. cerebral Hospitalists ischemic attacks and related synd E78.5 Hyperlipidemia, unspecified I25.10 Athscl heart disease of [place] coronary artery w/o ang pctrs I10 Essential (primary) hypertension Office Visit 01/25/2017 [facility] Roby I63.9 Cerebral 12:55p Assoc,artemio Shaver, N.P. infarction, Hospitalists unspecified E78.5 Hyperlipidemia, unspecified I25.10 Athscl heart disease of [place] coronary artery w/o ang pctrs I10 Essential (primary) hypertension Office 01/25/2017 Neurohospitalist Javon G45.9 Transient Visit 2:03p David Coleman M.D. 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 F33.1 Major depressive disorder, recurrent, moderate Office Visit 09/01/2016 11:17a [facility], R42 Dizziness and Assoc,pc HERBER [place] Hospitalists Z86.73 Prsnl hx of TIA (TIA), and cereb infrc w/o resid deficits I25.10 Athscl heart disease of [place] coronary artery w/o ang pctrs G47.33 Obstructive sleep apnea (adult) (pediatric) Office Visit 08/31/2016 [facility] R42 Dizziness and 11:16a Assoc,pc DEBORAH Meier [place] Hospitalists Z86.73 Prsnl hx of TIA (TIA), and cereb infrc w/o resid deficits I25.10 Athscl heart disease of [place] coronary artery w/o ang pctrs G47.33 Obstructive sleep apnea (adult) (pediatric) Office Visit 08/22/2016 [place] Qutaybeh S. I35.0 Nonrheumatic 3:00p Cardiology Brissa Hahn aortic (valve) stenosis I10 Essential (primary) hypertension I25.10 Athscl heart disease of [place] coronary artery w/o ang pctrs I34.0 Nonrheumatic mitral (valve) insufficiency Office Visit 02/02/2016 2:00p [facility] Qutaybeh S. I10 Essential Brissa Hahn (primary) hypertension I25.10 Athscl heart disease of [place] coronary artery w/o ang pctrs I34.0 Nonrheumatic mitral (valve) insufficiency I35.0 Nonrheumatic aortic (valve) stenosis Office Visit 08/16/2015 8:45a Orthopedic Temi Rivera, Z96.652 Presence of left Services Of M.Aldair artificial knee C.M.A. joint Office Visit 06/01/2015 10:45a [facility] Quirino S. I63.511 Cereb infrc d/t Services Of Katerina Giles M.D. unsp occls or stenos of right mid cereb art Office Visit 05/10/2015 10:45a Orthopedic Temi Rivera, Z47.1 Aftercare Services Of Brissa following joint C.M.A. replacement surgery Z96.652 Presence of left artificial knee joint Office Visit 02/03/2015 [facility] Quirino Rodriguez 434.91 Occlusion 10:00a David Giles M.D. Cerebral Artery Unspec W/ Cerebral Infarc Office Visit 10/28/2014 Neurohospitalist Beck Milner 434.91 Occlusion 9:47a Clinic Cerebral Artery Unspec W/ Cerebral Infarc Office Visit 10/11/2014 Neurohospitalist Quirino Rodriguez 434.91 Occlusion 3:00p David Giles M.D. Cerebral Artery Unspec W/ Cerebral Infarc 435.9 TIA Ischemia Cerebral Transient Unspec 414.01 Coronary Atherosclerosis [place] Office Visit 10/11/2014 7:08p [facility] [place]e 434.91 Occlusion Assoc,artemio Gandara M.D. Cerebral Artery Hospitalists Unspec W/ Cerebral Infarc 401.9 Hypertension Unspec 244.9 Hypothyroidism Other Unspec Office Visit 10/10/2014 Neurohospitalist Quirino Rodriguez 434.91 Occlusion 2:34p David Giles M.D. Cerebral Artery Unspec W/ Cerebral Infarc 435.9 TIA Ischemia Cerebral Transient Unspec Office Visit 10/10/2014 7:07p [facility] Loc 434.91 Occlusion Assocartemio M.D. Cerebral Artery Hospitalists Unspec W/ Cerebral Infarc 401.9 Hypertension Unspec 244.9 Hypothyroidism Other Unspec 272.4 Hyperlipidemia Other Unspec Office Visit 10/09/2014 7:06p [facility] Enoc Figueroa 434.91 Occlusion Assocartemio M.D. Cerebral Artery Hospitalists Unspec W/ Cerebral Infarc 401.9 Hypertension Unspec 244.9 Hypothyroidism Other Unspec 272.4 Hyperlipidemia Other Unspec Office Visit 06/05/2014 [place] Olaf S. 414.01 Coronary 3:20p Cardiology Brissa Hahn Atherosclerosis [place] V45.82 Percutaneous Transluminal Coronary Angioplas Postsurg Status 401.1 Hypertension Benign 424.0 Mitral Valve Disorder Office Visit 05/04/2014 11:30a Orthopedic Temi 715.96 Osteoarthrosis Services Vilma Rivera M.D. Unspec Genlzd Or C.M.A. Localized Lower Leg 719.46 Pain Joint Lower Leg Office Visit 02/10/2014 Sam Babin S. 414.01 Coronary 5:00p Santa Hahn M.D. Atherosclerosis [place] V45.82 Percutaneous Transluminal Coronary Angioplas Postsurg Status 401.1 Hypertension Benign Office Visit 02/07/2014 Sam Babin S. 414.9 Ischemic Heart 10:03a Santa Hahn M.D. Disease Chronic Unspec Office Visit 02/06/2014 Sam Babin S. 794.39 Cardiovascular 3:22p Santa Hahn M.D. Study Other Abnormal 794.31 Electrocardiogram (ECG) (EKG) Abnormal 414.9 Ischemic Heart Disease Chronic Unspec Office Visit 01/28/2014 Sam Babin S. 414.01 Coronary 1:20p Santa Hahn M.D. Atherosclerosis [place] 424.0 Mitral Valve Disorder 424.1 Aortic Valve Disorder V45.82 Percutaneous Transluminal Coronary Angioplas Postsurg Status Office Visit 01/22/2014 Sam Qutarun S. 414.01 Coronary 11:30a Santa Hahn M.D. Atherosclerosis [place] 424.0 Mitral Valve Disorder 424.1 Aortic Valve Disorder V45.82 Percutaneous Transluminal Coronary Angioplas Postsurg Status Office Visit 11/14/2013 Sam Babin S. 414.01 Coronary 8:20a Santa Hahn M.D. Atherosclerosis [place] 424.0 Mitral Valve Disorder 397.0 Tricuspid Valve Disease 424.1 Aortic Valve Disorder 401.0 Hypertension Malignant 272.2 Hyperlipidemia Mixed Office Visit 10/06/2013 10:00a Orthopedic Services Temisantino Rivera, 719.46 Pain Joint Of C.M.ADana [place]um[place] Lower Leg 715.96 Osteoarthrosis Unspec Genlzd Or Localized Lower Leg Office Visit 07/24/2013 Sam Babin S. 414.01 Coronary 3:40p Santa Hahn M.D. Atherosclerosis [place] 424.0 Mitral Valve Disorder 397.0 Tricuspid Valve Disease 424.1 Aortic Valve Disorder 785.2 Murmur Cardiac Undiagnosed Office Visit 07/18/2013 11:30a [facility] Olaf SDana 786.50 Pain Chest Brissa Hahn Unspec 786.05 Shortness Of Breath 794.39 Cardiovascular Study Other Abnormal Office Visit 07/04/2013 [place] Olaf S. 414.01 Coronary 4:00p Cardiology Brissa Hahn Atherosclerosis [place] 786.50 Pain Chest Unspec 424.0 Mitral Valve Disorder 397.0 Tricuspid Valve Disease 424.1 Aortic Valve Disorder Office Visit 07/02/2013 9:30a [facility] Olaf Rodriguez 786.50 Pain Chest Brissa Hahn Unspec 414.9 Ischemic Heart Disease Chronic Unspec Office Visit 06/23/2013 [facility] Olaf Rodriguez 414.01 Coronary 1:40p Cardiology Brissa Hahn Atherosclerosis [place] 786.50 Pain Chest Unspec 424.0 Mitral Valve Disorder 397.0 Tricuspid Valve Disease 424.1 Aortic Valve Disorder 785.2 Murmur Cardiac Undiagnosed 782.3 Edema Office Visit 02/26/2013 Sam Rodriguez 414.01 Coronary 3:00p Santa Hahn M.D. Atherosclerosis [place] 412 Myocardial Infarction Old 424.1 Aortic Valve Disorder 424.0 Mitral Valve Disorder Office Visit 01/21/2013 9:15a Leslee Marrero 996.78 Complication Due Services Of Brissa To Internal C.M.ADana Orthopedic Device Implant Other 715.96 Osteoarthrosis Unspec Genlzd Or Localized Lower Leg V43.65 Knee Replacement By Other Means 996.77 Complication Due To Internal Joint Prosthesis Office Visit 01/07/2013 Leslee Marrero 996.78 Complication Due To 9:30a Services Of Oswald Brumfield Internal Orthopedic Device Implant Other Office Visit 08/17/2012 [facility] Patricia Whelan, 276.8 Hypopotassemia 1:23p Assoc,pc N.P. Hospitalists 780.97 Altered Mental Status Office Visit 06/08/2012 11:51a [facility] Enoc Figueroa, 786.51 Pain Precordial Assoc,artemio Brumfield Hospitalists 401.9 Hypertension Unspec 272.2 Hyperlipidemia Mixed 285.9 Anemia Unspec Office Visit 06/07/2012 [place] Olaf S. 414.01 Coronary 2:00p Cardiology Brissa Hahn Atherosclerosis [place] 401.1 Hypertension Benign 434.11 Cerebral Embolism W/ Cerebral Infarc Office Visit 06/07/2012 11:50a [place] Thom Benjamin 786.51 Pain Precordial Assoc,artemio Moeller D.O. Hospitalists 401.9 Hypertension Unspec 272.2 Hyperlipidemia Mixed 285.9 Anemia Unspec Office Visit 05/02/2012 8:30a [facility] Internal Shauna Chávez, 836.0 Dislocation Knee Medicine - N.PDana Tear Of Medial Sylvester Cartilage Or Meniscus Curren 786.03 Apnea 414.01 Coronary Atherosclerosis [place] 401.1 Hypertension Benign 434.11 Cerebral Embolism W/ Cerebral Infarc 272.2 Hyperlipidemia Mixed V72.84 Examination Preoperative Unspec 244.9 Hypothyroidism Other Unspec Office Visit 04/29/2012 8:30a Orthopedic Neymar Marrero, 836.0 Dislocation Knee Services Of Brissa Tear Of Medial C.M.A. Cartilage Or Meniscus [facility] Office Visit 04/16/2012 2:30p Orthopedic Neymar Marrero, 715.36 Osteoarthrosis Services Of Brissa Localzd Not Spec C.M.A. Prime Or 2Ndy Lower Leg 727.49 Cyst Synovial Other 719.06 Effusion Joint Lower Leg Office Visit 03/27/2012 3:40p Katerina Guerrero 729.5 Pain In Limb Angelo Nevarez M.D. [place] Office Visit 03/22/2012 10:20a [facility] Yash Guerrero 719.46 Pain Joint Angelo Nevarez M.D. Lower Leg [place] 729.5 Pain In Limb Office Visit 10/19/2011 Katerina Guerrero 787.91 Diarrhea 10:20a Angelo Nevarez M.D. [place] Office Visit 10/06/2011 Sam Babin S. 414.01 Coronary 10:40a Cardiology Mita Hahn M.D. [place] 401.1 Hypertension Benign 272.4 Hyperlipidemia Other Unspec 424.0 Mitral Valve Disorder 424.1 Aortic Valve Disorder Office Visit 09/20/2011 2:20p [facility] Oscar Nevarez, 787.91 Diarrhea Angelo Pathak M.D. 434.11 Cerebral Embolism W/ Cerebral Infarc Office Visit 09/04/2011 Sam Qutaybsugey S. 401.1 Hypertension 2:30p Cardiology Brissa Hahn Benign 414.01 Coronary Atherosclerosis [place] 794.31 Electrocardiogram (ECG) (EKG) Abnormal Office Visit 07/21/2011 Sam Babin S. 401.1 Hypertension 10:00a Cardiology Brissa Hahn Benign 272.2 Hyperlipidemia Mixed 414.01 Coronary Atherosclerosis [place] 794.31 Electrocardiogram (ECG) (EKG) Abnormal 424.0 Mitral Valve Disorder 424.1 Aortic Valve Disorder 434.11 Cerebral Embolism W/ Cerebral Infarc Office Visit 07/13/2011 10:00a [facility] Yash E. 434.11 Cerebral Medicine - Brissa Nevarez Embolism W/ Sylvester Cerebral Infarc 401.1 Hypertension Benign 272.2 Hyperlipidemia Mixed 414.01 Coronary Atherosclerosis [place] Office Visit 01/04/2011 10:00a DO Not Use [facility] Yash E. V70.0 Examination AT Mynor Nevarez M.D. General Medical Routine AT [facility] 401.1 Hypertension Benign 414.01 Coronary Atherosclerosis [place] 272.0 Hypercholesterolemia Pure 790.21 Impaired Fasting Glucose 244.9 Hypothyroidism Other Unspec 724.1 Pain Thoracic Spine 530.81 Esophageal Reflux Office Visit 07/06/2010 10:20a DO Not Use [facility] Yash E. 401.1 Hypertension Benign AT Mynor Nevarez M.D. 414.01 Coronary Atherosclerosis [place] 272.0 Hypercholesterolemia Pure 790.21 Impaired Fasting Glucose Office Visit 02/16/2010 3:00p DO Not Use [facility] Yash E. 401.1 Hypertension Benign AT Mynor Nevarez M.D. 272.2 Hyperlipidemia Mixed 414.01 Coronary Atherosclerosis [place] 244.9 Hypothyroidism Other Unspec Office Visit 02/10/2010 11:00a DO Not Use [facility] Yash E. V72.81 Examination AT Mynor Nevarez M.D. Preoperative Cardiovascular 401.1 Hypertension Benign 272.2 Hyperlipidemia Mixed 414.01 Coronary Atherosclerosis [place] 244.9 Hypothyroidism Other Unspec Office Visit 05/04/2009 2:00p DO Not Use [facility] Yash E. 401.1 Hypertension Benign AT Mynor Nevarez M.D. 272.2 Hyperlipidemia Mixed 414.01 Coronary Atherosclerosis [place] 244.9 Hypothyroidism Other Unspec 311 Depressive Disorder Not Elsewhere Spec 787.20 Dysphagia, Unspecified Office Visit 03/30/2008 [facility] Yash E. 465.9 URI Upper Respiratory 1:45p Assoc AT Brissa Nevarez Infections Acute Unspec [facility] [place] Office Visit 10/10/2007 [facility] Yash E. 272.0 Hypercholesterolemia Pure 10:00a Assoc AT Brissa Nevarez [facility] 414.01 Coronary Atherosclerosis [place] 401.1 Hypertension Benign Office Visit 04/10/2007 10:45a [facility] Yash E. 272.2 Hyperlipidemia Mixed Assoc AT Brissa Nevarez [facility] 244.9 Hypothyroidism Other Unspec 796.2 Blood Pressure Reading Elevated W/O Hypertension 414.01 Coronary Atherosclerosis [place] Office Visit 03/25/2007 [facility] Yash E. 272.0 Hypercholesterolemia Pure 2:45p Assoc AT Brissa Nevarez [facility] 414.01 Coronary Atherosclerosis [place] V04.81 Need For Prophylactic Vaccination & Inoculation/Influenza Plan of Treatment Future Appointment(s):09/26/2018 10:00 am - Mulu Blackwell NP at [facility] Mechavlbfqhkdrfl80/09/2019 10:15 am - Javon Coleman M.D. at [place]10/02/2018 2:40 pm - ROBERTH Crow at [facility] - [address]
--- OUTSIDE RECORDS SUMMARY | 2018-07-01 12:19 | XMS REPORT | Continuity of Care Document ---
:1935 External Reference #:[id number] Author Name Jessica Dailey Care Team Providers Name Role Phone Chriss Romero MD Primary Care Physician Unavailable Payers Type Date Identification Numbers Payment Provider Subscriber Effective: Policy Number: [id number] Medicare Huma Blue 2001 PayID: [id number] [address] [place] [address] Policy Number: [id number] [facility] Huma Blue PayID: [id number] [address] [place] [address] Expires: 2009 Policy Number: [id number] [facility] Huma Blue PayID: [id number] [address] [place] [address] Advance Directives Type Date Description Status Comment Other Directive 11/20/2017 Health Care Proxy Current and Verified Problems Date Description Provider Status Onset: 07/13/2011 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 Active Onset: 07/13/2011 Coronary arteriosclerosis Yash Nevarez M.D. Active Onset: 10/06/2011 Hyperlipidemia Luma Avila M.D. 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 Recreational Drug Use Denies Drug Use Smoking Status Reviewed: 06/10/18 Patient is a former patient quit when [...] Zsofia 2017 s tablet by Sohail, mouth 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 every night at bedtime as needed insomnia Lorazepam 05/01/ Active Tablets 0.5mg 60tabs 1 tab by F41.9 Zsofia 2018 mouth 2x Sohail, daily as 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 needed for anxiety Omeprazole 03/28/ Active Capsules [...] Chriss Supplies 2018 supplies - jayne Cabrera M.D.,[facility] cushion, tubing, filters, for sleep apnea R06.02 Clopidogrel 03/14/2017 Active Tablets 75mg 90tabs Take 1 Ramila Bisulfate Tablet By Brissa Mansfield Mouth Every Day Atenolol 02/16/2017 Active Tablets 50mg 90tabs Take 1 Yash Cox. Tablet By Brissa Nevarez Mouth Every Day Trazodone HCL Active Tablets 50mg 90tabs 1 tablet at Balwinder Quinteros bedtime Brissa Romero,[facility] Aspirin Active Tablets DR 325mg 1 by mouth Unknown every day Atorvastatin Active Tablets 80mg 30tabs 1 by mouth E78. Seven Quinteros Calcium every day 5 Brissa Romero,[facility] Proscar Active Tablets 5mg 1 by mouth Unknown every day Flomax Active Capsules 0.4mg 1 by mouth Unknown at bedtime Escitalopram Active Tablets 10mg Take 1 F33. Unknown Oxalate Tablet By 1 Mouth Every Day I69.315 Lisinopril Active Tablets 10mg 1 by mouth Unknown every day Lisinopril 09/19/2017 - Hx Tablets 20mg 90tabs 1 by mouth Chriss 11/20/2017 every day Aldair Romero M.D.,[facility] Levothyroxine 09/10/2017 - Hx Tablets 137mcg 30tabs 1 by mouth Balwinder Terry Sodium 11/08/2017 every day Aldair Romero M.D.,[facility] Omeprazole 02/15/2017 - Hx Capsules DR 20mg 30caps 1 by mouth Other 11/20/2017 every day Ordering Provider Aripiprazole 02/15/2017 - Hx Tablets 2mg 1/2 tab q day Other 09/10/2017 Ordering Provider Amlodipine 02/07/2017 - Hx Tablets 5mg 30tabs Take 1 Tablet Chriss Besylate 09/10/2017 By Mouth Frieda Cabrera M.D.,[facility] Ezetimibe 02/06/2017 - Hx Tablets 10mg 30tabs 1 tab by E7 Qutaybeh 11/20/2017 mouth every 8. S. day. 5 Maghaydlopez, M.D. Lisinopril 01/31/2017 - Hx Tablets 10mg 90tabs take 1 tablet Chriss 09/19/2017 by mouth Aldair Romero, every day Brissa,FACRajinder Levothyroxine 01/30/2017 - Hx Tablets 150mcg 30tabs 1 by mouth Balwinder Terry Sodium 09/10/2017 every day Aldair Romero M.D.,[facility] Bupropion HCL 01/30/2017 - Hx Tablets ER [...] Hx Tablets .15 90tabs 1 po qd Yahs Guerrero 01/04/2011 Brissa Nevarez Cardizem LA - Hx Tablets ER 180mg 90tabs 1 po qd Yash Guerrero 07/10/2008 24HR Brissa Nevarez Zoloft - Hx Tablets 50mg 90tabs 1 po qd Yash Guerrero 05/04/2009 Brissa Nevarez Zetia - Hx Tablets 10mg 90tabs 1 PO QHS Latrell, 10/10/2007 MD Kristian Lipitor - Hx [...] Chriss 05/01/2018 mouth twice a 1. [place], day as needed 9 M.D.,FACP Iron Supplement [...] 1 Chriss 11/20/2017 Capsule By Aldair Romero, Mouth Every M.D.,FACP Day Amphetamine-Dex - Hx Tablets [...] Code Status Date Vaccine Reaction Lot # [id number] Given 02/28/2018 Fluzone High Dose 56137 Given 10/16/2017 Zoster (Shingles) Vaccine (HZV), Recombinant, Subunit, Adjuvanted 01037 Given 02/07/2017 Influenza Virus Vaccine, [id number] Quadrivalent, Split, Preservative Free 59554 Given 02/07/2017 Pneumococcal Conjugate Vaccine pt tolerated well [id number] Valent For Intramuscular Use Q2037 Given 03/09/2012 Fluvirin Im 3Yrs And Older Q2038 Given 02/17/2011 Fluzone Vaccine [id number] 93143 Given 03/25/2010 Influenza Virus 3Yrs & Over [id number] 81059 Given 03/25/2007 Influenza Virus 3Yrs & Over 71573 Given 03/25/2007 Influenza Virus 3Yrs & Over 19166 Given 10/12/2002 Td (History By Patient) 98170 Given 11/11/2001 Pneumovax (History By Patient) Vital Signs Date Vital Result Comment 06/10/2018 1:27pm Height 65 inches 5'5" Weight [...] Result H/L Range Note Urine Drug 05/20/2018 [facility] Amphetamine Ur None Detected None Detect SCR ED & [address] [place] [address] [phone] Barbiturates Urine Screen None Detected None Detect Benzodiazepine Urine Screen None Detected None Detect Urine Cannabinoids Screen None Detected None Detect Urine Cocaine Screen None Detected None Detect Urine Opiates Screen None Detected None Detect Urine Phencyclidine Screen None Detected None Detect 1 CBC Auto Diff 05/20/2018 [facility] White Blood 6.4 10^3/uL N 3.5-10.[address] [place] [address] [phone] Red Blood Count 4.31 10^6/uL N 4.00-5.40 [...] Red Blood Cells % 0 Inr/Protime 05/20/2018 [facility] Inr 0.96 N 0.77-1.02 [address] [place] [address] [phone] Laboratory test 05/20/2018 [facility] Lactic Acid 1.1 mmol/L N 0.5-2.0 2 finding [address] [place] [address] [phone] Troponin-I (TnI) 0.00 ng/mL <0.04 3 Comp Metabolic Panel 05/20/2018 [facility] Sodium 142 mmol/L N 135-145 [address] [place] [address] [phone] Potassium 3.7 mmol/L N 3.5-5.0 Chloride 107 [...] Egfr 110.7 >60 4 Laboratory test 05/20/2018 [facility] Alcohol < 10 mg/dL N < 10 finding [address] [place] [address] [phone] Urinalysis Profile 05/20/2018 [facility] Urine Color Yellow [address] [place] [address] [phone] Urine Appearance Cloudy Urine Specific [place] 1.017 N 1.010-1.030 Urine pH 7.0 N 5-9 Urine Urobilinogen Negative Negative Urine Ketones Negative Negative Urine Protein Negative Negative Urine Leukocytes Negative Negative Urine Blood Negative Negative Urine Nitrite Negative Negative Urine Bilirubin Negative Negative Urine Glucose Negative Negative Laboratory test 03/06/2018 [facility] TSH (Thyroid 0.60 mcIU/mL N 0.34-5.[address] Stim Horm) [place] [address] [phone] Hemoglobin A1c (Glyco HGB) 6.2 % High 4.0-5.6 5 Laboratory test 01/01/2018 [facility] TSH (Thyroid 0.83 mcIU/mL N 0.34-5.[address] Stim Horm) [place] [address] [phone] Hemoglobin A1c (Glyco HGB) 6.1 % High 4.0-5.6 6 Inr/Protime 12/08/2017 [facility] Inr 0.94 N 0.77-1.[address] [place] [address] [phone] CBC Auto Diff 12/08/2017 [facility] White Blood 5.3 10^3/uL N 3.5-10.[address] [place] [address] [phone] Red Blood Count 4.54 10^6/uL N 4.00-5.40 [...] Blood Cells % 0 Laboratory test 12/08/2017 [facility] Lactic Acid 1.5 mmol/L N 0.5-2.0 7 finding [address] [place] [address] [phone] Comp Metabolic 12/08/2017 [facility] Sodium 140 mmol/L N 135- 145 Panel [address] [place] [address] [phone] Potassium 3.4 mmol/L Low 3.5-5.0 Chloride 100 [...] Non- 86.5 >60 Egfr 104.7 >60 8 Urine Culture And 12/08/2017 [facility] Urine Culture SEE RESULT [address] [place] [address] [phone] Urinalysis Profile 12/08/2017 [facility] Urine Color Yellow [address] [place] [address] [phone] Urine Appearance Cloudy Urine Specific [place] 1.016 N 1.010-1.030 Urine pH 7.0 N [...] Cell Present Abnormal Absent Laboratory test 12/08/2017 [facility] Troponin-I (TnI) 0.00 ng/ mL <0.[address] [place] [address] [phone] TSH (Thyroid Stim Horm) 0.75 mcIU/mL N 0.34-5.60 Magnesium 2.1 mg/dL N 1.9-2.7 Hemoglobin A1c (Glyco HGB) 6.6 % High 4.0-5.6 10 Laboratory test 11/21/2017 [facility] Stool Culture SEE RESULT 11, [address] [place] [address] [phone] C Difficile PCR SEE RESULT BELOW 13 Stool Calprotectin 293 g/G Abnormal 14 O&P Ova & Parasites Screen SEE RESULT BELOW 15 Laboratory test 11/02/2017 [facility] TSH (Thyroid 0.18 Low 0.34-5.[address] Stim Horm) mcIU/[place] [address] [phone] Hemoglobin A1c (Glyco HGB) 6.3 % High 4.0-5.6 16 Laboratory test 09/17/2017 [facility] Lactic Acid 0.7 mmol/L N 0.5-2.0 [address] [place] [address] [phone] CBC Auto Diff 09/17/2017 [facility] White Blood 6.5 10^3/uL N 3.5-10.[address] [place] [address] [phone] Red Blood Count 4.56 10^6/uL N 4.0-5.4 [...] Blood Cells % 0.1 Comp Metabolic 09/17/2017 [facility] Potassium 3.3 mmol/L Low 3.5-5.0 Panel [address] [place] [address] [phone] Chloride 105 mmol/L N 101-111 Co2 Carbon [...] Egfr Non- 85.4 >60 Egfr 109.8 >60 18 Sodium 142 mmol/L N 139-145 Anion Gap 7 mmol/L N 2-11 Laboratory test 09/17/2017 [facility] Troponin-I (TnI) 0.01 ng/ mL <0.04 finding [address] [place] [address] [phone] TSH (Thyroid Stim Horm) 0.02 mcIU/mL Low 0.34-5.60 Lipid Profile 08/30/2017 [facility] Triglycerides 79 mg/dL 19 (Trig/Chol/HDL) [address] [place] [address] [phone] Cholesterol 122 mg/dL 20 HDL Cholesterol 43.4 mg/dL 21 LDL Cholesterol 63 mg/dL 22 Basic Metabolic Panel 08/30/2017 [facility] Sodium 142 mmol/L N 139-145 [address] [place] [address] [phone] Potassium 3.6 mmol/L N 3.5-5.0 Chloride 104 mmol/L N 101-111 Co2 Carbon Dioxide 30 mmol/L N 22-32 Anion Gap 8 mmol/L N 2-11 Glucose 123 mg/dL High 70-100 Blood Urea Nitrogen 17 mg/dL N 6-24 Creatinine 0.94 mg/dL N 0.67-1.17 BUN/Creatinine Ratio 18.1 N 8-20 Calcium 8.8 mg/dL N 8.6-10.3 Egfr Non- 77.0 >60 Egfr 99.1 >60 23 Laboratory test 08/30/2017 [facility] Vitamin B12 310 pg/mL N 180-9[address] [place] [phone] TSH (Thyroid Stim Horm) 0.15 mcIU/mL Low 0.34-5.60 25 Laboratory test 04/17/2017 [facility] Renin <0.6 ng/mL/h [address] [place] [phone] Laboratory test 04/17/2017 [facility] Renin <0.6 ng/mL/h [address] [place] [phone] Laboratory test 02/13/2017 [facility] Lactic Acid 1.3 mmol/L N 0.5-2. [address] [place] [address] 0 [place] [address] [phone] CBC Auto Diff 02/13/2017 [facility] White Blood 5.9 10^3/uL N 3.5-[address] [place] [address] Count .8 [place] [address] [phone] Red Blood Count 4.47 10^6/uL N 4.0-5.4 [...] % 0.1 N Comp Metabolic Panel 02/13/2017 [facility] Sodium 140 mmol/L N 133-145 [address] [place] [address] [phone] Potassium 3.7 mmol/L N 3.5-5.0 Chloride 104 [...] 111.5 N >60 29 Laboratory test 02/13/2017 [facility] Troponin-I (TnI) 0.00 ng/ mL N <0.04 finding [address] [place] [address] [phone] Lipid Profile 02/13/2017 [facility] Triglycerides 80 mg/dL N 30 (Trig/Chol/HDL) [address] [place], [place] [address] [phone] Cholesterol 93 mg/dL N 31 HDL Cholesterol 36.8 mg/dL N 32 LDL Cholesterol 40 mg/dL N 33 Basic Metabolic Panel 02/01/2017 [facility] Sodium 140 mmol/L N 133-145 [address] [place] [address] [phone] Potassium 3.9 mmol/L N 3.5-5.0 Chloride 103 mmol/L N 101-111 Co2 Carbon Dioxide 33 mmol/L High 22-32 Anion Gap 4 mmol/L N 2-11 Glucose 123 mg/dL High 70-100 Blood Urea Nitrogen 12 mg/dL N 6-24 Creatinine 0.78 mg/dL N 0.67-1.17 BUN/Creatinine Ratio 15.4 N 8-20 Calcium 9.2 mg/dL N 8.6-10.3 Egfr Non- 95.8 N >60 Egfr 123.2 N >60 34 Lipid Profile 02/01/2017 [facility] Triglycerides 149 mg/dL N 35 (Trig/Chol/HDL) [address] [place], [place] [address] [phone] Cholesterol 178 mg/dL N 36 HDL Cholesterol 47.9 mg/dL N 37 LDL Cholesterol 100 mg/dL N 38 Laboratory test 02/01/2017 [facility] Vitamin B12 310 pg/mL N 180-914 39 finding [address] [place], [place] [address]17 [phone] Basic Metabolic 01/17/2017 [facility] Sodium 140 mmol/L N 133- 145 Panel [address] [place] [address] [phone] Potassium 3.6 mmol/L N 3.5-5.0 Chloride 104 mmol/L N 101-111 Co2 Carbon Dioxide 30 mmol/L N 22-32 Anion Gap 6 mmol/L N 2-11 Glucose 100 mg/dL N 70-100 Blood Urea Nitrogen 17 mg/dL N 6-24 Creatinine 0.90 mg/dL N 0.67-1.17 BUN/Creatinine Ratio 18.9 N 8-20 Calcium 8.7 mg/dL N 8.6-10.3 Egfr Non- 81.2 N >60 Egfr 104.4 N >60 40 Laboratory test 01/17/2017 [facility] Magnesium 2.2 mg/dL N 1.9-2.7 finding [address] [place] [address] [phone] Inr/Protime 02/03/2014 Inr 0.89 N 0.85-1.06 Basic Metabolic 02/03/2014 Sodium 139 mmol/L N 133-145 Panel Potassium 3.8 mmol/L N 3.7-5.6 Chloride 102 [...] N 24.0-36.1 Partial Thrombo Time Inr/Protime 07/11/2013 [facility] Inr 0.97 0.85-1.[address] [place] [address] [phone] Basic Metabolic 07/11/2013 [facility] Sodium 141 mmol/L 133- [address] [place] [address] [phone] Potassium 3.8 mmol/L 3.5-5.0 Chloride 104 mmol/L 101-111 Co2 Carbon Dioxide 31.0 mmol/L 22-32 Anion Gap 6.0 mmol/L 2-11 Glucose 87 mg/dL 70-100 Blood Urea Nitrogen 21 mg/dL 6-24 Creatinine 0.70 mg/dL 0.50-1.40 BUN/Creatinine Ratio 30.0 High 8-20 Calcium 9.1 mg/dL 8.1-9.9 Egfr Non- 109.4 >60 Egfr 140.6 >60 42 CBC Auto Diff 07/11/2013 [facility] White Blood 6.4 10^3/uL 4.8-10.[address] [place] [address] [phone] Red Blood Count 4.20 10^6/uL 4.0-5.4 Hemoglobin [...] Blood Cells % 0 Cath Panel 07/11/2013 [facility] Activated 31.3 24.0-36.[address] [place] [address] Thrombo Time [phone] Laboratory 04/24/2013 [facility] Inr 1.08 High 0.85-1.06 44 test finding [address] [place] [address] [phone] Laboratory 04/21/2013 [facility] Inr 1.24 High 0.85-1.06 45 test finding [address] [place], [place] [address] [phone] Basic 04/08/2013 [facility] Sodium 140 mmol/L 133-[address] [place] [address] [phone] Potassium 3.7 mmol/L 3.5-5.0 Chloride 104 mmol/L 101-111 Co2 Carbon Dioxide 32.0 mmol/L 22-32 Anion Gap 4.0 mmol/L 2-11 Glucose 108 mg/dL High 70-100 Blood Urea Nitrogen 15 mg/dL 6-24 Creatinine 0.80 mg/dL 0.50-1.40 BUN/Creatinine Ratio 18.8 8-20 Calcium 9.0 mg/dL 8.1-9.9 Egfr Non- 94.0 >60 Egfr 120.9 >60 46 Type & Screen 04/08/2013 [facility] Patient Blood Type A Negative [address] [place] [address] [phone] Antibody Screen NEGATIVE Laboratory test 04/08/2013 [facility] Activated 30.4 24.0- 36.1 [address] [place] [address] Thrombo Time [phone] Inr/Protime 04/08/2013 [facility] Inr 0.91 0.85-1.[address] [place], [place] [address] [phone] CBC No Diff 04/08/2013 [facility] White Blood 6.3 10^3/uL 4.8 -10.[address] [place] [address] [phone] Red Blood Count 4.37 10^6/uL 4.0-5.4 Hemoglobin 13.0 g/dL Low 14.0-18.0 Hematocrit 40 % Low 42-52 Mean Corpuscular Volume 92 fL 80-94 Mean Corpuscular Hemoglobin 30 pg 27-31 Mean Corpuscular HGB Conc 33 g/dL 31-36 Red Cell Distribution Width 13 % 10.5-15 Platelet Count 180 10^3/uL 150-450 Mean Platelet Volume 9 um3 7.4-10.4 Urine Microscopic 04/08/2013 [facility] Urine WBC 1+ (<3 None Seen [address] /hpf) [place] [address] [phone] Urine RBC 1+ (<3 /hpf) None Seen Bacteria Urine None Seen None Seen Urinalysis 04/08/2013 [facility] Urine Color Yellow [address] [place] [address] [phone] Urine Appearance Clear Urine Specific [place]on 1.020 1.010-1.030 Urine Esterase Trace Abnormal Negative Urine Nitrate Negative Negative Urine Urobilinogen Negative E.U./dL Negative Urine Protein Negative mg/dL Negative Urine pH 6.5 5-9 Urine Blood Negative Negative Urine Ketones Negative mg/dL Negative Urine Bilirubin Negative Negative Urine Glucose Negative mg/dL Negative Laboratory test 01/21/2013 [facility] Fluid Crystals None Seen [address] [place] [address] [phone] Body Fluid C&S 01/21/2013 [facility] Body Fluid Cult (SEE NOTE) [address] [place] [address] [phone] Body Fluid Cell 01/21/2013 [facility] Body Fluid Synovial Fluid Count [address] [place] [address] [phone] Body Fluid Appearance Cloudy Body Fluid Color Yellow Body Fluid Volume 1.5 mL Body Fluid WBC 67 Body Fluid RBC 2770 Body Fluid Polys 21 Body Fluid Lymph 54 Body Fluid [place] 22 Body Fluid Eosinophil 2 Body Fluid Total Cells Counted 100 Fluid Reviewed By MD (SEE NOTE) 51 Laboratory test 01/07/2013 [facility] C Reactive < 0.5 mg/dL Less than finding [address] Protein 0.5 [place] [address] [phone] CBC Auto Diff 01/07/2013 [facility] White Blood 5.6 10^3/uL 4.8-10.[address] [place] [address] [phone] Red Blood Count 4.30 10^6/uL 4.0-5.4 Hemoglobin [...] Blood Cells % 0 Laboratory test 01/07/2013 [facility] Erythrocyte Sed 18 mm/Hr 0-[address] [place] [address] [phone] CBC With Manual 05/02/2012 [facility] White Blood 9.7 4.8- 10.[address] Count 10^3/[place] [address] [phone] Red Blood Count 4.11 10^6/uL 4.0-5.4 Hemoglobin [...] Morphology Normal Normal Basic Metabolic Panel 05/02/2012 [facility] Sodium 138 mmol/L 133-145 [address] [place] [address] [phone] Potassium 3.3 mmol/L Low 3.5-5.0 Chloride 101 mmol/L 101-111 Co2 Carbon Dioxide 32.0 mmol/L 22-32 Anion Gap 5.0 mmol/L 2-11 Glucose 119 mg/dL High 70-100 Blood Urea Nitrogen 15 mg/dL 6-24 Creatinine 0.80 mg/dL 0.50-1.40 BUN/Creatinine Ratio 18.8 8-20 Calcium 8.4 mg/dL 8.1-9.9 Egfr Non- 94.2 >60 Egfr 121.2 >60 52 Laboratory test 05/02/2012 [facility] Creatine Kinase 110 U/L 0-[address] [place] [address] [phone] Comp Metabolic 03/23/2012 [facility] Sodium 138 133-[address] mmol/[place] [address] [phone] Potassium 3.4 mmol/L Low 3.5-5.0 Chloride 104 [...] Non- 94.2 >60 Egfr 121.2 >60 54 Laboratory test 03/23/2012 [facility] Erythrocyte Sed 41 MM/HR High 0-[address] [place] [address] [phone] CBC Auto Diff 03/23/2012 [facility] White Blood 7.1 4.8-10.[address] Count 10^3/[place] [address] [phone] Red Blood Count 3.86 10^6/uL Low 4.0-5.4 [...] Blood Cells % 0 Laboratory test 03/23/2012 [facility] Uric Acid 3.9 mg/dL 2.6 -7.[address] [place] [address] [phone] CBC Auto Diff 01/24/2012 [facility] White Blood 6.3 CUMM 4.8- 10.[address] [place] [address] [phone] Red Cell Count 3.83 CUMM Low 4.6-6.2 [...] Abs Basophils 0 0-0.2 Laboratory test 01/24/2012 [facility] Iron Total 63 g/dL 45 -182 finding [address] [place] [address] [phone] Ferritin 92 NG/ML 24-336 Vitamin B12 369 pg/mL 180-914 Folic Acid > 25.8 NG/ML See Below 55 Basic Metabolic Panel 01/24/2012 [facility] Sodium 137 mmol/L 135-145 [address] [place] [address] [phone] Potassium 4.2 mmol/L 3.5-5.0 Chloride 103 mmol/L 101-111 Co2 (Carbon Dioxide) 29.0 mmol/L 22-32 Anion Gap 5.0 mmol/L 2-11 56 Glucose 84 mg/dL 70-100 BUN 20 mg/dL 6-24 Creatinine 0.8 mg/dL 0.50-1.40 One Over Creatinine 1.25 BUN/Creatinine Ratio 25.0 High 8-20 Calcium 9.0 mg/dL 8.1-9.9 eGFR Non- 94.2 > 60 eGFR 121.2 > 60 57 Laboratory test 01/24/2012 [facility] TSH 1.02 MIU/ML 0.34- 5.[address] [place] [address] [phone] Surgical 12/13/2011 [facility] Surgical 58 Pathology 101 [facility] Pathology ----- <[place] [address] NOTE> [phone] CBC Auto Diff 10/19/2011 [facility] White Blood 6.6 CUMM 4.8- 10.8 [address] [place] [address] [phone] Red Cell Count 4.25 CUMM Low 4.6-6.2 [...] 0 0-0.2 59 Comp Metabolic Panel 10/19/2011 [facility] Sodium 140 mmol/L 135-145 [address] [place] [address] [phone] Potassium 3.8 mmol/L 3.5-5.0 Chloride 105 mmol/L [...] 105.8 > 60 62 Laboratory test 10/19/2011 [facility] Erythrocyte Sed 13 MM/HR 0-[address] [place] [address] [phone] C Reactive Protein < 0.5 mg/dL Less Than 0.5 TSH 0.82 MIU/ML 0.34-5.60 Laboratory test 10/03/2011 [facility] Stool [address] Culture <SEE NOTE> [place] [address] [phone] CBC Auto Diff 10/02/2011 [facility] White Blood 6.1 CUMM 4.8 - [address] Count 10.8 [place] [address] [phone] Red Cell Count 4.34 CUMM Low 4.6-6.2 Hemoglobin 13.9 g/dL Low 14.0-18.0 Hematocrit 40 % Low 42-52 Mean Corpuscular Volume 93 um3 80-94 Mean Corpuscular Hemoglob 32 pg High 27-31 Mean Corpuscular HGB Cone 34 g/dL 32-36 Redcell Distribution WDTH 13 % 10.5-15 Platelet Count 190 CUMM 150-450 Mean Platelet Volume 9.5 um3 7.4-10.4 64 Comp Metabolic Panel 10/02/2011 [facility] Sodium 138 mmol/L 135-[address] [place] [address] [phone] Potassium 3.4 mmol/L Low 3.5-5.0 Chloride 100 [...] 93.7 > 60 67 Laboratory test 10/02/2011 [facility] Erythrocyte Sed 10 MM/HR 0-[address] [place] [address] [phone] Manual 10/02/2011 [facility] Polysegmented 71 % 38-[address] [place] [address] [phone] Band Neutrophil 1 % 0-8 Lymphocyte 21 % Low 25-47 Monocyte 7 % 0-13 Absolute Neutrophil Count 4.30 RBC Morphology NORMAL Laboratory test 01/04/2011 [facility] Hemoglobin A1c 5.7 5-7 finding Laboratory test 12/27/2010 [facility] Thyroxine 5.9 g/dL 5- [address] [place] [address] [phone] CBC W/Electronic 12/27/2010 [facility] White Blood Count 6.5 CUMM 4.8-10.[address] [place] [address] [phone] Red Cell Count 4.30 CUMM Low 4.6-6.2 [...] Abs Basophils 0 0-0.2 Lipid Panel 12/27/2010 [facility] Cholesterol 165 mg/dL Less Than 200 [address] [place] [address] [phone] Triglyceride 96 mg/dL 40-200 High Density Lipoprotein 43 mg/dL 40-60 69 Cholesterol/HDL Ratio 3.84 AVERAGE 1-4.97 Low Density Lipoprotein 103 mg/dL High Less Than 100 70 CMP Panel 12/27/2010 [facility] Albumin 4.1 GM/DL 3.2-5.2 [address] [place] [address] [phone] Alt (SGPT) 19 U/L 17-63 Calcium 9.1 [...] > [address] [facility] 12/27/2010 [facility] TSH 0.63 MIU/ML 0.34- 5.60 Panel [address] [place] [address] [phone] Laboratory test 07/06/2010 [facility] In House Hemoglobin A1c 6.3 5-7 finding Lipid Profile 04/26/2010 [facility] Triglyceride 83 mg/dL 40- 200 (Trig/Chol/HDL) [address] [place] [address] [phone] Cholesterol 156 mg/dL Less Than 200 74 High Density Lipoprotein 41 mg/dL 40-60 75 Cholesterol/HDL Ratio 3.80 AVERAGE 1-4.97 Low Density Lipoprotein 98 mg/dL Less Than 100 76 Laboratory test finding 04/26/2010 [facility] Ast (Sgot) 25 U/L 12-[address] [place] [address] [phone] Alt (SGPT) 28 U/L 17-63 Basic Metabolic Panel 04/26/2010 [facility] Sodium 140 mmol/L 135-[address] [place] [address] [phone] Potassium 3.8 mmol/L 3.5-5.0 Chloride 103 mmol/L 101-111 Co2 (Carbon Dioxide) 32.0 mmol/L 22-32 Anion Gap 5.0 mmol/L 2-11 77 Glucose 92 mg/dL 70-100 78 BUN 14 mg/dL 6-24 Creatinine 0.90 mg/dL 0.50-1.40 One Over Creatinine 1.10 BUN/Creatinine Ratio 15.6 8-20 Calcium 9.0 mg/dL 8.1-9.9 eGFR Non- 87.9 > 60 eGFR 106.4 > 60 79 Laboratory test 04/26/2010 [facility] Hemoglobin A1c 6.3 % High Less [address] 6[address]0 [place] [address] [phone] Laboratory test 04/13/2010 [facility] PSA,Diagnostic 1.48 0- 4 [address] NG/[place] [address] [phone] CBC With 02/11/2010 [facility] White Blood 6.9 CUMM 4.8-10.8 Electronic Diff [address] [place] [address] [phone] Red Cell Count 4.59 CUMM Low 4.6-6.2 [...] Eosinophils 0.2 0-0.6 Abs Basophils 0 0-0.2 DR [facility] 02/11/2010 [facility] TSH 1.55 MIU/ML 0.34- 5.60 Panel 101 [place], [place] [id number] [phone] Comp Metabolic 02/11/2010 [facility] Sodium 143 mmol/L 135- 145 Panel [address] [place] [address] [phone] Potassium 3.8 mmol/L 3.5-5.0 Chloride 105 mmol/L [...] 106.4 > 60 85 Lipid Profile 02/11/2010 [facility] Triglyceride 203 mg/dL High 40-200 (Trig/Chol/HDL) [address] [place] [address] [phone] Cholesterol 233 mg/dL High Less Than 200 86 High Density Lipoprotein 42 mg/dL 40-60 87 Cholesterol/HDL Ratio 5.55 AVERAGE High 1-4.97 Low Density Lipoprotein 150 mg/dL High Less Than 100 88 Surgical 06/08/2009 [facility] Surgical [address] Pathology <SEE NOTE> [place] [address] [phone] Laboratory 04/14/2009 [facility] PSA,Diagnostic 1.70 NG/ML 0 - [address] [place], [place] [id number] [phone] Thyroxine 04/01/2008 [facility] Free Thyroxine 0.86 NG/ML 0. 91, Free [address] [place] [address] [phone] Lipid Profile 04/01/2008 [facility] Triglyceride 295 mg/dL High 40 (Trig/Chol/HD [address] -2 L) [place] [address] 00 [phone] Cholesterol 165 mg/dL Less Than 200 93 High Density Lipoprotein 33 mg/dL Low 40-60 94 Cholesterol/HDL Ratio 5.00 AVERAGE High 1-4.97 Low Density Lipoprotein 73 mg/dL Less Than 100 95 Comp Metabolic Panel 04/01/2008 [facility] Sodium 141 mmol/L 135-[address] [place], [place] [id number] [phone] Potassium 3.3 mmol/L Low 3.5-5.0 Chloride 106 mmol/L 101-111 Co2 (Carbon Dioxide) 31.0 mmol/L 22-32 Anion Gap 4.0 mmol/L 2-11 96 Glucose 104 mg/dL High 70-100 97 BUN 15 mg/dL 6-24 Creatinine 0.82 mg/dL 0.50-1.40 One Over Creatinine 1.20 BUN/Creatinine Ratio 18.3 8-20 Calcium 9.0 mg/dL 8.1-9.9 98 Total Protein 6.9 GM/DL 6.2-8.1 Albumin 3.8 GM/DL 3.2-5.2 Globulin 3.1 GM/DL 2-4 Albumin/Globulin Ratio 1.2 1-3 Bilirubin Total 0.6 mg/dL 0.4-1.5 Alkaline Phosphatase 67 U/L 39-117 Alt (SGPT) 47 U/L 17-63 Ast (Sgot) 34 U/L 12-42 CBC With 04/01/2008 [facility] White Blood 5.3 CUMM 4.8-10.8 Electronic Diff [address] [place] [address] [phone] Red Cell Count 4.68 CUMM 4.6-6.2 Hemoglobin [...] 0-0.6 Abs Basophils 0 0-0.2 Laboratory test 04/01/2008 [facility] TSH 0.93 MIU/ML 0.34- 5.[address] [place] [address] [phone] PSA Screening 1.42 NG/ML 0-4 99 CBC W/ Electronic 04/04/2007 [facility] White Blood 7.2 CUMM 4.8-10.[address] [place] [address] [phone] Abs Basophils 0 0-0.2 Abs Eosinophils 0.3 [...] WDTH 13 % 10.5-15 Laboratory test 04/04/2007 [facility] PSA Screening 1.58 NG/ML 0-4 100, [address] [place] [address] [phone] TSH 1.33 MIU/ML 0.34-5.60 Lipid Profile 04/04/2007 [facility] Cholesterol/HDL 4.81 1- 4.97 (Trig/Chol/HDL) [address] [place] [address] [phone] Cholesterol 202 mg/dL High Less Than 200 102 Triglyceride 218 mg/dL High 40-200 High Density Lipoprotein 42 mg/dL 40-60 Low Density Lipoprotein 116 mg/dL High Less Than 100 103 Comp Metabolic Panel 04/04/2007 [facility] One Over Creatinine 0.[address] [place] [address] [phone] Anion Gap 6.0 mmol/L 2-11 104 Albumin/Globulin Ratio 1.2 1-3 Albumin 3.8 GM/DL [...] Ratio 14.5 8-20 Creatinine 1.1 mg/dL 0.5-1.4 1 The urine specimen was tested at the listed cutoffs: Drug class test level (ng/mL) Amphetamines 500 Barbiturates 200 Benzodiazepine metabolites 200 Cocaine metabolites 150 Cannabinoids 50 Opiates 300 Pcp 25 Specimen was received without chain of custody. Results should be used for medical purposes only. 2 [facility] Severe Sepsis and Septic Shock [...] in selective patients <6.0%. Please refer to [place] [employer] diabetic care guidelines for further information. 6 Therapeutic target for the treatment of diabetes mellitus patients is <7% HBA1C, and in selective patients <6.0%. Please refer to [place] [employer] diabetic care guidelines for further information. 7 [facility] Severe Sepsis and Septic Shock [...] 5 Kidney failure <15 (or dialysis) 9 SEE RESULT BELOW Name: HUMA BLUE : [address]: Belen Sousa MD Acct: [id number] Unit: [id number] AGE: 82 Location: [place] [address] Re12/09/17 Dis: 12/10/17 SEX: M Status: DIS IN SPEC: [id number] ANJUM: 12/09/17-14[address] [facility] [address]: Huma Holcomb MD REQ: [id number] RECD: 12/09/17 STATUS: DIEUDONNE FERNANDEZ DR: Chriss Romero MD _ SOURCE: URINE [facility]: ORDERED: Urine Culture Procedure Result Reported Site Urine Culture Final 12/11/17- 814 ML No Growth (<1,000 CFU/mL) * ML - Main Lab . END OF REPORT DEPARTMENT OF PATHOLOGY, [address] [place] [address] Jeb Reyes M.D. Director [facility] # [id number] 10 Therapeutic target for the treatment of diabetes mellitus patients is <7% HBA1C, and in selective patients <6.0%. Please refer to [place] [employer] diabetic care guidelines for further information. 11 PATIENT WILL BRING BACK PLAIN CONTAINER ANOTHER DAY STOOL KIT ONLY 12 SEE RESULT BELOW Name: HUMA BLUE : [address]: Balwinder Romero MD Acct: [id number] Unit: [id number] AGE: 82 Location: [facility] Re11/21/17 SEX: M Status: REG REF SPEC: [id number] ANJUM: 11/21/17-[address]: Chriss Romero MD REQ: [id number] RECD: 11/21/17-1055 STATUS: COMP _ SOURCE: STOOL SPDESC: ORDERED: [...] CONTINUED ON NEXT PAGE DEPARTMENT OF PATHOLOGY, [address] [place] [address] Jeb Reyes M.D. Director [facility] # [id number] Patient: HUMA BLUE [id number] (Continued) Specimen: [id number] Collected: 11/21/17-799 Received: 11/21/17-1055 (Continued) Procedure Result [...] is requested. Contact the Microbiology Department at [phone]. TEST LIMITATIONS: As with all diagnostic procedures, [...] . END OF REPORT DEPARTMENT OF PATHOLOGY, [address] [place] [address] Jeb Reyes M.D. Director [facility] # [id number] 13 SEE RESULT BELOW Name: HUMA BLUE : [address]: Balwinder Romero MD Acct: [id number] Unit: [id number] AGE: 82 Location: [facility] Re11/21/17 SEX: M Status: REG REF SPEC: [id number] ANJUM: 11/21/17-[address]: Chriss Romero MD REQ: [id number] RECD: 11/22/17 STATUS: COMP _ SOURCE: STOOL [...] . END OF REPORT DEPARTMENT OF PATHOLOGY, [address] [place] [address] Jeb Reyes M.D. Director [facility] # [id number] Interpretation: Abnormal (>120.0 mcg/g) REFERENCE VALUE <=50.0 (Normal) Test Performed by: [facility] - [address] [address] 15 SEE RESULT BELOW Name: HUMA BLUE : [address]: Balwinder Romero MD Acct: [id number] Unit: [id number] AGE: 82 Location: [facility] Re11/21/17 SEX: M Status: REG REF SPEC: [id number] ANJUM: 11/21/[address]: Chriss Romero MD REQ: [id number] RECD: 11/21/17 STATUS: RES _ SOURCE: STOOL [...] is requested. Contact the Microbiology Department at [phone]. TEST LIMITATIONS: As with all diagnostic procedures, [...] CONTINUED ON NEXT PAGE DEPARTMENT OF PATHOLOGY, [address] [place] [address] Jeb Reyes M.D. Director [facility] # [id number] Patient: HUMA BLUE [id number] (Continued) Specimen: [id number] Collected: 11/21/17-799 Received: 11/21/17 (Continued) Procedure Result [...] . END OF REPORT DEPARTMENT OF PATHOLOGY, [address] [place] [address] Jeb Reyes M.D. Director [facility] # [id number] 16 Therapeutic target for the treatment of diabetes mellitus patients is <7% HBA1C, and in selective patients <6.0%. Please refer to [place] [employer] diabetic care guidelines for further information. 17 [facility] Severe Sepsis and Septic Shock Management Bundle Measure requires all lactic acids initially measuring >2.0 mmol/L be repeated. 18 Because ethnic data is not always readily [...] 15-29 5 Kidney failure <15 (or dialysis) 19 Desirable: <150 Borderline High: 150-199 High: [...] developed and its performance characteristics determined by [facility] in a manner consistent with CLIA requirements. This test has not been cleared or approved by the U.S. Food and Drug Administration. Test Performed by: [facility] - [facility] [address] [place] [id number] 27 REFERENCE VALUE (Peripheral vein specimen) Na-deplete, upright: Mean: 5.9 Range: 2.9-10.8 Na-replete, upright: Mean: 1.0 Range: < or=0.6-3.0 ADDITIONAL INFORMATION Testing performed by Liquid Chromatography-Tandem Mass Spectrometry (LC-MS/MS). This test was developed and its performance characteristics determined by [facility] in a manner consistent with CLIA requirements. This test has not been cleared or approved by the U.S. Food and Drug Administration. Test Performed by: [facility] [address] [place] [address] 28 [facility] Severe Sepsis and Septic Shock [...] 5 Kidney failure <15 (or dialysis) 35 Desirable <150 Borderline high 150-199 High 200-499 Very High >500 36 Desirable <200 Borderline high 200-239 High >239 37 Low <40 Desirable: 40-60 High: >60 38 Desirable: <100 mg/dL Near Optimal: 100-129 mg/dL Borderline High: 130-159 mg/dL High: 160-189 mg/dL Very High: >189 mg/dL 39 Normal Range 180 to 914 Indeterminate Range 145 to 180 Deficient Range <145 40 Because ethnic data is not always [...] 5 Kidney failure <15 (or dialysis) 42 Because ethnic data is not always [...] 5 Kidney failure <15 (or dialysis) 43 labs to be drawn between July 09 - 2013 44 Please note the change in the [...] Synovial (Joint) Fluid 50 RUN DATE: 01/25/13 [facility] LAB LIVE PAGE 1 RUN TIME: 1010 [address] [place], [place] [address] Specimen Inquiry Name: HUMA BLUE : [address]: Neymar Marrero MD Acct: [id number] Unit: [id number] AGE: 77 Location: [facility] Re01/21/13 SEX: M Status: REG REF SPEC: [id number] ANJUM: 01/21/[address] [facility] [address]: Neymar Marrero MD REQ: [id number] RECD: 01/21/13 STATUS: COMP _ SOURCE: JOINT FLUI SPDESC:KNEE LEFT ORDERED: KEREN Lara/HERMELINDO COMMENTS: LEFT KNEE Procedure Result Verified Site Body Fluid Gram Stain Final 01/21/13- 1229 ML 1+ Polys No Organisms Seen Preparation By Direct Smear Body Fluid Culture Final 01/25/13- 1010 ML No Growth Day 4 END OF REPORT * ML=Testing performed at Main Lab DEPARTMENT OF PATHOLOGY, [address] [place] [address] Jeb Reyes M.D. Director [facility] Permit #[id number] 51 Slide and differential reviewed. No bacteria, blasts or other malignant cells seen. REVIEWED BY JEB ERYES MD 52 Because ethnic data is not [...] (or dialysis) 58 ---- RUN DATE: 12/15/11 [facility] NMI LIVE PAGE 1 RUN TIME: 1323 Specimen Inquiry RUN USER: INTERFACE -- Name: HUMA BLUE Status: REG REF Re12/13/11 Age/Sex: 76/M Unit#: [id number] Location: [address] [place] [address].O.B. : [birth year] -- Specimen: [id number] [id number] Spec Date:12/13/11- Roc Dr: Clayton Damon MD Spec Type: SURGICAL [...] polyp (see comment). -- DEPARTMENT OF PATHOLOGY, [address] [place] [address] [facility] Permit #[id number] Brissa Cummings M.D. Insurance Investigator Dir florentin -- -- RUN DATE: 12/15/11 [facility] NMI LIVE PAGE 2 RUN TIME: 1323 Specimen Inquiry RUN USER: INTERFACE -- Name: HUMA BLUE Status: REG REF Re12/13/11 Age/Sex: 76/M Unit#: [id number] Location: [facility] : 36 -- -- CONTINUED -- COMMENT Part 2 shows definitive evidence of lymphocytic colitis. 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 Part 3 (sigmoid nodule) shows colonic mucosa with again evidence of collagenous colitis and with hyperplastic change. Signed Electronically by: IONA DENISE 12/15/11 1323 -- -- DEPARTMENT OF PATHOLOGY, [address] [place] [address] [facility] Permit #[id number] Jeb Reyes M.D. Director Iona Denise M.D. Insurance Investigator Dir florentin -- 59 Lymphopenia % 60 Anion gap measurement may be of limited value in the presence of any alkalosis, especially in a combined acid base disorder. . 61 A metabolite of Naproxen, O-desmethylnaproxen, has been shown to interfere with the Jendrassik-Verdi method for measuring total bilirubin. Samples from [...] <15 (or dialysis) 63 RUN DATE: 10/10/11 [facility] NMI LIVE PAGE 1 RUN TIME: 1455 Specimen Inquiry RUN USER: INTERFACE Name: HUMA BLUE Status: REG REF Re10/03/11 Age/Sex: 76/M Unit#: [id number] Location: [facility] : 36 SPEC #: [id number] ANJUM: 10/03/11 STATUS: COMP REQ #: [id number] RECD: 10/03/[address]: Yash Nevarez III, MD SOURCE: STOOL ENTR: 10/03/[address]: KEYONNAESC: ORDERED: STOOL CULTURE, O P (FULL), O P: GIAR/CRYP, C. DIFF AMP DNA, STL LACTOF QUERIES: MEDENT REQUISITION # [id number] ACT WKST: P 10/07/11 #1 Procedure Result [...] ANTIGEN NEGATIVE BY IMMUNOASSAY DEPARTMENT OF PATHOLOGY, [address] [place] [address] [facility] Permit #[id number] Brissa Cummings M.D. Mental Health Tech RUN DATE: 10/10/11 [facility] NMI LIVE PAGE 2 RUN TIME: 4131 Specimen Inquiry RUN USER: INTERFACE Name: HUMA BLUE Status: REG REF Re10/03/11 Age/Sex: 76/M Unit#: [id number] Location: [facility] : 36 -- -- CONTINU ED [...] is requested. Contact the Microbiology Department at [phone]. TEST LIMITATIONS: As with all diagnostic procedures, [...] LACTOFERRIN POSITIVE BY IMMUNOASSAY DEPARTMENT OF PATHOLOGY, [address] [place] [address] [facility] Permit #[id number] Brissa Cummings M.D. Mental Health Tech RUN DATE: 10/10/11 [facility] NMI LIVE PAGE 3 RUN TIME: 7615 Specimen Inquiry RUN USER: INTERFACE Name: HUMA BLUE Status: REG REF Re10/03/11 Age/Sex: 76/M Unit#: [id number] Location: [facility]. : 37 -- -- CONTINU ED Procedure Result Verified Site FECAL LACTOFERRIN (STOOL WBC) Final (continued) 10/03/11- 1453 TEST LIMITATIONS: Assay detects elevated levels of lactoferrin released from fecal leukocytes as a marker of intestinal inflammation. The test may not be appropriate in immunocompromised persons. Fecal samples from breast fed infants should not be used with this assay. [facility] Permit #[id number] [facility] [employer] [place] [address] DEPARTMENT OF PATHOLOGY, [address] [place] [address] [facility] Permit #[id number] Jeb Reyes M.D. Director Iona Denise M.D. Mental Health Tech [address] 1 65 Anion gap measurement may be of limited value in the presence of any alkalosis, especially in a combined acid base disorder. . 66 A metabolite of Naproxen, O-desmethylnaproxen, has been shown to interfere with the Jentati-Verdi method for measuring total bilirubin. Samples from [...] has been shown to interfere with the Jendrassik-Verdi method for measuring total bilirubin. Samples from [...] change was based on recommendations from the [place] [employer]. 79 Because ethnic data is [...] IN SELECTIVE PATIENTS <6.0%. PLEASE REFER TO [place] [employer] DIABETIC CARE GUIDELINES FOR FURTHER INFORMATION. 81 * SERUM LEVELS OF PSA MEASURED USING THE [employer] ACCESS HYBRITECH IMMUNOASSAY SHOULD NOT BE INTERPRETED [...] change was based on recommendations from the [place] [employer]. 84 A metabolite of Naproxen, O-desmethylnaproxen, has been shown to interfere with the Jendrassik-Verdi method for measuring total bilirubin. Samples from [...] 189 MG/DL 89 ---- RUN DATE: 06/10/09 [facility] NMI LIVE PAGE 1 RUN TIME: 1526 Specimen Inquiry RUN USER: INTERFACE -- Name: HUMA BLUE Status: REG REF Re06/08/09 Age/Sex: 73/M Unit#: [id number] Location: [facility]. : 37 -- Specimen: [id number] [id number] Spec Date: 06/08/[address]: Clayton liang MD Spec Type: SURGICAL P Received: 06/09/0958 Copies to: Yash Nevarez III, MD SPECIMEN [...] 06/10/09 1524 -- -- DEPARTMENT OF PATHOLOGY, [address] [place] [address] [facility] Permit #[id number] Jeb Reyes M.D. Director Iona Denise M.D. Insurance Investigator Dir florentin -- 90 * SERUM LEVELS [...] be directed to your doctor. FASTING 92 PLEASE NOTE NEW REFERENCE RANGES. 93 CHOLESTEROL INTERPRETATION: Desirable: Less than 200 MG/DL Borderline-High Risk: 200-239 MG/DL High-Risk: 240 MG/DL and over 94 HDL INTERPRETATION: Undesirable: High Risk: Less than 40 MG/DL Desirable: Low Risk: Greater than 60 MG/DL 95 LDL INTERPRETATION: Low Risk Optimal Level: LDL Less than 100 MG/DL Near or Above Optimal: LDL 100-129 MG/DL Borderline High Risk: LDL 130-159 MG/DL High Risk: LDL 160-189 MG/DL Very High Risk: LDL Greater than 189 MG/DL 96 Anion gap measurement may be of limited value in the presence of any alkalosis, especially in a combined acid base disorder. . 97 Note change in reference range as of 01/23/08. The change was based on recommendations from the [place] [employer]. 98 Please note change in reference range effective 07 . 99 * SERUM LEVELS OF PSA MEASURED USING THE [employer] ACCESS HYBRITECH IMMUNOASSAY SHOULD NOT BE INTERPRETED ABSOLUTE EVIDENCE OF THE PRESENCE OR ABSENCE OF DISEASE. THE PSA VALUE SHOULD BE USED IN CONJUNCTION WITH OTHER PERTINENT CLINICAL DIAGNOSTIC PROCEDURES. 100 FASTING 101 * SERUM LEVELS OF PSA MEASURED USING THE [employer] ACCESS HYBRITECH IMMUNOASSAY SHOULD NOT BE INTERPRETED ABSOLUTE EVIDENCE OF THE PRESENCE OR ABSENCE OF DISEASE. THE PSA VALUE SHOULD BE USED IN CONJUNCTION WITH OTHER PERTINENT CLINICAL DIAGNOSTIC PROCEDURES. 102 Classification: Borderline High . 103 CALCULATED LDL APPROXIMATES THE VALUE OF A DIRECT LDL MEASUREMENT. Classification: Near or above optimal . 104 Anion gap measurement may be of limited value in the presence of any alkalosis, especially in a combined acid base disorder. . Procedures Date Code Description Status 02/22/2018 96583 EKG Tracing & Interpretation Completed 12/09/2017 69253 ECHO Transthorasic Realtime 2D W Doppler & Color Flow Completed Hosp 02/14/2017 68992 Treadmill Interp/Report Only Completed 02/14/2017 22088 Stress Test Supervsn W/Out I/R Completed 02/06/2017 12745 EKG Tracing & Interpretation Completed 02/06/2017 71497 EKG Tracing & Interpretation Completed 01/25/2017 16852 ECHO Transthorasic Realtime 2D W Doppler & Color Flow Completed Hosp 12/27/2016 02777 Closed TX Phalanx finger/thumb shaft w/o manipulation Completed 09/01/2016 85019 ECHO Transthorasic Realtime 2D W Doppler & Color Flow Completed Hosp 08/22/2016 90059 EKG Tracing & Interpretation Completed 02/29/2016 05611 ECHO Transthoracic, Real-Time 2D With Doppler And Completed Color Flow 02/02/2016 56388 EKG Tracing & Interpretation Completed 10/11/2014 82743 ECHO Transthorasic Realtime 2D W Doppler & Color Flow Completed Hosp 06/05/2014 55988 EKG Tracing & Interpretation Completed 05/04/2014 08526 Xray Knee 3 Views Completed 05/04/2014 47698 Rad Exam; Knee, Ap&L Completed 02/06/2014 73704 Intravascular Blood Flow Velocity Completed 02/06/2014 67977 Left Heart Cath. Incl S/I Coronaries, Angio S/I V Gram Completed If Done 01/27/2014 29907 ECHO Transthoracic, Real-Time 2D With Doppler And Completed Color Flow 01/22/2014 36176 ECHO Stress Test Incl Perf Contiuous ekg Monitoring Completed W/Phys Superv 01/22/2014 98187 ECHO Stress Test Incl Perf Contiuous ekg Monitoring Completed W/Phys Superv 11/14/2013 43051 EKG Tracing & Interpretation Completed 10/06/2013 11725 Xray Knee 3 Views Completed 07/24/2013 40205 EKG Tracing & Interpretation Completed 07/19/2013 90814 EKG, Interpretation Only Completed 07/18/2013 72624 Percutaneous Transcatheter Placement Of Intracoronary Completed Stent 07/18/2013 40360 EKG, Interpretation Only Completed 07/18/2013 15421 Left Health Catheterization W/Inj For Left Completed Ventriculography,S&I 07/18/2013 86928 Cath PLMT&NJX L Ventriculog Img S&I Completed 07/18/2013 87765 Left Heart Cath. Incl S/I Coronaries, Angio S/I V Gram Completed If Done 07/18/2013 09745 Cardiac Cath,LT Hrtmincl Intraprocedural Ink LT Completed Ventricul Mammary 07/07/2013 [id number] Mammogram Completed 07/04/2013 80940 ECHO Transthorasic Realtime 2D W Doppler & Color Flow Completed Hosp 07/04/2013 53274 EKG Tracing & Interpretation Completed 07/02/2013 09242 Treadmill Interp/Report Only Completed 07/02/2013 40844 Stress Test Supervsn W/Out I/R Completed 06/23/2013 17472 EKG Tracing & Interpretation Completed 05/30/2013 21576 Rad Exam; Knee Comp Completed 04/24/2013 82426 Xray Knee 3 Views Completed 04/16/2013 76104 Revision TKA W Or W/O Allograft;Femoral & Entire Completed Tibial Component 04/16/2013 02962 Revision TKA W Or W/O Allograft;Femoral & Entire Completed Tibial Component 02/26/2013 69001 EKG Tracing & Interpretation Completed 01/29/2013 55781 ECHO Transthoracic, Real-Time 2D With Doppler And Completed Color Flow 01/21/2013 99336 Inject/Drain Joint/Bursa Major W/O US Completed 11/07/2012 50872 Xray Knee 3 Views Completed 11/07/2012 87523 Rad Exam; Knee, Ap&L Completed 08/14/2012 31422 TKR Total Knee Replacement Completed 08/14/2012 70852 TKR Total Knee Replacement Completed 06/08/2012 28401 Treadmill Interp/Report Only Completed 06/08/2012 15925 Stress Test Supervsn W/Out I/R Completed 06/08/2012 43534 EKG, Interpretation Only Completed 05/15/2012 83628 Arthroscopy,Knee,Meniscectomy Media & Lateral Completed 05/15/2012 30667 Arthroscopy,Knee,Meniscectomy Media & Lateral Completed 05/02/2012 25062 EKG Tracing & Interpretation Completed 04/16/2012 75095 Inject/Drain Joint/Bursa Major W/O US Completed 12/13/2011 03242663 Colonoscopy Completed 11/30/2011 32697 Polysomnography Sleep Staging 4+ Parameters W/Cpap Completed 09/28/2011 97676 Treadmill Interp/Report Only Completed 09/28/2011 70176 Stress Test Supervsn W/Out I/R Completed 09/06/2011 97080 Holter Monitoring 24 HR New Completed 09/04/2011 91549 ECHO Stress Test Incl Perf Contiuous ekg Monitoring Completed W/Phys Superv 07/21/2011 97086 EKG Tracing & Interpretation Completed 07/04/2011 25414 ECHO Transthorasic Realtime 2D W Doppler & Color Flow Completed Hosp 07/04/2011 82331 Pulse Wave/Continuous-Interp.RPT Completed 07/04/2011 52042 Color Flow Doppler/Interp & Reprt Completed 01/04/2011 75044 EKG Tracing & Interpretation Completed 03/25/2010 79514 Admin Of Inj Completed 12/15/2009 [id number] Diabetic Retinal Eye Exam Completed 06/08/2009 [id number] Colonoscopy Completed 08/05/2003 [id number] Colonoscopy Completed 03/31/1999 [id number] Colonoscopy Completed Encounters Type Date Location Provider Dx Diagnosis Office Visit 05/09/2018 [facility] Javon Coleman, 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 3: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 Services Of Katerina Brumfield 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 Office Visit 05/01/2018 9:20a [facility] Ritesh Sauceda, G47.00 Insomnia , Medicine - PILOT 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 unspecified [address] F33.1 Major depressive disorder, recurrent, moderate E78.5 Hyperlipidemia, unspecified I10 Essential (primary) hypertension R73.03 Prediabetes F41.1 Generalized anxiety disorder Office Visit 04/03/2018 2:20p [facility] Internal Zsofia Sohail, R73.03 Prediabetes Medicine - 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 K21.9 Gastro-esophageal reflux disease without esophagitis E78.5 Hyperlipidemia, unspecified 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 I10 Essential (primary) hypertension 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 Office 03/28/2018 [facility] Gastroenterology Mulu K21.9 Gastro-esophageal Visit 11:00a HERBER Blackwell reflux disease without esophagitis R13.10 Dysphagia, unspecified Z72.821 Inadequate sleep hygiene 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 other Hospitalists nontraumatic intracranial hemorrhage H53.8 Other visual disturbances I10 Essential (primary) hypertension E78.5 Hyperlipidemia, unspecified Office Visit 12/09/2017 [facility] Jamie H53.8 Other visual 7:00a Clinic Brissa Haas disturbances I10 Essential (primary) hypertension Z86.73 Prsnl hx of TIA (TIA), and cereb infrc w/o resid deficits Z79.02 jail (current) use of antithrombotics/antiplatelets [facility]298 Other sequelae of 3:03p Assoc,artemio Sousa M.D. other Hospitalists nontraumatic intracranial hemorrhage H53.8 Other visual disturbances E11.9 Type 2 diabetes mellitus without complications F41.9 Anxiety disorder, unspecified F33.9 Major depressive disorder, recurrent, unspecified Office Visit 12/08/2017 [facility] H53.8 Other visual 3:03p artemio Zuniga, QUALITY PROCESS AUDITOR disturbances Hospitalists E78.5 Hyperlipidemia, unspecified E03.9 Hypothyroidism, unspecified F33.9 Major depressive disorder, recurrent, unspecified F41.9 Anxiety disorder, unspecified Office Visit 12/08/2017 [facility] Jamie H53.8 Other visual 7:00a David Haas M.D. disturbances I10 Essential (primary) hypertension Z86.73 Prsnl hx of TIA (TIA), and cereb infrc w/o resid deficits Z79.02 jail (current) use of antithrombotics/antiplatelets Office Visit 11/20/2017 2:40p [facility] Internal Chriss Quinteros R19.7 Diarrhea, Angelo Romero M.D.,FACP unspecified [place] E03.9 Hypothyroidism, unspecified Office Visit 10/19/2017 2:20p [facility] Internal Chriss Quinteros I10 Essential ( primary) Angelo Romero M.D.,FACP hypertension [address] F33.1 Major depressive disorder, recurrent, moderate E03.9 Hypothyroidism, unspecified Office Visit 09/19/2017 2:40p [facility] Oscar Quinteros I10 Essential ( primary) Angelo Romero M.D.,FACP hypertension [address] F41.9 Anxiety disorder, unspecified Office Visit 03/21/2017 1:30p [facility] Aleksandr G. I10 Essential ( primary) Medicine Of Katerina Smion M.D. 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 Office Visit 02/13/2017 2:33p [facility] Luis R07.9 Chest pain, Assoc,DEBORAH Ayala unspecified Hospitalists G47.33 Obstructive sleep apnea (adult) (pediatric) 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 I10 Essential (primary) hypertension Office Visit 02/12/2017 2:30p [facility] Javon Coleman, Z86.73 Prsnl hx of Services Of Katerina Brumfield TIA (TIA), and cereb infrc w/o resid deficits I10 Essential (primary) hypertension E78.5 Hyperlipidemia, unspecified Z79.02 terminal manager (current) use of antithrombotics/antiplatelets Office Visit 02/07/2017 2:00p [facility] Oscar Quinteros I15.0 Renovascular Angelo Romero M.D.,FACP hypertension [address] Z23 Encounter for immunization Office Visit 02/06/2017 1:30p [facility] DEBORAH Damon G45.8 Oth transient Of [facility] cerebral ischemic attacks and related synd I25.10 Athscl heart disease of [place] coronary artery w/o ang pctrs I10 Essential (primary) hypertension E78.5 Hyperlipidemia, unspecified Office Visit 01/31/2017 1:40p [facility] Internal Chriss Quinteros G45.8 Oth transient Medicine Barbara Romero M.D.,FACP cerebral Rd ischemic attacks and related synd I10 Essential (primary) hypertension E78.5 Hyperlipidemia, unspecified Office 01/26/2017 [facility] Javon G45.9 Transient Visit 2:08p Clinic Jared, M.D. cerebral ischemic attack, unspecified I10 Essential (primary) hypertension Z79.02 jail (current) use of antithrombotics/antiplatelets Office Visit 01/26/2017 12:56p [facility] Enoc Figueroa, G45.8 Oth transient Assoc,artemio Brumfield cerebral Hospitalists ischemic attacks and related synd E78.5 Hyperlipidemia, unspecified I25.10 Athscl heart disease of [place] coronary artery w/o ang pctrs I10 Essential (primary) hypertension Office 01/25/2017 [facility] Javon G45.9 Transient Visit 2:03p David Coleman M.D. cerebral ischemic attack, unspecified I10 Essential (primary) hypertension Z79.02 terminal manager (current) use of antithrombotics/antiplatelets Office Visit 01/25/2017 [facility] Roby I63.9 Cerebral 12:55p Assoc,artemio Shaver NJanet infarction, Hospitalists unspecified E78.5 Hyperlipidemia, unspecified I25.10 Athscl heart disease of [place] coronary artery w/o ang pctrs I10 Essential (primary) hypertension Office Visit 01/03/2017 10:30a [facility] Internal Chriss Quinteros I25.10 [facility] - Clement Romero M.D.,FACP disease of Rd [place] coronary artery w/o ang pctrs S62.627D Disp fx of med phalanx of l lit fngr, 7thD E03.9 Hypothyroidism, unspecified I10 Essential (primary) hypertension 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 F33.1 Major depressive disorder, recurrent, moderate Office Visit 09/01/2016 11:17a [facility] Kecia Snowden, R42 Dizziness and Assoc,pc [facility] Hospitalists Z86.73 Prsnl hx of TIA (TIA), and cereb infrc w/o resid deficits I25.10 Athscl heart disease of [place] coronary artery w/o ang pctrs G47.33 Obstructive sleep apnea (adult) (pediatric) Office Visit 08/31/2016 [facility] Percy R42 Dizziness and 11:16a Assoc,pc [facility] Hospital[facility] Z86.73 Prsnl hx of TIA (TIA), and cereb infrc w/o resid deficits I25.10 Athscl heart disease of [place] coronary artery w/o ang pctrs G47.33 Obstructive sleep apnea (adult) (pediatric) Office Visit 08/22/2016 [facility] Quariadneybsugey S. I35.0 Nonrheumatic 3:00p Cardiology Brissa Hahn aortic (valve) stenosis I10 Essential (primary) hypertension I25.10 Athscl heart disease of [place] coronary artery w/o ang pctrs I34.0 Nonrheumatic mitral (valve) insufficiency Office Visit 02/02/2016 2:00p [facility] Qutaray S. I10 Essential Brissa Hahn (primary) hypertension I25.10 Athscl heart disease of [place] coronary artery w/o ang pctrs I34.0 Nonrheumatic mitral (valve) insufficiency I35.0 Nonrheumatic aortic (valve) stenosis Office Visit 08/16/2015 8:45a Orthopedic Temi Rivera, Z96.652 Presence of left Services Of Brissa artificial knee C.M.A. joint Office Visit 06/01/2015 10:45a [facility] Quirino Rodriguez I63.511 Cereb infrc d/t [...] Ischemia Cerebral Transient Unspec 414.01 Coronary Atherosclerosis [place] Office Visit 10/11/2014 7:08p [facility] Thom Turk 434.91 Occlusion Assoc,artemio Gandara M.D. Cerebral Artery Hospitalists Unspec W/ Cerebral Infarc 401.9 Hypertension Unspec 244.9 Hypothyroidism Other Unspec Office Visit 10/10/2014 [facility] Quirino Rodriguez 434.91 Occlusion 2:34p David Giles M.D. Cerebral Artery Unspec W/ Cerebral Infarc 435.9 TIA Ischemia Cerebral Transient Unspec Office Visit 10/10/2014 7:07p [facility] Loc 434.91 Occlusion Assoc,artemio Cordova M.D. Cerebral Artery Hospitalists Unspec W/ Cerebral Infarc 401.9 Hypertension Unspec 244.9 Hypothyroidism Other Unspec 272.4 Hyperlipidemia Other Unspec Office Visit 10/09/2014 7:06p [facility] Enoc Figueroa, 434.91 Occlusion Assocartemio M.D. Cerebral Artery Hospitalists Unspec W/ Cerebral Infarc 401.9 Hypertension Unspec 244.9 Hypothyroidism Other Unspec 272.4 Hyperlipidemia Other Unspec Office Visit 06/05/2014 Sam Babin S. 414.01 Coronary 3:20p Santa Hahn M.D. Atherosclerosis [place] V45.82 Percutaneous Transluminal Coronary Angioplas Postsurg Status 401.1 Hypertension Benign 424.0 Mitral Valve Disorder Office Visit 05/04/2014 11:30a Orthopedic Temi 715.96 Osteoarthrosis Services Of Brissa Rivera Unspec Genlzd Or C.M.A. Localized Lower Leg 719.46 Pain Joint Lower Leg Office Visit 02/10/2014 Sam Babin S. 414.01 Coronary 5:00p Santa Hahn M.D. Atherosclerosis [place] V45.82 Percutaneous Transluminal Coronary Angioplas Postsurg Status [...] 414.01 Coronary 1:20p Santa Hahn M.D. Atherosclerosis [place] 424.0 Mitral Valve Disorder 424.1 Aortic Valve Disorder V45.82 Percutaneous Transluminal Coronary Angioplas Postsurg Status Office Visit 01/22/2014 [facility] Qumarshaeh S. 414.01 Coronary 11:30a Santa Hahn M.D. Atherosclerosis [place] 424.0 Mitral Valve Disorder 424.1 Aortic Valve Disorder V45.82 Percutaneous Transluminal Coronary Angioplas Postsurg Status Office Visit 11/14/2013 [facility] Quariadneybeh S. 414.01 Coronary 8:20a Santa Hahn M.D. 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 M.D. Lower Leg 715.96 Osteoarthrosis Unspec Genlzd Or Localized Lower Leg Office Visit 07/24/2013 [facility] Qutarun S. 414.01 Coronary 3:40p Santa Hahn M.D. Atherosclerosis [place] 424.0 Mitral Valve Disorder 397.0 Tricuspid Valve Disease 424.1 Aortic Valve Disorder 785.2 Murmur Cardiac Undiagnosed Office Visit 07/18/2013 11:30a [facility] Olaf S. 786.50 Pain Chest Brissa Hahn Unspec 786.05 Shortness Of Breath 794.39 Cardiovascular Study Other Abnormal Office Visit 07/04/2013 Sam Babin S. 414.01 Coronary 4:00p Santa Hahn M.D. Atherosclerosis [place] 786.50 Pain Chest Unspec 424.0 Mitral Valve Disorder 397.0 Tricuspid Valve Disease 424.1 Aortic Valve Disorder Office Visit 07/02/2013 9:30a [facility] Olaf S. 786.50 Pain Chest Brissa Hahn Unspec 414.9 Ischemic Heart Disease Chronic Unspec Office Visit 06/23/2013 Sam Babin S. 414.01 Coronary 1:40p Santa Hahn M.D. Atherosclerosis [place] 786.50 Pain Chest Unspec 424.0 Mitral Valve Disorder 397.0 Tricuspid Valve Disease 424.1 Aortic Valve Disorder 785.2 Murmur Cardiac Undiagnosed 782.3 Edema Office Visit 02/26/2013 Sam Babin S. 414.01 Coronary 3:00p Santa Hahn M.D. Atherosclerosis [place] 412 Myocardial Infarction Old 424.1 Aortic Valve [...] 996.78 Complication Due To 9:30a Services Of C.M.ADana Brumfield Internal Orthopedic Device Implant Other Office Visit 08/17/2012 [facility] Patricia Whelan, 276.8 Hypopotassemia 1:23p Assoc,pc N.PDana Hospitalists 780.97 Altered Mental Status Office Visit 06/08/2012 11:51a [facility] Enoc Figueroa, 786.51 Pain Precordial Assoc,artemio Brumfield Hospitalists 401.9 Hypertension Unspec 272.2 Hyperlipidemia Mixed 285.9 Anemia Unspec Office Visit 06/07/2012 [facility] Olaf SDana 414.01 Coronary 2:00p Cardiology Brissa Hahn Atherosclerosis [place] 401.1 Hypertension Benign 434.11 Cerebral Embolism W/ Cerebral Infarc Office Visit 06/07/2012 11:50a [facility] Cassidy 786.51 Pain Precordial Assoc,pc Micah Moeller Hospitalists 401.9 Hypertension Unspec 272.2 Hyperlipidemia Mixed 285.9 Anemia Unspec Office Visit 05/02/2012 8:30a Regional Vice President Surgical Sales Internal Shauna Saira, 836.0 Dislocation Knee Medicine - N.P. Tear Of Medial [place] Cartilage Or Meniscus Curr 786.03 Apnea 414.01 Coronary Atherosclerosis [place] 401.1 Hypertension Benign 434.11 Cerebral Embolism W/ Cerebral Infarc 272.2 Hyperlipidemia Mixed V72.84 Examination Preoperative Unspec 244.9 Hypothyroidism Other Unspec Office Visit 04/29/2012 8:30a Orthopedic Neymar Marrero, 836.0 Dislocation Knee Services Of Brissa Tear Of Medial C.M.A. Cartilage Or Meniscus Currkely Office Visit 04/16/2012 2:30p Orthopedic Neymar Marrero, 715.36 Osteoarthrosis Services Of Brissa Localzd Not Spec C.M.A. Prime Or 2Ndy Lower Leg 727.49 Cyst Synovial Other 719.06 Effusion Joint Lower Leg Office Visit 03/27/2012 3:40p [facility] Internal Yash Guerrero 729.5 Pain In Limb Angelo Nevarez M.D. [place] Office Visit 03/22/2012 10:20a Regional Vice President Surgical Sales Internal Yash Guerrero 719.46 Pain Joint Angelo Nevarez M.D. Lower Leg [place] 729.5 Pain In Limb Office Visit 10/19/2011 [facility] Internal Yash Guerrero 787.91 Diarrhea 10:20a Angelo Nevarez M.D. [place] Office Visit 10/06/2011 [facility] Qutaybeh S. 414.01 Coronary 10:40a Cardiology Mita Hahn M.D. [place] 401.1 Hypertension Benign 272.4 Hyperlipidemia Other Unspec 424.0 Mitral Valve Disorder 424.1 Aortic Valve Disorder Office Visit 09/20/2011 2:20p [facility] Oscar Nevarez, 787.91 Diarrhea Angelo Pathak M.D. 434.11 Cerebral Embolism W/ Cerebral Infarc Office Visit 09/04/2011 [facility] Quariadneybsugey S. 401.1 Hypertension 2:30p Santa Hahn M.D. Benign 414.01 Coronary Atherosclerosis [place] 794.31 Electrocardiogram (ECG) (EKG) Abnormal Office Visit 07/21/2011 [facility] Qutaybeh S. 401.1 Hypertension 10:00a Santa Hahn M.D. Benign 272.2 Hyperlipidemia Mixed 414.01 Coronary Atherosclerosis [place] 794.31 Electrocardiogram (ECG) (EKG) Abnormal 424.0 Mitral Valve Disorder 424.1 Aortic Valve Disorder 434.11 Cerebral Embolism W/ Cerebral Infarc Office Visit 07/13/2011 10:00a Katerina Guerrero 434.11 Cerebral Angelo Nevarez M.D. Embolism W/ [place] Cerebral Infarc 401.1 Hypertension Benign 272.2 Hyperlipidemia Mixed 414.01 Coronary Atherosclerosis [place] Office Visit 01/04/2011 10:00a DO Not Use Katerina Guerrero V70.0 Examination AT Mynor Nevarez M.D. General Medical Routine AT [facility] 401.1 Hypertension Benign 414.01 Coronary Atherosclerosis [place] 272.0 Hypercholesterolemia Pure 790.21 Impaired Fasting Glucose 244.9 Hypothyroidism Other Unspec 724.1 Pain Thoracic Spine 530.81 Esophageal Reflux Office Visit 07/06/2010 10:20a DO Not Use Regional Vice President Surgical Sales Yash E. 401.1 Hypertension Benign AT Mynor Nevarez M.D. 414.01 Coronary Atherosclerosis [place] 272.0 Hypercholesterolemia Pure 790.21 Impaired Fasting Glucose Office Visit 02/16/2010 3:00p DO Not Use Regional Vice President Surgical Sales Yash E. 401.1 Hypertension Benign AT Mynor Nevarez M.D. 272.2 Hyperlipidemia Mixed 414.01 Coronary Atherosclerosis [place] 244.9 Hypothyroidism Other Unspec Office Visit 02/10/2010 11:00a DO Not Use Regional Vice President Surgical Sales Yash E. V72.81 Examination AT Mynor Nevarez M.D. Preoperative Cardiovascular 401.1 Hypertension Benign 272.2 Hyperlipidemia Mixed 414.01 Coronary Atherosclerosis [place] 244.9 Hypothyroidism Other Unspec Office Visit 05/04/2009 2:00p DO Not Use Regional Vice President Surgical Sales Yash E. 401.1 Hypertension Benign AT Mynor Nevarez M.D. 272.2 Hyperlipidemia Mixed 414.01 Coronary Atherosclerosis [place] 244.9 Hypothyroidism Other Unspec 311 Depressive Disorder Not Elsewhere Spec 787.20 Dysphagia, Unspecified Office Visit 03/30/2008 [facility] Yash E. 465.9 URI Upper Respiratory 1:45p Assoc AT Brissa Nevarez Infections Acute Unspec [facility] [place] Office Visit 10/10/2007 [facility] Yash E. 272.0 Hypercholesterolemia Pure 10:00a Assoc AT Brissa Nevarez [facility] 414.01 Coronary Atherosclerosis [place] 401.1 Hypertension Benign Office Visit 04/10/2007 10:45a [facility] Yash E. 272.2 Hyperlipidemia Mixed Assoc AT Brissa Nevarez [facility] 244.9 Hypothyroidism Other Unspec 796.2 Blood Pressure Reading Elevated W/O Hypertension 414.01 Coronary Atherosclerosis [place] Office Visit 03/25/2007 [facility] Yash E. 272.0 Hypercholesterolemia Pure 2:45p Assoc AT Brissa Nevarez [facility] 414.01 Coronary Atherosclerosis [place] V04.81 Need For Prophylactic Vaccination & Inoculation/Influenza Plan of Treatment Future Appointment(s):10/10/2018 10:15 am - Javon Coleman M.D. 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
[2018-07-01 12:25] LABS: Activated Partial Thrombo Time 28.8 seconds (26.0-36.3); INR 0.99 (0.77-1.02)
[2018-07-01 12:38] LABS: Albumin 3.6 g/dL (3.2-5.2); Albumin/Globulin Ratio 1.3 (1-3); BUN/Creatinine Ratio 19.7 (8-20); Calcium 8.7 mg/dL (8.6-10.3); EGFR African American 118.8 (>60); EGFR Non-African American 98.2 (>60); Globulin 2.7 g/dL (2-4); HDL Cholesterol 45.1 mg/dL; Potassium 3.5 mmol/L (3.5-5.0); Total Bilirubin 0.4 mg/dL (0.2-1.0); Total Protein 6.3 g/dL (6.4-8.9)
[2018-07-01] MEDS ORDERED: Iohexol 350* (CONTRAST) 500 ML MDV IV ONE (12:53)
[2018-07-01 13:04] LABS: ABS Basophils 0 10^3/ul (0-0.2); ABS Eosinophils 0.2 10^3/ul (0-0.6); ABS Lymphocytes 1.3 10^3/ul (1.0-4.8); ABS Monocytes 0.6 10^3/ul (0-0.8); ABS Neutrophils 3.7 10^3/ul (1.5-7.7); ABS Nucleated RBC 0 10^3/ul; Eosinophil % 2.9 %; Hematocrit 37 % (42-52); Hemoglobin 12.4 g/dl (14.0-18.0); Lymphocyte % 22.3 %; Mean Corpuscular HGB Conc 34 g/dl (31-36); Mean Corpuscular Hemoglobin 30 pg (27-31); Mean Corpuscular Volume 90 fL (80-94); Mean Platelet Volume 8.4 fL (7.4-10.4); Nucleated Red Blood Cells % 0; Platelet Count 152 10^3/ul (150-450); Red Blood Count 4.09 10^6/ul (4.00-5.40); Red Cell Distribution Width 13 % (10.5-15); White Blood Count 5.7 10^3/ul (3.5-10.8)
[2018-07-01] MEDS ORDERED: Acetaminophen TAB* 325 MG PO PRN (14:35)
[2018-07-01] MEDS ORDERED: NS 0.9% 1000 ML** 1,000 ML IV SCH (15:30)
--- NOTE | 2018-07-01 18:47 | CONS ---
CONSULTATION REPORT: DATE OF CONSULT: 07/01/18 PATIENT OF: Barbara Trujillo NP. HISTORY OF PRESENT ILLNESS: Mr. Black is an 83-year-old right-handed man who has had prior right hemispheric stroke with his principal deficit being decreased spatial sense. He cannot do woodwork like he used to. He does not have the spatial sense to do it. He was in his usual state of health until this morning when he had onset of left hand numbness and an inability to put 2 cards that he was writing names on together. It sounds like he was fumbling and had decreased spatial sense. He called it disorientation, but he was able to think and write the names he wanted, but he was unable to somehow coordinate this activity. His symptoms have resolved. He had no unresponsiveness, no staring with this episode. He is now back to normal. He had a recent episode of disorientation that lasted about 30 minutes. He has had an EEG that was normal as an outpatient following that, and he had an MRI scan following this admission. I reviewed it and showed significant white matter disease including some confluence, an old right MCA stroke, and some chronic lesions that appear to be micro hemorrhages and his EEG as mentioned was normal. When he got up, he felt a little bit unsteady, but he had no specific weakness, no visual symptoms, no headache. PAST MEDICAL HISTORY: He has had a history of GE reflux. PAST SURGICAL HISTORY: He has had knee replacement surgery on the left twice, right rotator cuff surgery, cataract surgery, and thyroidectomy. MEDICATIONS: Medicines at home include: 1. Atenolol 50 mg daily. 2. Ativan 0.5 t.i.d. 3. Synthroid 12.5 daily. 4. Lisinopril 10 mg daily. 5. Omeprazole 20 mg daily. 6. Amlodipine 10 mg daily. 7. He had been on Plavix and aspirin, the aspirin has been discontinued, but the Plavix is not on his list of medications. 8. He has nasal CPAP for history of sleep apnea. ALLERGIES: Include MORPHINE and CEPHALEXIN. REVIEW OF SYSTEMS: Negative in all 14 spheres other than the HPI. PHYSICAL EXAM: Blood pressure is 76/60, although it was higher when I was in earlier, it had been 131/77. Pulse 61, respirations 17, temperature 98.4. He was alert and oriented, with normal speech and comprehension. Cranial nerves II through XII were intact. Visual hayes were intact. Motor exam revealed normal tone and strength, normal [id number]. There was slight unsteadiness or incoordination and left past pointing. No pronator drift. Sensation intact to light touch. Reflexes 2 and equal, downgoing toes. Chest: Clear. Cardiovascular: Regular rate and rhythm. Abdomen: Soft, with positive bowel sounds. DIAGNOSTIC STUDIES/LAB DATA: His CT scan was abnormal for chronic severe small vessel ischemic disease. No right parietal infarct. His CTA showed no significant occlusion, AVM, or vascular malformation. IMPRESSION AND PLAN: His symptoms are a little bit more prominent than they were last month. His blood pressure is a little bit low. He will need to be hydrated and his blood pressure medicines will need to be observed and be adjusted to make sure he does not hypoperfuse and have stroke-like symptoms. This does not sound like seizures, but seems like recurrent transient ischemic attack symptoms in a man who has had stroke and vascular disease. Thank you for sharing his case. [id number]/[facility] #: [id number] CARRIE
--- NOTE | 2018-07-01 19:03 | HP ---
ADDENDUM NOW INCLUDED ON THIS REPORT CC: Dr. Chriss Romero; LAURA Crow; Dr. Coleman in Neurology. * HISTORY AND PHYSICAL: DATE OF ADMISSION: 07/01/18 PRIMARY CARE PROVIDER: Dr. Chriss Romero and LAURA Crow. OTHER PROVIDERS: Dr. Milner, Neurology in consultation. ATTENDING PHYSICIAN: Dr. Bunny Villela * (dictated by Bright De La Torre, ROOMS DIRECTOR) CHIEF COMPLAINT: 1. Mild disorientation. 2. Left hand numbness. 3. Unsteady gait. HISTORY OF PRESENT ILLNESS: Mr. Black is an 83-year-old male with a past medical history significant for right MCA in 2014, [place], thyroid disease, anemia, CAD, hyperlipidemia, hypertension, sleep apnea; who presented to the emergency department today with complaints of mild disorientation and left hand numbness. 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 He describes the sensation as if that he had a pinched nerve. The sensation did not radiate, but did encompass the whole hand. The patient reports he stood up and started to walk up and down the hallway without difficulty, but there is some mention by his that he did complain of feeling wobbly. Due to the patient's history of CVA, him and his became concerned, therefore EMS was called. En route, patient had no facial droop, no arm weakness, and no speech difficulty. On presentation to the ER, his NIH scale was 0. When I evaluated this patient, he reports that his symptoms have resolved. He is noted to be bradycardic on the telemonitor and also on the EKG. Due to the patient's history and bradycardia, he will be admitted overnight for observation on telemetry. PAST MEDICAL HISTORY: 1. Right MCA 2014. 2. OK. 3. Thyroid disease. 4. Anemia. 6. Angina. 7. CAD. 8. Hyperlipidemia. 9. Hypertension. 10. Sleep apnea with CPAP. 11. GERD. 10. Ulcer. PAST SURGICAL HISTORY: 1. Right endarterectomy. 2. Cardiac stents. 3. Right shoulder surgery. 4. Partial thyroidectomy. 5. Left total knee replacement. 6. Right bunion removal. 7. Right knee arthroscopy HOME MEDICATIONS: 1. Amlodipine 10 mg p.o. daily. 2. Flomax 0.4 mg p.o. at bedtime. 3. Ativan 0.5 mg t.i.d. 4. Proscar 5 mg p.o. daily 5. Plavix 75 mg p.o. q.a.m. 6. Lipitor 80 mg p.o. daily. 7. Atenolol 50 mg p.o. daily. 8. Omeprazole 20 mg p.o. daily. 9. Lisinopril 10 mg p.o. daily. 10. Levothyroxine 125 mcg daily. 11. Trazodone 50 mg p.o. daily. ALLERGIES: The patient is allergic to CEPHALEXIN and MORPHINE. FAMILY HISTORY: The patient reports father of natural causes. Mother is due to pneumonia. No other significant family history. SOCIAL HISTORY: The patient denies smoking, but he is a former smoker. The patient denies EtOH use. The patient denies drug use. The patient is retired. The patient is and lives with his . The patient is independent in his ADLs. The patient's , Laurita Black will be the patient's surrogate decision- maker in the event that he is unable to make his own decision. REVIEW OF SYSTEMS: Constitutional: No fevers, no anorexia, no chills. Cardiac : No chest pain, no edema, no palpitations. Respiratory: No cough, no hematemesis, no shortness of breath. GI: No nausea or vomiting, no diarrhea, no abdominal pain. : No gross hematuria, no dysuria. Neuro: No focal weakness or sensory loss at this time. Please HPI. Eye: No visual complaints. ENT: No dysphagia. Musculoskeletal: No arthralgias or myalgias. Skin: No rashes or lesions. Psych: No psychosis or anxiety. The patient is positive for history of depression. PHYSICAL EXAMINATION GENERAL: Mr. Black is a well-developed, well nourished elderly woman sitting in bed in no acute distress. Appears stated age. VITAL SIGNS: Temp 98.4, HR 57, RR 16, O2 saturation 98% on room air, BP 131/77. HEENT: Visual hayes are grossly intact. Pupils are equal and reactive to light. EOMs intact. Sclerae is without icterus. External ears and nose within normal limits. Oral mucosa is moist. Tonsils are without erythema or exudate. Pharynx is clear. NECK: Full range of motion. No lymphadenopathy. RESPIRATORY: Symmetrical chest expansion. No accessory muscle use. Lungs are clear to auscultation. No rhonchi or rubs or wheezes. CARDIOVASCULAR: Regular rate and rhythm. S1 and S2 present. No murmurs, rubs or gallops. ABDOMEN: Soft, nontender to palpation. Bowel sounds normal throughout. EXTREMITIES: Skin is warm and smooth bilaterally. The patient has +1 edema on the right and +2 edema on the left, which he reports as baseline since his CVA. No clubbing or cyanosis. Pedal pulses are 2+ bilaterally. MUSCULOSKELETAL: Full range of motion. No pain or deformities. NEURO: Awake, alert and oriented x4. Cranial nerves II through XII intact. Moves all extremities. Motor strength is 4/5 in left upper extremity, which is at baseline. Remainder of the extremities are 5/5. The patient does have a slight left facial droop, which he reports as baseline since previous CVA. SKIN: Grossly intact. LABORATORY DATA/DIAGNOSTIC STUDIES: WBC 5.7, hemoglobin 12.4, hematocrit 37, MCV 90, MCH 30. Sodium 140, potassium 3.5, chloride 105, carbon dioxide 31, BUN 15, creatinine 0.76, glucose 126, lactic 1.2. Brain CT: Impression: No evidence for gross acute infarct, mass effect or hemorrhage. Findings suggestive of moderate to severe chronic small vessel ischemic changes. Old right parietal lobe infarct. Chest x-ray: Impression: No active cardiopulmonary disease. Head CTA: Impression: Atheromatous disease. 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 No internal carotid artery stenosis. No aneurysm, vascular malformation or occlusion or stenosis. Chronic small vessel ischemic change. Again, noted is an asymmetry of mucosa of the oropharynx with effacement of the left vallecula. Recommended correlation with direct visualization to exclude pharyngeal mucosal neoplasm. ASSESSMENT AND PLAN: Mr. Black is an 83-year-old male with a past medical history of cerebrovascular accident, myocardial infarction, thyroid disease, anemia, angina, coronary artery disease, hyperlipidemia, hypertension, sleep apnea; who presented to the emergency department today with complaints of mild disorientation and left hand numbness. Due to the patient's history of cerebrovascular accident, he will be monitored overnight for the followin. Mild disorientation: As mentioned above, the patient was attempting to write down references but "could not keep track of what I was doing." In addition, he had left hand numbness. All of these symptoms have now resolved and patient is at baseline neuro status. Dr. Milner was kind enough to see the patient in the emergency room on consultation. The patient has had a recent CTA today, recent MRI June 2018, and the recent EEG. Therefore, no further diagnostic is needed at this time. If the patient starts to develop symptoms again, then we will readdress this. The patient needs to continue his Plavix, but he has been stopped on his aspirin per his last visit here and evaluation by Dr. Giles. We should follow up with Dr. Hahn to make sure the patient does not need to be on aspirin due to cardiac illness. 2. Bradycardia: As previously mentioned patient was noted to be bradycardic on the monitor. The patient is noted be on atenolol 50 mg p.o. daily. The patient denies dizziness with position change. If the patient continues to bradycardic while in the hospital he might benefit from a decrease in his atenolol dose. 3. Myocardial infarction/coronary artery disease: As previously mentioned we need to touch base with Dr. Hahn regarding full discontinue of aspirin due to patient's history of myocardial infarction with cardiac stents. The patient will be on telemetry. The patient will have routine vitals. The patient will be continued on his amlodipine, lisinopril, and atenolol. The patient also be continued on atorvastatin. 5. Thyroid disease: We will continue on his levothyroxine 125 mcg daily. The patient had a TSH checked on 06/29/18 of 1.03. 6. Anemia: The patient is slightly anemic at 12.4 and 37. It might be worth getting a stool guaiac while he is in the hospital. In addition, iron panel. 7. Hyperlipidemia: As previously mentioned, the patient will continue on atorvastatin 80 mg daily. 8. Hypertension: As previously mentioned the patient will be continued on amlodipine, lisinopril, and atenolol. 9. Sleep apnea: The patient will be allowed to use his home CPAP while in the hospital. 10. Gastroesophageal reflux disease: The patient will be continued on omeprazole 20 mg p.o. daily. 11. Ulcer: The patient does not currently have symptoms of an ulcer, but we will continue his omeprazole 20 mg daily. 12. FEN: I have ordered a nursing swallow eval and if he passes this, I believe he can advance to heart healthy diet. 13. Code status: The patient is a full code. 14. DVT prophylaxis: Based of the DVT risk assessment, he is at high risk, therefore I have ordered heparin subcu q.8 hours. TIME SPENT: Approximately 60 minutes was spent on this admission, greater than half time was spent [id number] with the patient and his obtaining history performing my physical and discussing my plan of care. The plan has been reviewed with Dr. Villela, who agrees with my plan. BRIGHT DE LA TORRE NP ADDENDUM: In reviewing the patient's CTA of the head and neck, it should be noted that there is a mention of an asymmetry of the mucosa of the oropharynx with effacement of the left vallecula, which there is a following recommendation to correlate with direct visualization to exclude pharyngeal mucosa neoplasm. This increased intensity was also noted on the CTA of the head and neck completed on 12/08/17 and was described as there is an increased soft tissue density present at the base of the tongue on the left side and in the left tonsillar fossa, or possibly representing mucosal redundancy, although a mass cannot be excluded. Therefore, the patient should follow up with an ENT specialist for further evaluation if deemed necessary. BRIGHT DE LA TORRE NP [id number]/[facility] #: [id number] [id number]/[facility] #: [id number] CARRIE
--- NOTE | 2018-07-01 20:27 | HP ---
HISTORY AND PHYSICAL: ADDENDUM: In reviewing the patient's CTA of the head and neck, it should be noted that there is a mention of an asymmetry of the mucosa of the oropharynx with effacement of the left vallecula, which there is a following recommendation to correlate with direct visualization to exclude pharyngeal mucosa neoplasm. This increased intensity was also noted on the CTA of the head and neck completed on 12/08/17 and was described as there is an increased soft tissue density present at the base of the tongue on the left side and in the left tonsillar fossa, or possibly representing mucosal redundancy, although a mass cannot be excluded. Therefore, the patient should follow up with an ENT specialist for further evaluation if deemed necessary. BRIGHT DE LA TORRE, HERBER [id number]/[facility] #: [id number] CARRIE
[2018-07-01] MEDS: LORazepam TAB(*) 0.5 MG PO SCH (20:59)
[2018-07-01] MEDS: Heparin VIAL(*) 5000 UNITS/ML VIAL (FIVE THOUSAND) SUBCUT SCH (21:00)
[2018-07-01] MEDS ORDERED: Tamsulosin CAP* 0.4 MG PO SCH (21:00)
[2018-07-01] MEDS ORDERED: traZODone TAB* 50 MG TAB PO SCH (21:00)
[2018-07-02 01:45] LABS: Urine Appearance Clear; Urine Bilirubin Negative (Negative); Urine Blood Negative (Negative); Urine Color Straw; Urine Glucose Negative (Negative); Urine Ketones Negative (Negative); Urine Nitrite Negative (Negative); Urine Protein Negative (Negative); Urine Specific Gravity 1.012 (1.010-1.030); Urine Urobilinogen Negative (Negative)
[2018-07-02] MEDS: Heparin VIAL(*) 5000 UNITS/ML VIAL (FIVE THOUSAND) SUBCUT SCH (05:49)
[2018-07-02] MEDS ORDERED: Levothyroxine TAB* 125 MCG TAB PO SCH (06:00)
[2018-07-02 06:40] LABS: ABS Basophils 0 10^3/ul (0-0.2); ABS Eosinophils 0.2 10^3/ul (0-0.6); ABS Lymphocytes 1.4 10^3/ul (1.0-4.8); ABS Monocytes 0.6 10^3/ul (0-0.8); ABS Neutrophils 3.5 10^3/ul (1.5-7.7); ABS Nucleated RBC 0 10^3/ul; Eosinophil % 3.1 %; Hematocrit 41 % (42-52); Hemoglobin 13.7 g/dl (14.0-18.0); Lymphocyte % 25.2 %; Mean Corpuscular HGB Conc 34 g/dl (31-36); Mean Corpuscular Hemoglobin 30 pg (27-31); Mean Corpuscular Volume 90 fL (80-94); Mean Platelet Volume 8.4 fL (7.4-10.4); Nucleated Red Blood Cells % 0.1; Platelet Count 152 10^3/ul (150-450); Red Blood Count 4.55 10^6/ul (4.00-5.40); Red Cell Distribution Width 13 % (10.5-15); White Blood Count 5.6 10^3/ul (3.5-10.8)
[2018-07-02 07:00] LABS: BUN/Creatinine Ratio 14.1 (8-20); Calcium 9.2 mg/dL (8.6-10.3); EGFR African American 104.4 (>60); EGFR Non-African American 86.3 (>60); Potassium 3.2 mmol/L (3.5-5.0)
[2018-07-02] MEDS: LORazepam TAB(*) 0.5 MG PO SCH (08:01)
[2018-07-02] MEDS ORDERED: Atenolol TAB* 50 MG PO SCH (09:00)
[2018-07-02] MEDS ORDERED: Clopidogrel TAB* 75 MG PO SCH (09:00)
[2018-07-02] MEDS ORDERED: amLODIPine TAB* 5 MG PO SCH (09:00)
[2018-07-02] MEDS ORDERED: Atorvastatin* 80 MG TAB PO SCH (09:00)
[2018-07-02] MEDS ORDERED: Pantoprazole TAB * 40 MG TAB PO SCH (09:00)
[2018-07-02] MEDS ORDERED: Lisinopril TAB* 10 MG PO SCH (09:00)
[2018-07-02] MEDS ORDERED: Finasteride TAB* 5 MG PO SCH (09:00)
[2018-07-02 11:51] VITALS: BP 121/48
--- NOTE | 2018-07-02 20:33 | DS ---
CC: Dr. Romero * DISCHARGE SUMMARY: DATE OF ADMISSION: DATE OF DISCHARGE: 07/02/18 HOSPITAL COURSE: This 83-year-old man came to the emergency room complaining of left hand weakness and numbness about an hour after he took his morning medication and having had breakfast. He was at a counter, filling out a form, his left hand became numb and weak. At first, he thought it might have been because he was leaning on the counter. His called 911. His left hand returned to normal in approximately half an hour and was normal before he got to the emergency room. He had a stroke in 2014 with the same symptoms of left hand weakness and numbness. He has recovered from that stroke quite well. He noted that when he got up from the counter, his left arm was weak, he seemed a little wobbly and off. He also states that 6 months ago, Dr. Romero increased his blood pressure medications because his blood pressure was too high. The patient was given intravenous fluids. He was seen in consultation by Dr. Milner. He was monitored on a telemetry unit. He remained well. On the morning of discharge, he was given atenolol, but lisinopril and amlodipine, which he usually takes, were not given. About 2 hours after that dose at 11:30 in the morning, his sitting blood pressure was 121/48 and standing blood pressure was 117/57, supine was 72/60 which is most likely an artifact. His blood pressure was running 130 to 120 systolic throughout most of the hospital stay. The patient was instructed to see Dr. Romero within a week to have his blood pressure checked again. My suspicion is that he had a TIA based on orthostatic hypotension, of which he had symptoms. He may be necessary to be a little lenient on his blood pressure control. FINAL DIAGNOSES: 1. Transient ischemic attack. 2. History of old stroke. 3. History of myocardial infarction. 4. Hypothyroidism. 5. Anemia. 6. Hypertension. 7. Sleep apnea. DISCHARGE MEDICATIONS: 1. Trazodone 50 mg at bedtime. 2. Tamsulosin 0.4 mg at bedtime. 3. Finasteride 5 mg daily. 4. Atorvastatin 80 mg daily. 5. Clopidogrel 75 mg daily. 6. Levothyroxine 125 mcg daily. 7. Omeprazole 20 mg daily. 8. Lorazepam 0.5 mg t.i.d. p.r.n. 9. Atenolol 50 mg daily. Amlodipine and lisinopril have been discontinued as of this admission. I note, his TSH was 1.03 on 06/29/18. CONDITION ON DISCHARGE: Stable. DISPOSITION ON DISCHARGE: Discharge home. [id number]/[facility] #: [id number] MTDD
== END 2018-07-02 12:25 | disposition home or self-care (01) ==
LOC: ED 11:12 → MEDTELE 14:59
PROVIDERS: ADMIT Internal Medicine; ATTEND Internal Medicine
DX: G45.9 Transient cerebral ischemic attack, unspecified (principal); Z86.73 Personal history of transient ischemic attack (TIA), and cerebral infarction without residual deficits; I25.2 Old myocardial infarction; E03.9 Hypothyroidism, unspecified; D64.9 Anemia, unspecified; I10 Essential (primary) hypertension; G47.30 Sleep apnea, unspecified; R41.0 Disorientation, unspecified; R20.0 Anesthesia of skin; R26.81 Unsteadiness on feet; I25.10 Atherosclerotic heart disease of native coronary artery without angina pectoris; K21.9 Gastro-esophageal reflux disease without esophagitis; L98.499 Non-pressure chronic ulcer of skin of other sites with unspecified severity; Z95.5 Presence of coronary angioplasty implant and graft; Z79.01 Long term (current) use of anticoagulants; Z87.891 Personal history of nicotine dependence
CPT/HCPCS: 36415; 70450; 70496; 70498; 71045; 80048; 80053; 80061; 81003; 82270; 83605; 84484; 85025; 85610; 85730; 93005; 94660; 96372; 99284; A9270-GY; G0378; J1644; Q9967

== ENCOUNTER 2018-10-12 12:16 | Emergency (ER) | payer MEDICARE ==
[2018-10-12] MEDS ORDERED: NS 0.9% 1000 ML** 1,000 ML IV ONE (12:58)
--- OUTSIDE RECORDS SUMMARY | 2018-10-12 13:07 | XMS REPORT | Continuity of Care Document ---
:1935 External Reference #:[id number] Author Name Violeta Smith Care Team Providers Name Role Phone Eden Edwards M.D. Primary Care Physician Unavailable Payers Date Identification Numbers Payment Provider Subscriber Effective: 2001 Policy Number: [id number] Medicare [employer] PayID: [id number] [address] [place] [address] [address]: [id number] 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 Onset: 07/13/2011 Coronary arteriosclerosis Yash Nevarez M.D. Onset: 07/13/2011 Hyperlipidemia Olaf Hahn M.D. 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 Onset: 02/26/2013 Aortic valve disorder Olaf Hahn M.D. Onset: 02/26/2013 Mitral valve disorder Olaf Hahn M.D. Onset: 02/26/2013 Edema Olaf Hahn M.D. Onset: 06/23/2013 Rheumatic disease of tricuspid valve Olaf Hahn M.D. Onset: 11/14 Malignant essential hypertension Olaf Hahn M.D. Onset: 2013 Mixed anxiety and depressive disorder Chriss Romero M.D.,[facility] Onset: 07/2016 Note: sees Member History of cerebrovascular accident Javon Coleman M.D. Onset: 02/12/2017 without residual deficits Cerebral ischemia Javon Coleman M.D. 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 Onset: 02/08/2018 Dysphagia Mulu Blackwell NP Onset: 04/03/2018 Note: 09/19/2016 Inactive Problems Electrocardiogram abnormal Olaf Hahn M.D. Onset: 07/21/2011 Inactive: 01/03/2017 Chest pain Olaf Hahn M.D. Onset: 06/23/2013 Inactive: 01/03/2017 Heart murmur Olaf Hahn M.D. Onset: 06/23/2013 Inactive: 01/03/2017 Benign essential hypertension Yash Nevarez M.D. Onset: 07/13/2011 Inactive: 01/03/2017 Diarrhea Yash Nevarez M.D. 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 Recreational Drug Use Denies Drug Use Smoking Status Reviewed: 09/25/18 Patient is a former patient quit when he smoker was 40 yrs old, smoked 3-4 ppd at most smoked for approx 20 yrs. Exercise Type/Frequency Exercises rarely Allergies, Adverse Reactions, Alerts Active Allergies Reaction Severity Comments Date Narcotic after surgery, confusion, hypotention 11/14/2013 Morphine Liposomal 12/27/2016 Cephalexin nausea, candidiasis 01/03/2017 Inactive Allergies NKDA 11/14/2013 Medications Active Medications SIG Qnty Indications Ordering Date Provider Chlorthalidone 1 by mouth every 90tabs I10 Ritesh Sauceda, 09/25/2018 25mg day HOUSING DEVELOPMENT SPECIALIST Tablets Lisinopril 1 tab po q day 90tabs I10 Ritesh Sauceda, 09/25/2018 20mg Tablets HOUSING DEVELOPMENT SPECIALIST Shingrix 2 doses 3 month 2units Z23 Ritesh Sauceda, 09/25/2018 50mcg/0.5ML apart HOUSING DEVELOPMENT SPECIALIST Suspension Rec Tamsulosin HCL Take 1 Capsule 90caps Ritesh Sauceda, 09/11/2018 0.4mg By Mouth AT HOUSING DEVELOPMENT SPECIALIST Capsules Bedtime Left Foot Night Splint as needed AT 1units M72.2 Aracelis Andrew, 2018 night dX m72.2 M.D. Trazodone HCL take 2 tablet by 180tabs G47.00 Ritesh Sauceda, 05/01/2018 50mg mouth every HOUSING DEVELOPMENT SPECIALIST Tablets night at bedtime as needed insomnia Lorazepam 1 tab by mouth 60tabs F41.9 Ritesh Sauceda, 05/01/2018 0.5mg Tablets 2x daily as HOUSING DEVELOPMENT SPECIALIST needed for anxiety Omeprazole 1 by mouth every 90caps Peter Marilee 03/28/2018 20mg Capsules day MD EMORY Damon Levothyroxine Sodium take 1 tablet by 90tabs Ritesh Sauceda, 11/08/2017 mouth every day HOUSING DEVELOPMENT SPECIALIST 125mcg Tablets Cpap Mask And Supplies cpap supplies - R06.81 Chriss Quinteros 08/16/2017 Nick godoy M.D.,[facility] Device cushion, tubing, filters, for sleep apnea R06.02 Clopidogrel Bisulfate take 1 tablet by 90tabs Ramila Mansfield, 2016 75mg mouth every day M.DDana Tablets Atenolol take 1 tablet by 90tabs I10 Ritesh Sauceda, [facility] 02/16/2017 50mg Tablets mouth every day Finasteride 1 by mouth every Unknown 5mg Tablets day Atorvastatin Calcium take 1 tablet by 90tabs E78.5 Ritesh Sauceda, [facility] 80mg mouth every day Tablets Proscar 1 by mouth every Unknown 5mg Tablets day History Medications Lisinopril take 1 tablet by 90tabs I10 Eden Edwards MD 07/09/2018 - 10mg mouth every day 07/17/2018 Tablets Amlodipine Besylate 1 by mouth every 90tabs Ritesh Sauceda, 07/01/2018 - day HOUSING DEVELOPMENT SPECIALIST 07/02/2018 10mg Tablets Lisinopril 1 by mouth every 90tabs Chriss Quinteros 09/19/2017 - 20mg day Brissa Romero,[facility] 11/20/2017 Tablets Levothyroxine Sodium 1 by mouth every 30tabs Chriss Quinteros 09/10/2017 - day Brissa Romero,[facility] 11/08/2017 137mcg Tablets Amlodipine Besylate 1 by mouth every 90tabs Chriss Quinteros 09/10/2017 - day Brissa Romero,[facility] 06/25/2018 10mg Tablets Omeprazole 1 by mouth every 30caps Other Ordering 02/15/2017 - 20mg day Provider 11/20/[address] Stevenspijerri 1/2 tab q day Other Ordering 02/15/2017 - 2mg Provider 09/10/2017 Tablets Amlodipine Besylate Take 1 Tablet By 30tabs Chriss Quinteros 02/07/2017 - Mouth Every Day Brissa Romero,[facility] 09/10/2017 5mg Tablets Ezetimibe 1 tab by mouth 30tabs E78.5 Qutaybeh S. 02/06/2017 - 10mg every day. Brissa Hahn 11/20/2017 Tablets Lisinopril take 1 tablet by 90tabs Chriss Quinteros 01/31/2017 - 10mg mouth every day Brissa Romero,[facility] 09/19/2017 Tablets Bupropion HCL ER 1 by mouth every 30tabs Other Ordering 01/30/2017 - (SR) day Provider 12/12/2017 150mg Tablets ER 12HR Levothyroxine Sodium 1 by mouth every 30tabs Chriss Quinteros 01/30/2017 - day Brissa Romero,[facility] 09/10/2017 150mcg Tablets Fluoxetine HCL 3 by mouth every Chriss Quinteros 01/03/2017 - 20mg day Brissa Romero,[facility] 01/30/2017 Tablets Fluconazole take one pill by 1tabs Mellissa Harvey, 12/29/2016 - 150mg mouth Brissa 01/30/2017 Tablets Finasteride 1 by mouth every 90tabs Other Ordering 06/05/2014 - 5mg day Provider 06/05/2014 Tablets Aspirin 81 po qd Other Ordering 07/23/2013 - 81mg Provider 02/03/[address] Cool 1 po qd Yash Guerrero 07/15/2013 - 100mg Tablets Brissa Nevarez 11/14/2013 Oxycodone HCL take 1-2 tabs po 60tabs Neymar Marrero, 04/08/2013 - 5mg q 4-6 hours prn M.D. 03/18/2013 Tablets pain Voltaren apply 2 grams Lrgtube Neymar Marrero, 11/07/2012 - 1% Gel topically three M.D. 03/18/2013 times a day Percocet take 1-2 tabs po 60tabs Neymar Marrero, 08/29/2012 - 5-325mg q4-6 hours prn M.D. 03/18/2013 Tablets pain Hydrocodone/Acetamin 1-2 po q 4-6 hours 60tabs Neymar Marrero 05/23/2012 - ophen prn pain M.D. 02/26/2013 5-325mg Tablets Percocet 1-2 po q4-6h prn 30tabs Neymar Marrero, 05/06/2012 - 5-325mg pain M.D. 02/26/2013 Tablets Ultram 1 po qid prn 40tabs Yash Guerrero 03/26/2012 - 50mg Tablets Brissa Nevarez 05/02/2012 Zoloft 1 po qd 90tabs Yash Guerrero 02/12/2012 - 50mg Tablets Brissa Nevarez 07/15/2013 Zoloft 1/2 po qd Yash Guerrero 10/06/2011 - 100mg Tablets Brissa Nevarez 02/12/2012 Levoxyl po q day 90talarisa Guerrero 07/24/2011 - 150mcg Brissa Nevarez 01/30/2017 Tablets Zofran 1 q4-6 hours prn 20tabs Yash Guerrero 07/10/2011 - 4mg Tablets nausea Brissa Nevarez 10/06/2011 Levoxyl po qday 90units Yash Guerrero 01/04/2011 - 15mg Brissa Nevarez 07/24/2011 Prilosec 1 po qd 90caps Yo 04/26/2010 - 20mg Brissa Soliz 01/04/[address] Simvastatin 1 po qhs 90talarisa Guerrero 02/14/2010 - 80mg Brissa Nevarez 02/01/2016 Tablets Zoloft 1 po qd 90tabs Yash Guerrero 05/19/2009 - 50mg Tablets Brissa Nevarez 10/06/2011 Diltiazem CD 1 po qd 90caps Yash Guerrero 07/10/2008 - 180mg Brissa Nevarez 07/13/2011 Caps ER 24HR Simvastatin 1 po qd take 90talarisa Guerrero 06/22/2008 - 20mg with existing Rx Brissa Nevarez 02/14/2010 Tablets of simvastatin 40 mgm Zithromax Z-Jose Guadalupe as per directions 1Pack Yash Guerrero 03/30/2008 - 250mg Brissa Nevarez 05/04/2009 Tablets Atenolol 1 po qd 90tabs Yash Guerrero 10/10/2007 - 25mg Tablets Brissa Nevarez 02/16/2017 Simvastatin 1 po qhs (take 90tabs Yash Guerrero 10/10/2007 - 40mg with simvastatin Brissa Nevarez 02/14/2010 Tablets 40 mgm) Doxycycline 2 caps po x 1 dose 2caps Yash Guerrero 03/25/2007 - 100mg. Brissa Nevarez 10/10/2007 Capsules Aspirin 1 PO qd 100tabs Yash Guerrero 03/25/2007 - 81mg Tablets Brissa Nevarez 07/13/2011 Aspirin 1 by mouth every Unknown - 325mg Tablets day 06/12/2018 Fluoxetine HCL 1 by mouth every Unknown - 60mg day 01/03/2017 Capsules Lisinopril 1 by mouth every Unknown - 5mg day 01/31/2017 Tablets Lorazepam 1 tab by mouth 45tabs F41.9 Chriss Quinteros - 0.5mg twice a day as Brissa Romero,FACP 05/01/2018 Tablets needed Iron Supplement by mouth q Tues Unknown - and 02/01/2016 325(65Fe) mg Tablets Vitamin B12 1 po q Tues and Unknown - Tab 02/05/2017 Prozac 1 by mouth every Unknown - 10mg Capsules day 01/03/2017 Bupropion HCL ER Unknown - (XL) 02/01/2016 150mg Tablets ER 24HR Aripiprazole 1 by mouth every Unknown - 2mg day 01/30/2017 Tablets Amphetamine-Dextroam one tablet twice Unknown - phetamine daily as needed 01/30/2017 15mg Tablets Aripiprazole 1/2 tablet per day Unknown - 2mg 02/15/2017 Tablets Aripiprazole take 1 tablet by Unknown - 5mg mouth daily 12/12/2017 Tablets Flomax Take 1 Capsule By 90caps Chriss Quinteros - 0.4mg Capsules Mouth Every Day Brissa Romero,FACP 11/20/2017 Amphetamine-Dextroam 1 by mouth every Unknown - phetamine day 12/12/2017 15mg Tablets Shingrix To Be Given By Unknown - 50mcg Pharmacist Per 11/20/2017 Suspension Rec Standing Order Abilify 1 tab at bedtime Unknown - 5mg Tablets 02/07/2018 Zetia 1 by mouth every Unknown - 10mg Tablets day 02/07/2018 Flomax 1 by mouth at 90caps Zsofia Sohail, - 0.4mg Capsules bedtime HOUSING DEVELOPMENT SPECIALIST 09/25/2018 Ezetimibe Take 1 Tablet By Unknown - 10mg Mouth Every Day 02/21/2018 Tablets Escitalopram Oxalate Take 1 Tablet By F33.1 Unknown - Mouth Every Day 07/09/2018 10mg Tablets I69.315 Aripiprazole Take 1/2 Tablet Unknown - 2mg Tablets By Mouth Every 02/21/2018 Day Aripiprazole Take 1 Tablet By Unknown - 5mg Tablets Mouth AT Bedtime 02/21/2018 Omeprazole 1 by mouth every 30caps Mulu Blackwell NP - 40mg Capsules day 03/28/2018 DR Andradeinopraddy Take 1 Tablet By 90tabs Zsofia Sohail, - 10mg Tablets Mouth Every Day HOUSING DEVELOPMENT SPECIALIST 07/02/2018 Stool Softener 1 by mouth every Unknown - 100mg day 07/09/2018 Capsules Levoxyl 1 po qd 90tabs Yash Nevarez, - .15 Tablets M.D. 01/04/2011 Cardizem LA 1 po qd 90tabs Yash Nevarez, - 180mg Tablets M.D. 07/10/2008 ER 24HR Zoloft 1 po qd 90tabs Yash Nevarez, - 50mg Tablets M.D. 05/04/2009 Zetia 1 PO QHS 90tabs Kristian Sams MD - 10mg Tablets 10/10/2007 Lipitor 1Tab PO hs Kristian Sams MD - 20mg Tablets 10/10/2007 Omeprazole 1 po qd 90caps Yash Nevarez, - 20mg Capsules M.D. 02/01/2016 DR Cantu 1 po qd 30tabs Unknown - 5mg Tablets 11/20/2017 Aggrenox 1 Tab bid 180caps Yash Nevarez, - 25-200mg Caps ER M.D. 07/15/2013 12HR Lorazepam 1 q 6 hours prn 60tabs Unknown - 1mg Tablets 10/06/2011 Ativan 1/2-1 po bid prn 20tabs Unknown - 1mg Tablets 10/06/2011 Centrum Silver 1 po qd Unknown - Tablets 02/02/2015 Melatonin 1 qd hs prn Unknown - 1mg Capsules 02/26/2013 Aspirin 1 po qd 100tabs Yash Nevarez, - 325mg Tablets M.D. 05/02/2012 Prednisone daily for 12 days 70tabs Unknown - 5mg Tablets 02/26/2013 Pain Reliever unk name, prn Unknown - Tab 07/15/2013 Trazodone HCL 1 tablet at 90tabs Chriss Quinteros - 50mg bedtime Brissa Romero,FACP 06/26/2018 Tablets Potassium Chloride ER 1 po qd 90caps Unknown - 07/15/2013 20Meq Capsules ER Wellbutrin SR 1 po bid 180tabs Unknown - 150mg 07/15/2013 Tablets ER 12HR Buspirone HCL 1 po bid 60tabs Unknown - 10mg 07/15/2013 Tablets Diclofenac Sodium 1 tab by mouth 60tabs Unknown - 50mg twice a day 11/14/2013 Tablets Finasteride Unknown - 07/15/2013 Tamsulosin HCL Unknown - 07/15/2013 Bupropion Unknown - 07/15/2013 Clopidogrel 1 po qd 90tabs Unknown - 75mg Tablets 03/14/2017 Sertraline HCL 1 by mouth every 30tabs Unknown - 50mg day 02/01/2016 Tablets Medications Administered in Office Medication SIG Qnty Indications Ordering Provider Date PPD Injection Nurse Visit [place] 12/14/2017 Depomedrol 80MG Neymar Marrero M.D. 04/16/2012 Injection Immunizations CPT Code Status Date Vaccine Reaction Lot # [id number] Given 09/25/2018 Tdap - shot tolerated well, [id number] Tetanus/Diptheria/Acellula no immediate reaction. r Pertussis 80553 Given 02/28/2018 Fluzone High Dose 52185 Given 10/16/2017 Zoster (Shingles) Vaccine (HZV), Recombinant, Subunit, Adjuvanted 33587 Given 02/07/2017 Influenza Virus Vaccine, [id number] Quadrivalent, Split, Preservative Free 99081 Given 02/07/2017 Pneumococcal Conjugate pt tolerated well [id number] Vaccine 13 Valent For Intramuscular Use Q2037 Given 03/09/2012 Fluvirin Im 3Yrs And Older Q2038 Given 02/17/2011 Fluzone Vaccine [id number] 02040 Given 03/25/2010 Influenza Virus 3Yrs & [id number] Over 54216 Given 03/25/2007 Influenza Virus 3Yrs & Over 74010 Given 03/25/2007 Influenza Virus 3Yrs & Over 04131 Given 10/12/2002 Td (History By Patient) 35715 Given 11/11/2001 Pneumovax (History By Patient) Vital Signs Date Vital Result Comment 09/25/2018 2:38pm Height 66 inches 5'6" Weight 189.12 lb Heart Rate 64 /min BP Systolic 157 mmHg BP Diastolic 74 mmHg Body Temperature 98.8 F O2 % BldC Oximetry 95 % BMI (Body Mass Index) 30.5 kg/m2 08/12/2018 3:30pm Height 69 inches 5'9" Weight 183.25 lb with shoes Heart Rate 60 /min BP Systolic Sitting 137 mmHg BP Diastolic Sitting 84 mmHg BMI (Body Mass Index) 27.1 kg/m2 Ejection Fraction 50-55% 12/09/17 echo 07/17/2018 10:19am Height 65 inches 5'5" Weight 188.00 lb Heart Rate 65 /min BP Systolic Sitting 150 mmHg BP Diastolic Sitting 98 mmHg Pain Level 7 O2 % BldC Oximetry 97 % BMI (Body Mass Index) 31.3 kg/m2 07/09/2018 9:17am Height 65 inches 5'5" Weight 194.25 lb Heart Rate 59 /min BP Systolic 155 mmHg BP Diastolic 75 mmHg Body Temperature 96.4 F O2 % BldC Oximetry 99 % BMI (Body Mass Index) 32.3 kg/m2 06/28/2018 11:04am Height 65 inches 5'5" Weight [...] Date Facility Test Result H/L Range Note Urinalysis Profile 07/01/2018 [facility] [place] [address] [phone] Urine Appearance Clear Urine Specific Horton 1.012 N 1.010-1.030 Urine pH 7.0 N 5-9 Urine Urobilinogen Negative Negative Urine Ketones Negative Negative Urine Protein Negative Negative Urine Leukocytes Negative Negative Urine Blood Negative Negative Urine Nitrite Negative Negative Urine Bilirubin Negative Negative Urine Glucose Negative Negative Laboratory test 07/01/2018 [facility] Partial 28.8 seconds N 26.0-36.3 finding [facility] [place] [address] PTT [phone] Inr/Protime 07/01/2018 [facility] Inr 0.99 N 0.77-1.02 [place] [address] [phone] CBC Auto Diff 07/01/2018 [facility] White Blood 5.7 10^3/uL N 3.5-10.8 [place] [address] [phone] Red Blood Count 4.09 10^6/uL N 4.00-5.40 Hemoglobin 12.4 g/dL Low 14.0-18.0 Hematocrit 37 % Low 42-52 Mean Corpuscular Volume 90 fL N 80-94 Mean Corpuscular Hemoglobin 30 pg N 27-31 Mean Corpuscular HGB Conc 34 g/dL N 31-36 Red Cell Distribution Width 13 % N 10.5-15 Platelet Count 152 10^3/uL N 150-450 Mean Platelet Volume 8.4 fL N 7.4-10.4 Abs Neutrophils 3.7 10^3/uL N 1.5-7.7 Abs Lymphocytes 1.3 10^3/uL N 1.0-4.8 Abs Monocytes 0.6 10^3/uL N 0-0.8 Abs Eosinophils 0.2 10^3/uL N 0-0.6 Abs Basophils 0 10^3/uL N 0-0.2 Abs Nucleated RBC 0 10^3/uL Granulocyte % 64.0 % Lymphocyte % 22.3 % Monocyte % 10.3 % Eosinophil % 2.9 % Basophil % 0.5 % Nucleated Red Blood Cells % 0 Laboratory test 07/01/2018 [facility] Lactic Acid 1.2 mmol/L N 0.5-2.0 1 finding [address] [place] [address] [phone] Laboratory test 07/01/2018 [facility] Troponin-I 0.00 ng/mL < 0.04 2 finding [address] [facility] ([facility]) [place] [address] [phone] Comp Metabolic 07/01/2018 [facility] Sodium 140 mmol/L N 135- 145 Panel [address] [place] [address] [phone] Potassium 3.5 mmol/L N 3.5-5.0 Chloride 104 mmol/L N 101-111 Co2 Carbon Dioxide 31 mmol/L N 22-32 Anion Gap 5 mmol/L N 2-11 Glucose 126 mg/dL High 70-100 Blood Urea Nitrogen 15 mg/dL N 6-24 Creatinine 0.76 mg/dL N 0.67-1.17 BUN/Creatinine Ratio 19.7 N 8-20 Calcium 8.7 mg/dL N 8.6-10.3 Total Protein 6.3 g/dL Low 6.4-8.9 Albumin 3.6 g/dL N 3.2-5.2 Globulin 2.7 g/dL N 2-4 Albumin/Globulin Ratio 1.3 N 1-3 Total Bilirubin 0.40 mg/dL N 0.2-1.0 Alkaline Phosphatase 58 U/L N 34-104 Alt 19 U/L N 7-52 Ast 17 U/L N 13-39 Egfr Non- 98.2 >60 Egfr 118.8 >60 3 Lipid Profile 07/01/2018 [facility] Triglycerides 90 mg/dL 4 (Trig/Chol/HDL) [address] [place] [address] [phone] Cholesterol 137 mg/dL 5 HDL Cholesterol 45.1 mg/dL 6 LDL Cholesterol 74 mg/dL 7 Laboratory test 06/29/2018 [facility] TSH (Thyroid 1.03 mcIU/mL N 0.34-5.[address] Stim Horm) [place] [address] [phone] Basic Metabolic 06/29/2018 [facility] Sodium 141 mmol/L N 135- [address] [place] [address] [phone] Potassium 3.8 mmol/L N 3.5-5.0 Chloride 102 mmol/L N 101-111 Co2 Carbon Dioxide 35 mmol/L High 22-32 Anion Gap 4 mmol/L N 2-11 Glucose 115 mg/dL High 70-100 Blood Urea Nitrogen 13 mg/dL N 6-24 Creatinine 0.79 mg/dL N 0.67-1.17 BUN/Creatinine Ratio 16.5 N 8-20 Calcium 9.0 mg/dL N 8.6-10.3 Egfr Non- 93.9 >60 Egfr 113.6 >60 8 CBC Auto Diff 06/29/2018 [facility] White Blood 6.3 10^3/uL N 3.5-10.[address] [place] [address] [phone] Red Blood Count 4.52 10^6/uL N 4.00-5.40 Hemoglobin 13.9 g/dL Low 14.0-18.0 Hematocrit 41 % Low 42-52 Mean Corpuscular Volume 90 fL N 80-94 Mean Corpuscular Hemoglobin 31 pg N 27-31 Mean Corpuscular HGB Conc 34 g/dL N 31-36 Red Cell Distribution Width 13 % N 10.5-15 Platelet Count 159 10^3/uL N 150-450 Mean Platelet Volume 8.3 fL N 7.4-10.4 Abs Neutrophils 4.1 10^3/uL N 1.5-7.7 Abs Lymphocytes 1.4 10^3/uL N 1.0-4.8 Abs Monocytes 0.6 10^3/uL N 0-0.8 Abs Eosinophils 0.2 10^3/uL N 0-0.6 Abs Basophils 0 10^3/uL N 0-0.2 Abs Nucleated RBC 0 10^3/uL Granulocyte % 64.6 % Lymphocyte % 22.7 % Monocyte % 10.0 % Eosinophil % 2.5 % Basophil % 0.2 % Nucleated Red Blood Cells % 0 Lipid Profile 06/29/2018 [facility] Triglycerides 130 mg/dL 9 (Trig/Chol/HDL) [address] [place] [address] [phone] Cholesterol 150 mg/dL 10 HDL Cholesterol 46.8 mg/dL 11 LDL Cholesterol 77 mg/dL 12 Urinalysis Profile 05/20/2018 [facility] Urine Color Yellow [address] [place] [address] [phone] Urine Appearance Cloudy Urine Specific Horton 1.017 N 1.010-1.030 Urine pH 7.0 N 5-9 Urine Urobilinogen Negative Negative Urine Ketones Negative Negative Urine Protein Negative Negative Urine Leukocytes Negative Negative Urine Blood Negative Negative Urine Nitrite Negative Negative Urine Bilirubin Negative Negative Urine Glucose Negative Negative Urine Drug 05/20/2018 [facility] Amphetamine Ur None Detected None Detect SCR ED & [address] Screen [place] [address] [phone] Barbiturates Urine Screen None Detected None Detect Benzodiazepine Urine Screen None Detected None Detect Urine Cannabinoids Screen None Detected None Detect Urine Cocaine Screen None Detected None Detect Urine Opiates Screen None Detected None Detect Urine Phencyclidine Screen None Detected None Detect 13 CBC Auto Diff 05/20/2018 [facility] White Blood 6.4 10^3/uL N 3.5-10.[address] [place] [address] [phone] Red Blood Count 4.31 10^6/uL N 4.00-5.40 [...] Red Blood Cells % 0 Inr/Protime 05/20/2018 [facility] Inr 0.96 N 0.77-1.02 [address] [place] [address] [phone] Laboratory test 05/20/2018 [facility] Lactic Acid 1.1 mmol/L N 0.5-2.0 14 finding [address] [place] [address] [phone] Troponin-I (TnI) 0.00 ng/mL <0.04 15 Laboratory test 05/20/2018 [facility] Alcohol < 10 mg/dL N < 10 finding [address] [place] [address] [phone] Comp Metabolic Panel 05/20/2018 [facility] Sodium 142 mmol/L N 135-145 [address] [place] [address] [phone] Potassium 3.7 mmol/L N 3.5-5.0 Chloride 107 [...] Egfr Non- 91.5 >60 Egfr 110.7 >60 16 Laboratory test 03/06/2018 [facility] TSH (Thyroid 0.60 mcIU/mL N 0.34-5.[address] Stim Horm) [place] [address] [phone] Hemoglobin A1c (Glyco HGB) 6.2 % High 4.0-5.6 17 Laboratory test 01/01/2018 [facility] TSH (Thyroid 0.83 mcIU/mL N 0.34-5.[address] Stim Horm) [place] [address] [phone] Hemoglobin A1c (Glyco HGB) 6.1 % High 4.0-5.6 18 Urine Culture And 12/08/2017 [facility] Urine Culture SEE RESULT [address] [place] [address] [phone] Inr/Protime 12/08/2017 [facility] Inr 0.94 N 0.77- [address] 1.02 [place] [address] [phone] CBC Auto Diff 12/08/2017 [facility] White Blood 5.3 10^3/uL N 3.5-[address] Count 0.8 [place] [address] [phone] Red Blood Count 4.54 10^6/uL N 4.00-5.40 [...] Blood Cells % 0 Laboratory test 12/08/2017 [facility] Lactic Acid 1.5 mmol/L N 0.5-2.0 20 finding [address] [place] [address] [phone] Comp Metabolic 12/08/2017 [facility] Sodium 140 mmol/L N 135- 145 Panel [address] [place] [address] [phone] Potassium 3.4 mmol/L Low 3.5-5.0 Chloride 100 [...] Egfr Non- 86.5 >60 Egfr 104.7 >60 21 Laboratory test 12/08/2017 [facility] Troponin-I (TnI) 0.00 ng/ mL <0.04 finding [address] [place] [address] [phone] TSH (Thyroid Stim Horm) 0.75 mcIU/mL N 0.34-5.60 Magnesium 2.1 mg/dL N 1.9-2.7 Hemoglobin A1c (Glyco HGB) 6.6 % High 4.0-5.6 22 Urinalysis Profile 12/08/2017 [facility] Urine Color Yellow [address] [place] [address] [phone] Urine Appearance Cloudy Urine Specific Horton 1.016 N 1.010-1.030 Urine pH 7.0 N [...] Cell Present Abnormal Absent Laboratory test 11/21/2017 [facility] Stool Culture SEE RESULT 23, 24 finding [facility] [place] [address] [phone] C Difficile PCR SEE RESULT BELOW 25 Stool Calprotectin 293 g/G Abnormal 26 O&P Ova & Parasites Screen SEE RESULT BELOW 27 Laboratory test 11/02/2017 [facility] TSH (Thyroid 0.18 Low 0.34-5.60 [address] [facility] [address] Stim Horm) mcIU/[place] [address] [phone] Hemoglobin A1c (Glyco HGB) 6.3 % High 4.0-5.6 28 Laboratory test 09/17/2017 [facility] Lactic Acid 0.7 mmol/L N 0.5-2.0 29 finding [facility] [place] [address] [phone] CBC Auto Diff 09/17/2017 [facility] White Blood 6.5 10^3/uL N 3.5-10.8 [place] [address] [phone] Red Blood Count 4.56 10^6/uL N 4.0-5.4 [...] Blood Cells % 0.1 Comp Metabolic 09/17/2017 [facility] Potassium 3.3 mmol/L Low 3.5-5.0 Panel 101 [place], [place] [address] [phone] Chloride 105 mmol/L N 101-111 Co2 Carbon [...] Egfr Non- 85.4 >60 Egfr 109.8 >60 30 Sodium 142 mmol/L N 139-145 Anion Gap 7 mmol/L N 2-11 Laboratory test 09/17/2017 [facility] Troponin-I (TnI) 0.01 ng/ mL <0.04 finding [address] [place] [address] [phone] TSH (Thyroid Stim Horm) 0.02 mcIU/mL Low 0.34-5.60 Lipid Profile 08/30/2017 [facility] Triglycerides 79 mg/dL 31 (Trig/Chol/HDL) [address] [place] [address] [phone] Cholesterol 122 mg/dL 32 HDL Cholesterol 43.4 mg/dL 33 LDL Cholesterol 63 mg/dL 34 Basic Metabolic Panel 08/30/2017 [facility] Sodium 142 mmol/L N 139-145 [address] [place] [address] [phone] Potassium 3.6 mmol/L N 3.5-5.0 Chloride 104 mmol/L N 101-111 Co2 Carbon Dioxide 30 mmol/L N 22-32 Anion Gap 8 mmol/L N 2-11 Glucose 123 mg/dL High 70-100 Blood Urea Nitrogen 17 mg/dL N 6-24 Creatinine 0.94 mg/dL N 0.67-1.17 BUN/Creatinine Ratio 18.1 N 8-20 Calcium 8.8 mg/dL N 8.6-10.3 Egfr Non- 77.0 >60 Egfr 99.1 >60 35 Laboratory test 08/30/2017 [facility] Vitamin B12 310 pg/mL N 180-9[address] [place] [phone] TSH (Thyroid Stim Horm) 0.15 mcIU/mL Low 0.34-5.60 37 Laboratory test 04/17/2017 [facility] Renin <0.6 ng/mL/h [address] [place] [address] [phone] Laboratory test 04/17/2017 [facility] Renin <0.6 ng/mL/h [address] [place] [address] [phone] Laboratory test 02/13/2017 [facility] Lactic Acid 1.3 mmol/L N 0.5-2. 40 finding 101 [facility] 0 [place] [address] [phone] CBC Auto Diff 02/13/2017 [facility] White Blood 5.9 10^3/uL N 3.5-10 [facility] Count .8 [place] [address] [phone] Red Blood Count 4.47 10^6/uL N 4.0-5.4 [...] % 0.1 N Comp Metabolic Panel 02/13/2017 [facility] Sodium 140 mmol/L N 133-145 [address] [place] [address] [phone] Potassium 3.7 mmol/L N 3.5-5.0 Chloride 104 [...] 86.7 N >60 Egfr 111.5 N >60 41 Laboratory test 02/13/2017 [facility] Troponin-I (TnI) 0.00 ng/ mL N <0.04 finding [address] [place] [address] [phone] Lipid Profile 02/13/2017 [facility] Triglycerides 80 mg/dL N 42 (Trig/Chol/HDL) [address] [place] [address] [phone] Cholesterol 93 mg/dL N 43 HDL Cholesterol 36.8 mg/dL N 44 LDL Cholesterol 40 mg/dL N 45 Lipid Profile 02/01/2017 [facility] Triglycerides 149 mg/dL N 46 (Trig/Chol/HDL) [address] [place] [address] [phone] Cholesterol 178 mg/dL N 47 HDL Cholesterol 47.9 mg/dL N 48 LDL Cholesterol 100 mg/dL N 49 Basic Metabolic Panel 02/01/2017 [facility] Sodium 140 mmol/L N 133-145 [address] [place] [address] [phone] Potassium 3.9 mmol/L N 3.5-5.0 Chloride 103 mmol/L N 101-111 Co2 Carbon Dioxide 33 mmol/L High 22-32 Anion Gap 4 mmol/L N 2-11 Glucose 123 mg/dL High 70-100 Blood Urea Nitrogen 12 mg/dL N 6-24 Creatinine 0.78 mg/dL N 0.67-1.17 BUN/Creatinine Ratio 15.4 N 8-20 Calcium 9.2 mg/dL N 8.6-10.3 Egfr Non- 95.8 N >60 Egfr 123.2 N >60 50 Laboratory test 02/01/2017 [facility] Vitamin B12 310 pg/mL N 180-914 51 finding [address] [place] [address] [phone] Laboratory test 01/17/2017 [facility] Magnesium 2.2 mg/dL N 1.9-2.7 finding [address] [place] [address] [phone] Basic Metabolic 01/17/2017 [facility] Sodium 140 mmol/L N 133- 145 Panel [address] [place] [address] [phone] Potassium 3.6 mmol/L N 3.5-5.0 Chloride 104 mmol/L N 101-111 Co2 Carbon Dioxide 30 mmol/L N 22-32 Anion Gap 6 mmol/L N 2-11 Glucose 100 mg/dL N 70-100 Blood Urea Nitrogen 17 mg/dL N 6-24 Creatinine 0.90 mg/dL N 0.67-1.17 BUN/Creatinine Ratio 18.9 N 8-20 Calcium 8.7 mg/dL N 8.6-10.3 Egfr Non- 81.2 N >60 Egfr 104.4 N >60 52 Basic Metabolic Panel 02/03/2014 Sodium 139 mmol/L [...] 88.6 N >60 Egfr 114.0 N >60 53 Inr/Protime 02/03/2014 Inr 0.89 N 0.85-1.06 Cath Panel 02/03/2014 [facility] Partial Thrombo Time 30.6 seconds N 24.0 -36.1 CBC Auto Diff 02/03/2014 White Blood Count [...] Nucleated Red Blood Cells % 0.1 N Basic Metabolic Panel 07/11/2013 [facility] Sodium 141 mmol/L 133-[address] [place] [address] [phone] Potassium 3.8 mmol/L 3.5-5.0 Chloride 104 mmol/L 101-111 Co2 Carbon Dioxide 31.0 mmol/L 22-32 Anion Gap 6.0 mmol/L 2-11 Glucose 87 mg/dL 70-100 Blood Urea Nitrogen 21 mg/dL 6-24 Creatinine 0.70 mg/dL 0.50-1.40 BUN/Creatinine Ratio 30.0 High 8-20 Calcium 9.1 mg/dL 8.1-9.9 Egfr Non- 109.4 >60 Egfr 140.6 >60 54 Cath Panel 07/11/2013 [facility] Activated 31.3 seconds 24.0- 36.[address] [place] [address] Time [phone] CBC Auto 07/11/2013 [facility] White Blood 6.4 10^3/uL 4.8- 10.[address] [place] [address] [phone] Red Blood Count 4.20 10^6/uL 4.0-5.4 Hemoglobin [...] Nucleated Red Blood Cells % 0 Inr/Protime 07/11/2013 [facility] Inr 0.97 0.85-1.[address] [place] [address] [phone] Laboratory test 04/24/2013 [facility] Inr 1.08 High 0.85-1.[address] [place] [address] [phone] Laboratory test 04/21/2013 [facility] Inr 1.24 High 0.85-1.06 57 finding [address] [place] [address] [phone] Type & Screen 04/08/2013 [facility] Patient A Negative [place] [address] [phone] Antibody Screen NEGATIVE Urine Microscopic 04/08/2013 [facility] Urine WBC 1+ (<[address] /hpf) [place] [address] [phone] Urine RBC 1+ (<3 /hpf) None Seen Bacteria Urine None Seen None Seen CBC No Diff 04/08/2013 [facility] White Blood 6.3 10^3/uL 4.8 -10.8 [place] [address] [phone] Red Blood Count 4.37 10^6/uL 4.0-5.4 Hemoglobin 13.0 g/dL Low 14.0-18.0 Hematocrit 40 % Low 42-52 Mean Corpuscular Volume 92 fL 80-94 Mean Corpuscular Hemoglobin 30 pg 27-31 Mean Corpuscular HGB Conc 33 g/dL 31-36 Red Cell Distribution Width 13 % 10.5-15 Platelet Count 180 10^3/uL 150-450 Mean Platelet Volume 9 um3 7.4-10.4 Inr/Protime 04/08/2013 [facility] Inr 0.91 0.85-1.[address] [place] [address] [phone] Urinalysis 04/08/2013 [facility] Urine Color Yellow [address] [place] [address] [phone] Urine Appearance Clear Urine Specific [place]orton 1.020 1.010-1.030 Urine Esterase Trace Abnormal Negative Urine Nitrate Negative Negative Urine Urobilinogen Negative E.U./dL Negative Urine Protein Negative mg/dL Negative Urine pH 6.5 5-9 Urine Blood Negative Negative Urine Ketones Negative mg/dL Negative Urine Bilirubin Negative Negative Urine Glucose Negative mg/dL Negative Laboratory test 04/08/2013 [facility] Activated 30.4 24.0- 36.1 [address] [place] [place] [address] Thrombo Time [phone] Basic Metabolic 04/08/2013 [facility] Sodium 140 mmol/L 133- [address] [place] [address] [phone] Potassium 3.7 mmol/L 3.5-5.0 Chloride 104 mmol/L 101-111 Co2 Carbon Dioxide 32.0 mmol/L 22-32 Anion Gap 4.0 mmol/L 2-11 Glucose 108 mg/dL High 70-100 Blood Urea Nitrogen 15 mg/dL 6-24 Creatinine 0.80 mg/dL 0.50-1.40 BUN/Creatinine Ratio 18.8 8-20 Calcium 9.0 mg/dL 8.1-9.9 Egfr Non- 94.0 >60 Egfr 120.9 >60 60 Laboratory test 01/21/2013 [facility] Fluid Crystals None Seen [address] [place], [place] [address] [phone] Body Fluid C&S 01/21/2013 [facility] Body Fluid Cult (SEE NOTE) [address] [place] [place] [address] [phone] Body Fluid Cell 01/21/2013 [facility] Body Fluid Synovial Fluid Count [address] [place] [place] [address] [phone] Body Fluid Appearance Cloudy Body Fluid Color Yellow Body Fluid Volume 1.5 mL Body Fluid WBC 67 Body Fluid RBC 2770 Body Fluid Polys 21 Body Fluid Lymph 54 Body Fluid [place] 22 Body Fluid Eosinophil 2 Body Fluid Total Cells Counted 100 Fluid Reviewed By MD (SEE NOTE) 63 Laboratory test 01/07/2013 [facility] C Reactive < 0.5 mg/dL Less than finding [address] Protein 0.5 [place] [address] [phone] CBC Auto Diff 01/07/2013 [facility] White Blood 5.6 10^3/uL 4.8-10.[address] [place] [address] [phone] Red Blood Count 4.30 10^6/uL 4.0-5.4 Hemoglobin [...] Blood Cells % 0 Laboratory test 01/07/2013 [facility] Erythrocyte Sed 18 mm/Hr 0-[address] [place] [address] [phone] CBC With Manual 05/02/2012 [facility] White Blood 9.7 4.8- 10.[address] Count 10^3/[place] [address] [phone] Red Blood Count 4.11 10^6/uL 4.0-5.4 Hemoglobin [...] Morphology Normal Normal Basic Metabolic Panel 05/02/2012 [facility] Sodium 138 mmol/L 133-145 [address] [place] [address] [phone] Potassium 3.3 mmol/L Low 3.5-5.0 Chloride 101 mmol/L 101-111 Co2 Carbon Dioxide 32.0 mmol/L 22-32 Anion Gap 5.0 mmol/L 2-11 Glucose 119 mg/dL High 70-100 Blood Urea Nitrogen 15 mg/dL 6-24 Creatinine 0.80 mg/dL 0.50-1.40 BUN/Creatinine Ratio 18.8 8-20 Calcium 8.4 mg/dL 8.1-9.9 Egfr Non- 94.2 >60 Egfr 121.2 >60 64 Laboratory test 05/02/2012 [facility] Creatine Kinase 110 U/L 0-200 finding [address] [place] [address] [phone] Comp Metabolic 03/23/2012 [facility] Sodium 138 133-[address] mmol/[place] [address] [phone] Potassium 3.4 mmol/L Low 3.5-5.0 Chloride 104 [...] 1.1 1-3 Total Bilirubin 0.5 mg/dL 0.1-1.0 65 Alkaline Phosphatase 56 U/L 30-110 Alt 18 U/L 14-54 Ast 22 U/L 12-42 Egfr Non- 94.2 >60 Egfr 121.2 >60 66 Laboratory test 03/23/2012 [facility] Uric Acid 3.9 mg/dL 2.6 -7.[address] [place] [address] [phone] CBC Auto Diff 03/23/2012 [facility] White Blood 7.1 10^3/uL 4.8-10.[address] [place] [address] [phone] Red Blood Count 3.86 10^6/uL Low 4.0-5.4 [...] Blood Cells % 0 Laboratory test 03/23/2012 [facility] Erythrocyte Sed 41 MM/HR High 0-[address] [place] [address] [phone] Basic Metabolic 01/24/2012 [facility] Sodium 137 135-[address] mmol/[place] [address] [phone] Potassium 4.2 mmol/L 3.5-5.0 Chloride 103 mmol/L 101-111 Co2 (Carbon Dioxide) 29.0 mmol/L 22-32 Anion Gap 5.0 mmol/L 2-11 67 Glucose 84 mg/dL 70-100 BUN 20 mg/dL 6-24 Creatinine 0.8 mg/dL 0.50-1.40 One Over Creatinine 1.25 BUN/Creatinine Ratio 25.0 High 8-20 Calcium 9.0 mg/dL 8.1-9.9 eGFR Non- 94.2 > 60 eGFR 121.2 > 60 68 Laboratory test 01/24/2012 [facility] TSH 1.02 MIU/ML 0.34- 5.[address] [place] [address] [phone] CBC Auto Diff 01/24/2012 [facility] White Blood 6.3 CUMM 4.8- 10.[address] [place] [address] [phone] Red Cell Count 3.83 CUMM Low 4.6-6.2 [...] Abs Basophils 0 0-0.2 Laboratory test 01/24/2012 [facility] Iron Total 63 g/dL 45 -[address] [place] [address] [phone] Ferritin 92 NG/ML 24-336 Vitamin B12 369 pg/mL 180-914 Folic Acid > 25.8 NG/ML See Below 69 Surgical 12/13/2011 [facility] Surgical [address] Pathology <SEE NOTE> [place] [address] [phone] CBC Auto Diff 10/19/2011 [facility] White Blood 6.6 CUMM 4.8 - [address] Count 10.8 [place] [address] [phone] Red Cell Count 4.25 CUMM Low 4.6-6.2 [...] Eosinophils 0.1 0-0.6 Abs Basophils 0 0-0.2 71 Comp Metabolic Panel 10/19/2011 [facility] Sodium 140 mmol/L 135-[address] [place] [address] [phone] Potassium 3.8 mmol/L 3.5-5.0 Chloride 105 mmol/L 101-111 Co2 (Carbon Dioxide) 31.0 mmol/L 22-32 Anion Gap 4.0 mmol/L 2-11 72 Glucose 100 mg/dL 70-100 BUN 20 mg/dL 6-24 Creatinine 0.9 mg/dL 0.50-1.40 One Over Creatinine 1.11 BUN/Creatinine Ratio 22.2 High 8-20 Calcium 8.9 mg/dL 8.1-9.9 Total Protein 6.5 GM/DL 6.2-8.1 Albumin 3.9 GM/DL 3.2-5.2 Globulin 2.6 GM/DL 2-4 Albumin/Globulin Ratio 1.5 1-3 Bilirubin Total 0.6 mg/dL 0.4-1.5 73 Alkaline Phosphatase 54 U/L 39-117 Alt (SGPT) 24 U/L 17-63 Ast (Sgot) 25 U/L 12-42 eGFR Non- 82.3 > 60 eGFR 105.8 > 60 74 Laboratory test 10/19/2011 [facility] Erythrocyte Sed 13 MM/HR 0-[address] [place] [address] [phone] C Reactive Protein < 0.5 mg/dL Less Than 0.5 TSH 0.82 MIU/ML 0.34-5.60 Laboratory test 10/03/2011 [facility] Stool [address] Culture <SEE NOTE> [place] [address] [phone] CBC Auto Diff 10/02/2011 [facility] White Blood 6.1 CUMM 4.8 - [address] Count 10.8 [place] [address] [phone] Red Cell Count 4.34 CUMM Low 4.6-6.2 Hemoglobin 13.9 g/dL Low 14.0-18.0 Hematocrit 40 % Low 42-52 Mean Corpuscular Volume 93 um3 80-94 Mean Corpuscular Hemoglob 32 pg High 27-31 Mean Corpuscular HGB Cone 34 g/dL 32-36 Redcell Distribution WDTH 13 % 10.5-15 Platelet Count 190 CUMM 150-450 Mean Platelet Volume 9.5 um3 7.4-10.4 76 Comp Metabolic Panel 10/02/2011 [facility] Sodium 138 mmol/L 135-[address] [place] [address] [phone] Potassium 3.4 mmol/L Low 3.5-5.0 Chloride 100 mmol/L Low 101-111 Co2 (Carbon Dioxide) 29.0 mmol/L 22-32 Anion Gap 9.0 mmol/L 2-11 77 Glucose 70 mg/dL 70-100 BUN 16 mg/dL 6-24 Creatinine 1.0 mg/dL 0.50-1.40 One Over Creatinine 1.00 BUN/Creatinine Ratio 16.0 8-20 Calcium 8.9 mg/dL 8.1-9.9 Total Protein 6.5 GM/DL 6.2-8.1 Albumin 4.0 GM/DL 3.2-5.2 Globulin 2.5 GM/DL 2-4 Albumin/Globulin Ratio 1.6 1-3 Bilirubin Total 0.5 mg/dL 0.4-1.5 78 Alkaline Phosphatase 59 U/L 39-117 Alt (SGPT) 24 U/L 17-63 Ast (Sgot) 28 U/L 12-42 eGFR Non- 72.8 > 60 eGFR 93.7 > 60 79 Laboratory test 10/02/2011 [facility] Erythrocyte Sed 10 MM/HR 0-[address] [place] [address] [phone] Manual 10/02/2011 [facility] Polysegmented 71 % 38-[address] [place] [address] [phone] Band Neutrophil 1 % 0-8 Lymphocyte 21 % Low 25-47 Monocyte 7 % 0-13 Absolute Neutrophil Count 4.30 RBC Morphology NORMAL Laboratory test 01/04/2011 [facility] Hemoglobin A1c 5.7 5-[address] [facility] 12/27/2010 [facility] TSH 0.63 MIU/ML 0.34- 5.[address] [place] [address] [phone] CMP Panel 12/27/2010 [facility] Albumin 4.1 GM/DL 3.2-5.[address] [place] [address] [phone] Alt (SGPT) 19 U/L 17-63 Calcium 9.1 mg/dL 8.1-9.9 Co2 (Carbon Dioxide) 32.0 mmol/L 22-32 Chloride 101 mmol/L 101-111 Glucose 92 mg/dL 70-100 Alkaline Phosphatase 55 U/L 39-117 Potassium 3.8 mmol/L 3.5-5.0 Total Protein 6.7 GM/DL 6.2-8.1 Sodium 139 mmol/L 135-145 Ast (Sgot) 24 U/L 12-42 BUN 14 mg/dL 6-24 Anion Gap 6.0 mmol/L 2-11 80 Creatinine 0.80 mg/dL 0.50-1.40 One Over Creatinine 1.20 BUN/Creatinine Ratio 17.5 8-20 Globulin 2.6 GM/DL 2-4 Albumin/Globulin Ratio 1.6 1-3 Bilirubin Total 0.8 mg/dL 0.4-1.5 81 eGFR Non- 94.5 > 60 eGFR 121.5 > 60 82 Lipid Panel 12/27/2010 [facility] Cholesterol 165 mg/dL Less Than [address] [place] [address] [phone] Triglyceride 96 mg/dL 40-200 High Density Lipoprotein 43 mg/dL 40-60 84 Cholesterol/HDL Ratio 3.84 AVERAGE 1-4.97 Low Density Lipoprotein 103 mg/dL High Less Than 100 85 CBC W/Electronic 12/27/2010 [facility] White Blood 6.5 CUMM 4.8-10.[address] [place] [address] [phone] Red Cell Count 4.30 CUMM Low 4.6-6.2 [...] Eosinophils 0.2 0-0.6 Abs Basophils 0 0-0.2 Laboratory test 12/27/2010 [facility] Thyroxine 5.9 g/dL 5- [address] [place] [address] [phone] Laboratory test 07/06/2010 [facility] Hemoglobin A1c 6.3 5-7 finding Lipid Profile 04/26/2010 [facility] Triglyceride 83 mg/dL 40- 200 (Trig/Chol/HDL) [address] [place] [address] [phone] Cholesterol 156 mg/dL Less Than 200 86 High Density Lipoprotein 41 mg/dL 40-60 87 Cholesterol/HDL Ratio 3.80 AVERAGE 1-4.97 Low Density Lipoprotein 98 mg/dL Less Than 100 88 Laboratory test finding 04/26/2010 [facility] Ast (Sgot) 25 U/L 12-[address] [place] [address] [phone] Alt (SGPT) 28 U/L 17-63 Basic Metabolic Panel 04/26/2010 [facility] Sodium 140 mmol/L 135-[address] [place] [address] [phone] Potassium 3.8 mmol/L 3.5-5.0 Chloride 103 mmol/L 101-111 Co2 (Carbon Dioxide) 32.0 mmol/L 22-32 Anion Gap 5.0 mmol/L 2-11 89 Glucose 92 mg/dL 70-100 90 BUN 14 mg/dL 6-24 Creatinine 0.90 mg/dL 0.50-1.40 One Over Creatinine 1.10 BUN/Creatinine Ratio 15.6 8-20 Calcium 9.0 mg/dL 8.1-9.9 eGFR Non- 87.9 > 60 eGFR 106.4 > 60 91 Laboratory test 04/26/2010 [facility] Hemoglobin A1c 6.3 % High Less Than [address] 6.0 [place] [address] [phone] Laboratory test 04/13/2010 [facility] PSA,Diagnostic 1.48 0- 4 [address] NG/[place] [address] [phone] [facility] 02/11/2010 [facility] TSH 1.55 0.34-5.[address] MIU/[place] [address] [phone] Comp Metabolic 02/11/2010 [facility] Sodium 143 135-[address] mmol/[place] [address] [phone] Potassium 3.8 mmol/L 3.5-5.0 Chloride 105 mmol/L 101-111 Co2 (Carbon Dioxide) 30.0 mmol/L 22-32 Anion Gap 8.0 mmol/L 2-11 94 Glucose 115 mg/dL High 70-100 95 BUN 13 mg/dL 6-24 Creatinine 0.90 mg/dL 0.50-1.40 One Over Creatinine 1.10 BUN/Creatinine Ratio 14.4 8-20 Calcium 8.8 mg/dL 8.1-9.9 Total Protein 6.9 GM/DL 6.2-8.1 Albumin 4.1 GM/DL 3.2-5.2 Globulin 2.8 GM/DL 2-4 Albumin/Globulin Ratio 1.5 1-3 Bilirubin Total 0.7 mg/dL 0.4-1.5 96 Alkaline Phosphatase 54 U/L 39-117 Alt (SGPT) 52 U/L 17-63 Ast (Sgot) 39 U/L 12-42 eGFR Non- 87.9 > 60 eGFR 106.4 > 60 97 Lipid Profile 02/11/2010 [facility] Triglyceride 203 mg/dL High 40-200 (Trig/Chol/HDL) [address] [place] [address] [phone] Cholesterol 233 mg/dL High Less Than 200 98 High Density Lipoprotein 42 mg/dL 40-60 99 Cholesterol/HDL Ratio 5.55 AVERAGE High 1-4.97 Low Density Lipoprotein 150 mg/dL High Less Than 100 100 CBC With 02/11/2010 [facility] White Blood 6.9 CUMM 4.8-10.8 Electronic Diff [address] [place] [address] [phone] Red Cell Count 4.59 CUMM Low 4.6-6.2 [...] 0-0.6 Abs Basophils 0 0-0.2 Surgical 06/08/2009 [facility] Surgical [address] Pathology <SEE NOTE> [place] [address] [phone] Laboratory 04/14/2009 [facility] PSA,Diagnosti 1.70 NG/ML 0- [address] [place] [address] [phone] CBC With 04/01/2008 [facility] White Blood 5.3 CUMM 4.[address] Count -10 [place] [address] .8 [phone] Red Cell Count 4.68 CUMM 4.6-6.2 Hemoglobin [...] Basophils 0 0-0.2 Comp Metabolic Panel 04/01/2008 [facility] Sodium 141 mmol/L 135-[address] [place] [address] [phone] Potassium 3.3 mmol/L Low 3.5-5.0 Chloride 106 mmol/L 101-111 Co2 (Carbon Dioxide) 31.0 mmol/L 22-32 Anion Gap 4.0 mmol/L 2-11 104 Glucose 104 mg/dL High 70-100 105 BUN 15 mg/dL 6-24 Creatinine 0.82 mg/dL 0.50-1.40 One Over Creatinine 1.20 BUN/Creatinine Ratio 18.3 8-20 Calcium 9.0 mg/dL 8.1-9.9 106 Total Protein 6.9 GM/DL 6.2-8.1 Albumin 3.8 GM/DL 3.2-5.2 Globulin 3.1 GM/DL 2-4 Albumin/Globulin Ratio 1.2 1-3 Bilirubin Total 0.6 mg/dL 0.4-1.5 Alkaline Phosphatase 67 U/L 39-117 Alt (SGPT) 47 U/L 17-63 Ast (Sgot) 34 U/L 12-42 Lipid Profile 04/01/2008 [facility] Triglyceride 295 mg/dL High 40-200 (Trig/Chol/HDL) [address] [place] [address] [phone] Cholesterol 165 mg/dL Less Than 200 107 High Density Lipoprotein 33 mg/dL Low 40-60 108 Cholesterol/HDL Ratio 5.00 AVERAGE High 1-4.97 Low Density Lipoprotein 73 mg/dL Less Than 100 109 Thyroxine Free 04/01/2008 [facility] Free Thyroxine 0.86 NG/ML 0.61-1.[address] [place] [address] [phone] Laboratory test 04/01/2008 [facility] TSH 0.93 0.34-5.[address] MIU/[place] [address] [phone] PSA Screening 1.42 NG/ML 0-4 111 CBC W/ Electronic 04/04/2007 [facility] White Blood 7.2 CUMM 4.8-10.[address] [place] [place] [address] [phone] Abs Basophils 0 0-0.2 Abs Eosinophils 0.3 [...] 4.6-6.2 Redcell Distribution WDTH 13 % 10.5-15 Comp Metabolic 04/04/2007 [facility] One Over Creatinine 0.90 [address] [place] [address] [phone] Anion Gap 6.0 mmol/L 2-11 113 Albumin/Globulin Ratio 1.2 1-3 Albumin 3.8 GM/DL [...] Creatinine 1.1 mg/dL 0.5-1.4 Lipid Profile 04/04/2007 [facility] Cholesterol/HDL 4.81 1- 4.97 (Trig/Chol/HDL) [address] Ratio AVERAGE [place], [place] [address] [phone] Cholesterol 202 mg/dL High Less Than 200 114 Triglyceride 218 mg/dL High 40-200 High Density Lipoprotein 42 mg/dL 40-60 Low Density Lipoprotein 116 mg/dL High Less Than 100 115 Laboratory test 04/04/2007 [facility] PSA Screening 1.58 NG/ML 0-4 [address] [place] [address] [phone] TSH 1.33 MIU/ML 0.34-5.60 1 [facility] Severe Sepsis and Septic Shock Management Bundle Measure requires all lactic acids initially measuring >2.0 mmol/L be repeated. 2 Troponin-I testing on Plasma Separator Tubes (PST) has a known false positive rate of 0.20-0.40%. All positive troponins reflex immediate secondary confirmatory testing. 3 Because ethnic data is not always [...] 5 Kidney failure <15 (or dialysis) 9 Desirable: <150 Borderline High: 150-199 High: 200-499 Very High: >500 10 Desirable: <200 Borderline High: 200-239 High: >239 11 Low: <40 Desirable: 40-60 High: >60 12 Desirable: <100 Near Optimal: 100-129 Borderline High: 130-159 High: 160-189 Very High: >189 13 The urine specimen was tested at the listed cutoffs: Drug class test level (ng/mL) Amphetamines 500 Barbiturates 200 Benzodiazepine metabolites 200 Cocaine metabolites 150 Cannabinoids 50 Opiates 300 Pcp 25 Specimen was received without chain of custody. Results should be used for medical purposes only. 14 [facility] Severe Sepsis and Septic Shock Management Bundle Measure requires all lactic acids initially measuring >2.0 mmol/L be repeated. 15 Troponin-I testing on Plasma Separator Tubes (PST) has a known false positive rate of 0.20-0.40%. All positive troponins reflex immediate secondary confirmatory testing. 16 Because ethnic data is not always readily [...] 15-29 5 Kidney failure <15 (or dialysis) 17 Therapeutic target for the treatment of diabetes mellitus patients is <7% HBA1C, and in selective patients <6.0%. Please refer to [place] [employer] diabetic care guidelines for further information. 18 Therapeutic target for the treatment of diabetes mellitus patients is <7% HBA1C, and in selective patients <6.0%. Please refer to [place] [employer] diabetic care guidelines for further information. 19 SEE RESULT BELOW Name: HUMA BLUE : [address]: Belen Sousa MD Acct: [id number] Unit: [id number] AGE: 82 Location: [place] [address] Re12/09/17 Dis: 12/10/17 SEX: M Status: DIS IN SPEC: [id number] ANJUM: 12/09/17-[address]: Huma Holcomb MD REQ: [id number] RECD: 12/09/17 STATUS: DIEUDONNE FERNANDEZ DR: Chriss Romero MD _ SOURCE: URINE SPDESC: ORDERED: Urine Culture Procedure Result Reported Site Urine Culture Final 12/11/17- 0815 ML No Growth (<1,000 CFU/mL) * ML - Main Lab . END OF REPORT DEPARTMENT OF PATHOLOGY, [address] [place] [address] Jeb Reyes M.D. Director [facility] # [id number] [facility] Severe Sepsis and Septic Shock Management Bundle Measure requires all lactic acids initially measuring >2.0 mmol/L be repeated. 21 Because ethnic data is not always [...] 5 Kidney failure <15 (or dialysis) 22 Therapeutic target for the treatment of diabetes mellitus patients is <7% HBA1C, and in selective patients <6.0%. Please refer to [place] [employer] diabetic care guidelines for further information. 23 PATIENT WILL BRING BACK PLAIN CONTAINER ANOTHER DAY STOOL KIT ONLY 24 SEE RESULT BELOW Name: HUMA BLUE : [address]: Balwinder Romero MD Acct: [id number] Unit: [id number] AGE: 82 Location: [facility] Re11/21/17 SEX: M Status: REG REF SPEC: [id number] ANJUM: 11/21/17 [facility] DR: Chriss Romero MD REQ: [id number] RECD: 11/21/17 STATUS: COMP _ SOURCE: STOOL [...] CONTINUED ON NEXT PAGE DEPARTMENT OF PATHOLOGY, [address] [address] Jeb Reyes M.D. Director [facility] # [id number] Patient: HUMA BLUE [id number] (Continued) Specimen: [id number] Collected: 11/21/17-799 Received: 11/21/17 (Continued) Procedure Result [...] is requested. Contact the Microbiology Department at [phone]. TEST LIMITATIONS: As with all diagnostic procedures, [...] . END OF REPORT DEPARTMENT OF PATHOLOGY, [address] [place] [address] Jeb Reyes M.D. Director ALY # [id number] SEE RESULT BELOW Name: HUMA BLUE : [address]: Balwinder Romero MD Acct: [id number] Unit: [id number] AGE: 82 Location: [facility] Re11/21/17 SEX: M Status: REG REF SPEC: [id number] ANJUM: 11/21/17 [facility] [address]: Chriss Romero MD REQ: [id number] RECD: 11/22/17 STATUS: COMP _ SOURCE: STOOL [...] . END OF REPORT DEPARTMENT OF PATHOLOGY, [address] [place] [address] Jeb Reyes M.D. Director [facility] # [id number] Interpretation: Abnormal (>120.0 mcg/g) REFERENCE VALUE <=50.0 (Normal) Test Performed by: [facility] - [address] [address] 27 SEE RESULT BELOW Name: HUMA BLUE : [address]: Balwinder Romero MD Acct: [id number] Unit: [id number] AGE: 82 Location: [facility] Re11/21/17 SEX: M Status: REG REF SPEC: [id number] ANJUM: 11/21/17-[address]: Chriss Romero MD REQ: [id number] RECD: 11/21/17 STATUS: RES _ SOURCE: STOOL [...] is requested. Contact the Microbiology Department at [phone]. TEST LIMITATIONS: As with all diagnostic procedures, [...] CONTINUED ON NEXT PAGE DEPARTMENT OF PATHOLOGY, [address] [place] [address] Jeb Reyes M.D. Director [facility] # [id number] Patient: HUAM BLUE [id number] (Continued) Specimen: [id number] Collected: 11/21/17-799 Received: 11/21/17-1055 (Continued) Procedure Result [...] . END OF REPORT DEPARTMENT OF PATHOLOGY, [address] [place] [address] Jeb Reyes M.D. Director [facility] # [id number] 28 Therapeutic target for the treatment of diabetes mellitus patients is <7% HBA1C, and in selective patients <6.0%. Please refer to [place] [employer] diabetic care guidelines for further information. 29 [facility] Severe Sepsis and Septic Shock Management Bundle Measure requires all lactic acids initially measuring >2.0 mmol/L be repeated. 30 Because ethnic data is not always [...] 5 Kidney failure <15 (or dialysis) 31 Desirable: <150 Borderline High: 150-199 High: 200-499 Very High: >500 32 Desirable: <200 Borderline High: 200-239 High: >239 33 Low: <40 Desirable: 40-60 High: >60 34 Desirable: <100 Near Optimal: 100-129 Borderline High: 130-159 High: 160-189 Very High: >189 35 Because ethnic data is not always readily [...] 15-29 5 Kidney failure <15 (or dialysis) 36 Normal Range 180 to 914 Indeterminate Range 145 to 180 Deficient Range <145 37 FASTING 10 HOUR 38 REFERENCE VALUE (Peripheral vein specimen) Na-deplete, upright: Mean: 5.9 Range: 2.9-10.8 Na-replete, upright: Mean: 1.0 Range: < or=0.6-3.0 ADDITIONAL INFORMATION Testing performed by Liquid Chromatography-Tandem Mass Spectrometry (LC-MS/MS). This test was developed and its performance characteristics determined by [facility] in a manner consistent with CLIA requirements. This test has not been cleared or approved by the U.S. Food and Drug Administration. Test Performed by: [facility] - [address] [address] 39 REFERENCE VALUE (Peripheral vein specimen) Na-deplete, upright: Mean: 5.9 Range: 2.9-10.8 Na-replete, upright: Mean: 1.0 Range: < or=0.6-3.0 ADDITIONAL INFORMATION Testing performed by Liquid Chromatography-Tandem Mass Spectrometry (LC-MS/MS). This test was developed and its performance characteristics determined by [facility] in a manner consistent with CLIA requirements. This test has not been cleared or approved by the U.S. Food and Drug Administration. Test Performed by: [facility] - [address] [address] 40 [facility] Severe Sepsis and Septic Shock Management Bundle Measure requires all lactic acids initially measuring >2.0 mmol/L be repeated. 41 Because ethnic data is not always [...] 5 Kidney failure <15 (or dialysis) 42 Desirable <150 Borderline high 150-199 High 200-499 Very High >500 43 Desirable <200 Borderline high 200-239 High >239 44 Low <40 Desirable: 40-60 High: >60 45 Desirable: <100 mg/dL Near Optimal: 100-129 mg/dL Borderline High: 130-159 mg/dL High: 160-189 mg/dL Very High: >189 mg/dL 46 Desirable <150 Borderline high 150-199 High 200-499 Very High >500 47 Desirable <200 Borderline high 200-239 High >239 48 Low <40 Desirable: 40-60 High: >60 49 Desirable: <100 mg/dL Near Optimal: 100-129 mg/dL Borderline High: 130-159 mg/dL High: 160-189 mg/dL Very High: >189 mg/dL 50 Because ethnic data is not always [...] 5 Kidney failure <15 (or dialysis) 51 Normal Range 180 to 914 Indeterminate Range 145 to 180 Deficient Range <145 52 Because ethnic data is not always [...] 5 Kidney failure <15 (or dialysis) 53 Because ethnic data is not always readily [...] 15-29 5 Kidney failure <15 (or dialysis) 54 Because ethnic data is not always [...] 5 Kidney failure <15 (or dialysis) 55 labs to be drawn between July 09 - 2013 56 Please note the change in the INR reference range effective 13. 57 Please note the change in the INR reference range effective 13. 58 Please note the change in the INR reference range effective 13. 59 AA 04/16/13 60 Because ethnic data is not always readily [...] 15-29 5 Kidney failure <15 (or dialysis) 61 LEFT KNEE Synovial (Joint) Fluid 62 RUN DATE: 01/25/13 [facility] LIVE PAGE 1 RUN TIME: [address] [place] [address] Specimen Inquiry Name: HUMA BLUE : [address]: Neymar Marrero MD Acct: [id number] Unit: [id number] AGE: 77 Location: [facility] Re01/21/13 SEX: M Status: REG REF SPEC: [id number] ANJUM: 01/21/13-[address]: Neymar Marrero MD REQ: [id number] RECD: 01/21/13-1035 STATUS: COMP _ SOURCE: JOINT FLUI SPDESC:KNEE LEFT ORDERED: KEREN Lara/GS COMMENTS: LEFT KNEE Procedure Result Verified Site Body Fluid Gram Stain Final 01/21/13- 1229 ML 1+ Polys No Organisms Seen Preparation By Direct Smear Body Fluid Culture Final 01/25/13- 1010 ML No Growth Day 4 END OF REPORT * ML=Testing performed at Main Lab DEPARTMENT OF PATHOLOGY, [address] [place] [address] Jeb Reyes M.D. Director [facility] Permit #[id number] 63 Slide and differential reviewed. No bacteria, blasts or other malignant cells seen. REVIEWED BY JEB REYES MD 95 Because ethnic data is not always readily [...] 15-29 5 Kidney failure <15 (or dialysis) 65 A metabolite of Naproxen, O-desmethylnaproxen, has been shown to interfere with the [place] method for measuring total bilirubin. Samples from patients who have taken Naproxen have shown spurious elevation in total bilirubin levels. 66 Because ethnic data is not always readily [...] 15-29 5 Kidney failure <15 (or dialysis) 67 Anion gap measurement may be of limited value in the presence of any alkalosis, especially in a combined acid base disorder. . 68 Because ethnic data is not always readily [...] 15-29 5 Kidney failure <15 (or dialysis) 69 Please note: New reference range, effective 05/25/11 NORMAL REFERENCE RANGE: GREATER THAN 4.1 NG/ML 70 ---- RUN DATE: 12/15/11 [facility] NMI LIVE PAGE 1 RUN TIME: 1323 Specimen Inquiry RUN USER: INTERFACE -- Name: BLUEHUMA Accapril#: [id number] Status: REG REF Re12/13/11 Age/Sex: 76/M Unit#: [id number] Location: 2END[facility] : 36 -- Specimen: [id number] SOUT Spec Date:12/13/11- Subm Dr: [place] Damon MD Spec Type: SURGICAL [...] polyp (see comment). -- DEPARTMENT OF PATHOLOGY, [address] [place] [address] [facility] Permit #[id number] Jeb Reyes M.D. Director Iona Denise M.D. Interior Mechanic Dir florentin -- -- RUN DATE: 12/15/11 [facility] NMI LIVE PAGE 2 RUN TIME: 1323 Specimen Inquiry RUN USER: INTERFACE -- Name: HUMA BLUE Status: REG REF Re12/13/11 Age/Sex: 76/M Unit#: [id number] Location: [address] [place], [place] [address]O.B. 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 Part 3 (sigmoid nodule) shows colonic mucosa with again evidence of collagenous colitis and with hyperplastic change. Signed Electronically by: IONA DENISE 12/15/11 1323 -- -- DEPARTMENT OF PATHOLOGY, [address] [place] [address] [facility] Permit #[id number] Jeb Reyes M.D. Director Iona Denise M.D. Interior Mechanic Dir florentin -- 71 Lymphopenia % 72 Anion gap measurement may be of limited value in the presence of any alkalosis, especially in a combined acid base disorder. . 73 A metabolite of Naproxen, O-desmethylnaproxen, has been shown to interfere with the [place] method for measuring total bilirubin. Samples from patients who have taken Naproxen have shown spurious elevation in total bilirubin levels. 74 Because ethnic data is not always readily [...] 15-29 5 Kidney failure <15 (or dialysis) 75 RUN DATE: 10/10/11 [facility] NMI LIVE PAGE 1 RUN TIME: 1455 Specimen Inquiry RUN USER: INTERFACE Name: HUMA BLUE Accapril#: [id number] Status: REG REF Re10/03/11 Age/Sex: 76/M Unit#: [id number] Location: [facility] : 37 SPEC #: [id number] ANJUM: 10/03/11 STATUS: COMP REQ #: [id number] RECD: 10/03/[address] [facility] [address]: Yash Nevarez III, MD SOURCE: STOOL ENTR: 10/03/[address] [facility] [address]: LESLI: ORDERED: STOOL CULTURE, O P (FULL), O P: GIAR/CRYP, C. DIFF AMP DNA, STL LACTOF QUERIES: MEDENT REQUISITION # [id number] ACT WKST: P 10/07/11 #1 Procedure Result [...] ANTIGEN NEGATIVE BY IMMUNOASSAY DEPARTMENT OF PATHOLOGY, [address] [place] [address] [facility] Permit #[id number] Brissa Cummings M.D. Continuous Yarn Dyeing Machine Operator RUN DATE: 10/10/11 [facility] NMI LIVE PAGE 2 RUN TIME: 7575 Specimen Inquiry RUN USER: INTERFACE Name: HUMA BLUE Status: REG REF Re10/03/11 Age/Sex: 76/M Unit#: [id number] Location: [facility]. : 36 -- -- CONTINU ED Procedure [...] is requested. Contact the Microbiology Department at [phone]. TEST LIMITATIONS: As with all diagnostic procedures, [...] LACTOFERRIN POSITIVE BY IMMUNOASSAY DEPARTMENT OF PATHOLOGY, [address] [place] [address] [facility] Permit #[id number] Jeb Reyes M.D. Director Iona Denise M.D. Continuous Yarn Dyeing Machine Operator RUN DATE: 10/10/11 [facility] NMI LIVE PAGE 3 RUN TIME: 7016 Specimen Inquiry RUN USER: INTERFACE Name: BLUEHUMA Status: REG REF Re10/03/11 Age/Sex: 76/M Unit#: [id number] Location: [facility] : 36 -- -- CONTINU ED Procedure Result Verified Site FECAL LACTOFERRIN (STOOL WBC) Final (continued) 10/03/11- 1455 TEST LIMITATIONS: Assay detects elevated levels of lactoferrin released from fecal leukocytes as a marker of intestinal inflammation. The test may not be appropriate in immunocompromised persons. Fecal samples from breast fed infants should not be used with this assay. [facility] Permit #[id number] [address] [place] [address] DEPARTMENT OF PATHOLOGY, [address] [place] [address] [facility] Permit #[id number] Brissa Cummings M.D. Continuous Yarn Dyeing Machine Operator [address] 1 77 Anion gap measurement may be of limited value in the presence of any alkalosis, especially in a combined acid base disorder. . 78 A metabolite of Naproxen, O-desmethylnaproxen, has been shown to interfere with the [place] method for measuring total bilirubin. Samples from patients who have taken Naproxen have shown spurious elevation in total bilirubin levels. 79 Because ethnic data is not always [...] 5 Kidney failure <15 (or dialysis) 80 Anion gap measurement may be of limited value in the presence of any alkalosis, especially in a combined acid base disorder. . 81 A metabolite of Naproxen, O-desmethylnaproxen, has been shown to interfere with the [place] method for measuring total bilirubin. Samples from patients who have taken Naproxen have shown spurious elevation in total bilirubin levels. 82 Because ethnic data is not always readily [...] 15-29 5 Kidney failure <15 (or dialysis) 83 CHOLESTEROL INTERPRETATION: Desirable: Less than 200 MG/DL Borderline-High Risk: 200-239 MG/DL High-Risk: 240 MG/DL and over 84 HDL INTERPRETATION: Undesirable: High Risk: Less than 40 MG/DL Desirable: Low Risk: Greater than 60 MG/DL 85 LDL INTERPRETATION: Low Risk Optimal Level: LDL Less than 100 MG/DL Near or Above Optimal: LDL 100-129 MG/DL Borderline High Risk: LDL 130-159 MG/DL High Risk: LDL 160-189 MG/DL Very High Risk: LDL Greater than 189 MG/DL 86 CHOLESTEROL INTERPRETATION: Desirable: Less than 200 [...] Risk: LDL Greater than 189 MG/DL 89 Anion gap measurement may be of limited value in the presence of any alkalosis, especially in a combined acid base disorder. . 90 Note change in reference range as of 01/23/08. The change was based on recommendations from the [place] [employer]. 91 Because ethnic data is not always readily [...] 15-29 5 Kidney failure <15 (or dialysis) 92 THERAPEUTIC TARGET FOR THE TREATMENT OF DIABETES MELLITUS PATIENTS IS <7% HBA1C, AND IN SELECTIVE PATIENTS <6.0%. PLEASE REFER TO [place] [employer] DIABETIC CARE GUIDELINES FOR FURTHER INFORMATION. 93 * SERUM LEVELS OF PSA MEASURED USING THE [employer] ACCESS HYBRITECH IMMUNOASSAY SHOULD NOT BE INTERPRETED ABSOLUTE EVIDENCE OF THE PRESENCE OR ABSENCE OF DISEASE. THE PSA VALUE SHOULD BE USED IN CONJUNCTION WITH OTHER PERTINENT CLINICAL DIAGNOSTIC PROCEDURES. 94 Anion gap measurement may be of limited value in the presence of any alkalosis, especially in a combined acid base disorder. . 95 Note change in reference range as of 01/23/08. The change was based on recommendations from the [place] [employer]. 96 A metabolite of Naproxen, O-desmethylnaproxen, has been shown to interfere with the [place] method for measuring total bilirubin. Samples from patients who have taken Naproxen have shown spurious elevation in total bilirubin levels. 97 Because ethnic data is not always readily [...] 15-29 5 Kidney failure <15 (or dialysis) 98 CHOLESTEROL INTERPRETATION: Desirable: Less than 200 MG/DL Borderline-High Risk: 200-239 MG/DL High-Risk: 240 MG/DL and over 99 HDL INTERPRETATION: Undesirable: High Risk: Less than 40 MG/DL Desirable: Low Risk: Greater than 60 MG/DL 100 LDL INTERPRETATION: Low Risk Optimal Level: LDL Less than 100 MG/DL Near or Above Optimal: LDL 100-129 MG/DL Borderline High Risk: LDL 130-159 MG/DL High Risk: LDL 160-189 MG/DL Very High Risk: LDL Greater than 189 MG/DL 101 ----- RUN DATE: 06/10/09 [facility] NMI LIVE PAGE 1 RUN TIME: 1526 Specimen Inquiry RUN USER: INTERFACE -- Name: HUMA BLUE Status: REG REF Re06/08/09 Age/Sex: 73/M Unit#: [id number] Location: [facility] : 36 -- Specimen: [id number] SOUT Spec Date: 06/08/[address]: [place] liang MD Spec Type: SURGICAL P Received: 06/09/099876 Copies to: Yash Nevarez III, MD SPECIMEN [...] 06/10/09 1524 -- -- DEPARTMENT OF PATHOLOGY, [address] [place] [address] [facility] Permit #[id number] Jeb Reyes M.D. Director Iona Denise M.D. Interior Mechanic Dir florentin -- 102 * SERUM LEVELS OF PSA MEASURED USING THE [employer] VONDA ACCESS HYBRITECH IMMUNOASSAY SHOULD NOT BE INTERPRETED ABSOLUTE EVIDENCE OF THE PRESENCE OR ABSENCE OF DISEASE. THE PSA VALUE SHOULD BE USED IN CONJUNCTION WITH OTHER PERTINENT CLINICAL DIAGNOSTIC PROCEDURES. 103 PATIENT MAY HAVE RESULTS PER DOCTOR'S AUTHORIZATION. Questions regarding this report should be directed to your doctor. FASTING 104 Anion gap measurement may be of limited value in the presence of any alkalosis, especially in a combined acid base disorder. . 105 Note change in reference range as of 01/23/08. The change was based on recommendations from the [place] [employer]. 106 Please note change in reference range effective 07 . 107 CHOLESTEROL INTERPRETATION: Desirable: Less than 200 MG/DL Borderline-High Risk: 200-239 MG/DL High-Risk: 240 MG/DL and over 108 HDL INTERPRETATION: Undesirable: High Risk: Less than 40 MG/DL Desirable: Low Risk: Greater than 60 MG/DL 109 LDL INTERPRETATION: Low Risk Optimal Level: LDL Less than 100 MG/DL Near or Above Optimal: LDL 100-129 MG/DL Borderline High Risk: LDL 130-159 MG/DL High Risk: LDL 160-189 MG/DL Very High Risk: LDL Greater than 189 MG/DL 110 PLEASE NOTE NEW REFERENCE RANGES. 111 * SERUM LEVELS OF PSA MEASURED USING THE [employer] ACCESS HYBRITECH IMMUNOASSAY SHOULD NOT BE INTERPRETED ABSOLUTE EVIDENCE OF THE PRESENCE OR ABSENCE OF DISEASE. THE PSA VALUE SHOULD BE USED IN CONJUNCTION WITH OTHER PERTINENT CLINICAL DIAGNOSTIC PROCEDURES. 112 FASTING 113 Anion gap measurement may be of limited value in the presence of any alkalosis, especially in a combined acid base disorder. . 114 Classification: Borderline High . 115 CALCULATED LDL APPROXIMATES THE VALUE OF A DIRECT LDL MEASUREMENT. Classification: Near or above optimal . 116 * SERUM LEVELS OF PSA MEASURED USING THE [employer] ACCESS HYBRITECH IMMUNOASSAY SHOULD NOT BE INTERPRETED ABSOLUTE EVIDENCE OF THE PRESENCE OR ABSENCE OF DISEASE. THE PSA VALUE SHOULD BE USED IN CONJUNCTION WITH OTHER PERTINENT CLINICAL DIAGNOSTIC PROCEDURES. Procedures Date Code Description Status 07/02/2018 96869 EKG, Interpretation Only Completed 06/07/2018 78137 EEG Recording Awake & Drowsy Completed 02/22/2018 69262 EKG Tracing & Interpretation Completed 12/09/2017 05226 ECHO Transthorasic Realtime 2D W Doppler & Color Flow Completed Hosp 02/14/2017 73126 Treadmill Interp/Report Only Completed 02/14/2017 40439 Stress Test Supervsn W/Out I/R Completed 02/06/2017 77170 EKG Tracing & Interpretation Completed 02/06/2017 16839 EKG Tracing & Interpretation Completed 01/25/2017 85692 ECHO Transthorasic Realtime 2D W Doppler & Color Flow Completed Hosp 12/27/2016 79136 Closed TX Phalanx finger/thumb shaft w/o manipulation Completed 09/01/2016 97115 ECHO Transthorasic Realtime 2D W Doppler & Color Flow Completed Hosp 08/22/2016 91008 EKG Tracing & Interpretation Completed 02/29/2016 36409 ECHO Transthoracic, Real-Time 2D With Doppler And Completed Color Flow 02/02/2016 78901 EKG Tracing & Interpretation Completed 10/11/2014 51764 ECHO Transthorasic Realtime 2D W Doppler & Color Flow Completed Hosp 06/05/2014 36916 EKG Tracing & Interpretation Completed 05/04/2014 87521 Xray Knee 3 Views Completed 05/04/2014 41823 Rad Exam; Knee, Ap&L Completed 02/06/2014 50823 Left Heart Cath. Incl S/I Coronaries, Angio S/I V Gram Completed If Done 02/06/2014 31579 Intravascular Blood Flow Velocity Completed 01/27/2014 37339 ECHO Transthoracic, Real-Time 2D With Doppler And Completed Color Flow 01/22/2014 65526 ECHO Stress Test Incl Perf Contiuous ekg Monitoring Completed W/Phys Superv 01/22/2014 28130 ECHO Stress Test Incl Perf Contiuous ekg Monitoring Completed W/Phys Superv 11/14/2013 82877 EKG Tracing & Interpretation Completed 10/06/2013 91719 Xray Knee 3 Views Completed 07/24/2013 90350 EKG Tracing & Interpretation Completed 07/19/2013 15114 EKG, Interpretation Only Completed 07/18/2013 82990 Percutaneous Transcatheter Placement Of Intracoronary Completed Stent 07/18/2013 68862 EKG, Interpretation Only Completed 07/18/2013 10825 Left Health Catheterization W/Inj For Left Completed Ventriculography,S&I 07/18/2013 24589 Cath PLMT&NJX L Ventriculog Img S&I Completed 07/18/2013 06152 Left Heart Cath. Incl S/I Coronaries, Angio S/I V Gram Completed If Done 07/18/2013 12600 Cardiac Cath,LT Hrtmincl Intraprocedural Ink LT Completed Ventricul Mammary 07/07/2013 85057865 Mammogram Completed 07/04/2013 30972 ECHO Transthorasic Realtime 2D W Doppler & Color Flow Completed Hosp 07/04/2013 95220 EKG Tracing & Interpretation Completed 07/02/2013 66086 Treadmill Interp/Report Only Completed 07/02/2013 01620 Stress Test Supervsn W/Out I/R Completed 06/23/2013 12161 EKG Tracing & Interpretation Completed 05/30/2013 56259 Rad Exam; Knee Comp Completed 04/24/2013 11925 Xray Knee 3 Views Completed 04/16/2013 61133 Revision TKA W Or W/O Allograft;Femoral & Entire Completed Tibial Component 04/16/2013 25964 Revision TKA W Or W/O Allograft;Femoral & Entire Completed Tibial Component 02/26/2013 93907 EKG Tracing & Interpretation Completed 01/29/2013 71643 ECHO Transthoracic, Real-Time 2D With Doppler And Completed Color Flow 01/21/2013 18094 Inject/Drain Joint/Bursa Major W/O US Completed 11/07/2012 12064 Xray Knee 3 Views Completed 11/07/2012 92846 Rad Exam; Knee, Ap&L Completed 08/14/2012 84605 TKR Total Knee Replacement Completed 08/14/2012 88841 TKR Total Knee Replacement Completed 06/08/2012 71003 Treadmill Interp/Report Only Completed 06/08/2012 05266 Stress Test Supervsn W/Out I/R Completed 06/08/2012 57129 EKG, Interpretation Only Completed 05/15/2012 23519 Arthroscopy,Knee,Meniscectomy Media & Lateral Completed 05/15/2012 57342 Arthroscopy,Knee,Meniscectomy Media & Lateral Completed 05/02/2012 11898 EKG Tracing & Interpretation Completed 04/16/2012 50086 Inject/Drain Joint/Bursa Major W/O US Completed 12/13/2011 64161027 Colonoscopy Completed 11/30/2011 50001 Polysomnography Sleep Staging 4+ Parameters W/Cpap Completed 09/28/2011 07193 Treadmill Interp/Report Only Completed 09/28/2011 01136 Stress Test Supervsn W/Out I/R Completed 09/06/2011 53538 Holter Monitoring 24 HR New Completed 09/04/2011 10655 ECHO Stress Test Incl Perf Contiuous ekg Monitoring Completed W/Phys Superv 07/21/2011 32766 EKG Tracing & Interpretation Completed 07/04/2011 29938 ECHO Transthorasic Realtime 2D W Doppler & Color Flow Completed Hosp 07/04/2011 10042 Pulse Wave/Continuous-Interp.RPT Completed 07/04/2011 05229 Color Flow Doppler/Interp & Reprt Completed 01/04/2011 16506 EKG Tracing & Interpretation Completed 03/25/2010 34459 Admin Of Inj Completed 12/15/2009 355879471 Diabetic Retinal Eye Exam Completed 06/08/2009 20483913 Colonoscopy Completed 08/05/2003 19595959 Colonoscopy Completed 03/31/1999 81612392 Colonoscopy Completed Encounters Type Date Location Provider Dx Diagnosis Office Visit 08/12/2018 [facility] Mili CasillasDana Fernando, 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 Too G45.9 Transient Assoc,artemio Isaac M.D. 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 Barbara R41.0 Disorientation, 10:11a Assoc,artemio Trujillo NP unspecified Hospitalists R00.1 Bradycardia, unspecified I25.10 Athscl heart disease of [place] coronary artery w/o ang pctrs E07.9 Disorder of thyroid, unspecified D64.9 Anemia, unspecified E78.5 Hyperlipidemia, unspecified I10 Essential (primary) hypertension G47.30 Sleep apnea, unspecified K21.9 Gastro-esophageal reflux disease without esophagitis Office Visit 06/28/2018 [facility] Mulu D64.9 Anemia, 11:00a HERBER Blackwell unspecified F33.1 Major depressive disorder, recurrent, moderate K59.00 Constipation, unspecified Office Visit 06/10/2018 1:15p [place], F33.1 Major depressive Neurologic M.D. 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 Office Visit 05/01/2018 9:20a [facility] Internal Jadeofia Sohail, G47.00 Insomnia , Medicine - HOUSING DEVELOPMENT SPECIALIST unspecified [address] F33.1 Major depressive disorder, recurrent, moderate E78.5 Hyperlipidemia, unspecified I10 Essential (primary) hypertension R73.03 Prediabetes F41.1 Generalized anxiety disorder Office Visit 04/03/2018 2:20p [facility] Internal Zsofia Sohail, R73.03 Prediabetes Medicine - [address] HOUSING DEVELOPMENT SPECIALIST [address] K21.9 Gastro-esophageal reflux disease without esophagitis [...] (valve) insufficiency I25.10 Athscl heart disease of 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 other Hospitalists nontraumatic intracranial hemorrhage H53.8 Other visual disturbances I10 Essential (primary) hypertension E78.5 Hyperlipidemia, unspecified Office Visit 12/09/2017 Neurohospitalist Jamie H53.8 Other visual 7:00a Clinic Brissa Haas disturbances I10 Essential (primary) hypertension Z86.73 Prsnl hx of TIA (TIA), and cereb infrc w/o resid deficits Z79.02 residential (current) use of antithrombotics/antiplatelets Office Visit 12/09/2017 [facility] I69.298 Other sequelae of 3:03p artemio [...] and cereb infrc w/o resid deficits Z79.02 residential (current) use of antithrombotics/antiplatelets Office Visit 12/08/2017 [facility] Kecia H53.8 Other visual 3:03p Assoc,pc Sp, HERBER disturbances Hospitalists E78.5 Hyperlipidemia, unspecified E03.9 Hypothyroidism, unspecified F33.9 Major depressive disorder, recurrent, unspecified F41.9 Anxiety disorder, unspecified Office Visit 11/20/2017 2:40p [facility] Chriss Quinteros R19.7 Diarrhea, Angelo Romero M.D.,FACP unspecified E03.9 Hypothyroidism, unspecified Office Visit 10/19/2017 2:20p [facility] Internal Chriss Quinteros I10 Essential ( primary) Angelo Romero M.D.,FACP hypertension [address] F33.1 Major depressive disorder, recurrent, moderate E03.9 Hypothyroidism, unspecified Office Visit 09/19/2017 2:40p [facility] Internal Chriss Quinteros I10 [...] [address] I25.110 Athscl heart disease 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 Luis R07.9 Chest pain, Assoc,DEBORAH Ayala unspecified Hospitalists G47.33 Obstructive sleep apnea (adult) (pediatric) I25.110 Athscl heart disease of [place] cor art w unstable ang pctrs I10 Essential (primary) hypertension Office Visit 02/12/2017 2:30p [place] [facility] Javon Coleman, Z86.73 Prsnl hx of Services Of Katerina Brumfield TIA (TIA), and cereb infrc w/o resid deficits I10 Essential (primary) hypertension E78.5 Hyperlipidemia, unspecified Z79.02 manager intermediate (current) use of antithrombotics/antiplatelets Office Visit 02/07/2017 2:00p [facility] Chriss Quinteros I15.0 Renovascular Medicine Barbara Romero M.D.,FACP hypertension [address] Z23 Encounter for immunization Office Visit 02/06/2017 1:30p [facility] DEBORAH Damon G45.8 Oth transient Of Multi Craft Maintenance Technician cerebral ischemic attacks and related synd I25.10 Athscl heart disease of [place] coronary artery w/o ang pctrs I10 Essential (primary) hypertension E78.5 Hyperlipidemia, unspecified Office Visit 01/31/2017 1:40p [facility] Internal Chriss Quinteros G45.8 Oth transient Medicine Clement Romero M.D.,FACP cerebral Rd ischemic attacks and related synd I10 Essential (primary) hypertension E78.5 Hyperlipidemia, unspecified Office 01/26/2017 Neurohospitalist Javon G45.9 Transient Visit 2:08p David Coleman M.D. cerebral ischemic attack, unspecified I10 Essential (primary) hypertension Z79.02 residential (current) use of antithrombotics/antiplatelets Office Visit 01/26/2017 12:56p [facility] Enoc Figueroa G45.8 Oth transient Assocartemio M.D. cerebral Hospitalists ischemic attacks and related synd E78.5 Hyperlipidemia, unspecified I25.10 Athscl heart disease of [place] coronary artery w/o ang pctrs I10 Essential (primary) hypertension Office 01/25/2017 Neurohospitalist Javon G45.9 Transient Visit 2:03p David Coleman M.D. cerebral ischemic attack, unspecified I10 Essential (primary) hypertension Z79.02 residential (current) use of antithrombotics/antiplatelets Office Visit 01/25/2017 [facility] Roby I63.9 Cerebral 12:55p Assoc,artemio Shaver N.P. infarction, Hospitalists unspecified E78.5 Hyperlipidemia, unspecified I25.10 Athscl heart disease of [place] coronary artery w/o ang pctrs I10 Essential (primary) hypertension Office Visit 01/03/2017 10:30a [facility] Internal Chriss Quinteros I25.10 Athscl heart Medicine Clement Romero M.D.,FACP disease of Rd 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 coronary artery w/o ang pctrs G47.33 Obstructive sleep apnea (adult) (pediatric) Office Visit 08/31/2016 [facility] R42 Dizziness and 11:16a Assoc,pc [place] [facility] Hospitalists Z86.73 Prsnl hx of TIA (TIA), and cereb infrc w/o resid deficits I25.10 Athscl heart disease of [place] coronary artery w/o ang pctrs G47.33 Obstructive sleep apnea (adult) (pediatric) Office Visit 08/22/2016 [place] Qutaray S. I35.0 Nonrheumatic 3:00p Cardiology Brissa Hahn aortic (valve) stenosis I10 Essential (primary) hypertension I25.10 Athscl heart disease of [place] coronary artery w/o ang pctrs I34.0 Nonrheumatic mitral (valve) insufficiency Office Visit 02/02/2016 2:00p [place] [facility] Romietaybsugey S. I10 Essential Brissa Hahn (primary) hypertension I25.10 Athscl heart disease of [place] coronary artery w/o ang pctrs I34.0 Nonrheumatic mitral (valve) insufficiency I35.0 Nonrheumatic aortic (valve) stenosis Office Visit 08/16/2015 8:45a Orthopedic Temi Rivera, Z96.652 Presence of left Services Of [place] artificial knee C.M.A. joint Office Visit 06/01/2015 10:45a [place] [facility] Quirino SDana I63.511 Cereb infrc d/t Services Of Katerina Giles M.D. unsp occls or stenos of right mid cereb art Office Visit 05/10/2015 10:45a Orthopedic Temi Rivera, Z47.1 Aftercare Services Of Brissa following joint C.M.A. replacement surgery Z96.652 Presence of left artificial knee joint Office Visit 02/03/2015 Neurohospitalist Quirino Rodriguez 434.91 Occlusion 10:00a Clinic Brissa Giles Cerebral Artery Unspec W/ Cerebral Infarc Office Visit 10/28/2014 Neurohospitalist Beck Milner 434.91 Occlusion 9:47a Clinic MD Cerebral Artery Unspec W/ Cerebral Infarc Office Visit 10/11/2014 Neurohospitalist Quirino Rodriguez 434.91 Occlusion 3:00p Clinic Brissa Giles Cerebral Artery Unspec W/ Cerebral Infarc 435.9 TIA Ischemia Cerebral Transient Unspec 414.01 Coronary Atherosclerosis [place] Office Visit 10/11/2014 7:08p [facility] Rosalee 434.91 Occlusion Assoc,artemio Gandara M.D. Cerebral Artery Hospitalists Unspec W/ Cerebral Infarc 401.9 Hypertension Unspec 244.9 Hypothyroidism Other Unspec Office Visit 10/10/2014 7:07p [facility] Loc 434.91 Occlusion Assoc,artemio Cordova M.D. Cerebral Artery Hospitalists Unspec W/ Cerebral Infarc 401.9 Hypertension Unspec 244.9 Hypothyroidism Other Unspec 272.4 Hyperlipidemia Other Unspec Office Visit 10/10/2014 Neurohospitalist Quirino Rodriguez 434.91 Occlusion 2:34p Clinic Brissa Giles Cerebral Artery Unspec W/ Cerebral Infarc 435.9 TIA Ischemia Cerebral Transient Unspec Office Visit 10/09/2014 7:06p [facility] Enoc Figueroa 434.91 Occlusion Assocartemio M.D. Cerebral Artery Hospitalists Unspec W/ Cerebral Infarc 401.9 Hypertension Unspec 244.9 Hypothyroidism Other Unspec 272.4 Hyperlipidemia Other Unspec Office Visit 06/05/2014 [place] Romietaray SDana 414.01 Coronary 3:20p Cardiology Brissa Hahn Atherosclerosis [place] V45.82 Percutaneous Transluminal Coronary Angioplas Postsurg Status 401.1 Hypertension Benign 424.0 Mitral Valve Disorder Office Visit 05/04/2014 11:30a Orthopedic Temi 715.96 Osteoarthrosis Services Of Brissa Rivera Unspec Genlzd Or C.M.A. Localized Lower Leg 719.46 Pain Joint Lower Leg Office Visit 02/10/2014 Sam Babin S. 414.01 Coronary 5:00p Santa Hahn M.D. Atherosclerosis [place] V45.82 Percutaneous Transluminal Coronary Angioplas Postsurg Status [...] 414.01 Coronary 1:20p Santa Hahn M.D. Atherosclerosis [place] 424.0 Mitral Valve Disorder 424.1 Aortic Valve Disorder V45.82 Percutaneous Transluminal Coronary Angioplas Postsurg Status Office Visit 01/22/2014 Sam Babin S. 414.01 Coronary 11:30a Santa Hahn M.D. Atherosclerosis [place] 424.0 Mitral Valve Disorder 424.1 Aortic Valve Disorder V45.82 Percutaneous Transluminal Coronary Angioplas Postsurg Status Office Visit 11/14/2013 Sam Babin S. 414.01 Coronary 8:20a Santa Hahn M.D. 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 414.01 Coronary 3:40p Santa Hahn M.D. Atherosclerosis [place] 424.0 Mitral Valve Disorder 397.0 Tricuspid Valve Disease 424.1 Aortic Valve Disorder 785.2 Murmur Cardiac Undiagnosed Office Visit 07/18/2013 11:30a Sam Babin S. 786.50 Pain Chest Brissa Hahn Unspec 786.05 Shortness Of Breath 794.39 Cardiovascular Study Other Abnormal Office Visit 07/04/2013 [place] Olaf S. 414.01 Coronary 4:00p Cardiology Brissa Hahn Atherosclerosis [place] 786.50 Pain Chest Unspec 424.0 Mitral Valve Disorder 397.0 Tricuspid Valve Disease 424.1 Aortic Valve Disorder Office Visit 07/02/2013 9:30a [facility] Olaf Rodriguez 786.50 Pain Chest Brissa Hahn Unspec 414.9 Ischemic Heart Disease Chronic Unspec Office Visit 06/23/2013 [place] Olaf S. 414.01 Coronary 1:40p Cardiology Brissa Hahn Atherosclerosis [place] 786.50 Pain Chest Unspec 424.0 Mitral Valve Disorder 397.0 Tricuspid Valve Disease 424.1 Aortic Valve Disorder 785.2 Murmur Cardiac Undiagnosed 782.3 Edema Office Visit 02/26/2013 [place] Olaf Rodriguez 414.01 Coronary 3:00p Santa Hahn M.D. Atherosclerosis [place] 412 Myocardial Infarction Old 424.1 Aortic Valve Disorder 424.0 Mitral Valve Disorder Office Visit 01/21/2013 9:15a Orthopedic Neymar Marrero 996.78 Complication Due Services Of Brissa To Internal C.MDanaADana Orthopedic Device Implant Other 715.96 Osteoarthrosis Unspec Genlzd Or Localized Lower Leg V43.65 Knee Replacement By Other Means 996.77 Complication Due To Internal Joint Prosthesis Office Visit 01/07/2013 Leslee Marrero, 996.78 Complication Due To 9:30a Services Of Oswald Brumfield Internal Orthopedic Device Implant Other Office Visit 08/17/2012 [facility] Patricia Whelan, 276.8 Hypopotassemia 1:23p Assoc,pc N.P. Hospitalists 780.97 Altered Mental Status Office Visit 06/08/2012 11:51a [facility] Enoc Figueroa, 786.51 Pain Precordial Assoc,artemio Brumfield Hospitalists 401.9 Hypertension Unspec 272.2 Hyperlipidemia Mixed 285.9 Anemia Unspec Office Visit 06/07/2012 [place] Olaf S. 414.01 Coronary 2:00p Santa Hahn M.D. Atherosclerosis [place] 401.1 Hypertension Benign 434.11 Cerebral Embolism W/ Cerebral Infarc Office Visit 06/07/2012 11:50a [facility] Cassidy 786.51 Pain Precordial Assoc,artemio Moeller D.O. Hospitalists 401.9 Hypertension Unspec 272.2 Hyperlipidemia Mixed 285.9 Anemia Unspec Office Visit 05/02/2012 8:30a [facility] Internal Shauna Saira, 836.0 Dislocation Knee Medicine N.P. Tear Of Medial Cartilage Or Meniscus Curren 786.03 Apnea 414.01 Coronary Atherosclerosis [place] 401.1 Hypertension Benign 434.11 Cerebral Embolism W/ Cerebral Infarc 272.2 Hyperlipidemia Mixed V72.84 Examination Preoperative Unspec 244.9 Hypothyroidism Other Unspec Office Visit 04/29/2012 8:30a Orthopedic Neymar Marrero, 836.0 Dislocation Knee Services Of [facility] Tear Of Medial C.M.A. Cartilage Or Meniscus Curr Office Visit 04/16/2012 2:30p Orthopedic Neymar Marrero, 715.36 Osteoarthrosis Services Of Brissa Localzd Not Spec C.M.A. Prime Or 2Ndy Lower Leg 727.49 Cyst Synovial Other 719.06 Effusion Joint Lower Leg Office Visit 03/27/2012 3:40p [facility] Internal Yash Guerrero 729.5 Pain In Limb Medicine Brissa Nevarez Office Visit 03/22/2012 10:20a [facility] Internal Yash Guerrero 719.46 Pain Joint Medicine Brissa Nevarez Lower Leg 729.5 Pain In Limb Office Visit 10/19/2011 [facility] Oscar Guerrero 787.91 Diarrhea 10:20a Angelo Nevarez M.D. Office Visit 10/06/2011 Sam Babin S. 414.01 Coronary 10:40a Cardiology Mita Hahn M.D. [place] 401.1 Hypertension Benign 272.4 Hyperlipidemia Other Unspec 424.0 Mitral Valve Disorder 424.1 Aortic Valve Disorder Office Visit 09/20/2011 2:20p [facility] Oscar Nevarez 787.91 Diarrhea Medicine Brissa 434.11 Cerebral Embolism W/ Cerebral Infarc Office Visit 09/04/2011 Sam Babin S. 401.1 Hypertension 2:30p Cardiology Brissa Hahn Benign 414.01 Coronary Atherosclerosis [place] 794.31 Electrocardiogram (ECG) (EKG) Abnormal Office Visit 07/21/2011 Sam Babin SDana 401.1 Hypertension 10:00a Cardiology Brissa Hahn Benign 272.2 Hyperlipidemia Mixed 414.01 Coronary Atherosclerosis [place] 794.31 Electrocardiogram (ECG) (EKG) Abnormal 424.0 Mitral Valve Disorder 424.1 Aortic Valve Disorder 434.11 Cerebral Embolism W/ Cerebral Infarc Office Visit 07/13/2011 10:00a [employer] Maintenance Technician Internal Yash EDana 434.11 Cerebral Medicine Brissa Nevarez Embolism W/ Cerebral Infarc 401.1 Hypertension Benign 272.2 Hyperlipidemia Mixed 414.01 Coronary Atherosclerosis [place] Office Visit 01/04/2011 10:00a DO Not Use Multi Craft Maintenance Technician Yash E. V70.0 Examination AT Mynor Nevarez M.D. General Medical Routine AT Health Care Facility 401.1 Hypertension Benign 414.01 Coronary Atherosclerosis [place] 272.0 Hypercholesterolemia Pure 790.21 Impaired Fasting Glucose 244.9 Hypothyroidism Other Unspec 724.1 Pain Thoracic Spine 530.81 Esophageal Reflux Office Visit 07/06/2010 10:20a DO Not Use [employer] Maintenance Technician Yash E. 401.1 Hypertension Benign AT Mynor Nevarez M.D. 414.01 Coronary Atherosclerosis [place] 272.0 Hypercholesterolemia Pure 790.21 Impaired Fasting Glucose Office Visit 02/16/2010 3:00p DO Not Use [employer] Maintenance Technician Yash E. 401.1 Hypertension Benign AT Mynor Nevarez M.D. 272.2 Hyperlipidemia Mixed 414.01 Coronary Atherosclerosis [place] 244.9 Hypothyroidism Other Unspec Office Visit 02/10/2010 11:00a DO Not Use [employer] Maintenance Technician Yash E. V72.81 Examination AT Mynor Nevarez M.D. Preoperative Cardiovascular 401.1 Hypertension Benign 272.2 Hyperlipidemia Mixed 414.01 Coronary Atherosclerosis [place] 244.9 Hypothyroidism Other Unspec Office Visit 05/04/2009 2:00p DO Not Use [employer] Maintenance Technician Yash E. 401.1 Hypertension Benign AT Mynor Nevarez M.D. 272.2 Hyperlipidemia Mixed 414.01 Coronary Atherosclerosis [place] 244.9 Hypothyroidism Other Unspec 311 Depressive Disorder Not Elsewhere Spec 787.20 Dysphagia, Unspecified Office Visit 03/30/2008 Sam Guerrero 465.9 URI Upper Respiratory 1:45p Assoc AT Brissa Nevarez Infections Acute Unspec [facility] Office Visit 10/10/2007 Sam Berrios EDana 272.0 Hypercholesterolemia Pure 10:00a Assoc AT [facility] 414.01 Coronary Atherosclerosis [place] 401.1 Hypertension Benign [facility] 272.2 Hyperlipidemia Mixed Assoc AT [facility] 244.9 Hypothyroidism Other Unspec 796.2 Blood Pressure Reading Elevated W/O Hypertension 414.01 Coronary Atherosclerosis [place] Office Visit 03/25/2007 [facility] Yash E. 272.0 Hypercholesterolemia Pure 2:45p Assoc AT [facility] 414.01 Coronary Atherosclerosis [place] V04.81 Need For Prophylactic Vaccination & Inoculation/Influenza Plan of Treatment Future Appointment(s):10/23/2018 11:20 am - ROBERTH Crow at [facility] Internal Ocynfnbt91/13/2019 11:00 am - Mulu Blackwell NP at [facility] Xjasysuqlvlmvzty89/09/ 2019 10:15 am - Javon Coleman M.D. at [place] [facility]09/25 - ROBERTH CrowZ00.00 Encounter for general adult medical examination without abnoComments:Medicare:Depression screen: negativeADL screen : negativeAdvance directives: HCP discussed, done alreadyCognitive impairment screen: negative Reviewed Medicare Wellness Questionnaire with pt. Reviewed [facility] DM/HM form. VACCINES:Flu shot recommended every year in the fallTetanus : over 10 years ago, booster today Shingles vaccine: recommended at age 60Follow up:4 weeks for HTNI25.10 Atherosclerotic heart disease of [place] coronary artery withComments:Needs to have good control of cholesterol and BPE78.5 Hyperlipidemia, unspecifiedComments:Please continue on the [id number] Essential (primary) hypertensionNew Medication:Chlorthalidone 25 mg - 1 by mouth every dayLisinopril 20 mg - 1 tab po q dayComments:Please start on the diuretic (clopidogrel) and on 20 mg/day lisinopril, take these in the mornings and continue on Atenol 50 mg in the eveningContinue to monitor your blood pressure. If you find your readings are consistently higher than 140/ 90, or lower that 110 systolic please give the office a call.G47.00 Insomnia, unspecifiedComments:Avoid coffee, tea, coke, chocolate and other foods that have caffeine, alcohol and smoking from midafternoon on.Stop watching TV an hour before you go to bed.You may take OTC melatonin at bed time orone glass of warn milk.A warm shower before sleep may help to relax and fall asleep. May take melatonin or drink a cup of milk at night to reset your biological clock.Z23 Encounter for immunizationNew Medication:Shingrix 50 mcg/0.5ML - 2 doses 3 month apartComments:Tdap:You received a Tetanus immunization today. Your arm may be sore for a few days. This is good for 10 years. It also protects you from getting Pertussis, (whooping cough). Shingles vaccine: There is a new shingles vaccine called Shingrix. SHINGRIX is a vaccine indicated for prevention of herpes zoster (shingles) in adults aged 50 years and older and in immunocompromised individuals.This vaccine is a 2 tier vaccine.I sent order for this vaccine to your pharmacy.
--- NOTE | 2018-10-12 13:20 | ED ---
Abdominal Pain/Male - HPI Summary HPI Summary: Patient is an 83 year old M presenting to [facility] accompanied by with a CC of diarrhea described as "brown water" for 4 weeks. The patient rates the pain 0 /10 in severity. Symptoms aggravated by nothing. Symptoms alleviated by nothing. Patient reports gas pain. Patient also reports swelling in the bilateral lower extremities that waxes and wanes, limited recent walking due to plantar fasciitis. Patient denies N/V. Patient had treated Sx with fluoxetine 10 mg and activated charcoal prior to arrival with no relief. Patient has hx of strokes, last one being in 2013. 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 Patient reports using "self - medication with imagery". Recently, patient was seen by neurologist, Dr. Coleman. Dr. Coleman advised the patient to take activated charcoal for diarrhea, and prescribed patient with an anti-depressant. Patient had a "stressful Sunday" after which he had been "unable to erase the memory." The patient spoke with a nurse from Dr. Berumen's office who told the patient that the stress caused from Sunday may be contributing to diarrhea. Patient has been refered to a psychiatrist, but according to the patient the psychiatrist was "unable to help me". Patient has had no previous illnesses over the last couple months that would warrant the use of antibiotics. - History of Current Complaint Chief Complaint: EDNauseaVomitDiarrh Stated Complaint: DIARRHEA FOR 4 WKS PER PT Time Seen by Provider: 10/12/18 12:32 Hx Obtained From: Patient Onset/Duration: Gradual Onset, Lasting Weeks - 4 wks, Still Present Timing: Constant, Lasting Weeks - 4 wks Severity Currently: None Pain Intensity: 0 Pain Scale Used: 0-10 Numeric Aggravating Factor(s): Nothing Alleviating Factor(s): Nothing Associated Signs And Symptoms: Positive: Diarrhea, Other - Gas pain, bilateral lower extremity swelling. Negative: Nausea, Vomiting - Allergies/Home Medications Allergies/Adverse Reactions: Allergies Allergy/AdvReac Type Severity Reaction Status Date / Time cephalexin Allergy Unknown Verified 10/12/18 12:27 Reaction Details morphine AdvReac Hallucinati Verified 10/12/18 12:27 ons PMH/Surg Hx/FS Hx/Imm Hx Previously Healthy: No Endocrine/Hematology History: Reports: Hx Anticoagulant Therapy - plavix and ASA , Hx Thyroid Disease, Hx Anemia - SLIGHT Denies: Hx Diabetes Cardiovascular History: Reports: Hx Angina, Hx Coronary Artery Disease, Hx Hypercholesterolemia, Hx Hypertension, Hx Myocardial Infarction Denies: Hx Congestive Heart Failure, Hx Pacemaker/ICD, Other Cardiovascular Problems/Disorders Respiratory History: Reports: Hx Sleep Apnea - has CPAP Denies: Hx Asthma, Hx Chronic Obstructive Pulmonary Disease (COPD), Other Respiratory Problems/Disorders GI History: Reports: Hx Gastroesophageal Reflux Disease, Hx Ulcer - Gastric, Other GI Disorders History: Reports: Other Problems/Disorders - ENLARGE PROSTATE Denies: Hx Renal Disease Musculoskeletal History: Reports: Hx Arthritis - LEFT KNEE, Hx Osteoporosis - LEFT KNEE, Other Musculoskeletal History - knee surgery Sensory History: Reports: Hx Cataracts, Hx Contacts or Glasses, Hx Hearing Aid, Other Sensory Impairments - left visual cut after CVA Opthamlomology History: Reports: Hx Cataracts, Hx Contacts or Glasses, Other Sensory Impairments - left visual cut after CVA Neurological History: Reports: Hx CVA - stroke 2011 and 10/2014 - Lt deficits, Other Neuro Impairments/Disorders - CVA x2 Denies: Hx Dementia, Hx Seizures Psychiatric History: Reports: Hx Anxiety - ONCE IN A WHILE Denies: Hx Panic Disorder, Hx Substance Abuse - Surgical History Surgery Procedure, Year, and Place: RIGHT ENDAREDECTOMY; CARDIAC STENTS PLACED; RIGHT SHOULDER ROTATOR CUFF REPAIR; PARTIAL THYROIDECTOMY; LEFT KNEE REPLACEMENT ; RIGHT BUNIONECTOMY; RIGHT KNEE ARTHROSCOPE; Hx Anesthesia Reactions: No Infectious Disease History: No Infectious Disease History: Reports: Hx Shingles - 30 years ago Denies: Hx Clostridium Difficile, Hx Hepatitis, Hx Human Immunodeficiency Virus (HIV), Hx of Known/Suspected MRSA, Hx Tuberculosis, Hx Known/Suspected VRE , Hx Known/Suspected VRSA, History Other Infectious Disease, Traveled Outside the [place] in Last 30 Days - Family History Known Family History: Positive: Cardiac Disease - Social History Alcohol Use: None Hx Substance Use: No Substance Use Type: Reports: None Hx Tobacco Use: Yes Smoking Status (MU): Former Smoker Type: Cigarettes Amount Used/How Often: 3 packs a day Have You Smoked in the Last Year: No Review of Systems Positive: Diarrhea, Other - gas pain. Negative: Vomiting, Nausea Positive: Edema - bilateral lower extremity All Other Systems Reviewed And Are Negative: Yes Physical Exam - Summary Physical Exam Summary: Appearance: The patient is well-nourished in no acute distress and in no acute pain. Skin: The skin is tense HEENT: The head is normocephalic and atraumatic. The pupils are equal and reactive. The conjunctivae are clear and without drainage. Nares are patent and without drainage. Mouth reveals dry mucous membranes and the throat is without erythema and exudate. The external ears are intact. The ear canals are patent and without drainage. The tympanic membranes are intact. Neck: The neck is supple with full range of motion and non-tender. There are no carotid bruits. There is no neck vein distension. Respiratory: Chest is non-tender. Lungs are clear to auscultation and breath sounds are symmetrical and equal. Cardiovascular: Heart is regular rate and rhythm. There is a loud systolic injection murmur. There is mild bipedal edema of the LE Abdomen: The abdomen is soft and non-tender. There are normal bowel sounds heard in all four quadrants and there is no organomegaly palpated. Musculoskeletal: There is no back tenderness noted. There is good capillary refill. There mild bipedal edema of the LE. Neurological: Patient is alert and oriented to person, place and time. The patient has symmetrical motor strength in all four extremities. Cranial nerves are grossly intact. Deep tendon reflexes are symmetrical and equal in all four extremities. Psychiatric: The patient has an appropriate affect and does not exhibit any anxiety or depression. Triage Information Reviewed: Yes Vital Signs On Initial Exam: Initial Vitals Temp Pulse Resp BP Pulse Ox 97.8 F 57 16 160/68 100 10/12/18 12:28 10/12/18 12:28 10/12/18 12:28 10/12/18 12:28 10/12/18 12:28 Vital Signs Reviewed: Yes Diagnostics - Vital Signs Vital Signs Temp Pulse Resp BP Pulse Ox 10/12/18 12:28 97.8 F 57 16 160/68 100 - Laboratory Result Diagrams: 10/12/18 13:21 10/12/18 13:21 Lab Statement: Any lab studies that have been ordered have been reviewed, and results considered in the medical decision making process. Re-Evaluation - Re-Evaluation First Eval Re-Evaluation Time: 15:15 Comment: Patient provided a stool sample. Sample sent for testing Second Eval Re-Evaluation Time: 17:00 Comment: Discussed discharge plan. Patient and are agreeable. Abdominal Pain Male Course/Dx - Course Course Of Treatment: Mr. Black was nontoxic in appearance with stable vital signs. His exam was generally unremarkable aside from looking a little under hydrated. He was hydrated here in the department while labs were checked and found to be normal. His stool was sent for lab also and revealed a strongly positive fecal lactoferrin. I will treat him with Cipro pending culture results. - Diagnoses Provider Diagnoses: Gastroenteritis Discharge - Sign-Out/Discharge Documenting (check all that apply): Patient Departure - discharge Patient Received Moderate/Deep Sedation with Procedure: No - Discharge Plan Condition: Stable Disposition: HOME Prescriptions: Ciprofloxacin TAB* [Cipro Tab*] 500 mg PO BID #20 tab Patient Education Materials: Gastroenteritis (ED) Referrals: Ritesh Sauceda NP [Primary Care Provider] - 3 Days Additional Instructions: Follow up with primary care physician in 3 days. Return to the Emergency Department for any new or worsening symptoms. - Billing Disposition and Condition Condition: STABLE Disposition: Home - Attestation Statements Document Initiated by Scribe: Yes Documenting Scribe: Pamela Mcnulty Provider For Whom Ana María is Documenting (Include Credential): Yakov Holcomb MD Scribe Attestation: I, Pamela Mcnulty, scribed for Yakov Holcomb MD on 10/12/18 at 1853. Scribe Documentation Reviewed: Yes Provider Attestation: The documentation as recorded by the [facility] Tiffany Liu accurately reflects the service I personally performed and the decisions made by me, Yakov Holcomb MD Status of Scribe Document: Viewed
[2018-10-12 13:35] LABS: ABS Eosinophils 0.1 10^3/ul (0-0.6); ABS Lymphocytes 1.3 10^3/ul (1.0-4.8); ABS Monocytes 0.8 10^3/ul (0-0.8); ABS Neutrophils 4.4 10^3/ul (1.5-7.7); Eosinophil % 1.1 %; Hematocrit 39 % (42-52); Lymphocyte % 19.6 %; Mean Corpuscular HGB Conc 34 g/dL (31-36); Mean Corpuscular Hemoglobin 30 pg (27-31); Mean Corpuscular Volume 90 fL (80-94); Mean Platelet Volume 8.4 fL (7.4-10.4); Platelet Count 154 10^3/uL (150-450); Red Blood Count 4.31 10^6 /uL (4.18-5.48); Red Cell Distribution Width 14 % (10.5-15); White Blood Count 6.5 10^3/uL (3.5-10.8)
[2018-10-12 13:46] LABS: Albumin 3.7 g/dL (3.2-5.2); Albumin/Globulin Ratio 1.4 (1-3); BUN/Creatinine Ratio 17.8 (8-20); C Reactive Protein 2.66 mg/L (<8.01); Calcium 8.6 mg/dL (8.6-10.3); EGFR African American 97.8 (>60); EGFR Non-African American 80.8 (>60); Globulin 2.6 g/dL (2-4); Potassium 3.3 mmol/L (3.5-5.0); Total Bilirubin 0.4 mg/dL (0.2-1.0); Total Protein 6.3 g/dL (6.4-8.9)
[2018-10-12 17:25] VITALS: BP 122/87
== END 2018-10-12 17:26 | disposition home or self-care (01) ==
LOC: ED 12:16
DX: K52.9 Noninfective gastroenteritis and colitis, unspecified (principal); I25.10 Atherosclerotic heart disease of native coronary artery without angina pectoris; D64.9 Anemia, unspecified; E07.9 Disorder of thyroid, unspecified; I10 Essential (primary) hypertension; I25.2 Old myocardial infarction; K21.9 Gastro-esophageal reflux disease without esophagitis; Z88.1 Allergy status to other antibiotic agents; Z88.5 Allergy status to narcotic agent; Z79.01 Long term (current) use of anticoagulants; Z79.82 Long term (current) use of aspirin; Z87.891 Personal history of nicotine dependence
CPT/HCPCS: 36415; 80053; 82272; 83605; 83630; 85025; 86140; 87045; 87046; 87077; 87493; 87899; 96360; 96361; 99283

== ENCOUNTER 2019-02-17 22:06 | Emergency (ER) | payer MEDICARE ==
--- NOTE | 2019-02-17 22:15 | ED ---
HPI Chest Pain - HPI Summary HPI Summary: Patient complains of sternal chest pain starting at 6:30 PM I'll walking, resolved with sitting. Second episode of chest pain when he started walking again. Resolved again with sitting. Pain rated at worst 8/10, denies radiation , diaphoresis, N/C. Pain resolved prior to EMS arrival. Patient was given nitroglycerin 1 by EMS and 324 mg ASA. No active chest pain now. Denies shortness of breath, fever, cough, sore throat, and/V/D, abdominal pain, change in urine, change in BM. History of NH 10 years ago with stent placement at [place]. Cardiology doctor Jennifer. Former smoker. History of CVA, HTN, NH. - History of Current Complaint Time Seen by Provider: 02/17/19 22:12 Hx Obtained From: Patient Onset/Duration: Started Hours Ago Timing: Intermittent, Lasting Minutes Initial Severity: Severe Current Severity: None Pain Scale Used: 0-10 Numeric Chest Pain Location: Mid Sternal Chest Pain Radiates: No Character: Pressure/Squeezing Aggravating Factor(s): Exertion Alleviating Factor(s): Rest Associated Signs and Symptoms: Positive: Chest Pain - Additional Pertinent History Primary Care Physician: [id number] - Allergy/Home Medications Allergies/Adverse Reactions: Allergies Allergy/AdvReac Type Severity Reaction Status Date / Time cephalexin Allergy Unknown Verified 02/17/19 22:18 Reaction Details morphine AdvReac Hallucinati Verified 02/17/19 22:18 ons Home Medications: Home Medications FLUoxetine CAP* [PROzac CAP*] 10 mg PO DAILY 02/17/19 [History Confirmed ] Potassium Chlor TAB* [Klor Con ER TAB*] 40 meq PO DAILY 02/17/19 [History Confirmed 02/17/19] PMH/Surg Hx/FS Hx/Imm Hx Endocrine/Hematology History: Reports: Hx Anticoagulant Therapy - plavix and ASA , Hx Thyroid Disease, Hx Anemia - SLIGHT Denies: Hx Diabetes Cardiovascular History: Reports: Hx Angina, Hx Coronary Artery Disease, Hx Hypercholesterolemia, Hx Hypertension, Hx Myocardial Infarction Denies: Hx Congestive Heart Failure, Hx Pacemaker/ICD, Other Cardiovascular Problems/Disorders Respiratory History: Reports: Hx Sleep Apnea - has CPAP Denies: Hx Asthma, Hx Chronic Obstructive Pulmonary Disease (COPD), Other Respiratory Problems/Disorders GI History: Reports: Hx Gastroesophageal Reflux Disease, Hx Ulcer - Gastric, Other GI Disorders History: Reports: Other Problems/Disorders - ENLARGE PROSTATE Denies: Hx Renal Disease Musculoskeletal History: Reports: Hx Arthritis - LEFT KNEE, Hx Osteoporosis - LEFT KNEE, Other Musculoskeletal History - knee surgery Sensory History: Reports: Hx Cataracts, Hx Contacts or Glasses, Hx Hearing Aid, Other Sensory Impairments - left visual cut after CVA Opthamlomology History: Reports: Hx Cataracts, Hx Contacts or Glasses, Other Sensory Impairments - left visual cut after CVA Neurological History: Reports: Hx CVA - stroke 2011 and 10/2014 - Lt deficits, Other Neuro Impairments/Disorders - CVA x2 Denies: Hx Dementia, Hx Seizures Psychiatric History: Reports: Hx Anxiety - ONCE IN A WHILE Denies: Hx Panic Disorder, Hx Substance Abuse - Surgical History Surgery Procedure, Year, and Place: RIGHT ENDAREDECTOMY; CARDIAC STENTS PLACED; RIGHT SHOULDER ROTATOR CUFF REPAIR; PARTIAL THYROIDECTOMY; LEFT KNEE REPLACEMENT ; RIGHT BUNIONECTOMY; RIGHT KNEE ARTHROSCOPE; Hx Anesthesia Reactions: No Infectious Disease History: Reports: Hx Shingles - 30 years ago Denies: Hx Clostridium Difficile, Hx Hepatitis, Hx Human Immunodeficiency Virus (HIV), Hx of Known/Suspected MRSA, Hx Tuberculosis, Hx Known/Suspected VRE , Hx Known/Suspected VRSA, History Other Infectious Disease - Family History Known Family History: Positive: Cardiac Disease - Social History Alcohol Use: None Hx Substance Use: No Substance Use Type: Reports: None Hx Tobacco Use: Yes Smoking Status (MU): Former Smoker Type: Cigarettes Amount Used/How Often: 3 packs a day Have You Smoked in the Last Year: No Review of Systems Constitutional: Negative Eyes: Negative ENT: Negative Positive: Chest Pain Respiratory: Negative Gastrointestinal: Negative Genitourinary: Negative Musculoskeletal: Negative Skin: Negative Neurological: Negative Psychological: Normal All Other Systems Reviewed And Are Negative: Yes Physical Exam - Summary Physical Exam Summary: Chest pain not reproducible. RRR. Abdomen soft nontender. Lung sounds clear to auscultation bilaterally. No peripheral edema. Triage Information Reviewed: Yes Vital Signs Reviewed: Yes Appearance: Positive: Well-Appearing Skin: Positive: Warm Head/Face: Positive: Normal Head/Face Inspection Eyes: Positive: Normal Neck: Positive: Supple Respiratory/Lung Sounds: Positive: Clear to Auscultation Cardiovascular: Positive: Normal Abdomen Description: Positive: Nontender Musculoskeletal: Positive: Normal Neurological: Positive: Normal Psychiatric: Positive: Normal AVPU Assessment: Alert - Lorena Coma Scale Best Eye Response: 4 - Spontaneous Best Motor Response: 6 - Obeys Commands Best Verbal Response: 5 - Oriented Coma Scale Total: 15 Diagnostics - Laboratory Result Diagrams: 02/17/19 22:40 02/17/19 22:40 Lab Statement: Any lab studies that have been ordered have been reviewed, and results considered in the medical decision making process. Chest Pain Course/Dx - Course Course Of Treatment: Patient complains of sternal chest pain starting at 6:30 PM I'll walking, resolved with sitting. Second episode of chest pain when he started walking again. Resolved again with sitting. Pain rated at worst 8/10, denies radiation, diaphoresis, N/C. Pain resolved prior to EMS arrival. Patient was given nitroglycerin 1 by EMS and 324 mg ASA. No active chest pain now. Denies shortness of breath, fever, cough, sore throat, and/V/D, abdominal pain, change in urine, change in BM. History of NH 10 years ago with stent placement at [place]. Cardiology doctor Jennifer. Former smoker. History of CVA, HTN, NH. Vital signs within normal limits. Labs unremarkable. Serial troponins negative. EKG sinus bradycardia, same as prior. Chest x-ray unremarkable. Discussed patient with hospitalist Dr. Stokes who recommended discharge home and follow-up with filer repairer Dr. Hahn. Patient states he will follow up later today with his filer repairer. - Diagnoses Provider Diagnoses: Chest pain Discharge ED - Sign-Out/Discharge Documenting (check all that apply): Patient Departure Patient Received Moderate/Deep Sedation with Procedure: No - Discharge Plan Condition: Stable Disposition: HOME Patient Education Materials: Angina (ED), Chest Pain (ED) Referrals: Ritesh Sauceda NP [Primary Care Provider] - Olaf Hahn MD [Medical Doctor] - Additional Instructions: Follow-up with your filer repairer Dr. Hahn later this morning for further evaluation of exertional chest pain. Return to the ED for any new or worsening symptoms. - Billing Disposition and Condition Condition: STABLE Disposition: Home
--- OUTSIDE RECORDS SUMMARY | 2019-02-17 22:24 | XMS REPORT | Continuity of Care Document ---
:1935 External Reference #:[id number] Author Name Olaf Hahn M.D. 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 Onset: 2011 cerebral arteries Mixed hyperlipidemia Yash Nevarez M.D. Onset: 07/13/2011 Coronary arteriosclerosis Yash Nevarez M.D. Onset: 07/13/2011 Hyperlipidemia Olaf Hahn M.D. Onset: 10/06/2011 Hypothyroidism Shauna Chávez, N.PDana Onset: 05/02/2012 Aneurysm of artery of lower extremity Shauna Chávez, N.PDana Onset: 05/16/2012 Note: very mild fusiform shaped [...] Mixed anxiety and depressive disorder Chriss Romero M.D.,[facility] Onset: 07/2016 Note: he does not see any psychiatrist at the moment. History of cerebrovascular accident Javon Coleman M.D. Onset: 02/12/2017 without residual deficits Cerebral ischemia Javon Coleman M.D. 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 Onset: 02/08/2018 Dysphagia Mulu Blackwell NP Onset: 04/03/2018 Note: 09/19/2016 Transient cerebral ischemia Javon Coleman M.D. Onset: 10/10/2018 Insomnia Javon Coelman M.D. Onset: 10/10/2018 Social History Type Date Description Comments Sex Unknown Cigarette Use Quit - Age 40 3 PPD 24 years ETOH Use 02/16/2017 Denies alcohol use Tobacco Use Start: Unknown End: Patient is a former patient quit when Unknown smoker he was 40 yrs old, smoked 3-4 ppd at most smoked for approx 20 yrs. Recreational Drug Use Denies Drug Use Smoking Status Reviewed: 02/11/19 Patient is a former patient quit when smoker he was 40 yrs old, smoked 3-4 ppd at most smoked for approx 20 yrs. Exercise Type/Frequency Exercises rarely Allergies, Adverse Reactions, Alerts Active Allergies Reaction Severity Comments Date Narcotic after surgery, confusion, hypotention 11/14/2013 Morphine Liposomal 12/27/2016 Cephalexin nausea, candidiasis 01/03/2017 Melatonin diarrhea 02/11/2019 Inactive Allergies NKDA 11/14/2013 Medications Active Medications SIG Qnty Indications Ordering Date Provider Amlodipine Besylate 1 by mouth every 30tabs Ritesh Sauceda, 01/29/2019 5mg day [facility] [employer] Tablets Lisinopril 1 by mouth every 30tabs I10 Ritesh Rojok, 01/29/2019 10mg Tablets day [employer] Fluoxetine HCL (PMDD) 1 capsule by 30caps F33.1 Roby Shaver, 2018 mouth daily N.P. 10mg Capsules Trazodone HCL take 2 tablet by 180tabs G47.00 Ritesh Rojok, 05/01/2018 50mg mouth every [employer] Tablets night at bedtime as needed insomnia Levothyroxine Sodium take 1 tablet by 90tabs Ritesh Rojok, 11/08/2017 mouth every day [employer] 125mcg Tablets Cpap Mask And Supplies cpap supplies - R06.81 Chriss Quinteros 08/16/2017 [facility].D[facility] Device cushion, tubing, filters, for sleep apnea R06.02 Atenolol take 1 tablet by 90tabs I10 Ritesh Sauceda, [facility] 02/16/2017 50mg Tablets mouth every day Z86.73 Pantoprazole Sodium 1 by mouth every [facility]tabs [facility] Finasteride 1 by mouth every Unknown 5mg Tablets day Flomax 1 by mouth every Unknown 0.4mg Capsules day Chlorthalidone 1 by mouth every Unknown 25mg Tablets day Atorvastatin Calcium take 1 tablet by 90tabs E78.5 Ritesh Sauceda, [facility] 80mg mouth every day Tablets G45.9 Z86.73 History Medications Potassium Chloride ER Take 1 Tablet By 90tabs I10 Ritesh Sauceda [facility] 01/29 - Mouth Every Day 02/10/2019 20Meq Tablets ER Pantoprazole Sodium take one tablet 90tabs K21.9 Ritesh Sauceda [facility] 2018 - by mouth once 02/10/[address] daily before breakfast Potassium Chloride ER Take 1 Tablet By 30tabs Ritesh Sauceda, [facility] 2018 - Mouth Every Day 01/29/2019 20Meq Tablets ER Aspir-Low 1 by mouth every 30tabs Roby Shaver, 10/11/2018 - 81mg Tablets day N.P. 01/29/2019 DR Fluoxetine HCL Take 1 by mouth 30tabs F33.1 Javon Jared, 10/10/2018 - 10mg once a day M.DDana 10/11/2018 Tablets Pantoprazole Sodium take one tablet 90tabs K21.9 Ritesh Sauceda, [facility] 2018 - by mouth once 12/01/[address] daily before breakfast Chlorthalidone 1 by mouth every 90tabs I10 Ritesh Sauceda, [facility] 09/25/2018 - 25mg day Unknown Tablets Lisinopril 1 tab by mouth 90tabs I10 Ritesh Sauceda, [facility] 09/25/2018 - 20mg Tablets every day 01/29/2019 Shingrix 2 doses 3 month 2units Z23 Ritesh Sauceda [facility] 09/25/2018 - 50mcg/0.5ML apart Unknown Suspension Rec Tamsulosin HCL Take 1 Capsule 90caps Ritesh Sauceda, [facility] 09/11/2018 - 0.4mg By Mouth AT 12/01/2018 Capsules Bedtime Medications Administered in Office Medication SIG Qnty Indications Ordering Provider Date PPD Injection Nurse Visit Frank 12/14/2017 Depomedrol 80MG Neymar Marrero M.D. 04/16/2012 Injection Immunizations CPT Code Status Date Vaccine Reaction Lot # [id number] Given 09/25/2018 Tdap - shot tolerated well, [id number] Tetanus/Diptheria/Acellula no immediate reaction. r Pertussis 95943 Given 02/28/2018 Fluzone High Dose 63349 Given 10/16/2017 Zoster (Shingles) Vaccine (HZV), Recombinant, Subunit, Adjuvanted 59310 Given 02/07/2017 Influenza Virus Vaccine, [id number] Quadrivalent, Split, Preservative Free 34595 Given 02/07/2017 Pneumococcal Conjugate pt tolerated well [id number] Vaccine 13 Valent For Intramuscular Use Q2037 Given 03/09/2012 Fluvirin Im 3Yrs And Older Q2038 Given 02/17/2011 Fluzone Vaccine [id number] 42660 Given 03/25/2010 Influenza Virus 3Yrs & [id number] Over 13286 Given 03/25/2007 Influenza Virus 3Yrs & Over 32986 Given 03/25/2007 Influenza Virus 3Yrs & Over 02477 Given 10/12/2002 Td (History By Patient) 21539 Given 11/11/2001 Pneumovax (History By Patient) Vital Signs Date Vital Result Comment 02/11/2019 10:53am Height 66 inches 5'6" Weight 188.00 lb with shoes Heart Rate 62 /min radial, regular BP Systolic Sitting 138 mmHg LA, reg cuff BP Diastolic Sitting 66 mmHg LA, reg cuff BP Systolic Standing 142 mmHg LA, reg cuff BP Diastolic Standing 62 mmHg LA, reg cuff BMI (Body Mass Index) 30.3 kg/m2 Ejection Fraction 50%-55% echo 02/05/19 01/29/2019 8:19am Height 66 inches 5'6" Weight 187.38 lb Heart Rate 54 /min BP Systolic 103 mmHg BP Diastolic 56 mmHg Body Temperature 97.3 F O2 % BldC Oximetry 97 % BMI (Body Mass Index) 30.2 kg/m2 Results Test Date Facility Test Result H/L Range Note Basic Metabolic 01/29/2019 [facility] Sodium 139 mmol/L Normal 135-145 Panel [address] [place] [address] [phone] Potassium 3.6 mmol/L Normal 3.5-5.0 Chloride 100 mmol/L Low 101-111 Co2 Carbon Dioxide 37 mmol/L High 22-32 Anion Gap 2 mmol/L Normal 2-11 Glucose 99 mg/dL Normal 70-100 Blood Urea Nitrogen 26 mg/dL High 6-24 Creatinine 1.03 mg/dL Normal 0.67-1.17 BUN/Creatinine Ratio 25.2 High 8-20 Calcium 9.3 mg/dL Normal 8.6-10.3 Egfr Non- 69.1 >60 Egfr 83.7 >60 1 Laboratory test 12/19/2018 [facility] Potassium 3.3 mmol/L Low 3.5-5.[address] [place] [address] [phone] Magnesium 1.9 mg/dL Normal 1.9-2.7 Basic Metabolic 12/10/2018 [facility] Sodium 141 mmol/L Normal 135-145 Panel [address] [place] [address] [phone] Potassium 3.1 mmol/L Low 3.5-5.0 Chloride 101 mmol/L Normal 101-111 Co2 Carbon Dioxide 36 mmol/L High 22-32 Anion Gap 4 mmol/L Normal 2-11 Glucose 98 mg/dL Normal 70-100 Blood Urea Nitrogen 30 mg/dL High 6-24 Creatinine 0.97 mg/dL Normal 0.67-1.17 BUN/Creatinine Ratio 30.9 High 8-20 Calcium 9.2 mg/dL Normal 8.6-10.3 Egfr Non- 74.1 >60 Egfr 89.7 >60 2 Laboratory test 11/07/2018 [facility] C Difficile PCR SEE RESULT 3, [address] [place] [address] [phone] Cryptosporidium And 11/07/2018 [facility] Cryptosporidium Negative 5 Giardia Ag [address] Ag, [place] [address] [phone] Giardia Antigen, Feces Negative 6 Comp Metabolic 11/06/2018 [facility] Sodium 141 mmol/L Normal 135-[address] [place] [address] [phone] Potassium 3.2 mmol/L Low 3.5-5.0 Chloride 101 mmol/L Normal 101-111 Co2 Carbon Dioxide 33 mmol/L High 22-32 Anion Gap 7 mmol/L Normal 2-11 Glucose 102 mg/dL High 70-100 Blood Urea Nitrogen 18 mg/dL Normal 6-24 Creatinine 1.13 mg/dL Normal 0.67-1.17 BUN/Creatinine Ratio 15.9 Normal 8-20 Calcium 9.5 mg/dL Normal 8.6-10.3 Total Protein 6.7 g/dL Normal 6.4-8.9 Albumin 4.1 g/dL Normal 3.2-5.2 Globulin 2.6 g/dL Normal 2-4 Albumin/Globulin Ratio 1.6 Normal 1-3 Total Bilirubin 0.60 mg/dL Normal 0.2-1.0 Alkaline Phosphatase 59 U/L Normal 34-104 Alt 27 U/L Normal 7-52 Ast 28 U/L Normal 13-39 Egfr Non- 62.1 >60 Egfr 75.2 >60 7 Laboratory test 11/06/2018 [facility] C Reactive < 1.00 Normal <8.[address] Protein mg/[place] [address] [phone] CBC Auto Diff 11/06/2018 [facility] White Blood 6.8 Normal 3.5 -10.[address] Count 10^3/[place] [address] [phone] Red Blood Count 4.65 10^6/uL Normal 4.18-5.48 Hemoglobin 14.0 g/dL Normal 14.0-18.0 Hematocrit 41 % Low 42-52 Mean Corpuscular Volume 89 fL Normal 80-94 Mean Corpuscular Hemoglobin 30 pg Normal 27-31 Mean Corpuscular HGB Conc 34 g/dL Normal 31-36 Red Cell Distribution Width 13 % Normal 10.5-15 Platelet Count 182 10^3/uL Normal 150-450 Mean Platelet Volume 9.1 fL Normal 7.4-10.4 Abs Neutrophils 4.7 10^3/uL Normal 1.5-7.7 Abs Lymphocytes 1.3 10^3/uL Normal 1.0-4.8 Abs Monocytes 0.7 10^3/uL Normal 0-0.8 Abs Eosinophils 0.1 10^3/uL Normal 0-0.6 Abs Basophils 0.0 10^3/uL Normal 0-0.2 Abs Nucleated RBC 0.0 10^3/uL Granulocyte % 69.2 % Lymphocyte % 19.1 % Monocyte % 10.3 % Eosinophil % 1.2 % Basophil % 0.2 % Nucleated Red Blood Cells % 0.1 Laboratory test 10/12/2018 [facility] Lactic Acid 1.0 mmol/L Normal 0.5-2.0 [address] [place] [address] [phone] CBC Auto Diff 10/12/2018 [facility] White Blood 6.5 10^3/uL Normal 3.5-10.[address] [place] [address] [phone] Red Blood Count 4.31 10^6/uL Normal 4.18-5.48 Hemoglobin 13.0 g/dL Low 14.0-18.0 Hematocrit 39 % Low 42-52 Mean Corpuscular Volume 90 fL Normal 80-94 Mean Corpuscular Hemoglobin 30 pg Normal 27-31 Mean Corpuscular HGB Conc 34 g/dL Normal 31-36 Red Cell Distribution Width 14 % Normal 10.5-15 Platelet Count 154 10^3/uL Normal 150-450 Mean Platelet Volume 8.4 fL Normal 7.4-10.4 Abs Neutrophils 4.4 10^3/uL Normal 1.5-7.7 Abs Lymphocytes 1.3 10^3/uL Normal 1.0-4.8 Abs Monocytes 0.8 10^3/uL Normal 0-0.8 Abs Eosinophils 0.1 10^3/uL Normal 0-0.6 Abs Basophils 0.0 10^3/uL Normal 0-0.2 Abs Nucleated RBC 0.0 10^3/uL Granulocyte % 67.1 % Lymphocyte % 19.6 % Monocyte % 12.0 % Eosinophil % 1.1 % Basophil % 0.2 % Nucleated Red Blood Cells % 0.0 Comp Metabolic 10/12/2018 [facility] Sodium 141 mmol/L Normal 135-145 Panel [address] [place] [address] [phone] Potassium 3.3 mmol/L Low 3.5-5.0 Chloride 106 mmol/L Normal 101-111 Co2 Carbon Dioxide 31 mmol/L Normal 22-32 Anion Gap 4 mmol/L Normal 2-11 Glucose 88 mg/dL Normal 70-100 Blood Urea Nitrogen 16 mg/dL Normal 6-24 Creatinine 0.90 mg/dL Normal 0.67-1.17 BUN/Creatinine Ratio 17.8 Normal 8-20 Calcium 8.6 mg/dL Normal 8.6-10.3 Total Protein 6.3 g/dL Low 6.4-8.9 Albumin 3.7 g/dL Normal 3.2-5.2 Globulin 2.6 g/dL Normal 2-4 Albumin/Globulin Ratio 1.4 Normal 1-3 Total Bilirubin 0.40 mg/dL Normal 0.2-1.0 Alkaline Phosphatase 58 U/L Normal 34-104 Alt 14 U/L Normal 7-52 Ast 14 U/L Normal 13-39 Egfr Non- 80.8 >60 Egfr 97.8 >60 9 Laboratory test 10/12/2018 [facility] C Reactive 2.66 mg/L Normal <8.[address] [place] [address] [phone] Stool Occult 10/12/2018 [facility] Stool Occult SEE RESULT 10 Blood Diag [address] Blood, [place] [address] [phone] 1 Because ethnic data is not always readily [...] 15-29 5 Kidney failure <15 (or dialysis) 2 Because ethnic data is not always readily [...] 15-29 5 Kidney failure <15 (or dialysis) 3 [id number] 4 SEE RESULT BELOW Name: YAKOV BLUE : [address]: Ritesh Sauceda NP Acct: [id number] Unit: [id number] AGE: 83 Location: [facility] Re11/07/18 SEX: M Status: REG REF SPEC: [id number] ANJUM: 11/07/18 [facility] DR: Ritesh Sauceda NP REQ: [id number] RECD: 11/07/18 STATUS: COMP _ SOURCE: STOOL SPDESC: ORDERED: Eva garcia PCR/S, Stool Culture/R, Fecal Lactoferr/R COMMENTS: [id number] Procedure Result Reported Site Stool Culture Final 11/09/18- 1207 ML Result No enteric pathogens isolated Testing [...] the microbiology lab if sensitivities are required. Stool Specimen Description Final 11/07/18- 1354 ML Stool Color Greenish Brown Stool Form Nonformed Stool Consistency Liquid Shiga Toxin 1 2 Final 11/08/18- 1551 ML Organism 1 Negative Shiga Toxin 1 2 Immunochromatographic Assay C. difficile PCR Final 11/07/18- 1441 ML Organism 1 027 Presumptive NEGATIVE Organism 2 Toxigenic C.diff NEGATIVE Fecal Lactoferrin (Stool WBC) Final 11/07/18- 1429 ML CONTINUED ON NEXT PAGE DEPARTMENT OF PATHOLOGY, [address] [place] [address] Jeb Reyes M.D. Director [facility] # [id number] Patient: YAKOV BLUE [id number] (Continued) Specimen: [id number] Collected: 11/07/18 Received: 11/07/18 (Continued) Procedure Result Reported Site Fecal Lactoferrin (Stool WBC) Final (continued) 11/07/18- 1429 Fecal Lactoferrin Positive by Immunoassay TEST LIMITATIONS: Assay detects elevated levels of lactoferrin released from fecal leukocytes as a marker of intestinal inflammation. The test may not be appropriate in immunocompromised persons. Fecal samples from breast fed infants should not be used with this assay. * ML - Main Lab . END OF REPORT DEPARTMENT OF PATHOLOGY, [address] [place] [address] Jeb Reyes M.D. Director [facility] # [id number] 5 Reference Value - Negative Test Performed by: [place] [address] 6 Reference Value - Negative Test Performed by: [facility] [place] [address] 7 Because ethnic data is not always readily [...] 15-29 5 Kidney failure <15 (or dialysis) 8 [facility] Severe Sepsis and Septic Shock Management Bundle Measure requires all lactic acids initially measuring >2.0 mmol/L be repeated. 9 Because ethnic data is not always readily [...] 15-29 5 Kidney failure <15 (or dialysis) 10 SEE RESULT BELOW Name: YAKOV BLUE : [address]: Yakov Holcomb MD Acct: [id number] Unit: [id number] AGE: 83 Location: ED Re10/12/18 SEX: M Status: DEP ER SPEC: [id number] ANJUM: 10/12/18-1520 [facility] DR: Yakov Holcomb MD REQ: [id number] RECD: 10/12/18 STATUS: DIEUDONNE FERNANDEZ DR: Ritesh Sauceda HEALTH MANAGEMENT CONSULTANT _ SOURCE: STOOL SPDESC: ORDERED: Occult Bl, Diag, C. diff PCR, Stool Culture, Fecal Lactoferr Procedure Result Reported Site Stool Culture Final 10/14/18- 1027 ML Result No enteric pathogens isolated Testing [...] the microbiology lab if sensitivities are required. Stool Specimen Description Final 10/12/18- 1545 ML Stool Color Brown Stool Form Nonformed Stool Consistency Liquid Shiga Toxin 1 2 Final 10/14/18- 1016 ML Organism 1 Negative Shiga Toxin 1 2 Immunochromatographic Assay C. difficile PCR Final 10/12/18- 1654 ML Organism 1 027 Presumptive NEGATIVE Organism 2 Toxigenic C.diff NEGATIVE Fecal Lactoferrin (Stool WBC) Final 10/12/18- 1653 ML Fecal Lactoferrin Positive by Immunoassay CONTINUED ON NEXT PAGE DEPARTMENT OF PATHOLOGY, [address] [place] [address] Jeb Reyes M.D. Director [facility] # [id number] Patient: YAKOV BLUE [id number] (Continued) Specimen: [id number] Collected: 10/12/18 Received: 10/12/18 (Continued) Procedure Result Reported Site Fecal Lactoferrin (Stool WBC) Final (continued) 10/12/18- 9729 TEST LIMITATIONS: Assay detects elevated levels of lactoferrin released from fecal leukocytes as a marker of intestinal inflammation. The test may not be appropriate in immunocompromised persons. Fecal samples from breast fed infants should not be used with this assay. Stool Occult Blood (1) Final 10/12/18- 1545 ML Stool Occult Blood Negative * ML - Main Lab . END OF REPORT DEPARTMENT OF PATHOLOGY, [address] [place] [address] Jeb Reyes M.D. Director [facility] # [id number] Procedures Date Code Description Status 02/11/2019 72643 EKG Tracing & Interpretation Completed 02/05/2019 24702 ECHO Transthoracic, Real-Time 2D With Doppler And Completed Color Flow 02/05/2019 85379 ECHO Transthoracic, Real-Time 2D With Doppler And Completed Color Flow 07/07/2013 [id number] Mammogram Completed 12/13/2011 34758564 Colonoscopy Completed 12/15/2009 155096677 Diabetic Retinal Eye Exam Completed 06/08/2009 87965564 Colonoscopy Completed 08/05/2003 [id number] Colonoscopy Completed 03/31/1999 30217010 Colonoscopy Completed Medical Devices Description No Information Available Encounters Type Date Location Provider Dx Diagnosis Office Visit 01/29/2019 [facility] Internal Zsofia Sohail, I10 Essential (primary ) 8:20a Medicine - [facility] [employer] hypertension E78.5 Hyperlipidemia, unspecified G47.33 Obstructive sleep apnea (adult) (pediatric) Z86.73 Prsnl hx of TIA (TIA), and cereb infrc w/o resid deficits K21.9 Gastro-esophageal reflux disease without esophagitis Office Visit 12/02/2018 9:30a Pulmonology And Janet G47.33 Obstructive sleep [facility] apnea (adult) [facility] (pediatric) Office Visit 11/06/2018 11:00a [facility] Internal Zsofia R19.7 Diarrhea, Medicine - [facility] Sohail, [employer] unspecified I10 Essential (primary) hypertension F33.1 Major depressive disorder, recurrent, moderate Office Visit 10/22/2018 [facility] Roby Z86.73 Prsnl hx of 10:00a Clinic Sivakumar, N.P. TIA (TIA), and cereb infrc w/o resid deficits G47.00 Insomnia, unspecified E78.5 Hyperlipidemia, unspecified G45.9 Transient cerebral ischemic attack, unspecified F33.1 Major depressive disorder, recurrent, moderate Office Visit 10/16/2018 8:40a [facility] Internal Zsofia Sohail, R19.7 Diarrhea, Medicine - [facility] [employer] unspecified I10 Essential (primary) hypertension F33.1 Major depressive disorder, recurrent, moderate Office Visit 10/14/2018 [facility] Gastroenterology Mulu R19.7 Diarrhea, 11:00a Rosalva, HEALTH MANAGEMENT CONSULTANT unspecified F33.1 Major depressive disorder, recurrent, moderate Office Visit 10/10/2018 [place] Javon Coleman, G45.9 Transient 10:15a Neurologic M.D. cerebral ischemic [facility] attack, unspecified F33.1 Major depressive disorder, recurrent, moderate E78.5 Hyperlipidemia, unspecified I10 Essential (primary) hypertension G47.00 Insomnia, unspecified Z86.73 Prsnl hx of TIA (TIA), and cereb infrc w/o resid deficits Office Visit 09/25/2018 2:40p [facility] Internal Zsofia Sohail, Z00.00 Encntr for Medicine [facility] general adult medical exam w/o abnormal findings I25.10 Athscl heart disease of [place] coronary artery w/o ang pctrs E78.5 Hyperlipidemia, unspecified I10 Essential (primary) hypertension G47.00 Insomnia, unspecified Z23 Encounter for immunization Office Visit 08/12/2018 3:30p [place] [facility] Mili Rodriguez I25.10 Athscl heart Foster, N.P. disease of [place] coronary artery w/o ang pctrs E78.5 Hyperlipidemia, unspecified I35.0 Nonrheumatic aortic (valve) stenosis I34.0 Nonrheumatic mitral (valve) insufficiency I10 Essential (primary) hypertension Assessments Date Code Description Provider 02/11/2019 I35.0 Nonrheumatic aortic (valve) stenosis Olaf Hahn M.D. 02/11/2019 I10 Essential (primary) hypertension Olaf Hahn M.D. 02/11/2019 G47.33 Obstructive sleep apnea (adult) Olaf Hahn M.D. (pediatric) 02/11/2019 E78.5 Hyperlipidemia, unspecified Olaf Hahn M.D. 02/11/2019 E66.9 Obesity, unspecified Olaf Hahn M.D. 02/11/2019 I77.819 Aortic ectasia, unspecified site Olaf Hahn M.D. 02/05/2019 I35.0 Nonrheumatic aortic (valve) stenosis Olaf Hahn M.D. 02/05/2019 I35.0 Nonrheumatic aortic (valve) stenosis [facility] Schedule 02/05/2019 I10 Essential (primary) hypertension [facility] Schedule 02/05/2019 G47.33 Obstructive sleep apnea (adult) [facility] Schedule (pediatric) 01/29/2019 I10 Essential (primary) hypertension ROBERTH Crow 01/29/2019 E78.5 Hyperlipidemia, unspecified Jadeofikushal Sauceda, [employer] 01/29/2019 G47.33 Obstructive sleep apnea (adult) JadeofiMELLISA ShieldsP (pediatric) 01/29/2019 Z86.73 Personal history of transient ischemic ROBERTH Crow attack (TIA), and cer 01/29/2019 K21.9 Gastro-esophageal reflux disease Zsofikushal Sauceda, [employer] without esophagitis 12/02/2018 G47.33 Obstructive sleep apnea (adult) Janet Rashid MD (pediatric) 11/06/2018 R19.7 Diarrhea, unspecified Zsofia Sohail, [employer] 11/06/2018 I10 Essential (primary) hypertension Ritesh Sauceda, [employer] 11/06/2018 F33.1 Major depressive disorder, recurrent, Zsofia ROBERTH Sauceda moderate 10/22/2018 Z86.73 Personal history of transient ischemic Roby Shaver, N.P. attack (TIA), and cer 10/22/2018 G47.00 Insomnia, unspecified Roby Shaver, N.P. 10/22/2018 E78.5 Hyperlipidemia, unspecified Roby Shaver, N.P. 10/22/2018 G45.9 Transient cerebral ischemic attack, Roby Shaver, N.P. unspecified 10/22/2018 F33.1 Major depressive disorder, recurrent, Roby Shaver, N.P. moderate 10/16/2018 R19.7 Diarrhea, unspecified Ritesh Sauceda, [facility] 10/16/2018 I10 Essential (primary) hypertension Ritesh Sauceda, [facility] 10/16/2018 F33.1 Major depressive disorder, recurrent, Ritesh Sauceda, [facility] moderate 10/14/2018 R19.7 Diarrhea, unspecified Mulu Blackwell, HEALTH MANAGEMENT CONSULTANT 10/14/2018 F33.1 Major depressive disorder, recurrent, Mulu Blackwell, HEALTH MANAGEMENT CONSULTANT moderate 10/10/2018 G45.9 Transient cerebral ischemic attack, Javon Coleman M.D. unspecified 10/10/2018 F33.1 Major depressive disorder, recurrent, Javon Coleman M.D. moderate 10/10/2018 E78.5 Hyperlipidemia, unspecified Javon Coleman M.D. 10/10/2018 I10 Essential (primary) hypertension Javon Coleman M.D. 10/10/2018 G47.00 Insomnia, unspecified Javon Coleman M.D. 10/10/2018 Z86.73 Personal history of transient ischemic Javon Coleman M.D. attack (TIA), and cer 09/25/2018 Z00.00 Encounter for general adult medical Ritesh SaucedaROBERTH examination without abno 09/25/2018 I25.10 Atherosclerotic heart disease of Ritesh Rojojhonny [facility] [place] coronary artery with 09/25/2018 E78.5 Hyperlipidemia, unspecified Greysonkushal Sohail, [facility] 09/25/2018 I10 Essential (primary) hypertension Ritesh Sauceda, [facility] 09/25/2018 G47.00 Insomnia, unspecified Ritesh Sauceda, [facility] 09/25/2018 Z23 Encounter for immunization Jadekailash Sohail, [facility] 08/12/2018 I25.10 Atherosclerotic heart disease of Mili King, N.P. [place] coronary artery with 08/12/2018 E78.5 Hyperlipidemia, unspecified Mili King N.P. 08/12/2018 I35.0 Nonrheumatic aortic (valve) stenosis Mili King, N.P. 08/12/2018 I34.0 Nonrheumatic mitral (valve) Kelley Castillo.Rajinder. insufficiency 08/12/2018 I10 Essential (primary) hypertension Mili King N.P. Plan of Treatment Future Appointment(s):03/05/2019 11:20 am - ROBERTH Crow at [facility] Internal Medicine - [facility]03/20/2019 3:15 pm - Javon Coleman M.D. at [place] [facility] Center02/11/2019 - Olaf Hahn M.D.I35.0 Nonrheumatic aortic (valve) izqtonqwA58 Essential (primary) hyobvlavujvmB57.33 Obstructive sleep apnea (adult) (pediatric)E78.5 Hyperlipidemia, ibkhqthuygzU50.9 Obesity, ejbkwumecnzO07.819 Aortic ectasia, unspecified siteNew Orders:Echocardiogram, Ordered: 02/11/19 Functional Status Description No Information Available Mental Status Description No Information Available Referrals Refer to Dr Reason for Referral Status Appt Date Janet Rashid MD Sent 12/02/[address] [place] [address] [phone] Clayton Damon MD Patient Declined [address] [place] [address] [phone]
--- OUTSIDE RECORDS SUMMARY | 2019-02-17 22:25 | XMS REPORT | Continuity of Care Document ---
:1935 External Reference #:[id number] Author Name ROBERTH Crow (transmitted by agent of provider Anabella Holm) Address [address] [place] [address] Care Team Providers Name Role Phone Olaf Hahn MD [facility] - Care Team Information S[facility] Gaug[facility] Cardiovascular Disease Ritesh Sauceda - Nurse Care Team Information Suture Gauger [phone] Practitioner Problems Active Problems Provider Date Cerebral [...] Mixed anxiety and depressive disorder Chriss Romero M.D.,[facility] Onset: 07/2016 Note: he does not see any psychiatrist at the moment. History of cerebrovascular accident Javon Coleman M.D. Onset: 02/12/2017 without residual deficits Cerebral ischemia Javon Coleman M.D. 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 Onset: 02/08/2018 Dysphagia Mulu Blackwell NP Onset: 04/03/2018 Note: 09/19/2016 Transient cerebral ischemia Javon Coleman M.D. Onset: 10/10/2018 Insomnia Javon Coleman M.D. Onset: 10/10/2018 Social History Type Date [...] Use Denies Drug Use Smoking Status Reviewed: 01/29/19 Patient is a former patient quit when [...] every 30tabs Ritesh Sauceda, 01/29/2019 5mg day [employer]PUT[employer] SHERIFF GENERALIST Tablets Lisinopril 1 by mouth every 30tabs I10 Ritesh Sauceda, 01/29/2019 10mg Tablets day [employer]PUT[employer] SHERIFF GENERALIST Potassium Chloride ER Take 1 Tablet By 90tabs I10 Ritesh Sauceda, 2018 Mouth Every Day DEPUT[employer] SHERIFF GENERALIST 20Meq Tablets ER Fluoxetine HCL (PMDD) 1 capsule by 30caps F33.1 Roby Shaver, 2018 mouth daily N.P. 10mg Capsules Trazodone HCL take 2 tablet by 180tabs G47.00 Ritesh Sauceda, 05/01/2018 50mg mouth every DEPUT[employer] SHERIFF GENERALIST Tablets night at bedtime as needed insomnia Levothyroxine Sodium take 1 tablet by 90tabs Ritesh Sauceda, 11/08/2017 mouth every day DEPUTY SHERIFF GENERALIST 125mcg Tablets Cpap Mask And Supplies cpap supplies - R06.81 Chriss Quinteros 08/16/2017 Nick godoy M.D.,[facility] Device cushion, tubing, filters, for sleep apnea R06.02 Atenolol take 1 tablet by 90tabs I10 Ritesh Sauceda, [facility] [place] 02/16/2017 50mg Tablets mouth every day Pantoprazole Sodium 1 by mouth every Unknown 20mg Tablets day Finasteride 1 by mouth every Unknown 5mg Tablets day Flomax 1 by mouth every Unknown 0.4mg Capsules day Paroxetine HCL 1 by mouth every Unknown 20mg Tablets day Chlorthalidone 1 by mouth every Unknown 25mg Tablets day Atorvastatin Calcium take 1 tablet by 90tabs R19.7 Ritesh Sauceda, [facility] [place] 80mg Tablets mouth every day History Medications Potassium Chloride ER Take 1 Tablet By 30tabs MELLISA CrowP 2018 - Mouth Every Day 01/29/2019 20Meq Tablets ER Aspir-Low 1 by mouth every 30tabs Roby Shaver, 10/11/2018 - 81mg Tablets day N.P. 01/29/2019 Fluoxetine HCL Take 1 by mouth 30tabs F33.1 Javon Coleman, 10/10/2018 - 10mg once a day M.D. 10/11/2018 Tablets Pantoprazole Sodium take one tablet 90tabs K21.9 MELLISA CrowP 2018 - by mouth once 12/01/[address] daily before breakfast Chlorthalidone 1 by mouth every 90tabs I10 [address] [facility] [place] 09/25/2018 - 25mg day Unknown Tablets Lisinopril 1 tab by mouth 90tabs I10 [address] [facility] [place] 09/25/2018 - 20mg Tablets every day 01/29/2019 Shingrix 2 doses 3 month 2units Z23 Rites[address] [facility] [place] 09/25/2018 - 50mcg/0.5ML apart Unknown Suspension Rec Tamsulosin HCL Take 1 Capsule 90caps Ritesh Sauceda, [facility] [place] 09/11/2018 - 0.4mg By Mouth AT 12/01/2018 Capsules Bedtime Medications Administered in Office Medication SIG Qnty Indications Ordering Provider Date PPD Injection Nurse Visit Frank 12/14/2017 Depomedrol 80MG Neymar Marrero M.D. 04/16/2012 Injection Immunizations CPT Code Status Date Vaccine Reaction Lot # [id number] Given 09/25/2018 Tdap - shot tolerated well, [id number] Tetanus/Diptheria/Acellula no immediate reaction. r Pertussis 79353 Given 02/28/2018 Fluzone High Dose 66787 Given 10/16/2017 Zoster (Shingles) Vaccine (HZV), Recombinant, Subunit, Adjuvanted 10145 Given 02/07/2017 Influenza Virus Vaccine, [id number] Quadrivalent, Split, Preservative Free 54827 Given 02/07/2017 Pneumococcal Conjugate pt tolerated well [id number] Vaccine 13 Valent For Intramuscular Use Q2037 Given 03/09/2012 Fluvirin Im 3Yrs And Older Q2038 Given 02/17/2011 Fluzone Vaccine [id number] 61173 Given 03/25/2010 Influenza Virus 3Yrs & [id number] Over 72712 Given 03/25/2007 Influenza Virus 3Yrs & Over 71609 Given 03/25/2007 Influenza Virus 3Yrs & Over 40345 Given 10/12/2002 Td (History By Patient) 59540 Given 11/11/2001 Pneumovax (History By Patient) Vital Signs Date Vital Result Comment 01/29/2019 8:19am Height 66 inches 5'6" Weight 187.38 lb Heart Rate 54 /min BP Systolic 103 mmHg BP Diastolic 56 mmHg Body Temperature 97.3 F O2 % BldC Oximetry 97 % BMI (Body Mass Index) 30.2 kg/m2 12/02/2018 9:18am Height 66 inches 5'6" Weight 187.00 lb Heart Rate 60 /min BP Systolic Sitting 120 mmHg Lue BP Diastolic Sitting 60 mmHg Lue Respiratory Rate 12 /min O2 % BldC Oximetry 95 % BMI (Body Mass Index) 30.2 kg/m2 Neck Circumference in inches 15.50 Results Test Date Facility Test Result H/L Range Note Laboratory test 12/19/2018 [facility] Potassium 3.3 mmol/L Low 3.5-5.[address] [place] [address] [phone] Magnesium 1.9 mg/dL Normal 1.9-2.7 Basic Metabolic 12/10/2018 [facility] Sodium 141 mmol/L Normal 135-[address] [place] [address] [phone] Potassium 3.1 mmol/L Low 3.5-5.0 Chloride 101 mmol/L Normal 101-111 Co2 Carbon Dioxide 36 mmol/L High 22-32 Anion Gap 4 mmol/L Normal 2-11 Glucose 98 mg/dL Normal 70-100 Blood Urea Nitrogen 30 mg/dL High 6-24 Creatinine 0.97 mg/dL Normal 0.67-1.17 BUN/Creatinine Ratio 30.9 High 8-20 Calcium 9.2 mg/dL Normal 8.6-10.3 Egfr Non- 74.1 >60 Egfr 89.7 >60 1 Laboratory test 11/07/2018 [facility] C Difficile PCR SEE RESULT 2, [address] [place] [address] [phone] Cryptosporidium And 11/07/2018 [facility] Cryptosporidium Negative [address] Ag, [place] [address] [phone] Giardia Antigen, Feces Negative 5 Comp Metabolic 11/06/2018 [facility] Sodium 141 mmol/L Normal 135-[address] [place] [address] [phone] Potassium 3.2 mmol/L Low 3.5-5.0 Chloride 101 [...] Egfr Non- 62.1 >60 Egfr 75.2 >60 6 Laboratory test 11/06/2018 [facility] C Reactive < 1.00 Normal <8.[address] Protein mg/[place] [address] [phone] CBC Auto Diff 11/06/2018 [facility] White Blood 6.8 Normal 3.5 -10.[address] Count 10^3/uL [place], [place] [id number] [phone] Red Blood Count 4.65 10^6/uL Normal 4.18-5.48 [...] Blood Cells % 0.1 Laboratory test 10/12/2018 [facility] Lactic Acid 1.0 mmol/L Normal 0.5-2.[address] [place] [address] [phone] CBC Auto Diff 10/12/2018 [facility] White Blood 6.5 10^3/uL Normal 3.5-10.[address] [place] [address] [phone] Red Blood Count 4.31 10^6/uL Normal 4.18-5.48 [...] Blood Cells % 0.0 Comp Metabolic 10/12/2018 [facility] Sodium 141 mmol/L Normal 135-[address] [place] [address] [phone] Potassium 3.3 mmol/L Low 3.5-5.0 Chloride 106 [...] Egfr Non- 80.8 >60 Egfr 97.8 >60 8 Laboratory test 10/12/2018 [facility] C Reactive 2.66 mg/L Normal <8.[address] [place] [address] [phone] Stool Occult 10/12/2018 [facility] Stool Occult SEE RESULT 9 Blood Di[address] Blood, [place] [address] [phone] 1 Because ethnic data is not always [...] 5 Kidney failure <15 (or dialysis) 2 [id number] 3 SEE RESULT BELOW Name: YAKOV BLUE : [address]: Ritesh Sauceda NP Acct: [id number] Unit: [id number] AGE: 83 Location: [facility] Re11/07/18 SEX: M Status: REG REF SPEC: [id number] ANJUM: 11/07/[address]: Ritesh Sauceda NP REQ: [id number] RECD: 11/07/18 STATUS: COMP _ SOURCE: STOOL SPDESC: ORDERED: C. diff PCR/S, Stool Culture/R, Fecal Lactoferr/R COMMENTS: [id number] Procedure Result Reported Site Stool Culture Final [...] CONTINUED ON NEXT PAGE DEPARTMENT OF PATHOLOGY, [address] [place] [address] Jeb Reyes M.D. Director [facility] # [id number] Patient: YAKOV BLUE [id number] (Continued) Specimen: [id number] Collected: 11/07/18 Received: 11/07/18 (Continued) Procedure Result Reported Site Fecal Lactoferrin (Stool WBC) Final (continued) 11/07/18- 1429 Fecal Lactoferrin Positive by Immunoassay TEST LIMITATIONS: Assay detects elevated levels of lactoferrin released from fecal leukocytes as a marker of intestinal inflammation. The test may not be appropriate in immunocompromised persons. Fecal samples from breast fed infants should not be used with this assay. * - [facility] . END OF REPORT DEPARTMENT OF PATHOLOGY, [address] [place] [address] Jeb Reyes M.D. Director [facility] # [id number] Reference Value - Negative Test Performed by: [place] [address] 5 Reference Value - Negative Test Performed by: [facility] [id number] 6 Because ethnic data is not always readily [...] 15-29 5 Kidney failure <15 (or dialysis) 7 [facility] Severe Sepsis and Septic Shock Management [...] (or dialysis) 9 SEE RESULT BELOW Name: YAKOV BLUE : [address]: Yakov Holcomb MD Acct: [id number] Unit: [id number] AGE: 83 Location: ED Re10/12/18 SEX: M Status: DEP ER SPEC: [id number] ANJUM: 10/12/[address] [facility] [address]: Yakov Holcomb MD REQ: [id number] RECD: 10/12/18 STATUS: DIEUDONNE FERNANDEZ DR: Ritesh Sauceda PIT HAND _ SOURCE: STOOL SPDESC: ORDERED: Occult Bl, [...] CONTINUED ON NEXT PAGE DEPARTMENT OF PATHOLOGY, [address] [place] [address] Jeb Reyes M.D. Director [facility] # [id number] Patient: YAKOV BLUE [id number] (Continued) Specimen: [id number] Collected: 10/12/18 Received: 10/12/18 (Continued) Procedure Result Reported Site Fecal Lactoferrin (Stool WBC) Final (continued) 10/12/181652 TEST LIMITATIONS: Assay detects elevated levels of [...] . END OF REPORT DEPARTMENT OF PATHOLOGY, [address] [place] [address] Jeb Reyes M.D. Director [facility] # [id number] Procedures Date Code Description Status 07/07/2013 [id number] Mammogram Completed 12/13/2011 [id number] Colonoscopy Completed 12/15/2009 [id number] Diabetic Retinal Eye Exam Completed 06/08/2009 [id number] Colonoscopy Completed 08/05/2003 [id number] Colonoscopy Completed 03/31/1999 [id number] Colonoscopy Completed Medical Devices Description No Information Available Encounters Type Date Location Provider Dx Diagnosis Office Visit 12/02/2018 Pulmonology And Janet Rashid, G47.33 Obstructive sleep 9:30a Sleep Services Of apnea (adult) [facility] (pediatric) Office Visit 11/06/2018 [facility] Internal Ritesh Sauceda, R19.7 Diarrhea, 11:00a Medicine - [facility] [employer]ERIFF GENERALIST unspecified I10 Essential (primary) hypertension F33.1 Major depressive disorder, recurrent, moderate Office Visit 10/22/2018 Neurohospitalist Roby Murray86.73 Prsnl hx of 10:00a Clinic Sivakumar N.P. TIA (TIA), and cereb infrc w/o resid deficits G47.00 Insomnia, unspecified E78.5 Hyperlipidemia, unspecified G45.9 Transient cerebral ischemic attack, unspecified F33.1 Major depressive disorder, recurrent, moderate Office Visit 10/16/2018 8:40a [facility] Internal Ritesh Sauceda, R19.7 [facility] GENERAL[facility] unspecified I10 Essential (primary) hypertension F33.1 Major depressive disorder, recurrent, moderate Office Visit 10/14/2018 [facility] Gastroenterology Mulu R19.7 Diarrhea, 11:00a Rosalva, PIT HAND unspecified F33.1 Major depressive disorder, recurrent, moderate Office Visit 10/10/2018 [place] Javon Coleman, G45.9 Transient 10:15a Neurologic M.D. 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 E78.5 Hyperlipidemia, unspecified I35.0 Nonrheumatic aortic (valve) stenosis I34.0 Nonrheumatic mitral (valve) insufficiency I10 Essential (primary) hypertension Assessments Date Code Description Provider 01/29/2019 I10 Essential (primary) hypertension ROBERTH Crow 01/29/2019 E78.5 Hyperlipidemia, unspecified Jadeofikushal Sauceda, DEPUT[employer] SHERIFF GENERALIST 01/29/2019 G47.33 Obstructive sleep apnea (adult) (pediatric) ROBERTH Crow 01/29/2019 Z86.73 Personal history of transient ischemic JadeofiROBERTH Shields attack (TIA), and cer 01/29/2019 K21.9 Gastro-esophageal reflux disease without Zsofia Sohail, DEPUTY SHERIFF GENERALIST esophagitis 12/02/2018 G47.33 Obstructive sleep apnea (adult) (pediatric) Janet Rashid MD 11/06/2018 R19.7 Diarrhea, unspecified Zsofia Sohail, DEPUT[employer] SHERIFF GENERALIST 11/06/2018 I10 Essential (primary) hypertension Ritesh Sauceda, DEPUT[employer] SHERIFF GENERALIST 11/06/2018 F33.1 Major depressive disorder, recurrent, Ritesh Sauceda, DEPUT[employer] SHERIFF GENERALIST moderate 10/22/2018 Z86.73 Personal history of transient ischemic Roby Shaver, N.P. attack (TIA), and cer 10/22/2018 G47.00 Insomnia, unspecified Roby Shaver, N.P. 10/22/2018 E78.5 Hyperlipidemia, unspecified Roby Shaver, N.P. 10/22/2018 G45.9 Transient cerebral ischemic attack, Roby Shaver, N.P. unspecified 10/22/2018 F33.1 Major depressive disorder, recurrent, Roby Shaver, N.P. moderate 10/16/2018 R19.7 Diarrhea, unspecified Jadeofia Sohail, DEPUT[employer] SHERIFF GENERALIST 10/16/2018 I10 Essential (primary) hypertension Ritesh Sauceda, [facility] 10/16/2018 F33.1 Major depressive disorder, recurrent, Ritesh Sauceda, 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 08/12/2018 I35.0 Nonrheumatic aortic (valve) stenosis Mili King N.P. 08/12/2018 I34.0 Nonrheumatic mitral (valve) insufficiency Mili King N.PDana 08/12/2018 I10 Essential (primary) hypertension Mili King N.P. Plan of Treatment Future Appointment(s):03/05/2019 11:20 am - ROBERTH Crow at [facility]/20/2019 3:15 pm - Javon Coleman M.D. at [place] [facility]02/11/2019 4:40 pm - Olaf Hahn M.D. at [place] Erwonukrcj50/04/2019 11:00 am - [place] [facility] Schedule at [facility]01/29/2019 - MELLISA CrowPI10 Essential (primary) hypertensionNew Medication:Lisinopril 10 mg - 1 by mouth every dayPotassium Chloride ER 20 Meq - Take 1 Tablet By Mouth Every DayComments:Your BP is low today.Will reduce the lisinopril dose to 10 mg/day and the amlodipine to 5 mg day.Please monitor your BP at home and call if it is running lower than 110 or higher than 140.Please start on the potassium.Follow up:4 weeks for HTNE78.5 Hyperlipidemia, vqodffpxfhpB37.33 Obstructive sleep apnea (adult) (pediatric) Z86.73 Personal history of transient ischemic attack (TIA), and cerK21.9 Gastro- esophageal reflux disease without esophagitis Functional Status Description No Information Available Mental Status Description No Information Available Referrals Refer to Reason for Referral Status Appt Date Janet Rashid MD Sent 12/02/[address] [place] [address] [phone] Clayton Damon MD Patient Declined [address] [facility] [place] [address] [phone]
[2019-02-17 22:55] LABS: Hematocrit 35 % (42-52); Hemoglobin 12.3 g/dL (14.0-18.0); Mean Corpuscular HGB Conc 35 g/dL (31-36); Mean Corpuscular Hemoglobin 32 pg (27-31); Mean Corpuscular Volume 90 fL (80-94); Red Blood Count 3.89 10^6 /uL (4.18-5.48); Red Cell Distribution Width 14 % (10-15); White Blood Count 7.2 10^3/uL (3.5-10.8)
[2019-02-17 23:05] LABS: Albumin 3.8 g/dL (3.2-5.2); Albumin/Globulin Ratio 1.6 (1-3); BUN/Creatinine Ratio 26.7 (8-20); Calcium 8.8 mg/dL (8.6-10.3); EGFR African American 97.8 (>60); EGFR Non-African American 80.8 (>60); Globulin 2.4 g/dL (2-4); Total Bilirubin 0.3 mg/dL (0.2-1.0); Total Protein 6.2 g/dL (6.4-8.9)
[2019-02-17 23:43] LABS: ABS Eosinophils 0.1 10^3/ul (0-0.6); ABS Lymphocytes 1.6 10^3/ul (1.0-4.8); ABS Monocytes 0.7 10^3/ul (0-0.8); ABS Neutrophils 4.7 10^3/ul (1.5-7.7); Eosinophil % 1.8 %; Platelet Count 151 10^3/uL (150-450)
[2019-02-17 23:55] LABS: Potassium 3.7 mmol/L (3.5-5.0)
[2019-02-18 02:38] VITALS: BP 154/67
== END 2019-02-18 02:29 | disposition home or self-care (01) ==
LOC: ED 22:06
DX: R07.9 Chest pain, unspecified (principal); Z87.891 Personal history of nicotine dependence; K21.9 Gastro-esophageal reflux disease without esophagitis; Z86.73 Personal history of transient ischemic attack (TIA), and cerebral infarction without residual deficits; G47.30 Sleep apnea, unspecified; Z79.01 Long term (current) use of anticoagulants; I10 Essential (primary) hypertension; I25.2 Old myocardial infarction; E78.00 Pure hypercholesterolemia, unspecified; Z79.899 Other long term (current) drug therapy
CPT/HCPCS: 36415; 71045; 80053; 83605; 84484; 85025; 93005; 99284